=== PATIENT | female | born 1945 | race Caucasian/White ===

== ENCOUNTER 2017-09-11 17:40 | Emergency (ER) | payer MEDICARE ==
[~2017-09-11] VITALS: Ht 167.6 cm; Wt 47.6 kg
[2017-09-11 18:28] LABS: BASOPHILS % 0.2 % (0.0-1.0); EOSINOPHILS # (AUTO) 0.2 (0.0-0.4); EOSINOPHILS % 1.7 % (0.0-6.0); HEMATOCRIT 32.9 % (34.2-44.1); HEMOGLOBIN 11.3 g/dL (12.0-16.0); LYMPHOCYTES # (AUTO) 1.5 (1.0-3.2); LYMPHOCYTES % 16.3 % (18.0-39.1); MEAN CORPUSCULAR HEMOGLOBIN 28.3 pg (28-32); MEAN CORPUSCULAR HGB CONC 34.3 g/dL (31-35); MEAN CORPUSCULAR VOLUME 82.5 fL (81-99); MONOCYTES # (AUTO) 0.6 (0.2-0.8); MONOCYTES % 6.7 % (4.4-11.3); NEUTROPHILS # (AUTO) 6.9 (2.1-6.9); NEUTROPHILS % 74.9 % (38.7-80.0); PLATELET COUNT 322 x10e3/uL (140-360); RED BLOOD COUNT 3.99 x10e6/uL (3.6-5.1); RED CELL DISTRIBUTION WIDTH 12.8 % (11.7-14.4)
[2017-09-11 18:51] LABS: ALANINE AMINOTRANSFERASE 11 IU/L (0-55); ALBUMIN 2.8 g/dL (3.5-5.0); ALBUMIN/GLOBULIN RATIO 0.9 (0.8-2.0); ALKALINE PHOSPHATASE 70 IU/L (40-150); ANION GAP 11.1 mmol/L (8-16); BLOOD UREA NITROGEN 9 mg/dL (7-26); BUN/CREATININE RATIO 16 (6-25); CALCIUM 8.5 mg/dL (8.4-10.2); CARBON DIOXIDE 23 mmol/L (22-29); CHLORIDE 100 mmol/L (98-107); CREATININE, SERUM 0.58 mg/dL (0.57-1.11); EST GLOMERULAR FILTRATION RATE > 60 ML/MIN (60-); GLUCOSE 100 mg/dL (74-118); POTASSIUM 3.1 mmol/L (3.5-5.1); SODIUM 131 mmol/L (136-145)
[2017-09-11] MEDS ORDERED: POTASSIUM CHLORIDE 10 MEQ TABCR PO ONE (19:45)
[2017-09-11 21:43] VITALS: BP 157/73
== END 2017-09-11 21:50 | disposition home or self-care (01) ==
LOC: ER 17:40
DX: R10.9 Unspecified abdominal pain (principal); R11.0 Nausea; R19.7 Diarrhea, unspecified; I10 Essential (primary) hypertension; I51.9 Heart disease, unspecified; J98.4 Other disorders of lung; J44.9 Chronic obstructive pulmonary disease, unspecified; E03.9 Hypothyroidism, unspecified; Z85.3 Personal history of malignant neoplasm of breast
CPT/HCPCS: 36415; 80053; 83735; 85025; 99283

== ENCOUNTER 2018-01-10 16:12 | Emergency (ER) | payer MEDICARE ==
[~2018-01-10] VITALS: Ht 167.6 cm; Wt 47.6 kg
[2018-01-10 17:02] VITALS: BP 155/80
== END 2018-01-10 17:08 | disposition home or self-care (01) ==
LOC: FSED 16:12
DX: R30.0 Dysuria (principal); N30.91 Cystitis, unspecified with hematuria; I10 Essential (primary) hypertension; J44.9 Chronic obstructive pulmonary disease, unspecified; Z85.3 Personal history of malignant neoplasm of breast
CPT/HCPCS: 81003; 87086; 87186; 99283

== ENCOUNTER 2018-11-19 09:41 | Emergency (ER) | payer MEDICARE ==
[~2018-11-19] VITALS: Ht 167.6 cm; Wt 47.6 kg
[2018-11-19] MEDS ORDERED: astelin INH (09:54)
[2018-11-19] MEDS ORDERED: FLUTICASONE PRO15 GM INH (09:54)
[2018-11-19] MEDS ORDERED: LEVOTHYROXINE75 MCG PO (10:00)
[2018-11-19] MEDS ORDERED: SODIUM CHLORI1000 MG (10:00)
[2018-11-19] MEDS ORDERED: VENTOLIN HFA18 GM INH (10:00)
[2018-11-19] MEDS ORDERED: PROBIOTIC DIGE1 EACH (10:00)
[2018-11-19] MEDS ORDERED: ESTER-C 1,0001 EACH (10:00)
[2018-11-19] MEDS ORDERED: XOPENEX0.63 MG/3 INH (10:00)
[2018-11-19] MEDS ORDERED: OMEPRAZOLE20 MG PEG (10:00)
[2018-11-19] MEDS ORDERED: MULTI-VITAMIN1 EACH (10:00)
[2018-11-19] MEDS ORDERED: ZOFRAN4 MG PO (10:00)
[2018-11-19] MEDS ORDERED: POTASSIUM CHLO20 ME1 PO (10:00)
[2018-11-19] MEDS ORDERED: SPIRIVA18 MCG INH (10:00)
[2018-11-19] MEDS ORDERED: PROMETHAZINE HC25 M1 PO (10:00)
[2018-11-19] MEDS ORDERED: ZOCOR20 MG PO (10:00)
[2018-11-19] MEDS ORDERED: ADVAIR 500/501 EA INH (10:00)
[2018-11-19] MEDS ORDERED: TAMOXIFEN CITRA10 MG PO (10:01)
--- NOTE | 2018-11-19 10:06 | NUR ---
escorted md for visual of gu area.
--- NOTE | 2018-11-19 10:09 | NUR ---
CX COLLECTED AND LABELLED AND PLACED IN FRIDGE FOR COLLECTION FOR PMC
== END 2018-11-19 10:14 | disposition home or self-care (01) ==
LOC: FSED 09:41
DX: R30.0 Dysuria (principal); R10.2 Pelvic and perineal pain; I10 Essential (primary) hypertension; J44.9 Chronic obstructive pulmonary disease, unspecified; Z85.3 Personal history of malignant neoplasm of breast
CPT/HCPCS: 81003; 87086; 99283

== ENCOUNTER 2020-04-14 10:59 | Emergency (ER) | payer MEDICARE ==
[~2020-04-14] VITALS: Ht 167.6 cm; Wt 49.0 kg
[~2020-04-14 10:59] MED LIST: ADVAIR 500/501 EA INH; ESTER-C 1,0001 EACH; FLUTICASONE PRO15 GM INH; LEVOTHYROXINE75 MCG PO; MULTI-VITAMIN1 EACH; OMEPRAZOLE20 MG PEG; POTASSIUM CHLO20 ME1 PO; PROBIOTIC DIGE1 EACH; PROMETHAZINE HC25 M1 PO; SODIUM CHLORI1000 MG; SPIRIVA18 MCG INH; TAMOXIFEN CITRA10 MG PO; VENTOLIN HFA18 GM INH; XOPENEX0.63 MG/3 INH; ZOCOR20 MG PO; ZOFRAN4 MG PO; astelin INH
[2020-04-14] MEDS ORDERED: CEPHALEXIN500 MG PO (11:51)
--- NOTE | 2020-04-14 11:57 | Emergency Department Note ---
History of Present Illnes History of Present Illness Chief Complaint: Genitourinary History of Present Illness This is a 74 year old female that has had difficulty urinating for the past week. Patient states that she has a sense of urgency after she started urinating. Patient denies dysuria. Patient states that she has had prior bladder suspension surgeries and today she feels like prior to needing one of them. Denies any fever or chills, no flank pain. . Arrival Mode: Car Onset (how long ago): week(s) (1) Radiation: Reports non-radiation Severity: moderate Duration (how long): week(s) (1) Timing of current episode: constant Progression: worsening Chronicity: recurrent Relieving factors: none Exacerbating factors: none Associated symptoms: Denies denies other symptoms, Denies confusion, Denies chest pain, Denies cough, Denies fever/chills, Denies nausea/vomiting, Denies shortness of breath Treatments prior to arrival: none Past Medical/Family History Physician Review I have reviewed the patient's past medical and family history. Any updates have been documented here. Past Medical History Past Medical History: Hypertension, COPD, Asthma, Hypothyroidism, Cancer, UTI's, GERD, Hyperlipedemia Other Medical History: Breast cancer Hyponatremia Past Surgical History: Cholecysctectomy, Hysterectomy, Hernia Repair Other Surgery: Hernia Repair vein stripping Other Last Tetanus: UNK Review of Systems Review of Systems Constitutional: Reports no symptoms EENTM: Reports no symptoms Cardiovascular: Reports no symptoms Respiratory: Reports no symptoms Gastrointestinal: Reports no symptoms Genitourinary: Reports as per HPI Musculoskeletal: Reports no symptoms Integumentary: Reports no symptoms Neurological: Reports no symptoms Psychological: Reports no symptoms Endocrine: Reports no symptoms Hematological/Lymphatic: Reports no symptoms Physical Exam Related Data Allergies: Coded Allergies: No Known Allergies (Unverified , 09/11/17) Physical Exam CONSTITUTIONAL Constitutional: Present well-developed, Present well-nourished HENT HENT: Present normocephalic, Present atraumatic, Present oropharynx c lear/moist, Present nose normal HENT L/R: Present left ext ear normal, Present right ext ear normal EYES Eyes: Reports PERRL, Reports conjunctivae normal NECK Neck: Present ROM normal PULMONARY Pulmonary: Present effort normal, Present breath sounds normal CARDIOVASCULAR Cardiovascular: Present regular rhythm, Present heart sounds normal, Present capillary refill normal, Present normal rate GASTROINTESTINAL Abdominal: Present soft, Present nontender, Present bowel sounds normal GENITOURINARY Genitourinary: Present other (therapy RN present in the room, no bladder prolapse through the introitus) SKIN Skin: Present warm, Present dry MUSCULOSKELETAL Musculoskeletal: Present ROM normal NEUROLOGICAL Neurological: Present alert, Present oriented x 3, Present no gross motor or sensory deficits PSYCHOLOGICAL Psychological: Present mood/affect normal, Present judgement normal Assessment & Plan Medical Decision Making MDM 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 Patient feels that she is unable to empty her bladder. Lbrao-ld-mxxf ultrasound did not reveal a distended bladder, patient d id try to urinate prior to and felt that she could not void fully. We did place a Spencer catheter, minimal residual. Patient would like to leave the Spencer catheter in and have her surgeon evaluate her. We did send urine for culture, did have some leuk esterase on the dipstick. We will treat given that we cannot get a micro here. Assessment & Plan Final Impression: (1) UTI (urinary tract infection) (2) Urinary urgency Depart Disposition: HOME, SELF-FCI Meds Active Scripts Cephalexin (CEPHALEXIN) 500 Mg Capsule, 500 MG PO TID for 7 Days, CAP Prov:AGUILAR HINES MD 04/14/20 Reported Medications Tamoxifen Citrate (TAMOXIFEN CITRATE) 10 Mg Tablet, 20 MG PO DAILY, #30 TAB 11/19/18 Sodium Chloride (SODIUM CHLORIDE) 1,000 Mg Tablet.carolyn 11/19/18 Promethazine Hcl (PROMETHAZINE HCL) 25 Mg Tablet, 25 MG PO DAILY, TAB 11/19/18 Ondansetron Hcl* (ZOFRAN*) 4 Mg Tablet, 4 MG PO PRN 11/19/18 Potassium Chloride (POTASSIUM CHLORIDE) 20 Meq Tab.er.prt, 1 CAP PO DAILY 11/19/18 Ascorbate Calcium/Bioflav (JULIANE-C 1,000 MG TABLET) 1 Each Tablet 11/19/18 Omeprazole (OMEPRAZOLE) 20 Mg Capsule.dr, 1 CAP PEG DAILY 11/19/18 Multivitamin (MULTI-VITAMIN DAILY) 1 Each Tablet 11/19/18 Lactobacillus Rhamnosus R0011 (PROBIOTIC DIGESTIVE CARE) 1 Each Capsule 11/19/18 Tiotropium Moyers (SPIRIVA) 18 Mcg Cap.w.dev, 18 MCG INH DAILY, BOTTLE 11/19/18 Levothyroxine Sodium (LEVOTHYROXINE SODIUM) 75 Mcg Tablet, 75 MCG PO DAILY, #30 TAB 11/19/18 Simvastatin (ZOCOR) 20 Mg Tablet, 20 MG PO HS, #30 TAB 11/19/18 Salmeterol Xinaf/Fluticasone* (ADVAIR 500/50*) 1 Ea Aerp, 1 INH INH Q12H, #1 INH 11/19/18 Levalbuterol Hcl (XOPENEX) 0.63 Mg/3 Ml Vial.neb, 63 MCG INH PRN 11/19/18 Albuterol Sulfate (VENTOLIN HFA) 18 Gm Hfa.aer.ad, 90 MCG INH pr 11/19/18 [astelin] No Conflict Check, 137 MCG INH PRN 11/19/18 Fluticasone Propionate (FLUTICASONE PROPIONATE) 15 Gm Cr, 50 MCG INH PRN 11/19/18 AGUILAR HINES MD Apr 14, 2020 11:57
--- OUTSIDE RECORDS SUMMARY | 2020-04-14 11:57 | XMS REPORT | Summary of Care ---
Author Author [facility] Organization [facility] Address Unknown Phone Unavailable Encounter TOYIN Mcdowell(ANT) [id number] Date(s): 11/08/19 - 11/08/[address] [address]- Discharge Disposition: Home or Self Care Attending Physician: Juanjose Meyer MD Referring Physician: Juanjose Meyer MD Vital Signs No data available for this section Problem List Condition Effective Dates Status Health Status Informaria Lynn 12/22/14 Active baumannii(Confirmed) 1, 2 Arthritis of 01/01/11 Active acromioclavicular joint3, 4 Asthma5, 6 Active Breast Active ca(Confirmed)7 Chemotherapy(Confirm Resolved ed)8 Cholecystectomy(Conf Active irmed) Chronic obstructive Active pulmonary disease(Confirmed) Female stress Active incontinence(Confirm ed) 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) GERD Active (gastroesophageal reflux disease)(Confirmed) HTN - Active Hypertension(Confirm ed) Hyponatremia(Confirm Resolved ed) Hypothyroidism(Confi Active rmed) Hysterectomy(Confirm Active ed) Midline Active cystocele(Confirmed) Osteoporosis(Confirm Active ed) Rotator cuff 01/01/11 Active syndrome9, 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/01/11 Active [id number], 12 Sprain of foot13, 14 01/01/11 Active Uterine Active prolapse(Confirmed) Enterocele(Confirmed Active ) 1MDRO -- SPUTUM, 12/22/2014 2Problem added by Discern Expert. 3Data migrated from [employer] on 02/11/15. 4Data migrated from [employer] on 02/11/15. 5Data migrated from [employer] on 02/11/15. 6Data migrated from [employer] on 02/11/15. 7right breast 83 weeks ago got last chemo 9Data migrated from [employer] on 02/11/15. 10Data migrated from [employer] on 02/11/15. 11Data migrated from [employer] on 02/11/15. 12Data migrated from [employer] on 02/11/15. 13Data migrated from [employer] on 02/11/15. 14Data migrated from [employer] on 02/11/15. Allergies, Adverse Reactions, Alerts Substance Reaction Severity Status "RAW SHRIMP" Active NKDA Active Food Shrimp Active Medications No data available for this section Results No data available for this section Immunizations Given and Recorded Vaccine Date Status Refusal Reason Hx influenza vaccine-unspecified 05/14/17 Given influenza virus vaccine, inactivated 07/02/14 G iven Hx pneumococcal vaccine 11/12/11 Given Procedures Procedure Date Related Diagnosis Body Site Status Bladder operation Completed Cholecystectomy Completed Hernia repair Completed Hysterectomy Completed Insertion of [id number] Completed 1left side. oct 2014 placed Social History Social History Type Response Alcohol Past1 Employment/School Status: Employed. Highest education level: University degree(s). Exercise Exercise type: Walking, Yog a. Sexual Sexually active: No. Substance Abuse Use: None. Smoking Status Former smoker; Previous frankie atment: None; Ready to change: No; Concerns about tobacco use in household: No; Exp osure to Tobacco Smoke None; Cigarette Smoking Last 365 Days No; Reg Smoking Cessation Counseling No; Started at age: 1.0; Stopped at age: 1 ; 2 entered on: 07/31/19 1"when I was younger" stated by patient, does not consume alcohol anymore. 2smoked 25 years ago, stopped smoking Assessment and Plan No data available for this section
--- OUTSIDE RECORDS SUMMARY | 2020-04-14 11:57 | XMS REPORT ---
Author Author CECILY ALMAZAN [facility] eClinicalWorks Address Unknown Phone Unavailable Care Team Providers Care Iuss Acoustic Analyst Name Role Phone TALI ALMAZAN Unavailable Allergies, Adverse Reactions, Alerts Substance Reaction Event Type N.K.D.A. Info Not Available Non Drug Allergy Problems Problem Type Condition Code Onset Dates Condition Statu s Problem COPD 496 Active Problem Sinusitis, Chronic 473.9 Active Problem Asthmatic Bronchitis, Unspecified 493.90 Active Assessment ASTHMA NOS 493.90 Active Assessment Sinusitis, Chronic 473.9 Active Problem Asthma w/Acute Exacerbation 493.92 Active Medications Medication Code System Code Instructions Start Date End Date Status Dosage simvastatin [facility] 86072917860 20 mg orally once a day (at bedtim e) December 29, 2011 Active 1 tab(s) omega-3 polyunsaturated fatty acids [facility] 65100522042 ethyl esters 1000 mg orally 2 times a day Active 2 cap(s) Linda-C [facility] 59723072264 1000 mg orally once a day Ac tive 1 tab(s) Calcium 600+D [facility] 54342578561 600 mg-200 units orally 3 times a day Active 1 tab(s) Zocor ND 89348036750 20 mg orally once a day (at bedtime) Active 1 tab(s) Duexis [facility] 40030263453 26.6 mg-800 mg orally 3 times a day Active 1 tab(s) levothyroxine [facility] 12401762407 75 mcg (0.075 mg) orally once a day Active 1 tab(s) Spiriva NDC 0 18MCG inhaled QD Active inhale one via handihaler one time daily Saline Mist ND 06880249011 0.65% intranasally bid Jun 23, 2012 Active 2 spray(s) Advair Diskus ND 51289643843 500 mcg-50 mcg inhaled bid December 132012 Active use one inhalation twice daily Ventolin HFA NDC 0 CFC free 90 mcg/inh inhaled qid January 06 013 Active 2 puff(s) Xopenex NDC 76383210666 0.63 mg/3 mL by nebulizer bid Active 3 ml Boniva NDC 85328471135 150 mg orally once a month A ctive 1 tab(s) Diovan NDC 50230263149 80 mg orally once a day Acti ve 1 tab(s) Astelin NDC 0 137 mcg/inh intranasally QD January 06, 2013 Active 2 spray(s) fluticasone nasal NDC 28850376198 50 mcg/inh intranasally once a day Sep 26, 2012 Active 1 spray(s) Vital Signs Date/Time: February 28, 2013 Temperature 98.2 F Height N/A in Weight 125 lbs BMI 20.17 Index Cardiac Monitoring Heart Rate 84 /min Blood Pressure Diastolic 58 mm Hg Blood Pressure Systolic 126 mm Hg Results No Known Results Summary Purpose eClinicalWorks Submission
--- OUTSIDE RECORDS SUMMARY | 2020-04-14 11:57 | XMS REPORT ---
Author Author CECILY ALMAZAN [facility] eClinicalWorks Address Unknown Phone Unavailable Care Team Providers Care Sap Basis Administrator Name Role Phone TALI ALMAZAN Unavailable Allergies, Adverse Reactions, Alerts Substance Reaction Event Type N.K.D.A. Info Not Available Non Drug Allergy Problems Problem Type Condition Code Onset Dates Condition Statu s Assessment Sinusitis, Acute, Unspecified 461.9 Active Assessment Dyspnea 786.09 Active Problem COPD 496 Active Problem Sinusitis, Chronic 473.9 Active Problem Asthmatic Bronchitis, Unspecified 493.90 Active Assessment Asthmatic Bronchitis, Unspecified 493.90 Active Assessment Sinusitis, Chronic 473.9 Active Problem Asthma w/Acute Exacerbation 493.92 Active Medications Medication Code System Code Instructions Start Date End Date Status Dosage Calcium 600+D ND 75830500197 600 mg-200 units orally 3 times a day Active 1 tab(s) Spiriva NDC 0 18MCG inhaled QD Active inhale one via handihaler one time daily levothyroxine NDC 98651564681 75 mcg (0.075 mg) orally once a day Active 1 tab(s) Astelin NDC 0 137 mcg/inh intranasally QD January 06, 2013 Active 2 spray(s) Xopenex NDC 32313597007 0.63 mg/3 mL by nebulizer bid Active 3 ml Duexis ND 54215586020 26.6 mg-800 mg orally 3 times a day Active 1 tab(s) Advair Diskus NDC 96529052390 500 mcg-50 mcg inhaled bid December 132012 Active use one inhalation twice daily Boniva NDC 29202007231 150 mg orally once a month April 03, 2013 Active 1 tab(s) Zocor NDC 91429450391 20 mg orally once a day (at bedtime) Active 1 tab(s) Saline Mist NDC 77958713495 0.65% intranasally bid Jun 23, 2012 Active 2 spray(s) fluticasone nasal NDC 88536970530 50 mcg/inh intranasally once a day Sep 26, 2012 Active 1 spray(s) guaifenesin [facility] 08556619699 400 mg orally every 4 hours Apr 28, 2013 Active 1 tab(s) Avelox ND 34302906465 400 mg orally once a day Apr 28, 2013 Active 1 tab(s) Diovan ND 53279303276 80 mg orally once a day Acti ve 1 tab(s) omega-3 polyunsaturated fatty acids [facility] 16102291539 ethyl esters 1000 mg orally 2 times a day Active 2 cap(s) Linda-C [facility] 56531951202 1000 mg orally once a day Ac tive 1 tab(s) Ventolin HFA NDC 0 CFC free 90 mcg/inh inhaled qid January 06 013 Active 2 puff(s) simvastatin ND 20986792371 20 mg orally once a day (at bedtim e) April 03, 2013 Active 1 tab(s) Vital Signs Date/Time: Apr 28, 2013 Temperature 98.3 F Height N/A in Weight 126 lbs BMI 20.33 Index Cardiac Monitoring Heart Rate 76 /min Blood Pressure Diastolic 72 mm Hg Blood Pressure Systolic 128 mm Hg Results No Known Results Summary Purpose eClinicalWorks Submission
--- OUTSIDE RECORDS SUMMARY | 2020-04-14 11:57 | XMS REPORT ---
Author Author CECILY ALMAZANNHCRISSY [facility] eClinicalWorks Address Unknown Phone Unavailable Care Team Providers Care Senior Integration Architect Name Role Phone TALI ALMAZAN Unavailable Allergies, Adverse Reactions, Alerts Substance Reaction Event Type N.K.D.A. Info Not Available Non Drug Allergy Encounters Encounter Location Date Unknown [facility] April 12, 2014 lab results [facility] January 31, 2013 [facility] Aug 17, 2013 [facility] November 16, 2013 Problems Problem Type Condition ICD-9 Code Onset Dates Condition Statu s Problem COPD 496 Active Problem Sinusitis, Chronic 473.9 Active Problem Asthmatic Bronchitis, Unspecified 493.90 Active Assessment Sinusitis, Chronic 473.9 Active Assessment ASTHMA NOS 493.90 Active Problem Asthma w/Acute Exacerbation 493.92 Active Assessment COPD 496 Active Medications Medication Code System Code Instructions Start Date End Date Status Dosage Boniva MULTUM 27651 150 mg orally once a month April 03, 2013 Active 1 tab(s) Zocor [facility] 1546 20 mg orally once a day (at bedtime) Active 1 tab(s) Avelox MULTUM 39523 400 mg orally once a day Apr 28, 2013 Ac tive 1 tab(s) Diovan [facility] 8844 80 mg orally once a day Active 1 tab(s) Mucinex [facility] 56357 600 mg orally every 12 hours Aug 03, 2013 Active 1 tab(s) Xopenex [facility] 78701 0.63 mg/3 mL by nebulizer bid Ac tive 3 ml Astelin [facility] 6422 137 mcg/inh intranasally QD February 08, 2014 Active 2 spray(s) Linda-C [facility] 28978 1000 mg orally once a day Active 1 tab(s) Duexis [facility] 488856 26.6 mg-800 mg orally 3 times a day Active 1 tab(s) fluticasone nasal [facility] 52357 50 mcg/inh intranasally once a day Jul 18, 2013 Active 1 spray(s) simvastatin [facility] 39237 20 mg orally once a day (at bedtime) J imelda 2012 Active 1 tab(s) Ventolin HFA [facility] 96847 CFC free 90 mcg/inh inhaled qid prn J an 2013 Active 2 puff(s) Saline Mist [facility] 38433 0.65% intranasally bid Jun 23, 2012 Active 2 spray(s) Spiriva [facility] 12108 18MCG inhaled QD Active inhale one via handihaler one time daily Advair Diskus [facility] 94566 500 mcg-50 mcg inhaled bid January 06, 2013 Active use one inhalation twice daily guaifenesin [facility] 86893 400 mg orally every 4 hours Apr 28, 2013 Active 1 tab(s) omega-3 polyunsaturated fatty acids [facility] 71731 ethyl esters 1000 mg orally 2 times a day Active 2 cap(s) ibandronate [facility] 79625 150 mg orally once a month March 13, 2014 Active 1 tab(s) levothyroxine [facility] 98061 75 mcg (0.075 mg) orally once a day March 12, 2014 Active 1 tab(s) Calcium 600+D [facility] 089023 600 mg-200 units orally 3 times a day Active 1 tab(s) Social History Social History Element Qualifiers Date Reported Caffeine: yes. frequency:2 cups a day April 12 14 Tabacco Use no. Status Former Smoker April 12, 2014 Vital Signs Date/Time: April 12, 2014 Temperature 98.6 F Height 66 in Weight 117 lbs Cardiac Monitoring Heart Rate 67 /min Blood Pressure Diastolic 74 mm Hg Blood Pressure Systolic 136 mm Hg Summary Purpose eClinicalWorks Submission
--- OUTSIDE RECORDS SUMMARY | 2020-04-14 11:57 | XMS REPORT | Summary of Care ---
Author Author [facility] Organization [facility] Address Unknown Phone Unavailable Encounter TOYIN Mcdowell(FIN) [id number] Date(s): 07/14/19 - 07/15/19 [facility] [address] [place] [address]- [phone] Vital Signs No data available for this section Problem List Condition Effective Dates Status Health Status Informan t Acinetobacter 12/22/14 Active baumannii(Confirmed) 1, 2 Arthritis of [...] Active syndrome9, 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/01/11 Active [id number], 12 Sprain of foot13, 14 01/01/11 Active [...] Active NKDA Active Food Shrimp Active Medications amoxicillin 500 mg oral capsule 500 mg = 1 cap, PO, TID, X 7 day, # 21 cap, 0 Refill(s), Pharmacy: [id number] Start Date: 07/14/19 Stop Date: 07/21/19 Status: Ordered Results No data available for this section Immunizations Given and Recorded Vaccine Date Status Refusal Reason Hx influenza vaccine-unspecified 05/14/17 Given influenza virus vaccine, inactivated 07/02/14 G iven Hx pneumococcal vaccine 11/12/11 Given Procedures Procedure Date Related Diagnosis Body Site Status Bladder operation Completed Cholecystectomy Completed Hernia repair Completed Hysterectomy Completed Insertion of [id number] Completed 1left side. oct 2014 placed Social [...] at age: 1 ; 2 entered on: 07/11/19 1"when I was younger" stated by patient, does not consume alcohol anymore. 2smoked 25 years ago, stopped smoking Assessment and Plan No data available for this section
--- OUTSIDE RECORDS SUMMARY | 2020-04-14 11:57 | XMS REPORT ---
Author Author CECILY ALMAZAN Organization [employer]Clinical[employer] Address Unknown Phone Unavailable Care Team Providers Care Claims Account Specialist Name Role Phone TALI ALMAZAN Unavailable Encounters Encounter Location Date Unknown [facility] April 12, 2014 [facility] Jun 14, 2014 lab results [facility] January 31, 2013 [facility] Aug 17, 2013 [facility] November 16, 2013 Problems Problem Type Condition ICD-9 Code Onset Dates Condition Statu s Problem COPD 496 Active Problem Sinusitis, Chronic 473.9 Active Problem Asthmatic Bronchitis, Unspecified 493.90 Active Problem Asthma w/Acute Exacerbation 493.92 Active Medications Medication Code System Code Instructions Start Date End Date Status Dosage Levaquin MULT[facility] 6466 500 mg orally every 24 hours Jun 14, 2014 Active 1 tab(s) Social History Social History Element Qualifiers Date Reported Caffeine: yes. frequency:2 cups a day April 12 14 Tabacco Use no. Status Former Smoker April 12, 2014 Summary Purpose eClinicalWorks Submission
--- OUTSIDE RECORDS SUMMARY | 2020-04-14 11:57 | XMS REPORT ---
Author Author CECILY ALMAZAN [facility] eClinicalWorks Address Unknown Phone Unavailable Care Team Providers Care Living Advisor Name Role Phone TALI ALMAZAN Unavailable Allergies, Adverse Reactions, Alerts Substance Reaction Event Type N.K.D.A. Info Not Available Non Drug Allergy Problems Problem Type Condition Code Onset Dates Condition Statu s Problem COPD 496 Active Problem Sinusitis, Chronic 473.9 Active Problem Asthmatic Bronchitis, Unspecified 493.90 Active Assessment COPD 496 Active Assessment Sinusitis, Chronic 473.9 Active Problem Asthma w/Acute Exacerbation 493.92 Active Medications Medication Code System Code Instructions Start Date End Date Status Dosage Ventolin HFA NDC 0 CFC free 90 mcg/inh inhaled qid January 06 013 Active 2 puff(s) Linda-C NDC 34934863237 1000 mg orally once a day Ac tive 1 tab(s) Boniva ND 26635372512 150 mg orally once a month April 03, 2013 Active 1 tab(s) Saline Mist ND 67304776133 0.65% intranasally bid Jun 23, 2012 Active 2 spray(s) Advair Diskus ND 02207236582 500 mcg-50 mcg inhaled bid December 132012 Active use one inhalation twice daily Avelox ND 30819262951 400 mg orally once a day Apr 28, 2013 Active 1 tab(s) fluticasone nasal NDC 97302691661 50 mcg/inh intranasally once a day Sep 26, 2012 Active 1 spray(s) Duexis ND 48898261036 26.6 mg-800 mg orally 3 times a day Active 1 tab(s) Zocor ND 59690333713 20 mg orally once a day (at bedtime) Active 1 tab(s) Astelin NDC 0 137 mcg/inh intranasally QD January 06, 2013 Active 2 spray(s) guaifenesin ND 26045123207 400 mg orally every 4 hours Apr 28, 2013 Active 1 tab(s) omega-3 polyunsaturated fatty acids NDC 63857163995 ethyl esters 1000 mg orally 2 times a day Active 2 cap(s) simvastatin ND 21719929615 20 mg orally once a day (at bedtim e) April 03, 2013 Active 1 tab(s) Calcium 600+D ND 80276553729 600 mg-200 units orally 3 times a day Active 1 tab(s) Diovan ND 96045435977 80 mg orally once a day Acti ve 1 tab(s) Xopenex ND 19103804491 0.63 mg/3 mL by nebulizer bid Active 3 ml Spiriva NDC 0 18MCG inhaled QD Active inhale one via handihaler one time daily levothyroxine ND 92041836753 75 mcg (0.075 mg) orally once a day May 26, 2013 Active 1 tab(s) Vital Signs Date/Time: Jun 12, 2013 Temperature 98.5 F Height N/A in Weight 126 lbs BMI 20.33 Index Cardiac Monitoring Heart Rate 67 /min Blood Pressure Diastolic 70 mm Hg Blood Pressure Systolic 124 mm Hg Results No Known Results Summary Purpose eClinicalWorks Submission
--- OUTSIDE RECORDS SUMMARY | 2020-04-14 11:57 | XMS REPORT ---
Author Author CECILY ALMAZAN [facility] eClinicalWorks Address Unknown Phone Unavailable Care Team Providers Care Material Checker Name Role Phone TALI ALMAZAN Unavailable Encounters Encounter Location Date Unknown [facility] April 12, 2014 [facility] Jun 14, 2014 [facility] Jul 20, 2014 [facility] Aug 16, 2014 lab results [facility] January 31, 2013 [facility] Aug 17, 2013 [facility] November 16, 2013 Problems Problem Type Condition ICD-9 Code Onset Dates Condition Statu s Problem COPD 496 Active Problem Sinusitis, Chronic 473.9 Active Problem Asthmatic Bronchitis, Unspecified 493.90 Active Problem Asthma w/Acute Exacerbation 493.92 Active Social History Social History Element Qualifiers Date Reported Caffeine: yes. frequency:2 cups a day Aug 20 4 Tabacco Use no. Status Former Smoker Aug 20, 2014 Summary Purpose eClinicalWorks Submission
--- OUTSIDE RECORDS SUMMARY | 2020-04-14 11:57 | XMS REPORT | Summary of Care ---
Author Author [facility] Organization [facility] Address Unknown Phone Unavailable Encounter [facility] Jeremias(FIN) [id number] Date(s): 06/19/18 - 06/19/18 [facility] [address] [place] [address]- Encounter Diagnosis Unilateral primary osteoarthritis, left hip (Final) - 06/23/18 Trochanteric bursitis, left hip (Final) - Effusion, left hip (Final) - Spinal stenosis, lumbar region without neurogenic claudication (Final) - Radiculopathy, lumbar region (Final) - Other intervertebral disc degeneration, lumbar region (Final) - Spondylolisthesis, lumbosacral region (Final) - Spinal stenosis, lumbosacral region (Final) - Discharge Disposition: Home or Self Care Attending Physician: Damien Hermosillo MD Referring Physician: Damien Hermosillo MD Vital Signs No data available for this section Problem List Condition Effective Dates Status Health Status Informan t Acinetobacter 12/22/14 Active baumannii(Confirmed) 1, 2 Arthritis of 01/01/11 Active acromioclavicular joint3, 4 Asthma5, 6 Active Breast Active ca(Confirmed)7 Chemotherapy(Confirm Resolved ed)8 Cholecystectomy(Conf Active irmed) Chronic obstructive Active pulmonary disease(Confirmed) 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) GERD Active (gastroesophageal reflux disease)(Confirmed) HTN - Active Hypertension(Confirm ed) Hyponatremia(Confirm Resolved ed) Hypothyroidism(Confi Active rmed) Hysterectomy(Confirm Active ed) Osteoporosis(Confirm Active ed) Rotator cuff 01/01/11 Active syndrome9, 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/01/11 Active [id number], 12 Sprain of foot13, 14 01/01/11 Active Uterine Active prolapse(Confirmed) 1MDRO -- SPUTUM, 12/22/2014 2Problem added by [...] Hernia repair Completed Hysterectomy Completed Insertion of [id number] Completed 1left side. oct 2014 placed Social History Social History Type Response Substance Abuse Use: None. Sexual Sexually active: No. Exercise Exercise type: Walking, Yog a. Employment/School Status: Employed. Highest education level: University degree(s). Alcohol Past1 Smoking Status Former smoker; Previous frankie atment: None; Ready to change: No; Concerns about tobacco use in household: No; Exp osure to Tobacco Smoke None; Cigarette Smoking Last 365 Days No; Reg Smoking Cessation Counseling No; Started at age: 1.0; Stopped at age: 1 ; 2 entered on: 09/05/17 1"when I was younger" stated by patient, does not consume alcohol anymore. 2smoked 25 years ago, stopped smoking Assessment and Plan No data available for this section
--- OUTSIDE RECORDS SUMMARY | 2020-04-14 11:57 | XMS REPORT ---
Author Author CECILY HARGROVE Organization [employer]ClinicalWorks Address Unknown Phone Unavailable Care Team Providers Care Financial Internship Name Role Phone AGUILAR HARGROVE Unavailable Encounters Encounter Location Date Unknown [facility] [...] Instructions Start Date End Date Status Dosage Augmentin [facility] 589 875 mg-125 mg orally every 12 hours Jul 20 14 Active 1 tab(s) prednisone MULT[facility] 39806 20 mg orally once a day Jul 20, 2014 Active 2 tabs Social History Social History Element Qualifiers Date Reported Caffeine: yes. frequency:2 cups a day Aug 20 4 Tabacco Use no. Status Former Smoker Aug 20, 2014 Summary Purpose eClinicalWorks Submission
--- OUTSIDE RECORDS SUMMARY | 2020-04-14 11:57 | XMS REPORT ---
Author Author CECILY ALMAZAN [facility] eClinicalWorks Address Unknown Phone Unavailable Care Team Providers Care Instructor Robotics Name Role Phone TALI ALMAZAN Unavailable Allergies, Adverse Reactions, Alerts Substance Reaction Event Type N.K.D.A. Info Not Available Non Drug Allergy Problems Problem Type Condition Code Onset Dates Condition Statu s Assessment Dyspnea 786.09 Active Problem COPD 496 Active Problem Sinusitis, Chronic 473.9 Active Problem Asthmatic Bronchitis, Unspecified 493.90 Active Assessment Asthma w/Acute Exacerbation 493.92 Active Assessment Sinusitis, Chronic 473.9 Active Problem Asthma w/Acute Exacerbation 493.92 Active Medications Medication Code System Code Instructions Start Date End Date Status Dosage simvastatin ND 87950507199 20 mg orally once a day (at bedtim e) December 29, 2011 Active 1 tab(s) Zocor ND 49994916517 20 mg orally once a day (at bedtime) Active 1 tab(s) Calcium 600+D ND 58116655969 600 mg-200 units orally 3 times a day Active 1 tab(s) Duexis ND 76997184977 26.6 mg-800 mg orally 3 times a day Active 1 tab(s) Xopenex ND 41215300028 0.63 mg/3 mL by nebulizer bid Active 3 ml Advair Diskus ND 96912170749 500 mcg-50 mcg inhaled bid December 132012 Active use one inhalation twice daily omega-3 polyunsaturated fatty acids ND 63824710589 ethyl esters 1000 mg orally 2 times a day Active 2 cap(s) Astelin NDC 0 137 mcg/inh intranasally QD January 06, 2013 Active 2 spray(s) Saline Mist ND 11887157150 0.65% intranasally bid Jun 23, 2012 Active 2 spray(s) levothyroxine ND 97752115208 75 mcg (0.075 mg) orally once a day Active 1 tab(s) omeprazole ND 10799964841 20 mg orally once a day May 14, 2 013 Inactive 1 cap(s) Diovan NDC 02227871906 80 mg orally once a day Acti ve 1 tab(s) Linda-C NDC 99676578942 1000 mg orally once a day Ac tive 1 tab(s) Spiriva NDC 0 18MCG inhaled QD Active inhale one via handihaler one time daily Ventolin HFA NDC 0 CFC free 90 mcg/inh inhaled qid January 06 Active 2 puff(s) fluticasone nasal NDC 97892448142 50 mcg/inh intranasally once a day Sep 26, 2012 Active 1 spray(s) Boniva NDC 03072072141 150 mg orally once a month A ctive 1 tab(s) Vital Signs Date/Time: January 24, 2013 Temperature 98.1 F Height N/A in Weight 124 lbs BMI 20.01 Index Cardiac Monitoring Heart Rate 72 /min Blood Pressure Diastolic 84 mm Hg Blood Pressure Systolic 142 mm Hg Results No Known Results Summary Purpose eClinicalWorks Submission
--- OUTSIDE RECORDS SUMMARY | 2020-04-14 11:57 | XMS REPORT ---
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 January 31, 2013 RX [facility] Aug 17, 2013 Unknown [facility] November 16, 2013 Problems Problem Type Condition ICD-9 Code Onset Dates Condition Statu s Problem COPD 496 Active Problem Sinusitis, Chronic 473.9 Active Problem Asthmatic Bronchitis, Unspecified 493.90 Active Assessment COPD 496 Active Assessment Sinusitis, Chronic 473.9 Active Medications Medication Code System Code Instructions Start Date End Date Status Dosage Ventolin HFA MULTUM 03106 CFC free 90 mcg/inh inhaled qid prn J an 2013 Active 2 puff(s) Duexis MULTUM 925324 26.6 mg-800 mg orally 3 times a day Active 1 tab(s) Calcium 600+D MULTUM 643105 600 mg-200 units orally 3 times a day Active 1 tab(s) levothyroxine MULTUM 77885 75 mcg (0.075 mg) orally once a day Oct 02, 2013 Active 1 tab(s) fluticasone nasal MULTUM 14609 50 mcg/inh intranasally once a day Jul 18, 2013 Active 1 spray(s) guaifenesin MULTUM 17656 400 mg orally every 4 hours Apr 28, 2013 Active 1 tab(s) Avelox MULTUM 71663 400 mg orally once a day Apr 28, 2013 Ac tive 1 tab(s) ibandronate MULTUM 53687 150 mg orally once a month Oct 16, 2013 Active 1 tab(s) Xopenex MULTUM 65549 0.63 mg/3 mL by nebulizer bid Ac tive 3 ml Astelin MULTUM 6422 137 mcg/inh intranasally QD January 06, 2013 Active 2 spray(s) Mucinex MULTUM 52894 600 mg orally every 12 hours Aug 03, 2013 Active 1 tab(s) Boniva MULTUM 69092 150 mg orally once a month April 03, 2013 Active 1 tab(s) omega-3 polyunsaturated fatty acids MULTUM 62315 ethyl esters 1000 mg orally 2 times a day Active 2 cap(s) Spiriva MULTUM 47998 18MCG inhaled QD Active inhale one via handihaler one time daily Advair Diskus MULTUM 73129 500 mcg-50 mcg inhaled bid January 06, 2013 Active use one inhalation twice daily simvastatin MULTUM 48213 20 mg orally once a day (at bedtime) J [facility] 2012 Active 1 tab(s) Saline Mist MULTUM 50166 0.65% intranasally bid Jun 23, 2012 Active 2 spray(s) Diovan MULTUM 8844 80 mg orally once a day Active 1 tab(s) Zocor MULTUM 1546 20 mg orally once a day (at bedtime) Active 1 tab(s) Linda-C MULTUM 92649 1000 mg orally once a day Active 1 tab(s) Social History Social History Element Qualifiers Date Reported Caffeine: yes. frequency:2 cups a day November 16 014 Tabacco Use no. Status Former Smoker November 16, 2013 Vital Signs Date/Time: November 16, 2013 Temperature 98.4 F Height 66 inches Weight 122 lbs Cardiac Monitoring Heart Rate 59 Beats per Minute Blood Pressure Diastolic 70 mm Hg Blood Pressure Systolic 138 mm Hg Results Thyroid stimulating Hormone Summary Purpose eClinicalWorks Submission
--- OUTSIDE RECORDS SUMMARY | 2020-04-14 11:57 | XMS REPORT ---
Author Author CECILY ALMAZAN [facility] eClinicalWorks Address Unknown Phone Unavailable Care Team Providers Care Production Grader Name Role Phone TALI ALMAZAN CP Unavailable Encounters Encounter Location Date lab results [facility] January 31, 2013 Problems Problem Type Condition ICD-9 Code Onset Dates Condition Statu s Problem COPD 496 Active Problem Sinusitis, Chronic 473.9 Active Problem Asthmatic Bronchitis, Unspecified 493.90 Active Social History Social History Element Qualifiers Date Reported Caffeine: yes. frequency:2 cups a day January 24 3 Tabacco Use no. Status Former Smoker January 24, 2013 Vital Signs Date/Time: January 24, 2013 Temperature 98.1 F Height 66 inches Weight 124 lbs Cardiac Monitoring Heart Rate 72 Beats per Minute Blood Pressure Diastolic 84 mm Hg Blood Pressure Systolic 142 mm Hg Summary Purpose eClinicalWorks Submission
--- OUTSIDE RECORDS SUMMARY | 2020-04-14 11:57 | XMS REPORT | Continuity of Care Document ---
Author Author [facility] Address Unknown Phone Unavailable Care Team Providers Care Weed Science Research Technician Name Role Phone [employer] Information [employer] Unavailable Un available Problems Problem Status Onset Date Classification Date Reported Comments Source BREAST CANCER Active 10/26/2019 [facility] BREAST CA Active 08/07/2019 [facility] BLADDER SLING Active 05/25/2019 [facility] DX; M51.36=OTHER INTERVERTEBRAL DISC DEG Active 04/07/2019 [facility] Malignant neoplasm of unspecified site o f right female breast 10/21/2018 05/07/2019 [facility] [place] Age-related osteoporosis without current pathological fracture 08/08/2018 02/19/2019 [facility] C50.211//M81.0 Active 07/26/2018 [facility] C50.211 BREAST CANCER Active 06/29/2018 [facility] BREAST CANCER C50.919 Active 06/29/2018 [facility] Unilateral primary osteoarthritis, left hip 06/24/2018 01/06/2019 [facility] DX: M16.12/M70.62PORT Active 05/30/2018 [facility] Malignant neoplasm of unspecified site o f unspecified female breast 12/28/2017 04/28/2018 [facility] Displaced fracture of triquetrum [cuneif orm] bone, left wrist, initial encounter for closed fracture 7 09/08/2017 [facility] FALL/ARM PAIN Active 09/03/2017 [facility] SHORTNESS OF BREATH Active 07/20/2017 [facility] DYSPNEA, COPD EXACERBATION Act glynn 07/20/2017 [facility] PNEUMONIA J18.9 Active 07/19/2017 [facility] BACKACHE Active 03/24/2017 [facility] M54.5 BACKACHE, C50.919 Active 03/24/2017 [facility] BREAST CANCER, C50.911 Active 11/18/2016 [facility] HYPONATREMIA, CONSTIPATION Ac tive 10/14/2016 [facility] DIZZINESS, WEAKNESS, OTHER Act glynn 10/14/2016 [facility] M75.80 OTHER SHOULDER LESIONS, UNSPECIFI Active 08/03/2016 [facility] M75.80 OTHER SHOULDER LESIONS, RIGHT JOSIE Active 08/03/2016 [facility] CHEST PAIN/BREAST CA Active 02/17/2016 [facility] BACKACHE, CA BREAST Active 01/29/2016 [facility] CA OF RIGHT BREAST Active 01/22/2016 [facility] CA OF RIGHT BREAST C50.919 Ac tive 01/22/2016 [facility] Discharge Diagnosis: Back pain 01/11/2016 01/14/2016 [facility] BACK PAIN Active 01/11/2016 [facility] CHEST PAIN, C50.919 BREAST CA Active 01/07/2016 [facility] R07.9 CHEST PAIN, C50.919 BREAST CA Active 01/07/2016 [facility] M75.80 Active 12/09/2015 [facility] M75.80, OTHER SHOULDER LESIONS, UNSPEC S Active 12/09/2015 [facility] LEFT BREAST MASS N63, INFLAMMATORY CA BR Active 11/04/2015 [facility] BREAST C50.919 Active 09/26/2015 [facility] CHEST PAIN Active 08/13/2015 [facility] CA OF BREAST /// INFLAMATORY CA OF RIGHT Active 07/19/2015 [facility] BREAST CA 174.9 Active 04/04/2015 [facility] RESP DISTRESS Active 01/24/2015 [facility] SEVERE HYPONATREMIA, PNEUMONIA Active 01/24/2015 [facility] CONSTIPATION Active 01/15/2015 [facility] 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 [facility], [facility], [place], [facility] CHEMO PT.WEAKNESS, NAUSES Acti ve 12/07/2014 [facility] HYPONATREMIA; NAUSEA AND VOMITING; WEAKN Active 12/07/2014 [facility] WEAKNESS, DIARRHEA, NAUSEA,/ CEMO PT Active 11/25/2014 [facility] DEHYDRATION; HYPONATREMIA Acti ve 11/25/2014 [facility] UNKNOWN Active 10/25/2014 [facility] POOR PERIPHERAL VEINS FOR CHEMO/HYPERTEN Active 10/25/2014 [facility] INFLAMMATORY CA RIGHT BREAST 780.79 Active 10/19/2014 [facility] RIGHT BREAST MASS Active 10/04/2014 [facility] RIGHT BREAST PAIN AND SWELLING Active 10/01/2014 [facility] CONGESTION, DEHYTRATION, WEAKNESS Active 08/13/2014 [facility] SEVERE HYPONATREMIA Active 08/13/2014 [facility] DIVERTICULOSIS Active 01/12/2014 [facility] CAROTID STENOSIS Active 02/28/2013 [facility] HEADACHE, LIGHTHEADED Active 02/24/2013 [facility] PREVIOUS CYSTOTOMEY Active 04/20/2012 [facility] PREVIOUS CYTOMETY Active 04/20/2012 [facility] UTERINE PROLAPSE Active 04/11/2012 [facility] Arthritis of acromioclavicular joint (disorder) Active 01/01/2011 Problem 11/10/2019 Data migrated from [employer] on 02/11/15. Data migrated from [employer] on 02/11/15. [facility] Rotator cuff syndrome (disorder) Active 01/01/2011 Problem 11/10/2019 Data migrated from [employer] on . Data migrated from [employer] on 02/11/15. [facility] Shoulder joint inflamed (finding) Active 01/01/2011 Problem 11/10/2019 Data migrated from [employer] on . Data migrated from [employer] on 02/11/15. [facility] Sprain of foot (disorder) Acti ve 01/01/2011 Problem 11/10/2019 Data migrated from [employer] on . Data migrated from [employer] on 02/11/15. [facility] FEVER, NAUSEA Active 12/21/2009 [facility] FEVER, WEAKNESS,ON CHEMOTHERAPY Active 12/21/2009 [facility] COPD Active Problem 02/23/2020 [facility] Sinusitis, Chronic Active Problem 02/23/2020 [facility] Asthmatic Bronchitis, Unspecified Active Problem 08/2020 [facility] Asthma w/Acute Exacerbation Ac tive Diagnosis 0 02/23/2020 [facility] ASTHMA NOS Active Diagnosis 02/23/2020 [facility] Dyspnea Active Diagnosis 02/23/2020 [facility] Sinusitis, Acute, Unspecified Active Diagnosis 0 02/23/2020 [facility] Hyponatremia Active Diagnosis 02/23/2020 [facility] Asthma (disorder) Active Problem 11/10/2019 Data migrated from [employer] on . Data migrated from [employer] on 02/11/15. [facility], [facility] [place], [place], [facility] [place],[facility] Malignant tumor of breast (disorder) Active Problem right breast [facility], [facility] [place], [place],[facility] Antineoplastic chemotherapy regimen (procedure) Resolved Problem 11/10/2019 3 weeks ago got las t chemo [facility], [facility] [place], [place] [facility], [facility] Cholecystectomy (procedure) Ac tive Problem [facility], [facility] [place], [place],[facility] Chronic obstructive lung disease (disorder) Active Problem 11/10/2019 [facility], [facility] [place], [place], [facility] [place], [facility] Fixed suspension procedure of bladder neck (procedure) Active Problem 11/10/2019 [facility], [facility] [place], [place], [facility] Gastroesophageal reflux disease (disorder) Active Problem 11/10/2019 [facility], [facility] [place], [place], [facility] Hypertensive disorder, systemic arterial (disorder) Active Problem 11/10/2019 [facility], [facility] [place], [place], [facility] [place], [facility] Hyponatremia (disorder) Resolv ed Problem [facility], [facility] [place], [place], [facility] Hypothyroidism (disorder) Acti ve Problem [facility], [facility] [place], [place], [facility] Hysterectomy (procedure) Active Problem 11/10/2019 [facility], [facility] [place], [place], [facility] Osteoporosis (disorder) Active Problem 11/10/2019 [facility], [facility] [place], [place], [facility] Uterine prolapse (disorder) Ac tive Problem [facility], [facility] [place],[facility] Uterine prolapse Active Problem 03/03/2013 [facility] Malignant neoplasm of upper-inner quadra nt of right female breast 02/19/2019 [facility] Asthma Active Problem 03/03/2013 [facility] Chronic obstructive pulmonary disease Active Problem [facility] HTN - Hypertension Active Problem 03/03/2013 [facility] Appendectomy (procedure) Active Problem 12/27/2014 [facility] Final: Personal history of malignant neoplasm of breas t 01/10/2016 [facility] Final: Cardiomegaly 01/10/2016 [facility] Female urinary stress incontinence (finding) Active Problem 11/10/2019 [facility] Midline cystocele (disorder) A ctive Problem [facility] Vaginal enterocele (disorder) Active Problem [facility] Trochanteric bursitis, left hip 01/06/2019 [facility] Effusion, left hip 01/06/2019 [facility] Spinal stenosis, lumbar region without n eurogenic claudication 01/06/2019 [facility] Radiculopathy, lumbar region 01/06/2019 [facility] Other intervertebral disc degeneration, lumbar region 01/06/2019 [facility] Spondylolisthesis, lumbosacral region 01/06/2019 [facility] Spinal stenosis, lumbosacral region 01/06/2019 [facility] Other specified disorders of bone densit y and structure, left thigh 02/19/2019 [facility] Rotator Cuff Tendonitis Active 07/28/2013 [facility] ADMINISTRTVE ENCOUNT NOS Active [facility] OTHER Active [facility] OCL CRTD ART WO INFRCT Active [facility] HYPOSMOLALITY Active [facility] LUMP OR MASS IN BREAST Active [facility] NAUSEA WITH VOMITING Active [facility] MALAISE AND FATIGUE NEC Active [facility] FEVER NOS Active [facility] MALIGNANT NEOPLASM OF UNSP SITE OF UNSPE Active [facility] CHEST PAIN, UNSPECIFIED Active [facility] UNSPECIFIED LUMP IN BREAST Act [place] [facility] OTHER SHOULDER LESIONS, UNSPECIFIED SHOU Active [facility] OTHER DORSALGIA Active [facility] SECONDARY MALIGNANT NEOPLASM OF BREAST Active [facility] 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 [facility] HYPO-OSMOLALITY AND HYPONATREMIA Active [facility] CONSTIPATION, UNSPECIFIED Acti ve [facility] MALIGNANT NEOPLASM OF UNSP SITE OF RIGHT Active [facility] LOW BACK PAIN Active [facility] PNEUMONIA, UNSPECIFIED ORGANISM Active [facility] DYSPNEA, UNSPECIFIED Active [facility] CHRONIC OBSTRUCTIVE PULMONARY DISEASE W Active [facility] MALIG NEOPLM OF UPPER-INNER QUADRANT OF Active [facility] UNILATERAL PRIMARY OSTEOARTHRITIS, LEFT Active [facility] TROCHANTERIC BURSITIS, LEFT HIP Active [facility] AGE-RELATED OSTEOPOROSIS W/O CURRENT PAT Active [facility] MALIG NEOPLASM OF UPPER-OUTER QUADRANT O Active [facility] OTHER INTERVERTEBRAL DISC DEGENERATION, Active [facility] OTHER INTERVERTEBRAL DISC DEGENERATION, Active [facility] CYSTOCELE, MIDLINE Active [facility] STRESS INCONTINENCE (FEMALE) (MALE) Active [facility] MALIG NEOPLM OF UPPER-OUTER QUADRANT OF Active [facility] PERSONAL HISTORY OF MALIGNANT NEOPLASM O Active [facility] Medications Medication Details Route Status Patient Instructions Ordering Provider Order Date Source amoxicillin 500 mg oral capsule 500 mg = 1 cap, PO, TID, X 7 day, # 21 cap, 0 Refill(s), Pharmacy: [facility] #[id number] Active 07/14/2019 [facility] ciprofloxacin 500 mg oral tablet 500 mg = 1 tab, PO, Q12H, for UTI, X 5 day, # 10 tab, 0 Refill(s), Pharmacy: [facility] #[id number] Active 07/11/2019 [facility] 24 HR mirabegron 25 MG Extended Release Tablet [Myrbetriq] 25 mg = 1 tab, PO, Daily, # 30 tab, 11 R efill(s), Pharmacy: [facility] #[id number] Active 07/11/2019 [facility] Ondansetron 4 mg, Route: IVP, Drug form: INJ, ONCE, Dosing Weight 46.875, kg, Start date: 06/09/19 18:14:00 CDT, Stop date: 06/09/19 18:14:00 CDT Inactive 06/09/2019 [facility] Reglan 10 mg, Route: IVP, Drug form: INJ, ONCE, Dosing Weight 46.875, kg, PRN Nausea & Vomiting, Start date: 06/09/19 18:13:00 CDT Inactive 06/09/2019 [facility] 72 HR Scopolamine 0.0139 MG/HR Transdermal Patch Notes: Change patch every 72 hours (Same as: Transderm-Scop) Inactive 06/09/2019 [facility] Pepcid Notes: (Same as: Pepcid ) Can be dilute in 5-10cc NS IVP: Slow IV push over at least 2 minutes. Inactive 06/09/2019 [facility] Dexamethasone 8 mg, Route: IM, ONCE, Dosing Weight 46.875, kg, Start date: 06/09/19 16:40:00 CDT, Stop date: 06/09/19 16:40:00 CDT Inactive 06/09/2019 [facility] Cefuroxime 500 MG Oral Tablet [Ceftin] 500 mg = 1 tab, PO, BID, X 5 day, # 10 tab, 0 Refill(s), Pharmacy: [facility] #[id number] Active 06/09/2019 [facility] Calcium Chloride 0.0014 MEQ/ML / Potassi um Chloride 0.004 MEQ/ML / Sodium Chloride 0.103 MEQ/ML / Sodium Lactate 0.028 MEQ/ML Injectable Solution 1,000 mL, Rate: 125 ml/hr, Infuse over: 8 hr, Route: IV, Dosing Weight 46.875 kg, Total Volume: 1,000, Start date: 06/09/19 14:57:00 CDT, Duration: 30 day, Stop date: 07/09/19 14:56:00 CDT, 1.44, m2, 0 Inactive 06/09/2019 [facility] Labetalol 10 mg, 2 mL, Route: IVP, Drug form: INJ, Q5Min, Dosing Weight 46.875, kg, PRN Elevated BP, Start date: 06/09/19 14:57:00 CDT, Duration: 5 doses or times, Stop date: Limited # of times, 0 Inactive 06/09/2019 [facility] Acetaminophen Notes: Infuse ov er 15 minutes Do not exceed 4gm/day of acetaminophen MEDICATION WASTE Product Size: 1000 mg Product Wasted: ___ mg Inactive 06/09/2019 [facility] Fentanyl Notes: (Same as: Subl imaze) Preservative free. Inactive 06/09/2019 [facility] Hydromorphone Notes: Same as D ilaudid Inactive 06/09/2019 [facility] Flumazenil Notes: (Same as: Ro mazicon) Inactive 06/09/2019 [facility] Naloxone Notes: Same as Narcan Inactive 06/09/2019 [facility] Diphenhydramine Notes: (Same a s: Benadryl) Inactive 06/09/2019 [facility] Ondansetron Notes: (Same as: Susan roberts) MEDICATION WASTE Product Size: 4 mg Product Wasted: ___ mg Inactive 06/09/2019 [facility] acetaminophen (ANES) Route: IV , Drug form: INJ, ONCE, Stop date: 06/09/19 14:26:00 CDT Inactive 06/09/2019 [facility] glycopyrrolate (ANES) Route: I V, Drug form: INJ, ONCE, Stop date: 06/09/19 14:05:00 CDT Inactive 06/09/2019 [facility] fentaNYL (ANES) Route: IV, Horacio g form: INJ, ONCE, Stop date: 06/09/19 14:00:00 CDT Inactive 06/09/2019 [facility] lidocaine (ANES) Route: IV, Dr ug form: INJ, ONCE, Stop date: 06/09/19 13:45:00 CDT Inactive 06/09/2019 [facility] propofol (ANES) Route: IV, Horacio g form: INJ, ONCE, Stop date: 06/09/19 13:45:00 CDT Inactive 06/09/2019 [facility] ondansetron (ANES) Route: IV, Drug form: INJ, ONCE, Stop date: 06/09/19 13:45:00 CDT Inactive 06/09/2019 [facility] dexamethasone (ANES) Route: IV , Drug form: INJ, ONCE, Stop date: 06/09/19 13:45:00 CDT Inactive 06/09/2019 [facility] ePHEDrine (ANES) Route: IV, Dr ug form: INJ, ONCE, Stop date: 06/09/19 13:35:00 CDT Inactive 06/09/2019 [facility] ceFAZolin (ANES) Route: IV, Dr ug form: INJ, ONCE, Stop date: 06/09/19 13:30:00 CDT Inactive 06/09/2019 [facility] Lactated Ringers Injection IV (ANES) 1000 mL Route: IV, Total Volume: 1,000, Start date: 06/09/19 12:39:00 CDT, Stop date: 06/09/19 13:39:00 CDT Inactive 06/09/2019 [facility] taMOXifen 20 mg oral tablet 20 mg = 1 tab, PO, Daily, 0 Refill(s) Active 06/06/2019 [facility] Linda-C 1000 mg oral tablet 1, 000 mg = 1 tab, PO, Daily, 0 Refill(s) Active 06/06/2019 [facility] Probiotic Formula PO, Daily, 0 Refill(s) Inactive 06/06/2019 [facility] omeprazole 20 mg oral delayed release capsule 20 mg = 1 cap, PO, Daily, 0 Refill(s) Active 06/06/2019 [facility] Levalbuterol 0.21 MG/ML Inhalant Solution [Xopenex] 0.63 mg = 3 mL, NEB, TID, 0 Refill(s) Active 06/06/2019 [facility] Advair Diskus 500 mcg-50 mcg inhalation powder INHALATION, BID, 0 Refill(s) Active 06/06/2019 [facility] Ventolin HFA 90 mcg/inh inhalation aerosol with adapte r 2 puff, INHALER, Q4H, PRN wheezing, coughing, or shortness of breath, # 8 gm, 1 Refill(s) Active 06/06/2019 [facility] Ipratropium [place] 0.2 MG/ML Inhalant Solution 0.5 mg, NEB, Q6H, PRN wheezing, # 120 ea, 0 Refill(s) Active 07/23/2017 [facility] Ventolin HFA 90 mcg/inh inhalation aerosol with adapte r 180 microgram = 2 puff, INHALATION, QID, NEEDED, # 1 ea, 0 Refill(s) Active 07/23/2017 [facility] Ipratropium [place] 0.2 MG/ML Inhalant Solution 0.5 mg, NEB, Q6H, PRN wheezing, # 120 ea, 0 Refill(s), Pharmacy: [facility] [id number] Inactive 07/23/2017 [facility] multivitamin Notes: (Same as:O ne Tab Daily, Tab-A-Nadir + Beta Carotene) Give with food. Inactive 07/23/2017 [facility] valsartan Notes: Same as Emilie Inactive 07/23/2017 [facility] Lactobacillus acidophilus 1 ca p, Route: PO, Drug Form: CAP, Dosing Weight 49.545, kg, Daily, Start date: 07/23/17 9:00:00 [employer] OFFBEARER, Duration: 30 day, Stop date: 08/21/17 9:00:00 [employer] OFFBEARER No Longer Active 07/23/2017 [facility] methylPREDNISolone SODium SUCCinate Notes: (Same as:Solu-MEDROL, A-Methapred) Inactive 07/23/2017 [facility] lactobacillus rhamnosus GG Not es: Same as Culturelle Inactive 07/23/2017 [facility] Vitamin C Notes: (Same as: Vit elam C) Inactive 07/23/2017 [facility] Thyroxine Notes: Take 1 hour b efore or 2 hours after meal; Enteral feeds may interefere with the absorption of this medication. (Same as:Synthroid, Levothroid) Inactive 07/23/2017 [facility] gabapentin 300 MG Oral Capsule Notes: (Same as: Neurontin) No Longer Active 07/23/2017 [facility] valsartan Notes: Same as Misti n ----order reentered-- Inactive 07/23/2017 [facility] valsartan Notes: Same as Misti n ----MD asked us to DC VAlsartan 80mg BID order Inactive 07/22/2017 [facility] Docusate Sodium 100 MG Oral Capsule [Colace] Notes: (Same as: Colace) (Do Not Crush) No Longer Active 07/22/2017 [facility] Citracal + D 315 mg-250 intl units oral tablet Notes: Non-Formulary Medication (Same As: Citracal Caplets Plus D) No Longer Active 07/22/2017 [facility] anastrozole Notes: (Same as: A rimidex) Chemotherapy agent/Handle with caution WASTE: F/P - Black; E - Yellow No Longer Active 07/22/2017 [facility] Amlodipine Notes: (Same as: No rvasc) Inactive 07/22/2017 [facility] albuterol Notes: SEE RT DOCUME NTATION (Same as: Proventil) No Longer Active 07/22/2017 [facility] Sodium Chloride 0.111 MEQ/ML Nasal Solut ion [[place] Saline Nasal] Notes: (Same as: [place], Deep Sea Nasal [place]). No Longer Active 07/22/2017 [facility] Xopenex 0.63 mg, 3 mL, Route: NEB, Drug form: SOLN, Q8H, Dosing Weight 49.545, kg, PRN Wheezing, Start date: 07/22/17 10:22:00 PERFECT B[employer]ER FEEDER OFFBEARER, Duration: 30 day, Stop date: 08/21/17 10:21:00 [employer] OFFBEARER Inactive 07/22/2017 [facility] Lactulose 667 MG/ML Oral Solution Notes: (Same as:Chronulac) No Longer Active 07/22/2017 [facility] Fluticasone propionate 0.05 MG/ACTUAT Me tered Dose Nasal [place] Notes: (Same as: Flonase) No Longer Active 07/22/2017 [facility] Azelastine hydrochloride 0.137 MG/ACTUAT Metered Dose Nasal [place] [Astelin] Notes: (azelastine 137 microgram/inh 34 ml nasal SPR) Non- formulary drug. Same As: Astelin) No Longer Active 07/22/2017 [facility] tiotropium 0.018 MG/ACTUAT Inhalant Powder [Spiriva] Notes: (Same As: Spiriva) No Longer Active 07/22/2017 [facility] Advair Diskus 500 mcg-50 mcg inhalation powder Notes: Non-Formulary Drug (Same as: Advair) No Longer Active 07/22/2017 [facility] Simvastatin Notes: (Same as: Z ocor) No Longer Active 07/22/2017 [facility] Protonix Notes: Tablet should not be chewed or crushed. (Same as: Protonix) No Longer Active 07/22/2017 [facility] Azithromycin Notes: (Same As: Zithromax IV) No Longer Active 07/22/2017 [facility] cefTRIAXone + water for INJection, sterile 10 mL Notes: (Same As: Rocephin). Use with 100 mL NS and infuse over 30 min MEDICATION WASTE Product Size: 1000 mg Product Wasted: ___ mg No Longer Active 07/21/2017 [facility] sodium chloride 0.9% 1000 ml INJ 1,000 mL 1,000 mL, Rate: 50 ml/hr, Infuse over: 20 hr, Route: IV, Dosing Weight 49.545 kg, Total Volume: 1,000, Start date: 07/21/17 13:44:00 PERFECT B[employer] FE[employer]ER OFFBEARER, Duration: 30 day, Stop date: 08/20/17 13:43:00 [employer] OFFBEARER No Longe r Active 07/21/2017 [facility] levofloxacin 500 mg oral tablet 500 mg = 1 tab, PO, Daily, # 7 tab, 0 Refill(s) Active 07/21/2017 [facility] predniSONE 10 mg oral tablet 1 0 mg = 1 tab, PO, Daily, take 3 tab daily x3, 2 tab daily x2, 1 tab daily x2, then dc., 0 Refill(s) Active 07/21/2017 [facility] anastrozole 1 mg oral tablet 1 mg = 1 tab, PO, Daily, # 30 tab, 0 Refill(s) Active 07/21/2017 [facility] valsartan 320 mg oral tablet 3 20 mg = 1 tab, PO, Daily, # 30 tab, 0 Refill(s) Active 07/21/2017 [facility] omeprazole 20 mg oral delayed release capsule 20 mg = 1 cap, PO, Daily, # 30 cap, 0 Refill(s) Active 07/21/2017 [facility] Sodium Chloride 0.111 MEQ/ML Nasal Solut ion [[place] Saline Nasal] 2 drp, NASAL, PRN, 0 Refill(s) Active 07/21/2017 [facility] Promethazine Hydrochloride 25 MG Oral Tablet 25 mg = 1 tab, PO, Q4H, PRN Nausea/Vomiting, # 15 tab, 0 Refill(s) Active 07/21/2017 [facility] Azelastine hydrochloride 0.137 MG/ACTUAT Metered Dose Nasal [place] [Astelin] 2 spray, NASAL, PRN, 0 Refill(s) Active 07/21/2017 [facility] gabapentin 300 MG Oral Capsule 300 mg = 1 cap, PO, Bedtime, 0 Refill(s) Active 07/21/2017 [facility] valsartan Notes: Same as Diovan No Longer Active 07/21/2017 [facility] Enoxaparin Notes: (Same as: Lo venox) No Longer Active 07/21/2017 [facility] methylPREDNISolone SODium SUCCinate Notes: (Same as:Solu-MEDROL, A-Methapred) N o Longer Active 07/21/2017 [facility] Xopenex Notes: SEE RT DOCUMENT ATION (Same as:Xopenex) Non-Formulary No Longer Active 07/21/2017 [facility] albuterol Notes: SEE RT DOCUME NTATION (Same as: Proventil) Inactive 07/21/2017 [facility] Trazodone Notes: (Same As: Shree yrel) No Longer Active 07/21/2017 [facility] Codeine Phosphate 2 MG/ML / Guaifenesin 20 MG/ML Oral Solution Notes: (Same As: Robitussin AC) No Longer Active 07/21/2017 [facility] Diphenhydramine Notes: (Same a s: Benadryl) No Longer Active 07/21/2017 [facility] Acetaminophen Notes: Do not ex ceed 4 gm/day. (Same as: Tylenol) No Longer Active 07/21/2017 [facility] Milk of Magnesia Notes: (Same as: Milk of Magnesia, MOM) No Longer Active 07/21/2017 [facility] potassium phosphate Notes: ([facility] as: K Phosphate.) 1 mMol phoshate has 1.47 mEq potassium Infuse over 4 hours No Longer Active 07/21/2017 [facility] Magnesium Sulfate Notes: WASTE : F/P - Sink; E - Municipal Trash Bin No Longer Active 07/21/2017 [facility] sodium phosphate 30 mmol, 10 m L, Route: IVPB, PRN, Dosing Weight 49.545, kg, PRN Abnormal Lab Result, For NON-ICU Patients Only., Start date: 07/20/17 19:44:00 [employer]ARER, Duration: 30 day, Stop date: 08/19/17 19:43:00 [employer] OFFBEARER No Longer Active 07/21/2017 [facility] Magnesium Oxide Notes: (Same a s: Mag-Ox 400) Magnesium oxide [id number] elemental magnesium Dose=____mg magnesium oxide (___mg elemental magnesium) No Longer Active 07/21/2017 [facility] Calcium Gluconate Notes: WASTE : F/P - Sink; E - Municipal Trash Bin No Longer Active 07/21/2017 [facility] Potassium Chloride Notes: ([facility] e as: K-Dur 20) "Do Not Crush" With food and full glass of water No Longer Active 07/21/2017 [facility] potassium phosphate-sodium phosphate 250 mg-280 mg-160 mg oral powder for reconstitution Notes: (Same as: Phos-NaK) Each 1.5 gm pkt has 250mg phosphorous. Mix w/2.5oz water and stir. No Longer Active 07/21/2017 [facility] Hydralazine Notes: (Same as: A presoline) Push over 5 minutes No Longer Active 07/21/2017 [facility] Benadryl 25 mg, Route: IVP, ON CE, Dosing Weight 49.545, kg, PRN Itching, Start date: 07/20/17 19:24:00 [employer] OFFBEARER Inactive 07/21/2017 [facility] Enoxaparin 30 mg, Route: SUB-Q , Drug form: INJ, [id number], Dosing Weight 49.545, kg, Start date: 07/20/17 19:00:00 [employer] OFFBEARER, Duration: 30 day, Stop date: 08/19/17 7:00:00 [employer] OFFBEARER Inactive 07/21/2017 [facility] Xopenex 0.63 mg, Route: INHALA TION, [id number], Dosing Weight 49.545, kg, Start date: 07/20/17 19:00:00 [employer] OFFBEARER, Duration: 30 day, Stop date: 08/19/17 13:00:00 [employer] OFFBEARER Inactive 07/21/2017 [facility] Ceftriaxone 1 gm, Route: IVPB, [id number], Dosing Weight 49.545, kg, Start date: 07/20/17 19:00:00 [employer] OFFBEARER, Duration: 5 day, Stop date: 07/24/17 19:00:00 [employer] OFFBEARER, ABX Indication: Non-PNA Respiratory Tract Infection Inactive 07/21/2017 [facility] Morphine Notes: (Same as:MORPh ine Sulfate) No Longer Active 07/21/2017 [facility] Ondansetron Notes: (Same as: Susan roberts) MEDICATION WASTE Product Size: 4 mg Product Wasted: ___ mg No Longer Active 07/21/2017 [facility] Acetaminophen Notes: Do not ex ceed 4 gm/day. (Same as: Tylenol) No Longer Active 07/21/2017 [facility] Ipratropium [place] 0.2 MG/ML Inhalant Solution Notes: SEE RT DOCUMENTATION (Same as:Atrovent) No Longer Active 07/21/2017 [facility] Saline Flush 0.9% Notes: Same as: BD Posiflush Sterile No Longer Active 07/21/2017 [facility] Benadryl Notes: (Same as: Kamiah dryl) No Longer Active 07/21/2017 [facility] Symbicort 160/4.5 inhalation aerosol with adapter Notes: (Same as: Symbicort) WASTE: Aerosol - Return to Pharmacy No Longer Active 07/21/2017 [facility] sodium chloride 0.9% 1000 ml INJ 1,000 mL 1,000 mL, Rate: 100 ml/hr, Infuse over: 10 hr, Route: IV, Dosing Weight 49.545 kg, Total Volume: 1,000, Start date: 07/20/17 17:22:00 [employer]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 Use with 100 mL NS and infuse over 30 min MEDICATION WASTE Product Size: 1000 mg Product Wasted: ___ mg Inactive 07/20/2017 [facility] Azithromycin Notes: (Same As: Zithromax IV) Inactive 07/20/2017 [facility] Rocephin 1 gm, Route: IVPB, Dr garnica form: PDR/INJ, ONCE, Dosing Weight 49.545, kg, Priority: STAT, Start date: 07/20/17 14:32:00 [employer] OFFBEARER, Duration: 1 doses or times, Stop date: 07/20/17 14:32:00 [employer] OFFBEARER, ABX Indication: Pneumonia Inactive 07/20/2017 [facility] Albuterol 0.833 MG/ML / Ipratropium Brom enid 0.167 MG/ML Inhalant Solution Notes: (Same as: Duoneb) Inactive 07/20/2017 [facility] Saline Flush 0.9% Notes: Same as: BD Posiflush Sterile No Longer Active 07/20/2017 [facility] demeclocycline 150 mg oral tablet 300 mg = 2 tab, PO, BID, X 15 day, # 60 tab, 0 Refill(s) Active 10/16/2016 [facility] Miralax 17 gm, Route: PO, Carol y, Dosing Weight 46.364, kg, Start date: 10/16/16 9:00:00 [employer] OFFBEARER, Duration: 30 day, Stop date: 11/14/16 9:00:00 [employer] OFFBEARER No Longer Active 10/16/2016 [facility] Thyroxine Notes: Take 1 hour b efore or 2 hours after meal; Enteral feeds may interefere with the absorption of this medication. (Same as:Synthroid, Levothroid) Inactive 10/16/2016 [facility] Zocor Notes: (Same as: Zocor) No Longer Active 10/16/2016 [facility] pantoprazole Notes: Tablet josie uld not be chewed or crushed. (Same as: Protonix) N o Longer Active 10/15/2016 [facility] Demeclocycline Notes: (Same As : Declomycin) No Longer Active 10/15/2016 [facility] Lactulose 667 MG/ML Oral Solution Notes: (Same as:Chronulac) Inactive 10/15/2016 [facility] Lactulose 667 MG/ML Oral Solution Notes: (Same as:Chronulac) No Longer Active 10/15/2016 [facility] Acetaminophen 325 MG / Hydrocodone Chay trate 5 MG Oral Tablet [[place] 5/325] Notes: (Same as: [place] 325/5) Do not ex ceed 4gm/day of acetaminophen. No Longer Activ e 10/15/2016 [facility] tiotropium 0.018 MG/ACTUAT Inhalant Powder [Spiriva] Notes: (Same As: Spiriva) No Longer Active 10/15/2016 [facility] omega-3 polyunsaturated fatty acids Notes: (Same as: MaxEPA, [place] 3 fish oil ) Non-Formulary Drug No Longer Active 10/15/2016 [facility] Megestrol Acetate 40 MG/ML Oral Suspension Notes: WASTE: F/P - Black; E - Yellow No Longer Active 10/15/2016 [facility] Losartan Notes: (Same as: Rox wells) No Longer Active 10/15/2016 [facility] Docusate Sodium 100 MG Oral Capsule [Colace] Notes: (Same as: Colace) (Do Not Crush) No Longer Active 10/15/2016 [facility] Miralax Notes: Dissolve in 8 o z of water or juice. (Same as: Miralax) No Longer Active 10/15/2016 [facility] calcium-vitamin D 315 mg-200 intl units oral tablet Notes: (Same As: Citracal Caplets Plus D) No Longer Active 10/15/2016 [facility] Advair Diskus 500 mcg-50 mcg inhalation powder 1 puff, Route: INHALATION, Drug Form: AERO, Dosing Weight 46.364, kg, BID, Start date: 10/15/16 9:00:00 [employer] OFFBEARER, Duration: 30 day, Stop date: 11/13/16 17:00:00 [employer] OFFBEARER No Longer Active 10/15/2016 [facility] Osteo Bi-Flex 1 tab, Route: PO , Dosing Weight 46.364, kg, Daily, Start date: 10/15/16 9:00:00 [employer] OFFBEARER, Duration: 30 day, Stop date: 11/13/16 9:00:00 PERF[employer] OFFBEARER No Longer Active 10/15/2016 [facility] calcium-vitamin D 600 mg-200 units oral tablet 1 tab, Route: PO, Drug Form: TAB, Dosing Weight 46.364, kg, Daily, Start date: 10/15/16 9:00:00 PERFECT [employer]ER OFFBEARER, Duration: 30 day, Stop date: 11/13/16 9:00:00 PER[employer]ECT [employer]ER OFFBEARER Inactive 10/15/2016 [facility] Budesonide 0.25 MG/ML Inhalant Solution [Pulmicort] Notes: (Same As: Pulmicort) No Longer Active 10/15/2016 [facility] Vitamin C Notes: (Same as: Vit elam C) No Longer Active 10/15/2016 [facility] Amlodipine Notes: (Same as: No rvasc) No Longer Active 10/15/2016 [facility] anastrozole Notes: (Same as: A rimidex) Chemotherapy agent/Handle with caution WASTE: F/P - Black; E - Yellow No Longer Active 10/15/2016 [facility] albuterol Notes: SEE RT DOCUME NTATION (Same as: Proventil) No Longer Active 10/15/2016 [facility] Ventolin HFA 90 mcg/inh inhalation aerosol with adapte r Notes: Albuterol 90 microgram/inh 8gm HFA WASTE: Aerosol - Return to Pharmacy Same as: Ventjess, Proventil N o Longer Active 10/15/2016 [facility] Enoxaparin Notes: (Same as: Lo venox) No Longer Active 10/15/2016 [facility] Fleet Enema 133 mL, Route: CT, Drug Form: GAVIN, Dosing Weight 46.364, kg, ONCE, Start date: 10/15/16 7:15:00 PERFECT [employer] OFFBEARER, Stop date: 10/15/16 7:15:00 PERFECT [employer]ER OFFBEARER Inactive 10/15/2016 [facility] Zofran Notes: (Same as: Zofran) No Longer Active 10/15/2016 [facility] Xopenex 0.63 mg, 3 mL, Route: NEB, Drug form: SOLN, Q8H, Dosing Weight 46.364, kg, PRN Wheezing, Start date: 10/15/16 7:03:00 PERFECT [employer] OFFBEARER, Duration: 30 day, Stop date: 11/14/16 7:02:00 PERFECT B[employer] FE[employer]ER OFFBEARER Inactive 10/15/2016 [facility] Lactulose 667 MG/ML Oral Solution Notes: (Same as:Chronulac) Inactive 10/15/2016 [facility] Sodium Chloride 1,000 mg =, PO , BID, 0 Refill(s) Active 10/15/2016 [facility] anastrozole 2 mg, PO, Daily, 0 Refill(s) Active 10/15/2016 [facility] Amlodipine 10 mg, PO, Daily, 0 Refill(s) Active 10/15/2016 [facility] losartan 100 mg oral tablet 10 0 mg = 1 tab, PO, Daily, # 30 tab, 0 Refill(s) Active 10/15/2016 [facility] Furosemide 20 MG Oral Tablet 2 0 mg = 1 tab, PO, Daily, # 30 tab, 0 Refill(s) No Longer Active 10/15/2016 [facility] Sodium Chloride 0.154 MEQ/ML Injectable Solution 1,000 mL, Rate: 60 ml/hr, Infuse over: 16.7 hr, Route: IV, Dosing Weight 47.273 kg, Total Volume: 1,000, Start date: 10/14/16 22:05:00 PERFECT B[employer]ER OFFBEARER, Duration: 30 day, Stop date: 11/13/16 22:04:00 PERFECT B[employer] FE[employer]ER OFFBEARER No Longer Active 10/15/2016 [facility] Sodium Chloride 0.154 MEQ/ML Injectable Solution 1,000 mL, Rate: 125 ml/hr, Infuse over: 8 hr, Route: IV, Dosing Weight 47.273 kg, Total Volume: 1,000, Start date: 10/14/16 21:40:00 PERFECT B[employer] FEEDER OFFBEARER, Duration: 30 day, Stop date: 11/13/16 21:39:00 PERFECT B[employer] FE[employer]ER OFFBEARER Inactive 10/15/2016 [facility] Saline Flush 0.9% Notes: Same as: BD Posiflush Sterile No Longer Active 10/15/2016 [facility] Ondansetron Notes: (Same as: Susan roberts) MEDICATION WASTE Product Size: 4 mg Product Wasted: ___ mg No Longer Active 10/15/2016 [facility] Morphine Notes: (Same as:MORPh ine Sulfate) No Longer Active 10/15/2016 [facility] Omnipaque 300 Notes: (Same as: Omnipaque 300). WASTE: F/P - Black; E - Municipal Trash Bin No Longer Active 10/15/2016 [facility] sodium chloride 0.9% 1000 ml INJ 1,000 mL 1,000 mL, Rate: 1,000 ml/hr, Infuse over: 1 hr, Route: IV, Dosing Weight 47.273 kg, Total Volume: 1,000, Priority: STAT, Start date: 10/14/16 18:31:00 PERFECT [employer] OFFBEARER, Duration: 1 doses or times, Stop date: 10/14/16 19:30:00 PERFECT B[employer] FE[employer]ER OFFBEARER Inactive 10/15/2016 [facility] Zofran Notes: (Same as: Calixto ) MEDICATION WASTE Product Size: 4 mg Product Wasted: ___ mg Inactive 10/14/2016 [facility] Morphine Notes: (Same as:MORPh ine Sulfate) Inactive 10/14/2016 [facility] sodium chloride 0.9% 1000 ml INJ 1,000 mL 1,000 mL, Rate: 1,000 ml/hr, Infuse over: 1 hr, Route: IV, Dosing Weight 47.273 kg, Total Volume: 1,000, Priority: STAT, Start date: 10/14/16 15:55:00 PERFECT [employer]ER OFFBEARER, Duration: 1 doses or times, Stop date: 10/14/16 16:54:00 PERFECT B[employer]ER FE[employer]ER OFFBEARER Inactive 10/14/2016 [facility] Saline Flush 0.9% Notes: Same as: BD Posiflush Sterile No Longer Active 10/14/2016 [facility] Ondansetron Notes: (Same as: Susan roberts) MEDICATION WASTE Product Size: 4 mg Product Wasted: ___ mg Inactive 10/14/2016 [facility] 12 HR Orphenadrine Citrate 100 MG Extend ed Release Tablet 100 mg = 1 tab, PO, BID, X 10 day, # 20 tab, 0 Refill(s), Pharmacy: [facility] #[id number] Active 01/11/2016 [facility] Saline Flush 0.9% Notes: Same as: BD Posiflush Sterile Inactive 01/11/2016 [facility] Morphine Notes: (Same as:MORPh ine Sulfate) Inactive 01/11/2016 [facility] Orphenadrine 60 mg, 2 mL, Rout e: IVP, Drug form: INJ, ONCE, Dosing Weight 51.818, kg, Priority: STAT, Start date: 01/11/16 10:42:00 CDT, Stop date: 01/11/16 10:42:00 CDT Inactive 01/11/2016 [facility] Ketorolac 4 days MEDICA TION WASTE Product Size: 30 mg Product Wasted: ___ mg Inactive 01/11/2016 [facility] Omnipaque 300 Notes: (Same as: Omnipaque 300). WASTE: F/P - Black; E - Municipal Trash Bin Active 01/07/2016 [facility] Sodium Chloride 1000 MG Oral Tablet 2 gm, 2 tab, Route: PO, Drug form: TAB, TID, Dosing Weight 52.006, kg, Start date: 01/30/15 17:00:00, Duration: 30 day, Stop date: 03/01/15 13:00:00 Inactive 01/30/2015 [facility] Xopenex Notes: SEE RT DOCUMENT ATION (Same as:Xopenex) Non-Formulary Inactive 01/30/2015 [facility] colistimethate Special Instruc tions: 7 days Active 01/30/2015 [facility] Budesonide 0.25 MG/ML Inhalant Solution [Pulmicort] 0.5 mg = 2 mL, NEB, BID, 0 Refill(s) Active 01/30/2015 [facility] predniSONE 20 mg oral tablet S pecial Instructions: 16 day regimen: Days 1-4 - 40 mg (2 tabs) daily Days 5-8 - 30 mg (1 1/2 tabs) daily Days 9-12 - 20 mg (1 tab) daily Day 13-16 - 10 mg (1/2 tab) daily Active 01/30/2015 [facility] Sodium Chloride 1000 MG Oral Tablet 3 gm = 3 tab, PO, ABXQ8H, # 270 tab, 2 Refill(s) Inactive 01/30/2015 [facility] pantoprazole 40 mg oral enteric coated tablet 40 mg = 1 tab, PO, Before Breakfast, 0 Refill(s) Active 01/30/2015 [facility] Megestrol Acetate 40 MG/ML Oral Suspension 400 mg = 10 mL, PO, BID, 0 Refill(s) Activ e 01/30/2015 [facility] Docusate Sodium 100 MG Oral Capsule [Colace] 100 mg = 1 cap, PO, BID, 0 Refill(s) Active 01/30/2015 [facility] Lactulose 667 MG/ML Oral Solution 20 gm = 30 mL, PO, Q8H, PRN Constipation, 0 Refill(s) Active 01/30/2015 [facility] Enoxaparin 40 mg = 0.4 mL, SUB -Q, [id number], 0 Refill(s) Active 01/30/2015 [facility] Prednisone Notes: Take with fo od. Inactive 01/30/2015 [facility] Dulcolax Laxative Notes: (Same As: Dulcolax, Correctol) (Do Not Crush) "Do Not Crush" No Longer Active 01/30/2015 [facility] heparin flush Notes: (Same as: Heparin Lock Flush) Inactive 01/29/2015 [facility] Protonix Notes: Tablet should not be chewed or crushed. (Same as: Protonix) No Longer Active 01/29/2015 [facility] Sodium Chloride 1000 MG Oral Tablet 3 gm, 3 tab, Route: PO, Drug form: TAB, [id number], Dosing Weight 52.006, kg, Start date: 01/29/15 10:00:00, Duration: 30 day, Stop date: 02/28/15 2:00:00 No Longer Active 01/29/2015 [facility] methylPREDNISolone SODium SUCCinate Notes: (Same as:Solu-MEDROL, A-Methapred) Inactive 01/29/2015 [facility] Lactulose Notes: (Same as:[employer] nulac) No Longer Active 01/28/2015 [facility] D5W 1,000 mL 1,000 mL, Rate: 2 0 ml/hr, Infuse over: 50 hr, Route: IV, Dosing Weight 52.006 kg, Total Volume: 1,000, Start date: 01/27/15 8:12:00, Duration: 30 day, Stop date: 02/26/15 8:11:00 No Longer Active 01/27/2015 [facility] Dextrose 50% Syringe 12.5 gm, 25 mL, Route: IVP, Drug Form: INJ, Dosing Weight 52.006, kg, PRN, PRN Blood Glucose Results, Start date: 01/26/15 18:22:00, Duration: 30 day, Stop date: 02/25/15 18:21:00 No Longer Active 01/26/2015 [facility] Glucagon 1 mg, Route: IM, Drug form: PDR/INJ, PRN, Dosing Weight 52.006, kg, PRN Blood Glucose Results, Start date: 01/26/15 18:22:00, Duration: 30 day, Stop date: 02/25/15 18:21:00 No Longer Active 01/26/2015 [facility] Insulin, Aspart, Human Notes: Roll in palms of hands gently; Do not shake vigorously. (Same as: NovoLOG) "single patient use only" Stable for 28 days at room temperature. Expires in days from Date No Longer Active 01/26/2015 [facility] Docusate Sodium 100 MG Oral Capsule [Colace] Notes: (Same as: Colace) (Do Not Crush) No Longer Active 01/26/2015 [facility] Vancomycin 1 gm, 200 mL, Route : IVPB, Drug form: INJ, [id number], Dosing Weight 51.364, kg, Start date: 01/26/15 17:00:00, Duration: 30 day, Stop date: 02/24/15 17:00:00 No Longer Active 01/26/2015 [facility] Megace 400 mg, 10 mL, Route: P O, Drug form: SUSP, BID, Dosing Weight 52.006, kg, Start date: 01/26/15 11:00:00, Duration: 30 day, Stop date: 02/25/15 9:00:00 No Longer Active 01/26/2015 [facility] normal saline 0.9% IV 1,000 mL 1,000 mL, Rate: 50 ml/hr, Infuse over: 20 hr, Route: IV, Dosing Weight 52.006 kg, Total Volume: 1,000, Start date: 01/26/15 10:12:00, Duration: 30 day, Stop date: 02/25/15 10:11:00 No Longer Active 01/26/2015 [facility] potassium chloride Notes: (Rangel e as: K-Dur 20) "Do Not Crush" With food and full glass of water No Longer Active 01/26/2015 [facility] Magnesium Oxide Notes: (Same a s: Mag-Ox 400) Magnesium oxide [id number] elemental magnesium Dose=____mg magnesium oxide (___mg elemental magnesium) No Longer Active 01/26/2015 [facility] Calcium Gluconate Special Inst ructions: FOR ICU USE ONLY No Longer Active 01/26/2015 [facility] Magnesium Sulfate Special Inst ructions: FOR ICU USE ONLY No Longer Active 01/26/2015 [facility] potassium phosphate + Sodium Chloride 0.9% IV 250 mL Notes: (Same as: K Phosphate.) 1 mMol phoshate has 1.47 mEq potassium Infuse over 4 hours No Longer Active 01/26/2015 [facility] Neutra-Phos Notes: (Same as: N eutra-Phos) Each 1.25 gm pkt has 250mg phosphorous. Mix w/2.5oz water and stir. No Longer Active 01/26/2015 [facility] sodium phosphate + Sodium Chloride 0.9% IV 250 mL Special Instructions: FOR ICU USE ONLY No Longer Active 01/26/2015 [facility] Calcium Carbonate 500 MG Chewable Tablet Notes: (Same As: Tums) Calcium Carbonate 500 mg = 200 mg elemental calcium Dose = mg calcium carbonate ( mg elemental calcium) No Longer Active 01/26/2015 [facility] Albuterol 0.833 MG/ML / Ipratropium Brom enid 0.167 MG/ML Inhalant Solution [DuoNeb] Notes: (Same as: Duoneb) Inactive 01/26/2015 [facility] Demeclocycline Notes: (Same As : Declomycin) No Longer Active 01/26/2015 [facility] Albuterol 0.833 MG/ML / Ipratropium Brom enid 0.167 MG/ML Inhalant Solution [DuoNeb] Notes: (Same as: Duoneb) No Longer Active 01/25/2015 [facility] Sodium Chloride 3% IV 500 mL N otes: "Administer by central venous catheter or a peripherally inserted central catheter (PICC) line. 3% Sodium Chloride may be infused via peripheral administration into large vein (antecubital) only in the case of emergency for short term use until a central line can be inserted" (Same as: Hypertonic Saline 3%) No Longer Active 01/25/2015 [facility] methylPREDNISolone SODium SUCCinate Notes: (Same as:Solu-MEDROL, A-Methapred) N o Longer Active 01/25/2015 [facility] tolvaptan Notes: Same as: [place] ca No Longer Active 01/25/2015 [facility] Acetaminophen 325 MG / Hydrocodone Chay trate 5 MG Oral Tablet [[place] 5/325] Notes: (Same as: [place] 325/5) Do not ex ceed 4gm/day of acetaminophen. No Longer Activ e 01/25/2015 [facility] methylPREDNISolone SODium SUCCinate Notes: (Same as:Solu-MEDROL, A-Methapred) Inactive 01/25/2015 [facility] Diovan Notes: Same as Diovan No Longer Active 01/25/2015 [facility] tiotropium 0.018 MG/ACTUAT Inhalant Powder [Spiriva] Notes: (Same As: Spiriva) No Longer Active 01/25/2015 [facility] Budesonide 0.25 MG/ML Inhalant Solution [Pulmicort] Notes: (Same As: Pulmicort) No Longer Active 01/25/2015 [facility] Thyroxine Notes: Take 1 hour b efore or 2 hours after meal; Enteral feeds may interefere with the absorption of this medication. (Same as:Synthroid, Levothroid) No Longer Active 01/25/2015 [facility] Pulmicort Respules Notes: ([facility] e As: Pulmicort) Inactive 01/25/2015 [facility] DuoNeb inhalation solution Not es: (Same as: Duoneb) No Longer Active 01/25/2015 [facility] DuoNeb inhalation solution Not es: (Same as: Duoneb) Inactive 01/25/2015 [facility] Pulmicort Respules Notes: ([facility] e As: Pulmicort) Inactive 01/25/2015 [facility] Acetaminophen 325 MG / Hydrocodone Chay trate 5 MG Oral Tablet [[place] 5/325] Notes: (Same as: [place] 325/5) Do not ex ceed 4gm/day of acetaminophen. Inactive 01/25/2015 [facility] Omnipaque 350 Notes: (same as: Omnipaque 350). Inactive 01/25/2015 [facility] meropenem Notes: Same as Rahsaad ojeda MEDICATION WASTE Product Size: 500 mg Product Wasted: ___ mg No Longer Active 01/25/2015 [facility] cefepime Notes: (Same As: Mc centeno) MEDICATION WASTE Product Size: 1000 mg Product Wasted: ___ mg No Longer Active 01/25/2015 [facility] Levofloxacin 750 mg, Route: IV PB, Drug form: SOLN, [id number], Dosing Weight 51.364, kg, Start date: 01/24/15 22:00:00, Duration: 30 day, Stop date: 02/22/15 22:00:00 Inactive 01/25/2015 [facility] Vancomycin 1 gm, Route: IVPB, Drug form: INJ, [id number], Dosing Weight 51.364, kg, Start date: 01/24/15 22:00:00, Duration: 30 day, Stop date: 02/22/15 22:00:00 Inactive 01/25/2015 [facility] Ondansetron Notes: (Same as: Susan roberts) MEDICATION WASTE Product Size: 4 mg Product Wasted: ___ mg No Longer Active 01/25/2015 [facility] Acetaminophen Notes: Do not ex ceed 4 gm/day. (Same as: Tylenol) No Longer Active 01/25/2015 [facility] Morphine Notes: (Same as:MORPh ine Sulfate) No Longer Active 01/25/2015 [facility] colistimethate Notes: (Same As : Coly-Mycin) No Longer Active 01/25/2015 [facility] Enoxaparin Notes: (Same as: Lo venox) No Longer Active 01/25/2015 [facility] Pepcid Notes: (Same as: Pepcid ) Can be dilute in 5-10cc NS IVP: Slow IV push over at least 2 minutes. No Longer Active 01/25/2015 [facility] Zocor Notes: (Same as: Zocor) No Longer Active 01/25/2015 [facility] Levaquin Notes: (Same as:Levaq uin) No Longer Active 01/25/2015 [facility] Zofran Notes: (Same as: Zofran ) MEDICATION WASTE Product Size: 4 mg Product Wasted: ___ mg No Longer Active 01/25/2015 [facility] 200 ACTUAT Azelastine hydrochloride 0.13 7 MG/ACTUAT Nasal Inhaler [Astelin] Notes: (azelastine 137 microgram/inh 34 ml nasal SPR) Non- formulary drug. Same As: Astelin) No Longer Active 01/25/2015 [facility] NS 1,000 mL 1,000 mL, Rate: 75 ml/hr, Infuse over: 13.3 hr, Route: IV, Dosing Weight 51.364 kg, Total Volume: 1,000, Start date: 01/24/15 20:28:00, Duration: 30 day, Stop date: 02/23/15 20:27:00 No Longer Active 01/25/2015 [facility] Sodium Chloride 3% (Hypertonic) IV 180 mL Notes: "Administer by central venous catheter or a peripherally inserted central catheter (PICC) line. 3% Sodium Chloride may be infused via peripheral administration into large vein (antecubital) only in the case of emergency for short term use until a central line can be inserted" (Same as: Hypertonic Saline 3%) Inactive 01/25/2015 [facility] Saline Flush 0.9% Notes: Same as: BD Posiflush Sterile No Longer Active 01/24/2015 [facility] demeclocycline 300 mg oral tablet 300 mg = 1 tab, PO, BID, X 14 day, # 28 tab, 0 Refill(s) Active 01/19/2015 [facility] [facility] Demeclocycline Notes: (Same As : Declomycin) No Longer Active 01/17/2015 [facility] NS 1,000 mL 1,000 mL, Rate: 40 ml/hr, Infuse over: 25 hr, Route: IV, Dosing Weight 51.932 kg, Total Volume: 1,000, Start date: 01/17/15 10:16:00, Duration: 30 day, Stop date: 02/16/15 10:15:00 No Longer Active 01/17/2015 [facility] tiotropium 0.018 MG/ACTUAT Inhalant Powder [Spiriva] Notes: (Same As: Spiriva) No Longer Active 01/17/2015 [facility] multivitamin Notes: (Same as:O ne Tab Daily, Tab-A-Nadir + Beta Carotene) Give with food. No Longer Active 01/17/2015 [facility] 120 ACTUAT Fluticasone propionate 0.05 M G/ACTUAT Nasal Inhaler Notes: (Same as: Flonase) No Longer Active 01/17/2015 [facility] Advair Diskus 500 mcg-50 mcg inhalation powder 1 puff, Route: INHALATION, Drug Form: AERO, Dosing Weight 51.932, kg, BID, Start date: 01/17/15 9:00:00, Duration: 30 day, Stop date: 02/15/15 17:00:00 No Longer Active 01/17/2015 [facility] Citracal + D 315 mg-250 intl units oral tablet Notes: (Same As: Citracal Caplets Plus D) No Longer Active 01/17/2015 [facility] Vitamin C Notes: (Same as: Vit elam C) No Longer Active 01/17/2015 [facility] Thyroxine Notes: Take 1 hour b efore or 2 hours after meal; Enteral feeds may interefere with the absorption of this medication. (Same as:Synthroid, Levothroid) No Longer Active 01/17/2015 [facility] Xopenex 0.63 mg, 3 mL, Route: NEB, Drug form: SOLN, Q8H, Dosing Weight 51.932, kg, Start date: 01/17/15 0:00:00, Duration: 30 day, Stop date: 02/15/15 16:00:00 No Longer Active 01/17/2015 [facility] Zocor Notes: (Same as: Zocor) No Longer Active 01/17/2015 [facility] Acetaminophen 325 MG / Hydrocodone Chay trate 5 MG Oral Tablet [[place] 5/325] Notes: (Same as: [place] 325/5) Do not ex ceed 4gm/day of acetaminophen. No Longer Activ e 01/16/2015 [facility] albuterol Notes: SEE RT DOCUME NTATION (Same as: Proventil); pharmacy re entry of e order-- No Longer Active 01/16/2015 [facility] Protonix Notes: Tablet should not be chewed or crushed. (Same as: Protonix) No Longer Active 01/16/2015 [facility] Ventolin HFA 90 mcg/inh inhalation aerosol with adapte r Notes: Albuterol 90 microgram/inh 8gm HFA Same as: Ventolin, Proventil No Longer Active 01/16/2015 [facility] Prilosec 20 mg, Route: PO, Horacio g form: DRC, Daily, Dosing Weight 51.932, kg, PRN, Start date: 01/16/15 18:09:00, Duration: 30 day, Stop date: 02/15/15 18:08:00, none Inactive 01/16/2015 [facility] Miralax Notes: Dissolve in 8 o z of water or juice. (Same as: Miralax) No Longer Active 01/16/2015 [facility] Docusate Sodium 100 MG Oral Capsule [Colace] Notes: (Same as: Colace) (Do Not Crush) No Longer Active 01/16/2015 [facility] Diovan Notes: Same as Diovan No Longer Active 01/16/2015 [facility] Astelin Notes: (azelastine 137 microgram/inh 34 ml nasal SPR) Non-formulary drug. Same As: Astelin) No Longer Active 01/16/2015 [facility] Advair Diskus 500 mcg-50 mcg inhalation powder 1 puff, Route: INHALATION, Dosing Weight 51.364, kg, BID, Start date: 01/16/15 9:00:00, Duration: 30 day, Stop date: 02/14/15 17:00:00 No Longer Active 01/16/2015 [facility] budesonide-formoterol 160 mcg-4.5 mcg/in h inhalation aerosol with adapter Notes: (Same as: Symbicort) No Longer Active 01/15/2015 [facility] Acetaminophen Notes: Do not ex ceed 4 gm/day. (Same as: Tylenol) No Longer Active 01/15/2015 [facility] Ondansetron 4 mg, Route: IVP, Q8H, Dosing Weight 51.364, kg, PRN Nausea & Vomiting, Start date: 01/15/15 17:38:00, Duration: 30 day, Stop date: 02/14/15 17:37:00 Inactive 01/15/2015 [facility] Saline Flush 0.9% Notes: Same as: BD Posiflush Sterile No Longer Active 01/15/2015 [facility] NS 1,000 mL 1,000 mL, Rate: 75 ml/hr, Infuse over: 13.3 hr, Route: IV, Dosing Weight 51.364 kg, Total Volume: 1,000, Start date: 01/15/15 17:10:00, Duration: 30 day, Stop date: 02/14/15 17:09:00 No Longer Active 01/15/2015 [facility] Acetaminophen 325 MG / Hydrocodone Chay trate 10 MG Oral Tablet [Bristol 10/325] Notes: Do not exceed 4gm/day of acetamin ophen. (Same as: [place] 325/10) No Longer Active 01/15/2015 [facility] Lactulose Notes: (Same as:[employer] nulac) No Longer Active 01/15/2015 [facility] Dulcolax Laxative Notes: (Same As: Dulcolax, Correctol) (Do Not Crush) "Do Not Crush" No Longer Active 01/15/2015 [facility] Tylenol 100.4 F, Start date: 01/15/15 17:06:00, Duration: 30 day, Stop date: 02/14/15 17:05:00 Inactive 01/15/2015 [facility] Zofran Notes: (Same as: Zofran ) MEDICATION WASTE Product Size: 4 mg Product Wasted: ___ mg No Longer Active 01/15/2015 [facility] Hydralazine Notes: (Same as: A presoline) Push over 5 minutes No Longer Active 01/15/2015 [facility] Lovenox Notes: (Same as: Loven ox) No Longer Active 01/15/2015 [facility] Sodium Chloride 0.154 MEQ/ML Injectable Solution 500 mL, 500 ml/hr, Infuse Over: 1 hr, Route: IV, ONCE, Priority: STAT, Dosing Weight 51.364 kg, Start date: 01/15/15 16:23:00, Duration: 1 doses or times, Stop date: 01/15/15 16:23:00 Inactive 01/15/2015 [facility] Nasal Saline 0.65% solution No laura: (Same as: [place], Deep Sea Nasal [place]). No Longer Active 01/04/2015 [facility] Dayron Dominguez Notes: (Same A s: Dayron Dominguez) "Do Not Crush" No Longer Active 01/04/2015 [facility] Docusate Sodium 100 MG Oral Capsule [Colace] Notes: (Same as: Colace) (Do Not Crush) No Longer Active 01/03/2015 [facility] Lactulose Notes: (Same as:[employer] nulac) No Longer Active 01/03/2015 [facility] Calcium Gluconate 2 gm, 20 mL, Route: IVPB, Drug form: INJ, PRN, Dosing Weight 50.54, kg, PRN Abnormal Lab Result, For NON-ICU Patients Only., Start date: 01/02/15 11:11:00, Duration: 30 day, Stop date: 02/01/15 11:10:00 No Longer Active 01/02/2015 [facility] Magnesium Sulfate 2 gm, 50 mL, Route: IVPB, Drug form: INJ, PRN, Dosing Weight 50.54, kg, PRN Abnormal Lab Result, For NON-ICU Patients Only., Start date: 01/02/15 11:11:00, Duration: 30 day, Stop date: 02/01/15 11:10:00 No Longer Active 01/02/2015 [facility] Magnesium Oxide Notes: (Same a s: Mag-Ox 400) Magnesium oxide [id number] elemental magnesium Dose=____mg magnesium oxide (___mg elemental magnesium) No Longer Active 01/02/2015 [facility] potassium phosphate + Sodium Chloride 0.9% IV 250 mL Notes: (Same as: K Phosphate.) 1 mMol phoshate has 1.47 mEq potassium Infuse over 4 hours No Longer Active 01/02/2015 [facility] sodium phosphate + Sodium Chloride 0.9% IV 250 mL 15 mmol, 5 mL, Route: IVPB, Drug form: INJ, PRN, Dosing Weight 50.54, kg, PRN Abnormal Lab Result, For NON-ICU Patients Only., Start date: 01/02/15 11:11:00, Duration: 30 day, Stop date: 02/01/15 11:10:00 No Longer Active 01/02/2015 [facility] potassium chloride Notes: Infu se at a rate of 10 mEq/hr. (Same as: KCL) No Longer Active 01/02/2015 [facility] potassium phosphate-sodium phosphate 250 mg-278 mg-164 mg oral powder Notes: (Same as: Neutra-Phos) Each 1.25 gm pkt has 250mg phosphorous. Mix w/2.5oz water and stir. No Longer Active 01/02/2015 [facility] Saline Flush 0.9% Notes: Same as: BD Posiflush Sterile No Longer Active 01/02/2015 [facility] Guaifenesin Notes: (Same as: R obitussin) No Longer Active 01/01/2015 [facility] Saline Flush 0.9% Notes: Same as: BD Posiflush Sterile No Longer Active 01/01/2015 [facility] Sodium Chloride 0.9% IV 1,000 mL 1,000 mL, Rate: 125 ml/hr, Infuse over: 8 hr, Route: IV, Dosing Weight 50.54 kg, Total Volume: 1,000, Start date: 12/31/14 18:21:00, Duration: 30 day, Stop date: 01/30/15 18:20:00 No Longer Active 12/31/2014 [facility] Megace 400 mg, 10 mL, Route: P O, Drug form: SUSP, BID, Dosing Weight 50.54, kg, Start date: 12/31/14 17:00:00, Duration: 30 day, Stop date: 01/30/15 9:00:00 No Longer Active 12/31/2014 [facility] sodium chloride Notes: preserv ative free. No Longer Active 12/31/2014 [facility] Colistin Nebulization Colistin Nebulization, 100 mg, Route: NEB, RQ12H, 12/31/14 14:46:00, Stop date: 01/30/15 4:00:00 No Longer Active 12/31/2014 [facility] Protonix Notes: Tablet should not be chewed or crushed. (Same as: Protonix) No Longer Active 12/31/2014 [facility] Sodium Chloride 0.154 MEQ/ML Injectable Solution 1,000 mL, Rate: 60 ml/hr, Infuse over: 16.7 hr, Route: IV, Dosing Weight 50.54 kg, Total Volume: 1,000, Start date: 12/31/14 10:19:00, Duration: 30 day, Stop date: 01/30/15 10:18:00 Inactive 12/31/2014 [facility] tolvaptan Notes: Same as: [place] ca No Longer Active 12/31/2014 [facility] Diovan Notes: Same as Diovan No Longer Active 12/31/2014 [facility] tiotropium 0.018 MG/ACTUAT Inhalant Powder [Spiriva] Notes: (Same As: Spiriva) No Longer Active 12/31/2014 [facility] Sodium Chloride 1000 MG Oral Tablet 1 gm, 1 tab, Route: PO, Drug form: TAB, Daily, Dosing Weight 51.364, kg, Start date: 12/31/14 9:00:00, Duration: 30 day, Stop date: 01/29/15 9:00:00 No Longer Active 12/31/2014 [facility] Vitamin C Notes: (Same as: Vit elam C) No Longer Active 12/31/2014 [facility] Thyroxine Notes: Take 1 hour b efore or 2 hours after meal; Enteral feeds may interefere with the absorption of this medication. (Same as:Synthroid, Levothroid) No Longer Active 12/31/2014 [facility] Compazine Notes: (Same as: Com pazine) No Longer Active 12/31/2014 [facility] Advair Diskus 500 mcg-50 mcg inhalation powder 1 puff, Route: INHALATION, Drug Form: AERO, Dosing Weight 51.364, kg, BID, Start date: 12/30/14 17:00:00, Duration: 30 day, Stop date: 01/29/15 9:00:00 Inactive 12/30/2014 [facility] budesonide-formoterol 160 mcg-4.5 mcg/in h inhalation aerosol with adapter Notes: (Same as: Symbicort) Inactive 12/30/2014 [facility] Ventolin HFA 90 mcg/inh inhalation aerosol with adapte r Notes: Albuterol 90 microgram/inh 8gm HFA Same as: Ventolin, Proventil No Longer Active 12/30/2014 [facility] budesonide-formoterol 160 mcg-4.5 mcg/in h inhalation aerosol with adapter Notes: (Same as: Symbicort) No Longer Active 12/30/2014 [facility] 120 ACTUAT Fluticasone propionate 0.05 M G/ACTUAT Nasal Inhaler Notes: (Same as: Flonase) No Longer Active 12/30/2014 [facility] 200 ACTUAT Azelastine hydrochloride 0.13 7 MG/ACTUAT Nasal Inhaler [Astelin] Notes: (azelastine 137 microgram/inh 34 ml nasal SPR) Non- formulary drug. Same As: Astelin) No Longer Active 12/30/2014 [facility] Prochlorperazine Notes: (Same as: Compazine) Inactive 12/30/2014 [facility] Phenergan Notes: (Same as: Phe nergan) No Longer Active 12/30/2014 [facility] Reglan Notes: (Same as: Reglan) No Longer Active 12/30/2014 [facility] Sodium Chloride 0.154 MEQ/ML Injectable Solution 1,000 mL, Rate: 125 ml/hr, Infuse over: 8 hr, Route: IV, Dosing Weight 51.364 kg, Total Volume: 1,000, Start date: 12/30/14 10:46:00, Duration: 30 day, Stop date: 01/29/15 10:45:00 Inactive 12/30/2014 [facility] Saline Flush 0.9% Notes: Same as: BD Posiflush Sterile No Longer Active 12/30/2014 [facility] Enoxaparin Notes: (Same as: Lo venox) No Longer Active 12/30/2014 [facility] Advair Diskus 250 mcg-50 mcg inhalation powder 1 inhalation, Route: INHALER, Drug Form: AERO, Dosing Weight 51.364, kg, RBID, Start date: 12/30/14 9:51:00, Duration: 30 day, Stop date: 01/29/15 8:00:00 Inactive 12/30/2014 [facility] Hydralazine Notes: (Same as: A presoline) Push over 5 minutes No Longer Active 12/30/2014 [facility] Tylenol Notes: Do not exceed 4 gm/day. (Same as: Tylenol) No Longer Active 12/30/2014 [facility] Zofran Notes: (Same as: Zofran ) MEDICATION WASTE Product Size: 4 mg Product Wasted: ___ mg No Longer Active 12/30/2014 [facility] Sodium Chloride 0.154 MEQ/ML Injectable Solution 1,000 mL, Rate: 125 ml/hr, Infuse over: 8 hr, Route: IV, Dosing Weight 51.364 kg, Total Volume: 1,000, Start date: 12/30/14 8:39:00, Duration: 30 day, Stop date: 01/29/15 8:38:00 No Longer Active 12/30/2014 [facility] Sodium Chloride 0.154 MEQ/ML Injectable Solution 1,000 mL, 1000 ml/hr, Infuse Over: 1 hr, Route: IV, 1,000, Drug form: INJ, ONCE, Priority: STAT, Dosing Weight 51.364 kg, Start date: 12/30/14 7:06:00, Duration: 1 doses or times, Stop date: 12/30/14 7:06:00 Inactive 12/30/2014 [facility] Zofran Notes: (Same as: Zofran ) MEDICATION WASTE Product Size: 4 mg Product Wasted: 0___ mg Inactive 12/30/2014 [facility] Amoxicillin 875 MG / Clavulanate 125 MG Oral Tablet [Augmentin 875-mg] 875 mg = 1 tab, PO, Q12H, # 14 tab, 0 Re fill(s) Active 12/25/2014 [facility] Levofloxacin 750 MG Oral Tablet [Levaquin] 750 mg = 1 tab, PO, Q24H, # 7 tab, 0 Refill(s) Active 12/25/2014 [facility] Dulcolax Laxative Notes: (Same As: Dulcolax, Correctol) (Do Not Crush) "Do Not Crush" No Longer Active 12/24/2014 [facility] Miralax Notes: Dissolve in 8 o z of water or juice. (Same as: Miralax) Inactive 12/24/2014 [facility] Vancomycin 2001 mg: infuse ov er 2.5 hours MEDICATION WASTE Product Size: 1000 mg Product Wasted: ___ mg No Longer Active 12/24/2014 [facility] Levaquin Notes: (Same as:Levaq uin) No Longer Active 12/24/2014 [facility] Vancomycin 1 gm, 200 mL, Route : IVPB, Drug form: INJ, [id number], Dosing Weight 51.364, kg, Start date: 12/23/14 22:00:00, Duration: 1 doses or times, Stop date: 12/23/14 22:00:00 Inactive 12/24/2014 [facility] Hydralazine Notes: (Same as: A presoline) Push over 5 minutes No Longer Active 12/23/2014 [facility] Osteo Bi-Flex 1 tab, Route: PO , Dosing Weight 51.364, kg, Daily, Start date: 12/22/14 9:00:00, Duration: 30 day, Stop date: 01/20/15 9:00:00 No Longer Active 12/22/2014 [facility] lactobacillus rhamnosus GG Not es: Same as Culturelle No Longer Active 12/22/2014 [facility] Diovan Notes: Same as Diovan No Longer Active 12/22/2014 [facility] tiotropium 0.018 MG/ACTUAT Inhalant Powder [Spiriva] Notes: (Same As: Spiriva) No Longer Active 12/22/2014 [facility] lactobacillus acidophilus 1 ca p, Route: PO, Drug Form: CAP, Dosing Weight 51.364, kg, Daily, Start date: 12/22/14 9:00:00, Duration: 30 day, Stop date: 01/20/15 9:00:00 No Longer Active 12/22/2014 [facility] omega-3 polyunsaturated fatty acids Notes: (Same as: MaxEPA, [place] 3 fish oil ) Non-Formulary Drug No Longer Active 12/22/2014 [facility] multivitamin Notes: (Same as:O ne Tab Daily, Tab-A-Nadir + Beta Carotene) Give with food. No Longer Active 12/22/2014 [facility] Protonix Notes: Tablet should not be chewed or crushed. (Same as: Protonix) No Longer Active 12/22/2014 [facility] Thyroxine Notes: Take 1 hour b efore or 2 hours after meal; Enteral feeds may interefere with the absorption of this medication. (Same as:Synthroid, Levothroid) No Longer Active 12/22/2014 [facility] budesonide-formoterol 160 mcg-4.5 mcg/in h inhalation aerosol with adapter Notes: (Same as: Symbicort) No Longer Active 12/22/2014 [facility] Simvastatin Notes: (Same as: Z ocor) No Longer Active 12/22/2014 [facility] TamiFLU Notes: Take with food. Same as: Tamiflu) No Longer Active 12/22/2014 [facility] Advair Diskus 500 mcg-50 mcg inhalation powder 1 puff, Route: INHALATION, Drug Form: AERO, Dosing Weight 51.364, kg, BID, Start date: 12/21/14 17:00:00, Duration: 30 day, Stop date: 01/20/15 9:00:00 Inactive 12/21/2014 [facility] Enoxaparin Notes: (Same as: Lo venox) No Longer Active 12/21/2014 [facility] Vitamin C Notes: (Same as: Vit elam C) No Longer Active 12/21/2014 [facility] Citracal + D 315 mg-250 intl units oral tablet Notes: (Same As: Citracal Caplets Plus D) No Longer Active 12/21/2014 [facility] Ventolin HFA 90 mcg/inh inhalation aerosol with adapte r Notes: Albuterol 90 microgram/inh 8gm HFA Same as: Ventolin, Proventil No Longer Active 12/21/2014 [facility] Acetaminophen 325 MG / Hydrocodone Chay trate 5 MG Oral Tablet [[place] 5/325] Notes: (Same as: [place] 325/5) Do not ex ceed 4gm/day of acetaminophen. No Longer Activ e 12/21/2014 [facility] ibandronic acid 150 MG Oral Tablet [Boniva] 150 mg, 1 tab, Route: PO, Drug form: TAB, ONCE, Dosing Weight 51.364, kg, Start date: 12/21/14 15:07:00, Stop date: 12/21/14 15:07:00 Inactive 12/21/2014 [facility] Xopenex Notes: SEE RT DOCUMENT ATION (Same as:Xopenex) Non-Formulary No Longer Active 12/21/2014 [facility] 120 ACTUAT Fluticasone propionate 0.05 M G/ACTUAT Nasal Inhaler Notes: (Same as: Flonase) No Longer Active 12/21/2014 [facility] 200 ACTUAT Azelastine hydrochloride 0.13 7 MG/ACTUAT Nasal Inhaler [Astelin] Notes: (azelastine 137 microgram/inh 34 ml nasal SPR) Non- formulary drug. Same As: Astelin) No Longer Active 12/21/2014 [facility] Advair Diskus 500 mcg-50 mcg inhalation powder 1 puff, INHALATION, BID, # 28 ea, 0 Refill(s) Active 12/21/2014 [facility] Tamiflu 60 ml/hr, Start date: 12/21/14 8:00:00, Duration: 5 day, Stop date: 12/25/14 20:00:00 Inactive 12/21/2014 [facility] Saline Flush 0.9% Notes: Same as: BD Posiflush Sterile No Longer Active 12/21/2014 [facility] Tamiflu 60 ml/hr, Start date: 12/21/14 7:35:00, Stop date: 12/21/14 7:35:00 Inactiv e 12/21/2014 [facility] cefepime Notes: (Same As: Mc centeno) MEDICATION WASTE Product Size: 1000 mg Product Wasted: ___ mg No Longer Active 12/21/2014 [facility] Sodium Chloride 0.154 MEQ/ML Injectable Solution 1,000 mL, Rate: 125 ml/hr, Infuse over: 8 hr, Route: IV, Dosing Weight 51.364 kg, Total Volume: 1,000, Start date: 12/21/14 6:08:00, Duration: 30 day, Stop date: 01/20/15 6:07:00 No Longer Active 12/21/2014 [facility] Saline Flush 0.9% Notes: Same as: BD Posiflush Sterile No Longer Active 12/21/2014 [facility] Morphine Notes: (Same as:MORPh ine Sulfate) No Longer Active 12/21/2014 [facility] Ondansetron Notes: (Same as: Susan roberts) MEDICATION WASTE Product Size: 4 mg Product Wasted: ___ mg No Longer Active 12/21/2014 [facility] Acetaminophen Notes: Do not ex ceed 4 gm/day. (Same as: Tylenol) No Longer Active 12/21/2014 [facility] cefepime Notes: (Same as: Mc centeno) MEDICATION WASTE Product Size: 2000 mg Product Wasted: ___ mg Inactive 12/21/2014 [facility] Sodium Chloride 0.154 MEQ/ML Injectable Solution 1,000 mL, 1000 ml/hr, Infuse Over: 1 hr, Route: IV, 1,000, Drug form: INJ, ONCE, Priority: STAT, Dosing Weight 51.364 kg, Start date: 12/21/14 3:12:00, Duration: 1 doses or times, Stop date: 12/21/14 3:12:00 Inactive 12/21/2014 [facility] Tylenol Notes: Do not exceed 4 gm/day. (Same as: Tylenol) Inactive 12/21/2014 [facility] Morphine Notes: (Same as:MORPh ine Sulfate) Inactive 12/21/2014 [facility] Zofran Notes: (Same as: Zofran ) MEDICATION WASTE Product Size: 4 mg Product Wasted: ___ mg Inactive 12/21/2014 [facility] tiotropium 0.018 MG/ACTUAT Inhalant Powder [Spiriva] Notes: (Same As: Spiriva) Inactive 11/27/2014 [facility] Thyroxine Notes: Take 1 hour b efore or 2 hours after meal; Enteral feeds may interefere with the absorption of this medication. (Same as:Synthroid, Levothroid) Inactive 11/27/2014 [facility] Zocor Notes: (Same as: Zocor) No Longer Active 11/27/2014 [facility] Acetaminophen 325 MG / Hydrocodone Chay trate 5 MG Oral Tablet [B[place] 5/325] Notes: (Same as: [place] 325/5) Do not ex ceed 4gm/day of acetaminophen. No Longer Activ e 11/26/2014 [facility] Advair Diskus 500 mcg-50 mcg inhalation powder 1 puff, Route: INHALATION, Drug Form: AERO, Dosing Weight 47.727, kg, BID, Start date: 11/26/14 17:00:00, Duration: 30 day, Stop date: 12/26/14 9:00:00 Inactive 11/26/2014 [facility] budesonide-formoterol 160 mcg-4.5 mcg/in h inhalation aerosol with adapter Notes: (Same as: Symbicort) No Longer Active 11/26/2014 [facility] Clonidine Hydrochloride 0.1 MG Oral Tablet Notes: (Same As: Catapres) No Longer Active 11/26/2014 [facility] Albuterol 0.833 MG/ML / Ipratropium Brom enid 0.167 MG/ML Inhalant Solution [DuoNeb] Notes: (Same as: Duoneb) No Longer Active 11/26/2014 [facility] Ondansetron 4 MG Oral Tablet [Zofran] PO, PRN, 0 Refill(s) Active 11/26/2014 [facility] Calcium Gluconate 3 gm, 30 mL, Route: IVPB, PRN, Dosing Weight 47.727, kg, PRN Abnormal Lab Result, For NON-ICU Patients Only., Start date: 11/25/14 20:54:00, Duration: 30 day, Stop date: 12/25/14 20:53:00 No Longer Active 11/26/2014 [facility] Magnesium Oxide Notes: (Same a s: Mag-Ox 400) Magnesium oxide [id number] elemental magnesium Dose=____mg magnesium oxide (___mg elemental magnesium) No Longer Active 11/26/2014 [facility] Magnesium Sulfate 1 gm, 100 mL , Route: IVPB, Drug form: INJ, PRN, Dosing Weight 47.727, kg, PRN Abnormal Lab Result, For NON-ICU Patients Only., Start date: 11/25/14 20:54:00, Duration: 30 day, Stop date: 12/25/14 20:53:00 No Longer Active 11/26/2014 [facility] sodium phosphate + Sodium Chloride 0.9% IV 250 mL 30 mmol, 10 mL, Route: IVPB, PRN, Dosing Weight 47.727, kg, PRN Abnormal Lab Result, For NON-ICU Patients Only., Start date: 11/25/14 20:54:00, Duration: 30 day, Stop date: 12/25/14 20:53:00 No Longer Active 11/26/2014 [facility] potassium phosphate + Sodium Chloride 0.9% IV 250 mL Notes: (Same as: K Phosphate.) 1 mMol phoshate has 1.47 mEq potassium Infuse over 4 hours No Longer Active 11/26/2014 [facility] potassium chloride Notes: Infu se at a rate of 10 mEq/hr. (Same as: KCL) No Longer Active 11/26/2014 [facility] potassium phosphate-sodium phosphate 250 mg-278 mg-164 mg oral powder Notes: (Same as: Neutra-Phos) Each 1.25 gm pkt has 250mg phosphorous. Mix w/2.5oz water and stir. No Longer Active 11/26/2014 [facility] Protonix Notes: For IV push re constitute with 10 ml 0.9% sodium chloride and push over 2 minutes. (Same as: Protonix) No Longer Active 11/25/2014 [facility] Ondansetron Notes: (Same as: Susan roberts) No Longer Active 11/25/2014 [facility] Acetaminophen Notes: Do not ex ceed 4 gm/day. (Same as: Tylenol) No Longer Active 11/25/2014 [facility] Sodium Chloride 0.154 MEQ/ML Injectable Solution 1,000 mL, Rate: 125 ml/hr, Infuse over: 8 hr, Route: IV, Dosing Weight 47.727 kg, Total Volume: 1,000, Start date: 11/25/14 18:45:00, Duration: 30 day, Stop date: 12/25/14 18:44:00 No Longer Active 11/25/2014 [facility] Saline Flush 0.9% Notes: Same as: BD Posiflush Sterile No Longer Active 11/25/2014 [facility] NS 1000 mL 1,000 mL, Rate: 150 ml/hr, Infuse over: 6.7 hr, Route: IV, Dosing Weight 47.727 kg, Total Volume: 1,000, Start date: 11/25/14 18:44:00, Duration: 30 day, Stop date: 12/25/14 18:43:00 Inactive 11/25/2014 [facility] Saline Flush 0.9% Notes: Same as: BD Posiflush Sterile No Longer Active 11/25/2014 [facility] Sodium Chloride 0.154 MEQ/ML Injectable Solution 1,000 mL, Infuse Over: 1 hr, Route: IV, ONCE, Priority: STAT, Dosing Weight 47.727 kg, Start date: 11/25/14 15:34:00, Duration: 1 doses or times, Stop date: 11/25/14 15:34:00 Inactive 11/25/2014 [facility] Protonix Notes: Tablet should not be chewed or crushed. (Same as: Protonix) No Longer Active 08/14/2014 [facility] NS 1,000 mL 1,000 mL, Rate: 50 ml/hr, Infuse over: 20 hr, Route: IV, Dosing Weight 54.2 kg, Total Volume: 1,000, Start date: 08/14/14 16:02:00, Stop date: 09/12/14 18:12:00 No Longer Active 08/14/2014 [facility] lactobacillus rhamnosus GG Not es: Same as Culturelle No Longer Active 08/14/2014 [facility] Synthroid Notes: Take 1 hour b efore or 2 hours after meal; Enteral feeds may interefere with the absorption of this medication. (Same as:Synthroid, Levothroid) No Longer Active 08/14/2014 [facility] Lactobacillus Sporogenes 1 tab , Route: PO, Drug Form: CAP, Dosing Weight 49.716, kg, Daily, Start date: 08/14/14 9:00:00, Duration: 30 day, Stop date: 09/12/14 9:00:00 No Longer Active 08/14/2014 [facility] budesonide-formoterol 160 mcg-4.5 mcg/in h inhalation aerosol with adapter Notes: (Same as: Symbicort) No Longer Active 08/14/2014 [facility] Fluticasone propionate 0.5 MG/ACTUAT / s almeterol 0.05 MG/ACTUAT Dry Powder Inhaler [Advair 500/50] 1 puff, Route: INHALATION, Drug Form: AERO, Dosing Weight 49.716, kg, BID, Start date: 08/14/14 9:00:00, Duration: 30 day, Stop date: 09/12/14 17:00:00 No Longer Active 08/14/2014 [facility] tiotropium 0.018 MG/ACTUAT Inhalant Powder [Spiriva] Notes: (Same As: Spiriva) No Longer Active 08/14/2014 [facility] Zocor Notes: (Same as: Zocor) No Longer Active 08/14/2014 [facility] acetaminophen-hydrocodone 325 mg-5 mg oral tablet Notes: (Same as: [place] 325/5) Do not exceed 4gm/day of acetaminophen. No Longer Active 08/14/2014 [facility] valsartan 40 MG Oral Tablet [Diovan] 40 mg = 1 tab, PO, BID, # 180 tab, 0 Refill(s) Active 08/14/2014 [facility] ibandronic acid 150 MG Oral Tablet [Boniva] 150 mg = 1 tab, PO, qMonth, # 1 tab, 0 Refill(s) Active 08/14/2014 [facility] 120 ACTUAT Fluticasone propionate 0.11 M G/ACTUAT Metered Dose Inhaler [Flovent] 2 puff, INHALATION, BID, # 12 gm, 0 Refi ll(s) Active 08/14/2014 [facility] 120 ACTUAT Fluticasone propionate 0.05 M G/ACTUAT Nasal Inhaler [Flonase] 1 spray, NASAL, Daily, # 16 gm, 0 Refill (s) Active 08/14/2014 [facility] Enoxaparin Notes: (Same as: Lo venox) No Longer Active 08/14/2014 [facility] Mucinex Notes: (Same as: Guaif enesin LA, Humibid LA, Mucinex) "Do Not Crush" Take medication with plenty of water. No Longer Active 08/14/2014 [facility] Hydralazine Notes: (Same as: A presoline) Push over 5 minutes No Longer Active 08/14/2014 [facility] Xopenex Notes: SEE RT DOCUMENT ATION (Same as:Xopenex) Non-Formulary No Longer Active 08/14/2014 [facility] NS 1,000 mL 1,000 mL, Rate: 75 ml/hr, Infuse over: 13.3 hr, Route: IV, Dosing Weight 49.716 kg, Total Volume: 1,000, Start date: 08/13/14 18:14:00, Duration: 30 day, Stop date: 09/12/14 18:13:00 No Longer Active 08/14/2014 [facility] Sodium Chloride 3% (Hypertonic) IV 180 mL Notes: "Administer by central venous catheter or a peripherally inserted central catheter (PICC) line. 3% Sodium Chloride may be infused via peripheral administration into large vein (antecubital) only in the case of emergency for short term use until a central line can be inserted" (Same as: Hypertonic Saline 3%) Inactive 08/14/2014 [facility] Sodium Chloride 0.154 MEQ/ML Injectable Solution 1,000 mL, 1000 ml/hr, Infuse Over: 1 hr, Route: IV, 1,000, Drug form: INJ, ONCE, Priority: STAT, Dosing Weight 49.716 kg, Start date: 08/13/14 16:56:00, Duration: 1 doses or times, Stop date: 08/13/14 16:56:00 Inactive 08/13/2014 [facility] Saline Flush 0.9% Notes: Same as: BD Posiflush Sterile No Longer Active 08/13/2014 [facility] Augmentin 1 tab(s) orally Active 875 mg-125 mg orally ev jayshree 12 hours [facility] 07[facility] orally Active 20 mg orally once a day [facility] 07/20/2014 [facility] prednisone 2 tabs orally Active 20 mg orally once a day [facility] 07/20/2014 [facility] Aug[facility] 1 tab(s) orally Active 875 mg-125 mg orally ev jayshree 12 hours [facility] 07/20/2014 [facility] Levaquin 1 tab(s) orally Active 500 mg orally every 24 hours [facility] 06/14/2014 [facility] Levaquin 1 tab(s) orally Active 500 mg orally every 24 hours [facility] 06/14/2014 [facility] ibandronate 1 tab(s) orally Active [facility] ibandronate 1 tab(s) orally Active 150 mg orally once a mo [facility] 03/13/2014 [facility] levothyroxine 1 tab(s) orally Active 75 mcg (0.075 mg) orall y once a day [facility] 03/12/2014 [facility] Astelin 2 spray(s) intranasally Active 137 mcg/inh intranasall y QD [facility] 02/08/2014 [facility] Astelin 2 spray(s) intranasally Active 137 mcg/inh intranasall y QD [facility] 02/08/2014 [facility] ibandronate 1 tab(s) orally Active 150 mg orally once a mo [facility] 10/16/2013 [facility] Ventolin HFA 2 puff(s) inhaled Active CFC free 90 mcg/inh inhaled qid prn [facility] 10/12/2013 [facility] Ventolin HFA 2 puff(s) inhaled Active CFC free 90 mcg/inh inhaled qid prn [facility] 10/12/2013 [facility] levothyroxine 1 tab(s) orally Active 75 mcg (0.075 mg) orall y once a day [facility] 10/02/2013 [facility] Augmentin 1 tab(s) orally Active 875 mg-125 mg orally ev jayshree 12 hours [facility] 08/17/2013 [facility] Mucinex 1 tab(s) orally Active 600 mg orally every 12 hours [facility] 08/03/2013 [facility] Mucinex 1 tab(s) orally Active 600 mg orally every 12 hours [facility] 08/03/2013 [facility] Levaquin 1 tab(s) orally Active 500 mg orally every 24 hours [facility] 08/03/2013 [facility] ibandronate 1 tab(s) orally Active 150 mg orally once a mo [facility] 07/20/2013 [facility] fluticasone nasal 1 spray(s) intranasally Active 50 mcg/inh intranasally once a day [facility] 07/18/2013 [facility] fluticasone nasal 1 spray(s) intranasally Active 50 mcg/inh intranasally once a day [facility] 07/18/2013 [facility] levothyroxine 1 tab(s) orally Active 75 mcg (0.075 mg) orall y once a day [facility] 06/30/2013 [facility] levothyroxine 1 tab(s) orally Active 75 mcg (0.075 mg) orall y once a day [facility] 05/26/2013 [facility] guaifenesin 1 tab(s) orally Active 400 mg orally every 4 h ours [facility] 04/28/2013 [facility] Avelox 1 tab(s) orally Active 400 mg orally once a da y [facility] 04/28/2013 [facility] guaifenesin 1 tab(s) orally Active 400 mg orally every 4 h ours [facility] 04/28/2013 [facility] Avelox 1 tab(s) orally Active 400 mg orally once a da y [facility] 04/28/2013 [facility] Avelox 1 tab(s) orally Active 400 mg orally once a da y [facility] 04/28/2013 [facility] guaifenesin 1 tab(s) orally Active 400 mg orally every 4 h ours [facility] 04/28/2013 [facility] Boniva 1 tab(s) orally Active 150 mg orally once a mo [facility] 04/03/2013 [facility] simvastatin 1 tab(s) orally Active 20 mg orally once a day (at bedtime) [facility] 04/03/2013 [facility] simvastatin 1 tab(s) orally Active 20 mg orally once a day (at bedtime) [facility] 04/03/2013 [facility] Boniva 1 tab(s) orally Active 150 mg orally once a mo [facility] 04/03/2013 [facility] Boniva 1 tab(s) orally Active 150 mg orally once a mo [facility] 04/03/2013 [facility] simvastatin 1 tab(s) orally Active 20 mg orally once a day (at bedtime) [facility] 04/03/2013 [facility] Hydrocodone-Acetaminophen 5-325 MG Oral Tablet ; Start Date: 03/31/2013 (Active) Active 03/31/2013 [facility] meclizine 25 mg oral tablet 25 mg, PO, Q6H, PRN, 30 tab, Dizziness, Substitution Allowed PO Active [facility] 02/24/2013 [facility] Tylenol 650 mg, Route: PO, ONC E, Dosing Weight 57.273, kg, Priority: STAT, Start date: 02/24/13 15:07:00, Stop date: 02/24/13 15:07:00 PO No Longer Active Margaret [facility] Saline Flush 0.9% 5 ml, Route: IVP, Drug Form: INJ, Dosing Weight 57.273, kg, PRN, PRN Line Flush, Start date: 02/24/13 12:17:00, Duration: 30 day, Stop date: 03/26/13 12:16:00 IVP No Longer Active [place] 02/24/2013 [facility] omeprazole 1 cap(s) orally Active 20 mg orally once a day [facility] 01/24/2013 [facility] Astelin 2 spray(s) intranasally Active 137 mcg/inh intranasall y QD [facility] 01/06/2013 [facility] Advair Diskus use one inhalati on twice daily inhaled Active 500 mcg-50 mcg inhaled bid [facility] 01/06/2013 [facility] Advair Diskus use one inhalati on twice daily inhaled Active 500 mcg-50 mcg inhaled bid [facility] 01/06/2013 [facility] Ventolin HFA 2 puff(s) inhaled Active CFC free 90 mcg/inh inhaled qid [facility] 01/06/2013 [facility] Astelin 2 spray(s) intranasally Active 137 mcg/inh intranasall y QD [facility] 01/06/2013 [facility] Astelin 2 spray(s) intranasally Active 137 mcg/inh intranasall y QD [facility] 01/06/2013 [facility] Advair Diskus use one inhalati on twice daily inhaled Active 500 mcg-50 mcg inhaled bid [facility] 01/06/2013 [facility] fluticasone nasal 1 spray(s) intranasally Active 50 mcg/inh intranasally once a day [facility] 09/26/2012 [facility] Duexis 800-26.6 MG Oral Tablet ; Start Date: 2012 (Active) Active 2012 [facility] Saline Mist 2 spray(s) intranasally Active 0.65% intranasally bid [facility] 06/23/2012 [facility] Saline Mist 2 spray(s) intranasally Active 0.65% intranasally bid [facility] 06/23/2012 [facility] Saline Mist 2 spray(s) intranasally Active 0.65% intranasally bid [facility] 06/23/2012 [facility] Prilosec 20 mg, Route: PO, Horacio g form: DRC, Daily, Start date: 04/16/12 9:00:00, Duration: 30 day, Stop date: 05/15/12 9:00:00 PO No Longer Active Blair Jacobo 04/16/2012 [facility] Synthroid 75 microgram, 1 tab, Route: PO, Drug form: TAB, Before Breakfast, Start date: 04/16/12 7:30:00, Duration: 30 day, Stop date: 05/15/12 7:30:00 PO No Longer Active Blair hanna 04/16/2012 [facility] cefazolin (SCIP) + Sodium Chloride 0.9% IV 100 mL 1 gm, Route: IVPB, Q8H, Start date: 04/16/12 0:00:00, Duration: 2 doses or times, Stop date: 04/16/12 8:00:00 IVPB No Longer Active Blair hanna 04/16/2012 [facility] Detrol LA 4 mg, 1 cap, Route: PO, Drug form: CAP, Daily, Start date: 04/15/12 20:00:00, Duration: 30 day, Stop date: 05/14/12 20:00:00 PO No Longer Active Carline 012 [facility] belladonna-opium 16.2 mg-30 mg rectal suppository 1 supp, Route: CT, Drug Form: SUPP, Q12H, PRN Pain, Start date: 04/15/12 18:23:00, Duration: 30 day, Stop date: 05/15/12 18:22:00 CT No Longer Active Carline 04/15/2012 [facility] meperidine 50 mg, 1 mL, Route: IVP, Drug form: INJ, Q4H, PRN Breakthrough Pain, Start date: 04/15/12 18:00:00, Duration: 4 day, Stop date: 04/19/12 17:59:00 IVP No Longer Active Daphne Tello 04/15/2012 [facility] ketorolac 15 mg, 0.5 mL, Route : IM, Drug form: INJ, Q6H, Start date: 04/15/12 18:00:00, Duration: 4 day, Stop date: 04/19/12 12:00:00 IM No Longer Active Blair Jacobo 04/15/2012 [facility] meperidine 25 mg, 1 mL, Route: IVP, Drug form: INJ, Q4H, PRN Breakthrough Pain, Start date: 04/15/12 17:58:00, Duration: 4 day, Stop date: 04/19/12 17:57:00 IVP No Longer Active Daphne Tello 04/15/2012 [facility] Zofran 4 mg, 2 mL, Route: IVP, Drug form: INJ, Q4H, PRN Nausea, Start date: 04/15/12 17:56:00, Duration: 30 day, Stop date: 05/15/12 17:55:00 IVP No Longer Active Daphne Tello 04/15/2012 [facility] Advair Diskus 500 mcg-50 mcg inhalation powder 1 inhalation, Route: INHALATION, Drug Form: AERO, BID, Start date: 04/15/12 17:00:00, Duration: 30 day, Stop date: 05/15/12 9:00:00 INHALATION No Longer Active Blair Jacobo 04/15/2012 [facility] Protonix 40 mg, 1 tab, Route: PO, Drug form: ECTAB, Before Dinner, Start date: 04/15/12 16:30:00, Duration: 30 day, Stop date: 05/14/12 16:30:00 PO No Longer Active Jayme 04/15/2012 [facility] cefazolin + Sodium Chloride 0.9% IV 100 mL 1 gm, Route: IVPB, ONCE, Start date: 04/15/12 16:00:00, Stop date: 04/15/12 16:00:00 IVPB No Longer Active Blair Jacobo 04/15/2012 [facility] dexamethasone 4 mg, Route: IVP , Q6H, Start date: 04/15/12 12:00:00, Duration: 30 day, Stop date: 05/15/12 6:00:00 IVP No Longer Active Delacruz 04/15/2012 [facility] Restoril 15 mg, 1 cap, Route: PO, Drug form: CAP, Bedtime, PRN Sleep, Start date: 04/15/12 11:22:00, Duration: 30 day, Stop date: 05/15/12 11:21:00 PO No Longer Active Daphne Tello 04/15/2012 [facility] naloxone 0.04 mg, 0.1 mL, Rout e: IVP, Drug form: INJ, Q2MIN, PRN Narcotic Reversal, Start date: 04/15/12 11:12:00, Duration: 8 doses or times, Stop date: 04/15/12 19:00:00 IVP No Longer Active W[place]all 04/15/2012 [facility] ondansetron 4 mg, 2 mL, Route: IVP, Drug form: INJ, ONCE, PRN Nausea & Vomiting, Start date: 04/15/12 11:12:00 IVP No Longer Active Delacruz 04/15/2012 [facility] hydrALAZINE 5 mg, 0.25 mL, Rou te: IVP, Drug form: INJ, Q5Min, PRN Elevated BP, Start date: 04/15/12 11:12:00, Duration: 4 doses or times, Stop date: Limited # of times IVP No Longer Active [place] 04/15/2012 [facility] flumazenil 0.2 mg, 2 mL, Route : IVP, Drug form: INJ, PRN, PRN Benzodiazepine Reversal, Initial dose, Start date: 04/15/12 11:12:00, Stop date: 04/15/12 19:00:00 IVP No Longer Active [place] 04/15/2012 [facility] Benadryl 25 mg, 0.5 mL, Route: IVP, Drug form: INJ, ONCE, PRN Itching, Start date: 04/15/12 11:08:00 IVP No Longer Active Delacruz 04/15/2012 [facility] Phenergan 12.5 mg, 0.5 mL, Rou te: IM, Drug form: INJ, Q4H, PRN Nausea & Vomiting, Start date: 04/15/12 11:06:00, Duration: 30 day, Stop date: 05/15/12 11:05:00 IM No Longer Active Jayme 04/15/2012 [facility] azelastine nasal 0.1% (137 mcg/inh) spray 1 inhalation, Route: NASAL, Drug Form: SPRY, BID, PRN as needed for allergy symptoms, Start date: 04/15/12 11:02:00, Duration: 30 day, Stop date: 05/15/12 11:01:00 NASAL No Longer Active Blair Jacobo 04/15/2012 [facility] Ventolin HFA 90 mcg/inh inhalation aerosol with adapte r 2 inhalation, Route: INHALATION, Drug Form: AERO/A, QID, PRN as needed for wheezing, Start date: 04/15/12 11:02:00, Duration: 30 day, Stop date: 05/15/12 11:01:00 INHALATION No Longer Active Blair Jacobo 04/15/2012 [facility] promethazine 12.5 mg, 0.5 mL, Route: IM, Drug form: INJ, Q4H, PRN Nausea & Vomiting, Start date: 04/15/12 11:00:00, Duration: 30 day, Stop date: 05/15/12 10:59:00 IM No Longer Active Blair Jacobo 04/15/2012 [facility] docusate 100 mg, 1 cap, Route: PO, Drug form: CAP, BID, PRN Constipation, Start date: 04/15/12 11:00:00, Duration: 30 day, Stop date: 05/15/12 10:59:00 PO No Longer Active Blair Jacobo 04/15/2012 [facility] zolpidem 5 mg, Route: PO, Drug form: TAB, Bedtime, PRN Insomnia, Start date: 04/15/12 11:00:00, Duration: 30 day, Stop date: 05/15/12 10:59:00 PO No Longer Active Blair Jacobo 04/15/2012 [facility] Dextrose 5% in Lactated Ringers IV 1,000 mL 1,000 mL, Rate: 125 ml/hr, Infuse over: 8 hr, Route: IV, Dosing Weight 56.364 kg, Total Volume: 1,000, Start date: 04/15/12 11:00:00, Duration: 30 day, Stop date: 05/15/12 10:59:00 IV No Longer Active Blair Jacobo 04/15/2012 [facility] acetaminophen-codeine #3 1 tab , Route: PO, Drug Form: TAB, Q4H, PRN Pain Score 1-3, Start date: 04/15/12 11:00:00, Duration: 30 day, Stop date: 05/15/12 10:59:00 PO No Longer Active Blair Jacobo 04/15/2012 [facility] morphine Sulfate 4 mg, 1 mL, R oute: IVP, Drug form: INJ, Q3H, PRN Pain Score 4-6, Start date: 04/15/12 11:00:00, Duration: 30 day, Stop date: 05/15/12 10:59:00 IVP No Longer Active Blair hanna 04/15/2012 [facility] acetaminophen-hydrocodone 325 mg-5 mg oral tablet 2 tab, Route: PO, Drug Form: TAB, Q4H, PRN Pain Score 4-6, Start date: 04/15/12 11:00:00, Duration: 30 day, Stop date: 05/15/12 10:59:00 PO No Longer Active Blair Jacobo 04/15/2012 [facility] morphine Sulfate 2 mg, 1 mL, R oute: IVP, Drug form: INJ, Q5Min, PRN Pain Score 4-6, Start date: 04/15/12 10:58:00, Duration: 8 doses or times, Stop date: Limited # of times IVP No Longer Active Salvador 04/15/2012 [facility] meperidine 12.5 mg, 0.5 mL, [place]: IVP, Drug form: INJ, Q30Min, PRN Other -See Comment, For shivering, Start date: 04/15/12 10:58:00, Duration: 2 doses or times, Stop date: 04/15/12 18:00:00 IVP No Longer Active Salvador 04/15/2012 [facility] flumazenil 0.2 mg, 2 mL, Route : IVP, Drug form: INJ, PRN, PRN Benzodiazepine Reversal, Initial dose, Start date: 04/15/12 10:58:00, Stop date: 04/15/12 18:00:00 IVP No Longer Active Salvador 04/15/2012 [facility] naloxone 0.04 mg, 0.1 mL, Rout e: IVP, Drug form: INJ, Q2MIN, PRN Narcotic Reversal, Start date: 04/15/12 10:58:00, Duration: 8 doses or times, Stop date: 04/15/12 18:00:00 IVP No Longer Active Salvador 04/15/2012 [facility] ondansetron 4 mg, 2 mL, Route: IVP, Drug form: INJ, ONCE, PRN Nausea & Vomiting, Start date: 04/15/12 10:58:00 IVP No Longer Active Salvador 04/15/2012 [facility] Xopenex 1.25 mg, Route: NEB, O NCE, Start date: 04/15/12 7:17:00, Stop date: 04/15/12 7:17:00 NEB No Longer Active Lex 04/15/2012 [facility] Lactated Ringers Injection IV 1,000 mL 1,000 mL, Rate: 25 ml/hr, Infuse over: 40 hr, Route: IV, Dosing Weight 56.364 kg, Total Volume: 1,000, Start date: 04/15/12 6:58:00, Duration: 30 day, Stop date: 05/15/12 6:57:00 IV No Longer Active Salvador 04/15/2012 [facility] Acidophilus Probiotic Blend oral capsule 1 tab, PO, Daily, Substitution Allowed, Soft Stop PO Active 04/12/2012 [facility] Xopenex 0.63 mg/3 mL inhalation solution 0.63 mg, 3 ml, NEB, Q8H, PRN, 24 ea, as needed for wheezing, Substitution Allowed, SOLN NEB Active 04/12/2012 [facility] Osteo Bi-Flex 1 tab, PO, Daily , Substitution Allowed, Soft Stop PO Active 04/12/2012 [facility] Mobic 15 mg oral tablet 15 mg, 1 tab, PO, Daily, 30 tab, Substitution Allowed, TAB PO Active 04/12/2012 [facility] Centrum Silver Women's 1 tab, PO, Substitution Allowed, Soft Stop PO Active 04/12/2012 [facility] Vitamin D3 1000 intl units oral capsule 1,000 IntlUnit, 1 cap, PO, Daily, 75 cap, Substitution Allowed, CAP PO Active 04/12/2012 [facility] Mucinex 600 mg oral tablet, extended release 600 mg, 1 tab, PO, Q12H, PRN, congestion, Substitution Allowed PO Active 04/12/2012 [facility] azelastine nasal 137 mcg/inh spray 1 spray, NASAL, BID, PRN, as needed for allergy symptoms, Substitution Allowed, Soft Stop NASAL Active Pinto Donnell 04/12/2012 [facility] simvastatin 1 tab(s) orally Active 20 mg orally once a day (at bedtime) [facility] 12/29/2011 [facility] Duexis 1 tab(s) orally Active 26.6 mg-800 mg orally 3 times a day [facility] Calcium 600+D 1 tab(s) orally Active 600 mg-200 units orally 3 times a day [facility] Xopenex 3 ml by nebulizer Active 0.63 mg/3 mL by nebuliz er bid [facility] omega-3 polyunsaturated fatty acids 2 cap(s) orally Active ethyl esters 1000 mg orally 2 times a day [facility] Spiriva inhale one via handiha ler one time daily inhaled Active 18MCG inhaled QD [facility] Diovan 1 tab(s) orally Active 80 mg orally once a day [facility] Zocor 1 tab(s) orally Active 20 mg orally once a day (at bedtime) [facility] Linda-C 1 tab(s) orally Active 1000 mg orally once a d ay [facility] omega-3 polyunsaturated fatty acids 2 cap(s) orally Active ethyl esters 1000 mg orally 2 times a day [facility] Linda-C 1 tab(s) orally Active 1000 mg orally once a d ay [facility] Calcium 600+D 1 tab(s) orally Active 600 mg-200 units orally 3 times a day [facility] Zocor 1 tab(s) orally Active 20 mg orally once a day (at bedtime) [facility] Duexis 1 tab(s) orally Active 26.6 mg-800 mg orally 3 times a day [facility] levothyroxine 1 tab(s) orally Active 75 mcg (0.075 mg) orall y once a day [facility] Spiriva inhale one via handiha ler one time daily inhaled Active 18MCG inhaled QD [facility] Xopenex 3 ml by nebulizer Active 0.63 mg/3 mL by nebuliz er bid [facility] Boniva 1 tab(s) orally Active 150 mg orally once a mo nth [facility] Diovan 1 tab(s) orally Active 80 mg orally once a day [facility] Linda-C 1 tab(s) orally Active 1000 mg orally once a d ay [facility] Xopenex 3 ml by nebulizer Active 0.63 mg/3 mL by nebuliz er bid [facility] Zocor 1 tab(s) orally Active 20 mg orally once a day (at bedtime) [facility] Diovan 1 tab(s) orally Active 80 mg orally once a day [facility] Calcium 600+D 1 tab(s) orally Active 600 mg-200 units orally 3 times a day [facility] Mazar[facility]os omega-3 polyunsaturated fatty acids 2 cap(s) orally Active ethyl esters 1000 mg orally 2 times a day [facility] Xopenex 3 ml by nebulizer Active 0.63 mg/3 mL by nebuliz er bid [facility] Boniva TAKE 1 TAB(S) ONCE A MO NTH ORALLY NA Active 15 0MG DELILAH Mazariegos levothyroxine 1 tab(s) orally Active 0.075MG orally once a d ay [facility] Spiriva INHALE ONE VIA HANDIHA LER ONE TIME DAILY NA Active 18 MCG [facility] Mazariegos Advair Diskus 250-50 MCG/DOSE Inhalation Aerosol Powder Breath Activated (Active) Active [facility] Zocor 20 MG Oral Tablet (Acti ve) Active [facility] Boniva 150 MG Oral Tablet (Ac tive) Active [facility] Mobic 15 MG Oral Tablet (Acti ve) Active [facility] Allergies, Adverse Reactions, Alerts Substance Category Reaction Severity Reaction type Status Date Reported Comments Source N.K.D.A. Adverse Reaction Info Not Available Adverse Reaction 01/24/2013 [facility] "RAW SHRIMP" Assertion Propensity to adverse reacti ons to food Active [facility] Food Shrimp Assertion Drug allergy Active [facility] No Known Drug Allergies drug a llergy drug aller gy Active [facility] Immunizations Immunization Date Given Site Status Last Updated Comments Source Hx influenza vaccine-unspecified 05/14/2017 completed [facility], [facility] [place],[facility] influenza virus vaccine, inactivated 07/02/2014 completed [facility], OPI D [place],[facility] Hx pneumococcal vaccine 2011 completed [facility], [facility] [place],[facility] Results Order Name Results Value Reference Range Date Interpretation Comments Source CHEM PANEL Glucose Lvl 71 70 - 99 06/06/2019 [facility] CHEM PANEL BUN 14 7 - 22 06/06/2019 [facility] CHEM PANEL Creatinine Lvl 0.55 0.50 - 1.40 06/06/2019 [facility] CHEM PANEL Sodium Lvl 129 135 - 145 06/06/2019 [facility] CHEM PANEL Potassium Lvl 4.9 3.5 - 5.1 06/06/2019 [facility] CHEM PANEL Chloride Lvl 98 95 - 109 06/06/2019 [facility] CHEM PANEL CO2 23 24 - 32 06/06/2019 [facility] CHEM PANEL Calcium Lvl 8.8 8.5 - 10.5 06/06/2019 [facility] CHEM PANEL eGFR 93 06/06/2019 Result Comment: The eGFR is calculated using the CKD-EPI formula. In most young, healthy individuals the eGFR will be >90 mL/min/1.73m2. The eGFR declines with age. An eGFR of 60-89 may be normal in some populations, particularly the elderly, for whom the CKD-EPI formula has not been extensively validated. Use of the eGFR is not recommended in the following populations:

Individuals with unstable creatinine concentrations, including patients and those with serious co-morbid conditions.

Patients with extremes in muscle mass or diet.

The data above are obtained from the National Kidney Disease Education Program (NKDEP) which additionally recommends that when the eGFR is used in patients with extremes of body mass index for purposes of drug dosing, the eGFR should be multiplied by the estimated BMI. [facility] CHEM PANEL AGAP 12.9 10.0 - 20.0 06/06/2019 [facility] HEMATOLOGY Hgb 12.9 12.0 - 16.0 06/06/2019 [facility] HEMATOLOGY Hct 39.1 36.0 - 48.0 06/06/2019 [facility] MOLECULAR DIAGNOSTIC Influenza B PCR Negative (07/22/17 6:00 AM) Negative 07/22/2017 [facility] MOLECULAR DIAGNOSTIC Influenza A PCR Negative (07/22/17 6:00 AM) Negative 07/22/2017 [facility] MOLECULAR DIAGNOSTIC RSV PCR Negative (07/22/17 6:00 AM) Negative 07/22/2017 [facility] MOLECULAR DIAGNOSTIC Source Respirat ory Panel PCR [employer] Swab (07/22/17 6:00 AM) 07/22/2017 [facility] CHEM PANEL eGFR 105 07/22/2017 Result Comment: The eGFR is calculated using the CKD-EPI formula. In most young, healthy individuals the eGFR will be >90 mL/min/1.73m2. The eGFR declines with age. An eGFR of 60-89 may be normal in some populations, particularly the elderly, for whom the CKD-EPI formula has not been extensively validated. Use of the eGFR is not recommended in the following populations:

Individuals with unstable creatinine concentrations, including patients and those with serious co-morbid conditions.

Patients with extremes in muscle mass or diet.

The data above are obtained from the National Kidney Disease Education Program (NKDEP) which additionally recommends that when the eGFR is used in patients with extremes of body mass index for purposes of drug dosing, the eGFR should be multiplied by the estimated BMI. [facility] CHEM PANEL CO2 21 24 - 32 07/22/2017 [facility] CHEM PANEL Calcium Lvl 7.9 8.5 - 10.5 07/22/2017 [facility] CHEM PANEL Potassium Lvl 3.8 3.5 - 5.1 07/22/2017 [facility] CHEM PANEL Chloride Lvl 106 95 - 109 07/22/2017 [facility] CHEM PANEL Creatinine Lvl 0.40 0.50 - 1.40 07/22/2017 [facility] CHEM PANEL Sodium Lvl 136 135 - 145 07/22/2017 [facility] CHEM PANEL BUN 15 7 - 22 07/22/2017 [facility] CHEM PANEL Glucose Lvl 139 70 - 99 07/22/2017 [facility] CHEM PANEL AGAP 12.8 10.0 - 20.0 07/22/2017 [facility] HEMATOLOGY Lymphocytes 13.0 20.0 - 40.0 07/22/2017 [facility] HEMATOLOGY Segs 83.1 45.0 - 75.0 07/22/2017 [facility] HEMATOLOGY Monocytes # 0.2 0.0 - 0.8 07/22/2017 [facility] HEMATOLOGY Monocytes 3.9 2.0 - 12.0 07/22/2017 [facility] HEMATOLOGY Segs-Bands # 5.4 1.5 - 8.1 07/22/2017 [facility] HEMATOLOGY Lymphocytes # 0.8 1.0 - 5.5 07/22/2017 [facility] HEMATOLOGY RBC 3.83 4.20 - 5.40 07/22/2017 [facility] HEMATOLOGY Hgb 10.9 12.0 - 16.0 07/22/2017 [facility] HEMATOLOGY Platelet 244 133 - 450 07/22/2017 [facility] HEMATOLOGY RDW 13.4 11.5 - 14.5 07/22/2017 [facility] HEMATOLOGY Hct 32.0 36.0 - 48.0 07/22/2017 [facility] HEMATOLOGY MPV 8.1 7.4 - 10.4 07/22/2017 [facility] HEMATOLOGY MCHC 34.1 32.0 - 36.0 07/22/2017 [facility] HEMATOLOGY MCH 28.5 27.0 - 31.0 07/22/2017 [facility] HEMATOLOGY MCV 83.5 80.0 - 98.0 07/22/2017 [facility] HEMATOLOGY WBC 6.5 3.7 - 10.4 07/22/2017 [facility] HEMATOLOGY MPV 8.7 7.4 - 10.4 07/21/2017 [facility] HEMATOLOGY Platelet 259 133 - 450 07/21/2017 [facility] HEMATOLOGY MCH 28.7 27.0 - 31.0 07/21/2017 [facility] HEMATOLOGY MCV 83.4 80.0 - 98.0 07/21/2017 [facility] HEMATOLOGY Hct 33.3 36.0 - 48.0 07/21/2017 [facility] HEMATOLOGY Hgb 11.5 12.0 - 16.0 07/21/2017 [facility] HEMATOLOGY RDW 13.0 11.5 - 14.5 07/21/2017 [facility] HEMATOLOGY MCHC 34.4 32.0 - 36.0 07/21/2017 [facility] HEMATOLOGY RBC 3.99 4.20 - 5.40 07/21/2017 [facility] HEMATOLOGY WBC 4.1 3.7 - 10.4 07/21/2017 [facility] HEMATOLOGY Monocytes # 0.3 0.0 - 0.8 07/21/2017 [facility] HEMATOLOGY Segs 72.3 45.0 - 75.0 07/21/2017 [facility] HEMATOLOGY Lymphocytes 21.1 20.0 - 40.0 07/21/2017 [facility] HEMATOLOGY Monocytes 6.6 2.0 - 12.0 07/21/2017 [facility] HEMATOLOGY Segs-Bands # 3.0 1.5 - 8.1 07/21/2017 [facility] HEMATOLOGY Lymphocytes # 0.9 1.0 - 5.5 07/21/2017 [facility] CARDIAC ENZYMES BNP 118 <=100 pg/mL 07/21/2017 [facility] CHEM PANEL Magnesium Lvl 2.1 1.8 - 2.4 07/21/2017 [facility] ELECTROLYTES CO2 22 24 - 32 07/21/2017 [facility] ELECTROLYTES AGAP 14.1 10.0 - 20.0 07/21/2017 [facility] ELECTROLYTES Calcium Lvl 8.3 8.5 - 10.5 07/21/2017 [facility] ELECTROLYTES B/C Ratio 19 6 - 25 07/21/2017 [facility] ELECTROLYTES Total Protein 6.5 6.4 - 8.4 07/21/2017 [facility] ELECTROLYTES Creatinine Lvl 0.4 7 0.50 - 1.40 07/21/2017 [facility] ELECTROLYTES Sodium Lvl 134 135 - 145 07/21/2017 [facility] ELECTROLYTES Potassium Lvl 4.1 3.5 - 5.1 07/21/2017 [facility] ELECTROLYTES Chloride Lvl 102 95 - 109 07/21/2017 [facility] ELECTROLYTES Albumin Lvl 3.3 3.5 - 5.0 07/21/2017 [facility] ELECTROLYTES A/G Ratio 1.0 0.7 - 1.6 07/21/2017 [facility] ELECTROLYTES ALT 21 0 - 65 07/21/2017 [facility] ELECTROLYTES Alk Phos 62 39 - 136 07/21/2017 [facility] ELECTROLYTES AST 21 0 - 37 07/21/2017 [facility] ELECTROLYTES Globulin 3.2 2.7 - 4.2 07/21/2017 [facility] ELECTROLYTES BUN 9 7 - 22 07/21/2017 [facility] ELECTROLYTES Bili Total 0.5 0.2 - 1.3 07/21/2017 [facility] ELECTROLYTES eGFR 99 07/21/2017 Result Comment: The eGFR is calculated using the CKD-EPI formula. In most young, healthy individuals the eGFR will be >90 mL/min/1.73m2. The eGFR declines with age. An eGFR of 60-89 may be normal in some populations, particularly the elderly, for whom the CKD-EPI formula has not been extensively validated. Use of the eGFR is not recommended in the following populations:

Individuals with unstable creatinine concentrations, including patients and those with serious co-morbid conditions.

Patients with extremes in muscle mass or diet.

The data above are obtained from the National Kidney Disease Education Program (NKDEP) which additionally recommends that when the eGFR is used in patients with extremes of body mass index for purposes of drug dosing, the eGFR should be multiplied by the estimated BMI. [facility] ELECTROLYTES Glucose Lvl 159 70 - 99 07/21/2017 [facility] HEMATOLOGY Monocytes 3.4 2.0 - 12.0 07/21/2017 [facility] HEMATOLOGY Monocytes # 0.1 0.0 - 0.8 07/21/2017 [facility] HEMATOLOGY Lymphocytes # 0.4 1.0 - 5.5 07/21/2017 [facility] HEMATOLOGY Segs-Bands # 1.1 1.5 - 8.1 07/21/2017 [facility] HEMATOLOGY Basophils 0.2 0.0 - 1.0 07/21/2017 [facility] HEMATOLOGY Lymphocytes 25.0 20.0 - 40.0 07/21/2017 [facility] HEMATOLOGY Segs 71.4 45.0 - 75.0 07/21/2017 [facility] HEMATOLOGY MCHC 34.0 32.0 - 36.0 07/21/2017 [facility] HEMATOLOGY RDW 13.0 11.5 - 14.5 07/21/2017 [facility] HEMATOLOGY Platelet 235 133 - 450 07/21/2017 [facility] HEMATOLOGY MPV 8.4 7.4 - 10.4 07/21/2017 [facility] HEMATOLOGY RBC 4.18 4.20 - 5.40 07/21/2017 [facility] HEMATOLOGY Hgb 11.7 12.0 - 16.0 07/21/2017 [facility] HEMATOLOGY Hct 34.5 36.0 - 48.0 07/21/2017 [facility] HEMATOLOGY MCV 82.6 80.0 - 98.0 07/21/2017 [facility] HEMATOLOGY MCH 28.1 27.0 - 31.0 07/21/2017 [facility] HEMATOLOGY WBC 1.6 3.7 - 10.4 07/21/2017 [facility] URINE CHEM U Osmolality 438 300 - 800 07/21/2017 [facility] URINE CHEM U Sodium 16 07/21/2017 [facility] CARDIAC ENZYMES Total CK 136 12 - 191 07/21/2017 [facility] CARDIAC ENZYMES BNP 128 <=100 pg/mL 07/21/2017 [facility] CARDIAC ENZYMES Troponin-I <0.02 0.00 - 0.40 07/21/2017 [facility] CHEM PANEL Osmolality 274 280 - 300 07/21/2017 [facility] CARDIAC ENZYMES CK MB Index 0.9 0.0 - 2.5 07/20/2017 [facility] CARDIAC ENZYMES Troponin-I <0.02 0.00 - 0.40 07/20/2017 [facility] CARDIAC ENZYMES Total CK 141 12 - 191 07/20/2017 [facility] CARDIAC ENZYMES CK MB 1.2 0.5 - 3.6 07/20/2017 [facility] CHEM PANEL eGFR 91 07/20/2017 Result Comment: The eGFR is calculated using the CKD-EPI formula. In most young, healthy individuals the eGFR will be >90 mL/min/1.73m2. The eGFR declines with age. An eGFR of 60-89 may be normal in some populations, particularly the elderly, for whom the CKD-EPI formula has not been extensively validated. Use of the eGFR is not recommended in the following populations:

Individuals with unstable creatinine concentrations, including patients and those with serious co-morbid conditions.

Patients with extremes in muscle mass or diet.

The data above are obtained from the National Kidney Disease Education Program (NKDEP) which additionally recommends that when the eGFR is used in patients with extremes of body mass index for purposes of drug dosing, the eGFR should be multiplied by the estimated BMI. [facility] CHEM PANEL AGAP 15.0 10.0 - 20.0 07/20/2017 [facility] CHEM PANEL B/C Ratio 11 6 - 25 07/20/2017 [facility] CHEM PANEL Globulin 3.5 2.7 - 4.2 07/20/2017 [facility] CHEM PANEL A/G Ratio 1.0 0.7 - 1.6 07/20/2017 [facility] CHEM PANEL AST 35 0 - 37 07/20/2017 [facility] CHEM PANEL ALT 25 0 - 65 07/20/2017 [facility] CHEM PANEL Alk Phos 67 39 - 136 07/20/2017 [facility] CHEM PANEL Bili Total 0.3 0.2 - 1.3 07/20/2017 [facility] CHEM PANEL Total Protein 7.0 6.4 - 8.4 07/20/2017 [facility] CHEM PANEL Albumin Lvl 3.5 3.5 - 5.0 07/20/2017 [facility] CHEM PANEL CO2 22 24 - 32 07/20/2017 [facility] CHEM PANEL Calcium Lvl 8.9 8.5 - 10.5 07/20/2017 [facility] CHEM PANEL Chloride Lvl 96 95 - 109 07/20/2017 [facility] CHEM BANNER Creatinine Lvl 0.61 0.50 - 1.40 07/20/2017 [facility] CHEM PANEL Sodium Lvl 129 135 - 145 07/20/2017 [facility] CHEM PANEL Potassium Lvl 4.0 3.5 - 5.1 07/20/2017 [facility] CHEM PANEL Glucose Lvl 156 70 - 99 07/20/2017 [facility] CHEM PANEL BUN 7 7 - 22 07/20/2017 [facility] CHEM PANEL Lactic Acid Lvl 1.5 0.5 - 2.2 07/20/2017 [facility] HEMATOLOGY Eosinophils 0.0 0.0 - 4.0 07/20/2017 [facility] HEMATOLOGY Basophils 0.2 0.0 - 1.0 07/20/2017 [facility] HEMATOLOGY Eosinophils # 0.0 0.0 - 0.5 07/20/2017 [facility] HEMATOLOGY Basophils # 0.0 0.0 - 0.2 07/20/2017 [facility] CHEM PANEL eGFR 87 04/05/2017 Result Comment: The eGFR is calculated using the CKD-EPI formula. In most young, healthy individuals the eGFR will be >90 mL/min/1.73m2. The eGFR declines with age. An eGFR of 60-89 may be normal in some populations, particularly the elderly, for whom the CKD-EPI formula has not been extensively validated. Use of the eGFR is not recommended in the following populations:

Individuals with unstable creatinine concentrations, including patients and those with serious co-morbid conditions.

Patients with extremes in muscle mass or diet.

The data above are obtained from the National Kidney Disease Education Program (NKDEP) which additionally recommends that when the eGFR is used in patients with extremes of body mass index for purposes of drug dosing, the eGFR should be multiplied by the estimated BMI. [facility] POC Creatinine 0.7 0.5 - 1.4 04/05/2017 [facility] eGFR 97 10/16/2016 Result Comment: The eGFR is calculated using the CKD-EPI formula. In most young, healthy individuals the eGFR will be >90 mL/min/1.73m2. The eGFR declines with age. An eGFR of 60-89 may be normal in some populations, particularly the elderly, for whom the CKD-EPI formula has not been extensively validated. Use of the eGFR is not recommended in the following populations:

Individuals with unstable creatinine concentrations, including patients and those with serious co-morbid conditions.

Patients with extremes in muscle mass or diet.

The data above are obtained from the National Kidney Disease Education Program (NKDEP) which additionally recommends that when the eGFR is used in patients with extremes of body mass index for purposes of drug dosing, the eGFR should be multiplied by the estimated BMI. [facility] CHEM PANEL BUN 7 7 - 22 10/16/2016 [facility] CHEM PANEL Glucose Lvl 85 70 - 99 10/16/2016 [facility] CHEM PANEL Creatinine Lvl 0.50 0.50 - 1.40 10/16/2016 [facility] CHEM PANEL Sodium Lvl 129 135 - 145 10/16/2016 [facility] CHEM PANEL CO2 20 24 - 32 10/16/2016 [facility] CHEM PANEL Total Protein 6.4 6.4 - 8.4 10/16/2016 [facility] CHEM PANEL Calcium Lvl 8.5 8.5 - 10.5 10/16/2016 [facility] CHEM PANEL ALT 20 0 - 65 10/16/2016 [facility] CHEM PANEL Albumin Lvl 3.6 3.5 - 5.0 10/16/2016 [facility] CHEM PANEL Alk Phos 48 39 - 136 10/16/2016 [facility] CHEM PANEL AST 23 0 - 37 10/16/2016 [facility] CHEM PANEL Bili Total 0.8 0.2 - 1.3 10/16/2016 [facility] CHEM PANEL Potassium Lvl 4.2 3.5 - 5.1 10/16/2016 [facility] CHEM PANEL Chloride Lvl 98 95 - 109 10/16/2016 [facility] CHEM PANEL A/G Ratio 1.3 0.7 - 1.6 10/16/2016 [facility] CHEM PANEL Globulin 2.8 2.7 - 4.2 10/16/2016 [facility] CHEM PANEL B/C Ratio 14 6 - 25 10/16/2016 [facility] CHEM PANEL AGAP 15.2 10.0 - 20.0 10/16/2016 [facility] HEMATOLOGY Monocytes # 0.4 0.0 - 0.8 10/16/2016 [facility] HEMATOLOGY Basophils # 0.1 0.0 - 0.2 10/16/2016 [facility] HEMATOLOGY Segs 68.1 45.0 - 75.0 10/16/2016 [facility] HEMATOLOGY Lymphocytes # 1.4 1.0 - 5.5 10/16/2016 [facility] HEMATOLOGY Eosinophils 0.4 0.0 - 4.0 10/16/2016 [facility] HEMATOLOGY Monocytes 7.1 2.0 - 12.0 10/16/2016 [facility] HEMATOLOGY Lymphocytes 23.5 20.0 - 40.0 10/16/2016 [facility] HEMATOLOGY Segs-Bands # 4.0 1.5 - 8.1 10/16/2016 [facility] HEMATOLOGY Basophils 0.9 0.0 - 1.0 10/16/2016 [facility] HEMATOLOGY Hgb 13.3 12.0 - 16.0 10/16/2016 [facility] HEMATOLOGY Hct 38.1 36.0 - 48.0 10/16/2016 [facility] HEMATOLOGY WBC 5.9 3.7 - 10.4 10/16/2016 [facility] HEMATOLOGY RBC 4.67 4.20 - 5.40 10/16/2016 [facility] HEMATOLOGY MPV 8.0 7.4 - 10.4 10/16/2016 [facility] HEMATOLOGY RDW 13.5 11.5 - 14.5 10/16/2016 [facility] HEMATOLOGY Platelet 292 133 - 450 10/16/2016 [facility] HEMATOLOGY MCH 28.4 27.0 - 31.0 10/16/2016 [facility] HEMATOLOGY MCHC 34.9 32.0 - 36.0 10/16/2016 [facility] HEMATOLOGY MCV 81.5 80.0 - 98.0 10/16/2016 [facility] ELECTROLYTES Sodium Lvl 130 135 - 145 10/16/2016 [facility] URINE CHEM U Sodium 22 10/15/2016 [facility] URINE CHEM U Osmolality 109 300 - 800 10/15/2016 [facility] CHEM PANEL Osmolality 256 280 - 300 10/15/2016 [facility] ELECTROLYTES Sodium Lvl 124 135 - 145 10/15/2016 [facility] ELECTROLYTES AGAP 11.6 10.0 - 20.0 10/15/2016 [facility] ELECTROLYTES eGFR 104 10/15/2016 Result Comment: The eGFR is calculated using the CKD-EPI formula. In most young, healthy individuals the eGFR will be >90 mL/min/1.73m2. The eGFR declines with age. An eGFR of 60-89 may be normal in some populations, particularly the elderly, for whom the CKD-EPI formula has not been extensively validated. Use of the eGFR is not recommended in the following populations:

Individuals with unstable creatinine concentrations, including patients and those with serious co-morbid conditions.

Patients with extremes in muscle mass or diet.

The data above are obtained from the National Kidney Disease Education Program (NKDEP) which additionally recommends that when the eGFR is used in patients with extremes of body mass index for purposes of drug dosing, the eGFR should be multiplied by the estimated BMI. [facility] ELECTROLYTES Calcium Lvl 7.5 8.5 - 10.5 10/15/2016 [facility] ELECTROLYTES Chloride Lvl 94 95 - 109 10/15/2016 [facility] ELECTROLYTES Potassium Lvl 3.6 3.5 - 5.1 10/15/2016 [facility] ELECTROLYTES BUN 7 7 - 22 10/15/2016 [facility] ELECTROLYTES Creatinine Lvl 0.4 1 0.50 - 1.40 10/15/2016 [facility] ELECTROLYTES Glucose Lvl 101 70 - 99 10/15/2016 [facility] ELECTROLYTES CO2 21 24 - 32 10/15/2016 [facility] HEMATOLOGY Hct 35.4 36.0 - 48.0 10/15/2016 [facility] HEMATOLOGY Hgb 12.3 12.0 - 16.0 10/15/2016 [facility] HEMATOLOGY MCH 28.3 27.0 - 31.0 10/15/2016 [facility] HEMATOLOGY MCV 81.3 80.0 - 98.0 10/15/2016 [facility] HEMATOLOGY RBC 4.35 4.20 - 5.40 10/15/2016 [facility] HEMATOLOGY WBC 4.9 3.7 - 10.4 10/15/2016 [facility] HEMATOLOGY Platelet 280 133 - 450 10/15/2016 [facility] HEMATOLOGY RDW 13.1 11.5 - 14.5 10/15/2016 [facility] HEMATOLOGY MPV 8.3 7.4 - 10.4 10/15/2016 [facility] HEMATOLOGY MCHC 34.8 32.0 - 36.0 10/15/2016 [facility] HEMATOLOGY Eosinophils # 0.1 0.0 - 0.5 10/15/2016 [facility] HEMATOLOGY Segs-Bands # 2.6 1.5 - 8.1 10/15/2016 [facility] HEMATOLOGY Monocytes # 0.5 0.0 - 0.8 10/15/2016 [facility] HEMATOLOGY Lymphocytes # 1.6 1.0 - 5.5 10/15/2016 [facility] HEMATOLOGY Basophils 0.9 0.0 - 1.0 10/15/2016 [facility] HEMATOLOGY Eosinophils 1.6 0.0 - 4.0 10/15/2016 [facility] HEMATOLOGY Segs 54.2 45.0 - 75.0 10/15/2016 [facility] HEMATOLOGY Monocytes 9.7 2.0 - 12.0 10/15/2016 [facility] HEMATOLOGY Lymphocytes 33.6 20.0 - 40.0 10/15/2016 [facility] CHEM PANEL eGFR 107 10/15/2016 Result Comment: The eGFR is calculated using the CKD-EPI formula. In most young, healthy individuals the eGFR will be >90 mL/min/1.73m2. The eGFR declines with age. An eGFR of 60-89 may be normal in some populations, particularly the elderly, for whom the CKD-EPI formula has not been extensively validated. Use of the eGFR is not recommended in the following populations:

Individuals with unstable creatinine concentrations, including patients and those with serious co-morbid conditions.

Patients with extremes in muscle mass or diet.

The data above are obtained from the National Kidney Disease Education Program (NKDEP) which additionally recommends that when the eGFR is used in patients with extremes of body mass index for purposes of drug dosing, the eGFR should be multiplied by the estimated BMI. [facility] CHEM PANEL Potassium Lvl 3.8 3.5 - 5.1 10/15/2016 [facility] CHEM PANEL Glucose Lvl 78 70 - 99 10/15/2016 [facility] CHEM PANEL BUN 6 7 - 22 10/15/2016 [facility] CHEM PANEL Creatinine Lvl 0.37 0.50 - 1.40 10/15/2016 [facility] CHEM PANEL Chloride Lvl 91 95 - 109 10/15/2016 [facility] CHEM PANEL CO2 21 24 - 32 10/15/2016 [facility] CHEM PANEL AGAP 12.8 10.0 - 20.0 10/15/2016 [facility] CHEM PANEL Calcium Lvl 7.1 8.5 - 10.5 10/15/2016 [facility] CHEM PANEL Alk Phos 52 39 - 136 10/14/2016 [facility] CHEM PANEL AST 14 0 - 37 10/14/2016 [facility] CHEM PANEL Bili Total 0.6 0.2 - 1.3 10/14/2016 [facility] CHEM PANEL Globulin 2.6 2.7 - 4.2 10/14/2016 [facility] CHEM PANEL A/G Ratio 1.4 0.7 - 1.6 10/14/2016 [facility] CHEM PANEL ALT 17 0 - 65 10/14/2016 [facility] CHEM PANEL Total Protein 6.2 6.4 - 8.4 10/14/2016 [facility] CHEM PANEL Albumin Lvl 3.6 3.5 - 5.0 10/14/2016 [facility] CHEM PANEL B/C Ratio 20 6 - 25 10/14/2016 [facility] CHEM PANEL Lipase Lvl 111 73 - 393 10/14/2016 [facility] HEMATOLOGY Hgb 12.1 12.0 - 16.0 10/14/2016 [facility] HEMATOLOGY RDW 12.8 11.5 - 14.5 10/14/2016 [facility] HEMATOLOGY MPV 8.1 7.4 - 10.4 10/14/2016 [facility] HEMATOLOGY MCH 28.5 27.0 - 31.0 10/14/2016 [facility] HEMATOLOGY MCHC 35.8 32.0 - 36.0 10/14/2016 [facility] HEMATOLOGY Platelet 315 133 - 450 10/14/2016 [facility] HEMATOLOGY RBC 4.25 4.20 - 5.40 10/14/2016 [facility] HEMATOLOGY MCV 79.7 80.0 - 98.0 10/14/2016 [facility] HEMATOLOGY Hct 33.9 36.0 - 48.0 10/14/2016 [facility] HEMATOLOGY WBC 5.8 3.7 - 10.4 10/14/2016 [facility] HEMATOLOGY Lymphocytes # 2.2 1.0 - 5.5 10/14/2016 [facility] HEMATOLOGY Monocytes # 0.5 0.0 - 0.8 10/14/2016 [facility] HEMATOLOGY Basophils 0.9 0.0 - 1.0 10/14/2016 [facility] HEMATOLOGY Segs-Bands # 3.0 1.5 - 8.1 10/14/2016 [facility] HEMATOLOGY Eosinophils # 0.1 0.0 - 0.5 10/14/2016 [facility] [facility] HEMATOLOGY Basophils # 0.1 0.0 - 0.2 10/14/2016 [facility] HEMATOLOGY Eosinophils 2.4 0.0 - 4.0 10/14/2016 [facility] HEMATOLOGY Segs 50.9 45.0 - 75.0 10/14/2016 [facility] HEMATOLOGY Monocytes 8.7 2.0 - 12.0 10/14/2016 [facility] HEMATOLOGY Lymphocytes 37.1 20.0 - 40.0 10/14/2016 [facility] URINE AND STOOL UA Mucus Few /LPF None Seen /LPF 10/14/2016 [facility] URINE AND STOOL UA Bacteria None Seen (10/14/16 4:39 PM) None Seen 10/14/2016 [facility] URINE AND STOOL UA RBC 3-5 /HPF 0 - 2 10/14/2016 [facility] URINE AND STOOL UA WBC 6-10 /HPF None Seen /HPF 10/14/2016 [facility] URINE AND STOOL UA Sq Epi Rare /LPF Few /LPF 10/14/2016 [facility] URINE AND STOOL UA Spec Grav 1.015 <=1.030 10/14/2016 [facility] URINE AND STOOL UA Turbidity Clear (10/14/16 4:39 PM) Clear 10/14/2016 [facility] URINE AND STOOL UA Color Yellow *NA* (10/14/16 4:39 PM) Yellow 10/14/2016 [facility] URINE AND STOOL UA pH 6.5 5.0 - 8.0 10/14/2016 [facility] URINE AND STOOL UA Nitrite Negative (10/14/16 4:39 PM) Negative 10/14/2016 [facility] URINE AND STOOL UA Urobilinogen 0.2 0.1 - 1.0 10/14/2016 [facility] URINE AND STOOL UA Blood Negative (10/14/16 4:39 PM) Negative 10/14/2016 [facility] URINE AND STOOL UA Leuk Est Negative (10/14/16 4:39 PM) Negative 10/14/2016 [facility] URINE AND STOOL UA Ketones >=80 mg/dL Negative mg/dL 10/14/2016 [facility] URINE AND STOOL UA Glucose Negative mg/dL Negative mg/dL 10/14/2016 [facility] URINE AND STOOL UA Protein Negative mg/dL Negative mg/dL 10/14/2016 [facility] URINE AND STOOL UA Bili Negative *NA* (10/14/16 4:39 PM) Negative 10/14/2016 [facility] URINE CHEM U Sodium 115 10/14/2016 [facility] CHEM PANEL eGFR 98 02/03/2016 Result Comment: The eGFR is calculated using the CKD-EPI formula. In most young, healthy individuals the eGFR will be >90 mL/min/1.73m2. The eGFR declines with age. An eGFR of 60-89 may be normal in some populations, particularly the elderly, for whom the CKD-EPI formula has not been extensively validated. Use of the eGFR is not recommended in the following populations:

Individuals with unstable creatinine concentrations, including patients and those with serious co-morbid conditions.

Patients with extremes in muscle mass or diet.

The data above are obtained from the National Kidney Disease Education Program (NKDEP) which additionally recommends that when the eGFR is used in patients with extremes of body mass index for purposes of drug dosing, the eGFR should be multiplied by the estimated BMI. [facility] CHEM PANEL POC Creatinine 0.5 0.5 - 1.4 02/03/2016 [facility] CHEM PANEL Lipase Lvl 115 73 - 393 01/11/2016 [facility] CHEM PANEL eGFR 66 01/11/2016 Result Comment: The eGFR is calculated using the CKD-EPI formula. In most young, healthy individuals the eGFR will be >90 mL/min/1.73m2. The eGFR declines with age. An eGFR of 60-89 may be normal in some populations, particularly the elderly, for whom the CKD-EPI formula has not been extensively validated. Use of the eGFR is not recommended in the following populations:

Individuals with unstable creatinine concentrations, including patients and those with serious co-morbid conditions.

Patients with extremes in muscle mass or diet.

The data above are obtained from the National Kidney Disease Education Program (NKDEP) which additionally recommends that when the eGFR is used in patients with extremes of body mass index for purposes of drug dosing, the eGFR should be multiplied by the estimated BMI. [facility] CHEM PANEL AST 25 0 - 37 01/11/2016 [facility] CHEM PANEL Alk Phos 64 39 - 136 01/11/2016 [facility] CHEM PANEL Bili Total 0.5 0.2 - 1.3 01/11/2016 [facility] CHEM PANEL Albumin Lvl 3.6 3.5 - 5.0 01/11/2016 [facility] CHEM PANEL ALT 22 0 - 65 01/11/2016 [facility] CHEM PANEL Total Protein 7.0 6.4 - 8.4 01/11/2016 [facility] CHEM PANEL Sodium Lvl 132 135 - 145 01/11/2016 [facility] CHEM PANEL Potassium Lvl 4.6 3.5 - 5.1 01/11/2016 [facility] CHEM PANEL Chloride Lvl 102 95 - 109 01/11/2016 [facility] CHEM PANEL Creatinine Lvl 0.88 0.50 - 1.40 01/11/2016 [facility] CHEM PANEL BUN 13 7 - 22 01/11/2016 [facility] CHEM PANEL Glucose Lvl 75 70 - 99 01/11/2016 [facility] CHEM PANEL Calcium Lvl 8.9 8.5 - 10.5 01/11/2016 [facility] CHEM PANEL CO2 28 24 - 32 01/11/2016 [facility] CHEM PANEL A/G Ratio 1.1 0.7 - 1.6 01/11/2016 [facility] CHEM PANEL AGAP 6.6 10.0 - 20.0 01/11/2016 [facility] CHEM PANEL B/C Ratio 15 6 - 25 01/11/2016 [facility] CHEM PANEL Globulin 3.4 2.0 - 4.0 01/11/2016 [facility] HEMATOLOGY Monocytes # 0.6 0.0 - 0.8 01/11/2016 [facility] HEMATOLOGY Lymphocytes # 1.9 1.0 - 5.5 01/11/2016 [facility] HEMATOLOGY Eosinophils 4.0 0.0 - 4.0 01/11/2016 [facility] HEMATOLOGY Basophils 0.6 0.0 - 1.0 01/11/2016 [facility] HEMATOLOGY Segs-Bands # 2.7 1.5 - 8.1 01/11/2016 [facility] HEMATOLOGY Eosinophils # 0.2 0.0 - 0.5 01/11/2016 [facility] HEMATOLOGY Monocytes 11.1 2.0 - 12.0 01/11/2016 [facility] HEMATOLOGY Lymphocytes 35.4 20.0 - 40.0 01/11/2016 [facility] HEMATOLOGY Segs 48.9 45.0 - 75.0 01/11/2016 [facility] HEMATOLOGY MCH 28.1 27.0 - 31.0 01/11/2016 [facility] HEMATOLOGY MPV 8.0 7.4 - 10.4 01/11/2016 [facility] HEMATOLOGY RDW 13.0 11.5 - 14.5 01/11/2016 [facility] HEMATOLOGY MCV 85.0 80.0 - 98.0 01/11/2016 [facility] HEMATOLOGY MCHC 33.0 32.0 - 36.0 01/11/2016 [facility] HEMATOLOGY Platelet 332 133 - 450 01/11/2016 [facility] HEMATOLOGY WBC 5.4 3.7 - 10.4 01/11/2016 [facility] HEMATOLOGY Hgb 13.2 12.0 - 16.0 01/11/2016 [facility] HEMATOLOGY RBC 4.71 4.20 - 5.40 01/11/2016 [facility] HEMATOLOGY Hct 40.0 36.0 - 48.0 01/11/2016 [facility] CHEM PANEL POC Creatinine 0.8 0.5 - 1.4 01/07/2016 [facility] CHEM PANEL eGFR 74 01/07/2016 Result Comment: The eGFR is calculated using the CKD-EPI formula. In most young, healthy individuals the eGFR will be >90 mL/min/1.73m2. The eGFR declines with age. An eGFR of 60-89 may be normal in some populations, particularly the elderly, for whom the CKD-EPI formula has not been extensively validated. Use of the eGFR is not recommended in the following populations:

Individuals with unstable creatinine concentrations, including patients and those with serious co-morbid conditions.

Patients with extremes in muscle mass or diet.

The data above are obtained from the National Kidney Disease Education Program (NKDEP) which additionally recommends that when the eGFR is used in patients with extremes of body mass index for purposes of drug dosing, the eGFR should be multiplied by the estimated BMI. [facility] CHEM PANEL eGFR 93 01/30/2015 <sup>1</sup>Result Comment: The eGFR is calculated using the CKD-EPI formula. In most young, healthy individuals the eGFR will be >90 mL/min/1.73m2. The eGFR declines with age. An eGFR of 60-89 may be normal in some populations, particularly the elderly, for whom the CKD-EPI formula has not been extensively validated. Use of the eGFR is not recommended in the following populations:& lt;br/>
Individuals with unstable creatinine concentrations, including patients and those with serious co-morbid conditions.

Patients with extremes in muscle mass or diet.

The data above are obtained from the National Kidney Disease Education Program (NKDEP) which additionally recommends that when the eGFR is used in patients with extremes of body mass index for purposes of drug dosing, the eGFR should be multiplied by the estimated BMI. [facility] CHEM PANEL Glucose Lvl 84 70 - 99 01/30/2015 <sup>4</sup>Interpretive Data: Adult ref erence range values reflect the clinical guidelines
of the [place] [employer]. [facility] CHEM PANEL BUN 12 7 - 22 01/30/2015 [facility] CHEM PANEL Chloride Lvl 103 95 - 109 01/30/2015 [facility] CHEM PANEL CO2 26 24 - 32 01/30/2015 [facility] CHEM PANEL Sodium Lvl 139 135 - 145 01/30/2015 [facility] CHEM PANEL Potassium Lvl 3.4 3.5 - 5.1 01/30/2015 [facility] CHEM PANEL Creatinine Lvl 0.6 0.5 - 1.4 01/30/2015 [facility] CHEM PANEL Calcium Lvl 7.7 8.5 - 10.5 01/30/2015 [facility] CHEM PANEL AGAP 13.4 10.0 - 20.0 01/30/2015 [facility] ELECTROLYTES Sodium Lvl 135 135 - 145 01/29/2015 [facility] ELECTROLYTES eGFR 93 01/29/2015 <sup>2</sup>Result Comment: The eGFR is calculated using the CKD-EPI formula. In most young, healthy individuals the eGFR will be >90 mL/min/1.73m2. The eGFR declines with age. An eGFR of 60-89 may be normal in some populations, particularly the elderly, for whom the CKD-EPI formula has not been extensively validated. Use of the eGFR is not recommended in the following populations:& lt;br/>
Individuals with unstable creatinine concentrations, including patients and those with serious co-morbid conditions.

Patients with extremes in muscle mass or diet.

The data above are obtained from the National Kidney Disease Education Program (NKDEP) which additionally recommends that when the eGFR is used in patients with extremes of body mass index for purposes of drug dosing, the eGFR should be multiplied by the estimated BMI. [facility] ELECTROLYTES BUN 13 7 - 22 01/29/2015 [facility] ELECTROLYTES Creatinine Lvl 0.6 0.5 - 1.4 01/29/2015 [facility] ELECTROLYTES Glucose Lvl 122 70 - 99 01/29/2015 <sup>5</sup>Interpretive Data: Adult ref erence range values reflect the clinical guidelines
of the [place] [employer]. [facility] ELECTROLYTES AGAP 14.4 10.0 - 20.0 01/29/2015 [facility] ELECTROLYTES CO2 25 24 - 32 01/29/2015 [facility] ELECTROLYTES Calcium Lvl 8.0 8.5 - 10.5 01/29/2015 [facility] ELECTROLYTES Chloride Lvl 99 95 - 109 01/29/2015 [facility] ELECTROLYTES Potassium Lvl 3.4 3.5 - 5.1 01/29/2015 [facility] TOXICOLOGY Vanco Tr TND 1400 01/28/2015 [facility] TOXICOLOGY Vanco Tr 5.2 01/28/2015 <sup>7</sup>Interpretive Data: Therapeutic Range:
Trough: 10 - 20 ug/mL
Peak: 20 - 40 ug/mL
Potential Toxicity: >80 ug/mL [facility] URINE CHEM U Osmolality 516 300 - 800 01/28/2015 [facility] CHEM PANEL Osmolality 288 280 - 300 01/28/2015 [facility] ELECTROLYTES AGAP 12.7 10.0 - 20.0 01/28/2015 [facility] ELECTROLYTES Calcium Lvl 8.4 8.5 - 10.5 01/28/2015 [facility] ELECTROLYTES Glucose Lvl 126 70 - 99 01/28/2015 <sup>6</sup>Interpretive Data: Adult ref erence range values reflect the clinical guidelines
of the [place] [employer]. [facility] ELECTROLYTES BUN 11 7 - 22 01/28/2015 [facility] ELECTROLYTES CO2 24 24 - 32 01/28/2015 [facility] ELECTROLYTES Creatinine Lvl 0.7 0.5 - 1.4 01/28/2015 [facility] ELECTROLYTES Chloride Lvl 103 95 - 109 01/28/2015 [facility] ELECTROLYTES Sodium Lvl 136 135 - 145 01/28/2015 [facility] ELECTROLYTES Potassium Lvl 3.7 3.5 - 5.1 01/28/2015 [facility] ELECTROLYTES eGFR 88 01/28/2015 <sup>3</sup>Result Comment: The eGFR is calculated using the CKD-EPI formula. In most young, healthy individuals the eGFR will be >90 mL/min/1.73m2. The eGFR declines with age. An eGFR of 60-89 may be normal in some populations, particularly the elderly, for whom the CKD-EPI formula has not been extensively validated. Use of the eGFR is not recommended in the following populations:& lt;br/>
Individuals with unstable creatinine concentrations, including patients and those with serious co-morbid conditions.

Patients with extremes in muscle mass or diet.

The data above are obtained from the National Kidney Disease Education Program (NKDEP) which additionally recommends that when the eGFR is used in patients with extremes of body mass index for purposes of drug dosing, the eGFR should be multiplied by the estimated BMI. [facility] CHEM PANEL Phosphorus 2.6 2.5 - 4.5 01/27/2015 [facility] CHEM PANEL Phosphorus 2.2 2.5 - 4.5 01/27/2015 [facility] CHEM PANEL Magnesium Lvl 1.9 1.8 - 2.4 01/27/2015 [facility] CHEM PANEL Phosphorus 2.5 2.5 - 4.5 01/26/2015 [facility] URINE CHEM U Osmolality 302 300 - 800 01/26/2015 [facility] CHEM PANEL ALT 16 0 - 65 01/26/2015 [facility] CHEM PANEL A/G Ratio 1.0 0.7 - 1.6 01/26/2015 [facility] CHEM PANEL Alk Phos 66 39 - 136 01/26/2015 [facility] CHEM PANEL AST 12 0 - 37 01/26/2015 [facility] CHEM PANEL Bili Total 0.3 0.2 - 1.3 01/26/2015 [facility] CHEM PANEL Total Protein 6.5 6.4 - 8.4 01/26/2015 [facility] CHEM PANEL Albumin Lvl 3.3 3.5 - 5.0 01/26/2015 [facility] CHEM PANEL B/C Ratio 14 6 - 25 01/26/2015 [facility] CHEM PANEL Globulin 3.2 2.0 - 4.0 01/26/2015 [facility] CHEM PANEL Osmolality 278 280 - 300 01/26/2015 [facility] CHEM PANEL Magnesium Lvl 2.0 1.8 - 2.4 01/26/2015 [facility] THYROID PANEL TSH 0.824 0.360 - 3.740 01/26/2015 [facility] THYROID PANEL T3 Free 1.19 2.18 - 3.98 01/26/2015 [facility] THYROID PANEL T4 Free 1.25 0.76 - 1.46 01/26/2015 [facility] BACTERIAL - SEROLOGY MRSA by PCR Negative 10 (01/25/15 9:43 PM) 01/26/2015 <sup>10</sup>Interpretive Da ta: Interpretive Data: The Dilip LightCycler MRSA assay is a qualitative test for the direct detection of nasal colonization with methicillin-resistant Staphyloco ccus aureus (MRSA) to aid in the prevention and control of MRSA infections in healthcare settings. A positive result does not indicate an infection or require treatment. A negative result does not exclude colonization or infection.

The polymerase chain reaction (PCR) assay detects a proprietary sequence indicative of the integration of the SCCmec cassette into the Staphylococcus aureus chromosome, indicating the presence of MRSA DNA. The assay utilizes FDA cleared IVD reagents. Performance characteristics have been verified by the [facility] within the [facility]. The [facility] is authorized under the Clinical Laboratory Improvement Amendment of 1988 (CLIA-88) to perform high complexity testing. [facility] URINE CHEM U Osmolality 83 300 - 800 01/26/2015 [facility] CHEM PANEL Magnesium Lvl 1.6 1.8 - 2.4 01/25/2015 [facility] HEMATOLOGY MPV 7.2 7.4 - 10.4 01/25/2015 [facility] HEMATOLOGY Platelet 286 133 - 450 01/25/2015 [facility] HEMATOLOGY RDW 14.6 11.5 - 14.5 01/25/2015 [facility] HEMATOLOGY MCH 28.8 27.0 - 31.0 01/25/2015 [facility] HEMATOLOGY MCHC 33.6 32.0 - 36.0 01/25/2015 [facility] HEMATOLOGY WBC 5.6 3.7 - 10.4 01/25/2015 [facility] HEMATOLOGY Hgb 10.6 12.0 - 16.0 01/25/2015 [facility] HEMATOLOGY RBC 3.69 4.20 - 5.40 01/25/2015 [facility] HEMATOLOGY MCV 85.8 80.0 - 98.0 01/25/2015 [facility] HEMATOLOGY Hct 31.6 36.0 - 48.0 01/25/2015 [facility] HEMATOLOGY PTT 33.4 22.9 - 35.8 01/25/2015 <sup>9</sup>Interpretive Data: Heparin T herapeutic Range: 57 - 92 Seconds [facility] HEMATOLOGY PT 13.9 12.0 - 14.7 01/25/2015 [facility] HEMATOLOGY INR 1.07 0.85 - 1.17 01/25/2015 <sup>8</sup>Interpretive Data: RECOMMEND ED RANGES FOR PROTIME INR:
2.0-3.0 for most medical and surgical thromboembolic states.
2.5-3.5 for artificial heart valves and recurrent embolism.

INR SHOULD BE USED ONLY FOR PATIENTS ON STABLE ANTICOAGULANT THERAPY. [facility] HEMATOLOGY Basophils # 0.0 0.0 - 0.2 01/25/2015 [facility] HEMATOLOGY Eosinophils # 0.1 0.0 - 0.5 01/25/2015 [facility] HEMATOLOGY Monocytes # 0.5 0.0 - 0.8 01/25/2015 [facility] HEMATOLOGY Lymphocytes # 1.1 1.0 - 5.5 01/25/2015 [facility] HEMATOLOGY Segs 70.8 45.0 - 75.0 01/25/2015 [facility] HEMATOLOGY Segs-Bands # 4.0 1.5 - 8.1 01/25/2015 [facility] HEMATOLOGY Monocytes 8.9 2.0 - 12.0 01/25/2015 [facility] HEMATOLOGY Basophils 0.7 0.0 - 1.0 01/25/2015 [facility] HEMATOLOGY Lymphocytes 18.7 20.0 - 40.0 01/25/2015 [facility] HEMATOLOGY Eosinophils 0.9 0.0 - 4.0 01/25/2015 [facility] URINE AND STOOL UA pH 6.0 5.0 - 8.0 01/25/2015 [facility] URINE AND STOOL UA Protein Negative (01/24/15 8:22 PM) Negative 01/25/2015 [facility] URINE AND STOOL UA Spec Grav >=1.030 *ABN* (01/24/15 8:22 PM) <=1.030 01/25/2015 [facility] URINE AND STOOL UA Turbidity Clear (01/24/15 8:22 PM) Clear 01/25/2015 [facility] URINE AND STOOL UA Ketones 15 mg/dL Negative mg/dL 01/25/2015 [facility] URINE AND STOOL UA Glucose Negative (01/24/15 8:22 PM) Negative 01/25/2015 [facility] URINE AND STOOL UA WBC 0-2 /HPF None Seen /HPF 01/25/2015 [facility] URINE AND STOOL UA Blood Negative (01/24/15 8:22 PM) Negative 01/25/2015 [facility] URINE AND STOOL UA Color Yellow *NA* (01/24/15 8:22 PM) Yellow 01/25/2015 [facility] URINE AND STOOL UA Sq Epi Occasional /LPF Few /LPF 01/25/2015 [facility] URINE AND STOOL UA Urobilinogen 0.2 0.1 - 1.0 01/25/2015 [facility] URINE AND STOOL UA Nitrite Negative (01/24/15 8:22 PM) Negative 01/25/2015 [facility] URINE AND STOOL UA Leuk Est Negative (01/24/15 8:22 PM) Negative 01/25/2015 [facility] URINE AND STOOL UA Bili Negative *NA* (01/24/15 8:22 PM) Negative 01/25/2015 [facility] URINE AND STOOL UA Bacteria Occasional /HPF None Seen /HPF 01/25/2015 [facility] URINE AND STOOL UA Mucus Few /LPF None Seen /LPF 01/25/2015 [facility] URINE AND STOOL UA CaOx Opal Few /HPF None Seen /HPF 01/25/2015 [facility] URINE AND STOOL UA RBC 0-2 /HPF 0 - 2 01/25/2015 [facility] CARDIAC ENZYMES Troponin-I <0.02 0.00 - 0.40 01/24/2015 [facility] CHEM PANEL Lactic Acid Lvl 0.8 0.5 - 2.2 01/24/2015 [facility] CHEM PANEL Procalcitonin Lvl <0.05 ng/mL 0.00 - 0.10 01/24/2015 [facility] HEMATOLOGY MPV 7.7 7.4 - 10.4 01/24/2015 [facility] HEMATOLOGY MCHC 34.2 32.0 - 36.0 01/24/2015 [facility] HEMATOLOGY Platelet 312 133 - 450 01/24/2015 [facility] HEMATOLOGY RDW 14.6 11.5 - 14.5 01/24/2015 [facility] HEMATOLOGY MCH 29.3 27.0 - 31.0 01/24/2015 [facility] HEMATOLOGY Hct 31.1 36.0 - 48.0 01/24/2015 [facility] HEMATOLOGY Hgb 10.6 12.0 - 16.0 01/24/2015 [facility] HEMATOLOGY WBC 6.0 3.7 - 10.4 01/24/2015 [facility] HEMATOLOGY RBC 3.63 4.20 - 5.40 01/24/2015 [facility] HEMATOLOGY MCV 85.8 80.0 - 98.0 01/24/2015 [facility] HEMATOLOGY Basophils 0.6 0.0 - 1.0 01/24/2015 [facility] HEMATOLOGY Segs-Bands # 3.7 1.5 - 8.1 01/24/2015 [facility] HEMATOLOGY Segs 61.2 45.0 - 75.0 01/24/2015 [facility] HEMATOLOGY Lymphocytes 28.5 20.0 - 40.0 01/24/2015 [facility] HEMATOLOGY Lymphocytes # 1.7 1.0 - 5.5 01/24/2015 [facility] HEMATOLOGY Monocytes 8.2 2.0 - 12.0 01/24/2015 [facility] HEMATOLOGY Eosinophils 1.5 0.0 - 4.0 01/24/2015 [facility] HEMATOLOGY Monocytes # 0.5 0.0 - 0.8 01/24/2015 [facility] HEMATOLOGY Basophils # 0.0 0.0 - 0.2 01/24/2015 [facility] HEMATOLOGY Eosinophils # 0.1 0.0 - 0.5 01/24/2015 [facility] CHEM PANEL eGFR 88 01/19/2015 <sup>1</sup>Result Comment: The eGFR is calculated using the CKD-EPI formula. In most young, healthy individuals the eGFR will be >90 mL/min/1.73m2. The eGFR declines with age. An eGFR of 60-89 may be normal in some populations, particularly the elderly, for whom the CKD-EPI formula has not been extensively validated. Use of the eGFR is not recommended in the following populations:& lt;br/>
Individuals with unstable creatinine concentrations, including patients and those with serious co-morbid conditions.

Patients with extremes in muscle mass or diet.

The data above are obtained from the National Kidney Disease Education Program (NKDEP) which additionally recommends that when the eGFR is used in patients with extremes of body mass index for purposes of drug dosing, the eGFR should be multiplied by the estimated BMI. [facility] CHEM PANEL Sodium Lvl 130 135 - 145 01/19/2015 [facility] CHEM PANEL Glucose Lvl 89 70 - 99 01/19/2015 <sup>4</sup>Interpretive Data: Adult ref erence range values reflect the clinical guidelines
of the [place] [employer]. [facility] CHEM PANEL BUN 8 7 - 22 01/19/2015 [facility] CHEM PANEL Creatinine Lvl 0.7 0.5 - 1.4 01/19/2015 [facility] CHEM PANEL Potassium Lvl 4.4 3.5 - 5.1 01/19/2015 [facility] CHEM PANEL Chloride Lvl 98 95 - 109 01/19/2015 [facility] CHEM PANEL Calcium Lvl 8.6 8.5 - 10.5 01/19/2015 [facility] CHEM PANEL CO2 22 24 - 32 01/19/2015 [facility] CHEM PANEL AGAP 14.4 10.0 - 20.0 01/19/2015 [facility] ELECTROLYTES AGAP 12.6 10.0 - 20.0 01/18/2015 [facility] ELECTROLYTES B/C Ratio 13 6 - 25 01/18/2015 [facility] ELECTROLYTES Globulin 3.3 2.0 - 4.0 01/18/2015 [facility] ELECTROLYTES A/G Ratio 0.9 0.7 - 1.6 01/18/2015 [facility] ELECTROLYTES eGFR 88 01/18/2015 <sup>2</sup>Result Comment: The eGFR is calculated using the CKD-EPI formula. In most young, healthy individuals the eGFR will be >90 mL/min/1.73m2. The eGFR declines with age. An eGFR of 60-89 may be normal in some populations, particularly the elderly, for whom the CKD-EPI formula has not been extensively validated. Use of the eGFR is not recommended in the following populations:& lt;br/>
Individuals with unstable creatinine concentrations, including patients and those with serious co-morbid conditions.

Patients with extremes in muscle mass or diet.

The data above are obtained from the National Kidney Disease Education Program (NKDEP) which additionally recommends that when the eGFR is used in patients with extremes of body mass index for purposes of drug dosing, the eGFR should be multiplied by the estimated BMI. [facility] ELECTROLYTES Bili Total 0.5 0.2 - 1.3 01/18/2015 [facility] ELECTROLYTES Glucose Lvl 97 70 - 99 01/18/2015 <sup>5</sup>Interpretive Data: Adult ref erence range values reflect the clinical guidelines
of the [place] [employer]. [facility] ELECTROLYTES BUN 9 7 - 22 01/18/2015 [facility] ELECTROLYTES Creatinine Lvl 0.7 0.5 - 1.4 01/18/2015 [facility] ELECTROLYTES Potassium Lvl 3.6 3.5 - 5.1 01/18/2015 [facility] ELECTROLYTES Total Protein 6.4 6.4 - 8.4 01/18/2015 [facility] ELECTROLYTES Albumin Lvl 3.1 3.5 - 5.0 01/18/2015 [facility] ELECTROLYTES ALT 14 0 - 65 01/18/2015 [facility] ELECTROLYTES AST 8 0 - 37 01/18/2015 [facility] ELECTROLYTES Alk Phos 74 39 - 136 01/18/2015 [facility] ELECTROLYTES Calcium Lvl 8.3 8.5 - 10.5 01/18/2015 [facility] ELECTROLYTES Sodium Lvl 130 135 - 145 01/18/2015 [facility] ELECTROLYTES Chloride Lvl 98 95 - 109 01/18/2015 [facility] ELECTROLYTES CO2 23 24 - 32 01/18/2015 [facility] HEMATOLOGY RDW 15.6 11.5 - 14.5 01/18/2015 [facility] HEMATOLOGY MCHC 32.6 32.0 - 36.0 01/18/2015 [facility] HEMATOLOGY Platelet 314 133 - 450 01/18/2015 [facility] HEMATOLOGY MPV 7.9 7.4 - 10.4 01/18/2015 [facility] HEMATOLOGY Hct 31.8 36.0 - 48.0 01/18/2015 [facility] HEMATOLOGY MCV 87.6 80.0 - 98.0 01/18/2015 [facility] HEMATOLOGY MCH 28.6 27.0 - 31.0 01/18/2015 [facility] HEMATOLOGY RBC 3.64 4.20 - 5.40 01/18/2015 [facility] HEMATOLOGY WBC 6.4 3.7 - 10.4 01/18/2015 [facility] HEMATOLOGY Hgb 10.4 12.0 - 16.0 01/18/2015 [facility] HEMATOLOGY Eosinophils # 0.3 0.0 - 0.5 01/18/2015 [facility] HEMATOLOGY Lymphocytes # 1.1 1.0 - 5.5 01/18/2015 [facility] HEMATOLOGY Monocytes # 0.6 0.0 - 0.8 01/18/2015 [facility] HEMATOLOGY Basophils 0.8 0.0 - 1.0 01/18/2015 [facility] HEMATOLOGY Segs-Bands # 4.3 1.5 - 8.1 01/18/2015 [facility] HEMATOLOGY Monocytes 10.1 2.0 - 12.0 01/18/2015 [facility] HEMATOLOGY Eosinophils 4.9 0.0 - 4.0 01/18/2015 [facility] HEMATOLOGY Segs 66.9 45.0 - 75.0 01/18/2015 [facility] HEMATOLOGY Lymphocytes 17.3 20.0 - 40.0 01/18/2015 [facility] HEMATOLOGY Basophils # 0.1 0.0 - 0.2 01/18/2015 [facility] CHEM PANEL A/G Ratio 1.1 0.7 - 1.6 01/17/2015 [facility] CHEM PANEL B/C Ratio 13 6 - 25 01/17/2015 [facility] CHEM PANEL Globulin 2.7 2.0 - 4.0 01/17/2015 [facility] CHEM PANEL AGAP 14.9 10.0 - 20.0 01/17/2015 [facility] PANEL eGFR 93 01/17/2015 <sup>3</sup>Result Comment: The eGFR is calculated using the CKD-EPI formula. In most young, healthy individuals the eGFR will be >90 mL/min/1.73m2. The eGFR declines with age. An eGFR of 60-89 may be normal in some populations, particularly the elderly, for whom the CKD-EPI formula has not been extensively validated. Use of the eGFR is not recommended in the following populations:& lt;br/>
Individuals with unstable creatinine concentrations, including patients and those with serious co-morbid conditions.

Patients with extremes in muscle mass or diet.

The data above are obtained from the National Kidney Disease Education Program (NKDEP) which additionally recommends that when the eGFR is used in patients with extremes of body mass index for purposes of drug dosing, the eGFR should be multiplied by the estimated BMI. [facility] CHEM PANEL Creatinine Lvl 0.6 0.5 - 1.4 01/17/2015 [facility] CHEM PANEL Sodium Lvl 133 135 - 145 01/17/2015 [facility] CHEM PANEL Potassium Lvl 3.9 3.5 - 5.1 01/17/2015 [facility] CHEM PANEL Chloride Lvl 101 95 - 109 01/17/2015 [facility] CHEM PANEL ALT 13 0 - 65 01/17/2015 [facility] CHEM PANEL AST 14 0 - 37 01/17/2015 [facility] CHEM PANEL Total Protein 5.8 6.4 - 8.4 01/17/2015 [facility] CHEM PANEL Albumin Lvl 3.1 3.5 - 5.0 01/17/2015 [facility] CHEM PANEL Alk Phos 68 39 - 136 01/17/2015 [facility] CHEM PANEL Bili Total 0.4 0.2 - 1.3 01/17/2015 [facility] CHEM PANEL CO2 21 24 - 32 01/17/2015 [facility] CHEM PANEL Calcium Lvl 8.1 8.5 - 10.5 01/17/2015 [facility] CHEM PANEL BUN 8 7 - 22 01/17/2015 [facility] CHEM PANEL Glucose Lvl 88 70 - 99 01/17/2015 <sup>6</sup>Interpretive Data: Adult ref erence range values reflect the clinical guidelines
of the [place] [employer]. [facility] HEMATOLOGY MCHC 33.6 32.0 - 36.0 01/17/2015 [facility] HEMATOLOGY MCH 29.2 27.0 - 31.0 01/17/2015 [facility] HEMATOLOGY Platelet 360 133 - 450 01/17/2015 [facility] HEMATOLOGY RDW 15.6 11.5 - 14.5 01/17/2015 [facility] HEMATOLOGY MPV 7.6 7.4 - 10.4 01/17/2015 [facility] HEMATOLOGY MCV 86.9 80.0 - 98.0 01/17/2015 [facility] HEMATOLOGY Hct 30.9 36.0 - 48.0 01/17/2015 [facility] HEMATOLOGY WBC 5.6 3.7 - 10.4 01/17/2015 [facility] HEMATOLOGY Hgb 10.4 12.0 - 16.0 01/17/2015 [facility] HEMATOLOGY RBC 3.55 4.20 - 5.40 01/17/2015 [facility] HEMATOLOGY Eosinophils # 0.4 0.0 - 0.5 01/17/2015 [facility] HEMATOLOGY Basophils # 0.0 0.0 - 0.2 01/17/2015 [facility] HEMATOLOGY Segs-Bands # 3.2 1.5 - 8.1 01/17/2015 [facility] HEMATOLOGY Lymphocytes # 1.4 1.0 - 5.5 01/17/2015 [facility] HEMATOLOGY Monocytes # 0.6 0.0 - 0.8 01/17/2015 [facility] HEMATOLOGY Monocytes 10.1 2.0 - 12.0 01/17/2015 [facility] HEMATOLOGY Eosinophils 6.9 0.0 - 4.0 01/17/2015 [facility] HEMATOLOGY Basophils 0.5 0.0 - 1.0 01/17/2015 [facility] HEMATOLOGY Lymphocytes 25.1 20.0 - 40.0 01/17/2015 [facility] HEMATOLOGY Segs 57.4 45.0 - 75.0 01/17/2015 [facility] CHEM PANEL A/G Ratio 1.0 0.7 - 1.6 01/16/2015 [facility] CHEM PANEL B/C Ratio 14 6 - 25 01/16/2015 [facility] CHEM PANEL Globulin 3.2 2.0 - 4.0 01/16/2015 [facility] CHEM PANEL Bili Total 0.8 0.2 - 1.3 01/16/2015 [facility] CHEM PANEL AST 14 0 - 37 01/16/2015 [facility] CHEM PANEL Alk Phos 69 39 - 136 01/16/2015 [facility] CHEM PANEL ALT 15 0 - 65 01/16/2015 [facility] CHEM PANEL Total Protein 6.3 6.4 - 8.4 01/16/2015 [facility] CHEM PANEL Albumin Lvl 3.1 3.5 - 5.0 01/16/2015 [facility] HEMATOLOGY Eosinophils # 0.5 0.0 - 0.5 01/16/2015 [facility] HEMATOLOGY Monocytes # 0.4 0.0 - 0.8 01/16/2015 [facility] HEMATOLOGY Basophils # 0.0 0.0 - 0.2 01/16/2015 [facility] HEMATOLOGY Segs 49.7 45.0 - 75.0 01/16/2015 [facility] HEMATOLOGY Segs-Bands # 2.6 1.5 - 8.1 01/16/2015 [facility] HEMATOLOGY Lymphocytes # 1.7 1.0 - 5.5 01/16/2015 [facility] HEMATOLOGY Lymphocytes 32.3 20.0 - 40.0 01/16/2015 [facility] HEMATOLOGY Monocytes 8.4 2.0 - 12.0 01/16/2015 [facility] HEMATOLOGY Eosinophils 8.8 0.0 - 4.0 01/16/2015 [facility] HEMATOLOGY Basophils 0.8 0.0 - 1.0 01/16/2015 [facility] HEMATOLOGY MPV 7.9 7.4 - 10.4 01/16/2015 [facility] HEMATOLOGY WBC 5.3 3.7 - 10.4 01/16/2015 [facility] HEMATOLOGY Platelet 351 133 - 450 01/16/2015 [facility] HEMATOLOGY RDW 15.3 11.5 - 14.5 01/16/2015 [facility] HEMATOLOGY MCV 86.5 80.0 - 98.0 01/16/2015 [facility] HEMATOLOGY MCH 29.6 27.0 - 31.0 01/16/2015 [facility] HEMATOLOGY MCHC 34.2 32.0 - 36.0 01/16/2015 [facility] HEMATOLOGY Hgb 11.0 12.0 - 16.0 01/16/2015 [facility] HEMATOLOGY RBC 3.71 4.20 - 5.40 01/16/2015 [facility] HEMATOLOGY Hct 32.1 36.0 - 48.0 01/16/2015 [facility] URINE AND STOOL UA Mucus None Seen (01/15/15 11:35 PM) None Seen 01/16/2015 [facility] URINE AND STOOL UA Bacteria None Seen (01/15/15 11:35 PM) None Seen 01/16/2015 [facility] URINE AND STOOL UA RBC None Seen (01/15/15 11:35 PM) 0 - 2 01/16/2015 [facility] URINE AND STOOL UA WBC 0-2 /HPF None Seen /HPF 01/16/2015 [facility] URINE AND STOOL UA Leuk Est Trace *ABN* (01/15/15 11:35 PM) Negative 01/16/2015 [facility] URINE AND STOOL UA Nitrite Negative (01/15/15 11:35 PM) Negative 01/16/2015 [facility] URINE AND STOOL UA Sq Epi Rare /LPF Few /LPF 01/16/2015 [facility] URINE AND STOOL Micro? Performed (01/15/15 11:35 PM) 01/16/2015 [facility] URINE AND STOOL UA Ketones 15 mg/dL Negative mg/dL 01/16/2015 [facility] URINE AND STOOL UA Bili Negative *NA* (01/15/15 11:35 PM) Negative 01/16/2015 [facility] URINE AND STOOL UA Blood Negative (01/15/15 11:35 PM) Negative 01/16/2015 [facility] URINE AND STOOL UA Urobilinogen 0.2 0.1 - 1.0 01/16/2015 [facility] URINE AND STOOL UA Glucose Negative (01/15/15 11:35 PM) Negative 01/16/2015 [facility] URINE AND STOOL UA pH 6.0 5.0 - 8.0 01/16/2015 [facility] URINE AND STOOL UA Protein Negative (01/15/15 11:35 PM) Negative 01/16/2015 [facility] URINE AND STOOL UA Turbidity Clear (01/15/15 11:35 PM) Clear 01/16/2015 [facility] URINE AND STOOL UA Spec Grav <=1.005 *NA* (01/15/15 11:35 PM) <=1.030 01/16/2015 [facility] URINE AND STOOL UA Color STRAW 01/16/2015 [facility] CARDIAC ENZYMES Troponin-I <0.02 0.00 - 0.40 01/15/2015 [facility] CARDIAC ENZYMES CK MB Index <1.7 0.0 - 2.5 01/15/2015 [facility] CARDIAC ENZYMES CK MB <0.5 0.5 - 3.6 01/15/2015 [facility] CARDIAC ENZYMES Total CK 30 12 - 191 01/15/2015 [facility] ELECTROLYTES AGAP 8.4 10.0 - 20.0 01/03/2015 [facility] ELECTROLYTES eGFR 93 01/03/2015 <sup>1</sup>Result Comment: The eGFR is calculated using the CKD-EPI formula. In most young, healthy individuals the eGFR will be >90 mL/min/1.73m2. The eGFR declines with age. An eGFR of 60-89 may be normal in some populations, particularly the elderly, for whom the CKD-EPI formula has not been extensively validated. Use of the eGFR is not recommended in the following populations:& lt;br/>
Individuals with unstable creatinine concentrations, including patients and those with serious co-morbid conditions.

Patients with extremes in muscle mass or diet.

The data above are obtained from the National Kidney Disease Education Program (NKDEP) which additionally recommends that when the eGFR is used in patients with extremes of body mass index for purposes of drug dosing, the eGFR should be multiplied by the estimated BMI. [facility] ELECTROLYTES CO2 27 24 - 32 01/03/2015 [facility] ELECTROLYTES Chloride Lvl 104 95 - 109 01/03/2015 [facility] ELECTROLYTES Calcium Lvl 8.7 8.5 - 10.5 01/03/2015 [facility] ELECTROLYTES Potassium Lvl 3.4 3.5 - 5.1 01/03/2015 [facility] ELECTROLYTES Glucose Lvl 101 70 - 99 01/03/2015 <sup>4</sup>Interpretive Data: Adult ref erence range values reflect the clinical guidelines
of the [place] [employer]. [facility] ELECTROLYTES Sodium Lvl 136 135 - 145 01/03/2015 [facility] ELECTROLYTES Creatinine Lvl 0.6 0.5 - 1.4 01/03/2015 [facility] ELECTROLYTES BUN 5 7 - 22 01/03/2015 [facility] HEMATOLOGY Eosinophils # 0.0 0.0 - 0.5 01/03/2015 [facility] HEMATOLOGY Basophils # 0.1 0.0 - 0.2 01/03/2015 [facility] HEMATOLOGY Lymphocytes # 1.5 1.0 - 5.5 01/03/2015 [facility] HEMATOLOGY Monocytes # 0.5 0.0 - 0.8 01/03/2015 [facility] HEMATOLOGY Monocytes 9.7 2.0 - 12.0 01/03/2015 [facility] HEMATOLOGY Lymphocytes 28.6 20.0 - 40.0 01/03/2015 [facility] HEMATOLOGY Segs-Bands # 3.1 1.5 - 8.1 01/03/2015 [facility] HEMATOLOGY Segs 60.4 45.0 - 75.0 01/03/2015 [facility] HEMATOLOGY Basophils 1.1 0.0 - 1.0 01/03/2015 [facility] HEMATOLOGY Eosinophils 0.2 0.0 - 4.0 01/03/2015 [facility] HEMATOLOGY Hgb 9.6 12.0 - 16.0 01/03/2015 [facility] HEMATOLOGY RBC 3.36 4.20 - 5.40 01/03/2015 [facility] HEMATOLOGY Hct 28.5 36.0 - 48.0 01/03/2015 [facility] HEMATOLOGY WBC 5.1 3.7 - 10.4 01/03/2015 [facility] HEMATOLOGY Platelet 457 133 - 450 01/03/2015 [facility] HEMATOLOGY RDW 14.8 11.5 - 14.5 01/03/2015 [facility] HEMATOLOGY MPV 7.6 7.4 - 10.4 01/03/2015 [facility] HEMATOLOGY MCHC 33.6 32.0 - 36.0 01/03/2015 [facility] HEMATOLOGY MCH 28.5 27.0 - 31.0 01/03/2015 [facility] HEMATOLOGY MCV 84.9 80.0 - 98.0 01/03/2015 [facility] CHEM PANEL eGFR 98 01/02/2015 <sup>2</sup>Result Comment: The eGFR is calculated using the CKD-EPI formula. In most young, healthy individuals the eGFR will be >90 mL/min/1.73m2. The eGFR declines with age. An eGFR of 60-89 may be normal in some populations, particularly the elderly, for whom the CKD-EPI formula has not been extensively validated. Use of the eGFR is not recommended in the following populations:& lt;br/>
Individuals with unstable creatinine concentrations, including patients and those with serious co-morbid conditions.

Patients with extremes in muscle mass or diet.

The data above are obtained from the National Kidney Disease Education Program (NKDEP) which additionally recommends that when the eGFR is used in patients with extremes of body mass index for purposes of drug dosing, the eGFR should be multiplied by the estimated BMI. [facility] CHEM PANEL BUN 1 7 - 22 01/02/2015 [facility] CHEM PANEL Creatinine Lvl 0.5 0.5 - 1.4 01/02/2015 [facility] CHEM PANEL Glucose Lvl 92 70 - 99 01/02/2015 <sup>5</sup>Interpretive Data: Adult ref erence range values reflect the clinical guidelines
of the [place] [employer]. [facility] CHEM PANEL CO2 24 24 - 32 01/02/2015 [facility] CHEM PANEL AGAP 9.1 10.0 - 20.0 01/02/2015 [facility] CHEM PANEL Chloride Lvl 104 95 - 109 01/02/2015 [facility] CHEM PANEL Sodium Lvl 134 135 - 145 01/02/2015 [facility] CHEM PANEL Potassium Lvl 3.1 3.5 - 5.1 01/02/2015 [facility] CHEM PANEL Calcium Lvl 8.5 8.5 - 10.5 01/02/2015 [facility] HEMATOLOGY Platelet 503 133 - 450 01/02/2015 [facility] HEMATOLOGY RDW 14.9 11.5 - 14.5 01/02/2015 [facility] HEMATOLOGY MCHC 33.6 32.0 - 36.0 01/02/2015 [facility] HEMATOLOGY MPV 7.6 7.4 - 10.4 01/02/2015 [facility] HEMATOLOGY MCH 28.6 27.0 - 31.0 01/02/2015 [facility] HEMATOLOGY RBC 3.52 4.20 - 5.40 01/02/2015 [facility] HEMATOLOGY WBC 5.0 3.7 - 10.4 01/02/2015 [facility] HEMATOLOGY MCV 85.2 80.0 - 98.0 01/02/2015 [facility] HEMATOLOGY Hct 30.0 36.0 - 48.0 01/02/2015 [facility] HEMATOLOGY Hgb 10.1 12.0 - 16.0 01/02/2015 [facility] HEMATOLOGY Segs 52.1 45.0 - 75.0 01/02/2015 [facility] HEMATOLOGY Eosinophils # 0.0 0.0 - 0.5 01/02/2015 [facility] HEMATOLOGY Basophils # 0.1 0.0 - 0.2 01/02/2015 [facility] HEMATOLOGY Monocytes # 0.6 0.0 - 0.8 01/02/2015 [facility] HEMATOLOGY Monocytes 12.1 2.0 - 12.0 01/02/2015 [facility] HEMATOLOGY Lymphocytes 34.0 20.0 - 40.0 01/02/2015 [facility] HEMATOLOGY Eosinophils 0.7 0.0 - 4.0 01/02/2015 [facility] HEMATOLOGY Lymphocytes # 1.7 1.0 - 5.5 01/02/2015 [facility] HEMATOLOGY Basophils 1.1 0.0 - 1.0 01/02/2015 [facility] HEMATOLOGY Segs-Bands # 2.6 1.5 - 8.1 01/02/2015 [facility] ELECTROLYTES CO2 23 24 - 32 01/01/2015 [facility] ELECTROLYTES AGAP 12.1 10.0 - 20.0 01/01/2015 [facility] ELECTROLYTES Calcium Lvl 8.3 8.5 - 10.5 01/01/2015 [facility] ELECTROLYTES eGFR 88 01/01/2015 <sup>3</sup>Result Comment: The eGFR is calculated using the CKD-EPI formula. In most young, healthy individuals the eGFR will be >90 mL/min/1.73m2. The eGFR declines with age. An eGFR of 60-89 may be normal in some populations, particularly the elderly, for whom the CKD-EPI formula has not been extensively validated. Use of the eGFR is not recommended in the following populations:& lt;br/>
Individuals with unstable creatinine concentrations, including patients and those with serious co-morbid conditions.

Patients with extremes in muscle mass or diet.

The data above are obtained from the National Kidney Disease Education Program (NKDEP) which additionally recommends that when the eGFR is used in patients with extremes of body mass index for purposes of drug dosing, the eGFR should be multiplied by the estimated BMI. [facility] ELECTROLYTES Potassium Lvl 3.1 3.5 - 5.1 01/01/2015 [facility] ELECTROLYTES Chloride Lvl 105 95 - 109 01/01/2015 [facility] ELECTROLYTES Sodium Lvl 137 135 - 145 01/01/2015 [facility] ELECTROLYTES BUN 3 7 - 22 01/01/2015 [facility] ELECTROLYTES Creatinine Lvl 0.7 0.5 - 1.4 01/01/2015 [facility] ELECTROLYTES Glucose Lvl 126 70 - 99 01/01/2015 <sup>6</sup>Interpretive Data: Adult ref erence range values reflect the clinical guidelines
of the [place] [employer]. [facility] HEMATOLOGY Hgb 10.6 12.0 - 16.0 01/01/2015 [facility] HEMATOLOGY WBC 3.4 3.7 - 10.4 01/01/2015 [facility] HEMATOLOGY RBC 3.72 4.20 - 5.40 01/01/2015 [facility] HEMATOLOGY Platelet 565 133 - 450 01/01/2015 [facility] HEMATOLOGY MPV 7.4 7.4 - 10.4 01/01/2015 [facility] HEMATOLOGY MCHC 33.3 32.0 - 36.0 01/01/2015 [facility] HEMATOLOGY MCH 28.6 27.0 - 31.0 01/01/2015 [facility] HEMATOLOGY RDW 14.6 11.5 - 14.5 01/01/2015 [facility] HEMATOLOGY MCV 85.8 80.0 - 98.0 01/01/2015 [facility] HEMATOLOGY Hct 31.9 36.0 - 48.0 01/01/2015 [facility] HEMATOLOGY Lymphocytes 30.3 20.0 - 40.0 01/01/2015 [facility] HEMATOLOGY Segs 54.3 45.0 - 75.0 01/01/2015 [facility] HEMATOLOGY Monocytes 14.2 2.0 - 12.0 01/01/2015 [facility] HEMATOLOGY Eosinophils # 0.0 0.0 - 0.5 01/01/2015 [facility] HEMATOLOGY Monocytes # 0.5 0.0 - 0.8 01/01/2015 [facility] HEMATOLOGY Basophils # 0.0 0.0 - 0.2 01/01/2015 [facility] HEMATOLOGY Basophils 0.5 0.0 - 1.0 01/01/2015 [facility] HEMATOLOGY Eosinophils 0.7 0.0 - 4.0 01/01/2015 [facility] HEMATOLOGY Lymphocytes # 1.0 1.0 - 5.5 01/01/2015 [facility] HEMATOLOGY Segs-Bands # 1.8 1.5 - 8.1 01/01/2015 [facility] MOLECULAR DIAGNOSTIC C difficile DNA Negative 8 (12/31/14 1:07 PM) Negative 12/31/2014 <sup>8</sup>Interpretive Data: [facility] [employer] Clostridium difficile assay utilizes loop-mediated isothermal DNA amplification (LAMP) technology to detect a 204 bp region of the tcdA gene within the PaLoc gene segment present in all known toxigenic C. difficile strains.

The assay utilizes FDA cleared IVD reagents. Performance characteristics have been verified by the [facility] within the [facility]. The [facility] is authorized under the Clinical Laboratory Improvement Amendment of 1988 (CLIA-88) to perform high complexity testing. [facility] HEMATOLOGY Anisocyte 1+ *ABN* (12/31/14 8:56 AM) None Seen 12/31/2014 [facility] HEMATOLOGY Large Plt Moder ate *ABN* (12/31/14 8:56 AM) None Seen 12/31/2014 [facility] IMMUNOLOGY Prealbumin 13.1 18.0 - 45.0 12/31/2014 [facility] CHEM PANEL Globulin 3.0 2.0 - 4.0 12/30/2014 [facility] CHEM PANEL A/G Ratio 1.1 0.7 - 1.6 12/30/2014 [facility] CHEM PANEL AST 21 0 - 37 12/30/2014 [facility] CHEM PANEL ALT 21 0 - 65 12/30/2014 [facility] CHEM PANEL Bili Total 0.6 0.2 - 1.3 12/30/2014 [facility] CHEM PANEL Alk Phos 85 39 - 136 12/30/2014 [facility] CHEM PANEL Total Protein 6.2 6.4 - 8.4 12/30/2014 [facility] CHEM PANEL Albumin Lvl 3.2 3.5 - 5.0 12/30/2014 [facility] CHEM PANEL B/C Ratio 12 6 - 25 12/30/2014 [facility] HEMATOLOGY PTT 34.3 22.9 - 35.8 12/30/2014 <sup>7</sup>Interpretive Data: Heparin T herapeutic Range: 57 - 92 Seconds [facility] URINE AND STOOL UA RBC None Seen (12/30/14 9:41 AM) 0 - 2 12/30/2014 [facility] URINE AND STOOL UA WBC 0-2 /HPF None Seen /HPF 12/30/2014 [facility] URINE AND STOOL UA Amorph Opal Moderate /HPF None Seen /HPF 12/30/2014 [facility] URINE AND STOOL UA Bacteria Occasional /HPF None Seen /HPF 12/30/2014 [facility] URINE AND STOOL UA Sq Epi Occasional /LPF Few /LPF 12/30/2014 [facility] URINE AND STOOL Micro? Performed (12/30/14 9:41 AM) 12/30/2014 [facility] URINE AND STOOL UA Urobilinogen 1.0 0.1 - 1.0 12/30/2014 [facility] URINE AND STOOL UA Nitrite Negative (12/30/14 9:41 AM) Negative 12/30/2014 [facility] URINE AND STOOL UA Bili Negative *NA* (12/30/14 9:41 AM) Negative 12/30/2014 [facility] URINE AND STOOL UA Blood Negative (12/30/14 9:41 AM) Negative 12/30/2014 [facility] URINE AND STOOL UA Leuk Est Negative (12/30/14 9:41 AM) Negative 12/30/2014 [facility] URINE AND STOOL UA Protein Negative mg/dL Negative mg/dL 12/30/2014 [facility] URINE AND STOOL UA Glucose Negative mg/dL Negative mg/dL 12/30/2014 [facility] URINE AND STOOL UA pH 8.5 5.0 - 8.0 12/30/2014 [facility] URINE AND STOOL UA Ketones 40 mg/dL Negative mg/dL 12/30/2014 [facility] URINE AND STOOL UA Turbidity Slight Cloudy (12/30/14 9:41 AM) Clear 12/30/2014 [facility] URINE AND STOOL UA Spec Grav 1.015 <=1.030 12/30/2014 [facility] URINE AND STOOL UA Color Yellow *NA* (12/30/14 9:41 AM) Yellow 12/30/2014 [facility] CHEM PANEL Lactic Acid Lvl 0.5 0.5 - 2.2 12/30/2014 [facility] CHEM PANEL Lipase Lvl 120 73 - 393 12/30/2014 [facility] CHEM PANEL Amylase Lvl 44 25 - 115 12/30/2014 [facility] CHEM PANEL Alk Phos 102 39 - 136 12/30/2014 [facility] CHEM PANEL Bili Total 0.5 0.2 - 1.3 12/30/2014 [facility] CHEM PANEL AST 26 0 - 37 12/30/2014 [facility] CHEM PANEL ALT 23 0 - 65 12/30/2014 [facility] CHEM PANEL A/G Ratio 1.0 0.7 - 1.6 12/30/2014 [facility] CHEM PANEL Globulin 3.5 2.0 - 4.0 12/30/2014 [facility] CHEM PANEL Albumin Lvl 3.6 3.5 - 5.0 12/30/2014 [facility] CHEM PANEL Total Protein 7.1 6.4 - 8.4 12/30/2014 [facility] CHEM PANEL B/C Ratio 13 6 - 25 12/30/2014 [facility] CHEM PANEL eGFR 93 12/25/2014 <sup>1</sup>Result Comment: The eGFR is calculated using the CKD-EPI formula. In most young, healthy individuals the eGFR will be >90 mL/min/1.73m2. The eGFR declines with age. An eGFR of 60-89 may be normal in some populations, particularly the elderly, for whom the CKD-EPI formula has not been extensively validated. Use of the eGFR is not recommended in the following populations:& lt;br/>
Individuals with unstable creatinine concentrations, including patients and those with serious co-morbid conditions.

Patients with extremes in muscle mass or diet.

The data above are obtained from the National Kidney Disease Education Program (NKDEP) which additionally recommends that when the eGFR is used in patients with extremes of body mass index for purposes of drug dosing, the eGFR should be multiplied by the estimated BMI. [facility] CHEM PANEL Calcium Lvl 8.4 8.5 - 10.5 12/25/2014 [facility] CHEM PANEL CO2 25 24 - 32 12/25/2014 [facility] CHEM PANEL Chloride Lvl 102 95 - 109 12/25/2014 [facility] CHEM PANEL Potassium Lvl 3.8 3.5 - 5.1 12/25/2014 [facility] CHEM PANEL Creatinine Lvl 0.6 0.5 - 1.4 12/25/2014 [facility] CHEM PANEL Glucose Lvl 88 70 - 99 12/25/2014 <sup>4</sup>Interpretive Data: Adult ref erence range values reflect the clinical guidelines
of the [place] [employer]. [facility] CHEM PANEL Sodium Lvl 134 135 - 145 12/25/2014 [facility] CHEM PANEL BUN 5 7 - 22 12/25/2014 [facility] CHEM PANEL AGAP 10.8 10.0 - 20.0 12/25/2014 [facility] HEMATOLOGY Monocytes # 0.4 0.0 - 0.8 12/25/2014 [facility] HEMATOLOGY Basophils # 0.0 0.0 - 0.2 12/25/2014 [facility] HEMATOLOGY Eosinophils # 0.3 0.0 - 0.5 12/25/2014 [facility] HEMATOLOGY Lymphocytes # 1.5 1.0 - 5.5 12/25/2014 [facility] HEMATOLOGY Segs-Bands # 2.7 1.5 - 8.1 12/25/2014 [facility] HEMATOLOGY Monocytes 7.6 2.0 - 12.0 12/25/2014 [facility] HEMATOLOGY Lymphocytes 30.7 20.0 - 40.0 12/25/2014 [facility] HEMATOLOGY Eosinophils 5.2 0.0 - 4.0 12/25/2014 [facility] HEMATOLOGY Basophils 0.6 0.0 - 1.0 12/25/2014 [facility] HEMATOLOGY Segs 55.9 45.0 - 75.0 12/25/2014 [facility] HEMATOLOGY MPV 8.2 7.4 - 10.4 12/25/2014 [facility] HEMATOLOGY Platelet 362 133 - 450 12/25/2014 [facility] HEMATOLOGY Hgb 9.5 12.0 - 16.0 12/25/2014 [facility] HEMATOLOGY RDW 14.6 11.5 - 14.5 12/25/2014 [facility] HEMATOLOGY MCHC 33.6 32.0 - 36.0 12/25/2014 [facility] HEMATOLOGY Hct 28.2 36.0 - 48.0 12/25/2014 [facility] HEMATOLOGY MCH 29.1 27.0 - 31.0 12/25/2014 [facility] HEMATOLOGY MCV 86.6 80.0 - 98.0 12/25/2014 [facility] HEMATOLOGY RBC 3.26 4.20 - 5.40 12/25/2014 [facility] HEMATOLOGY WBC 4.9 3.7 - 10.4 12/25/2014 [facility] CHEM PANEL A/G Ratio 1.0 0.7 - 1.6 12/24/2014 [facility] CHEM PANEL Globulin 2.7 2.0 - 4.0 12/24/2014 [facility] CHEM PANEL AGAP 12.5 10.0 - 20.0 12/24/2014 [facility] CHEM PANEL B/C Ratio 8 6 - 25 12/24/2014 [facility] CHEM PANEL eGFR 93 12/24/2014 <sup>2</sup>Result Comment: The eGFR is calculated using the CKD-EPI formula. In most young, healthy individuals the eGFR will be >90 mL/min/1.73m2. The eGFR declines with age. An eGFR of 60-89 may be normal in some populations, particularly the elderly, for whom the CKD-EPI formula has not been extensively validated. Use of the eGFR is not recommended in the following populations:& lt;br/>
Individuals with unstable creatinine concentrations, including patients and those with serious co-morbid conditions.

Patients with extremes in muscle mass or diet.

The data above are obtained from the National Kidney Disease Education Program (NKDEP) which additionally recommends that when the eGFR is used in patients with extremes of body mass index for purposes of drug dosing, the eGFR should be multiplied by the estimated BMI. [facility] CHEM PANEL ALT 16 0 - 65 12/24/2014 [facility] CHEM PANEL Calcium Lvl 8.2 8.5 - 10.5 12/24/2014 [facility] CHEM PANEL Total Protein 5.4 6.4 - 8.4 12/24/2014 [facility] CHEM PANEL AST 15 0 - 37 12/24/2014 [facility] CHEM PANEL Albumin Lvl 2.7 3.5 - 5.0 12/24/2014 [facility] CHEM PANEL Bili Total 0.6 0.2 - 1.3 12/24/2014 [facility] CHEM PANEL Alk Phos 88 39 - 136 12/24/2014 [facility] CHEM PANEL Glucose Lvl 90 70 - 99 12/24/2014 <sup>5</sup>Interpretive Data: Adult ref erence range values reflect the clinical guidelines
of the [place] [employer]. [facility] CHEM PANEL BUN 5 7 - 22 12/24/2014 [facility] CHEM PANEL Creatinine Lvl 0.6 0.5 - 1.4 12/24/2014 [facility] CHEM PANEL Sodium Lvl 134 135 - 145 12/24/2014 [facility] CHEM PANEL Potassium Lvl 3.5 3.5 - 5.1 12/24/2014 [facility] CHEM PANEL Chloride Lvl 101 95 - 109 12/24/2014 [facility] CHEM PANEL CO2 24 24 - 32 12/24/2014 [facility] HEMATOLOGY WBC 5.0 3.7 - 10.4 12/24/2014 [facility] HEMATOLOGY Platelet 301 133 - 450 12/24/2014 [facility] HEMATOLOGY MCHC 33.8 32.0 - 36.0 12/24/2014 [facility] HEMATOLOGY RDW 14.4 11.5 - 14.5 12/24/2014 [facility] HEMATOLOGY MCV 85.7 80.0 - 98.0 12/24/2014 [facility] HEMATOLOGY MCH 29.0 27.0 - 31.0 12/24/2014 [facility] HEMATOLOGY Hct 27.3 36.0 - 48.0 12/24/2014 [facility] HEMATOLOGY RBC 3.19 4.20 - 5.40 12/24/2014 [facility] HEMATOLOGY Hgb 9.3 12.0 - 16.0 12/24/2014 [facility] HEMATOLOGY MPV 8.5 7.4 - 10.4 12/24/2014 [facility] HEMATOLOGY Lymphocytes # 1.1 1.0 - 5.5 12/24/2014 [facility] HEMATOLOGY Basophils 0.7 0.0 - 1.0 12/24/2014 [facility] HEMATOLOGY Monocytes # 0.4 0.0 - 0.8 12/24/2014 [facility] HEMATOLOGY Eosinophils # 0.1 0.0 - 0.5 12/24/2014 [facility] HEMATOLOGY Lymphocytes 22.4 20.0 - 40.0 12/24/2014 [facility] HEMATOLOGY Eosinophils 2.8 0.0 - 4.0 12/24/2014 [facility] HEMATOLOGY Segs-Bands # 3.3 1.5 - 8.1 12/24/2014 [facility] HEMATOLOGY Basophils # 0.0 0.0 - 0.2 12/24/2014 [facility] HEMATOLOGY Monocytes 7.7 2.0 - 12.0 12/24/2014 [facility] HEMATOLOGY Segs 66.4 45.0 - 75.0 12/24/2014 [facility] BACTERIAL - SEROLOGY U S pneumo Ag Negative (12/24/14 12:25 AM) Negative 12/24/2014 [facility] CHEM PANEL eGFR 93 12/23/2014 <sup>3</sup>Result Comment: The eGFR is calculated using the CKD-EPI formula. In most young, healthy individuals the eGFR will be >90 mL/min/1.73m2. The eGFR declines with age. An eGFR of 60-89 may be normal in some populations, particularly the elderly, for whom the CKD-EPI formula has not been extensively validated. Use of the eGFR is not recommended in the following populations:& lt;br/>
Individuals with unstable creatinine concentrations, including patients and those with serious co-morbid conditions.

Patients with extremes in muscle mass or diet.

The data above are obtained from the National Kidney Disease Education Program (NKDEP) which additionally recommends that when the eGFR is used in patients with extremes of body mass index for purposes of drug dosing, the eGFR should be multiplied by the estimated BMI. [facility] CHEM PANEL Bili Total 0.6 0.2 - 1.3 12/23/2014 [facility] CHEM PANEL Glucose Lvl 85 70 - 99 12/23/2014 <sup>6</sup>Interpretive Data: Adult ref erence range values reflect the clinical guidelines
of the [place] [employer]. [facility] CHEM PANEL Chloride Lvl 102 95 - 109 12/23/2014 [facility] CHEM PANEL Potassium Lvl 3.5 3.5 - 5.1 12/23/2014 [facility] CHEM PANEL Creatinine Lvl 0.6 0.5 - 1.4 12/23/2014 [facility] CHEM PANEL BUN 5 7 - 22 12/23/2014 [facility] CHEM PANEL AST 13 0 - 37 12/23/2014 [facility] CHEM PANEL Sodium Lvl 134 135 - 145 12/23/2014 [facility] CHEM PANEL Calcium Lvl 8.1 8.5 - 10.5 12/23/2014 [facility] CHEM PANEL CO2 22 24 - 32 12/23/2014 [facility] CHEM PANEL ALT 18 0 - 65 12/23/2014 [facility] CHEM PANEL Albumin Lvl 2.7 3.5 - 5.0 12/23/2014 [facility] CHEM PANEL Total Protein 5.2 6.4 - 8.4 12/23/2014 [facility] CHEM PANEL Alk Phos 86 39 - 136 12/23/2014 [facility] CHEM PANEL AGAP 13.5 10.0 - 20.0 12/23/2014 [facility] CHEM PANEL B/C Ratio 8 6 - 25 12/23/2014 [facility] CHEM PANEL Globulin 2.5 2.0 - 4.0 12/23/2014 [facility] CHEM PANEL A/G Ratio 1.1 0.7 - 1.6 12/23/2014 [facility] HEMATOLOGY MPV 8.6 7.4 - 10.4 12/23/2014 [facility] HEMATOLOGY MCHC 32.8 32.0 - 36.0 12/23/2014 [facility] HEMATOLOGY WBC 7.2 3.7 - 10.4 12/23/2014 [facility] HEMATOLOGY Hct 26.9 36.0 - 48.0 12/23/2014 [facility] HEMATOLOGY RBC 3.09 4.20 - 5.40 12/23/2014 [facility] HEMATOLOGY RDW 14.6 11.5 - 14.5 12/23/2014 [facility] HEMATOLOGY Platelet 248 133 - 450 12/23/2014 [facility] HEMATOLOGY MCH 28.6 27.0 - 31.0 12/23/2014 [facility] HEMATOLOGY MCV 87.1 80.0 - 98.0 12/23/2014 [facility] HEMATOLOGY Hgb 8.8 12.0 - 16.0 12/23/2014 [facility] HEMATOLOGY Basophils # 0.0 0.0 - 0.2 12/23/2014 [facility] HEMATOLOGY Monocytes # 0.3 0.0 - 0.8 12/23/2014 [facility] HEMATOLOGY Eosinophils # 0.2 0.0 - 0.5 12/23/2014 [facility] HEMATOLOGY Lymphocytes # 1.1 1.0 - 5.5 12/23/2014 [facility] HEMATOLOGY Monocytes 3.7 2.0 - 12.0 12/23/2014 [facility] HEMATOLOGY Eosinophils 2.4 0.0 - 4.0 12/23/2014 [facility] HEMATOLOGY Segs-Bands # 5.7 1.5 - 8.1 12/23/2014 [facility] HEMATOLOGY Basophils 0.5 0.0 - 1.0 12/23/2014 [facility] HEMATOLOGY Segs 78.4 45.0 - 75.0 12/23/2014 [facility] HEMATOLOGY Lymphocytes 15.0 20.0 - 40.0 12/23/2014 [facility] CHEM PANEL A/G Ratio 1.2 0.7 - 1.6 12/22/2014 [facility] CHEM PANEL Globulin 2.3 2.0 - 4.0 12/22/2014 [facility] CHEM PANEL B/C Ratio 20 6 - 25 12/22/2014 [facility] CHEM PANEL Albumin Lvl 2.7 3.5 - 5.0 12/22/2014 [facility] CHEM PANEL Total Protein 5.0 6.4 - 8.4 12/22/2014 [facility] CHEM PANEL Bili Total 0.7 0.2 - 1.3 12/22/2014 [facility] CHEM PANEL AST 14 0 - 37 12/22/2014 [facility] CHEM PANEL Alk Phos 73 39 - 136 12/22/2014 [facility] CHEM PANEL ALT 21 0 - 65 12/22/2014 [facility] MOLECULAR DIAGNOSTIC Influenza A PCR Negative (12/21/14 5:19 PM) Negative 12/21/2014 [facility] MOLECULAR DIAGNOSTIC RSV PCR Negative 8 (12/21/14 5:19 PM) Negative 12/21/2014 <sup>8</sup>Interpretive Data: [employer] ProFlu plus assay is a multiplex real-time PCR test
for the qualitative detection and discrimination of Influenza A Virus,
Influenza B Virus, and Respiratory Syncytial Virus. A negative result
does not rule out the presence of these viruses. The specimen may
contain polymerase chain reaction (PCR) inhibitors or virus below the
detectable limits of the assay. Results should not be used as the sole
basis for clinical diagnosis, treatment, or patient management.

This assay utilizes FDA cleared IVD reagents for Real- Time nucleic acid
amplification (PCR). Performance characteristics have been verified by
the [facility] within [facility]. The
Molecular Diagnostic Laboratory is authorized under the Clinical
Laboratory Improvement Amendments of 1988 (CLIA-88) to perform high
complexity testing. [facility] MOLECULAR DIAGNOSTIC Influenza B PCR Negative (12/21/14 5:19 PM) Negative 12/21/2014 [facility] MOLECULAR DIAGNOSTIC Source Respirat ory Panel PCR [employer] Swab (12/21/14 5:19 PM) 12/21/2014 [facility] CHEM PANEL Procalcitonin Lvl 0.14 0.00 - 0.10 12/21/2014 [facility] HEMATOLOGY PTT 33.3 22.9 - 35.8 12/21/2014 <sup>7</sup>Interpretive Data: Heparin T herapeutic Range: 57 - 92 Seconds [facility] URINE AND STOOL UA Ketones Negative mg/dL Negative mg/dL 12/21/2014 [facility] URINE AND STOOL UA Bili Negative *NA* (12/21/14 5:46 AM) Negative 12/21/2014 [facility] URINE AND STOOL UA Nitrite Negative (12/21/14 5:46 AM) Negative 12/21/2014 [facility] URINE AND STOOL UA Blood Negative (12/21/14 5:46 AM) Negative 12/21/2014 [facility] URINE AND STOOL UA Urobilinogen 1.0 0.1 - 1.0 12/21/2014 [facility] URINE AND STOOL UA Leuk Est Negative (12/21/14 5:46 AM) Negative 12/21/2014 [facility] URINE AND STOOL UA Protein Negative mg/dL Negative mg/dL 12/21/2014 [facility] URINE AND STOOL UA Glucose Negative mg/dL Negative mg/dL 12/21/2014 [facility] URINE AND STOOL UA Turbidity Clear (12/21/14 5:46 AM) Clear 12/21/2014 [facility] URINE AND STOOL UA pH 6.0 5.0 - 8.0 12/21/2014 [facility] URINE AND STOOL UA Spec Grav 1.015 <=1.030 12/21/2014 [facility] URINE AND STOOL UA Color Yellow *NA* (12/21/14 5:46 AM) Yellow 12/21/2014 [facility] URINE AND STOOL UA RBC 0-2 /HPF 0 - 2 12/21/2014 [facility] URINE AND STOOL UA Mucus None Seen (12/21/14 5:46 AM) None Seen 12/21/2014 [facility] URINE AND STOOL UA Bacteria Occasional /HPF None Seen /HPF 12/21/2014 [facility] URINE AND STOOL Micro? Performed (12/21/14 5:46 AM) 12/21/2014 [facility] URINE AND STOOL UA Sq Epi Rare /LPF Few /LPF 12/21/2014 [facility] URINE AND STOOL UA WBC 0-2 /HPF None Seen /HPF 12/21/2014 [facility] HEMATOLOGY RBC Morph Ofe l (12/21/14 4:08 AM) 12/21/2014 [facility] HEMATOLOGY Plt Morph Ofe l (12/21/14 4:08 AM) 12/21/2014 [facility] CHEM PANEL Lactic Acid Lvl 1.1 0.5 - 2.2 12/21/2014 [facility] CHEM PANEL Lipase Lvl 143 73 - 393 12/21/2014 [facility] VIRAL - SEROLOGY Influ A Negative (12/21/14 3:43 AM) Negative 12/21/2014 [facility] VIRAL - SEROLOGY Influ B Negative 9 (12/21/14 3:43 AM) Negative 12/21/2014 <sup>9</sup>Interpretive Data: Influenza A&B Antigen:
Due to the low sensitivity of this test a negative result does not exclude influenza virus infection. A diagnosis of influenza should be considered based on a patient's clinical presentation and empiric antiviral treatment should be considered, if indicated. If more conclusive testing is desired, follow-up confirmatory testing with either viral culture or PCR is warranted. [facility] ELECTROLYTES AGAP 10.2 10.0 - 20.0 11/27/2014 [facility] ELECTROLYTES Calcium Lvl 8.0 8.5 - 10.5 11/27/2014 [facility] ELECTROLYTES CO2 24 24 - 32 11/27/2014 [facility] ELECTROLYTES eGFR 106 11/27/2014 <sup>1</sup>Result Comment: The eGFR is calculated using the CKD-EPI formula. In most young, healthy individuals the eGFR will be >90 mL/min/1.73m2. The eGFR declines with age. An eGFR of 60-89 may be normal in some populations, particularly the elderly, for whom the CKD-EPI formula has not been extensively validated. Use of the eGFR is not recommended in the following populations:& lt;br/>
Individuals with unstable creatinine concentrations, including patients and those with serious co-morbid conditions.

Patients with extremes in muscle mass or diet.

The data above are obtained from the National Kidney Disease Education Program (NKDEP) which additionally recommends that when the eGFR is used in patients with extremes of body mass index for purposes of drug dosing, the eGFR should be multiplied by the estimated BMI. [facility] ELECTROLYTES Glucose Lvl 77 70 - 99 11/27/2014 <sup>4</sup>Interpretive Data: Adult ref erence range values reflect the clinical guidelines
of the [place] [employer]. [facility] ELECTROLYTES Sodium Lvl 133 135 - 145 11/27/2014 [facility] ELECTROLYTES Creatinine Lvl 0.4 0.5 - 1.4 11/27/2014 [facility] ELECTROLYTES Chloride Lvl 103 95 - 109 11/27/2014 [facility] ELECTROLYTES Potassium Lvl 4.2 3.5 - 5.1 11/27/2014 [facility] ELECTROLYTES BUN 6 7 - 22 11/27/2014 [facility] CHEM PANEL eGFR 98 11/26/2014 <sup>2</sup>Result Comment: The eGFR is calculated using the CKD-EPI formula. In most young, healthy individuals the eGFR will be >90 mL/min/1.73m2. The eGFR declines with age. An eGFR of 60-89 may be normal in some populations, particularly the elderly, for whom the CKD-EPI formula has not been extensively validated. Use of the eGFR is not recommended in the following populations:& lt;br/>
Individuals with unstable creatinine concentrations, including patients and those with serious co-morbid conditions.

Patients with extremes in muscle mass or diet.

The data above are obtained from the National Kidney Disease Education Program (NKDEP) which additionally recommends that when the eGFR is used in patients with extremes of body mass index for purposes of drug dosing, the eGFR should be multiplied by the estimated BMI. [facility] CHEM PANEL BUN 7 7 - 22 11/26/2014 [facility] CHEM PANEL Sodium Lvl 127 135 - 145 11/26/2014 [facility] CHEM PANEL Creatinine Lvl 0.5 0.5 - 1.4 11/26/2014 [facility] CHEM PANEL Chloride Lvl 101 95 - 109 11/26/2014 [facility] CHEM PANEL Potassium Lvl 3.9 3.5 - 5.1 11/26/2014 [facility] CHEM PANEL Calcium Lvl 7.9 8.5 - 10.5 11/26/2014 [facility] CHEM PANEL CO2 19 24 - 32 11/26/2014 [facility] CHEM PANEL Glucose Lvl 81 70 - 99 11/26/2014 <sup>5</sup>Interpretive Data: Adult ref erence range values reflect the clinical guidelines
of the [place] [employer]. [facility] CHEM PANEL AGAP 10.9 10.0 - 20.0 11/26/2014 [facility] HEMATOLOGY MPV 7.7 7.4 - 10.4 11/26/2014 [facility] HEMATOLOGY MCH 29.0 27.0 - 31.0 11/26/2014 [facility] HEMATOLOGY MCHC 33.8 32.0 - 36.0 11/26/2014 [facility] HEMATOLOGY RDW 13.1 11.5 - 14.5 11/26/2014 [facility] HEMATOLOGY Platelet 410 133 - 450 11/26/2014 [facility] HEMATOLOGY Hgb 10.3 12.0 - 16.0 11/26/2014 [facility] HEMATOLOGY Hct 30.4 36.0 - 48.0 11/26/2014 [facility] HEMATOLOGY MCV 85.9 80.0 - 98.0 11/26/2014 [facility] HEMATOLOGY WBC 4.2 3.7 - 10.4 11/26/2014 [facility] HEMATOLOGY RBC 3.54 4.20 - 5.40 11/26/2014 [facility] HEMATOLOGY Eosinophils 1.3 0.0 - 4.0 11/26/2014 [facility] HEMATOLOGY Segs-Bands # 2.0 1.5 - 8.1 11/26/2014 [facility] HEMATOLOGY Monocytes # 0.1 0.0 - 0.8 11/26/2014 [facility] [facility] HEMATOLOGY Basophils 0.7 0.0 - 1.0 11/26/2014 [facility] HEMATOLOGY Lymphocytes # 2.0 1.0 - 5.5 11/26/2014 [facility] HEMATOLOGY Eosinophils # 0.1 0.0 - 0.5 11/26/2014 [facility] HEMATOLOGY Basophils # 0.0 0.0 - 0.2 11/26/2014 [facility] HEMATOLOGY Segs 47.2 45.0 - 75.0 11/26/2014 [facility] HEMATOLOGY Lymphocytes 47.5 20.0 - 40.0 11/26/2014 [facility] HEMATOLOGY Monocytes 3.3 2.0 - 12.0 11/26/2014 [facility] CHEM PANEL Magnesium Lvl 1.7 1.8 - 2.4 11/25/2014 [facility] CHEM PANEL A/G Ratio 1.1 0.7 - 1.6 11/25/2014 [facility] CHEM PANEL Globulin 3.1 2.0 - 4.0 11/25/2014 [facility] CHEM PANEL B/C Ratio 20 6 - 25 11/25/2014 [facility] CHEM PANEL AGAP 6.5 10.0 - 20.0 11/25/2014 [facility] CHEM PANEL Chloride Lvl 93 95 - 109 11/25/2014 [facility] CHEM PANEL Potassium Lvl 3.5 3.5 - 5.1 11/25/2014 [facility] CHEM PANEL Glucose Lvl 105 70 - 99 11/25/2014 <sup>6</sup>Interpretive Data: Adult ref erence range values reflect the clinical guidelines
of the [place] [employer]. [facility] CHEM PANEL BUN 12 7 - 22 11/25/2014 [facility] Creatinine Lvl 0.6 0.5 - 1.4 11/25/2014 [facility] CHEM PANEL Sodium Lvl 126 135 - 145 11/25/2014 [facility] CHEM PANEL eGFR 93 11/25/2014 <sup>3</sup>Result Comment: The eGFR is calculated using the CKD-EPI formula. In most young, healthy individuals the eGFR will be >90 mL/min/1.73m2. The eGFR declines with age. An eGFR of 60-89 may be normal in some populations, particularly the elderly, for whom the CKD-EPI formula has not been extensively validated. Use of the eGFR is not recommended in the following populations:& lt;br/>
Individuals with unstable creatinine concentrations, including patients and those with serious co-morbid conditions.

Patients with extremes in muscle mass or diet.

The data above are obtained from the National Kidney Disease Education Program (NKDEP) which additionally recommends that when the eGFR is used in patients with extremes of body mass index for purposes of drug dosing, the eGFR should be multiplied by the estimated BMI. [facility] CHEM PANEL Alk Phos 86 39 - 136 11/25/2014 [facility] CHEM PANEL AST 23 0 - 37 11/25/2014 [facility] CHEM PANEL ALT 37 0 - 65 11/25/2014 [facility] CHEM PANEL Albumin Lvl 3.5 3.5 - 5.0 11/25/2014 [facility] CHEM PANEL Total Protein 6.6 6.4 - 8.4 11/25/2014 [facility] CHEM PANEL Bili Total 0.4 0.2 - 1.3 11/25/2014 [facility] CHEM PANEL CO2 30 24 - 32 11/25/2014 [facility] CHEM PANEL Calcium Lvl 8.9 8.5 - 10.5 11/25/2014 [facility] HEMATOLOGY RBC 4.00 4.20 - 5.40 11/25/2014 [facility] HEMATOLOGY Hct 34.4 36.0 - 48.0 11/25/2014 [facility] HEMATOLOGY Hgb 11.6 12.0 - 16.0 11/25/2014 [facility] HEMATOLOGY RDW 12.9 11.5 - 14.5 11/25/2014 [facility] HEMATOLOGY Platelet 506 133 - 450 11/25/2014 [facility] HEMATOLOGY MCV 86.1 80.0 - 98.0 11/25/2014 [facility] HEMATOLOGY MCHC 33.8 32.0 - 36.0 11/25/2014 [facility] HEMATOLOGY MCH 29.1 27.0 - 31.0 11/25/2014 [facility] HEMATOLOGY MPV 7.9 7.4 - 10.4 11/25/2014 [facility] HEMATOLOGY WBC 4.5 3.7 - 10.4 11/25/2014 [facility] HEMATOLOGY Basophils # 0.0 0.0 - 0.2 11/25/2014 [facility] HEMATOLOGY Eosinophils 1.0 0.0 - 4.0 11/25/2014 [facility] HEMATOLOGY Monocytes 3.0 2.0 - 12.0 11/25/2014 [facility] HEMATOLOGY Lymphocytes 40.9 20.0 - 40.0 11/25/2014 [facility] HEMATOLOGY Segs 54.5 45.0 - 75.0 11/25/2014 [facility] HEMATOLOGY Lymphocytes # 1.9 1.0 - 5.5 11/25/2014 [facility] HEMATOLOGY Segs-Bands # 2.5 1.5 - 8.1 11/25/2014 [facility] HEMATOLOGY Basophils 0.6 0.0 - 1.0 11/25/2014 [facility] HEMATOLOGY Monocytes # 0.1 0.0 - 0.8 11/25/2014 [facility] HEMATOLOGY Eosinophils # 0.0 0.0 - 0.5 11/25/2014 [facility] CHEM PANEL eGFR 93 08/15/2014 <sup>1</sup>Result Comment: The eGFR is calculated using the CKD-EPI formula. In most young, healthy individuals the eGFR will be >90 mL/min/1.73m2. The eGFR declines with age. An eGFR of 60-89 may be normal in some populations, particularly the elderly, for whom the CKD-EPI formula has not been extensively validated. Use of the eGFR is not recommended in the following populations:& lt;br/>
Individuals with unstable creatinine concentrations, including patients and those with serious co-morbid conditions.

Patients with extremes in muscle mass or diet.

The data above are obtained from the National Kidney Disease Education Program (NKDEP) which additionally recommends that when the eGFR is used in patients with extremes of body mass index for purposes of drug dosing, the eGFR should be multiplied by the estimated BMI. [facility] CHEM PANEL Creatinine Lvl 0.6 0.5 - 1.4 08/15/2014 [facility] CHEM PANEL BUN 6 7 - 22 08/15/2014 [facility] CHEM PANEL AGAP 10.7 10.0 - 20.0 08/15/2014 [facility] CHEM PANEL Chloride Lvl 100 95 - 109 08/15/2014 [facility] CHEM PANEL CO2 24 24 - 32 08/15/2014 [facility] CHEM PANEL Potassium Lvl 3.7 3.5 - 5.1 08/15/2014 [facility] CHEM PANEL Sodium Lvl 131 135 - 145 08/15/2014 [facility] CHEM PANEL Glucose Lvl 78 70 - 99 08/15/2014 <sup>4</sup>Interpretive Data: Adult ref erence range values reflect the clinical guidelines
of the [place] [employer]. [facility] CHEM PANEL Calcium Lvl 8.3 8.5 - 10.5 08/15/2014 [facility] CHEM PANEL eGFR 98 08/14/2014 <sup>2</sup>Result Comment: The eGFR is calculated using the CKD-EPI formula. In most young, healthy individuals the eGFR will be >90 mL/min/1.73m2. The eGFR declines with age. An eGFR of 60-89 may be normal in some populations, particularly the elderly, for whom the CKD-EPI formula has not been extensively validated. Use of the eGFR is not recommended in the following populations:& lt;br/>
Individuals with unstable creatinine concentrations, including patients and those with serious co-morbid conditions.

Patients with extremes in muscle mass or diet.

The data above are obtained from the National Kidney Disease Education Program (NKDEP) which additionally recommends that when the eGFR is used in patients with extremes of body mass index for purposes of drug dosing, the eGFR should be multiplied by the estimated BMI. [facility] CHEM PANEL Glucose Lvl 82 70 - 99 08/14/2014 <sup>5</sup>Interpretive Data: Adult ref erence range values reflect the clinical guidelines
of the [place] [employer]. [facility] CHEM PANEL Creatinine Lvl 0.5 0.5 - 1.4 08/14/2014 [facility] CHEM PANEL BUN 6 7 - 22 08/14/2014 [facility] CHEM PANEL Sodium Lvl 128 135 - 145 08/14/2014 [facility] CHEM PANEL Potassium Lvl 3.6 3.5 - 5.1 08/14/2014 [facility] CHEM PANEL Chloride Lvl 97 95 - 109 08/14/2014 [facility] CHEM PANEL CO2 22 24 - 32 08/14/2014 [facility] CHEM PANEL Calcium Lvl 8.0 8.5 - 10.5 08/14/2014 [facility] CHEM PANEL AGAP 12.6 10.0 - 20.0 08/14/2014 [facility] ELECTROLYTES Potassium Lvl 3.6 3.5 - 5.1 08/14/2014 [facility] ELECTROLYTES Chloride Lvl 98 95 - 109 08/14/2014 [facility] ELECTROLYTES CO2 23 24 - 32 08/14/2014 [facility] ELECTROLYTES BUN 6 7 - 22 08/14/2014 [facility] ELECTROLYTES Creatinine Lvl 0.6 0.5 - 1.4 08/14/2014 [facility] ELECTROLYTES Sodium Lvl 127 135 - 145 08/14/2014 [facility] ELECTROLYTES Glucose Lvl 80 70 - 99 08/14/2014 <sup>6</sup>Interpretive Data: Adult ref erence range values reflect the clinical guidelines
of the [place] [employer]. [facility] ELECTROLYTES eGFR 93 08/14/2014 <sup>3</sup>Result Comment: The eGFR is calculated using the CKD-EPI formula. In most young, healthy individuals the eGFR will be >90 mL/min/1.73m2. The eGFR declines with age. An eGFR of 60-89 may be normal in some populations, particularly the elderly, for whom the CKD-EPI formula has not been extensively validated. Use of the eGFR is not recommended in the following populations:& lt;br/>
Individuals with unstable creatinine concentrations, including patients and those with serious co-morbid conditions.

Patients with extremes in muscle mass or diet.

The data above are obtained from the National Kidney Disease Education Program (NKDEP) which additionally recommends that when the eGFR is used in patients with extremes of body mass index for purposes of drug dosing, the eGFR should be multiplied by the estimated BMI. [facility] ELECTROLYTES Calcium Lvl 8.1 8.5 - 10.5 08/14/2014 [facility] ELECTROLYTES AGAP 9.6 10.0 - 20.0 08/14/2014 [facility] BACTERIAL - SEROLOGY MRSA by PCR Negative 7 (08/13/14 7:30 PM) 08/14/2014 <sup>7</sup>Interpretive Fernandez a: Interpretive Data: The Dilip LightCycler MRSA assay is a qualitative test for the direct detection of nasal colonization with methicillin-resistant Staphylococcus aureus (MRSA) to aid in the prevention and control of MRSA infections in healthcare settings. A positive result does not indicate an infection or require treatment. A negative result does not exclude colonization or infection.

The polymerase chain reaction (PCR) assay detects a proprietary sequence indicative of the integration of the SCCmec cassette into the Staphylococcus aureus chromosome, indicating the presence of MRSA DNA. The assay utilizes FDA cleared IVD reagents. Performance characteristics have been verified by the [facility] within the [facility]. The [facility] is authorized under the Clinical Laboratory Improvement Amendment of 1988 (CLIA-88) to perform high complexity testing. [facility] CHEM PANEL Osmolality 249 280 - 300 08/14/2014 [facility] CHEM PANEL Procalcitonin Lvl <0.05 ng/mL 0.00 - 0.10 08/14/2014 [facility] THYROID PANEL TSH 2.530 0.360 - 3.740 08/14/2014 [facility] URINE AND STOOL UA Mucus Few /LPF None Seen /LPF 08/13/2014 [facility] URINE AND STOOL UA Bacteria Occasional /HPF None Seen /HPF 08/13/2014 [facility] URINE AND STOOL UA RBC 0-2 /HPF 0 - 2 08/13/2014 [facility] URINE AND STOOL UA WBC 3-5 /HPF None Seen /HPF 08/13/2014 [facility] URINE AND STOOL UA Sq Epi Few /LPF Few /LPF 08/13/2014 [facility] URINE AND STOOL UA Nitrite Negative (08/13/14 4:15 PM) Negative 08/13/2014 [facility] URINE AND STOOL UA Urobilinogen 0.2 0.1 - 1.0 08/13/2014 [facility] URINE AND STOOL UA Blood Negative (08/13/14 4:15 PM) Negative 08/13/2014 [facility] URINE AND STOOL UA Ketones >=80 mg/dL Negative mg/dL 08/13/2014 [facility] URINE AND STOOL UA Glucose Negative (08/13/14 4:15 PM) Negative 08/13/2014 [facility] URINE AND STOOL UA Leuk Est Trace *ABN* (08/13/14 4:15 PM) Negative 08/13/2014 [facility] URINE AND STOOL UA Protein Negative (08/13/14 4:15 PM) Negative 08/13/2014 [facility] URINE AND STOOL UA pH 6.5 5.0 - 8.0 08/13/2014 [facility] URINE AND STOOL UA Bili Negative *NA* (08/13/14 4:15 PM) Negative 08/13/2014 [facility] URINE AND STOOL UA Turbidity Clear (08/13/14 4:15 PM) Clear 08/13/2014 [facility] URINE AND STOOL UA Color Yellow *NA* (08/13/14 4:15 PM) Yellow 08/13/2014 [facility] URINE AND STOOL UA Spec Grav 1.020 <=1.030 08/13/2014 [facility] URINE CHEM U Osmolality 592 300 - 800 08/13/2014 [facility] CARDIAC ENZYMES Total CK 63 12 - 191 08/13/2014 [facility] CARDIAC ENZYMES Troponin-I <0.02 0.00 - 0.40 08/13/2014 [facility] CARDIAC ENZYMES CK MB 0.7 0.5 - 3.6 08/13/2014 [facility] CARDIAC ENZYMES CK MB Index 1.1 0.0 - 2.5 08/13/2014 [facility] CHEM PANEL Bili Total 0.7 0.2 - 1.3 08/13/2014 [facility] CHEM PANEL ALT 24 0 - 65 08/13/2014 [facility] CHEM PANEL AST 28 0 - 37 08/13/2014 [facility] CHEM PANEL Alk Phos 62 39 - 136 08/13/2014 [facility] CHEM PANEL A/G Ratio 1.2 0.7 - 1.6 08/13/2014 [facility] CHEM PANEL B/C Ratio 20 6 - 25 08/13/2014 [facility] CHEM PANEL Total Protein 7.1 6.4 - 8.4 08/13/2014 [facility] CHEM PANEL Globulin 3.3 2.0 - 4.0 08/13/2014 [facility] CHEM PANEL Albumin Lvl 3.8 3.5 - 5.0 08/13/2014 [facility] HEMATOLOGY MPV 7.8 7.4 - 10.4 08/13/2014 [facility] HEMATOLOGY WBC 7.3 3.7 - 10.4 08/13/2014 [facility] HEMATOLOGY RBC 4.61 4.20 - 5.40 08/13/2014 [facility] HEMATOLOGY Platelet 337 133 - 450 08/13/2014 [facility] HEMATOLOGY MCHC 33.0 32.0 - 36.0 08/13/2014 [facility] HEMATOLOGY RDW 13.0 11.5 - 14.5 08/13/2014 [facility] HEMATOLOGY MCH 29.0 27.0 - 31.0 08/13/2014 [facility] HEMATOLOGY MCV 87.8 80.0 - 98.0 08/13/2014 [facility] HEMATOLOGY Hct 40.5 36.0 - 48.0 08/13/2014 [facility] HEMATOLOGY Hgb 13.4 12.0 - 16.0 08/13/2014 [facility] HEMATOLOGY Segs-Bands # 4.5 1.5 - 8.1 08/13/2014 [facility] HEMATOLOGY Eosinophils 2.5 0.0 - 4.0 08/13/2014 [facility] HEMATOLOGY Basophils 0.4 0.0 - 1.0 08/13/2014 [facility] HEMATOLOGY Monocytes 7.4 2.0 - 12.0 08/13/2014 [facility] HEMATOLOGY Lymphocytes 28.1 20.0 - 40.0 08/13/2014 [facility] HEMATOLOGY Lymphocytes # 2.1 1.0 - 5.5 08/13/2014 [facility] HEMATOLOGY Monocytes # 0.5 0.0 - 0.8 08/13/2014 [facility] HEMATOLOGY Basophils # 0.0 0.0 - 0.2 08/13/2014 [facility] HEMATOLOGY Eosinophils # 0.2 0.0 - 0.5 08/13/2014 [facility] HEMATOLOGY Segs 61.6 45.0 - 75.0 08/13/2014 [facility] URINALYSIS UA Mucus Many /LPF *ABN* (02/24/2013 13:30:28) None S een 02/24/2013 ABN [facility] URINALYSIS UA Bacteria Occas ional /HPF (02/24/2013 13:30:28) None S een 02/24/2013 Normal [facility] URINALYSIS UA RBC 0-2 / HPF (02/24/2013 13:30:28) 0 - 2 02/24/2013 Normal [facility] URINALYSIS UA WBC 0-2 / HPF (02/24/2013 13:30:28) None S een 02/24/2013 Normal [facility] URINALYSIS UA Sq Epi Rare /LPF (02/24/2013 13:30:28) Few 02/24/2013 Normal [facility] URINALYSIS Micro? Perfo rmed (02/24/2013 13:30:28) 02/24/2013 Normal [facility] URINALYSIS UA Leuk Est Negat glynn (02/24/2013 13:30:28) Negati ve 02/24/2013 Normal [facility] URINALYSIS UA Nitrite Negat glynn (02/24/2013 13:30:28) Negati ve 02/24/2013 Normal [facility] URINALYSIS UA Urobilinogen 0.2 0.1 - 1.0 02/24/2013 Normal [facility] URINALYSIS UA Bili Negat glynn *NA* (02/24/2013 13:30:28) Negati ve 02/24/2013 NA [facility] URINALYSIS UA Blood Negat glynn (02/24/2013 13:30:28) Negati ve 02/24/2013 Normal [facility] URINALYSIS UA Ketones Negat glynn *NA* (02/24/2013 13:30:28) Negati ve 02/24/2013 NA [facility] URINALYSIS UA Glucose Negat glynn (02/24/2013 13:30:28) Negati ve 02/24/2013 Normal [facility] URINALYSIS UA pH 6.0 5.0 - 8.0 02/24/2013 Normal [facility] URINALYSIS UA Protein Negat glynn (02/24/2013 13:30:28) Negati ve 02/24/2013 Normal [facility] URINALYSIS UA Spec Grav >=1.0 30 *ABN* (02/24/2013 13:30:28) <=1.030 02/24/2013 ABN [facility] URINALYSIS UA Turbidity Clear (02/24/2013 13:30:28) Clear 02/24/2013 Normal [facility] URINALYSIS UA Color Yello w *NA* (02/24/2013 13:30:28) Yellow 02/24/2013 NA [facility] CHEMISTRY CK MB Index 1.5 0.0 - 2.5 02/24/2013 Normal [facility] CHEMISTRY A/G Ratio 1.2 0.7 - 1.6 02/24/2013 Normal [facility] CHEMISTRY Total Protein 7.2 6.4 - 8.4 02/24/2013 Normal [facility] CHEMISTRY ALT 31 0 - 65 02/24/2013 Normal [facility] CHEMISTRY Albumin Lvl 3.9 3.5 - 5.0 02/24/2013 Normal [facility] CHEMISTRY Alk Phos 67 39 - 136 02/24/2013 Normal [facility] CHEMISTRY Bili Total 0.5 0.2 - 1.3 02/24/2013 Normal [facility] CHEMISTRY Calcium Lvl 9.2 8.5 - 10.5 02/24/2013 Normal [facility] CHEMISTRY Chloride Lvl 98 95 - 109 02/24/2013 Normal [facility] CHEMISTRY CO2 27 24 - 32 02/24/2013 Normal [facility] CHEMISTRY Potassium Lvl 3.9 3.5 - 5.1 02/24/2013 Normal [facility] CHEMISTRY AGAP 12.9 10.0 - 20.0 02/24/2013 Normal [facility] CHEMISTRY AST 21 0 - 37 02/24/2013 Normal [facility] CHEMISTRY B/C Ratio 31 6 - 25 02/24/2013 HI [facility] CHEMISTRY Globulin 3.3 2.0 - 4.0 02/24/2013 Normal [facility] CHEMISTRY Sodium Lvl 134 135 - 145 02/24/2013 LOW [facility] CHEMISTRY BUN 22 7 - 22 02/24/2013 Normal [facility] CHEMISTRY Creatinine Lvl 0.7 0.5 - 1.4 02/24/2013 Normal [facility] CHEMISTRY Glucose Lvl 89 70 - 99 02/24/2013 Normal <sup>2</sup>Interpretive Data: Adult ref erence range values reflect the clinical guidelines
of the [place] [employer]. [facility] CHEMISTRY eGFR 89 02/24/2013 NA <sup>1</sup>Result Comment: The eGFR is calculated using the CKD-EPI formula. In most young, healthy individuals the eGFR will be >90 mL/min/1.73m2. The eGFR declines with age. An eGFR of 60-89 may be normal in some populations, particularly the elderly, for whom the CKD-EPI formula has not been extensively validated. Use of the eGFR is not recommended in the following populations:& lt;br/>
Individuals with unstable creatinine concentrations, including patients and those with serious co-morbid conditions.

Patients with extremes in muscle mass or diet.

The data above are obtained from the National Kidney Disease Education Program (NKDEP) which additionally recommends that when the eGFR is used in patients with extremes of body mass index for purposes of drug dosing, the eGFR should be multiplied by the estimated BMI. [facility] CHEMISTRY Total CK 54 12 - 191 02/24/2013 Normal [facility] CHEMISTRY CK MB 0.8 0.5 - 3.6 02/24/2013 Normal [facility] CHEMISTRY Troponin-I <0.02 0.00 - 0.40 02/24/2013 Normal [facility] HEMATOLOGY Monocytes # 0.5 0.0 - 0.8 02/24/2013 Normal [facility] HEMATOLOGY Eosinophils # 0.1 0.0 - 0.5 02/24/2013 Normal [facility] HEMATOLOGY Basophils 0.9 0.0 - 1.0 02/24/2013 Normal [facility] HEMATOLOGY Segs-Bands # 4.5 1.5 - 8.1 02/24/2013 Normal [facility] HEMATOLOGY Lymphocytes # 1.5 1.0 - 5.5 02/24/2013 Normal [facility] HEMATOLOGY Eosinophils 1.7 0.0 - 4.0 02/24/2013 Normal [facility] HEMATOLOGY Segs 67.0 45.0 - 75.0 02/24/2013 Normal [facility] HEMATOLOGY Lymphocytes 22.6 20.0 - 40.0 02/24/2013 Normal [facility] HEMATOLOGY Monocytes 7.8 2.0 - 12.0 02/24/2013 Normal [facility] HEMATOLOGY Basophils # 0.1 0.0 - 0.2 02/24/2013 Normal [facility] HEMATOLOGY PT 11.9 12.0 - 14.7 02/24/2013 LOW [facility] HEMATOLOGY INR 0.86 0.85 - 1.17 02/24/2013 Normal <sup>3</sup>Interpretive Data: RECOMMEND ED RANGES FOR PROTIME INR:
2.0-3.0 for most medical and surgical thromboembolic states.
2.5-3.5 for artificial heart valves and recurrent embolism.

INR SHOULD BE USED ONLY FOR PATIENTS ON STABLE ANTICOAGULANT THERAPY. [facility] HEMATOLOGY PTT 28.9 22.9 - 35.8 02/24/2013 Normal <sup>4</sup>Interpretive Data: Heparin T herapeutic Range: 57 - 92 Seconds [facility] HEMATOLOGY WBC 6.8 3.7 - 10.4 02/24/2013 Normal [facility] HEMATOLOGY RBC 4.35 4.20 - 5.40 02/24/2013 Normal [facility] HEMATOLOGY Hgb 12.7 12.0 - 16.0 02/24/2013 Normal [facility] HEMATOLOGY Hct 38.4 36.0 - 48.0 02/24/2013 Normal [facility] HEMATOLOGY MCV 88.3 81.0 - 99.0 02/24/2013 Normal [facility] HEMATOLOGY MCH 29.2 27.0 - 31.0 02/24/2013 Normal [facility] HEMATOLOGY MCHC 33.1 32.0 - 36.0 02/24/2013 Normal [facility] HEMATOLOGY RDW 14.3 11.5 - 14.5 02/24/2013 Normal [facility] HEMATOLOGY MPV 8.3 7.4 - 10.4 02/24/2013 Normal [facility] HEMATOLOGY Platelet 273 133 - 450 02/24/2013 Normal [facility] HEMATOLOGY Monocytes 11.0 2.0 - 12.0 04/16/2012 Normal [facility] HEMATOLOGY Lymphocytes 18.3 20.0 - 40.0 04/16/2012 LOW [facility] HEMATOLOGY Eosinophils 0.2 0.0 - 4.0 04/16/2012 Normal [facility] HEMATOLOGY Basophils 0.3 0.0 - 1.0 04/16/2012 Normal [facility] HEMATOLOGY Monocytes # 0.8 0.0 - 0.8 04/16/2012 Normal [facility] HEMATOLOGY Segs-Bands # 5.3 1.5 - 8.1 04/16/2012 Normal [facility] HEMATOLOGY Lymphocytes # 1.4 1.0 - 5.5 04/16/2012 Normal [facility] HEMATOLOGY Eosinophils # 0.0 0.0 - 0.5 04/16/2012 Normal [facility] HEMATOLOGY Basophils # 0.0 0.0 - 0.2 04/16/2012 Normal [facility] HEMATOLOGY Segs 70.2 45.0 - 75.0 04/16/2012 Normal [facility] HEMATOLOGY Platelet 260 133 - 450 04/16/2012 Normal [facility] HEMATOLOGY MPV 8.8 7.4 - 10.4 04/16/2012 Normal [facility] HEMATOLOGY MCH 29.8 27.0 - 31.0 04/16/2012 Normal [facility] HEMATOLOGY MCHC 34.6 32.0 - 36.0 04/16/2012 Normal [facility] HEMATOLOGY RDW 12.6 11.5 - 14.5 04/16/2012 Normal [facility] HEMATOLOGY Hct 30.6 36.0 - 48.0 04/16/2012 LOW [facility] HEMATOLOGY WBC 7.5 3.7 - 10.4 04/16/2012 Normal [facility] HEMATOLOGY Hgb 10.6 12.0 - 16.0 04/16/2012 LOW [facility] HEMATOLOGY MCV 86.2 81.0 - 99.0 04/16/2012 Normal [facility] HEMATOLOGY RBC 3.55 4.20 - 5.40 04/16/2012 LOW [facility] BEDSIDE GLUCOSE TESTING Gluc POC Lif scn 174 70 - 99 04/16/2012 HI <sup>1</sup>Interpretive Data: Upper Reportable Limit: 200 mg/dL. [facility] CHEMISTRY POC V pH 7.38 7.28 - 7.42 04/15/2012 Normal [facility] CHEMISTRY POC V K 4.1 3.5 - 5.1 04/15/2012 Normal [facility] CHEMISTRY POC V Ion Ca 1.15 1.16 - 1.30 04/15/2012 LOW [facility] CHEMISTRY POC V Na 129 135 - 145 04/15/2012 LOW [facility] CHEMISTRY POC V PCO2 43 38 - 52 04/15/2012 Normal [facility] CHEMISTRY POC V PO2 91 20 - 49 04/15/2012 HI [facility] CHEMISTRY POC V O2 Sat 97.0 40.0 - 70.0 04/15/2012 [facility] CHEMISTRY POC V BE 0 -2-2 - 2 04/15/2012 Normal [facility] CHEMISTRY POC V Glu 103 70 - 99 04/15/2012 [facility] CHEMISTRY POC V HCO3 25 22 - 26 04/15/2012 Normal [facility] CHEMISTRY POC V Hct 32.0 36.0 - 48.0 04/15/2012 LOW [facility] CHEMISTRY POC V Temp 37.0 04/15/2012 NA [facility] CHEMISTRY POC V Source MIKEY 04/15/2012 NA [facility] BLOOD BANK RESULTS Antibody Scrn Negative (04/12/2012 12:13:00) 04/12/2012 Normal [facility] BLOOD BANK RESULTS ABO/Rh A POS 04/12/2012 Unknown [facility] CHEMISTRY Glucose Lvl 88 70 - 99 04/12/2012 Normal <sup>2</sup>Interpretive Data: Adult ref erence range values reflect the clinical guidelines
of the [place] [employer]. [facility] CHEMISTRY Calcium Lvl 9.7 8.5 - 10.5 04/12/2012 Normal [facility] CHEMISTRY Creatinine Lvl 0.7 0.5 - 1.4 04/12/2012 Normal [facility] CHEMISTRY BUN 14 7 - 22 04/12/2012 Normal [facility] CHEMISTRY CO2 29 24 - 32 04/12/2012 Normal [facility] CHEMISTRY Chloride Lvl 95 95 - 109 04/12/2012 Normal [facility] CHEMISTRY AGAP 12.5 10.0 - 20.0 04/12/2012 Normal [facility] CHEMISTRY Potassium Lvl 4.5 3.5 - 5.1 04/12/2012 Normal [facility] CHEMISTRY Sodium Lvl 132 135 - 145 04/12/2012 LOW [facility] HEMATOLOGY MCH 29.8 27.0 - 31.0 04/12/2012 Normal [facility] HEMATOLOGY MCHC 34.2 32.0 - 36.0 04/12/2012 Normal [facility] HEMATOLOGY RDW 12.5 11.5 - 14.5 04/12/2012 Normal [facility] HEMATOLOGY Platelet 319 133 - 450 04/12/2012 Normal [facility] HEMATOLOGY MPV 8.9 7.4 - 10.4 04/12/2012 Normal [facility] HEMATOLOGY WBC 6.0 3.7 - 10.4 04/12/2012 Normal [facility] HEMATOLOGY RBC 4.66 4.20 - 5.40 04/12/2012 Normal [facility] HEMATOLOGY Hgb 13.9 12.0 - 16.0 04/12/2012 Normal [facility] HEMATOLOGY MCV 87.1 81.0 - 99.0 04/12/2012 Normal [facility] HEMATOLOGY Hct 40.6 36.0 - 48.0 04/12/2012 Normal [facility] HEMATOLOGY Eosinophils # 0.0 0.0 - 0.5 04/12/2012 Normal [facility] HEMATOLOGY Monocytes # 0.3 0.0 - 0.8 04/12/2012 Normal [facility] HEMATOLOGY Basophils # 0.0 0.0 - 0.2 04/12/2012 Normal [facility] HEMATOLOGY Monocytes 5.6 2.0 - 12.0 04/12/2012 Normal [facility] HEMATOLOGY Eosinophils 0.8 0.0 - 4.0 04/12/2012 Normal [facility] HEMATOLOGY Basophils 0.3 0.0 - 1.0 04/12/2012 Normal [facility] HEMATOLOGY Segs-Bands # 3.9 1.5 - 8.1 04/12/2012 Normal [facility] HEMATOLOGY Lymphocytes # 1.7 1.0 - 5.5 04/12/2012 Normal [facility] HEMATOLOGY Segs 64.6 45.0 - 75.0 04/12/2012 Normal [facility] HEMATOLOGY Lymphocytes 28.7 20.0 - 40.0 04/12/2012 Normal [facility] URINALYSIS UA Blood Negat glynn (04/12/2012 12:13:00) Negati ve 04/12/2012 Normal [facility] URINALYSIS UA Bili Negat glynn *NA* (04/12/2012 12:13:00) Negati ve 04/12/2012 NA [facility] URINALYSIS UA Urobilinogen 0.2 0.1 - 1.0 04/12/2012 Normal [facility] URINALYSIS Micro? Not I ndicated (04/12/2012 12:13:00) 04/12/2012 Normal [facility] URINALYSIS UA Leuk Est Negat glynn (04/12/2012 12:13:00) Negati ve 04/12/2012 Normal [facility] URINALYSIS UA Nitrite Negat glynn (04/12/2012 12:13:00) Negati ve 04/12/2012 Normal [facility] URINALYSIS UA pH 6.0 5.0 - 8.0 04/12/2012 Normal [facility] URINALYSIS UA Turbidity Clear (04/12/2012 12:13:00) Clear 04/12/2012 Normal [facility] URINALYSIS UA Spec Grav >=1.0 30 *ABN* (04/12/2012 12:13:00) <=1.030 04/12/2012 ABN [facility] URINALYSIS UA Color Yello w *NA* (04/12/2012 12:13:00) Yellow 04/12/2012 NA [facility] URINALYSIS UA Ketones Trace *ABN* (04/12/2012 12:13:00) Negati ve 04/12/2012 ABN [facility] URINALYSIS UA Protein Negat glynn (04/12/2012 12:13:00) Negati ve 04/12/2012 Normal [facility] URINALYSIS UA Glucose Negat glynn (04/12/2012 12:13:00) Negati ve 04/12/2012 Normal [facility] Pathology Reports No Data Provided for This Section Diagnostic Reports Report Value Date Source Breast Mammo Scrn ALEX w gretta incl CAD MA BILATERAL DIGITAL SCREENING MAMMOGRAM 3D/2D WITH CAD: 11/08/2019 CLINICAL: /Z12.31 Encounter For Screening Mammogram For Malignant Neoplasm Of Docmwj87.911 Malignant Neoplasm Of Unspecified Site Of Right Female Breastt. Current study was evaluated with a Computer Aided Detection (CAD) system. COMPARISON:Comparison is made to exams dated: 10/17/2018 mammogram, 10/06/2017 mammogram - [facility], 08/28/2016 mammogram, 08/05/2015 mammogram, and 10/03/2014 mammogram - [facility]. TECHNIQUE: Digital Breast Tomosynthesis was performed and utilized for Interpretation. GTRAN Version 1.1 was utilized for computer aided detection. FINDINGS: The tissue of both breasts is extremely dense. This may lower the sensitivity of mammography. There are benign appearing calcifications in the right breast. There also are benign appearing vascular calcifications and calcifications in the left breast. Additionally, there is a biopsy clip in the right breast. No significant masses, calcifications, or other findings are seen in either breast. There has been no significant interval change. IMPRESSION: BENIGN RECOMMENDATION:There is no mammographic evidence of malignancy. A 1 year screening mammogram is recommended.(11/08/2020) This exam was interpreted at [id number] for [facility], SL 12. Luke Albarran M.D. ap/penrad:11/10/2019 15:47:14 Risk Management Manager(s): Brian Cortes [facility] letter sent: BI-RADS 1/2 Dense Mammogram BI-RADS: 2 Benign 11/08/2019 [facility] PET CT Breast CA restaging PRO CEDURE INFORMATION: Exam: PET/CT Skull Base to Mid-thigh Exam date and time: 08/14/2019 11:47 AM Age: 74 years old Clinical history: Malignant neoplasm of upper-outer quadrant of right female breast; Additional info: C50.411 malignant neoplasm of upper-outer quadrant of right female breast/dlp = 227.05 mgy*cm; Ctdivol = 3.05 mgy TECHNIQUE MORE: CT imaging performed at this location utilizes radiation dose optimization techniques which include one or more of the following: Automated exposure control, adjustment of the mA and/or kV according to patient size, use of iterative reconstruction technique. LABS AND CLINICAL REPORTS: Glucose: 65 TECHNIQUE: Imaging protocol: Following at least four-hour fasting and approximately one hour following the injection of F-18-FDG, low dose CT images were obtained from the orbital meatal line through the pelvis. Then, PET images were obtained through the same region. Attenuation corrected images were constructed using the CT scan. Fused images of PET and CT were reviewed. The standardized uptake values (SUV) reported below are maximum values within a region of interest, expressed in gm/ml. Radiopharmaceutical: 13.32 mCi F18-FDG, IV Injection site: Left wrist IV COMPARISON: PT PET CT BREAST CA RESTAGING 01/23/2019 8:55 AM FINDINGS: Head: No abnormal areas of tracer activity in the visualized head. Neck: No abnormal areas of tracer activity about the neck. Bilateral carotid artery calcification. Chest: No abnormal areas of tracer activity in the chest. Calcification along the great vessels, thoracic aortic calcification and coronary artery calcification. Abdomen and Pelvis: No abnormal areas of tracer activity in the abdomen or pelvis. Patient is status post cholecystectomy. Low-density area in the inferior portion of the anterior segment of the right lobe of the liver similar to prior study may just represent a simple cyst. Abdominal aortic and bilateral iliac artery calcification. Bilateral femoral artery calcification. Bones/joints: No abnormal areas of tracer activity identified within the bones. Soft tissues: No abnormal areas of tracer activity identified within the soft tissues. IMPRESSION: Unremarkable PET/CT scan. Ovi Anguiano MD On 08/14/2019 14:25:47; [id number] 08/14/2019 [facility] Spine Thoracic wo contrast MRI Clinical Indication: - M51.34 Other intervertebral disc degeneration, thoracic region Comparison: Comparison is made to the 04/05/2017 exam. TECHNIQUE: Multiplanar T1, T2, STIR weighted noncontrast MRI of the thoracic spine is performed on the 1.5 Mandie magnet. FINDINGS: ALIGNMENT AND GENERAL SURVEY: Chronic compression fracture deformities are present in a patient status post a vertebroplasty at T6-T10. The configuration is stable. There is a 2 mm retropulsion of the superior endplate at T6-T7 and T7-T8 with minimal spinal stenosis and no compromise of the cord. There is no osseous metastatic disease. There is no acute compression fracture deformity. Scoliosis is present. There is no pleural effusion or paravertebral extraosseous soft tissue mass. SPINAL CORD: The thoracic spine spinal cord is normal in size and signal. The CSF space is unremarkable. The conus medullaris ends at the L1 level. DISK SPACES: There is no extruded thoracic disc herniation. IMPRESSION: Chronic compression fracture deformities are present in a patient status post a vertebroplasty at T6-T10. The configuration is stable. There is a 2 mm retropulsion of the superior endplate at T6-T7 and T7-T8 with minimal spinal stenosis and no compromise of the cord. SL: REYNA 04/25/2019 [facility] Spine lumbar wo contrast MRI C linical Indication: - M51.36 Other intervertebral disc degeneration, lumbar region Comparison: None TECHNIQUE: Multiplanar T1, T2, STIR weighted noncontrast MRI of the lumbar spine is performed on the 1.5 Mandie magnet. FINDINGS: ALIGNMENT AND GENERAL ASSESSMENT: The conus medullaris is normally positioned and there is no intrathecal mass. There is no acute compression fracture deformity or osseous metastatic disease. The psoas muscles are normal. There is atrophic changes to the lower spinae erecta muscles. The partially visualized sacroiliac joints are intact. There is a lobular suspected 2.7 cm hemangioma in the right lobe the liver. DISC SPACES: T12-L1: The disc space is desiccated. There is a chronic superior plate fracture deformity/Schmorl's node and compensatory widening of the disc. There is a 2 mm bulge eminence without central or foraminal stenosis. L1-L2: The disc space is desiccated and narrowed and there is a 3 mm lateral bulge in the annulus, 2 mm retrolisthesis with minimal bilateral subarticular proximal foraminal stenosis. L2-L3: There is a 2 mm bulge of the annulus without central or significant foraminal stenosis. L3-L4: There is a 2 mm bulge of the annulus with a central annular fissure. There are hypertrophic facets without central or foraminal stenosis. L4-L5: There is a 5 mm anterolisthesis and bulging of the annulus with a right spondylolysis, Modic 1 signal alteration of the pars and facets. There is hypertrophic degenerative change of facet joints and ligamentum flavum hypertrophy with severe lateral and central canal stenosis and minimal bilateral foraminal stenosis. L5-S1: The disc space is desiccated and narrowed. There is minimal right lateral spondylosis without central or foraminal stenosis. Numbering of lumbar segments assumes the lower disc space to be L5-S1 rather rudimentary S1-S2 disc space. IMPRESSION: Multilevel discogenic disease is present as described, most significantly at L4-L5. 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 PET images were reviewed in the axial, coronal and sagittal orthogonal projections. Non-contrast enhanced CT imaging was for performed for attenuation correction, localization and limited diagnostic purposes. Serum glucose: 74 mg/dL. Dose: DLP = 269.13 mGy*cm; CTDIvol = 3.03 mGy; FINDINGS: NECK: There are no foci of abnormal metabolic activity. CHEST: There are no foci of abnormal metabolic activity. Atherosclerotic vascular disease. Left subclavian venous access port extends to the upper SVC. ABDOMEN: There are no foci of abnormal metabolic activity. Atherosclerotic vascular disease. Previous cholecystectomy. Benign-appearing liver cyst. PELVIS: There are no foci of abnormal metabolic activity. BONES: There are no foci of abnormal metabolic activity. Physiologic F-18 labeled FDG distribution is noted in the brain, heart, liver, spleen, gastrointestinal and genitourinary tracts. IMPRESSION: No abnormal metabolic activity on F-18 labeled FDG-PET CT imaging examination to suggest malignancy. SL: [id number] 01/23/2019 [facility] Breast Mammo Diag ALEX incl CAD MA BILATERAL DIGITAL DIAGNOSTIC MAMMOGRAM WITH CAD: 10/17/2018 CLINICAL: C50.911 Malignant Neoplasm Of Unspecified Site Of Right Female Breast/C50.911 Malignant Neoplasm Of Unspecified Site Of Right Female Breast. Current study was evaluated with a Computer Aided Detection (CAD) system. COMPARISON:Comparison is made to exams dated: 10/06/2017 mammogram - [facility], 08/28/2016 mammogram, 08/05/2015 mammogram, 10/03/2014 mammogram - [facility], and 11/15/2013 mammogram - [facility]. TECHNIQUE: Mammographic views were obtained using digital acquisition. Current study was also evaluated with a Computer Aided Detection (CAD) system. FINDINGS: The tissue of both breasts is extremely dense. This may lower the sensitivity of mammography. Positioning was difficult due to patient factors. These are the best images possible. There are stable calcifications in both breasts. There also is a biopsy clip in the right breast which tucker the site of known ILC. A port is noted in the left upper outer breast. IMPRESSION: KNOWN BIOPSY PROVEN MALIGNANCY RECOMMENDATION:No interval changes or new findings. Stable apperance of the biopsy site which showed ILC. These findings were discussed with the patient who was instructed to monitor the area and return if there are any changes. A follow-up mammogram in 12 months is recommended.(10/17/2019) Professional services are provided by the [facility]. Alfonso Escalona M.D. cm/:10/17/2018 11:54:30 Risk Management Manager(s): Chante Trevino, RT(R)(M), Brian Todd letter sent: BI-RADS 6 Mammogram BI-RADS: 6 Known biopsy proven malignancy 10/17/2018 [facility] Bone Density [employer] [place] Patient Name: CECILY WALTER : 1945; Age: 72 years y/o Female MR: [id number] Study: Bone Density [employer] [place] 08/01/2018 11:12 AM [employer] Ordering Physician: Juanjose Meyer MD Clinical Indication: - M81.0 Age-related osteoporosis without current pathological fracture. Comparison: None FINDINGS: The axial lumbar bone mineral density is 95% of the expected age matched bone mass with a T-score -2.7. Axial lumbar average BMD is 0.754 g/cm2. The left femoral neck bone mineral density is 100% of the expected age matched bone mass with a T-score of -2. Left femoral neck BMD is 0.66 g/cm2. The total femoral BMD is 0.69 g/cm2. IMPRESSION: 1. Osteoporosis of the lumbar spine. 2. Osteopenia of the left femoral neck. The World Health Organization has established that OSTEOPOROSIS occurs at -2.5 or more standard deviations (SD) below peak bone mass. OSTEOPENIA (low bone mass) occurs at -1.0 standard deviations to -2.5 standard deviations below peak bone mass. SL: [id number] 08/01/2018 [facility] PET CT Breast CA restaging PET CT Breast CA restaging Age: 72 years /o Female Clinical Indication: C50.919 Malignant neoplasm of unspecified site of unspecified female breast -restaging. Right breast surgery 2015. Invasive pleomorphic lobular carcinoma. Comparison: 12/20/[address] TECHNIQUE: Positron emission tomography imaging is performed 48.8 minutes after left arm intravenous administration of 14.5 mCi of F-18 labeled FDG, from the skull base to the mid thigh region. PET images were reviewed in the axial, coronal and sagittal orthogonal projections. Non-contrast enhanced CT imaging was for performed for attenuation correction, localization and limited diagnostic purposes. Serum glucose: 68 mg/dL. Dose: DLP= 264.99 mGy*cm, CTDIvol= 2.98 mGy; FINDINGS: Left-sided venous access port with catheter tip in the upper SVC. NECK: There are no foci of abnormal metabolic activity. CHEST: There are no foci of abnormal metabolic activity. ABDOMEN: There are no foci of abnormal metabolic activity. Advanced atherosclerotic vascular disease of the aorta and iliac branches.Previous cholecystectomy. PELVIS: There are no foci of abnormal metabolic activity. Mild increased stool volume in the right colon. BONES: Multiple vertebroplasty procedures noted on the CT examination in the midthoracic spine on 5 consecutive levels. Physiologic F-18 labeled FDG distribution is noted in the brain, heart, liver, spleen, gastrointestinal and genitourinary tracts. IMPRESSION: No abnormal metabolic activity on F-18 labeled FDG-PET CT imaging examination to suggest malignancy. SL: [id number] 07/11/2018 [facility] Spine lumbar wo contrast MRI C linical Indication: M54.16 Radiculopathy, lumbar region - M48.061 Spinal stenosis, lumbar region without neurogenic claudication. M51.36 Other intervertebral disc degeneration, lumbar region Comparison: Comparison is made to the MR study of 04/05/2017 TECHNIQUE: Multiplanar T1, T2, STIR weighted noncontrast MRI of the lumbar spine is performed on the 1.5 Mandie magnet. FINDINGS: ALIGNMENT AND GENERAL ASSESSMENT: The conus medullaris is normally positioned and there is no intrathecal mass. There is no arachnoiditis, discitis or osteomyelitis or an there is atrophic changes to the spinae erecta muscles. The psoas muscles are normal. The partially visualized sacroiliac joints are intact. DISC SPACES: T12-L1: There is a chronic Schmorl's node, superior plate fracture deformity of L1. The configuration is stable. There is a 2 mm bulge of the annulus without central or foraminal stenosis. L1-L2: There is a 2 mm anterolisthesis and 3 mm right lateral bulge of the annulus with minimal foraminal stenosis and no central canal stenosis nor interval change. L2-L3: There is a 2 mm bulge of the annulus without central or foraminal stenosis. L3-L4: There is a 2 mm diffuse bulge in the annulus with a central annular fissure and no central or foraminal stenosis. L4-L5: There is no significant disc bulge, protrusion, or degenerative change and no spinal or foraminal stenosis. Numbering of the lumbar segments assumes the presence of a rudimentary S1-S2 disc space. At the rudimentary disc space, there is no central or foraminal stenosis. At the L5-S1 disc space there is a persistent 6 mm anterolisthesis and diffuse bulge of the annulus. There is minimal spondylosis. There is hypertrophic change ligamentum flavum with a depth of 6 mm, a 3 mm dorsal cyst, and degenerative change of facet joints with severe left lateral recess stenosis and progressive central canal stenosis. There is minimal bilateral foraminal stenosis. There is loss of height of the anterior superior plate of L5 with a suspected unfused apophysis, which is stable. IMPRESSION: Numbering of the lumbar segments assumes the presence of a rudimentary S1-S2 disc space. At the rudimentary disc space, there is no central or foraminal stenosis. At the L5-S1 disc space there is a persistent 6 mm anterolisthesis and diffuse bulge of the annulus. There is minimal spondylosis. There is hypertrophic change ligamentum flavum with a depth of 6 mm, a 3 mm dorsal cyst, and degenerative change of facet joints with severe left lateral recess stenosis and progressive central canal stenosis. There is minimal bilateral foraminal stenosis. There is loss of height of the anterior superior plate of L5 with a suspected unfused apophysis, which is stable. SL: REYNA 06/19/2018 [facility] wo contrast MRI EXAM: MR L EFT HIP WITHOUT CONTRAST DATE: 06/19/2018 7:16 AM CDT INDICATION: M54.16 Radiculopathy, lumbar region - M70.62 Trochanteric bursitis, left hip. M51.36 Other intervertebral disc degeneration, lumbar region. COMPARISON: None. TECHNIQUE: Multiplanar, multisequence MR noncontrast imaging of the left hip. FINDINGS: Labrum: No acetabular labral tear is seen. Ligaments: The visualized ligamentum teres and the capsular ligaments are intact. Muscles: No signal abnormality in the muscles. Mild hamstring tendinosis at the origin is seen. The gluteal tendons and iliopsoas tendon insertion are intact. Bone/cartilage: There is no evidence of osteonecrosis of the femoral head. Small left hip joint effusion is seen. Mild subchondral cystic changes along the anterosuperior acetabular rim are seen. Mild left hip osteoarthrosis is seen with mild superior joint space narrowing and marginal osseous spurring. Low- grade chondrosis along the superior acetabulum and superior femoral head is seen. Soft tissue: No extracapsular mass or cystic fluid collection is seen. Changes of prior hysterectomy are noted. No abnormality of the neurovascular structures. IMPRESSION: 1. Mild left hip osteoarthrosis with sma ll joint effusion. 2. Mild hamstring tendinosis. SL: [id number] 06/19/2018 [facility] PET CT Breast CA restaging Pat ient Name: CECILY WALTER : 1945; Age: 72 years y/o Female MR: [id number] Study: PET CT Breast CA restaging 12/20/2017 8:56 AM CDT Ordering Physician: Juanjose Meyer MD Clinical Indication: C50.919 Malignant neoplasm of unspecified site of unspecified female breast-- Restaging - DLP = 237.68 mGy-cm ; CTDIvol = 3.19 mGy; Comparison: 06/14/[address] TECHNIQUE: Positron emission tomography imaging is performed 49 minutes after administration of 15.42 mCi of F-18 labeled FDG IV at the left wrist, from the skull base to the mid thigh region. PET images were reviewed in the axial, coronal and sagittal orthogonal projections. Non-contrast enhanced CT imaging was for performed for attenuation correction, localization and limited diagnostic purposes. Serum glucose: 75 mg/dL. Dose: The total exam DLP is 237.68 mGy-cm. FINDINGS: NECK: There are no foci of abnormal metabolic activity. Cervical spondylosis. Atrophic thyroid gland. CHEST: There are no foci of abnormal metabolic activity. Left sided Port-A-Cath. Chronic volume loss at the dorsal basal lingula and the ventral basal left lower lobe. Coronary artery calcifications. ABDOMEN: There are no foci of abnormal metabolic activity. Small right hepatic lobe cyst. Status post cholecystectomy. PELVIS: There are no foci of abnormal metabolic activity. Status post hysterectomy. BONES: There are no foci of abnormal metabolic activity. Degenerative disc disease L5-S1. Chronic mild biconcave central endplate depression at L1. Vertebroplasty cement at multiple mid to lower thoracic vertebrae. Physiologic F-18 labeled FDG distribution is noted in the brain, heart, liver, spleen, gastrointestinal and genitourinary tracts. IMPRESSION: No abnormal metabolic activity on F-18 labeled FDG-PET CT imaging examination to suggest malignancy. SL: [id number] 12/20/2017 [facility] Breast Mammo Diag ALEX incl CAD MA BILATERAL DIGITAL DIAGNOSTIC MAMMOGRAM WITH CAD: 10/06/2017 CLINICAL: Malignant Neoplasm Of Unspecified Site Of Unspecified Female Breast/C50.919. Current study was evaluated with a Computer Aided Detection (CAD) system. COMPARISON:Comparison is made to exams dated: 08/28/2016 mammogram, 08/05/2015 mammogram, 10/03/2014 mammogram - [facility], 11/15/2013 mammogram, and 10/10/2012 mammogram - [facility]. TECHNIQUE: Mammographic views were obtained using digital acquisition. Current study was also evaluated with a Computer Aided Detection (CAD) system. FINDINGS: The tissue of both breasts is extremely dense. This may lower the sensitivity of mammography. There are benign appearing calcifications in both breasts. There also is a biopsy clip in the right breast. No significant masses, calcifications, or other findings are seen in either breast. There has been no significant interval change. IMPRESSION: BENIGN RECOMMENDATION:There is no mammographic evidence of malignancy. A 1 year screening mammogram is recommended.(10/07/2018) This exam was interpreted at [id number] for DERIK Todd. Professional services are provided by the [facility]. Alfonso Escalona M.D. cm/penrad:10/06/2017 11:21:39 Risk Management Manager(s): Chante Trevino, RT(R)(M), [facility] letter sent: BI-RADS 1/2 Dense Mammogram BI-RADS: 2 Benign 10/06/2017 DERIK Todd Wrist complete DX Study: Left wrist, 3 views Clinical Indication: Left wrist pain post fall Comparison: None FINDINGS: Multiple views of the left wrist show diffuse bony demineralization. There are multiple subcentimeter ossific bodies along the dorsum of the wrist, best seen on the lateral view. Overlying soft tissue swelling is seen. Chondrocalcinosis throughout the wrist is seen. Moderate triscaphe osteoarthrosis is noted. IMPRESSION: Subcentimeter ossific bodies along the dorsum of the wrist on the lateral view. Underlying triquetral bone fracture is suspected. SL: [id number] 09/05/2017 [facility] Chest 2 views DX Study: CHEST, PA AND LATERAL 07/22/2017 Clinical Indication: Dyspnea - R/O Pneumonia; Comparison: Chest 07/20/2017 FINDINGS: Left internal jugular Port-A-Cath terminates in the upper superior vena cava. Cardiac size is normal. There is minor aortic atherosclerosis. The lungs are emphysematous with interstitial scarring. There is more focal pleural and parenchymal scarring at the base of the left hemithorax. No pneumonia, vascular congestion or pleural effusion is seen. There is mild thoracic dextroscoliosis and generalized osteopenia. Multilevel vertebroplasty has been performed. Degenerative changes involve both shoulders. IMPRESSION: No acute abnormality or change. SL: [id number] 07/22/2017 [facility] Chest Pulmonary Embolism CTA Clinical Indication: sob, hx of cancer; TECHNIQUE: CTA of the pulmonary arteries was performed with 100 ml Omnipaque 350 intravenous contrast. Helical imaging performed apices to the lung bases. Multiplanar and 3-D MIP angiographic reconstructions are reviewed. CT Radiation Dose DLP: 510.37 mGy-cm COMPARISON: Chest x-ray from earlier the same day, PET/CT 06/14/2017, CT chest 01/07/2016. FINDINGS: LOWER NECK AND SOFT TISSUES: No enlarged lymph node is seen. MEDIASTINUM: No pulmonary embolus is visualized. Normal size of the heart is noted. No pericardial effusion is identified. The thoracic aorta is normal in caliber without intimal flap. No mediastinal, hilar, or axillary lymphadenopathy is seen. PULMONARY PARENCHYMA: No focal consolidation or pleural effusion is seen. No pulmonary nodule or mass is apparent. No pneumothorax is identified. UPPER ABDOMEN: Mild intrahepatic biliary ductal prominence is noted, status post cholecystectomy. 1.4 cm cyst of the right hepatic lobe is identified. Remaining visualized upper abdominal structures are unremarkable. MUSCULOSKELETAL: Vertebroplasty cement is seen from T6 through T10. Scattered sclerotic densities in the C7 and T1 vertebral bodies are unchanged. No destructive lytic or blastic osseous lesion is noted. IMPRESSION: No pulmonary embolism. No evidence for metastatic disease in chest. SL: [id number] 07/20/2017 [facility] Chest 1view DX Study: Chest 1v iew DX Clinical Indication: - SOB Comparison: Chest x-ray from 07/19/2017 FINDINGS: Left-sided Port-A-Cath is stable. Cardiac silhouette is normal in size. Small left pleural effusion is seen. No pneumothorax is noted. Osseous structures are stable. IMPRESSION: Small left pleural effusion. SL: [id number]-PC 07/20/2017 [facility] Chest 2 views DX Study: Two-vi ew chest History: Cough Comments: The trachea is midline. The cardiomediastinal silhouette is normal in size. No pneumonia. Left subclavian Port-A-Cath tip is in SVC. No pleural effusions or pneumothorax. Kyphoplasty changes in multiple thoracic vertebra Impression: No acute cardiopulmonary disease. 07/19/2017 [facility] PET CT Breast CA restaging PET /CT SCAN: HISTORY: - C50.911 Malignant neoplasm of unspecified site of right female breast 71-year-old female with right breast carcinoma, restaging. Last chemotherapy was 2015. Currently on cancer drug daily. No radiation therapy. 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 Comparison: PET/CT of 11/23/2016. TECHNIQUE: The patient was injected intravenously with 15.28 mCi of FDG for imaging in the left arm. The study was carried out from the skull base to the thighs. CT was utilized for attenuation correction and anatomic correlation. DLP: 249.13 mGy-cm. BLOOD GLUCOSE: 78 mg/dl FINDINGS: 1. Atrophic thyroid gland is present. No definite hypermetabolic lesion is present within the neck. 2. No definite hypermetabolic activity i s present within the breast tissue or axilla. No definite hypermetabolic lesion is present within the chest. 3. Postoperative cholecystectomy. Stable right hepatic cyst is present. Abundance of stool within the colon. 4. Postoperative multilevel thoracic yady tebroplasty changes are present. Mild grade 1 anterolisthesis of L4 on L5. Normal activity is present within the collecting system and bladder. IMPRESSION: 1. Stable PET/CT without convincing evid ence of residual/recurrent or distant metastatic disease detected. 2. Postoperative cholecystectomy. SL: [id number] 06/14/2017 [facility] Spine Thoracic w/wo contrast MRI Patient Name: CECILY WALTER : 1945; Age: 71 years y/o Female MR: [id number] Study: Spine Thoracic w/wo contrast MRI dated 04/05/2017. Clinical Indication: C50.919 Malignant neoplasm of unspecified site of unspecified female breast Comparison: PET/CT dated 11/23/2016. Sagittal T1, sagittal T1 fat-sat postcontrast, sagittal FSE, sagittal FSE fat- sat, axial FSE and axial T1 fat-sat postcontrast images performed of the thoracic spine. Methacrylate is noted within T6, T7, T8, T9 and T10 vertebral bodies. There is marked compression deformities of T8 and T9 with moderate compression deformities of T7 and T10. Slight anterolisthesis of T7 on T8 and T8 on T9. Slight retropulsion to the superior posterior aspect of T9. No abnormal signal identified within the thoracic spinal cord. Mild disc bulge at T2-T3. No focal herniated nucleus pulposus, neural foraminal narrowing or spinal canal stenosis throughout the thoracic spine. Mild disc bulge at T12-L1. No other bony marrow abnormality identified about the thoracic spine. No abnormal areas of enhancement identified in the thoracic vertebral bony marrow, thoracic spinal cord or thoracic spinal canal. There appears to be a small cyst to the right lobe of the liver not well evaluated by this study. CONCLUSIONS: 1. Compression deformities of the thorac ic vertebral bodies as above with methacrylate within T6, T7, T8, T9 and T10 vertebral bodies. 2. Mild disc bulge T2-T3 and T12-L1. 3. Slight anterolisthesis of T7 on T8 an d T8 on T9. 4. Slight retropulsion of the superior p osterior aspect of T9. SL: CSODERSTROM-RICCARDO 04/05/2017 [facility] Spine lumbar w/wo contrast MRI Patient Name: CECILY WALTER : 1945; Age: 71 years y/o Female MR: [id number] Study: Spine lumbar w/wo contrast MRI 04/05/2017 1:06 PM CDT Clinical Indication: M54.5 Low back pain Comparison: None TECHNIQUE: Multiplanar T1, FSE, FSE fat-sat and T1 fat-sat postcontrast MRI of the lumbar spine is performed on the 1.5 Mandie magnet. FINDINGS: ALIGNMENT AND GENERAL ASSESSMENT: There are 6 lumbar type vertebral bodies when compared to the thoracic spine MRI. The conus medullaris terminates in a normal location and no abnormal signal identified in the lower spinal cord. Mild to moderate old compression deformity is seen to L2. Mild old compression deformity is seen to L6. Diffuse disc desiccation is seen throughout the lumbar spine. There is slight posterolisthesis of L2 on L3 with 3 mm anterolisthesis of L5 on L6. There is dilatation of the common bile duct without obstructing lesion identified. This is not well evaluated by this study. DISC SPACES: T12-L1: Mild diffuse disc bulge. No focal herniated nucleus pulposus, neural foraminal narrowing or spinal canal stenosis. L1-L2: Mild bilateral facet hypertrophy. Mild diffuse disc bulge. No focal herniated nucleus pulposus, neural foraminal narrowing or spinal canal stenosis. L2-L3: Bilateral facet hypertrophy. Mild disc bulge. No focal herniated nucleus pulposus, neural foraminal narrowing or spinal canal stenosis. L3-L4: Bilateral facet hypertrophy. Mild disc bulge. No focal herniated nucleus pulposus, neural foraminal narrowing or spinal canal stenosis. L4-L5: Bilateral facet and ligamentum flavum hypertrophy. Mild disc bulge. No focal herniated nucleus pulposus, neural foraminal narrowing or spinal canal stenosis. L5-L6: Diffuse disc bulge. Bilateral facet and ligamentum flavum hypertrophy. Moderate left L5-L6 neural foraminal narrowing and mild to moderate right L5-L6 neural foraminal narrowing. Moderate to severe concentric spinal canal stenosis. L6-S1: No focal herniated nucleus pulposus, no neural foraminal narrowing and no spinal canal stenosis. IMPRESSION: 1. 6 lumbar type vertebral bodies. 2. Old compression deformities of L2 and L6. 3. Slight posterolisthesis of L2 on L3 a nd 3 mm anterolisthesis of L5 on L6. 4. Multilevel disc bulging and multileve l facet hypertrophy as above. 5. Bilateral L5-L6 neural foraminal narr owing as above. 6. Moderate to severe concentric spinal canal stenosis L5-L6 as above. SL: CSODERSTROM-RICCARDO 04/05/2017 [facility] PET CT Breast CA restaging Pat ient Name: CECILY WALTER : 1945; Age: 71 years y/o Female MR: [id number] Study: PET CT Breast CA restaging 11/23/2016 11:25 AM CDT Ordering Physician: Juanjose Meyer MD Clinical Indication: C50.911 Malignant neoplasm of unspecified site of right female breast; DLP = 232.86 mGy*cm , CTDIvol = 3.12 mGy Comparison: 08/17/2016 PET/CT PET CT TECHNIQUE: Positron emission tomography imaging is performed after administration of 13.25 mCi of F-18 labeled FDG, from the skull base to the mid thigh region. PET images were reviewed in the axial, coronal and sagittal orthogonal projections. Non- contrast enhanced CT imaging was for performed for attenuation correction, localization and limited diagnostic purposes. Serum glucose: 75 mg/dL. FINDINGS: HEAD/NECK: No abnormal areas of tracer activity identified about the visualized portions of the head or neck. CHEST: Small focal area of consolidation is seen in the anterolateral inferior left lower lobe not seen on prior study. This does not show abnormal increased uptake and likely represents area of atelectasis. No abnormal areas of tracer activity identified about the chest. Calcification along the great vessels, aortic calcification and coronary artery calcification identified. ABDOMEN AND PELVIS: No abnormal areas of tracer activity identified about the abdomen, pelvis or proximal thigh region bilaterally. Probable cyst in the inferior right lobe of the liver similar to prior study likely benign. Patient is status post cholecystectomy. Bilateral iliac and bilateral femoral artery calcification. Patient is status post hysterectomy. BONES: No abnormal areas of tracer activity identified about the bones. Again identified are multiple vertebroplasties in the thoracic region. Probable healed fracture of the posterior right rib similar to prior study. IMPRESSION: 1. Small area of focal consolidation in the anterolateral inferior left lower lobe not seen on prior study likely atelectasis. 2. Otherwise unremarkable PET/CT study. SL: [id number] 11/23/2016 [facility] Abdomen/Pelvis w IV contrast CT Study: Abdomen/Pelvis w IV contrast CT Clinical Indication: Abdominal pain, acute; CONSTIPATION X3 DAYS Comparison: None TECHNIQUE: Multiple axial CT images of the abdomen and pelvis were acquired following the administration of intravenous contrast. Sagittal and coronal reformatted images were performed. CT Radiation Dose DLP 692.74 mGy-cm FINDINGS: The visualized lung bases are clear bilaterally. Septated, hypodense 1.9 cm cyst in the right hepatic lobe is seen. Patient is status post cholecystectomy. There is diffuse intrahepatic and extra hepatic biliary duct dilatation. Pancreas, spleen, adrenal glands, and kidneys are unremarkable. Urinary bladder is well-distended. Patient is status post hysterectomy. The visualized hollow viscera and appendix are normal in appearance. No intraperitoneal free air, free fluid, or pathologic adenopathy is seen. Extensive arterial calcifications are seen. Bones are demineralized. Degenerative changes of the lower lumbar spine are seen. Chronic mild osteoporotic compression fractures of L1 and L5 are noted. IMPRESSION: 1. No acute intra-abdominal/pelvic abnor mality. SL: GARTH 10/14/2016 [facility] Abdomen 2 views DX Abdomen 2 v iews DX Female Age: 71 years Clinical Indication: Abdominal pain, acute; Comparison: 01/15/2015 FINDINGS: The supine and upright views of the abdomen shows a non-obstructive bowel gas pattern. There is no abnormal dilatation of bowel loops. No significant air fluid levels. There is no pneumoperitoneaum. Surgical clips in the right lower quadrant are evidence of previous cholecystectomy.. Since the previous examination of 01/15/2015 multiple midthoracic vertebral plasties have been performed. There is a generally decreased density and bone. The L1 vertebral body shows partial compression which is probably old and appears similar to prior study of 01/15/2015. IMPRESSION: 1. Vertebral compression deformities as noted. Intrathoracic lesions are new since previous exam and show evidence of therapeutic methacrylate injection. 2. Previous cholecystectomy. 3. No acute abdominal abnormality identi fied. SL: [id number] 10/14/2016 [facility] Digital Mammo DX Alex MA - DIGI ABEBE MAMMO DX ALEX MA BILATERAL DIGITAL DIAGNOSTIC MAMMOGRAM WITH CAD: 08/28/2016 CLINICAL: C50.919 Malignant Neoplasm Of Unspecified Site Of Unspecified Female Breast. Current study was evaluated with a Computer Aided Detection (CAD) system. Comparison is made to exams dated: 08/05/2015 mammogram, 10/03/2014 mammogram - [facility], 11/15/2013 mammogram, 10/10/2012 mammogram and 08/21/2010 mammogram - [facility]. The tissue of both breasts is extremely dense. This may lower the sensitivity of mammography. There are benign calcifications in both breasts. There also is a biopsy clip in the right breast. There are mole markers on the left breast. No significant masses, calcifications, or other findings are seen in either breast. There has been no significant interval change. IMPRESSION: BENIGN There is no mammographic evidence of malignancy. A 1 year screening mammogram is recommended. Horace Yang M.D. wp/:08/28/2016 14:22:06 Risk Management Manager: Sondra JIMENEZ(R)(M), [facility] This exam was dictated and interpreted by [id number] for [facility], 12. letter sent: Bilateral Benign Mammogram BI-RADS: 2 Benign 08/28/2016 [facility] Digital Mammo DX Alex MA AMENDM ENT: 10/17/2018 Alfonso Escalona M.D. Amendment to reflect birads 6. No suspicious imaging findings. Amended BI-RADS: 6 Known biopsy proven malignancy - DIGITAL MAMMO DX ALEX MA BILATERAL DIGITAL DIAGNOSTIC MAMMOGRAM WITH CAD: 08/28/2016 CLINICAL: C50.919 Malignant Neoplasm Of Unspecified Site Of Unspecified Female Breast. Current study was evaluated with a Computer Aided Detection (CAD) system. Comparison is made to exams dated: 08/05/2015 mammogram, 10/03/2014 mammogram - [facility], 11/15/2013 mammogram, 10/10/2012 mammogram and 08/21/2010 mammogram - [facility]. The tissue of both breasts is extremely dense. This may lower the sensitivity of mammography. There are benign calcifications in both breasts. There also is a biopsy clip in the right breast. There are mole markers on the left breast. No significant masses, calcifications, or other findings are seen in either breast. There has been no significant interval change. IMPRESSION: BENIGN There is no mammographic evidence of malignancy. A 1 year screening mammogram is recommended. Horace Yang M.D. wp/:08/28/2016 14:22:06 Risk Management Manager: Sondra DELGADILLO)(M), [facility] This exam was dictated and interpreted by [id number] for [facility], 12. letter sent: Bilateral Benign Mammogram BI-RADS: 2 Benign 08/28/2016 [facility] PET CT Breast CA restaging PET /CT SCAN: HISTORY: C50.919 Malignant neoplasm of unspecified site of unspecified female breast 71-year-old female with right breast carcinoma, restaging. Last chemotherapy was 08/10/2016. No radiation therapy. 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 Comparison: PET/CT of 01/27/2016. MRI thoracic spine of 02/03/2016. TECHNIQUE: The patient was injected intravenously with 13.2 mCi of FDG for imaging in the right antecubital fossa. The study was carried out from the skull base to the thighs. CT was utilized for attenuation correction and anatomic correlation. DLP: 244.86 mGy-cm. FINDINGS: 1. Left portacatheter is present. No def inite hypermetabolic right breast lesion or axillary adenopathy detected. No definite hypermetabolic lesion is present within the chest. Mild perihilar bronchiectasis is present. 2. No definite hypermetabolic lesion is present within the abdomen or pelvis. A 1.9 cm right hepatic cyst is present. Postoperative cholecystectomy. 3. Abundance of stool within the colon. 4. Interval multilevel thoracic vertebro plasty changes are present. 5. Severe degenerative arthropathy of th e right shoulder. Normal activity is present within the collecting system and bladder. IMPRESSION: 1. Overall, stable PET/CT without convin cing evidence of residual/recurrent disease. 2. Interval multilevel thoracic vertebro plasty changes are present. 3. Postoperative cholecystectomy. SL: [id number] 08/17/2016 [facility] Shoulder arthrogram DX Study: RIGHT SHOULDER ARTHROGRAM AND THERAPEUTIC INJECTION Clinical Indication: Right shoulder osteoarthritis, pain Informed consent was obtained. The right shoulder region was prepped and draped in sterile fashion. Utilizing fluoroscopic guidance and 1% lidocaine local anesthesia, a 20-gauge spinal needle was introduced into the joint space. Intra-articular position was confirmed with injection of 2 mL of Omnipaque, which flowed into the joint space. Digital image was obtained. 80 mg of methylprednisolone and 5 mL of 0.5% bupivacaine was injected into the joint, as requested. There were no complications. Fluoroscopy time: 0.8 minutes IMPRESSION: Successful right shoulder injection SL: [id number] 08/13/2016 [facility] Chest 2 views DX Study: Chest 2 views DX Clinical Indication: R07.9 Chest pain, unspecified Comparison: Chest x-ray from 01/24/2015. CT chest from 01/07/2016. MRI thoracic spine from 02/03/2016. FINDINGS: Left sided Port-A-Cath is stable. Cardiac silhouette is normal in size. Emphysematous changes of the lungs are again seen. No focal consolidation or congestion is noted. There is no pleural effusion or pneumothorax. There is a subacute-appearing moderate-severe osteoporotic compression fracture of the T8 vertebral body with 5 mm osseous retropulsion. This is stable since prior MRI of the thoracic spine from 02/03/2016. IMPRESSION: 1. No acute cardiopulmonary disease. 2. Moderate-severe osteoporotic compress ion fracture of the T8 vertebral body which is stable since prior MRI of the thoracic spine from 02/03/2016. SL: [id number] 02/17/2016 [facility] Spine Thoracic w/wo contrast MRI EXAM: MRI THORACIC SPINE WITHOUT AND WITH CONTRAST DATE: 02/03/2016 7:27 AM CDT INDICATION: M54.89 Other dorsalgia. Back pain. COMPARISON: PET/CT of 01/27/2016. CT chest of 01/07/2016 TECHNIQUE: Multiplanar, multisequence noncontrast and contrast enhanced MR imaging of the thoracic spine. IV contrast: 11.0 mL of Omniscan FINDINGS: Abnormal signal alteration and enhancement are present within the moderately compressed T8 vertebral body with extension into the pedicles and mild retropulsion of the predominant posterior superior cortex resulting in mild to moderate anterior cord flattening without cord edema. Only very little residual preservation of T1 marrow signal intensity is present. Mild abnormal signal alteration and enhancement with vertebral body height loss are present along the T7 endplate. No abnormal fluid signal intensity is present within the disc space. No significant paraspinous or epidural enhancing soft tissue mass or fluid detected. Mild chronic compression fracture of the L2 vertebral body. IMPRESSION: 1. Abnormal signal alteration and enhanc ement within the moderately compressed T8 vertebral body with mild retropulsion of the predominant posterior superior cortex resulting in mild to moderate anterior cord flattening without cord edema. Mild abnormal signal alteration and enhancement with vertebral body height loss are present along the T7 endplate. Differential includes recent acute to subacute posttraumatic or osteoporotic compression fracture. Please correlate for any recent history of trauma. Less likely is infection given the lack of disc involvement. This remains indeterminate for pathologic compression fracture given history of malignancy. Either biopsy and/or follow-up dedicated MRI thoracic spine in 6-8 weeks recommended to reevaluate. SL: [id number] 02/03/2016 [facility] PET CT Breast CA restaging PET /CT SCAN: HISTORY: C50.919 Malignant neoplasm of unspecified site of unspecified female breast 70-year-old female with right breast carcinoma, restaging. Last chemotherapy therapy was 01/21/2016. No radiation therapy. Postoperative hysterectomy of unknown date. Comparison: PET/CT of 08/05/2015. CT chest of 01/07/2016. TECHNIQUE: The patient was injected intravenously with 14.3 mCi of FDG for imaging in the left hand the study was carried out from the skull base to the thighs. CT was utilized for attenuation correction and anatomic correlation. DLP: 315.10 mGy-cm. FINDINGS: 1. Left portacatheter is unchanged. No d efinite hypermetabolic activity is present within the bilateral breast tissues, specifically, stable right breast and axilla without hypermetabolic activity. Mild bibasilar atelectasis. 2. Nonspecific background liver activity is present. Stable hepatic activity without definite hypermetabolic lesion detected. Stable small anterior right hepatic cyst is present. 3. Postoperative cholecystectomy. Postop erative hysterectomy. 4. Moderate T8 compression fracture is p resent with diffuse hypermetabolic activity with maximal SUV of 3.8 and associated mild anterior paraspinous fullness high suspicious for pathologic compression fracture. 5. Severe degenerative arthropathy of th e right shoulder. Normal activity is present within the collecting system and bladder. IMPRESSION: 1. Moderate T8 compression fracture is p resent with diffuse hypermetabolic activity with maximal SUV of 3.8 and associated mild anterior paraspinous fullness high suspicious for pathologic compression fracture. Please correlate for recent history of trauma. Dedicated MRI thoracic spine without and with contrast recommended for further evaluation. 2. Otherwise, stable PET CT as above. SL: [id number] 01/27/2016 [facility] Chest w contrast CT Study: [facility] w contrast CT Age: 70 years y/o Female Clinical Indication: C50.919 Malignant neoplasm of unspecified site of unspecified female breast; Comparison: 01/24/2015 TECHNIQUE: Sequential trans-axial images were obtained thru the chest and upper abdomen after administration of iodinated contrast. Coronal and sagittal reconstructions were obtained. 100 cc of nonionic contrast material was used for the exam. Dose: DLP = 279 mGy-cm FINDINGS: The patient has a left subclavian Port-A-Cath in position. LUNG PARENCHYMA AND PLEURA: There are no lung nodules. There is no significant interstitial lung disease. There are no pleural effusions. There is no pneumothorax. AIRWAY: The central airway is normal. . MEDIASTINUM: No significant mediastinal lymphadenopathy. HEART: There is cardiomegaly which is slightly increased when compared to previous exam. The cardiac chambers are otherwise unremarkable. There is no pericardial effusion. VASCULAR STRUCTURES: The pulmonary arteries and great vessels are unremarkable. The thoracic aorta is within normal limits.. The superior vena cava is unremarkable. OSSEOUS STRUCTURES: There are no significant osseous abnormalities seen. VISUALIZED UPPER ABDOMEN: The visualized upper abdomen is remarkable for a mildly heterogeneous appearance of the liver. Intrahepatic bile ducts appear distended. A surgical clip in the region of the gallbladder fossa suggest previous cholecystectomy. When compared to previous examination the bile duct enlargement appears slightly more prominent. The lower common duct region and pancreatic head region are not evaluated on this study. IMPRESSION: 1. No evidence of pulmonary embolic dise ase. 2. Cardiomegaly. 3. Mild central bile duct dilatation inc reased slightly from previous examination of 01/24/2015. Correlate with laboratory values. Possible stricture or other common duct obstruction not completely visualized on this exam. SL: [id number] 01/07/2016 [facility] Shoulder arthrogram DX Study: FLUOROSCOPIC-GUIDED RIGHT SHOULDER ARTHROGRAM AND THERAPEUTIC INJECTION Clinical Indication: Chronic right shoulder pain, chronic rotator cuff tear; SHOULDER STEROID INJECTION Comparison: None PROCEDURE: Informed consent was obtained. Digital right shoulder anterior image demonstrates superior displacement of the humeral head with respect to the glenoid. Extensive degenerative changes involve the glenohumeral articulation. Under sterile conditions, utilizing fluoroscopic guidance and 1% lidocaine local anesthesia, a 20-gauge spinal needle was introduced into the joint, confirmed with contrast injection. Depo-Medrol 40 mg and bupivacaine 0.5% 3 cc were injected into the joint as requested. There were no complications. 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 Extremely dense glandular breast tissue is noted. An oval circumscribed hypoechoic 0.6 x 0.3 x 0.5 cm nodule at 2:00 appears stable. This represents either a complicated cyst or fibroadenoma and is benign. No other breast lesion is evident. The axilla is not remarkable. IMPRESSION: Stable benign 6 mm nodule at 2:00. Dense glandular breast. Routine follow-up mammography is recommended. BI-RADS: 2, benign SL: [id number] 11/07/2015 [facility] PET CT Breast CA restaging PET /CT SCAN: HISTORY: 69-year-old female with right breast carcinoma, restaging. Last chemotherapy was 07/30/2015. No radiation therapy. COMPARISON: PET/CT of 04/15/2015 and 10/22/2014. TECHNIQUE: The patient was injected intravenously with 14.0 mCi of FDG for imaging in the left arm. The study was carried out from the skull base to the thighs. CT was utilized for attenuation correction and anatomic correlation. DLP: 299.81 mGy-cm. FINDINGS: 1. Left portacatheter is present. No def inite hypermetabolic activity is present within the bilateral breast tissues, specifically, stable right breast and axilla without hypermetabolic activity. 2. Nonspecific background liver activity is present. Stable hepatic activity without definite hypermetabolic lesion detected. Stable small anterior right hepatic cyst is present. 3. Postoperative cholecystectomy. Postop erative hysterectomy. 4. Scattered brown fat activity is noted . Normal activity is present within the collecting system and bladder. IMPRESSION: 1. Stable PET/CT without convincing evid ence of residual/recurrent disease. SL: 12 08/05/2015 [facility] Breast Complete Alex US - BREAS T COMPLETE ALEX US ULTRASOUND OF BOTH BREASTS AND BOTH AXILLA: 08/05/2015 CLINICAL: C50.919 Malignant Neoplasm Of Unspecified Site Of Unspecified Female Breast. Comparison is made to exams dated: 10/09/2014 ultrasound biopsy, 10/03/2014 ultrasound, 10/03/2014 ultrasound, 08/05/2015 mammogram and 10/03/2014 mammogram - [facility]. Color flow and real-time ultrasound of both breasts and both axilla were performed. Fox scale images of the real-time examination were reviewed. There is a new 0.5 cm x 0.3 cm x 0.6 cm wider than tall oval lesion with a smooth and circumscribed margin in the left breast at 2 o'clock middle depth 2 cm from the nipple and 1.2 cm from the skin with the long axis parallel to the skin. This oval lesion is hypoechoic with a well-defined boundary, internal echoes and posterior acoustic enhancement. This was not seen on the prior mammogram and ultrasound. A PET/CT exam performed this morning shows now activity in either breast of any significance. No abnormalities were seen sonographically in the right breast or either axilla. Extensive hypoechoic masses seen on the right previously have resolved. All four quadrants and retroareolar regions examined. IMPRESSION: PROBABLY BENIGN - FOLLOW-UP RECOMMENDED The new 0.5 cm x 0.3 cm x 0.6 cm wider than tall oval lesion in the left breast most likely is a complex cyst and is PET negative and therefore probably benign. A follow-up in 3 to 4 months is recommended. Juanjo Juárez sns/:08/05/2015 15:57:57 Risk Management Manager: Michael Contreras, [facility] This exam was dictated and interpreted by [id number] for [facility], 12. letter sent: Followup Ultrasound BI-RADS: 3 Probably benign 08/05/2015 [facility] Digital Mammo DX Alex MA - DIGI ABEBE MAMMO DX ALEX MA BILATERAL DIGITAL DIAGNOSTIC MAMMOGRAM WITH CAD: 08/05/2015 CLINICAL: C50.919 Malignant Neoplasm Of Unspecified Site Of Unspecified Female Breast, Monitor Response To Therapy. Current study was evaluated with a Computer Aided Detection (CAD) system. Comparison is made to exams dated: 10/03/2014 mammogram - [facility], 11/15/2013 mammogram, 10/10/2012 mammogram, 08/21/2010 mammogram, 07/05/2009 mammogram - [facility] and 08/05/2015 ultrasound - [facility]. Current study contains 6 films. The tissue of both breasts is extremely dense. This may lower the sensitivity of mammography. There are benign calcifications in both breasts. There also is a biopsy clip in the right breast. There are mole markers on the left breast. Since prior mammogram of 10/03/2014 the diffuse skin thickening/edema on the right has resolved almost entirely. Density in the medial aspect of the right breast is generally decreased, though the breasts are still very dense due to baseline fibroglandular tissue. Interestingly, a cluster of calcifications in the medial aspect of the right breast has decreased in number and is now surrounded by a lucent halo. No significant masses, calcifications, or other findings are seen in either breast. IMPRESSION: BENIGN There is no mammographic evidence of malignancy. A 1 year screening mammogram is recommended. Juanjo Juárez sns/:08/05/2015 15:50:28 Risk Management Manager: Renetta Lopez RT (Kartik)(Radha), [facility] This exam was dictated and interpreted by [id number] for [facility], SL 12. letter sent: Bilateral Benign Mammogram BI-RADS: 2 Benign 08/05/2015 [facility] PET CT Breast CA restaging PET /CT SCAN: HISTORY: 69-year-old female with right breast carcinoma, restaging. The patient is currently on chemotherapy. No radiation therapy. COMPARISON: PET/CT of 10/22/2014. TECHNIQUE: The patient was injected intravenously with 15.12 mCi of FDG for imaging in the left hand. The study was carried out from the skull base to the thighs. CT was utilized for attenuation correction and anatomic correlation. FINDINGS: 1. Left portacatheter is present. Previo us hypermetabolic lesions within the right breast are longer visualized. Previous hypermetabolic right axillary and subpectoral lesions are no longer visualized. Mild lingular and anterior left lower lobe atelectasis. Nonspecific calcifications are present within the right perihilar region. 2. Previous hypermetabolic left rib lesi on is no longer visualized with only residual sclerosis. Previous hypermetabolic left hepatic lesion is no longer visualized. Stable right hepatic cyst is present. Postoperative cholecystectomy. 3. Previous left L1 sclerotic lesion hyp ermetabolic activity has resolved. 4. Nonspecific diffuse activity is prese nt within the posterior right muscular compartment involving the hamstring without definite mass may represent muscular strain. 5. Postoperative hysterectomy. Normal activity is present within the collecting system and bladder. IMPRESSION: 1. Overall, significant response to brendan tment with resolution of the right breast, subpectoral and axillary lesions as well as metastatic hepatic and bony lesions as detailed above. No definite new lesion detected. 2. Nonspecific diffuse activity is prese nt within the posterior right muscular compartment involving the hamstring without definite mass may represent muscular strain. Please correlate clinically for recent injury/trauma. Dedicated MRI of the right femur can be perform for further evaluation if indicated. SL: 12 04/15/2015 [facility] Chest w contrast CT EXAM: CTA Pulmonary arteries and routine CT Chest. HISTORY: Chest pain/ See Clinic Indication. Evaluate for pulmonary embolism. TECHNIQUE: Thin collimation axial images of the pulmonary arteries and routine CT chest with IV contrast. Coronal and sagittal reformatted images were utilized. COMPARISON: Chest radiography dated 01/24/[address] thorax dated 12/31/2014 FINDINGS: No pulmonary embolism. Moderate aortic and coronary calcification. No aortic dissection. Heart size normal. No pericardial effusion. No mediastinal mass, adenopathy, or fluid collection. Mild scarring and bronchiectasis in the right middle lobe is again noted. Lungs are otherwise clear. No pleural effusion. No pneumothorax. The visualized portion of the upper abdominal contents reveals cholecystectomy and small liver cysts. No acute osseous abnormality. IMPRESSION: No pulmonary embolism. SL: 01/24/2015 [facility] Chest 1view DX NAME: CECILY WALTER : 1945 SEX: F Ordering Physician: Cheyanne Worthy Chest 1view : January 24, 2015 05:12:00 PM. CLINICAL INDICATION: Respiratory distress. Comparison Examination: 01/15/2015. FINDINGS: Degenerative changes seen about the right glenohumeral joint. Stable position of left Port-A-Cath. Cardiac and mediastinal structures are stable. Slight patchy consolidation lateral left lung base. No other focal infiltrate identified within the lungs. Prominence of interstitium about the lungs similar to prior study and may represent a mild nonspecific interstitial pneumonitis. No pneumothorax. SL: 01/24/2015 [facility] Abdomen acute series w chest 1 view DX ABDOMINAL SERIES (with frontal chest radiograph) HISTORY: abdominal pain, CT images through the chest, abdomen, and pelvis and a report from a PET CT of 10/22/2014 were reviewed. TECHNIQUE: The abdomen was evaluated in supine and upright projections. A frontal examination of the chest was also obtained. FINDINGS: The soft tissue outlines and bowel gas pattern are within normal limits. There is no evidence of obstruction, ileus, or free intraperitoneal gas. There are no unusual intra-abdominal calcifications. Vascular calcifications are noted throughout the aorta and iliac arteries. There are surgical clips in the right upper quadrant consistent with a prior cholecystectomy. There are severe degenerative changes involving the right shoulder and moderate degenerative change involving the left shoulder. The regional skeleton is otherwise unremarkable. It is noted the recent PET/CT scan of 10/22/2014 described an abnormality in the anterior aspect of the L1 vertebral body. Please refer to that report. A frontal examination of the chest was obtained. The lungs are clear. There are mild chronic nonspecific interstitial changes. The heart and pulmonary vasculature are within normal limits. There is a left subclavian single lumen Port-A-Cath which terminates in the upper superior vena cava. CONCLUSION: 1. Benign appearance of the abdomen. 2. No evidence of an active or acute pro cess within the chest. 3. Status post cholecystectomy. 4. Atherosclerosis. 5. Degenerative change involving the josie ulders, greater on the right. 6. Please refer to the recent PET-CT rep ort of 10/22/2014 regarding findings involving L1. 7. There is a left subclavian single lum en Port-A-Cath which terminates in the upper superior vena cava. Coding: Abdomen 3 views CPT code: 35803 SL: 12 Dale Turpin M.D. 01/15/2015 [facility] 2 views DX CHEST, PA AND LATERAL. INDICATION: Pneumonia. COMPARISON: Chest 12/30/2014. Cardiac size is normal. Left subclavian Port-A-Cath terminates within the upper superior vena cava. The lungs are emphysematous with mild interstitial scarring. No pneumonia, vascular congestion or pleural effusion is seen. Degenerative changes involve both shoulders and there is mild thoracic dextroscoliosis and spondylosis. IMPRESSION: No acute abnormality. Emphysema with interstitial scarring. SL: 12 01/04/2015 [facility] Chest wo contrast CT EXAM: CT chest without contrast. CLINICAL INFORMATION: Shortness of Breath/ ??pneumonia, recurrent COMPARISON: CT chest 10/09/2009. Chest radiograph of this date. TECHNIQUE: Axial images obtained of the thorax without IV contrast. The lack of IV contrast lowers the sensitivity for diagnostic evaluation. Breathing motion artifact degrades image quality. FINDINGS: Small nonspecific bilaterally nodes are present. Left portacatheter is present. Stable mild cardiomegaly. Extensive coronary atherosclerotic disease. Small nonspecific mediastinal nodes are present. Patchy bilateral lower lobe and lingular infiltrates are present. No significant pleural effusion or pneumothorax. Postoperative cholecystectomy. IMPRESSION: 1. Limited study as above. Patchy bilate ral lower lobe and lingular infiltrates. 2. Postoperative cholecystectomy. SL: 12 12/31/2014 [facility] Chest 1view DX PROCEDURE: Randi st 1view REASON FOR EXAM: See Clinic Indication CLINICAL INDICATION: Chest pain COMPARISON: 12/23/2014. FINDINGS: Stable mildly enlarged cardiac silhouette. Tortuous thoracic aorta. Left portacatheter is unchanged with its tip in the upper SVC. Mild left basilar atelectasis or infiltrate. The right lung is unchanged. The lungs are hyperexpanded and emphysematous. Severe DJD of the right shoulder. SL: 12 12/30/2014 [facility] Chest 2 views DX EXAMINATION: Chest 2 views CLINICAL HISTORY: Pneumonia The lungs remain hyperinflated with interval development of small bilateral pleural effusions with adjacent opacities representing atelectasis or pneumonia since 12/21/2014. No pneumothorax. The heart size remains mildly enlarged. The left subclavian central venous catheter overlies the proximal SVC. SL:17 12/23/2014 [facility] Chest 1view DX EXAM: Portable chest x-ray. HISTORY: Fever. COMPARISON: 11/25/2014 at 1643 hours. TECHNIQUE: Portable frontal view of the chest. FINDINGS: COPD. No appreciable pneumonia, edema or significant pleural effusion. Mild cardiomegaly. Stable left subclavian Port-A-Cath. SL: 14 12/21/2014 [facility] Chest 1view DX Examination: Ch est x-ray, single view History: Coughing Comparison: 10/29/2014 Findings: Left-sided Port-A-Cath is stable. Cardiac silhouette is normal in size. Emphysematous changes of the lungs are seen. There is no pleural effusion or pneumothorax. 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 IMPRESSION: No acute cardiopulmonary disease. SL: 16 11/25/2014 [facility] Chest 1view DX EXAM: Portable chest x-ray. HISTORY: Line placement. COMPARISON: Radiograph 08/13/2014 at 1524 hours. TECHNIQUE: Portable frontal view of the chest. FINDINGS: New left-sided Port-A-Cath tip projects in the SVC; no pneumothorax is seen. COPD. No appreciable pneumonia, edema or pleural effusion. Heart size upper normal. SL: 12 10/29/2014 [facility] Breast biopsy uni US Guided MA - BREAST BIOPSY UNI US GUIDED MA/R MULTIPLE ULTRASOUND GUIDED BIOPSIES RIGHT BREAST WITH MARKING DEVICE INSERTED AND POST DIGITAL MAMMOGRAPHIC IMAGIN10/09/2014 CLINICAL: Rt Breast/Axillary Mass. An ultrasound guided biopsy using real-time ultrasound was performed for the 6 cm x 4.9 cm irregular shaped mass located in the right breast at 12 o'clock middle depth. This was described on the previous mammography report. The skin was prepped in the usual manner. Local anesthetic was administered to the access site. A skin evan was made in the breast. The abnormality was approached from the lateral aspect. A 14 gauge biopsy needle was placed adjacent to the abnormality under ultrasound guidance. Once the needle was documented to be in the correct location, three specimens were obtained using a BARD biopsy device. A ribbon clip was inserted into the biopsy cavity. A sterile dressing was applied to the access site. Post procedure digital mammographic imaging demonstrates the clip at the targeted area. The specimens were sent to the laboratory for pathological analysis. A second ultrasound guided biopsy using real-time ultrasound was performed for the 1.3 cm lymph node located in the right axilla. This was described on the previous ultrasound report. The skin was prepped in the usual manner. Local anesthetic was administered to the access site. A skin evan was made in the breast. The abnormality was approached from the lateral aspect. A 14 gauge biopsy needle was placed adjacent to the abnormality under ultrasound guidance. Once the needle was documented to be in the correct location, a specimen was obtained using an Achieve automated firing device. A sterile dressing was applied to the access site. The specimen was sent to the laboratory for pathological analysis. IMPRESSION: ULTRASOUND GUIDED BIOPSY MALIGNANT Ultrasound guided biopsy of the 6 cm x 4.9 cm mass in the right breast at 12 o'clock middle depth was successful with no apparent post procedure complications. Ultrasound guided biopsy of the 1.3 cm lymph node in the right axilla was successful with no apparent post procedure complications. Pathology indicates: '1. Right breast, core needle biopsy from 12 o'clock area: - INVASIVE PLEOMORPHIC LOBULAR CARCINOMA, NUCLEAR GRADE 3. 2. Right axillary lymph node, core needl e biopsy: - METASTATIC CARCINOMA.' Pathology results are malignant and concordant with imaging findings. A surgical evaluation, a surgical excision and a chemo oncology consultation are recommended. A message was left for Dr. Daphne Tello's office on 10/15/14. Luke Albarran M.D. ap/:10/15/2014 10:15:38 Risk Management Manager: Michael Contreras, [facility] This exam was dictated and interpreted by [id number] for [facility], 12. letter sent: Surgical Consult post Biopsy 10/09/2014 [facility] Breast US - BREAST US/R ULTRASOUND OF RIGHT BREAST: 10/03/2014 CLINICAL: Abn Mammo. Comparison is made to exam dated: 10/03/2014 mammogram - [facility]. Color flow and real-time ultrasound of the right breast (all four quadrants, retroareolar region, and axilla) were performed. Fox scale images of the real- time examination were reviewed. On examination, there is diffuse erythema and hardening of the right breast. There is a 6 cm x 4.9 cm irregular, hypoechoic mass in the right breast at 12 o'clock, 10 cm from the nipple. This correlates as palpated. There is diffuse skin thickening and edema within the right breast. There also is a 1.3 cm lymph node in the right axilla which has an abnormal thickened cortex with loss of fatty abdon. IMPRESSION: HIGHLY SUGGESTIVE OF MALIGNANCY - FOLLOW-UP RECOMMENDED The 6 cm x 4.9 cm irregular mass in the right breast at 12 o'clock middle depth is highly suggestive of malignancy. An ultrasound guided biopsy is recommended. The 1.3 cm lymph node in the right axilla is at a moderate suspicion for malignancy. An ultrasound guided biopsy is recommended. A phone call was made to the Dr. Tello on 10/03/14. Luke Albarran M.D. ap/:10/03/2014 16:14:37 Risk Management Manager: Michael Contreras, [facility] This exam was dictated and interpreted by [id number] for [facility], [place] 12. letter sent: Biopsy Ultrasound BI-RADS: 5 Highly suggestive of malignancy 10/03/2014 [facility] Breast US - BREAST US/L ULTRASOUND OF LEFT BREAST AND LEFT AXILLA: 10/03/2014 CLINICAL: Abn Mammo. Comparison is made to exam dated: 10/03/2014 mammogram - [facility]. Color flow and real-time ultrasound of the left breast and axilla were performed. Fox scale images of the real-time examination were reviewed. No abnormalities were seen sonographically in the left breast or the left axilla. Ultrasound was performed over all four quadrants, retroareolar region, and axilla. IMPRESSION: BENIGN There is no suspicious finding on left breast ultrasound. Annual mammogram is recommended on the left. Please refer to separate report of the right breast ultrasound. Luke Albarran M.D. ap/:10/03/2014 16:08:04 Risk Management Manager: Michael Contreras, [facility] This exam was dictated and interpreted by [id number] for [facility], 12. Ultrasound BI-RADS: 2 Benign 10/03/2014 [facility] Digital Mammo DX Alex MA - DIGI ABEBE MAMMO DX ALEX MA BILATERAL DIGITAL DIAGNOSTIC MAMMOGRAM WITH CAD WITH SPOT COMPRESSION: 10/03/2014 CLINICAL: Rt Breast Pain. Current study was evaluated with a Computer Aided Detection (CAD) system. Comparison is made to exams dated: 11/15/2013 mammogram, 10/10/2012 mammogram and 08/21/2010 mammogram - [facility]. The patient reports diffuse right breast erythema and hardening with a palpable lump superiorly for several weeks. She has taken a course of antibiotics and states that symptoms have improved slightly. The tissue of both breasts is heterogeneously dense, which could obscure detection of small masses. There is new extensive, diffuse skin and trabecular thickening throughout the right breast. No discrete mass is visualized. Ultrasound is recommended for further assessment. There are stable calcifications in both breasts. Initial views on the left demonstrated density inferiorly which effaces with spot compression images and has the appearance of superimposed fibroglandular tissue. There are no suspicious findings on the left. IMPRESSION: INCOMPLETE: NEEDS ADDITIONAL IMAGING EVALUATION SUMMARY: Ultrasound will be performed at this time; please see dedicated separate report. Bilateral ultrasound will be performed due to breast density. Luke Albarran M.D. ap/:10/03/2014 16:06:23 Risk Management Manager: Evelyn Wang RT (R)(M), [facility] This exam was dictated and interpreted by [id number] for [facility], 12. Mammogram BI-RADS: 0 Indeterminate 10/03/2014 [facility] Chest 2 views Examination: Randi st x-ray, 2 views History: Chest pain Comparison: 11/17/2013 Findings: The lungs are clear and without focal consolidation. The cardiomediastinal silhouette is within normal limits. No pleural effusion or pneumothorax is seen. Osseous structures are stable. IMPRESSION: No acute cardiopulmonary disease. SL: 12 08/13/2014 [facility] Bowel colon Barium enema Colon barium enema study. CLINICAL INFORMATION: incomplete colonoscopy. COMPARISON: [None]. Single contrast barium enema study was performed. Order Administrator image was obtained. FINDINGS: Initial grade recorder image demonstrates nonspecific nonobstructive bowel gas pattern. Osseous structures are intact. Postoperative cholecystectomy. Double contrast evaluation of the colon demonstrates multiple sigmoid diverticula. No persistent stricture or colonic mass is present. There is mild residual stool within the colon. About 1.08 minutes of fluoro time was utilized. IMPRESSION: 1. No definite persistent stricture or c olonic mass. 2. Diverticulosis without evidence of ac [place] diverticulitis. SL: 12 01/12/2014 [facility] Chest 2 views Examination: [facility] x-ray, 2 views History: COPD 496 Comparison: 02/24/2013 Findings: The lungs are clear and without focal consolidation. The cardiomediastinal silhouette is within normal limits. No pleural effusion or pneumothorax is seen. The osseous structures are without focal abnormality. IMPRESSION: No acute cardiopulmonary disease. SL: 12 11/17/2013 [facility] Digital Mammo Screen Alex MA w gretta - DIGITAL MAMMO SCREEN ALEX MA W GRETTA BILATERAL DIGITAL SCREENING MAMMOGRAM 3D/2D WITH CAD: 11/15/2013 CLINICAL: Screening Mammogram. 2D digital mammographic images and 3D di gital tomosynthesis images were obtained in the CC and MLO projections. Current study was evaluated with a Computer Aided Detection (CAD) system. Comparison is made to exams dated: 10/10/2012 mammogram, 08/21/2010 mammogram, 07/05/2009 mammogram - [facility] and 07/04/2008 mammogram - [facility]. The tissue of both breasts is heterogeneously dense, which could obscure detection of small masses. Technologist indicates the exam is limited secondary to the patient's underlying prior shoulder injury/pain. Optimal positioning was not allowed. Best images obtained were submitted. There are benign vascular calcifications in both breasts. There also are benign scattered calcifications in both breasts. No significant masses, calcifications, or other findings are seen in either breast. There has been no significant interval change. IMPRESSION: BENIGN There is no mammographic evidence of malignancy. A screening mammogram in one year is recommended. Shila jasmine/eran:11/17/2013 13:15:16 Risk Management Manager: Pamela JIMENEZ(R)(M), [facility] This exam was dictated and interpreted by [id number] for [facility] 15. letter sent: Normal exam Mammogram BI-RADS: 2 Benign 11/15/2013 [facility] [place] Chest 1view PROCEDURE: Chest 1view REASON FOR EXAM: See Clinic Indication CLINICAL INDICATION: Syncope COMPARISON: 09/04/2012. FINDINGS: Stable mild cardiomegaly. No definite failure. Tortuous thoracic aorta. The lungs are mildly hyperexpanded and emphysematous. Severe DJD of the shoulders. SL: 12 02/24/2013 [facility] Brain wo contrast CT NAME: CECILY GONZALEZ : 1945 SEX: F Ordering Physician: Sanket Licea Brain wo contrast CT : Feb 24, 2013 12:49:00 PM. CLINICAL INDICATION: Syncope. Comparison Examination: 04/22/2010. FINDINGS: The ventricles and sulci are enlarged for the patient's age but not out of proportion to each other. Findings are consistent with changes of mild cerebral atrophy. Ventricular size is stable compared to prior study. Patchy low density in the posterior centrum semiovale bilaterally consistent with small vessel changes. No evidence for subarachnoid, intraparenchymal or intraventricular hemorrhage. No extra-axial fluid collection, mass-effect or shift. No evidence for an acute infarction. Bone windows were obtained and no bony fracture was identified. CONCLUSIONS: 1. Cerebral atrophy. 2. Small vessel changes. 3. Otherwise negative head CT without co ntrast. SL: 02/24/2013 [facility] Consultation Notes No Data Provided for This Section Discharge Summaries No Data Provided for This Section History and Physicals No Data Provided for This Section Vital Signs Vital Sign Value Date Comments Source Systolic (mm Hg) 192 07/31/[facility] Diastolic (mm Hg) 83 07/31/2019 [facility] Heart Rate 88 07/31/2019 [facility] Systolic (mm Hg) 177 07/11/2019 [facility] Diastolic (mm Hg) 74 07/11/2019 [facility] Heart Rate 73 07/11/2019 [facility] Systolic (mm Hg) 153 06/26/2019 [facility] Diastolic (mm Hg) 83 06/26/2019 [facility] Heart Rate 94 06/26/2019 [facility] Height 154.94 cm 06/26/2019 [facility] Weight 46.818 06/26/2019 [facility] BMI Calculated 19.5 06/26/2019 [facility] Respitory Rate 29 06/10/2019 [facility] Systolic (mm Hg) 151 06/10/2019 [facility] Diastolic (mm Hg) 73 06/10/2019 [facility] Respitory Rate 17 06/10/2019 [facility] Systolic (mm Hg) 168 06/10/2019 [facility] Diastolic (mm Hg) 82 06/10/2019 [facility] Respitory Rate 9 06/10/2019 [facility] Systolic (mm Hg) 115 06/10/2019 [facility] Diastolic (mm Hg) 58 06/10/2019 [facility] Height 157.48 cm 06/06/2019 [facility] Weight 46.875 06/06/2019 [facility] BMI Calculated 18.9 06/06/2019 [facility] Heart Rate 64 06/06/2019 [facility] Systolic (mm Hg) 161 05/17/2019 [facility] Diastolic (mm Hg) 88 05/17/2019 [facility] Heart Rate 78 05/17/2019 [facility] Height 167.64 cm 05/17/2019 [facility] Weight 48.182 05/17/2019 [facility] BMI Calculated 17.14 05/17/2019 [facility] Temperature Oral (F) 98.4 F 09/05/2017 [facility] Systolic (mm Hg) 163 09/05/2017 [facility] Diastolic (mm Hg) 76 09/05/2017 [facility] Heart Rate 83 09/05/2017 [facility] Respitory Rate 16 09/05/2017 [facility] Weight 50 1 11/06/2016 [facility] BMI Calculated 20.16 09/05/2017 [facility] Height 157.48 cm 09/05/2017 [facility] Heart Rate 109 09/05/2017 [facility] Respitory Rate 16 09/05/2017 [facility] Systolic (mm Hg) 159 09/05/2017 [facility] Diastolic (mm Hg) 80 09/05/2017 [facility] Temperature Oral (F) 98.1 F 09/05/2017 [facility] Systolic (mm Hg) 165 07/23/2017 [facility] Diastolic (mm Hg) 82 07/23/2017 [facility] Temperature Oral (F) 98.2 F 07/23/2017 [facility] Heart Rate 84 07/23/2017 [facility] Heart Rate 63 07/23/2017 [facility] Temperature Oral (F) 97.7 F 07/23/2017 [facility] Systolic (mm Hg) 111 07/23/2017 [facility] Diastolic (mm Hg) 71 07/23/2017 [facility] Heart Rate 75 07/23/2017 [facility] Temperature Oral (F) 98.3 F 07/23/2017 [facility] Respitory Rate 18 07/23/2017 [facility] Systolic (mm Hg) 160 07/23/2017 [facility] Diastolic (mm Hg) 88 07/23/2017 [facility] Respitory Rate 18 07/23/2017 [facility] Respitory Rate 18 07/23/2017 [facility] Height 160.02 cm 07/20/2017 [facility] BMI Calculated 19.35 07/20/2017 [facility] Weight 49.545 07/20/2017 [facility] Systolic (mm Hg) 112 10/16/2016 [facility] Diastolic (mm Hg) 64 10/16/2016 [facility] Respitory Rate 18 10/16/2016 [facility] Heart Rate 74 10/16/2016 [facility] Temperature Oral (F) 99.1 F 10/16/2016 [facility] Heart Rate 73 10/16/2016 [facility] Systolic (mm Hg) 103 10/16/2016 [facility] Diastolic (mm Hg) 62 10/16/2016 [facility] Temperature Oral (F) 98.6 F 10/16/2016 [facility] Respitory Rate 18 10/16/2016 [facility] Respitory Rate 20 10/16/2016 [facility] Temperature Oral (F) 98.3 F 10/16/2016 [facility] Systolic (mm Hg) 111 10/16/2016 [facility] Diastolic (mm Hg) 70 10/16/2016 [facility] Heart Rate 74 10/16/2016 [facility] BMI Calculated 16.5 10/15/2016 [facility] Height 167.64 cm 10/15/2016 [facility] Weight 46.364 10/15/2016 [facility] Weight 47.273 10/14/2016 [facility] BMI Calculated 16.82 10/14/2016 [facility] Height 167.64 cm 10/14/2016 [facility] Systolic (mm Hg) 135 01/11/2016 [facility] Diastolic (mm Hg) 68 01/11/2016 [facility] Temperature Oral (F) 98.2 F 01/11/2016 [facility] Systolic (mm Hg) 148 01/11/2016 [facility] Diastolic (mm Hg) 72 01/11/2016 [facility] Respitory Rate 18 01/11/2016 [facility] Weight 51.818 01/11/2016 [facility] Height 167.64 cm 01/11/2016 [facility] BMI Calculated 18.44 01/11/2016 [facility] Systolic (mm Hg) 166 01/11/2016 [facility] Diastolic (mm Hg) 77 01/11/2016 [facility] Heart Rate 79 01/11/2016 [facility] Respitory Rate 18 01/11/2016 [facility] Temperature Oral (F) 98.3 F 01/11/2016 [facility] Height 167.64 cm 01/07/2016 [facility] Weight 51.818 01/07/2016 [facility] BMI Calculated 18.44 01/07/2016 [facility] Systolic (mm Hg) 147 01/30/2015 [facility] Diastolic (mm Hg) 80 01/30/2015 [facility] Respitory Rate 16 01/30/2015 [facility] Heart Rate 91 01/30/2015 [facility] Temperature Oral (F) 98.6 F 01/30/2015 [facility] Temperature Oral (F) 98.4 F 01/30/2015 [facility] Respitory Rate 16 01/30/2015 [facility] Heart Rate 87 01/30/2015 [facility] Systolic (mm Hg) 154 01/30/2015 [facility] Diastolic (mm Hg) 79 01/30/2015 [facility] Systolic (mm Hg) 156 01/30/2015 [facility] Diastolic (mm Hg) 85 01/30/2015 [facility] Heart Rate 91 01/30/2015 [facility] Respitory Rate 18 01/30/2015 [facility] Temperature Oral (F) 98.9 F 01/30/2015 [facility] Weight 52.006 01/26/2015 [facility] BMI Calculated 18.28 01/24/2015 [facility] Weight 51.364 01/24/2015 [facility] Height 167.64 cm 01/24/2015 [facility] Respitory Rate 18 01/19/2015 [facility] Systolic (mm Hg) 118 01/19/2015 [facility] Diastolic (mm Hg) 74 01/19/2015 [facility] Temperature Oral (F) 99.8 F 01/19/2015 [facility] Heart Rate 70 01/19/2015 [facility] Temperature Oral (F) 98.5 F 01/19/2015 [facility] Heart Rate 84 01/19/2015 [facility] Respitory Rate 18 01/19/2015 [facility] Systolic (mm Hg) 150 01/19/2015 [facility] Diastolic (mm Hg) 81 01/19/2015 [facility] Respitory Rate 20 01/19/2015 [facility] Systolic (mm Hg) 139 01/19/2015 [facility] Diastolic (mm Hg) 71 01/19/2015 [facility] Heart Rate 73 01/19/2015 [facility] Temperature Oral (F) 98.3 F 01/19/2015 [facility] Weight 51.932 01/16/2015 [facility] BMI Calculated 18.48 01/16/2015 [facility] Height 167.64 cm 01/16/2015 [facility] BMI Calculated 18.28 01/15/2015 [facility] Weight 51.364 01/15/2015 [facility] Height 167.64 cm 01/15/2015 [facility] Respitory Rate 18 01/05/2015 [facility] Systolic (mm Hg) 156 01/05/2015 [facility] Diastolic (mm Hg) 88 01/05/2015 [facility] Respitory Rate 18 01/05/2015 [facility] Heart Rate 102 01/05/2015 [facility] Temperature Oral (F) 98.8 F 01/05/2015 [facility] Respitory Rate 20 01/05/2015 [facility] Systolic (mm Hg) 147 01/05/2015 [facility] Diastolic (mm Hg) 72 01/05/2015 [facility] Heart Rate 118 01/05/2015 [facility] Temperature Oral (F) 98.7 F 01/05/2015 [facility] Systolic (mm Hg) 145 01/05/2015 [facility] Diastolic (mm Hg) 83 01/05/2015 [facility] Heart Rate 98 01/05/2015 [facility] Temperature Oral (F) 98.4 F 01/05/2015 [facility] Weight 50.54 12/30/2014 [facility] BMI Calculated 17.98 12/30/2014 [facility] Height 167.64 cm 12/30/2014 [facility] Height 167.64 cm 12/30/2014 [facility] Weight 51.364 12/30/2014 [facility] BMI Calculated 18.28 12/30/2014 [facility] Heart Rate 80 12/25/2014 [facility] Temperature Oral (F) 97.8 F 12/25/2014 [facility] Systolic (mm Hg) 146 12/25/2014 [facility] Diastolic (mm Hg) 78 12/25/2014 [facility] Respitory Rate 18 12/25/2014 [facility] Temperature Oral (F) 98 F 12/25/2014 [facility] Respitory Rate 18 12/25/2014 [facility] Systolic (mm Hg) 148 12/25/2014 [facility] Diastolic (mm Hg) 74 12/25/2014 [facility] Heart Rate 82 12/25/2014 [facility] Respitory Rate 18 12/25/2014 [facility] Systolic (mm Hg) 148 12/25/2014 [facility] Diastolic (mm Hg) 73 12/25/2014 [facility] Temperature Oral (F) 97.6 F 12/25/2014 [facility] Heart Rate 76 12/25/2014 [facility] Weight 51.364 12/21/2014 [facility] Height 165.1 cm 12/21/2014 [facility] BMI Calculated 18.84 12/21/2014 [facility] Temperature Oral (F) 97.7 F 11/27/2014 [facility] Heart Rate 82 11/27/2014 [facility] Systolic (mm Hg) 127 11/27/2014 [facility] Diastolic (mm Hg) 74 11/27/2014 [facility] Respitory Rate 18 11/27/2014 [facility] Heart Rate 64 11/27/2014 [facility] Systolic (mm Hg) 166 11/27/2014 [facility] Diastolic (mm Hg) 75 11/27/2014 [facility] Respitory Rate 18 11/27/2014 [facility] Temperature Oral (F) 97.5 F 11/27/2014 [facility] Respitory Rate 17 11/27/2014 [facility] Systolic (mm Hg) 129 11/27/2014 [facility] Diastolic (mm Hg) 72 11/27/2014 [facility] Temperature Oral (F) 98.1 F 11/27/2014 [facility] Heart Rate 72 11/27/2014 [facility] Weight 47.727 11/25/2014 [facility] BMI Calculated 16.98 11/25/2014 [facility] Height 167.64 cm 11/25/2014 [facility] Temperature Oral (F) 98.3 F 08/20/2014 [facility] Height 66 1 10/21/2013 [facility] Weight 119 08/20/2014 [facility] Heart Rate 63 08/20/2014 [facility] Diastolic (mm Hg) 84 08/20/2014 [facility] Systolic (mm Hg) 144 08/20/2014 [facility] Respitory Rate 22 08/15/2014 [facility] Diastolic (mm Hg) 63 08/15/2014 [facility] Systolic (mm Hg) 130 08/15/2014 [facility] Respitory Rate 22 08/15/2014 [facility] Respitory Rate 19 08/15/2014 [facility] Systolic (mm Hg) 132 08/15/2014 [facility] Diastolic (mm Hg) 71 08/15/2014 [facility] Temperature Oral (F) 98.8 F 08/15/2014 [facility] Diastolic (mm Hg) 71 08/15/2014 [facility] Systolic (mm Hg) 157 08/15/2014 [facility] Temperature Oral (F) 98 F 08/15/2014 [facility] Temperature Oral (F) 97.6 F 08/15/2014 [facility] Weight 54.2 08/14/2014 [facility] Height 167.64 cm 08/14/2014 [facility] BMI Calculated 19.29 08/14/2014 [facility] Weight 49.716 08/13/2014 [facility] Height 167.64 cm 08/13/2014 [facility] BMI Calculated 17.69 08/13/2014 [facility] Heart Rate 79 08/13/2014 [facility] Temperature Oral (F) 98.6 F 04/12/2014 [facility] Height 66 0 04/12/2014 [facility] Weight 117 04/12/2014 [facility] Heart Rate 67 04/12/2014 [facility] Diastolic (mm Hg) 74 04/12/2014 [facility] Systolic (mm Hg) 136 04/12/2014 [facility] Temperature Oral (F) 98.4 F 11/16/2013 [facility] Height 66 0 11/16/2013 [facility] Weight 122 11/16/2013 [facility] Heart Rate 59 11/16/2013 [facility] Diastolic (mm Hg) 70 11/16/2013 [facility] Systolic (mm Hg) 138 11/16/2013 [facility] Temperature Oral (F) 98.0 F 08/03/2013 [facility] Height 66 1 10/03/2012 [facility] Weight 122 08/03/2013 [facility] Heart Rate 78 08/03/2013 [facility] Diastolic (mm Hg) 82 08/03/2013 [facility] Systolic (mm Hg) 130 08/03/2013 [facility] Temperature Oral (F) 98.0 F 08/03/2013 [facility] Weight 122 08/03/2013 [facility] Heart Rate 78 08/03/2013 [facility] Diastolic (mm Hg) 82 08/03/2013 [facility] Systolic (mm Hg) 130 08/03/2013 [facility] Temperature Oral (F) 98.5 F 06/12/2013 [facility] Weight 126 06/12/2013 [facility] Heart Rate 67 06/12/2013 [facility] Diastolic (mm Hg) 70 06/12/2013 [facility] Systolic (mm Hg) 124 06/12/2013 [facility] Temperature Oral (F) 98.3 F 04/28/2013 [facility] Weight 126 04/28/2013 [facility] Heart Rate 76 04/28/2013 [facility] Diastolic (mm Hg) 72 04/28/2013 [facility] Systolic (mm Hg) 128 04/28/2013 [facility] Weight 57.273 03/01/2013 [facility] Height 167.64 cm 03/01/2013 [facility] Temperature Oral (F) 98.2 F 02/28/2013 [facility] Weight 125 02/28/2013 [facility] Heart Rate 84 02/28/2013 [facility] Diastolic (mm Hg) 58 02/28/2013 [facility] Systolic (mm Hg) 126 02/28/2013 [facility] Height 167.64 cm 02/24/2013 [facility] Weight 57.273 02/24/2013 [facility] Temperature Oral (F) 98.1 F 01/24/2013 [facility] Height 66 0 01/24/2013 [facility] Weight 124 01/24/2013 [facility] Heart Rate 72 01/24/2013 [facility] Diastolic (mm Hg) 84 01/24/2013 [facility] Systolic (mm Hg) 142 01/24/2013 [facility] Systolic (mm Hg) 144 04/16/2012 [facility] Respitory Rate 20 04/16/2012 [facility] Diastolic (mm Hg) 86 04/16/2012 [facility] Temperature Oral (F) 97.5 F 04/16/2012 [facility] Heart Rate 84 04/16/2012 [facility] Systolic (mm Hg) 146 04/16/2012 [facility] Diastolic (mm Hg) 81 04/16/2012 [facility] Temperature Oral (F) 99.9 F 04/16/2012 [facility] Heart Rate 100 04/16/2012 [facility] Respitory Rate 20 04/16/2012 [facility] Heart Rate 90 04/16/2012 [facility] Temperature Oral (F) 98 F 04/16/2012 [facility] Diastolic (mm Hg) 73 04/16/2012 [facility] Systolic (mm Hg) 136 04/16/2012 [facility] Respitory Rate 18 04/16/2012 [facility] Height 166.37 cm 04/12/2012 [facility] Weight 56.364 04/12/2012 [facility] Encounters Location Location Details Encounter Type Encounter Number Reason For Visit Attending Provider ADM Date DC Date Status Source [facility] Inpatient [id number] UTERINE PROLAPSE EDHENRRY TELLO 2 04/16/2012 Active [facility] Outpatient [id number] PREVIOUS CYSTOTOM EY EDHENRRY TELLO 2 Active [facility] AUDIT [id number] 2012 08/12/2012 [facility] Emergency [id number] OTHER DANIELLE VILLARREAL 09/04/2012 Active [facility] results [id number] 01/31/2013 01/31/2013 [facility] results [id number] 01/31/2013 01/31/2013 [facility] results [id number] 01/31/2013 01/31/2013 [facility] results [id number] 01/31/2013 01/31/2013 [facility] results [id number] 01/31/2013 01/31/2013 [facility] results [id number] 01/31/2013 01/31/2013 [facility] results [id number] 01/31/2013 01/31/2013 [facility] Emergency [id number] BRENTON WINSTONLEIDYROXANNA 02/24/2013 02/24/2013 Discharged [facility] Outpatient [id number] CAROTID STENOSIS GEOFFREY VICKY 03/01/2013 Active [facility] AUDIT [id number] 04/01/2013 04/01/2013 [facility] AUDIT [id number] 07/28/2013 07/28/2013 [facility] RX [id number] 08/17/2013 08/17/2013 [facility] [id number] 08/17/2013 08/17/2013 [facility] [id number] 08/17/2013 08/17/2013 [facility] [id number] 08/17/2013 08/17/2013 [facility] [id number] 08/17/2013 08/17/2013 [facility] [id number] 08/17/2013 08/17/2013 [facility] Outpatient Imaging [facility] [id number] _MAPID:[id number] Non P hysician 11/15/2013 11/16/2013 [facility] Unknown [id number] 11/16/2013 11/16/2013 [facility] Unknown [id number] 11/16/2013 11/16/2013 [facility] Unknown [id number] 11/16/2013 11/16/2013 [facility] Unknown [id number] 11/16/2013 11/16/2013 [facility] Unknown [id number] 11/16/2013 11/16/2013 [facility] Outpatient Imaging [facility] [id number] _MAPID:[id number] Everardoo reno [facility] 11/17/2013 11/18/2013 [facility] Outpatient [id number] Wandy Tatianna 01/12/2014 01/13/2014 [facility] Unknown [id number] 04/12/2014 04/12/2014 [facility] Unknown [id number] 04/12/2014 04/12/2014 [facility] Unknown [id number] 04/12/2014 04/12/2014 [facility] Unknown [id number] 04/12/2014 04/12/2014 [facility] Unknown [id number] 06/14/2014 06/14/2014 [facility] Unknown [id number] 06/14/2014 06/14/2014 [facility] Unknown [id number] 06/14/2014 06/14/2014 [facility] Unknown [id number] 07/20/2014 07/20/2014 [facility] Unknown [id number] 07/20/2014 07/20/2014 [facility] Inpatient [id number] Carrington Hernández 08/13/2014 08/15/2014 [facility] Message [id number] 08/16/2014 08/16/2014 [facility] Message [id number] 08/16/2014 08/16/2014 [facility] Outpatient [id number] Edward Nuila Elisha 5 10/04/2014 [facility] [id number] Edward Nuila Elisha 5 10/10/2014 [facility] [id number] Evin Blanc 10/22/2014 10/23/2014 [facility] [id number] Everardotnsally Mazariegos 11/25/2014 11/27/2014 [facility] In[facility] [id number] Everardotnsally [facility] 12/21/2014 12/25/2014 [facility] [id number] Valdez Hargrove 12/30/2014 01/05/2015 [facility] [id number] Valdez Hargrove 01/15/2015 01/19/2015 [facility] [id number] Everardotnsally Delilah 01/24/2015 01/30/2015 [facility] [id number] Juanjose Meyer 04/15/2015 04/16/2015 [facility] [id number] Evin Bhuchar 08/05/2015 08/06/2015 [facility] [id number] Evin Bhuchar 08/15/2015 08/16/2015 [facility] Recurring [id number] Evin Bhuchar 09/26/2015 09/27/2015 [facility] [id number] Evin Bhuchar 11/07/2015 11/08/2015 [facility] [id number] Eduin Purdy II 12/13/2015 12/14/2015 [facility] [id number] Juanjose Meyer 01/07/2016 01/08/2016 [facility] [id number] Danielle Villarreal 01/11/2016 01/11/2016 [facility] [id number] Evin Bhuchar 01/27/2016 01/28/2016 [facility] [id number] Juanjose Meyer 02/03/2016 02/04/2016 [facility] [id number] Evin Bhuchar 02/17/2016 02/18/2016 [facility] [id number] Eduin Purdy II 08/13/2016 08/14/2016 [facility] [id number] Juanjose Meyer 08/17/2016 08/18/2016 [facility] [id number] Evin Bhuchar 08/28/2016 08/29/2016 [facility] [id number] Jostin Sánchez 10/14/2016 10/16/2016 [facility] [id number] Juanjose Meyer 11/23/2016 11/24/2016 [facility] [id number] Juanjose Meyer 04/05/2017 04/06/2017 [facility] [id number] Juanjose Mitch 06/14/2017 06/15/2017 [facility] Outpatient [id number] Sharla Mazariegos 07/19/2017 07/20/2017 [facility] Inpatient [id number] Melvin Bae 07/20/2017 07/23/2017 [facility] Emergency [id number] Graciela Mejia 09/05/2017 09/05/2017 [facility] Outpatient [id number] Juanjose Meyer 12/20/2017 12/21/2017 [facility] Outpatient [id number] Damien Hermosillo 06/19/2018 06/20/2018 [facility] Outpatient [id number] Juanjose Meyer 07/11/2018 07/12/2018 [facility] Outpatient [id number] Juanjose Meyer 08/01/2018 08/02/2018 [facility] [place] [facility] Di[facility] Services [id number] Juanjose Meyer 10/17/2018 10/18/2018 [facility] [place] [facility] Outpatient [id number] Juanjose Meyer 01/23/2019 01/24/2019 [facility] Outpatient [id number] Damien Hermosillo 04/25/2019 04/26/2019 [facility] Outpatient [id number] Vamsi Crowley 05/17/2019 Active [facility] Outpatient [id number] Vamsi Crowley 05/17/2019 05/18/2019 [facility] Out[facility] [id number] Vamsi Crowley 06/09/2019 Active [facility] Day Surgery [id number] Vamsi Crowley 06/09/2019 06/10/2019 [facility] Outpatient [id number] Vamsi Crowley 06/26/2019 Active [facility] Urology [facility] Outpatient [id number] Vamsi Crowley 06/26/2019 06/27/2019 [facility] Urology [facility] Phone Message [id number] 07/10/2019 07/12/2019 [facility] [id number] Vamsi Crowley 07/11/2019 Active [facility] Outpatient [id number] Vamsi Crowley 07/11/2019 07/12/2019 [facility] [id number] 07/14/2019 07/15/2019 [facility] Outpatient [id number] Vamsi Crowley 07/31/2019 Active [facility] Outpatient [id number] Vamsi Crowley 07/31/2019 08/01/2019 [facility] Outpatient [id number] [facility] 08/14/2019 08/15/2019 [facility] Outpatient [id number] [facility] 11/08/2019 11/09/2019 [facility] Procedures Procedure Code Date Perfomer Comments Source Insertion of non-indwelling bladder cath eter (eg, straight catheterization for residual urine) 11671 05/17/2019 [facility] Bladder operation [id number] [facility], [facility] [place],[facility] Cholecystectomy [id number] [facility], [facility] [place] Hernia repair [id number] [facility] [place] Hysterectomy [id number] [facility], [facility] [place],[facility] Insertion of Port-a-cath<sup>1</sup> [id number] left side. oct 2014 placed [facility], [facility] [place], [place],[facility] Hernia repair [id number] [facility] Insertion of Port-a-cath [id number] 6000 [facility] Assessment and Plan Assessment and Plan Date Source Extracted from:Title: Clinical Document Author: Vmasi Crowley MD Date: 06/09/19 PATIENT NAME:Cecily Walter DATE OF OPERATION/PROCEDURE:06/09/2019 *_*_* PREOPERATIVE DIAGNOSES: 1. Anterior vaginal prolapse 2.Stress urinary incontinence POSTOPERATIVE DIAGNOSES: 1. Same as above 2. Enterocele PROCEDURE PERFORMED: 1. Anterior repair with dermis 2. Altis urethral sling 3. Cystoscopy SURGEON: Vamsi Crowley M.D. PLATE GRAINER APPRENTICE: None ANESTHESIA: General. ESTIMATED BLOOD LOSS: 70mL. COMPLICATIONS: None. SPECIMEN: None DRAINS: 16 [place]i Spencer catheter INDICATIONS FOR PROCEDURE: This is a 73-year-old woman with a history of vaginal prolapse for the past several years. She has obstructive urinary symptoms as well as stress urinary incontinence. She is here for operative correction. PROCEDURE IN DETAIL: After the procedure and risks were explained to the patient and consent reviewed, she was brought back to the operative suite. The patient was placed in supine position and put under general anesthesia. Once adequate anesthesia was obtained the patient was placed in modified dorsal lithotomy position. The perineal, genital, and lower abdomen areas were prepped and draped in the usual sterile fashion and preoperative antibiotics were given. Spencer catheter was placed in the bladder. The patient had a grade 3 prolapse. Dilute Pitressin was injected submucosally in the anterior vaginal wall. Midline was incision was made and the mucosa was dissected off the underlying layer bilaterally. The patient was also noted to have an enterocele coming from the cervical defect from the hysterectomy. This was densely adherent to the vaginal mucosa extending to the posterior side down towards the rectum. This was sharply dissected away from the bladder but no attempts were made to repair this. The sacrospinous ligaments were identified bilaterally. Stat tack device was used to secure 2-0 Prolene sutures to the sacral spinous ligaments bilaterally. 2 additional stat tack sutures with 2-0 Prolene suturewere placed distally in the obturator internus fascia. The cadaveric dermis was trimmed to fit the anterior vaginal wall and secured in the midline at the apex and at the proximal portion of the bladder neck with 2-0 PDS suture. The dermis was then secured using the preplaced Prolene sutures as well as a midline PDS sutures. There was good reduction of the cystocele. Excess mucosa was excised and the incision was closed using 3-0 Vicryl in interrupted fashion.Cystoscopy showed no signs of any stones, foreign objects, tumor, or bladder injury. Attention was then turned to the urethral sling. Pitressin was injected into the anterior urethra and a midline incision was made. The mucosa was dissected off the underlying layer bilaterally. Altis urethral sling was then placed at the mid urethra. Cystoscopy was then performed again showing no signs of bladder injury and the bladder was left full. Tensioning suture was adjusted on the Altis sling until there was no incontinence with manual Valsalva. The incision was then closed with 3-0 Vicryl in interrupted fashion. Spencer catheter and vaginal pack were placed in the bladder and vagina respectively. The patient tolerated procedure well, was awakened fromgeneral anesthesia, and sent to the PACU in good condition 06/10/2019 [facility] Extracted from:Title: Progress Note * Author: Ross Sifuentes MD Date: 07/22/17 Impression and Plan 1: Acute COPD exacerbation:/Small left p leural effusion: Continue supplemental oxygen and nebs treatment and steroids as per pulmonology recommendations. Continue empiric antibiotics. 2: Hypertension: Blood pressure above goal at present. Agree with increasing valsartan at home dose of 320 mg p.o. daily. Continue to monitor blood pressure for any further adjustment. Patient mentioned that she has been intolerant to amlodipine and calcium channel blockers due to getting swelling in her legs in the past. So we will try to avoid calcium channel blockers at present. 3: History of breast cancer: Continue home dose and follow-up as outpatient with the primary oncologist. 4: Leukopenia: Probably infectious related. But will recheck WBC and CBC again today if persistently is still low would consider oncology input. 5: Hypothyroidism: Continue home dose Synthroid. 6: Dyslipidemia: Continue statins. Prophylaxis as per algorithm. 07/22/2017: Continue IV antibiotics and i npatient care. Patient still short of breath follow on pulmonology recommendation. Case discussed with Dr. Mazariegos 07/23/2017 [facility] Extracted from:Title: Progress Note - Tu ck In Author: Maria E Bonilla MD Date: 10/14/16 Patient admitted to the service of Dr Sánchez. Hospitalist group was asked to provide tuck-in service. Patient presented with generalized weakness, poor oral intake. She was found to have low sodium. She has a history of breast cancer and SIADH. She was given IV fluids and had some improvement in sodium level. Will add order for IV fluids at a low rate to avoid too rapid correction, and order for morning labs. Dr Sánchez to follow in the morning. 10/16/2016 [facility] Extracted from:Title: ID Author: May Sevilla MD Date: 01/30/15 INFECTIOUS DISEASE PROGRESS NOTE 01/30/15 SUBJECTIVE: Cough and SOB better. Non productive cough. Spencer removed. No N/V or diarrhea. Afebrile Tm 99.1. PHYSICAL EXAMINATION: VITAL SIGNS: Blood pressure 139/69, pulse 82, respiratory rate 18, temperature 97.9. GENERAL: The patient is in moderate respiratory distress. She is currently on BiPAP. HEENT: Atraumatic, normocephalic. NECK: Supple. LUNGS: Decreased breathing sounds bibasilar, prolonged expiration, probable bibasilar rales. HEART: Regular rate and rhythm. ABDOMEN: Bowel sounds are present, nontender, nondistended. EXTREMITIES: No edema. NEUROLOGIC: Alert, oriented x 3. LABORATORY DATA: Reviewed ANTIBIOTICS: Inhaled colistin. ASSESSMENT AND PLAN: This is a 69-year-old female with the following problems: 1. Respiratory distress requiring BiPAP support. The differential diagnosis is broad and includes infectious or noninfectious conditions. On admission the patient did not had many features of infection. Remains afebrile and no leukocytosis. Normal serum procalcitonin level. In addition, her CT scan of the chest did not report left lung infiltrates. Empiric IV antibiotics discontinued by the team. As she is immunocompromised, continue Colistin Nebulization for 4 more days. 2. Recurrent hyponatremia, probable ANA DH. The management is per primary team. 3. Chronic obstructive pulmonary diseas e exacerbation. Management per primary service. 4. Breast cancer with metastasis to mary er and bones. Management per primary team. 5. Other chronic medical conditions inc luding hypertension and hypothyroidism. Management per primary team. Awaiting placement. 01/30/2015 [facility] Extracted from:Title: ID Author: May Sevilla MD Date: 01/04/15 INFECTIOUS DISEASE PROGRESS NOTE 01/04/15 SUBJECTIVE: No new complaints. Minimal dry cough. No SOB, CP, N/V or diarrhea. Afebrile 99.1. PHYSICAL EXAMINATION: VITAL SIGNS: T-max 99, blood pressure is 154/84, pulse 102, respiratory rate 20, O2 sat 99% on room air. GENERAL: No apparent distress, sitting comfortably in bed. HEENT: Normocephalic, atraumatic. Hair loss secondary to chemotherapy. Pupils are round and equal, reactive to light. No conjunctival injection, anicteric. No sinus tenderness. Oropharynx clear, no evidence of thrush. NECK: Supple, no lymphadenopathy. LUNGS: Decreased breath sounds at bases. No wheezes, rales, rhonchi. CARDIOVASCULAR: Regular rate and rhythm. ABDOMEN: Soft, nontender. No masses. Bowel sounds present. EXTREMITIES: No edema. LINES: She has a left chest wall Port-A-Cath and peripheral IV line. NEUROLOGIC: Alert, awake, oriented. LABORATORY DATA: Reviewed ANTIMICROBIALS: Colistin Neb 100 mg b.i.d. ASSESSMENT AND PLAN: 1. A 69-year-old female with metastatic breast cancer, COPD, SIADH, admitted with hyponatremia and with multi-drug resistant Acinetobacter pneumonia. 2. CT chest findings still showed infil trates. Patient was recently treated for pneumonia a week ago. Sometimes radiological clearance may lag behind. The patient is symptomatically better with resolution of fever and minimal cough. Acinetobacter isolated may just be colonization in respiratory tract, but since patient is immunocompromised with metastatic breast cancer with recent chemotherapy 2 weeks ago and history of COPD, we are treating patient with colistin nebulization for 5 days. 3. Urinary retention: resolved 4. Hyponatremia and SIADH management pe r primary team. 5. Other chronic medical condition, hyp ertension, chronic obstructive pulmonary disease and metastatic breast cancer, management per primary team. Likely discharge tomorrow. 01/05/2015 [facility] Plan of Care No Data Provided for This Section Social History Social History Date Source Social History TypeResponse Alcohol Past1 Employment/School Status: Employed. Highest education level: University degree(s). Exercise Exercise type: Walking, Yoga. Sexual Sexually active: No. Substance Abuse Use: None. Smoking Status Former smoker; Previous treatment: None; Ready to change: No; Concerns about tobacco use in household: No; Exposure to Tobacco Smoke None; Cigarette Smoking Last 365 Days No; Reg Smoking Cessation Counseling No; Started at age: 1.0; Stopped at age: 1; 2 entered on: 07/31/19 1"when I was younger" stated by patient, does not consume alcohol anymore.2smoked 25 years ago, stopped smoking 01/25/2015 [facility] Social History TypeResponse Alcohol Past1 Employment/School Status: Employed. Highest education level: University degree(s). Exercise Exercise type: Walking, Yoga. Sexual Sexually active: No. Substance Abuse Use: None. Smoking Status Former smoker; Previous treatment: None; Ready to change: No; Concerns about tobacco use in household: No; Exposure to Tobacco Smoke None; Cigarette Smoking Last 365 Days No; Reg Smoking Cessation Counseling No; Started at age: 1.0; Stopped at age: 1; 2 entered on: 09/05/17 1"when I was younger" stated by patient, does not consume alcohol anymore.2smoked 25 years ago, stopped smoking 01/25/2015 [facility] Social History TypeResponse Alcohol Past1 Employment/School Status: Employed. Highest education level: University degree(s). Exercise Exercise type: Walking, Yoga. Sexual Sexually active: No. Substance Abuse Use: None. Smoking Status Former smoker; Previous treatment: None; Ready to change: No; Concerns about tobacco use in household: No; Exposure to Tobacco Smoke None; Cigarette Smoking Last 365 Days No; Reg Smoking Cessation Counseling No; Started at age: 1.0; Stopped at age: 1; 2 entered on: 07/31/19 1"when I was younger" stated by patient, does not consume alcohol anymore.2smoked 25 years ago, stopped smoking 01/25/2015 [facility] Social History TypeResponse Alcohol Past1 Employment/School Status: Employed. Highest education level: University degree(s). Exercise Exercise type: Walking, Yoga. Sexual Sexually active: No. Substance Abuse Use: None. Smoking Status Former smoker; Previous treatment: None; Ready to change: No; Concerns about tobacco use in household: No; Exposure to Tobacco Smoke None; Cigarette Smoking Last 365 Days No; Reg Smoking Cessation Counseling No; Started at age: 0.0; Stopped at age: 1; 2 entered on: 09/05/17 1"when I was younger" stated by patient, does not consume alcohol anymore.2smoked 25 years ago, stopped smoking 01/25/2015 [facility] Social History ElementQualifiersDate Rep orted Caffeine: yes. frequency:2 cups a day Aug 20, 2014 Tabacco Use no. Status Former Smoker Aug 20, 2014 08/20/2014 [facility] Social History TypeResponse 11/18/2013 [facility] Caffeine Use (Active) Exercis ing Regularly (Active) 07/28/2013 [facility] Family History No Data Provided for This Section Advance Directives Order Name Results Value Date Source Advance Directives Advance Dir ectives No Advance Directives available. 07/28/2013 [facility] Advance Directives Advance Dir ectives No Advance Directives available. 04/01/2013 [facility] Advance Directives Advance Dir ectives No Advance Directives available. 08/12/2012 [facility] Functional Status No Data Provided for This Section
--- OUTSIDE RECORDS SUMMARY | 2020-04-14 11:57 | XMS REPORT ---
Author Author CECILY ALMAZAN [facility] [employer] Address Unknown Phone Unavailable Care Team Providers Care Condominium Property Manager Name Role Phone TALI ALMAZAN Unavailable Encounters Encounter Location Date lab results [facility] January 31, 2013 [facility] Aug 17, 2013 Problems Problem Type Condition ICD-9 Code Onset Dates Condition Statu s Problem COPD 496 Active Problem Sinusitis, Chronic 473.9 Active Problem Asthmatic Bronchitis, Unspecified 493.90 Active Medications Medication Code System Code Instructions Start Date End Date Status Dosage Augmentin MULTUM 589 875 mg-125 mg orally every 12 hours Aug 17 13 Active 1 tab(s) Social History Social History Element Qualifiers Date Reported Caffeine: yes. frequency:2 cups a day Aug 03 3 Tabacco Use no. Status Former Smoker Aug 03, 2013 Vital Signs Date/Time: Aug 03, 2013 Temperature 98.0 F Height 66 inches Weight 122 lbs Cardiac Monitoring Heart Rate 78 Beats per Minute Blood Pressure Diastolic 82 mm Hg Blood Pressure Systolic 130 mm Hg Summary Purpose eClinicalWorks Submission
--- OUTSIDE RECORDS SUMMARY | 2020-04-14 11:57 | XMS REPORT ---
Author Author CECILY ALMAZAN Organization [employer] Address Unknown Phone Unavailable Care Team Providers Care Pouncer Name Role Phone TALI ALMAZAN CP Unavailable Allergies No Known Allergies Problems Problem Type Condition Code Onset Dates Condition Statu s Problem COPD 496 Active Problem Sinusitis, Chronic 473.9 Active Problem Asthmatic Bronchitis, Unspecified 493.90 Active Problem Asthma w/Acute Exacerbation 493.92 Active Medications No Known Medications Results No Known Results Summary Purpose eClinicalWorks Submission
--- OUTSIDE RECORDS SUMMARY | 2020-04-14 11:57 | XMS REPORT ---
Author Author CECILY ALMAZAN [facility] [employer] Address Unknown Phone Unavailable Care Team Providers Care Planning Feeder Name Role Phone TALI ALMAZAN Unavailable Allergies, Adverse Reactions, Alerts Substance Reaction Event Type N.K.D.A. Info Not Available Non Drug Allergy Problems Problem Type Condition Code Onset Dates Condition Statu s Assessment Sinusitis, Chronic 473.9 Active Problem COPD 496 Active Problem Sinusitis, Chronic 473.9 Active Problem Asthmatic Bronchitis, Unspecified 493.90 Active Assessment Hyponatremia 276.1 Active Assessment COPD 496 Active Problem Asthma w/Acute Exacerbation 493.92 Active Medications Medication Code System Code Instructions Start Date End Date Status Dosage Calcium 600+D ND 30623302255 600 mg-200 units orally 3 times a day Active 1 tab(s) Advair Diskus ND 86845083612 500 mcg-50 mcg inhaled bid December 132012 Active use one inhalation twice daily Xopenex ND 33279972024 0.63 mg/3 mL by nebulizer bid Active 3 ml fluticasone nasal ND 31992900089 50 mcg/inh intranasally once a day Jul 18, 2013 Active 1 spray(s) Boniva ND 72923149070 150MG Active TAKE 1 TAB(S ) ONCE A MONTH ORALLY Avelox ND 92885547202 400 mg orally once a day Apr 28, 2013 Active 1 tab(s) Levaquin ND 59689669547 500 mg orally every 24 hours Jun 14, 2014 Active 1 tab(s) Linda-C ND 88308610322 1000 mg orally once a day Ac tive 1 tab(s) Saline Mist ND 22578230862 0.65% intranasally bid Jun 23, 2012 Active 2 spray(s) ibandronate ND 22607446798 150 mg orally once a month March 13, 2014 Active 1 tab(s) levothyroxine ND 49680933018 0.075MG orally once a day Active 1 tab(s) prednisone ND 62475935783 20 mg orally once a day Jul 20, 2014 Active 2 tabs Augmentin [facility] 52915993762 875 mg-125 mg orally every 12 hours No v 2013 Active 1 tab(s) simvastatin ND 35138738794 20 mg orally once a day (at bedtim e) April 03, 2013 Active 1 tab(s) Duexis ND 69013222293 26.6 mg-800 mg orally 3 times a day Active 1 tab(s) Mucinex ND 49551353015 600 mg orally every 12 hours Aug 03, 2013 Active 1 tab(s) Ventolin HFA NDC 0 CFC free 90 mcg/inh inhaled qid prn Oct 12, 2013 Active 2 puff(s) Zocor ND 41267830940 20 mg orally once a day (at bedtime) Active 1 tab(s) Spiriva ND 09822924230 18MCG Active INHALE ONE V IA HANDIHALER ONE TIME DAILY Astelin ND 03241085951 137 mcg/inh intranasally QD February 08, 2014 Active 2 spray(s) omega-3 polyunsaturated fatty acids [facility] 33337789745 ethyl esters 1000 mg orally 2 times a day Active 2 cap(s) guaifenesin ND 88506679836 400 mg orally every 4 hours Apr 28, 2013 Active 1 tab(s) Diovan ND 51486634929 80 mg orally once a day Acti ve 1 tab(s) Vital Signs Date/Time: Aug 20, 2014 Temperature 98.3 F Height 66 in Weight 119 lbs BMI 19.21 Index Cardiac Monitoring Heart Rate 63 /min Blood Pressure Diastolic 84 mm Hg Blood Pressure Systolic 144 mm Hg Results No Known Results Summary Purpose eClinicalWorks Submission
--- OUTSIDE RECORDS SUMMARY | 2020-04-14 11:57 | XMS REPORT | Summary of Care ---
Author Author [facility] Organization [facility] Address Unknown Phone Unavailable Encounter TOYIN Mcdowell(ANT) [id number] Date(s): 07/19/17 - 07/19/17 [facility] [address] [place] [address]- Discharge Disposition: Home or Self Care Attending Physician: Sharla Mazariegos MD Admitting Physician: Sharla Mazariegos MD Vital Signs No data available for [...] Active syndrome9, 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/01/11 Active [id number], 12 Sprain of foot13, 14 01/01/11 Active [...] Substance Reaction Severity Status "RAW SHRIMP" Active Food Shrimp Active NKDA Active Medications No data available for this section Results No data available for this section Immunizations Given and Recorded Vaccine Date Status Refusal Reason Hx influenza vaccine-unspecified 05/14/17 Given Hx pneumococcal vaccine 11/12/11 Given influenza virus vaccine, inactivated 07/02/14 G iven Procedures Procedure Date Related Diagnosis Body Site Bladder operation Cholecystectomy Hernia repair Hysterectomy Insertion of [id number]-b-[id number] 1left side. oct 2014 placed Social History Social History Type Response Substance Abuse Use: None. Sexual Sexually active: No. Exercise Exercise type: Walking, Yog a. Employment/School Status: Employed. Highest education level: University degree(s). Alcohol Past1 Smoking Status Former smoker; Started at a ge: 0.0; Stopped at age: 1; Previous treatment: None; Ready to change: No; Concerns abo ut tobacco use in household: No; Exposure to Tobacco Smoke None; Cigaret te Smoking Last 365 Days No; Reg Smoking Cessation Counseling No2 1"when I was younger" stated by patient, does not consume alcohol anymore. 2smoked 25 years ago, stopped smoking Assessment and Plan No data available for this section
--- OUTSIDE RECORDS SUMMARY | 2020-04-14 11:57 | XMS REPORT ---
Author Author CECILY ALMAZAN [facility] eClinical[employer] Address Unknown Phone Unavailable Care Team Providers Care Fleet Service Manager Name Role Phone TALI ALMAZAN Unavailable Allergies, Adverse Reactions, Alerts Substance Reaction Event Type N.K.D.A. Info Not Available Non Drug Allergy Problems Problem Type Condition Code Onset Dates Condition Statu s Assessment COPD 496 Active Assessment Dyspnea 786.09 Active Problem COPD 496 Active Problem Sinusitis, Chronic 473.9 Active Problem Asthmatic Bronchitis, Unspecified 493.90 Active Assessment Sinusitis, Acute, Unspecified 461.9 Active Assessment Sinusitis, Chronic 473.9 Active Problem Asthma w/Acute Exacerbation 493.92 Active Medications Medication Code System Code Instructions Start Date End Date Status Dosage guaifenesin ND 68560256474 400 mg orally every 4 hours Apr 28, 2013 Active 1 tab(s) Linda-C NDC 32375606125 1000 mg orally once a day Ac tive 1 tab(s) Ventolin HFA NDC 0 CFC free 90 mcg/inh inhaled qid January 06, 013 Active 2 puff(s) Spiriva NDC 0 18MCG inhaled QD Active inhale one via handihaler one time daily Mucinex ND 55652462153 600 mg orally every 12 hours Aug 03, 2013 Active 1 tab(s) Avelox ND 96856236249 400 mg orally once a day Apr 28, 2013 Active 1 tab(s) levothyroxine ND 53264354253 75 mcg (0.075 mg) orally once a day Jun 30, 2013 Active 1 tab(s) Xopenex NDC 82352836397 0.63 mg/3 mL by nebulizer bid Active 3 ml Zocor ND 64445125445 20 mg orally once a day (at bedtime) Active 1 tab(s) fluticasone nasal NDC 22025619816 50 mcg/inh intranasally once a day Jul 18, 2013 Active 1 spray(s) Diovan ND 35011956746 80 mg orally once a day Acti ve 1 tab(s) Duexis [facility] 00018377956 26.6 mg-800 mg orally 3 times a day Active 1 tab(s) Levaquin ND 55312504716 500 mg orally every 24 hours Aug 03, 2013 Active 1 tab(s) Astelin ND 63789045590 137 mcg/inh intranasally QD January 06, 2013 Active 2 spray(s) simvastatin ND 39740377859 20 mg orally once a day (at bedtim e) April 03, 2013 Active 1 tab(s) ibandronate ND 09845571668 150 mg orally once a month Jul 20, 2013 Active 1 tab(s) Boniva ND 73616970385 150 mg orally once a month April 03, 2013 Active 1 tab(s) Calcium 600+D [facility] 25113902143 600 mg-200 units orally 3 times a day Active 1 tab(s) omega-3 polyunsaturated fatty acids [facility] 74336082155 ethyl esters 1000 mg orally 2 times a day Active 2 cap(s) Advair Diskus [facility] 91410070394 500 mcg-50 mcg inhaled bid December 132012 Active use one inhalation twice daily Saline Mist ND 69003558945 0.65% intranasally bid Jun 23, 2012 Active 2 spray(s) Vital Signs Date/Time: Aug 03, 2013 Temperature 98.0 F Height N/A in Weight 122 lbs BMI 19.69 Index Cardiac Monitoring Heart Rate 78 /min Blood Pressure Diastolic 82 mm Hg Blood Pressure Systolic 130 mm Hg Results No Known Results Summary Purpose eClinicalWorks Submission
--- OUTSIDE RECORDS SUMMARY | 2020-04-14 11:58 | XMS REPORT | Summary of Care ---
Author Author [facility] Organization [facility] Address Unknown Phone Unavailable Encounter TOYIN Mcdowell(ANT) [id number] Date(s): 06/26/19 - 06/26/19 [facility] [address] [place] [address]- [phone] Discharge Disposition: Home or Self Care Attending Physician: Vamsi Crowley MD Vital Signs Most recent to 1 oldest [Reference Range]: Height 154.94 cm (06/26/19 10:09 AM) Blood Pressure 153/83 mmHg [90-140/60-90 mmHg] *HI* (06/26/19 10:09 AM) Peripheral Pulse 94 bpm Rate [60-100 bpm] (06/26/19 10:09 AM) Weight 46.818 kg (06/26/19 10:09 AM) Body Mass Index 19.5 m2 (06/26/19 10:09 AM) Problem List Condition Effective Dates Status Health [...] Active syndrome9, 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/01/11 Active [id number], 12 Sprain of foot13, 14 01/01/11 Active [...] NKDA Active Food Shrimp Active Medications No Known Medications Results No data available for this section Immunizations Given and Recorded Vaccine Date Status Refusal Reason Hx influenza vaccine-unspecified 05/14/17 Given influenza virus vaccine, inactivated 07/02/14 G iven Hx pneumococcal vaccine 11/12/11 Given Procedures Procedure Date Related Diagnosis Body Site Status Bladder operation Completed Cholecystectomy Completed Hernia repair Completed Hysterectomy Completed Insertion of [id number]-n-[id number] Completed 1left side. oct 2014 placed Social [...] at age: 1 ; 2 entered on: 06/26/19 1"when I was younger" stated by patient, does not consume alcohol anymore. 2smoked 25 years ago, stopped smoking Assessment and Plan No data available for this section
--- OUTSIDE RECORDS SUMMARY | 2020-04-14 11:58 | XMS REPORT | Summary of Care ---
Author Author [facility] Organization [facility] Address Unknown Phone Unavailable Encounter TOYIN Mcdowell(ANT) [id number] Date(s): 09/05/17 - 09/05/17 [facility] [address] [place] [address]- Discharge Diagnosis: Closed fracture of triquetral bone of left wrist Discharge Disposition: Home or Self Care Attending Physician: Graciela Mejia MD Vital Signs Most recent to 1 2 oldest [Reference Range]: Height 157.48 cm (09/05/17 10:04 AM) Temperature Oral 98.4 DegF 98.1 DegF [96.4-99.1 DegF] (09/05/17 12:34 PM) (09/05/17 10:04 AM ) Blood Pressure 163/76 mmHg 159/80 mmHg [90-140/60-90 mmHg] *HI* *HI* (09/05/17 12:34 PM) (09/05/17 10:04 AM) Respiratory Rate 16 BRMIN 16 BRMIN [14-20 BRMIN] (09/05/17 12:34 PM) (09/05/17 10:04 AM ) Peripheral Pulse 83 bpm 109 bpm Rate [60-100 bpm] (09/05/17 12:34 PM) *HI* (09/05/17 10:04 AM) Weight 50 kg (09/05/17 10:04 AM) Body Mass Index 20.16 m2 (09/05/17 10:04 AM) Problem List Condition Effective Dates Status [...] Active syndrome9, 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/01/11 Active [id number], 12 Sprain of foot13, 14 01/01/11 Active [...] operation Cholecystectomy Hernia repair Hysterectomy Insertion of [id number] 1left side. oct 2014 placed Social History [...] 0.0; Stopped at age: 1 ; 2 1"when I was younger" stated by patient, does not consume alcohol anymore. 2smoked 25 years ago, stopped smoking Assessment and Plan No data available for this section
--- OUTSIDE RECORDS SUMMARY | 2020-04-14 11:58 | XMS REPORT | Summary of Care ---
Author Author [facility] Organization [facility] Address Unknown Phone Unavailable Encounter TOYIN Mcdowell(ANT) [id number] Date(s): 07/20/17 - 07/23/17 [facility] [address] [place] [address]- [phone] Discharge Disposition: Home or Self Care Attending Physician: Melvin Bae DO Admitting Physician: Melvin Bae DO Vital Signs 1 2 3 Most recent to oldest [Reference Range]: 160.02 cm (07/20/17 12:49 PM) Height 98.2 DegF (07/23/17 11:57 AM) 97.7 DegF (07/23/17 7:44 AM) 98.3 DegF (07/23/17 4:00 AM) Temperature Oral [96.4-99.1 DegF] 165/82 mmHg *HI* (07/23/17 11:57 AM) 111/71 mmHg (07/23/17 7:44 AM) 160/88 mmHg *HI* (07/23/17 4:00 AM) Blood Pressure [90-140/60-90 mmHg] 18 BRMIN (07/23/17 4:00 AM) 18 BRMIN (07/22/17 11:54 PM) 18 BRMIN (07/22/17 8:07 PM) Respiratory Rate [14-20 BRMIN] 84 bpm (07/23/17 11:57 AM) 63 bpm (07/23/17 7:44 AM) 75 bpm (07/23/17 4:00 AM) Peripheral Pulse Rate [60-100 bpm] 49.545 kg (07/20/17 12:49 PM) Weight 19.35 m2 (07/20/17 12:49 PM) Body Mass Index Problem List Condition Effective Dates Status Health [...] Active syndrome9, 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/01/11 Active tctteuff51, 12 Sprain of foot13, 14 01/01/11 Active [...] Active NKDA Active Food Shrimp Active Medications acetaminophen 650 mg, 2 tab, Route: PO, Drug form: TAB, Q4H, Dosing Weight 49.545, kg, PRN For Temp > 100.4 F, Start date: 07/20/17 19:44:00 [employer], Duration: 30 day, Stop date: 08/19/17 19:43:00 [employer] Notes: Do not exceed 4 gm/day. (Same as: Tylenol) Start Date: 07/20/17 Stop Date: 07/23/17 Status: Discontinued acetaminophen 650 mg, 2 tab, Route: PO, Drug form: TAB, Q4H, Dosing Weight 49.545, kg, PRN Juaquin n 1-3/Temp > 100.4 F, Start date: 07/20/17 18:52:00 [employer], Duration: 30 day, Stop date: 08/19/17 18:51:00 [employer] Notes: Do not exceed 4 gm/day. (Same as: Tylenol) Start Date: 07/20/17 Stop Date: 07/23/17 Status: Discontinued Advair Diskus 500 mcg-50 mcg inhalation powder 1 inhalation, Route: INHALER, Drug Form: AERO, Dosing Weight 49.545, kg, Daily, Start date: 07/22/17 9:00:00 [employer], Duration: 30 day, Stop date: 08/20/17 9:00:00 [employer] Notes: Non-Formulary Drug(Same as: Advair) Start Date: 07/22/17 Stop Date: 07/23/17 Status: Discontinued albuterol 1.25 mg, 3 mL, Route: NEB, Drug form: SOLN, Q8H, PRN Wheezing, Start date: 07/22 11:20:00 [employer], Duration: 30 day, Stop date: 08/21/17 11:19:00 [employer] Notes: SEE RT DOCUMENTATION (Same as: Proventil) Start Date: 07/22/17 Stop Date: 07/23/17 Status: Discontinued albuterol 1.25 mg, 3 mL, Route: NEB, Drug form: SOLN, RQ6H, Start date: 07/20/17 20:00:00 [employer], Duration: 30 day, Stop date: 08/19/17 14:00:00 [employer] Notes: SEE RT DOCUMENTATION (Same as: Proventil) Start Date: 07/20/17 Stop Date: 07/20/17 Status: Deleted albuterol-ipratropium 2.5-0.5 mg inhalation solution 9 mL, Route: NEB, Drug Form: SOLN, Dosing Weight 49.545, kg, ONCE, STAT, Start d ate: 07/20/17 13:47:00 [employer], Stop date: 07/20/17 13:47:00 [employer] Notes: (Same as: Duoneb) Start Date: 07/20/17 Stop Date: 07/20/17 Status: Completed amLODIPine 10 mg, 1 tab, Route: PO, Drug form: TAB, Daily, Dosing Weight 49.545, kg, Start date: 07/22/17 11:30:00 [employer], Duration: 30 day, Stop date: 08/21/17 9:00:00 [employer] Notes: (Same as: Norvasc) Start Date: 07/22/17 Stop Date: 07/22/17 Status: Discontinued anastrozole 1 mg, 1 tab, Route: PO, Drug form: TAB, Daily, Dosing Weight 49.545, kg, Start d ate: 07/22/17 12:00:00 [employer], Duration: 30 day, Stop date: 08/21/17 9:00:00 [employer] Notes: (Same as: Arimidex)Chemotherapy agent/Handle with cautionWASTE: F/P - Blair ck; E - Yellow Start Date: 07/22/17 Stop Date: 07/23/17 Status: Discontinued anastrozole 1 mg oral tablet 1 mg = 1 tab, PO, Daily, # 30 tab, 0 Refill(s) Start Date: 07/21/17 Status: Ordered Astelin 137 mcg/inh nasal spray 2 inhalation, Route: NASAL, Drug Form: SPRY, Dosing Weight 49.545, kg, PRN, PRN as needed for allergy symptoms, Start date: 07/22/17 10:20:00 [employer], Duration: 30 day, Stop date: 08/21/17 10:19:00 [employer] Notes: (azelastine 137 microgram/inh 34 ml nasal SPR) Non-formulary drug. Same As: Astelin) Start Date: 07/22/17 Stop Date: 07/23/17 Status: Discontinued Astelin 137 mcg/inh nasal spray 2 spray, NASAL, PRN, 0 Refill(s) Start Date: 07/21/17 Status: Ordered Seneca Saline Nasal 0.65% solution 2 spray, Route: NASAL, PRN, Drug form: SOLN, PRN Other -See Comment, Start date: 07/22/17 10:23:00 [employer], Duration: 30 day, Stop date: 08/21/17 10:22:00 [employer] Notes: (Same as: [place], Deep Sea Nasal Dennis). Start Date: 07/22/17 Stop Date: 07/23/17 Status: Discontinued Seneca Saline Nasal 0.65% solution 2 drp, NASAL, PRN, 0 Refill(s) Start Date: 07/21/17 Status: Ordered azithromycin + sodium chloride 0.9% INJ 250 mL 500 mg, Route: IVPB, ONCE, Dosing Weight 49.545, kg, Priority: STAT, Start date: 07/20/17 14:32:00 [employer], Duration: 1 doses or times, Stop date: 07/20/17 14:32:00 [employer], ABX Indication: Pneumonia Notes: (Same As: Zithromax IV) Start Date: 07/20/17 Stop Date: 07/20/17 Status: Discontinued azithromycin + sodium chloride 0.9% INJ 250 mL 500 mg, Route: IVPB, [id number], Dosing Weight 49.545, kg, Start date: 07/21/17 19: 00:00 [employer], Duration: 3 day, Stop date: 07/23/17 19:00:00 [employer], ABX Indication: No n-PNA Respiratory Tract Infection Notes: (Same As: Zithromax IV) Start Date: 07/21/17 Stop Date: 07/23/17 Status: Discontinued Benadryl 25 mg, Route: IVP, ONCE, Dosing Weight 49.545, kg, PRN Itching, Start date: 03/29 19:24:00 [employer] Start Date: 07/20/17 Stop Date: 07/20/17 Status: Completed Benadryl 25 mg, 1 cap, Route: PO, Drug form: CAP, Q6H, Dosing Weight 49.545, kg, PRN as n eeded for allergy symptoms, Start date: 07/20/17 18:03:00 [employer], Duration: 30 day, Stop date: 08/19/17 18:02:00 [employer] Notes: (Same as: Benadryl) Start Date: 07/20/17 Stop Date: 07/23/17 Status: Discontinued calcium gluconate + sodium chloride 0.9% INJ 100 mL 2 gm, 20 mL, Route: IVPB, PRN, Dosing Weight 49.545, kg, PRN Abnormal Lab Result , For NON-ICU Patients Only., Start date: 07/20/17 19:44:00 [employer], Duration: 30 da y, Stop date: 08/19/17 19:43:00 [employer] Notes: WASTE: F/P - Sink; E - Municipal Trash Bin Start Date: 07/20/17 Stop Date: 07/23/17 Status: Discontinued calcium gluconate + sodium chloride 0.9% INJ 100 mL 3 gm, 30 mL, Route: IVPB, PRN, Dosing Weight 49.545, kg, PRN Abnormal Lab Result , For NON-ICU Patients Only., Start date: 07/20/17 19:44:00 [employer], Duration: 30 da y, Stop date: 08/19/17 19:43:00 [employer] Notes: WASTE: F/P - Sink; E - Municipal Trash Bin Start Date: 07/20/17 Stop Date: 07/23/17 Status: Discontinued cefTRIAXone 1 gm, Route: IVPB, [id number], Dosing Weight 49.545, kg, Start date: 07/20/17 19:00 :00 [employer], Duration: 5 day, Stop date: 07/24/17 19:00:00 [employer], ABX Indication: Non- PNA Respiratory Tract Infection Start Date: 07/20/17 Stop Date: 07/20/17 Status: Deleted cefTRIAXone + water for INJection, sterile 10 mL 1 gm, Route: IV, ONCE, Start date: 07/20/17 15:41:00 [employer], Stop date: 07/20/17 15 :41:00 [employer], ABX Indication: Pneumonia Notes: (Same As: Rocephin).Use with 100 mL NS and infuse over 30 min MEDICA TION WASTE Product Size: 1000 mgProduct Wasted: ___ mg Start Date: 07/20/17 Stop Date: 07/20/17 Status: Discontinued cefTRIAXone + water for INJection, sterile 10 mL 1 gm, Route: IVP, Q24H, Start date: 07/21/17 16:00:00 [employer], Duration: 30 doses or times, Stop date: 08/19/17 16:00:00 [employer], ABX Indication: Non-PNA Respiratory Tr act Infection Notes: (Same As: Rocephin).Use with 100 mL NS and infuse over 30 min MEDICA TION WASTE Product Size: 1000 mgProduct Wasted: ___ mg Start Date: 07/21/17 Stop Date: 07/23/17 Status: Discontinued Citracal + D 315 mg-250 intl units oral tablet 2 tab, Route: PO, Drug Form: TAB, Dosing Weight 49.545, kg, BID, Start date: 05/30 17:00:00 [employer], Duration: 30 day, Stop date: 08/21/17 9:00:00 [employer] Notes: Non-Formulary Medication(Same As: Citracal Caplets Plus D) Start Date: 07/22/17 Stop Date: 07/23/17 Status: Discontinued codeine-guaiFENesin 10 mg-100 mg/5 mL oral syrup 10 mL, Route: PO, Drug Form: SYRP, Dosing Weight 49.545, kg, Q4H, PRN Cough, Sta rt date: 07/20/17 19:44:00 [employer], Duration: 30 day, Stop date: 08/19/17 19:43:[address] Notes: (Same As: Precious AC) Start Date: 07/20/17 Stop Date: 07/23/17 Status: Discontinued Colace 100 mg oral capsule 100 mg, 1 cap, Route: PO, Drug form: CAP, BID, Dosing Weight 49.545, kg, Start d ate: 07/22/17 17:00:00 [employer], Duration: 30 day, Stop date: 08/21/17 9:00:00 [employer] Notes: (Same as: Colace) (Do Not Crush) Start Date: 07/22/17 Stop Date: 07/23/17 Status: Discontinued diphenhydrAMINE 25 mg, 1 cap, Route: PO, Drug form: CAP, Q6H, Dosing Weight 49.545, kg, PRN Itch ing, Start date: 07/20/17 19:44:00 [employer], Duration: 30 day, Stop date: 08/19/17 19 :43:00 [employer] Notes: (Same as: Benadryl) Start Date: 07/20/17 Stop Date: 07/23/17 Status: Discontinued enoxaparin 30 mg, Route: SUB-Q, Drug form: INJ, [id number], Dosing Weight 49.545, kg, Start d ate: 07/20/17 19:00:00 [employer], Duration: 30 day, Stop date: 08/19/17 7:00:00 [employer] Start Date: 07/20/17 Stop Date: 07/20/17 Status: Canceled enoxaparin 30 mg, 0.3 mL, Route: SUB-Q, Drug form: INJ, Daily, Dosing Weight 49.545, kg, St art date: 07/21/17 9:00:00 [employer], Duration: 30 day, Stop date: 08/19/17 9:00:00 CS T Notes: (Same as: Lovenox) Start Date: 07/21/17 Stop Date: 07/23/17 Status: Discontinued fluticasone nasal 0.05 mg/inh spray 1 spray, Route: NASAL, Drug Form: SPRY, Dosing Weight 49.545, kg, PRN, PRN Aller gies, Start date: 07/22/17 10:21:00 [employer], Duration: 30 day, Stop date: 08/21/17 1 0:20:00 [employer] Notes: (Same as: Flonase) Start Date: 07/22/17 Stop Date: 07/23/17 Status: Discontinued gabapentin 300 mg oral capsule 300 mg = 1 cap, PO, Bedtime, 0 Refill(s) Start Date: 07/21/17 Status: Ordered gabapentin 300 mg oral capsule 300 mg, 1 cap, Route: PO, Drug form: CAP, Bedtime, Dosing Weight 49.545, kg, Sta rt date: 07/22/17 21:00:00 [employer], Duration: 30 day, Stop date: 08/20/17 21:00:[address] Notes: (Same as: Neurontin) Start Date: 07/22/17 Stop Date: 07/23/17 Status: Discontinued hydrALAZINE 10 mg, 0.5 mL, Route: IVP, Drug form: INJ, Q6H, Dosing Weight 49.545, kg, PRN Hy pertension, Start date: 07/20/17 19:33:00 [employer], Duration: 30 day, Stop date: 03/29 19:32:00 [employer] Notes: (Same as: Apresoline)Push over 5 minutes Start Date: 07/20/17 Stop Date: 07/23/17 Status: Discontinued ipratropium 0.02% inhalation solution 0.5 mg, NEB, Q6H, PRN wheezing, # 120 ea, 0 Refill(s) Start Date: 07/23/17 Stop Date: 08/22/17 Status: Ordered ipratropium 0.02% inhalation solution 0.5 mg, 2.5 mL, Route: INHALATION, Drug form: SOLN, [id number], Dosing Weight 49.545 , kg, Priority: NOW, Start date: 07/20/17 18:15:00 [employer], Duration: 30 day, Stop d ate: 08/19/17 12:15:00 [employer] Notes: SEE RT DOCUMENTATION(Same as:Atrovent) Start Date: 07/20/17 Stop Date: 07/23/17 Status: Discontinued ipratropium 0.02% inhalation solution 0.5 mg, NEB, Q6H, PRN wheezing, # 120 ea, 0 Refill(s), Pharmacy: [facility] [id number] Start Date: 07/23/17 Stop Date: 07/23/17 Status: Discontinued lactobacillus acidophilus 1 cap, Route: PO, Drug Form: CAP, Dosing Weight 49.545, kg, Daily, Start date: 09/22/16 9:00:00 [employer], Duration: 30 day, Stop date: 08/21/17 9:00:00 [employer] Start Date: 07/23/17 Stop Date: 07/22/17 Status: Deleted lactobacillus rhamnosus GG 1 cap, Route: PO, Drug Form: CAP, Daily, Start date: 07/23/17 9:00:00 [employer], Durat ion: 30 day, Stop date: 08/21/17 9:00:00 [employer] Notes: Same as Culturelle Start Date: 07/23/17 Stop Date: 07/23/17 Status: Discontinued lactulose 10 g/15 mL oral syrup 20 gm, 30 mL, Route: PO, Drug form: SYRP, Q8H, Dosing Weight 49.545, kg, PRN Con stipation, Start date: 07/22/17 10:21:00 [employer], Duration: 30 day, Stop date: 08/21 10:20:00 [employer] Notes: (Same as:Chronulac) Start Date: 07/22/17 Stop Date: 07/23/17 Status: Discontinued Levaquin 750 mg, 150 mL, Route: IVPB, Drug form: SOLN, ONCE, Dosing Weight 49.545, kg, St art date: 07/20/17 16:37:00 [employer], Duration: 1 doses or times, Stop date: 07/20/17 16:37:00 [employer], ABX Indication: Pneumonia Notes: (Same as:Levaquin) Start Date: 07/20/17 Stop Date: 07/20/17 Status: Completed levofloxacin 500 mg oral tablet 500 mg = 1 tab, PO, Daily, # 7 tab, 0 Refill(s) Start Date: 07/21/17 Stop Date: 07/28/17 Status: Ordered levothyroxine 75 microgram, 1 tab, Route: PO, Drug form: TAB, Before Breakfast, Dosing Weight 49.545, kg, Start date: 07/23/17 7:30:00 [employer], Duration: 30 day, Stop date: 08/21 7:30:00 [employer] Notes: Take 1 hour before or 2 hours after meal; Enteral feeds may interefere wi th the absorption of this medication. (Same as:Synthroid, Levothroid) Start Date: 07/23/17 Stop Date: 07/23/17 Status: Discontinued magnesium oxide 800 mg, 2 tab, Route: PO, Drug form: TAB, PRN, Dosing Weight 49.545, kg, PRN Abn ormal Lab Result, For NON-ICU Patients Only., Start date: 07/20/17 19:44:00 [employer], Duration: 30 day, Stop date: 08/19/17 19:43:00 [employer] Notes: (Same as: Mag-Ox 400)Magnesium oxide [id number] elemental magnesiumDose= ____mg magnesium oxide (___mg elemental magnesium) Start Date: 07/20/17 Stop Date: 07/23/17 Status: Discontinued magnesium sulfate 1 gm, 100 mL, Route: IVPB, Drug form: INJ, PRN, Dosing Weight 49.545, kg, PRN Ab normal Lab Result, For NON-ICU Patients Only., Start date: 07/20/17 19:44:00 [employer] , Duration: 30 day, Stop date: 08/19/17 19:43:00 [employer] Notes: WASTE: F/P - Sink; E - Municipal Trash Bin Start Date: 07/20/17 Stop Date: 07/23/17 Status: Discontinued magnesium sulfate 2 gm, 50 mL, Route: IVPB, Drug form: INJ, PRN, Dosing Weight 49.545, kg, PRN Abn ormal Lab Result, For NON-ICU Patients Only., Start date: 07/20/17 19:44:00 [employer], Duration: 30 day, Stop date: 08/19/17 19:43:00 [employer] Notes: WASTE: F/P - Sink; E - Municipal Trash Bin Start Date: 07/20/17 Stop Date: 07/23/17 Status: Discontinued methylPREDNISolone SODium SUCCinate 40 mg, 1 mL, Route: IVP, Drug form: INJ, Daily, Dosing Weight 49.545, kg, Start date: 07/23/17 9:00:00 [employer], Duration: 30 day, Stop date: 08/21/17 9:00:00 [employer] Notes: (Same as:Solu-MEDROL, A-Methapred) Start Date: 07/23/17 Stop Date: 07/23/17 Status: Discontinued methylPREDNISolone SODium SUCCinate 40 mg, 1 mL, Route: IVP, Drug form: INJ, Q8H, Dosing Weight 49.545, kg, Start da te: 07/21/17 0:00:00 [employer], Duration: 30 day, Stop date: 08/19/17 16:00:00 [employer] Notes: (Same as:Solu-MEDROL, A-Methapred) Start Date: 07/21/17 Stop Date: 07/22/17 Status: Discontinued Milk of Magnesia 30 mL, Route: PO, Drug Form: SUSP, Dosing Weight 49.545, kg, Q3H, PRN Constipati on, Start date: 07/20/17 19:44:00 [employer], Duration: 2 doses or times, Stop date: Tiffany conner # of times Notes: (Same as: Milk of Magnesia, MOM) Start Date: 07/20/17 Stop Date: 07/23/17 Status: Discontinued morphine Sulfate 2 mg, 0.5 mL, Route: IVP, Drug form: INJ, Q4H, Dosing Weight 49.545, kg, PRN Juaquin n Score 7-10, Start date: 07/20/17 18:52:00 [employer], Duration: 30 day, Stop date: 18:51:00 [employer] Notes: (Same as:MORPhine Sulfate) Start Date: 07/20/17 Stop Date: 07/23/17 Status: Discontinued multivitamin 1 tab, Route: PO, Drug Form: TAB, Dosing Weight 49.545, kg, Daily, Start date: 09/22/16 9:00:00 [employer], Duration: 30 day, Stop date: 08/21/17 9:00:00 [employer] Notes: (Same as:One Tab Daily, Tab-A-Nadir + Beta Carotene) Give with food. Start Date: 07/23/17 Stop Date: 07/23/17 Status: Discontinued omeprazole 20 mg oral delayed release capsule 20 mg = 1 cap, PO, Daily, # 30 cap, 0 Refill(s) Start Date: 07/21/17 Stop Date: 08/20/17 Status: Ordered ondansetron 4 mg, 2 mL, Route: IVP, Drug form: INJ, Q6H, Dosing Weight 49.545, kg, PRN Nause a & Vomiting, Start date: 07/20/17 18:52:00 [employer], Duration: 30 day, Stop date: 08/19/17 18:51:00 [employer] Notes: (Same as: Calixto) MEDICATION WASTE Product Size: 4 mgProduct Was bradly: ___ mg Start Date: 07/20/17 Stop Date: 07/23/17 Status: Discontinued potassium chloride 20 mEq, 1 tab, Route: PO, Drug form: ERTAB, PRN, Dosing Weight 49.545, kg, PRN A bnormal Lab Result, For NON-ICU Patients Only, Start date: 07/20/17 19:44:00 [employer] , Duration: 30 day, Stop date: 08/19/17 19:43:00 [employer] Notes: (Same as: K-Dur 20)"Do Not Crush" With food and full glass of water Start Date: 07/20/17 Stop Date: 07/23/17 Status: Discontinued potassium chloride 10 mEq, 100 mL, Route: IVPB, Drug form: INJ, PRN, Dosing Weight 49.545, kg, PRN Abnormal Lab Result, For NON-ICU Patients Only, Start date: 07/20/17 19:44:00 CS T, Duration: 30 day, Stop date: 08/19/17 19:43:00 [employer] Notes: Infuse at a rate of 10 mEq/hr.(Same as: KCL) Start Date: 07/20/17 Stop Date: 07/23/17 Status: Discontinued potassium chloride 20 mEq, 15 mL, Route: NJ, Drug form: LIQ, PRN, Dosing Weight 49.545, kg, PRN Abn ormal Lab Result, For NON-ICU Patients Only, Start date: 07/20/17 19:44:00 [employer], Duration: 30 day, Stop date: 08/19/17 19:43:00 [employer] Notes: (Same as: Potassium Chloride) Start Date: 07/20/17 Stop Date: 07/23/17 Status: Discontinued potassium phosphate + sodium chloride 0.9% INJ 250 mL 30 mmol, 10 mL, Route: IVPB, PRN, Dosing Weight 49.545, kg, PRN Abnormal Lab Res ult, For NON-ICU Patients Only., Start date: 07/20/17 19:44:00 [employer], Duration: 30 day, Stop date: 08/19/17 19:43:00 [employer] Notes: (Same as: K Phosphate.) 1 mMol phoshate has 1.47 mEq potassium Infuse o yady 4 hours Start Date: 07/20/17 Stop Date: 07/23/17 Status: Discontinued potassium phosphate + sodium chloride 0.9% INJ 250 mL 15 mmol, 5 mL, Route: IVPB, PRN, Dosing Weight 49.545, kg, PRN Abnormal Lab Resu lt, For NON-ICU Patients Only., Start date: 07/20/17 19:44:00 [employer], Duration: 30 day, Stop date: 08/19/17 19:43:00 [employer] Notes: (Same as: K Phosphate.) 1 mMol phoshate has 1.47 mEq potassium Infuse o yady 4 hours Start Date: 07/20/17 Stop Date: 07/23/17 Status: Discontinued potassium phosphate-sodium phosphate 250 mg-280 mg-160 mg oral powder for recons titution 2 pkt, Route: PO, Drug Form: PDR/REC, Dosing Weight 49.545, kg, PRN, PRN Abnorma l Lab Result, For NON-ICU Patients Only, Start date: 07/20/17 19:44:00 [employer], Dura tion: 30 day, Stop date: 08/19/17 19:43:00 [employer] Notes: (Same as: Phos-NaK) Each 1.5 gm pkt has 250mg phosphorous. Mix w/2.5oz w ater and stir. Start Date: 07/20/17 Stop Date: 07/23/17 Status: Discontinued predniSONE 10 mg oral tablet 10 mg = 1 tab, PO, Daily, take 3 tab daily x3, 2 tab daily x2, 1 tab daily x2, t hen dc., 0 Refill(s) Start Date: 07/21/17 Status: Ordered promethazine 25 mg oral tablet 25 mg = 1 tab, PO, Q4H, PRN Nausea/Vomiting, # 15 tab, 0 Refill(s) Start Date: 07/21/17 Stop Date: 07/24/17 Status: Ordered Protonix 40 mg, 1 tab, Route: PO, Drug form: ECTAB, Before Dinner, Dosing Weight 49.545, kg, Start date: 07/21/17 20:30:00 [employer], Duration: 30 day, Stop date: 08/20/17 16: 30:00 [employer] Notes: Tablet should not be chewed or crushed.(Same as: Protonix) Start Date: 07/21/17 Stop Date: 07/23/17 Status: Discontinued Rocephin 1 gm, Route: IVPB, Drug form: PDR/INJ, ONCE, Dosing Weight 49.545, kg, Priority: STAT, Start date: 07/20/17 14:32:00 [employer], Duration: 1 doses or times, Stop date: 07/20/17 14:32:00 [employer], ABX Indication: Pneumonia Start Date: 07/20/17 Stop Date: 07/20/17 Status: Voided With Results Saline Flush 0.9% 10 mL, Route: IVP, Drug Form: INJ, Dosing Weight 49.545, kg, PRN, PRN Line Flush , Start date: 07/20/17 12:58:00 [employer], Duration: 30 day, Stop date: 08/19/17 12:57 :00 [employer] Notes: Same as: BD Posiflush Sterile Start Date: 07/20/17 Stop Date: 07/23/17 Status: Discontinued Saline Flush 0.9% 10 ml, Route: IVP, Drug Form: INJ, Dosing Weight 49.545, kg, PRN, PRN Line Flush , Start date: 07/20/17 18:05:00 [employer], Duration: 30 day, Stop date: 08/19/17 18:04 :00 [employer] Notes: Same as: BD Posiflush Sterile Start Date: 07/20/17 Stop Date: 07/21/17 Status: Deleted simvastatin 20 mg, 1 tab, Route: PO, Drug form: TAB, Bedtime, Dosing Weight 49.545, kg, Star t date: 07/21/17 21:00:00 [employer], Duration: 30 day, Stop date: 08/19/17 21:00:00 CS T Notes: (Same as: Zocor) Start Date: 07/21/17 Stop Date: 07/23/17 Status: Discontinued sodium chloride 0.9% 1000 ml INJ 1,000 mL 1,000 mL, Rate: 50 ml/hr, Infuse over: 20 hr, Route: IV, Dosing Weight 49.545 kg , Total Volume: 1,000, Start date: 07/21/17 13:44:00 [employer], Duration: 30 day, Stop date: 08/20/17 13:43:00 [employer] Start Date: 07/21/17 Stop Date: 07/22/17 Status: Discontinued sodium chloride 0.9% 1000 ml INJ 1,000 mL 1,000 mL, Rate: 100 ml/hr, Infuse over: 10 hr, Route: IV, Dosing Weight 49.545 k g, Total Volume: 1,000, Start date: 07/20/17 17:22:00 [employer], Duration: 30 day, Sto p date: 08/19/17 17:21:00 [employer] Start Date: 07/20/17 Stop Date: 07/21/17 Status: Discontinued sodium phosphate + sodium chloride 0.9% INJ 250 mL 30 mmol, 10 mL, Route: IVPB, PRN, Dosing Weight 49.545, kg, PRN Abnormal Lab Res ult, For NON-ICU Patients Only., Start date: 07/20/17 19:44:00 [employer], Duration: 30 day, Stop date: 08/19/17 19:43:00 [employer] Start Date: 07/20/17 Stop Date: 07/23/17 Status: Discontinued sodium phosphate + sodium chloride 0.9% INJ 250 mL 15 mmol, 5 mL, Route: IVPB, PRN, Dosing Weight 49.545, kg, PRN Abnormal Lab Resu lt, For NON-ICU Patients Only., Start date: 07/20/17 19:44:00 [employer], Duration: 30 day, Stop date: 08/19/17 19:43:00 [employer] Start Date: 07/20/17 Stop Date: 07/23/17 Status: Discontinued Solu-MEDROL 125 mg, 2 mL, Route: IVP, Drug form: INJ, ONCE, Dosing Weight 49.545, kg, Priori ty: STAT, Start date: 07/20/17 16:38:00 [employer], Stop date: 07/20/17 16:38:00 [employer] Notes: (Same as:Solu-MEDROL, A-Methapred) Start Date: 07/20/17 Stop Date: 07/20/17 Status: Completed Spiriva 18 mcg inhalation capsule 18 microgram, 1 inhalation, Route: INHALER, Drug form: CAP, Daily, Dosing Weight 49.545, kg, Start date: 07/22/17 9:00:00 [employer], Duration: 30 day, Stop date: 04/29 9:00:00 [employer] Notes: (Same As: Spiriva) Start Date: 07/22/17 Stop Date: 07/23/17 Status: Discontinued Symbicort 160/4.5 inhalation aerosol with adapter 2 puff, Route: INHALATION, Drug Form: AERO/A, Dosing Weight 49.545, kg, BID, NOW , Start date: 07/20/17 18:02:00 [employer], Duration: 30 day, Stop date: 08/19/17 17:00 :00 [employer] Notes: (Same as: Symbicort)WASTE: Aerosol - Return to Pharmacy Start Date: 07/20/17 Stop Date: 07/21/17 Status: Discontinued trazodone 50 mg, 1 tab, Route: PO, Drug form: TAB, Bedtime, Dosing Weight 49.545, kg, PRN Sleep, Start date: 07/20/17 19:44:00 [employer], Duration: 30 day, Stop date: 08/19/17 19:43:00 [employer], .. Notes: (Same As: Desyrel) Start Date: 07/20/17 Stop Date: 07/23/17 Status: Discontinued valsartan 320 mg, 2 tab, Route: PO, Drug form: TAB, Daily, Dosing Weight 49.545, kg, Start date: 07/23/17 9:00:00 [employer], Duration: 30 day, Stop date: 08/21/17 9:00:00 [employer] Notes: Same as Emilie Start Date: 07/23/17 Stop Date: 07/23/17 Status: Discontinued valsartan 240 mg, 3 tab, Route: PO, Drug form: TAB, ONCE, Start date: 07/22/17 18:15:00 CS T, Stop date: 07/22/17 18:15:00 [employer] Notes: Same as Emilie ----order reentered-- Start Date: 07/22/17 Stop Date: 07/22/17 Status: Completed valsartan 240 mg, 3 tab, Route: PO, Drug form: TAB, ONCE, Start date: 07/22/17 17:00:00 CS T, Stop date: 07/22/17 17:00:00 [employer] Notes: Same as Emilie ----MD asked us to DC VAlsartan 80mg BID order Start Date: 07/22/17 Stop Date: 07/22/17 Status: Voided With Results valsartan 80 mg, 1 tab, Route: PO, Drug form: TAB, BID, Dosing Weight 49.545, kg, Start da te: 07/21/17 10:10:00 [employer], Duration: 30 day, Stop date: 08/20/17 9:00:00 [employer] Notes: Same as Emilie Start Date: 07/21/17 Stop Date: 07/22/17 Status: Voided With Results valsartan 320 mg oral tablet 320 mg = 1 tab, PO, Daily, # 30 tab, 0 Refill(s) Start Date: 07/21/17 Status: Ordered Ventolin HFA 90 mcg/inh inhalation aerosol with adapter 180 microgram = 2 puff, INHALATION, QID, NEEDED, # 1 ea, 0 Refill(s) Start Date: 07/23/17 Stop Date: 08/22/17 Status: Ordered Vitamin C 1,000 mg, 2 tab, Route: PO, Drug form: TAB, Daily, Dosing Weight 49.545, kg, Sta rt date: 07/23/17 9:00:00 [employer], Duration: 30 day, Stop date: 08/21/17 9:00:00 [employer] Notes: (Same as: Vitamin C) Start Date: 07/23/17 Stop Date: 07/23/17 Status: Discontinued Xopenex 0.63 mg, 3 mL, Route: NEB, Drug form: SOLN, Q8H, Dosing Weight 49.545, kg, PRN W mariangel, Start date: 07/22/17 10:22:00 [employer], Duration: 30 day, Stop date: 7 10:21:00 [employer] Start Date: 07/22/17 Stop Date: 07/22/17 Status: Deleted Xopenex 0.63 mg, 3 mL, Route: NEB, Drug form: SOLN, RQ6H, Start date: 07/20/17 20:00:00 [employer], Duration: 30 day, Stop date: 08/19/17 14:00:00 [employer] Notes: SEE RT DOCUMENTATION (Same as:Xopenex)Non-Formulary Start Date: 07/20/17 Stop Date: 07/23/17 Status: Discontinued Xopenex 0.63 mg, Route: INHALATION, ABXQ6H, Dosing Weight 49.545, kg, Start date: 19:00:00 [employer], Duration: 30 day, Stop date: 08/19/17 13:00:00 [employer] Start Date: 07/20/17 Stop Date: 07/20/17 Status: Deleted Results ELECTROLYTES 1 2 3 Most recent to oldest [Reference Range]: 136 mEq/L (07/22/17 4:25 AM) 134 mEq/L *LOW* (07/21/17 4:32 AM) 129 mEq/L *LOW* (07/20/17 4:46 PM) Sodium Lvl [135-145 mEq/L] 3.8 mEq/L (07/22/17 4:25 AM) 4.1 mEq/L (07/21/17 4:32 AM) 4.0 mEq/L (07/20/17 4:46 PM) Potassium Lvl [3.5-5.1 mEq/L] 106 mEq/L (07/22/17 4:25 AM) 102 mEq/L (07/21/17 4:32 AM) 96 mEq/L (07/20/17 4:46 PM) Chloride Lvl [95-109 mEq/L] 21 mEq/L *LOW* (07/22/17 4:25 AM) 22 mEq/L *LOW* (07/21/17 4:32 AM) 22 mEq/L *LOW* (07/20/17 4:46 PM) CO2 [24-32 mEq/L] 12.8 mEq/L (07/22/17 4:25 AM) 14.1 mEq/L (07/21/17 4:32 AM) 15.0 mEq/L (07/20/17 4:46 PM) AGAP [10.0-20.0 mEq/L] CHEM PANEL 1 2 3 Most recent to oldest [Reference Range]: 0.40 mg/dL *LOW* (07/22/17 4:25 AM) 0.47 mg/dL *LOW* (07/21/17 4:32 AM) 0.61 mg/dL (07/20/17 4:46 PM) Creatinine Lvl [0.50-1.40 mg/dL] 105 mL/min/1.73m2 1 *NA* (07/22/17 4:25 AM) 99 mL/min/1.73m2 2 *NA* (07/21/17 4:32 AM) 91 mL/min/1.73m2 3 *NA* (07/20/17 4:46 PM) eGFR 15 mg/dL (07/22/17 4:25 AM) 9 mg/dL (07/21/17 4:32 AM) 7 mg/dL (07/20/17 4:46 PM) BUN [7-22 mg/dL] 19 (07/21/17 4:32 AM) 11 (07/20/17 4:46 PM) B/C Ratio [6-25] 139 mg/dL *HI* (07/22/17 4:25 AM) 159 mg/dL *HI* (07/21/17 4:32 AM) 156 mg/dL *HI* (07/20/17 4:46 PM) Glucose Lvl [70-99 mg/dL] 6.5 g/dL (07/21/17 4:32 AM) 7.0 g/dL (07/20/17 4:46 PM) Total Protein [6.4-8.4 g/dL] 3.3 g/dL *LOW* (07/21/17 4:32 AM) 3.5 g/dL (07/20/17 4:46 PM) Albumin Lvl [3.5-5.0 g/dL] 3.2 g/dL (07/21/17 4:32 AM) 3.5 g/dL (07/20/17 4:46 PM) Globulin [2.7-4.2 g/dL] 1.0 (07/21/17 4:32 AM) 1.0 (07/20/17 4:46 PM) A/G Ratio [0.7-1.6] 7.9 mg/dL *LOW* (07/22/17 4:25 AM) 8.3 mg/dL *LOW* (07/21/17 4:32 AM) 8.9 mg/dL (07/20/17 4:46 PM) Calcium Lvl [8.5-10.5 mg/dL] 2.1 mg/dL (07/21/17 4:32 AM) Magnesium Lvl [1.8-2.4 mg/dL] 21 unit/L (07/21/17 4:32 AM) 25 unit/L (07/20/17 4:46 PM) ALT [0-65 unit/L] 21 unit/L (07/21/17 4:32 AM) 35 unit/L (07/20/17 4:46 PM) AST [0-37 unit/L] 62 unit/L (07/21/17 4:32 AM) 67 unit/L (07/20/17 4:46 PM) Alk Phos [39-136 unit/L] 0.5 mg/dL (07/21/17 4:32 AM) 0.3 mg/dL (07/20/17 4:46 PM) Bili Total [0.2-1.3 mg/dL] 1.5 mMol/L (07/20/17 2:31 PM) Lactic Acid Lvl [0.5-2.2 mMol/L] 274 mOsm/kg *LOW* (07/20/17 8: PM) Osmolality [280-300 mOsm/kg] 1Result Comment: The eGFR is calculated using the [...] from the National Kidney Disease Education Program ( NKDEP) which additionally recommends that when the eGFR is used in patients with extremes of body mass index for purposes of drug dosing, the eGFR should be mul tiplied by the estimated BMI. 2Result Comment: The eGFR is calculated using the [...] from the National Kidney Disease Education Program ( NKDEP) which additionally recommends that when the eGFR is used in patients with extremes of body mass index for purposes of drug dosing, the eGFR should be mul tiplied by the estimated BMI. 3Result Comment: The eGFR is calculated using the [...] from the National Kidney Disease Education Program ( NKDEP) which additionally recommends that when the eGFR is used in patients with extremes of body mass index for purposes of drug dosing, the eGFR should be mul tiplied by the estimated BMI. CARDIAC ENZYMES 1 2 3 Most recent to oldest [Reference Range]: 136 unit/L (07/20/17 8:17 PM) 141 unit/L (07/20/17 4:46 PM) Total CK [12-191 unit/L] 1.2 ng/mL (07/20/17 4:46 PM) CK MB [0.5-3.6 ng/mL] 0.9 (07/20/17 4:46 PM) CK MB Index [0.0-2.5] <0.02 ng/mL (07/20/17 8:17 PM) <0.02 ng/mL (07/20/17 4:46 PM) Troponin-I [0.00-0.40 ng/mL] 118 pg/mL *HI* (07/21/17 4:32 AM) 128 pg/mL *HI* (07/20/17 8:17 PM) BNP [<=100 pg/mL] URINE CHEM 1 2 3 Most recent to oldest [Reference Range]: 16 mEq/L *NA* (07/20/17 9:45 PM) U Sodium 438 mOsm/kg (07/20/17 9:45 PM) U Osmolality [300-800 mOsm/kg] HEMATOLOGY 1 2 3 Most recent to oldest [Reference Range]: 6.5 K/CMM (07/22/17 4:25 AM) 4.1 K/CMM (07/21/17 5:12 PM) 1.6 K/CMM *LOW* (07/21/17 4:32 AM) WBC [3.7-10.4 K/CMM] 3.83 M/CMM *LOW* (07/22/17 4:25 AM) 3.99 M/CMM *LOW* (07/21/17 5:12 PM) 4.18 M/CMM *LOW* (07/21/17 4:32 AM) RBC [4.20-5.40 M/CMM] 10.9 g/dL *LOW* (07/22/17 4:25 AM) 11.5 g/dL *LOW* (07/21/17 5:12 PM) 11.7 g/dL *LOW* (07/21/17 4:32 AM) Hgb [12.0-16.0 g/dL] 32.0 % *LOW* (07/22/17 4:25 AM) 33.3 % *LOW* (07/21/17 5:12 PM) 34.5 % *LOW* (07/21/17 4:32 AM) Hct [36.0-48.0 %] 83.5 fL (07/22/17 4:25 AM) 83.4 fL (07/21/17 5:12 PM) 82.6 fL (07/21/17 4:32 AM) MCV [80.0-98.0 fL] 28.5 pg (07/22/17 4:25 AM) 28.7 pg (07/21/17 5:12 PM) 28.1 pg (07/21/17:32 AM) MCH [27.0-31.0 pg] 34.1 g/dL (07/22/17 4:25 AM) 34.4 g/dL (07/21/17 5:12 PM) 34.0 g/dL (07/21/17 4:32 AM) MCHC [32.0-36.0 g/dL] 13.4 % (07/22/17 4:25 AM) 13.0 % (07/21/17 5:12 PM) 13.0 % (07/21/17 4:32 AM) RDW [11.5-14.5 %] 244 K/CMM (07/22/17 4:25 AM) 259 K/CMM (07/21/17 5:12 PM) 235 K/CMM (07/21/17 4:32 AM) Platelet [133-450 K/CMM] 8.1 fL (07/22/17 4:25 AM) 8.7 fL (07/21/17 5:12 PM) 8.4 fL (07/21/17 4:32 AM) MPV [7.4-10.4 fL] 83.1 % *HI* (07/22/17 4:25 AM) 72.3 % (07/21/17 5:12 PM) 71.4 % (07/21/17 4:32 AM) Segs [45.0-75.0 %] 13.0 % *LOW* (07/22/17 4:25 AM) 21.1 % (07/21/17 5:12 PM) 25.0 % (07/21/17 4:32 AM) Lymphocytes [20.0-40.0 %] 3.9 % (07/22/17 4:25 AM) 6.6 % (07/21/17 5:12 PM) 3.4 % (07/21/17 4:32 AM) Monocytes [2.0-12.0 %] 0.0 % (07/20/17 2:31 PM) Eosinophils [0.0-4.0 %] 0.2 % (07/21/17 4:32 AM) 0.2 % (07/20/17 2:31 PM) Basophils [0.0-1.0 %] 5.4 K/CMM (07/22/17 4:25 AM) 3.0 K/CMM (07/21/17 5:12 PM) 1.1 K/CMM *LOW* (07/21/17 4:32 AM) Segs-Bands # [1.5-8.1 K/CMM] 0.8 K/CMM *LOW* (07/22/17 4:25 AM) 0.9 K/CMM *LOW* (07/21/17 5:12 PM) 0.4 K/CMM *LOW* (07/21/17 4:32 AM) Lymphocytes # [1.0-5.5 K/CMM] 0.2 K/CMM (07/22/17 4:25 AM) 0.3 K/CMM (07/21/17 5:12 PM) 0.1 K/CMM (07/21/17 4:32 AM) Monocytes # [0.0-0.8 K/CMM] 0.0 K/CMM (07/20/17 2:31 PM) Eosinophils # [0.0-0.5 K/CMM] 0.0 K/CMM (07/20/17 2:31 PM) Basophils # [0.0-0.2 K/CMM] MOLECULAR DIAGNOSTIC 1 2 3 Most recent to oldest [Reference Range]: [employer] Swab (07/22/17 6:00 AM) Source Respiratory Panel PCR Negative (07/22/17 6:00 AM) Influenza A PCR [Negative] Negative (07/22/17 6:00 AM) Influenza B PCR [Negative] Negative (07/22/17 6:00 AM) RSV PCR [Negative] Immunizations Given and Recorded Vaccine Date Status Refusal Reason Hx influenza vaccine-unspecified 05/14/17 Given influenza virus vaccine, inactivated 07/02/14 G iven Hx pneumococcal vaccine 11/12/11 Given Procedures Procedure Date Related Diagnosis Body Site Bladder operation Cholecystectomy Hernia repair Hysterectomy Insertion of [id number]-d-ewyn2 1left side. oct 2014 placed Social History [...] years ago, stopped smoking Assessment and Plan Extracted from: Title: Progress Note * Author: Ross Sifuentes MD [...]
--- OUTSIDE RECORDS SUMMARY | 2020-04-14 11:58 | XMS REPORT | Summary of Care ---
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 Immunizations Given and Recorded Vaccine Date Status Refusal Reason Hx pneumococcal vaccine 11/12/11 Given influenza virus vaccine, inactivated 07/02/14 G iven Procedures Procedure Date Related Diagnosis Body Site Bladder operation Cholecystectomy Hernia repair Hysterectomy Insertion of [id number]-x-hfet1 1left side. oct 2014 placed Social History [...]
--- OUTSIDE RECORDS SUMMARY | 2020-04-14 11:58 | XMS REPORT | Summary of Care ---
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 oct 2014 placed Social [...]
--- OUTSIDE RECORDS SUMMARY | 2020-04-14 11:58 | XMS REPORT | Summary of Care ---
Author Author [facility] Organization [facility] Address Unknown Phone Unavailable Encounter TOYIN Mcdowell(ANT) [id number] Date(s): 07/11/19 - 07/11/19 [facility] [address] [place] [address]- [phone] Discharge Disposition: Home or Self Care Attending Physician: Vamsi Crowley MD Vital Signs Most recent to 1 oldest [Reference Range]: Blood Pressure 177/74 mmHg [90-140/60-90 mmHg] *HI* (07/11/19 3:42 PM) Peripheral Pulse 73 bpm Rate [60-100 bpm] (07/11/19 3:42 PM) Problem List Condition Effective Dates Status Health [...] Active syndrome9, 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 3Data migrated from [employer] on 02/11/15. 4Data migrated from [employer] on 02/11/15. 5Data migrated from [employer] [...] Active NKDA Active Food Shrimp Active Medications ciprofloxacin 500 mg oral tablet 500 mg = 1 tab, PO, Q12H, for UTI, X 5 day, # 10 tab, 0 Refill(s), Pharmacy: [id number] Start Date: 07/11/19 Stop Date: 07/16/19 Status: Ordered Results No data available for this section Immunizations Given and Recorded Vaccine Date Status Refusal Reason Hx influenza vaccine-unspecified 05/14/17 Given influenza virus vaccine, inactivated 07/02/14 G iven Hx pneumococcal vaccine 11/12/11 Given Procedures Procedure Date Related Diagnosis Body Site Status Bladder operation Completed Cholecystectomy Completed Hernia repair Completed Hysterectomy Completed Insertion of [id number]-w-[id number] Completed 1left side. oct 2014 placed Social [...]
--- OUTSIDE RECORDS SUMMARY | 2020-04-14 11:58 | XMS REPORT | Summary of Care ---
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 oct 2014 placed Social [...]
--- OUTSIDE RECORDS SUMMARY | 2020-04-14 11:58 | XMS REPORT | CCD ---
Author Author Auto Generated, CECILY SARMIENTO Organization [facility] land Address Unknown Phone Unavailable Care Team Providers Care Algorithm Developer Name Role Phone Rob Winslow CP Allergies, Adverse Reactions, Alerts Substance Reaction Status "RAW SHRIMP" Active NKDA Active Problem List Condition Effective Dates Status Asthma Active Chronic obstructive pulmonary disease Active HTN - Hypertension Active Uterine prolapse Active
--- OUTSIDE RECORDS SUMMARY | 2020-04-14 11:58 | XMS REPORT | CCD ---
Author Author Auto Generated, CECILY SARMIENTO [facility] Address Unknown Phone Unavailable Care Team Providers Care Sugar Reprocess Operator Head Name Role Phone MitzyLefty hannaon RP Allergies, Adverse Reactions, Alerts Substance Reaction Status "RAW SHRIMP" Active NKDA Active Problem List Condition Effective Dates Status Asthma Active Chronic obstructive pulmonary disease Active HTN - Hypertension Active Uterine prolapse Active Vital Signs Most recent to oldest [Reference Range]: 1 Height 167.64 cm (03/01/2013 15:57:00) Weight 57.273 kg (03/01/2013 15:57:00)
--- OUTSIDE RECORDS SUMMARY | 2020-04-14 11:58 | XMS REPORT | CCD ---
Author Author Auto CECILY Mercado 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 Active Problem List Condition Effective Dates Status Uterine prolapse Active Medications Medication Instructions Start Date End Date Status Osteo Bi-Flex 1 tab, PO, Daily, Substitution 04/12/2012 Ordered Allowed, Soft Stop Centrum Silver 1 tab, PO, Substitution Allowed, 04/12/2012 Ordered Women's Soft Stop meperidine 50 mg, 1 mL, Route: IVP, Drug form: 04/15/201212/2011 Discontinued INJ, Q4H, PRN Breakthrough Pain, Start date: 04/15/12 18:00:00, Duration: 4 day, Stop date: 04/19/12 17:59:00 Xopenex 1.25 mg, Route: NEB, ONCE, Start 04/15/20122011 Completed date: 04/15/12 7:17:00, Stop date: 04/15/12 7:17:00 Benadryl 25 mg, 0.5 mL, Route: IVP, Drug 04/15/2012 012 Discontinued form: INJ, ONCE, PRN Itching, Start date: 04/15/12 11:08:00 Protonix 40 mg, 1 tab, Route: PO, Drug form: 04/15/201212/2011 Discontinued ECTAB, Before Dinner, Start date: 04/15/12 16:30:00, Duration: 30 day, Stop date: 05/14/12 16:30:00 Vitamin D3 1000 intl 1,000 IntlUnit, 1 cap, PO, Daily, 2011 Ordered units oral capsule 75 cap, Substitution Allowe d, CAP dexamethasone 4 mg, Route: IVP, Q6H, Start date: 04/15/2012 Discontinued 04/15/12 12:00:00, Duration: 30 day, Stop date: 05/15/12 6:00:00 meperidine 25 mg, 1 mL, Route: IVP, Drug form: 04/15/201212/2011 Discontinued INJ, Q4H, PRN Breakthrough Pain, Start date: 04/15/12 17:58:00, Duration: 4 day, Stop date: 04/19/12 17:57:00 Mucinex 600 mg oral 600 mg, 1 tab, PO, Q12H, PRN, 04/12/2012 Ordered tablet, extended congestion, Substitution Al lowed release azelastine nasal 137 1 spray, NASAL, BID, PRN, as needed 03/15 Ordered mcg/inh spray for allergy symptoms, Subst itution Allowed, Soft Stop Phenergan 12.5 mg, 0.5 mL, Route: IM, Drug 04/15/20122011 Discontinued form: INJ, Q4H, PRN Nausea & Vomiting, Start date: 04/15/12 11:06:00, Duration: 30 day, Stop date: 05/15/12 11:05:00 Mobic 15 mg oral 15 mg, 1 tab, PO, Daily, 30 tab, 04/12/2012 Ordered tablet Substitution Allowed, TAB Zofran 4 mg, 2 mL, Route: IVP, Drug form: 04/15/201212/2011 Discontinued INJ, Q4H, PRN Nausea, Start date: 04/15/12 17:56:00, Duration: 30 day, Stop date: 05/15/12 17:55:00 Restoril 15 mg, 1 cap, Route: PO, Drug form: 04/15/201212/2011 Discontinued CAP, Bedtime, PRN Sleep, Start date: 04/15/12 11:22:00, Duration: 30 day, Stop date: 05/15/12 11:21:00 Detrol LA 4 mg, 1 cap, Route: PO, Drug form: 04/15/201212/2011 Discontinued CAP, Daily, Start date: 04/15/12 20:00:00, Duration: 30 day, Stop date: 05/14/12 20:00:00 belladonna-opium 1 supp, Route: UT, Drug Form: SUPP, 04/15/2012 04/16/2012 Discontinued 16.2 mg-30 mg rectal Q12H, PRN Pain, Start date: suppository 04/15/12 18:23:00, Duration : 30 day, Stop date: 05/15/12 18:22:00 promethazine 12.5 mg, 0.5 mL, Route: IM, Drug 04/15/201204/16 Discontinued form: INJ, Q4H, PRN Nausea & Vomiting, Start date: 04/15/12 11:00:00, Duration: 30 day, Stop date: 05/15/12 10:59:00 docusate 100 mg, 1 cap, Route: PO, Drug 04/15/2012 04/16/20 Discontinued form: CAP, BID, PRN Constipation, Start date: 04/15/12 11:00:00, Duration: 30 day, Stop date: 05/15/12 10:59:00 zolpidem 5 mg, Route: PO, Drug form: TAB, 04/15/20122011 Deleted Bedtime, PRN Insomnia, Start date: 04/15/12 11:00:00, Duration: 30 day, Stop date: 05/15/12 10:59:00 Dextrose 5% in 1,000 mL, Rate: 125 ml/hr, Infuse 04/15/2012 Discontinued Lactated Ringers IV over: 8 hr, Route: IV, Dosi ng 1,000 mL Weight 56.364 kg, Total Vol ume: 1,000, Start date: 04/15/12 11:00:00, Duration: 30 day, Stop date: 05/15/12 10:59:00 acetaminophen-codein 1 tab, Route: PO, Drug Form: TAB, 201104/16/2012 Discontinued e #3 Q4H, PRN Pain Score 1-3, St art date: 04/15/12 11:00:00, Duration: 30 day, Stop date: 05/15/12 10:59:00 cefazolin (SCIP) + 1 gm, Route: IVPB, Q8H, Start date: 201104/16/2012 Completed Sodium Chloride 0.9% 04/16/12 0:00:00, Duration: 2 doses IV 100 mL or times, Stop date: 8:00:00 morphine Sulfate 4 mg, 1 mL, Route: IVP, Drug form: 04/15/2012 04/16/2012 Discontinued INJ, Q3H, PRN Pain Score 4-6, Start date: 04/15/12 11:00:00, Duration: 30 day, Stop date: 05/15/12 10:59:00 ketorolac 15 mg, 0.5 mL, Route: IM, Drug 04/15/2012 04/16/20 Discontinued form: INJ, Q6H, Start date: 04/15/12 18:00:00, Duration: 4 day, Stop date: 04/19/12 12:00:00 morphine Sulfate 6 mg, 1.5 mL, Route: IVP, Drug 04/15/201212/2011 Discontinued form: INJ, Q3H, PRN Pain Score 7-10, Start date: 04/15/12 11:00:00, Duration: 30 day, Stop date: 05/15/12 10:59:00 morphine Sulfate 2 mg, 1 mL, Route: IVP, Drug form: 04/15/2012 04/16/2012 Discontinued INJ, Q3H, PRN Pain Score 1-3, Start date: 04/15/12 11:00:00, Duration: 30 day, Stop date: 05/15/12 10:59:00 acetaminophen-hydroc 2 tab, Route: PO, Drug Form: TAB, 201104/16/2012 Discontinued odone 325 mg-5 mg Q4H, PRN Pain Score 4-6, St art oral tablet date: 04/15/12 11:00:00, Du ration: 30 day, Stop date: 05/15/12 10:59:00 morphine Sulfate 2 mg, 1 mL, Route: IVP, Drug form: 04/15/2012 04/15/2012 Discontinued INJ, Q5Min, PRN Pain Score 4-6, Start date: 04/15/12 10:58:00, Duration: 8 doses or times, Stop date: Limited # of times meperidine 12.5 mg, 0.5 mL, Route: IVP, Drug 04/15/201204/15 Completed form: INJ, Q30Min, PRN Other -See Comment, For shivering, Start date: 04/15/12 10:58:00, Duration: 2 doses or times, Stop date: 04/15/12 18:00:00 flumazenil 0.2 mg, 2 mL, Route: IVP, Drug 04/15/2012 04/15/20 Discontinued form: INJ, PRN, PRN Benzodiazepine Reversal, Initial dose, Start date: 04/15/12 10:58:00, Stop date: 04/15/12 18:00:00 naloxone 0.04 mg, 0.1 mL, Route: IVP, Drug 04/15/201204/15 Discontinued form: INJ, Q2MIN, PRN Narcotic Reversal, Start date: 04/15/12 10:58:00, Duration: 8 doses or times, Stop date: 04/15/12 18:00:00 ondansetron 4 mg, 2 mL, Route: IVP, Drug form: 04/15/2012 0811/2011 Discontinued INJ, ONCE, PRN Nausea & Vomiting, Start date: 04/15/12 10:58:00 Prilosec 20 mg, Route: PO, Drug form: DRC, 04/16/201204/15 Deleted Daily, Start date: 04/16/12 9:00:00, Duration: 30 day, Stop date: 05/15/12 9:00:00 Lactated Ringers 1,000 mL, Rate: 25 ml/hr, Infuse 04/15/2012 0 04/15/2012 Discontinued Injection IV 1,000 over: 40 hr, Route: IV, Dos ing mL Weight 56.364 kg, Total Vol ume: 1,000, Start date: 04/15/12 6:58:00, Duration: 30 day, Stop date: 05/15/12 6:57:00 Synthroid 75 microgram, 1 tab, Route: PO, 04/16/2012 012 Discontinued Drug form: TAB, Before Breakfast, Start date: 04/16/12 7:30:00, Duration: 30 day, Stop date: 05/15/12 7:30:00 naloxone 0.04 mg, 0.1 mL, Route: IVP, Drug 04/15/201204/15 Discontinued form: INJ, Q2MIN, PRN Narcotic Reversal, Start date: 04/15/12 11:12:00, Duration: 8 doses or times, Stop date: 04/15/12 19:00:00 ondansetron 4 mg, 2 mL, Route: IVP, Drug form: 04/15/2012 0811/2011 Discontinued INJ, ONCE, PRN Nausea & Vomiting, Start date: 04/15/12 11:12:00 hydrALAZINE 5 mg, 0.25 mL, Route: IVP, Drug 04/15/2012 012 Discontinued form: INJ, Q5Min, PRN Elevated BP, Start date: 04/15/12 11:12:00, Duration: 4 doses or times, Stop date: Limited # of times flumazenil 0.2 mg, 2 mL, Route: IVP, Drug 04/15/2012 04/15/20 12 Discontinued form: INJ, PRN, PRN Benzodiazepine Reversal, Initial dose, Start date: 04/15/12 11:12:00, Stop date: 04/15/12 19:00:00 Advair Diskus 500 1 inhalation, Route: INHALATION, 04/15/2012 04/16/2012 Discontinued mcg-50 mcg Drug Form: AERO, BID, Start date: inhalation powder 04/15/12 17:00:00, Duration : 30 day, Stop date: 05/15/12 9:00:00 azelastine nasal 1 inhalation, Route: NASAL, Drug 04/15/2012 0 04/16/2012 Discontinued 0.1% (137 mcg/inh) Form: SPRY, BID, PRN as nee ded for spray allergy symptoms, Start june e: 04/15/12 11:02:00, Duration: 30 day, Stop date: 05/15/12 11:01:00 Ventolin HFA 90 2 inhalation, Route: INHALATION, 04/15/2012 Discontinued mcg/inh inhalation Drug Form: AERO/A, QID, PRN as aerosol with adapter needed for wheezing, Start date: 04/15/12 11:02:00, Duration: 30 day, Stop date: 05/15/12 11:01:00 cefazolin + Sodium 1 gm, Route: IVPB, ONCE, Start 04/15/2012 0 04/15/2012 Completed Chloride 0.9% IV 100 date: 04/15/12 16:00:00, St op date: mL 04/15/12 16:00:00 Acidophilus 1 tab, PO, Daily, Substitution 04/12/2012 Ordered Probiotic Blend oral Allowed, Soft Stop capsule Xopenex 0.63 mg/3 mL 0.63 mg, 3 ml, NEB, Q8H, PRN, 24 012 Ordered inhalation solution ea, as needed for wheezing, Substitution Allowed, SOLN Vital Signs Most recent to oldest [Reference Range]: 1 2 3 Height 166.37 cm (04/12/2012 12:42:00) Temperature Oral [96.4-99.1 DegF] 97.5 DegF (04/16/2012 11:00:00) 99.9 DegF *HI* (04/16/2012 06:45:00) 98 DegF (04/16/2012 04:37:00) Systolic Blood Pressure [90-140 mmHg] 144 mmHg *HI* (04/16/2012 11:00:00) 146 mmHg *HI* (04/16/2012 06:45:00) 136 mmHg (04/16/2012 04:37:00) Diastolic Blood Pressure [60-90 mmHg] 86 mmHg (04/16/2012 11:00:00) 81 mmHg (04/16/2012 06:45:00) 73 mmHg (04/16/2012 04:37:00) Respiratory Rate [14-20 BRMIN] 20 BRMIN (04/16/2012 11:00:00) 20 BRMIN (04/16/2012 06:45:00) 18 BRMIN (04/16/2012 04:37:00) Peripheral Pulse Rate [60-100 bpm] 84 bpm (04/16/2012 11:00:00) 100 bpm (04/16/2012 06:45:00) 90 bpm (04/16/2012 04:37:00) Weight 56.364 kg (04/12/2012 12:42:00) Results BEDSIDE GLUCOSE TESTING Most recent to oldest [Reference Range]: 1 2 Gluc POC Lifscn [70-99 mg/dL] 174 mg/dL 1 *HI* (04/15/2012 21:16:00) 1Interpretive Data: Upper Reportable Limit: 200 mg/dL. URINALYSIS Most recent to oldest [Reference Range]: 1 2 UA Turbidity [Clear] Clear (04/12/2012 12:13:00) UA Color [Yellow] Yellow *NA* (04/12/2012 12:13:00) UA pH [5.0-8.0] 6.0 (04/12/2012 12:13:00) UA Spec Grav [<=1.030] >=1.030 *ABN* (04/12/2012 12:13:00) UA Glucose [Negative] Negative (04/12/2012 12:13:00) UA Blood [Negative] Negative (04/12/2012 12:13:00) UA Ketones [Negative] Trace *ABN* (04/12/2012 12:13:00) UA Protein [Negative] Negative (04/12/2012 12:13:00) UA Urobilinogen [0.1-1.0 EU/dL] 0.2 EU/dL (04/12/2012 12:13:00) UA Bili [Negative] Negative *NA* (04/12/2012 12:13:00) UA Leuk Est [Negative] Negative (04/12/2012 12:13:00) UA Nitrite [Negative] Negative (04/12/2012 12:13:00) Micro? Not Indicated (04/12/2012 12:13:00) BLOOD BANK RESULTS Most recent to oldest [Reference Range]: 1 2 ABO/Rh A POS *Unknown* (04/12/2012 12:13:00) Antibody Scrn Negative (04/12/2012 12:13:00) CHEMISTRY Most recent to oldest [Reference Range]: 1 2 Sodium Lvl [135-145 mEq/L] 132 mEq/L *LOW* (04/12/2012 12:13:00) Potassium Lvl [3.5-5.1 mEq/L] 4.5 mEq/L (04/12/2012 12:13:00) Chloride Lvl [95-109 mEq/L] 95 mEq/L (04/12/2012 12:13:00) CO2 [24-32 mEq/L] 29 mEq/L (04/12/2012 12:13:00) AGAP [10.0-20.0 mEq/L] 12.5 mEq/L (04/12/2012 12:13:00) Creatinine Lvl [0.5-1.4 mg/dL] 0.7 mg/dL (04/12/2012 12:13:00) BUN [7-22 mg/dL] 14 mg/dL (04/12/2012 12:13:00) Glucose Lvl [70-99 mg/dL] 88 mg/dL 2 (04/12/2012 12:13:00) Calcium Lvl [8.5-10.5 mg/dL] 9.7 mg/dL (04/12/2012 12:13:00) POC V Source MIKEY *NA* (04/15/2012 10:14:00) POC V Temp 37.0 DegC *NA* (04/15/2012 10:14:00) POC V pH [7.28-7.42] 7.38 (04/15/2012 10:14:00) POC V PCO2 [38-52 mmHg] 43 mmHg (04/15/2012 10:14:00) POC V PO2 [20-49 mmHg] 91 mmHg *HI* (04/15/2012 10:14:00) POC V HCO3 [22-26 mmol/L] 25 mmol/L (04/15/2012 10:14:00) POC V BE [-2-2 mmol/L] 0 mmol/L (04/15/2012 10:14:00) POC V O2 Sat [40.0-70.0 %] 97.0 % *HI* (04/15/2012 10:14:00) POC V Glu [70-99 mg/dL] 103 mg/dL *HI* (04/15/2012 10:14:00) POC V Hct [36.0-48.0 %] 32.0 % *LOW* (04/15/2012 10:14:00) POC V Ion Ca [1.16-1.30 mMol/L] 1.15 mMol/L *LOW* (04/15/2012 10:14:00) POC V K [3.5-5.1 mEq/L] 4.1 mEq/L (04/15/2012 10:14:00) POC V Na [135-145 mEq/L] 129 mEq/L *LOW* (04/15/2012 10:14:00) 2Interpretive Data: Adult reference range values reflect the clinical guidelines of the [employer]. HEMATOLOGY Most recent to oldest [Reference Range]: 1 2 WBC [3.7-10.4 K/CMM] 7.5 K/CMM (04/16/2012 05:30:00) 6.0 K/CMM (04/12/2012 12:13:00) RBC [4.20-5.40 M/CMM] 3.55 M/CMM *LOW* (04/16/2012 05:30:00) 4.66 M/CMM (04/12/2012 12:13:00) Hgb [12.0-16.0 g/dL] 10.6 g/dL *LOW* (04/16/2012 05:30:00) 13.9 g/dL (04/12/2012 12:13:00) Hct [36.0-48.0 %] 30.6 % *LOW* (04/16/2012 05:30:00) 40.6 % (04/12/2012 12:13:00) MCV [81.0-99.0 fL] 86.2 fL (04/16/2012 05:30:00) 87.1 fL (04/12/2012 12:13:00) MCH [27.0-31.0 pg] 29.8 pg (04/16/2012 05:30:00) 29.8 pg (04/12/2012 12:13:00) MCHC [32.0-36.0 g/dL] 34.6 g/dL (04/16/2012 05:30:00) 34.2 g/dL (04/12/2012 12:13:00) RDW [11.5-14.5 %] 12.6 % (04/16/2012 05:30:00) 12.5 % (04/12/2012 12:13:00) Platelet [133-450 K/CMM] 260 K/CMM (04/16/2012 05:30:00) 319 K/CMM (04/12/2012 12:13:00) MPV [7.4-10.4 fL] 8.8 fL (04/16/2012 05:30:00) 8.9 fL (04/12/2012 12:13:00) Segs [45.0-75.0 %] 70.2 % (04/16/2012 05:30:00) 64.6 % (04/12/2012 12:13:00) Lymphocytes [20.0-40.0 %] 18.3 % *LOW* (04/16/2012 05:30:00) 28.7 % (04/12/2012 12:13:00) Monocytes [2.0-12.0 %] 11.0 % (04/16/2012 05:30:00) 5.6 % (04/12/2012 12:13:00) Eosinophils [0.0-4.0 %] 0.2 % (04/16/2012 05:30:00) 0.8 % (04/12/2012 12:13:00) Basophils [0.0-1.0 %] 0.3 % (04/16/2012 05:30:00) 0.3 % (04/12/2012 12:13:00) Segs-Bands # [1.5-8.1 K/CMM] 5.3 K/CMM (04/16/2012 05:30:00) 3.9 K/CMM (04/12/2012 12:13:00) Lymphocytes # [1.0-5.5 K/CMM] 1.4 K/CMM (04/16/2012 05:30:00) 1.7 K/CMM (04/12/2012 12:13:00) Monocytes # [0.0-0.8 K/CMM] 0.8 K/CMM (04/16/2012 05:30:00) 0.3 K/CMM (04/12/2012 12:13:00) Eosinophils # [0.0-0.5 K/CMM] 0.0 K/CMM (04/16/2012 05:30:00) 0.0 K/CMM (04/12/2012 12:13:00) Basophils # [0.0-0.2 K/CMM] 0.0 K/CMM (04/16/2012 05:30:00) 0.0 K/CMM (04/12/2012 12:13:00)
--- OUTSIDE RECORDS SUMMARY | 2020-04-14 11:58 | XMS REPORT | Summary of Care ---
Author Author [facility] Organization [facility] Address Unknown Phone Unavailable Encounter TOYIN Mcdowell(ANT) [id number] Date(s): 05/17/19 - 05/17/19 [facility] [address] [place] [address]- [phone] Discharge Disposition: Home or Self Care Attending Physician: Vamsi Crowley MD Vital Signs Most recent to 1 oldest [Reference Range]: Height 167.64 cm (05/17/19 10:34 AM) Blood Pressure 161/88 mmHg [90-140/60-90 mmHg] *HI* (05/17/19 10:34 AM) Peripheral Pulse 78 bpm Rate [60-100 bpm] (05/17/19 10:34 AM) Weight 48.182 kg (05/17/19 10:34 AM) Body Mass Index 17.14 m2 (05/17/19 10:34 AM) Problem List Condition Effective Dates Status [...] Active syndrome9, 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 oct 2014 placed Social [...] at age: 1 ; 2 entered on: 05/17/19 1"when I was younger" stated by patient, does not consume alcohol anymore. 2smoked 25 years ago, stopped smoking Assessment and Plan No data available for this section
--- OUTSIDE RECORDS SUMMARY | 2020-04-14 11:58 | XMS REPORT | Summary of Care ---
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 oct 2014 placed Social [...]
--- OUTSIDE RECORDS SUMMARY | 2020-04-14 11:58 | XMS REPORT | CCD ---
Author Author Auto Generated, CECILY SARMIENTO [facility] Address Unknown Phone Unavailable Care Team Providers Care Program Director/Morning Show Host Name Role Phone Rob Winslow RP Allergies, Adverse Reactions, Alerts Substance Reaction Status "RAW SHRIMP" Active NKDA Active Problem List Condition Effective Dates Status Uterine prolapse Active
--- OUTSIDE RECORDS SUMMARY | 2020-04-14 11:58 | XMS REPORT | Summary of Care ---
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 oct 2014 placed Social History [...]
--- OUTSIDE RECORDS SUMMARY | 2020-04-14 11:58 | XMS REPORT | Summary of Care ---
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 oct 2014 placed Social [...]
--- OUTSIDE RECORDS SUMMARY | 2020-04-14 11:58 | XMS REPORT | Summary of Care ---
Author Author [facility] Organization [facility] Address Unknown Phone Unavailable Encounter HQ Jeremias(FIN) [id number] Date(s): 12/20/17 - 12/20/17 [facility] [address] [place] [address]- Encounter Diagnosis Malignant neoplasm of unspecified site [...] Active syndrome9, 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/01/11 Active [id number], 12 Sprain of foot13, 14 01/01/11 Active [...] Hernia repair Completed Hysterectomy Completed Insertion of Pzrh-f-biqk1 Completed 1left side. oct 2014 placed Social [...]
--- OUTSIDE RECORDS SUMMARY | 2020-04-14 11:58 | XMS REPORT | Summary of Care ---
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 oct 2014 placed Social [...]
--- OUTSIDE RECORDS SUMMARY | 2020-04-14 11:58 | XMS REPORT | Summary of Care ---
Author Author [facility] Organization [facility] Address Unknown Phone Unavailable Encounter HQ Jeremias(FIN) [id number] Date(s): 08/01/18 - 08/01/18 [facility] [address] [place] [address]- Encounter Diagnosis Age-related osteoporosis without current pathological fracture (Final) - 08/07/18 Malignant neoplasm of upper-inner quadrant of right female breast (Final) - Other specified disorders of bone density and structure, left thigh (Final) - Discharge Disposition: Home or Self [...] Active syndrome9, 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 oct 2014 placed Social [...]
--- OUTSIDE RECORDS SUMMARY | 2020-04-14 11:58 | XMS REPORT | Summary of Care ---
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 oct 2014 placed Social [...]
--- OUTSIDE RECORDS SUMMARY | 2020-04-14 11:58 | XMS REPORT | CCD ---
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 Name Role Phone Felice Robles CP Allergies, Adverse Reactions, Alerts Substance Reaction Status "RAW SHRIMP" Active NKDA Active Problem List Condition Effective Dates Status Asthma Active Chronic obstructive pulmonary disease Active HTN - Hypertension Active Uterine prolapse Active Medications Medication Instructions Start Date End Date Status Tylenol 650 mg, Route: PO, ONCE, Dosing 02/24/2013 013 Completed Weight 57.273, kg, Priority: STAT, Start date: 02/24/13 15:07:00, Stop date: 02/24/13 15:07:00 meclizine 25 mg oral 25 mg, PO, Q6H, PRN, 30 tab, 02/24/2013 0 03/04/2013 Ordered tablet Dizziness, Substitution All owed Saline Flush 0.9% 5 ml, Route: IVP, Drug Form: INJ, 02/24/2013 02/24/2013 Discontinued Dosing Weight 57.273, kg, PRN, PRN Line Flush, Start date: 02/24/13 12:17:00, Duration: 30 day, Stop date: 03/26/13 12:16:00 Vital Signs Most recent to oldest [Reference Range]: 1 Height 167.64 cm (02/24/2013 11:41:00) Weight 57.273 kg (02/24/2013 11:41:00) Results URINALYSIS Most recent to oldest [Reference Range]: 1 UA Turbidity [Clear] Clear (02/24/2013 13:30:28) UA Color [Yellow] Yellow *NA* (02/24/2013 13:30:28) UA pH [5.0-8.0] 6.0 (02/24/2013 13:30:28) UA Spec Grav [<=1.030] >=1.030 *ABN* (02/24/2013 13:30:28) UA Glucose [Negative] Negative (02/24/2013:30:28) UA Blood [Negative] Negative (02/24/2013:30:28) UA Ketones [Negative] Negative *NA* (02/24/2013 13:30:28) UA Protein [Negative] Negative (02/24/2013 13:30:28) UA Urobilinogen [0.1-1.0 EU/dL] 0.2 EU/dL (02/24/2013 13:30:28) UA Bili [Negative] Negative *NA* (02/24/2013 13:30:28) UA Leuk Est [Negative] Negative (02/24/2013:30:28) UA Nitrite [Negative] Negative (02/24/2013:30:28) UA WBC [None Seen /HPF] 0-2 /HPF (02/24/2013 13:30:28) UA RBC [0-2 /HPF] 0-2 /HPF (02/24/2013 13:30:28) UA Bacteria [None Seen /HPF] Occasional /HPF (02/24/2013 13:30:28) UA Sq Epi [Few /LPF] Rare /LPF (02/24/2013 13:30:28) UA Mucus [None Seen /LPF] Many /LPF *ABN* (02/24/2013 13:30:28) Micro? Performed (02/24/2013 13:30:28) CHEMISTRY Most recent to oldest [Reference Range]: 1 Sodium Lvl [135-145 mEq/L] 134 mEq/L *LOW* (02/24/2013 13:30:00) Potassium Lvl [3.5-5.1 mEq/L] 3.9 mEq/L (02/24/2013 13:30:00) Chloride Lvl [95-109 mEq/L] 98 mEq/L (02/24/2013 13:30:00) CO2 [24-32 mEq/L] 27 mEq/L (02/24/2013 13:30:00) AGAP [10.0-20.0 mEq/L] 12.9 mEq/L (02/24/2013 13:30:00) Creatinine Lvl [0.5-1.4 mg/dL] 0.7 mg/dL (02/24/201330:00) eGFR 89 mL/min/1.73m2 1 *NA* (02/24/201330:00) BUN [7-22 mg/dL] 22 mg/dL (02/24/201330:00) B/C Ratio [6-25] 31 *HI* (02/24/20133000) Glucose Lvl [70-99 mg/dL] 89 mg/dL 2 (02/24/201300) Total Protein [6.4-8.4 g/dL] 7.2 g/dL (02/24/2013:00) Albumin Lvl [3.5-5.0 g/dL] 3.9 g/dL (02/24/201300) Globulin [2.0-4.0 g/dL] 3.3 g/dL (02/24/2013) A/G Ratio [0.7-1.6] 1.2 (02/24/2013) Calcium Lvl [8.5-10.5 mg/dL] 9.2 mg/dL (02/24/201330:00) ALT [0-65 unit/L] 31 unit/L (02/24/2013) AST [0-37 unit/L] 21 unit/L (02/24/2013:00) Alk Phos [39-136 unit/L] 67 unit/L (02/24/201300) Bili Total [0.2-1.3 mg/dL] 0.5 mg/dL (02/24/2013:00) Total CK [12-191 unit/L] 54 unit/L (02/24/2013:00) CK MB [0.5-3.6 ng/mL] 0.8 ng/mL (02/24/201300) CK MB Index [0.0-2.5] 1.5 (02/24/201300) Troponin-I [0.00-0.40 ng/mL] <0.02 ng/mL (02/24/2013:30:00) 1Result Comment: The eGFR is calculated using [...] be mul tiplied by the estimated BMI. 2Interpretive Data: Adult reference range values reflect the clinical guidelines of the [place] [employer]. HEMATOLOGY Most recent to oldest [Reference Range]: 1 WBC [3.7-10.4 K/CMM] 6.8 K/CMM (02/24/201330:) RBC [4.20-5.40 M/CMM] 4.35 M/CMM (02/24/2013:30:00) Hgb [12.0-16.0 g/dL] 12.7 g/dL (02/24/2013:00) Hct [36.0-48.0 %] 38.4 % (02/24/2013:30:) MCV [81.0-99.0 fL] 88.3 fL (02/24/201330:00) MCH [27.0-31.0 pg] 29.2 pg (02/24/2013:30:00) MCHC [32.0-36.0 g/dL] 33.1 g/dL (02/24/2013::00) RDW [11.5-14.5 %] 14.3 % (02/24/2013:00) Platelet [133-450 K/CMM] 273 K/CMM (02/24/2013:30:00) MPV [7.4-10.4 fL] 8.3 fL (02/24/2013 13:30:00) Segs [45.0-75.0 %] 67.0 % (02/24/2013 13:30:00) Lymphocytes [20.0-40.0 %] 22.6 % (02/24/2013 13:30:00) Monocytes [2.0-12.0 %] 7.8 % (02/24/2013 13:30:00) Eosinophils [0.0-4.0 %] 1.7 % (02/24/2013:30:00) Basophils [0.0-1.0 %] 0.9 % (02/24/2013 13:30:00) Segs-Bands # [1.5-8.1 K/CMM] 4.5 K/CMM (02/24/2013:30:00) Lymphocytes # [1.0-5.5 K/CMM] 1.5 K/CMM (02/24/2013 13:30:00) Monocytes # [0.0-0.8 K/CMM] 0.5 K/CMM (02/24/2013 13:30:00) Eosinophils # [0.0-0.5 K/CMM] 0.1 K/CMM (02/24/2013 13:30:00) Basophils # [0.0-0.2 K/CMM] 0.1 K/CMM (02/24/2013 13:30:00) PT [12.0-14.7 seconds] 11.9 seconds *LOW* (02/24/2013 13:30:00) INR [0.85-1.17] 0.86 3 (02/24/2013 13:30:00) PTT [22.9-35.8 seconds] 28.9 seconds 4 (02/24/2013 13:30:00) 3Interpretive Data: RECOMMENDED RANGES FOR PROTIME INR: 2.0-3.0 for most medical and surgical thromboembolic states. 2.5-3.5 for artificial heart valves and recurrent embolism. INR SHOULD BE USED ONLY FOR PATIENTS ON STABLE ANTICOAGULANT THERAPY. 4Interpretive Data: Heparin Therapeutic Range: 57 - 92 Seconds Procedures Procedures Date Related Diagnosis Hernia repair
--- OUTSIDE RECORDS SUMMARY | 2020-04-14 11:58 | XMS REPORT | Summary of Care ---
Author Author [facility] Organization [facility] Address Unknown Phone Unavailable Encounter HQ Nella_kenna(FIN) [id number] Date(s): 01/23/19 - 01/23/19 [facility] [address] [place] [address]- [phone] Discharge Disposition: Home or Self Care Attending Physician: Juanjose Meyer MD Referring Physician: Juanjose Meyer MD Vital Signs No data available for this section Problem List Condition Effective Dates Status Health Status Informan conor Lynn 12/22/14 Active baumannii(Confirmed) 1, 2 Arthritis [...] Active syndrome9, 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/01/11 Active [id number], 12 Sprain of foot13, 14 01/01/11 Active [...] Hernia repair Completed Hysterectomy Completed Insertion of [id number]-e-cmzb1 Completed 1left side. oct 2014 placed Social [...]
--- OUTSIDE RECORDS SUMMARY | 2020-04-14 11:58 | XMS REPORT | Summary of Care ---
Author Author [facility] Organization [facility] Address Unknown Phone Unavailable Encounter TOYIN Mcdowell(FIN) [id number] Date(s): 07/10/19 - 07/11/19 [facility] [address] [place] [address]- [phone] Vital Signs No data available for this [...] Active syndrome9, 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/01/11 Active [id number], 12 Sprain of foot13, 14 01/01/11 Active [...] [employer] on 02/11/15. 11Data migrated from [employer] on 02/11/15. 12Data migrated from [employer] on 02/11/15. 13Data migrated from [employer] on 02/11/15. 14Data migrated from [employer] on 02/11/15. Allergies, Adverse Reactions, Alerts Substance Reaction Severity Status "RAW SHRIMP" Active NKDA Active Food Shrimp Active Medications Myrbetriq 25 mg oral tablet, extended release 25 mg = 1 tab, PO, Daily, # 30 tab, 11 Refill(s), Pharmacy: [id number] Start Date: 07/11/19 Status: Ordered Results No data available for this section Immunizations Given and Recorded Vaccine Date Status Refusal Reason Hx influenza vaccine-unspecified 05/14/17 Given influenza virus vaccine, inactivated 07/02/14 G iven Hx pneumococcal vaccine 11/12/11 Given Procedures Procedure Date Related Diagnosis Body Site Status Bladder operation Completed Cholecystectomy Completed Hernia repair Completed Hysterectomy Completed Insertion of Ekjt-p-skoz1 Completed 1left side. oct 2014 placed Social [...]
--- OUTSIDE RECORDS SUMMARY | 2020-04-14 11:58 | XMS REPORT | Summary of Care ---
Author Author [facility] Organization [facility] Address Unknown Phone Unavailable Encounter TOYIN Mcdowell(ANT) [id number] Date(s): 07/31/19 - 07/31/19 [facility] [address] [place] [address]- [phone] Discharge Disposition: Home or Self Care Attending Physician: Vamsi Crowley MD Vital Signs Most recent to 1 oldest [Reference Range]: Blood Pressure 192/83 mmHg [90-140/60-90 mmHg] *HI* (07/31/19 11:04 AM) Peripheral Pulse 88 bpm Rate [60-100 bpm] (07/31/19 11:04 AM) Problem List Condition Effective Dates Status [...] Active syndrome9, 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/01/11 Active [id number], 12 Sprain of foot13, 14 01/01/11 Active Uterine Active prolapse(Confirmed) Enterocele(Confirmed Active ) 1MDRO -- SPUTUM, 12/22/2014 2Problem added by Discern Expert. 3Data migrated from [employer] on 02/11/15. 4Data migrated from [employer] [...] Hernia repair Completed Hysterectomy Completed Insertion of Yhlk-z-qmit3 Completed 1left side. oct 2014 placed Social [...]
--- OUTSIDE RECORDS SUMMARY | 2020-04-14 11:58 | XMS REPORT | Summary of Care ---
Author Author [facility] Organization [facility] Address Unknown Phone Unavailable Encounter TOYIN Mcdowell(ANT) [id number] Date(s): 06/09/19 - 06/09/19 [facility] [address] [place] [address]- Discharge Disposition: Home or Self Care Attending Physician: Vamsi Crowley MD Admitting Physician: Vamsi Crowley MD Referring Physician: Vamsi Crowley MD Vital Signs 1 2 3 Most recent to oldest [Reference Range]: 157.48 cm (06/06/19 12:47 PM) Height 151/73 mmHg *HI* (06/09/19 8:00 PM) 168/82 mmHg *HI* (06/09/19 7:45 PM) 115/58 mmHg (06/09/19 7:30 PM) Blood Pressure [90-140/60-90 mmHg] 29 BRMIN *HI* (06/09/19 8:00 PM) 17 BRMIN (06/09/19 7:45 PM) 9 BRMIN *LOW* (06/09/19 7:30 PM) Respiratory Rate [14-20 BRMIN] 64 bpm (06/06/19 12:00 PM) Peripheral Pulse Rate [60-100 bpm] 46.875 kg (06/06/19 12:47 PM) Weight 18.9 m2 (06/06/19 12:47 PM) Body Mass Index Problem List Condition [...] Active syndrome9, 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/01/11 Active [id number], 12 Sprain of foot13, 14 01/01/11 Active [...] NKDA Active Food Shrimp Active Medications acetaminophen (ANES) Route: IV, Drug form: INJ, ONCE, Stop date: 06/09/19 14:26:00 CDT Start Date: 06/09/19 Stop Date: 06/09/19 Status: Completed Advair Diskus 500 mcg-50 mcg inhalation powder INHALATION, BID, 0 Refill(s) Start Date: 06/06/19 Status: Ordered ANES acetaminophen 1,000 mg, 100 mL, Route: IVPB, Drug form: INJ, ONCE, Dosing Weight 46.875, kg, P RN Pain Score 1-3, Start date: 06/09/19 14:57:00 CDT, 0 Notes: Infuse over 15 minutesDo not exceed 4gm/day of acetaminophen MEDICAT ION WASTE Product Size: 1000 mgProduct Wasted: ___ mg Start Date: 06/09/19 Stop Date: 06/09/19 Status: Discontinued ANES diphenhydrAMINE 12.5 mg, 0.25 mL, Route: IVP, Drug form: INJ, Q6H, Dosing Weight 46.875, kg, PRN Itching, Start date: 06/09/19 14:57:00 CDT, Duration: 30 day, Stop date: 14:56:00 CDT, 0 Notes: (Same as: Benadryl) Start Date: 06/09/19 Stop Date: 06/09/19 Status: Discontinued ANES fentaNYL 25 microgram, 0.5 mL, Route: IVP, Drug form: INJ, Q5Min, Dosing Weight 46.875, k g, PRN Pain Score 4-6, Priority: Routine, Start date: 06/09/19 14:57:00 CDT, Dur ation: 4 doses or times, Stop date: Limited # of times, 0 Notes: (Same as: Sublimaze) Preservative free. Start Date: 06/09/19 Stop Date: 06/09/19 Status: Discontinued ANES flumazenil 0.2 mg, 2 mL, Route: IVP, Drug form: INJ, PRN, Dosing Weight 46.875, kg, PRN Migue zodiazepine Reversal, Initial dose, Start date: 06/09/19 14:57:00 CDT, Duration: 30 day, Stop date: 07/09/19 14:56:00 CDT, 0 Notes: (Same as: Romazicon) Start Date: 06/09/19 Stop Date: 06/09/19 Status: Discontinued ANES HYDROmorphone 0.5 mg, 0.25 mL, Route: IVP, Drug form: INJ, Q5Min, Dosing Weight 46.875, kg, MD N Pain Score 7-10, Start date: 06/09/19 14:57:00 CDT, Duration: 4 doses or times , Stop date: Limited # of times, 0 Notes: Same as Dilaudid Start Date: 06/09/19 Stop Date: 06/09/19 Status: Discontinued ANES labetalol 10 mg, 2 mL, Route: IVP, Drug form: INJ, Q5Min, Dosing Weight 46.875, kg, PRN El evated BP, Start date: 06/09/19 14:57:00 CDT, Duration: 5 doses or times, Stop d ate: Limited # of times, 0 Start Date: 06/09/19 Stop Date: 06/09/19 Status: Discontinued ANES naloxone 0.4 mg, 1 mL, Route: IVP, Drug form: INJ, Q2MIN, Dosing Weight 46.875, kg, PRN N arcotic Reversal, Start date: 06/09/19 14:57:00 CDT, Duration: 8 doses or times, Stop date: Limited # of times, 0 Notes: Same as Narcan Start Date: 06/09/19 Stop Date: 06/09/19 Status: Discontinued ANES ondansetron 4 mg, 2 mL, Route: IVP, Drug form: INJ, ONCE, Dosing Weight 46.875, kg, PRN Naus ea & Vomiting, Start date: 06/09/19 14:57:00 CDT, 0 Notes: (Same as: Calixto) MEDICATION WASTE Product Size: 4 mgProduct Was bradly: ___ mg Start Date: 06/09/19 Stop Date: 06/09/19 Status: Completed ceFAZolin (ANES) Route: IV, Drug form: INJ, ONCE, Stop date: 06/09/19 13:30:00 CDT Start Date: 06/09/19 Stop Date: 06/09/19 Status: Completed Ceftin 500 mg oral tablet 500 mg = 1 tab, PO, BID, X 5 day, # 10 tab, 0 Refill(s), Pharmacy: [id number] Start Date: 06/09/19 Stop Date: 06/14/19 Status: Ordered dexamethasone 8 mg, Route: IM, ONCE, Dosing Weight 46.875, kg, Start date: 06/09/19 16:40:00 C DT, Stop date: 06/09/19 16:40:00 CDT Start Date: 06/09/19 Stop Date: 06/09/19 Status: Completed dexamethasone (ANES) Route: IV, Drug form: INJ, ONCE, Stop date: 06/09/19 13:45:00 CDT Start Date: 06/09/19 Stop Date: 06/09/19 Status: Completed ePHEDrine (ANES) Route: IV, Drug form: INJ, ONCE, Stop date: 06/09/19 13:35:00 CDT Start Date: 06/09/19 Stop Date: 06/09/19 Status: Completed Linda-C 1000 mg oral tablet 1,000 mg = 1 tab, PO, Daily, 0 Refill(s) Start Date: 06/06/19 Status: Ordered fentaNYL (ANES) Route: IV, Drug form: INJ, ONCE, Stop date: 06/09/19 14:00:00 CDT Start Date: 06/09/19 Stop Date: 06/09/19 Status: Completed glycopyrrolate (ANES) Route: IV, Drug form: INJ, ONCE, Stop date: 06/09/19 14:05:00 CDT Start Date: 06/09/19 Stop Date: 06/09/19 Status: Completed Lactated Ringers Injection IV (ANES) 1000 mL Route: IV, Total Volume: 1,000, Start date: 06/09/19 12:39:00 CDT, Stop date: 13:39:00 CDT Start Date: 06/09/19 Stop Date: 06/09/19 Status: Completed Lactated Ringers Injection IV 1,000 mL 1,000 mL, Rate: 125 ml/hr, Infuse over: 8 hr, Route: IV, Dosing Weight 46.875 kg , Total Volume: 1,000, Start date: 06/09/19 14:57:00 CDT, Duration: 30 day, Stop date: 07/09/19 14:56:00 CDT, 1.44, m2, 0 Start Date: 06/09/19 Stop Date: 06/09/19 Status: Discontinued lidocaine (ANES) Route: IV, Drug form: INJ, ONCE, Stop date: 06/09/19 13:45:00 CDT Start Date: 06/09/19 Stop Date: 06/09/19 Status: Completed omeprazole 20 mg oral delayed release capsule 20 mg = 1 cap, PO, Daily, 0 Refill(s) Start Date: 06/06/19 Status: Ordered ondansetron 4 mg, Route: IVP, Drug form: INJ, ONCE, Dosing Weight 46.875, kg, Start date: 18:14:00 CDT, Stop date: 06/09/19 18:14:00 CDT Start Date: 06/09/19 Stop Date: 06/09/19 Status: Completed ondansetron (ANES) Route: IV, Drug form: INJ, ONCE, Stop date: 06/09/19 13:45:00 CDT Start Date: 06/09/19 Stop Date: 06/09/19 Status: Completed Pepcid 10 mg, 1 mL, Route: IVP, Drug form: INJ, ONCE, Dosing Weight 46.875, kg, Start d ate: 06/09/19 16:40:00 CDT, Stop date: 06/09/19 16:40:00 CDT, 0 Notes: (Same as: Pepcid)Can be dilute in 5-10cc NS IVP: Slow IV push over at le ast 2 minutes. Start Date: 06/09/19 Stop Date: 06/09/19 Status: Completed Probiotic Formula PO, Daily, 0 Refill(s) Start Date: 06/06/19 Stop Date: 06/06/19 Status: Completed propofol (ANES) Route: IV, Drug form: INJ, ONCE, Stop date: 06/09/19 13:45:00 CDT Start Date: 06/09/19 Stop Date: 06/09/19 Status: Completed Reglan 10 mg, Route: IVP, Drug form: INJ, ONCE, Dosing Weight 46.875, kg, PRN Nausea & Vomiting, Start date: 06/09/19 18:13:00 CDT Start Date: 06/09/19 Stop Date: 06/09/19 Status: Completed scopolamine 1.5 mg transdermal film 1 patch, Route: TOP, Drug Form: ERFILM, Dosing Weight 46.875, kg, Q72H, PRN Naus ea & Vomiting, Start date: 06/09/19 18:12:00 CDT, Duration: 30 day, Stop date: 07/09/19 18:11:00 CDT, 0 Notes: Change patch every 72 hours (Same as: Transderm-Scop) Start Date: 06/09/19 Stop Date: 06/09/19 Status: Discontinued taMOXifen 20 mg oral tablet 20 mg = 1 tab, PO, Daily, 0 Refill(s) Start Date: 06/06/19 Status: Ordered Ventolin HFA 90 mcg/inh inhalation aerosol with adapter 2 puff, INHALER, Q4H, PRN wheezing, coughing, or shortness of breath, # 8 gm, 1 Refill(s) Start Date: 06/06/19 Status: Ordered Xopenex 0.63 mg/3 mL inhalation solution 0.63 mg = 3 mL, NEB, TID, 0 Refill(s) Start Date: 06/06/19 Status: Ordered Results Most recent to 1 oldest [Reference Range]: eGFR 93 mL/min/1.73m2 1 *NA* (06/06/19 1:01 PM) AGAP [10.0-20.0 12.9 mEq/L mEq/L] (06/06/19 1:01 PM) BUN [7-22 mg/dL] 14 mg/dL (06/06/19 1:01 PM) Calcium Lvl 8.8 mg/dL [8.5-10.5 mg/dL] (06/06/19 1:01 PM) Chloride Lvl [95-109 98 mEq/L mEq/L] (06/06/19 1:01 PM) CO2 [24-32 mEq/L] 23 mEq/L *LOW* (06/06/19 1:01 PM) Creatinine Lvl 0.55 mg/dL [0.50-1.40 mg/dL] (06/06/19 1:01 PM) Glucose Lvl [70-99 71 mg/dL mg/dL] (06/06/19 1:01 PM) Hct [36.0-48.0 %] 39.1 % (06/06/19 1:01 PM) Hgb [12.0-16.0 g/dL] 12.9 g/dL (06/06/19 1:01 PM) Potassium Lvl 4.9 mEq/L [3.5-5.1 mEq/L] (06/06/19 1:01 PM) Sodium Lvl [135-145 129 mEq/L mEq/L] *LOW* (06/06/19 1:01 PM) 1Result Comment: The eGFR is calculated [...] Hernia repair Completed Hysterectomy Completed Insertion of Wjmp-v-[id number] Completed 1left side. oct 2014 placed Social History Social History Type Response Alcohol Past1 Employment/School Status: Employed. Highest education level: University degree(s). Exercise Exercise type: Walking, Yog a. Sexual Sexually active: No. Substance Abuse Use: None. Smoking Status Former smoker; Type: Cigare ttes; Ready to change: No; Exposure to Tobacco Smoke None; Cigarette Smoking Last 365 Days No; Reg Smoking Cessation Counseling Yes; Started at age: 17.0; entered on: 06/06/19 1"when I was younger" stated by patient, does not consume alcohol anymore. Assessment and Plan Extracted from: Title: Clinical Document Author: Vamsi Crowley MD Date: PATIENT NAME:Cecily Apple DATE OF OPERATION/PROCEDURE:06/09/2019 *_*_* PREOPERATIVE DIAGNOSES: 1. Anterior vaginal prolapse 2.Stress urinary incontinence POSTOPERATIVE DIAGNOSES: 1. Same as above 2. Enterocele PROCEDURE PERFORMED: 1. Anterior repair with dermis 2. Altis urethral sling 3. Cystoscopy SURGEON: Vamsi Crowley M.D. STOPPER MAKER HELPER: None ANESTHESIA: General. ESTIMATED BLOOD LOSS: 70mL. COMPLICATIONS: None. SPECIMEN: None DRAINS: 16 Burkinan Spencer catheter INDICATIONS FOR PROCEDURE: This is [...]
--- OUTSIDE RECORDS SUMMARY | 2020-04-14 11:59 | XMS REPORT | Summary of Care ---
Author Author [facility] Organization [facility] Address Unknown Phone Unavailable Encounter HQ Jeremias(ANT) [id number] Date(s): 09/26/15 - 09/26/15 [facility] [address] [place] [address]- Discharge Disposition: Home Attending Physician: Sahra Sousa MD Referring Physician: Evin Blanc MD Vital Signs No data available for [...] Active syndrome9, 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/01/11 Active owjscyrj35, 12 Sprain of foot13, 14 01/01/11 Active [...] No data available for this section Immunizations Vaccine Date Refusal Reason Hx pneumococcal vaccine 11/12/11 influenza virus vaccine, inactivated 07/02/14 Procedures Procedure Date Related Diagnosis Body Site Bladder operation Cholecystectomy Hernia repair Hysterectomy Insertion of Yrhf-[id number] 1left side. oct 2014 placed Social History [...]
--- OUTSIDE RECORDS SUMMARY | 2020-04-14 11:59 | XMS REPORT | Summary of Care ---
Author Organization Unknown Address Unknown Phone Unavailable Encounter TOYIN Mcdowell(ANT) [id number] Date(s): 11/25/14 - 11/27/14 [facility] [address] [place] [address]- Discharge Disposition: Home Physician Attending: Sharla Mazariegos MD Physician Admitting: Sharla Mazariegos MD Vital Signs 1 2 3 Most recent to oldest [Reference Range]: 167.64 cm (11/25/14 2:59 PM) Height 97.7 DegF (11/27/14 11:30 AM) 97.5 DegF (11/27/14 11:27 AM) 98.1 DegF (11/27/14 7:59 AM) Temperature Oral [96.4-99.1 DegF] 127/74 mmHg (11/27/14 11:30 AM) 166/75 mmHg *HI* (11/27/14 11:27 AM) 129/72 mmHg (11/27/14 7:59 AM) Blood Pressure [90-140/60-90 mmHg] 18 BRMIN (11/27/14 11:30 AM) 18 BRMIN (11/27/14 11:27 AM) 17 BRMIN (11/27/14 7:59 AM) Respiratory Rate [14-20 BRMIN] 82 bpm (11/27/14 11:30 AM) 64 bpm (11/27/14 11:27 AM) 72 bpm (11/27/14 7:59 AM) Peripheral Pulse Rate [60-100 bpm] 47.727 kg (11/25/14 2:59 PM) Weight 16.98 m2 (11/25/14 2:59 PM) Body Mass Index Problem List Condition Effective Dates Status Health Status Informan t Appendectomy(Confirm Active ed) Asthma(Confirmed) Active Breast ca(Confirmed) Active Cholecystectomy(Conf Active irmed) Chronic obstructive Active pulmonary disease(Confirmed) 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) GERD Active (gastroesophageal reflux disease)(Confirmed) HTN - Active Hypertension(Confirm ed) Hyponatremia(Confirm Resolved ed) Hypothyroidism(Confi Active rmed) Hysterectomy(Confirm Active ed) Osteoporosis(Confirm Active ed) Uterine Active prolapse(Confirmed) Allergies, Adverse Reactions, Alerts Substance Reaction Severity Status "RAW SHRIMP" Active NKDA Active Medications acetaminophen 650 mg, 2 tab, Route: PO, Drug form: TAB, Q4H, Dosing Weight 47.727, kg, PRN Juaquin n 1-3/Temp > 100.4 F, Start date: 11/25/14 18:45:00, Duration: 30 day, Stop date: 12/25/14 18:44:00 Notes: Do not exceed 4 gm/day. (Same as: Tylenol) Start Date: 11/25/14 Stop Date: 11/27/14 Status: Discontinued Advair Diskus 500 mcg-50 mcg inhalation powder 1 puff, Route: INHALATION, Drug Form: AERO, Dosing Weight 47.727, kg, BID, Start date: 11/26/14 17:00:00, Duration: 30 day, Stop date: 12/26/14 9:00:00 Start Date: 11/26/14 Stop Date: 11/26/14 Status: Deleted budesonide-formoterol 160 mcg-4.5 mcg/inh inhalation aerosol with adapter 2 inhalation, Route: INHALATION, Drug Form: AERO/A, RBID, Start date: 11/26/14 1 5:51:00, Duration: 30 day, Stop date: 12/26/14 8:00:00 Notes: (Same as: Symbicort) Start Date: 11/26/14 Stop Date: 11/27/14 Status: Discontinued calcium gluconate + Sodium Chloride 0.9% IV 100 mL 3 gm, 30 mL, Route: IVPB, PRN, Dosing Weight 47.727, kg, PRN Abnormal Lab Result , For NON-ICU Patients Only., Start date: 11/25/14 20:54:00, Duration: 30 day, S top date: 12/25/14 20:53:00 Start Date: 11/25/14 Stop Date: 11/27/14 Status: Discontinued calcium gluconate + Sodium Chloride 0.9% IV 100 mL 2 gm, 20 mL, Route: IVPB, PRN, Dosing Weight 47.727, kg, PRN Abnormal Lab Result , For NON-ICU Patients Only., Start date: 11/25/14 20:54:00, Duration: 30 day, S top date: 12/25/14 20:53:00 Start Date: 11/25/14 Stop Date: 11/27/14 Status: Discontinued cloNIDine 0.1 mg oral tablet 0.1 mg, 1 tab, Route: PO, Drug form: TAB, Q8H, Dosing Weight 47.727, kg, PRN See Nurse's Notes, Start date: 11/26/14 15:48:00, Duration: 30 day, Stop date: 12/12 01/25 15:47:00, SBP >190 or DBP > 100 Notes: (Same As: Catapres) Start Date: 11/26/14 Stop Date: 11/27/14 Status: Discontinued DuoNeb inhalation solution 3 ml, Route: INHALATION, Drug Form: SOLN, Dosing Weight 47.727, kg, PRN, PRN Res piratory Protocol, Start date: 11/26/14 15:46:00, Duration: 30 day, Stop date: 0 12/26/14 15:45:00 Notes: (Same as: Duoneb) Start Date: 11/26/14 Stop Date: 11/27/14 Status: Discontinued levothyroxine 75 microgram, 1 tab, Route: PO, Drug form: TAB, Daily, Dosing Weight 47.727, kg, Start date: 11/27/14 9:00:00, Duration: 30 day, Stop date: 12/26/14 9:00:00 Notes: Take 1 hour before or 2 hours after meal; Enteral feeds may interefere wi th the absorption of this medication. (Same as:Synthroid, Levothroid) Start Date: 11/27/14 Stop Date: 11/27/14 Status: Discontinued magnesium oxide 800 mg, 2 tab, Route: PO, Drug form: TAB, PRN, Dosing Weight 47.727, kg, PRN Abn ormal Lab Result, For NON-ICU Patients Only., Start date: 11/25/14 20:54:00, Dur ation: 30 day, Stop date: 12/25/14 20:53:00 Notes: (Same as: Mag-Ox 400)Magnesium oxide [id number] elemental magnesiumDose= ____mg magnesium oxide (___mg elemental magnesium) Start Date: 11/25/14 Stop Date: 11/27/14 Status: Discontinued magnesium sulfate 1 gm, 100 mL, Route: IVPB, Drug form: INJ, PRN, Dosing Weight 47.727, kg, PRN Ab normal Lab Result, For NON-ICU Patients Only., Start date: 11/25/14 20:54:00, Du ration: 30 day, Stop date: 12/25/14 20:53:00 Start Date: 11/25/14 Stop Date: 11/27/14 Status: Discontinued magnesium sulfate 2 gm, 50 mL, Route: IVPB, Drug form: INJ, PRN, Dosing Weight 47.727, kg, PRN Abn ormal Lab Result, For NON-ICU Patients Only., Start date: 11/25/14 20:54:00, Dur ation: 30 day, Stop date: 12/25/14 20:53:00 Start Date: 11/25/14 Stop Date: 11/27/14 Status: Discontinued Lucernemines 5/325 oral tablet 1 tab, Route: PO, Drug Form: TAB, Dosing Weight 47.727, kg, Q6H, Start date: 18:00:00, Duration: 30 day, Stop date: 12/26/14 12:00:00 Notes: (Same as: Lucernemines 325/5) Do not exceed 4gm/day of acetaminophen. Start Date: 11/26/14 Stop Date: 11/27/14 Status: Discontinued NS 1000 mL 1,000 mL, Rate: 150 ml/hr, Infuse over: 6.7 hr, Route: IV, Dosing Weight 47.727 kg, Total Volume: 1,000, Start date: 11/25/14 18:44:00, Duration: 30 day, Stop d ate: 12/25/14 18:43:00 Start Date: 11/25/14 Stop Date: 11/25/14 Status: Discontinued ondansetron 4 mg, 2 mL, Route: IVP, Drug form: INJ, Q8H, Dosing Weight 47.727, kg, PRN Nause a & Vomiting, Start date: 11/25/14 18:45:00, Duration: 30 day, Stop date: 12/25/14 18:44:00 Notes: (Same as: Zofran) Start Date: 11/25/14 Stop Date: 11/27/14 Status: Discontinued potassium chloride 10 mEq, 100 mL, Route: IVPB, Drug form: INJ, PRN, Dosing Weight 47.727, kg, PRN Abnormal Lab Result, For NON-ICU Patients Only, Start date: 11/25/14 20:54:00, D uration: 30 day, Stop date: 12/25/14 20:53:00 Notes: Infuse at a rate of 10 mEq/hr.(Same as: KCL) Start Date: 11/25/14 Stop Date: 11/27/14 Status: Discontinued potassium chloride 20 mEq, 15 mL, Route: NJ, Drug form: LIQ, PRN, Dosing Weight 47.727, kg, PRN Abn ormal Lab Result, For NON-ICU Patients Only, Start date: 11/25/14 20:54:00, Dura tion: 30 day, Stop date: 12/25/14 20:53:00 Notes: (Same as: Potassium Chloride) Start Date: 11/25/14 Stop Date: 11/27/14 Status: Discontinued potassium chloride 20 mEq, 1 tab, Route: PO, Drug form: ERTAB, PRN, Dosing Weight 47.727, kg, PRN A bnormal Lab Result, For NON-ICU Patients Only, Start date: 11/25/14 20:54:00, Du ration: 30 day, Stop date: 12/25/14 20:53:00 Notes: (Same as: K-Dur 20)"Do Not Crush" With food and full glass of water Start Date: 11/25/14 Stop Date: 11/27/14 Status: Discontinued potassium phosphate + Sodium Chloride 0.9% IV 250 mL 15 mmol, 5 mL, Route: IVPB, PRN, Dosing Weight 47.727, kg, PRN Abnormal Lab Resu lt, For NON-ICU Patients Only., Start date: 11/25/14 20:54:00, Duration: 30 day, Stop date: 12/25/14 20:53:00 Notes: (Same as: K Phosphate.) 1 mMol phoshate has 1.47 mEq potassium Infuse o yady 4 hours Start Date: 11/25/14 Stop Date: 11/27/14 Status: Discontinued potassium phosphate + Sodium Chloride 0.9% IV 250 mL 30 mmol, 10 mL, Route: IVPB, PRN, Dosing Weight 47.727, kg, PRN Abnormal Lab Res ult, For NON-ICU Patients Only., Start date: 11/25/14 20:54:00, Duration: 30 day , Stop date: 12/25/14 20:53:00 Notes: (Same as: K Phosphate.) 1 mMol phoshate has 1.47 mEq potassium Infuse o yady 4 hours Start Date: 11/25/14 Stop Date: 11/27/14 Status: Discontinued potassium phosphate-sodium phosphate 250 mg-278 mg-164 mg oral powder 2 pkt, Route: PO, Drug Form: PDR/REC, Dosing Weight 47.727, kg, PRN, PRN Abnorma l Lab Result, For NON-ICU Patients Only, Start date: 11/25/14 20:54:00, Duration : 30 day, Stop date: 12/25/14 20:53:00 Notes: (Same as: Neutra-Phos) Each 1.25 gm pkt has 250mg phosphorous. Mix w/2.5 oz water and stir. Start Date: 11/25/14 Stop Date: 11/27/14 Status: Discontinued Protonix 40 mg, Route: IVP, Drug form: INJ, Daily, Dosing Weight 47.727, kg, Priority: NO W, Start date: 11/25/14 18:57:00, Duration: 30 day, Stop date: 12/25/14 9:00:00 Notes: For IV push reconstitute with 10 ml 0.9% sodium chloride and push over 2 minutes. (Same as: Protonix) Start Date: 11/25/14 Stop Date: 11/27/14 Status: Discontinued Saline Flush 0.9% 10 mL, Route: IVP, Drug Form: INJ, Dosing Weight 47.727, kg, PRN, PRN Line Flush , Start date: 11/25/14 15:34:00, Duration: 30 day, Stop date: 12/25/14 15:33:00 Notes: Same as: BD Posiflush Sterile Start Date: 11/25/14 Stop Date: 11/27/14 Status: Discontinued Saline Flush 0.9% 10 ml, Route: IVP, Drug Form: INJ, Dosing Weight 47.727, kg, PRN, PRN Line Flush , Start date: 11/25/14 18:45:00, Duration: 30 day, Stop date: 12/25/14 18:44:00 Notes: Same as: BD Posiflush Sterile Start Date: 11/25/14 Stop Date: 11/27/14 Status: Discontinued Sodium Chloride 0.9% (Bolus) IV 1,000 mL, Infuse Over: 1 hr, Route: IV, ONCE, Priority: STAT, Dosing Weight 47.7 27 kg, Start date: 11/25/14 15:34:00, Duration: 1 doses or times, Stop date: 15:34:00 Start Date: 11/25/14 Stop Date: 11/25/14 Status: Completed Sodium Chloride 0.9% IV 1,000 mL 1,000 mL, Rate: 125 ml/hr, Infuse over: 8 hr, Route: IV, Dosing Weight 47.727 kg , Total Volume: 1,000, Start date: 11/25/14 18:45:00, Duration: 30 day, Stop june e: 12/25/14 18:44:00 Start Date: 11/25/14 Stop Date: 11/27/14 Status: Discontinued sodium phosphate + Sodium Chloride 0.9% IV 250 mL 30 mmol, 10 mL, Route: IVPB, PRN, Dosing Weight 47.727, kg, PRN Abnormal Lab Res ult, For NON-ICU Patients Only., Start date: 11/25/14 20:54:00, Duration: 30 day , Stop date: 12/25/14 20:53:00 Start Date: 11/25/14 Stop Date: 11/27/14 Status: Discontinued sodium phosphate + Sodium Chloride 0.9% IV 250 mL 15 mmol, 5 mL, Route: IVPB, PRN, Dosing Weight 47.727, kg, PRN Abnormal Lab Resu lt, For NON-ICU Patients Only., Start date: 11/25/14 20:54:00, Duration: 30 day, Stop date: 12/25/14 20:53:00 Start Date: 11/25/14 Stop Date: 11/27/14 Status: Discontinued Spiriva 18 mcg inhalation capsule 18 microgram, 1 inhalation, Route: INHALATION, Drug form: CAP, Daily, Dosing Dejuan ght 47.727, kg, Start date: 11/27/14 9:00:00, Duration: 30 day, Stop date: 12/26 9:00:00 Notes: (Same As: Spiriva) Start Date: 11/27/14 Stop Date: 11/27/14 Status: Discontinued Zocor 20 mg, 1 tab, Route: PO, Drug form: TAB, Bedtime, Dosing Weight 47.727, kg, Star t date: 11/26/14 21:00:00, Duration: 30 day, Stop date: 12/25/14 21:00:00 Notes: (Same as: Zocor) Start Date: 11/26/14 Stop Date: 11/27/14 Status: Discontinued Zofran 4 mg oral tablet PO, PRN, 0 Refill(s) Start Date: 11/25/14 Status: Ordered Results ELECTROLYTES 1 2 3 Most recent to oldest [Reference Range]: 133 mEq/L *LOW* (11/27/14 3:15 AM) 127 mEq/L *LOW* (11/26/14 4:12 AM) 126 mEq/L *LOW* (11/25/14 3:48 PM) Sodium Lvl [135-145 mEq/L] 4.2 mEq/L (11/27/14 3:15 AM) 3.9 mEq/L (11/26/14 4:12 AM) 3.5 mEq/L (11/25/14 3:48 PM) Potassium Lvl [3.5-5.1 mEq/L] 103 mEq/L (11/27/14 3:15 AM) 101 mEq/L (11/26/14 4:12 AM) 93 mEq/L *LOW* (11/25/14 3:48 PM) Chloride Lvl [95-109 mEq/L] 24 mEq/L (11/27/14 3:15 AM) 19 mEq/L *LOW* (11/26/14 4:12 AM) 30 mEq/L (11/25/14 3:48 PM) CO2 [24-32 mEq/L] 10.2 mEq/L (11/27/14 3:15 AM) 10.9 mEq/L (11/26/14 4:12 AM) 6.5 mEq/L *LOW* (11/25/14 3:48 PM) AGAP [10.0-20.0 mEq/L] CHEM PANEL 1 2 3 Most recent to oldest [Reference Range]: 0.4 mg/dL *LOW* (11/27/14 3:15 AM) 0.5 mg/dL (11/26/14 4:12 AM) 0.6 mg/dL (11/25/14 3:48 PM) Creatinine Lvl [0.5-1.4 mg/dL] 106 mL/min/1.73m2 1 *NA* (11/27/14 3:15 AM) 98 mL/min/1.73m2 2 *NA* (11/26/14 4:12 AM) 93 mL/min/1.73m2 3 *NA* (11/25/14 3:48 PM) eGFR 6 mg/dL *LOW* (11/27/14 3:15 AM) 7 mg/dL (11/26/14 4:12 AM) 12 mg/dL (11/25/14 3:48 PM) BUN [7-22 mg/dL] 20 (11/25/14 3:48 PM) B/C Ratio [6-25] 77 mg/dL 4 (11/27/14 3:15 AM) 81 mg/dL 5 (11/26/14 4:12 AM) 105 mg/dL 6 *HI* (11/25/14 3:48 PM) Glucose Lvl [70-99 mg/dL] 6.6 g/dL (11/25/14 3:48 PM) Total Protein [6.4-8.4 g/dL] 3.5 g/dL (11/25/14 3:48 PM) Albumin Lvl [3.5-5.0 g/dL] 3.1 g/dL (11/25/14 3:48 PM) Globulin [2.0-4.0 g/dL] 1.1 (11/25/14 3:48 PM) A/G Ratio [0.7-1.6] 8.0 mg/dL *LOW* (11/27/14 3:15 AM) 7.9 mg/dL *LOW* (11/26/14 4:12 AM) 8.9 mg/dL (11/25/14 3:48 PM) Calcium Lvl [8.5-10.5 mg/dL] 1.7 mg/dL *LOW* (11/25/14 3:48 PM) Magnesium Lvl [1.8-2.4 mg/dL] 37 unit/L (11/25/14 3:48 PM) ALT [0-65 unit/L] 23 unit/L (11/25/14 3:48 PM) AST [0-37 unit/L] 86 unit/L (11/25/14 3:48 PM) Alk Phos [39-136 unit/L] 0.4 mg/dL (11/25/14 3:48 PM) Bili Total [0.2-1.3 mg/dL] 1Result Comment: The eGFR is calculated using [...] be mul tiplied by the estimated BMI. 4Interpretive Data: Adult reference range values reflect the clinical guidelines of the [place] [employer]. 5Interpretive Data: Adult reference range values reflect the clinical guidelines of the [place] [employer]. 6Interpretive Data: Adult reference range values reflect the clinical guidelines of the [place]. HEMATOLOGY 1 2 3 Most recent to oldest [Reference Range]: 4.2 K/CMM (11/26/14 4:12 AM) 4.5 K/CMM (11/25/14 3:48 PM) WBC [3.7-10.4 K/CMM] 3.54 M/CMM *LOW* (11/26/14 4:12 AM) 4.00 M/CMM *LOW* (11/25/14 3:48 PM) RBC [4.20-5.40 M/CMM] 10.3 g/dL *LOW* (11/26/14 4:12 AM) 11.6 g/dL *LOW* (11/25/14 3:48 PM) Hgb [12.0-16.0 g/dL] 30.4 % *LOW* (11/26/14 4:12 AM) 34.4 % *LOW* (11/25/14 3:48 PM) Hct [36.0-48.0 %] 85.9 fL (11/26/14 4:12 AM) 86.1 fL (11/25/14 3:48 PM) MCV [80.0-98.0 fL] 29.0 pg (11/26/14 4:12 AM) 29.1 pg (11/25/14 3:48 PM) MCH [27.0-31.0 pg] 33.8 g/dL (11/26/14 4:12 AM) 33.8 g/dL (11/25/14 3:48 PM) MCHC [32.0-36.0 g/dL] 13.1 % (11/26/14 4:12 AM) 12.9 % (11/25/14 3:48 PM) RDW [11.5-14.5 %] 410 K/CMM (11/26/14 4:12 AM) 506 K/CMM *HI* (11/25/14 3:48 PM) Platelet [133-450 K/CMM] 7.7 fL (11/26/14 4:12 AM) 7.9 fL (11/25/14 3:48 PM) MPV [7.4-10.4 fL] 47.2 % (11/26/14 4:12 AM) 54.5 % (11/25/14 3:48 PM) Segs [45.0-75.0 %] 47.5 % *HI* (11/26/14 4:12 AM) 40.9 % *HI* (11/25/14 3:48 PM) Lymphocytes [20.0-40.0 %] 3.3 % (11/26/14 4:12 AM) 3.0 % (11/25/14 3:48 PM) Monocytes [2.0-12.0 %] 1.3 % (11/26/14 4:12 AM) 1.0 % (11/25/14 3:48 PM) Eosinophils [0.0-4.0 %] 0.7 % (11/26/14 4:12 AM) 0.6 % (11/25/14 3:48 PM) Basophils [0.0-1.0 %] 2.0 K/CMM (11/26/14 4:12 AM) 2.5 K/CMM (11/25/14 3:48 PM) Segs-Bands # [1.5-8.1 K/CMM] 2.0 K/CMM (11/26/14 4:12 AM) 1.9 K/CMM (11/25/14 3:48 PM) Lymphocytes # [1.0-5.5 K/CMM] 0.1 K/CMM (11/26/14 4:12 AM) 0.1 K/CMM (11/25/14 3:48 PM) Monocytes # [0.0-0.8 K/CMM] 0.1 K/CMM (11/26/14 4:12 AM) 0.0 K/CMM (11/25/14 3:48 PM) Eosinophils # [0.0-0.5 K/CMM] 0.0 K/CMM (11/26/14 4:12 AM) 0.0 K/CMM (11/25/14 3:48 PM) Basophils # [0.0-0.2 K/CMM] Immunizations Vaccine Date Refusal Reason Hx pneumococcal vaccine 11/12/11 influenza virus vaccine, inactivated 07/02/14 Procedures Procedure Date Related Diagnosis Body Site Insertion of Port-a-cath Social History Social History Type Response Substance Abuse Use: None. Sexual Sexually active: No. Exercise Exercise type: Walking, Yog a. Employment/School Status: Employed. Highest education level: University degree(s). Alcohol Past Smoking Status Former smoker; Started at a ge: 0.0; Stopped at age: 1; Previous treatment: None; Ready to change: No; Concerns abo ut tobacco use in household: No; Exposure to Tobacco Smoke None; Cigaret te Smoking Last 365 Days No; Reg Smoking Cessation Counseling No Assessment and Plan No data available for this section
--- OUTSIDE RECORDS SUMMARY | 2020-04-14 11:59 | XMS REPORT | Summary of Care ---
Author Organization Unknown Address Unknown Phone Unavailable Encounter TOYIN Mcdowell(FIN) [id number] Date(s): 12/21/14 - 12/25/[address] [address]- Discharge Disposition: Home Physician Attending: Sharla Mazariegos MD Physician Admitting: Sharla Mazariegos MD Vital Signs 1 2 3 Most recent to oldest [Reference Range]: 165.1 cm (12/21/14 2:31 AM) Height 97.8 DegF (12/25/14 4:00 PM) 98 DegF (12/25/14 11:00 AM) 97.6 DegF (12/25/14 6:30 AM) Temperature Oral [96.4-99.1 DegF] 146/78 mmHg *HI* (12/25/14 4:00 PM) 148/74 mmHg *HI* (12/25/14 11:00 AM) 148/73 mmHg *HI* (12/25/14 6:30 AM) Blood Pressure [90-140/60-90 mmHg] 18 BRMIN (12/25/14 4:00 PM) 18 BRMIN (12/25/14 11:00 AM) 18 BRMIN (12/25/14 6:30 AM) Respiratory Rate [14-20 BRMIN] 80 bpm (12/25/14 4:00 PM) 82 bpm (12/25/14 11:00 AM) 76 bpm (12/25/14 6:30 AM) Peripheral Pulse Rate [60-100 bpm] 51.364 kg (12/21/14 2:31 AM) Weight 18.84 m2 (12/21/14 2:31 AM) Body Mass Index Problem List Condition Effective Dates Status Health Status Informan t Acinetobacter 12/22/14 Active baumannii(Confirmed) 1, 2 Appendectomy(Confirm Active ed) Asthma(Confirmed) Active Breast ca(Confirmed) Active Cholecystectomy(Conf Active irmed) Chronic obstructive Active pulmonary disease(Confirmed) 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) GERD Active (gastroesophageal reflux disease)(Confirmed) HTN - Active Hypertension(Confirm ed) Hyponatremia(Confirm Resolved ed) Hypothyroidism(Confi Active rmed) Hysterectomy(Confirm Active ed) Osteoporosis(Confirm Active ed) Uterine Active prolapse(Confirmed) 1MDRO -- SPUTUM, 12/22/2014 2Problem added by Discern Expert. Allergies, Adverse Reactions, Alerts Substance Reaction Severity Status "RAW SHRIMP" Active Food Shrimp Active NKDA Active Medications acetaminophen 650 mg, 2 tab, Route: PO, Drug form: TAB, Q4H, Dosing Weight 51.364, kg, PRN Juaquin n 1-3/Temp > 100.4 F, Start date: 12/21/14 6:08:00, Duration: 30 day, Stop date: 01/20/15 6:07:00 Notes: Do not exceed 4 gm/day. (Same as: Tylenol) Start Date: 12/21/14 Stop Date: 12/25/14 Status: Discontinued Advair Diskus 500 mcg-50 mcg inhalation powder 1 puff, Route: INHALATION, Drug Form: AERO, Dosing Weight 51.364, kg, BID, Start date: 12/21/14 17:00:00, Duration: 30 day, Stop date: 01/20/15 9:00:00 Start Date: 12/21/14 Stop Date: 12/21/14 Status: Deleted Advair Diskus 500 mcg-50 mcg inhalation powder 1 puff, INHALATION, BID, # 28 ea, 0 Refill(s) Start Date: 12/21/14 Status: Ordered Astelin 137 mcg/inh nasal spray 2 inhalation, Route: NASAL, Drug Form: SPRY, Dosing Weight 51.364, kg, PRN, PRN as needed for allergy symptoms, Start date: 12/21/14 14:57:00, Duration: 30 day, Stop date: 01/20/15 14:56:00 Notes: (azelastine 137 microgram/inh 34 ml nasal SPR) Non-formulary drug. Same As: Astelin) Start Date: 12/21/14 Stop Date: 12/25/14 Status: Discontinued Augmentin 875 mg oral tablet 875 mg = 1 tab, PO, Q12H, # 14 tab, 0 Refill(s) Start Date: 12/25/14 Stop Date: 01/01/15 Status: Ordered Boniva 150 mg oral tablet 150 mg, 1 tab, Route: PO, Drug form: TAB, ONCE, Dosing Weight 51.364, kg, Start date: 12/21/14 15:07:00, Stop date: 12/21/14 15:07:00 Start Date: 12/21/14 Stop Date: 12/21/14 Status: Completed budesonide-formoterol 160 mcg-4.5 mcg/inh inhalation aerosol with adapter 2 inhalation, Route: INHALATION, Drug Form: AERO/A, Q12H, Start date: 12/21/14 2 1:00:00, Duration: 30 day, Stop date: 01/20/15 9:00:00 Notes: (Same as: Symbicort) Start Date: 12/21/14 Stop Date: 12/25/14 Status: Discontinued cefepime + Sodium Chloride 0.9% IV 100 mL 2 gm, Route: IVPB, Drug form: INJ, ONCE, Dosing Weight 51.364, kg, Priority: STA T, Start date: 12/21/14 3:14:00, Stop date: 12/21/14 3:14:00 Notes: (Same as: Maxipime) MEDICATION WASTE Product Size: 2000 mgProduc t Wasted: ___ mg Start Date: 12/21/14 Stop Date: 12/21/14 Status: Completed cefepime + Sodium Chloride 0.9% IV 100 mL 1 gm, Route: IVPB, Drug form: INJ, [id number], Dosing Weight 51.364, kg, Priority: S TAT, Start date: 12/21/14 6:08:00, Duration: 30 day, Stop date: 01/19/15 20:00:0 0 Notes: (Same As: Maxipime) MEDICATION WASTE Product Size: 1000 mgProduc t Wasted: ___ mg Start Date: 12/21/14 Stop Date: 12/25/14 Status: Discontinued Citracal + D 315 mg-250 intl units oral tablet 2 tab, Route: PO, Drug Form: TAB, Dosing Weight 51.364, kg, Daily, Start date: 0 12/21/14 16:00:00, Duration: 30 day, Stop date: 01/20/15 9:00:00 Notes: (Same As: Citracal Caplets Plus D) Start Date: 12/21/14 Stop Date: 12/25/14 Status: Discontinued Diovan 40 mg, 1 tab, Route: PO, Drug form: TAB, Daily, Dosing Weight 51.364, kg, Start date: 12/22/14 9:00:00, Duration: 30 day, Stop date: 01/20/15 9:00:00 Notes: Same as Diovan Start Date: 12/22/14 Stop Date: 12/25/14 Status: Discontinued Dulcolax Laxative 5 mg, 1 tab, Route: PO, Drug form: ECTAB, Q6H, Dosing Weight 51.364, kg, PRN Con stipation, Start date: 12/24/14 10:55:00, Duration: 30 day, Stop date: 01/23/15 10:54:00 Notes: (Same As: Dulcolax, Correctol) (Do Not Crush) "Do Not Crush" Start Date: 12/24/14 Stop Date: 12/25/14 Status: Discontinued enoxaparin 40 mg, 0.4 mL, Route: SUB-Q, Drug form: INJ, [id number], Dosing Weight 51.364, kg, Start date: 12/21/14 17:00:00, Duration: 30 day, Stop date: 01/19/15 17:00:00 Notes: (Same as: Lovenox) Start Date: 12/21/14 Stop Date: 12/25/14 Status: Discontinued fluticasone nasal 0.05 mg/inh spray 1 spray, Route: NASAL, Drug Form: SPRY, Dosing Weight 51.364, kg, PRN, PRN Conge stion, Start date: 12/21/14 15:00:00, Duration: 30 day, Stop date: 01/20/15 14:5 9:00 Notes: (Same as: Flonase) Start Date: 12/21/14 Stop Date: 12/25/14 Status: Discontinued hydrALAZINE 10 mg, 0.5 mL, Route: IV, Drug form: INJ, Q6H, Dosing Weight 51.364, kg, PRN Yasmine vated BP, Priority: Routine, Start date: 12/23/14 15:00:00, Duration: 30 day, St op date: 01/22/15 14:59:00 Notes: (Same as: Apresoline)Push over 5 minutes Start Date: 12/23/14 Stop Date: 12/25/14 Status: Discontinued lactobacillus acidophilus 1 cap, Route: PO, Drug Form: CAP, Dosing Weight 51.364, kg, Daily, Start date: 0 12/22/14 9:00:00, Duration: 30 day, Stop date: 01/20/15 9:00:00 Start Date: 12/22/14 Stop Date: 12/21/14 Status: Deleted lactobacillus rhamnosus GG 1 cap, Route: PO, Drug Form: CAP, Daily, Start date: 12/22/14 9:00:00, Duration: 30 day, Stop date: 01/20/15 9:00:00 Notes: Same as Culturelle Start Date: 12/22/14 Stop Date: 12/25/14 Status: Discontinued Levaquin 500 mg, 100 mL, Route: IVPB, Drug form: INJ, [id number], Dosing Weight 51.364, kg, Start date: 12/23/14 22:00:00, Duration: 30 day, Stop date: 01/21/15 22:00:00 Notes: (Same as:Levaquin) Start Date: 12/23/14 Stop Date: 12/25/14 Status: Discontinued Levaquin 750 mg oral tablet 750 mg = 1 tab, PO, Q24H, # 7 tab, 0 Refill(s) Start Date: 12/25/14 Stop Date: 01/01/15 Status: Ordered levothyroxine 75 microgram, 1 tab, Route: PO, Drug form: TAB, [id number], Dosing Weight 51.364, kg , Start date: 12/22/14 6:30:00, Duration: 30 day, Stop date: 01/20/15 6:30:00 Notes: Take 1 hour before or 2 hours after meal; Enteral feeds may interefere wi th the absorption of this medication. (Same as:Synthroid, Levothroid) Start Date: 12/22/14 Stop Date: 12/25/14 Status: Discontinued MiraLax 17 gm, 1 pkt, Route: PO, Drug form: PWDR, ONCE, Dosing Weight 51.364, kg, Start date: 12/24/14 10:55:00, Duration: 1 doses or times, Stop date: 12/24/14 10:55:0 0 Notes: Dissolve in 8 oz of water or juice.(Same as: Miralax) Start Date: 12/24/14 Stop Date: 12/24/14 Status: Completed morphine Sulfate 2 mg, 1 mL, Route: IVP, Drug form: INJ, Q3H, Dosing Weight 51.364, kg, PRN Pain Score 4-6, Start date: 12/21/14 6:08:00, Duration: 30 day, Stop date: 01/20/15 6 :07:00 Notes: (Same as:MORPhine Sulfate) Start Date: 12/21/14 Stop Date: 12/25/14 Status: Discontinued morphine Sulfate 4 mg, 1 mL, Route: IVP, Drug form: INJ, ONCE, Dosing Weight 51.364, kg, Priority : STAT, Start date: 12/21/14 2:53:00, Stop date: 12/21/14 2:53:00 Notes: (Same as:MORPhine Sulfate) Start Date: 12/21/14 Stop Date: 12/21/14 Status: Completed multivitamin 1 tab, Route: PO, Drug Form: TAB, Dosing Weight 51.364, kg, Daily, Start date: 0 12/22/14 9:00:00, Duration: 30 day, Stop date: 01/20/15 9:00:00 Notes: (Same as:One Tab Daily, Tab-A-Nadir + Beta Carotene) Give with food. Start Date: 12/22/14 Stop Date: 12/25/14 Status: Discontinued Speedwell 5/325 oral tablet 1 tab, Route: PO, Drug Form: TAB, Dosing Weight 51.364, kg, Q6H, PRN See Nurse's Notes, Start date: 12/21/14 15:31:00, Duration: 30 day, Stop date: 01/20/15 15: 30:00 Notes: (Same as: Speedwell 325/5) Do not exceed 4gm/day of acetaminophen. Start Date: 12/21/14 Stop Date: 12/25/14 Status: Discontinued omega-3 polyunsaturated fatty acids 1,000 mg, 1 cap, Route: PO, Drug form: CAP, Daily, Dosing Weight 51.364, kg, Sta rt date: 12/22/14 9:00:00, Duration: 30 day, Stop date: 01/20/15 9:00:00 Notes: (Same as: MaxEPA, [place] 3 fish oil )Non-Formulary Drug Start Date: 12/22/14 Stop Date: 12/25/14 Status: Discontinued ondansetron 4 mg, 2 mL, Route: IVP, Drug form: INJ, Q8H, Dosing Weight 51.364, kg, PRN Nause a & Vomiting, Start date: 12/21/14 6:08:00, Duration: 30 day, Stop date: 01/20/15 6:07:00 Notes: (Same as: Zofran) MEDICATION WASTE Product Size: 4 mgProduct Was bradly: ___ mg Start Date: 12/21/14 Stop Date: 12/25/14 Status: Discontinued Osteo Bi-Flex 1 tab, Route: PO, Dosing Weight 51.364, kg, Daily, Start date: 12/22/14 9:00:00, Duration: 30 day, Stop date: 01/20/15 9:00:00 Start Date: 12/22/14 Stop Date: 12/21/14 Status: Deleted Protonix 40 mg, 1 tab, Route: PO, Drug form: ECTAB, Before Breakfast, Dosing Weight 51.36 4, kg, Start date: 12/22/14 7:30:00, Duration: 30 day, Stop date: 01/20/15 7:30: 00 Notes: Tablet should not be chewed or crushed.(Same as: Protonix) Start Date: 12/22/14 Stop Date: 12/25/14 Status: Discontinued Saline Flush 0.9% 10 ml, Route: IVP, Drug Form: INJ, Dosing Weight 51.364, kg, PRN, PRN Line Flush , Start date: 12/21/14 6:08:00, Duration: 30 day, Stop date: 01/20/15 6:07:00 Notes: Same as: BD Posiflush Sterile Start Date: 12/21/14 Stop Date: 12/25/14 Status: Discontinued Saline Flush 0.9% 5 mL, Route: IV, Drug Form: INJ, Dosing Weight 51.364, kg, QSHIFT, Start date: 0 12/21/14 8:00:00, Duration: 30 day, Stop date: 01/20/15 0:00:00 Notes: Same as: BD Posiflush Sterile Start Date: 12/21/14 Stop Date: 12/25/14 Status: Discontinued simvastatin 20 mg, 1 tab, Route: PO, Drug form: TAB, Bedtime, Dosing Weight 51.364, kg, Star t date: 12/21/14 21:00:00, Duration: 30 day, Stop date: 01/19/15 21:00:00 Notes: (Same as: Zocor) Start Date: 12/21/14 Stop Date: 12/25/14 Status: Discontinued Sodium Chloride 0.9% (Bolus) IV 1,000 mL, 1000 ml/hr, Infuse Over: 1 hr, Route: IV, 1,000, Drug form: INJ, ONCE, Priority: STAT, Dosing Weight 51.364 kg, Start date: 12/21/14 3:12:00, Duration: 1 doses or times, Stop date: 12/21/14 3:12:00 Start Date: 12/21/14 Stop Date: 12/21/14 Status: Completed Sodium Chloride 0.9% IV 1,000 mL 1,000 mL, Rate: 125 ml/hr, Infuse over: 8 hr, Route: IV, Dosing Weight 51.364 kg , Total Volume: 1,000, Start date: 12/21/14 6:08:00, Duration: 30 day, Stop date : 01/20/15 6:07:00 Start Date: 12/21/14 Stop Date: 12/23/14 Status: Discontinued Spiriva 18 mcg inhalation capsule 18 microgram, 1 inhalation, Route: INHALATION, Drug form: CAP, Daily, Dosing Dejuan ght 51.364, kg, Start date: 12/22/14 9:00:00, Duration: 30 day, Stop date: 01/20 9:00:00 Notes: (Same As: Spiriva) Start Date: 12/22/14 Stop Date: 12/25/14 Status: Discontinued TamiFLU 75 mg, 1 cap, Route: PO, Drug form: CAP, [id number], Dosing Weight 51.364, kg, CrCl > 60 ml/hr, Start date: 12/21/14 20:00:00, Duration: 5 day, Stop date: 12/26/14 8:00:00 Notes: Take with food.Same as: Tamiflu) Start Date: 12/21/14 Stop Date: 12/22/14 Status: Discontinued TamiFLU 75 mg, Route: PO, Drug form: CAP, [id number], Dosing Weight 51.364, kg, CrCl > 60 ml/hr, Start date: 12/21/14 8:00:00, Duration: 5 day, Stop date: 12/25/14 20 :00:00 Start Date: 12/21/14 Stop Date: 12/21/14 Status: Deleted TamiFLU 75 mg, Route: PO, Drug form: CAP, ONCE, Dosing Weight 51.364, kg, CrCl > 60 ml/hr, Start date: 12/21/14 7:35:00, Stop date: 12/21/14 7:35:00 Start Date: 12/21/14 Stop Date: 12/21/14 Status: Completed Tylenol 650 mg, 2 tab, Route: PO, Drug form: TAB, ONCE, Dosing Weight 51.364, kg, Priori ty: STAT, Start date: 12/21/14 2:53:00, Stop date: 12/21/14 2:53:00 Notes: Do not exceed 4 gm/day. (Same as: Tylenol) Start Date: 12/21/14 Stop Date: 12/21/14 Status: Completed vancomycin 1 gm, 200 mL, Route: IVPB, Drug form: INJ, [id number], Dosing Weight 51.364, kg, St art date: 12/23/14 22:00:00, Duration: 1 doses or times, Stop date: 12/23/14 22: 00:00 Start Date: 12/23/14 Stop Date: 12/23/14 Status: Completed vancomycin + Sodium Chloride 0.9% IV 250 mL 750 mg, Route: IVPB, Q24H, Dosing Weight 51.364, kg, Start date: 12/24/14 10:00: 00, Duration: 30 day, Stop date: 01/22/15 10:00:00 Notes: (Same As: Vancocin)Infusion rate< 1000 mg: infuse over 1 [id number] - 1500 mg: infuse over 1.5 [id number] - 2000 mg: infuse over 2 hours> 2001 mg: infuse over 2.5 hours MEDICATION WASTE Product Size: 1000 mgProduct Wasted: ___ mg Start Date: 12/24/14 Stop Date: 12/25/14 Status: Discontinued Ventolin HFA 90 mcg/inh inhalation aerosol with adapter 2 puff, Route: INHALATION, Drug Form: AERO/A, Dosing Weight 51.364, kg, QID, PRN Wheezing, Start date: 12/21/14 15:34:00, Duration: 30 day, Stop date: 01/20/15 15:33:00 Notes: Albuterol 90 microgram/inh 8gm HFA Same as: Ventolin, Proventil Start Date: 12/21/14 Stop Date: 12/25/14 Status: Discontinued Vitamin C 1,000 mg, 2 tab, Route: PO, Drug form: TAB, Daily, Dosing Weight 51.364, kg, Sta rt date: 12/21/14 16:00:00, Duration: 30 day, Stop date: 01/20/15 9:00:00 Notes: (Same as: Vitamin C) Start Date: 12/21/14 Stop Date: 12/25/14 Status: Discontinued Xopenex 0.63 mg, 3 mL, Route: NEB, Drug form: SOLN, Q8H, Dosing Weight 51.364, kg, PRN S ee Respiratory Notes, Start date: 12/21/14 15:00:00, Duration: 30 day, Stop date : 01/20/15 14:59:00 Notes: SEE RT DOCUMENTATION (Same as:Xopenex)Non-Formulary Start Date: 12/21/14 Stop Date: 12/25/14 Status: Discontinued Zofran 4 mg, 2 mL, Route: IVP, Drug form: INJ, ONCE, Dosing Weight 51.364, kg, Priority : STAT, Start date: 12/21/14 2:52:00, Stop date: 12/21/14 2:52:00 Notes: (Same as: Zofran) MEDICATION WASTE Product Size: 4 mgProduct Was bradly: ___ mg Start Date: 12/21/14 Stop Date: 12/21/14 Status: Completed Results ELECTROLYTES 1 2 3 Most recent to oldest [Reference Range]: 134 mEq/L *LOW* (12/25/14 6:47 AM) 134 mEq/L *LOW* (12/24/14 5:50 AM) 134 mEq/L *LOW* (12/23/14 4:28 AM) Sodium Lvl [135-145 mEq/L] 3.8 mEq/L (12/25/14 6:47 AM) 3.5 mEq/L (12/24/14 5:50 AM) 3.5 mEq/L (12/23/14 4:28 AM) Potassium Lvl [3.5-5.1 mEq/L] 102 mEq/L (12/25/14 6:47 AM) 101 mEq/L (12/24/14 5:50 AM) 102 mEq/L (12/23/14 4:28 AM) Chloride Lvl [95-109 mEq/L] 25 mEq/L (12/25/14 6:47 AM) 24 mEq/L (12/24/14 5:50 AM) 22 mEq/L *LOW* (12/23/14 4:28 AM) CO2 [24-32 mEq/L] 10.8 mEq/L (12/25/14 6:47 AM) 12.5 mEq/L (12/24/14 5:50 AM) 13.5 mEq/L (12/23/14 4:28 AM) AGAP [10.0-20.0 mEq/L] CHEM PANEL 1 2 3 Most recent to oldest [Reference Range]: 0.6 mg/dL (12/25/14 6:47 AM) 0.6 mg/dL (12/24/14 5:50 AM) 0.6 mg/dL (12/23/14 4:28 AM) Creatinine Lvl [0.5-1.4 mg/dL] 93 mL/min/1.73m2 1 *NA* (12/25/14 6:47 AM) 93 mL/min/1.73m2 2 *NA* (12/24/14 5:50 AM) 93 mL/min/1.73m2 3 *NA* (12/23/14 4:28 AM) eGFR 5 mg/dL *LOW* (12/25/14 6:47 AM) 5 mg/dL *LOW* (12/24/14 5:50 AM) 5 mg/dL *LOW* (12/23/14 4:28 AM) BUN [7-22 mg/dL] 8 (12/24/14 5:50 AM) 8 (12/23/14 4:28 AM) 20 (12/22/14 6:06 AM) B/C Ratio [6-25] 88 mg/dL 4 (12/25/14 6:47 AM) 90 mg/dL 5 (12/24/14 5:50 AM) 85 mg/dL 6 (12/23/14 4:28 AM) Glucose Lvl [70-99 mg/dL] 5.4 g/dL *LOW* (12/24/14 5:50 AM) 5.2 g/dL *LOW* (12/23/14 4:28 AM) 5.0 g/dL *LOW* (12/22/14 6:06 AM) Total Protein [6.4-8.4 g/dL] 2.7 g/dL *LOW* (12/24/14 5:50 AM) 2.7 g/dL *LOW* (12/23/14 4:28 AM) 2.7 g/dL *LOW* (12/22/14 6:06 AM) Albumin Lvl [3.5-5.0 g/dL] 2.7 g/dL (12/24/14 5:50 AM) 2.5 g/dL (12/23/14 4:28 AM) 2.3 g/dL (12/22/14 6:06 AM) Globulin [2.0-4.0 g/dL] 1.0 (12/24/14 5:50 AM) 1.1 (12/23/14 4:28 AM) 1.2 (12/22/14 6:06 AM) A/G Ratio [0.7-1.6] 8.4 mg/dL *LOW* (12/25/14 6:47 AM) 8.2 mg/dL *LOW* (12/24/14 5:50 AM) 8.1 mg/dL *LOW* (12/23/14 4:28 AM) Calcium Lvl [8.5-10.5 mg/dL] 16 unit/L (12/24/14 5:50 AM) 18 unit/L (12/23/14 4:28 AM) 21 unit/L (12/22/14 6:06 AM) ALT [0-65 unit/L] 15 unit/L (12/24/14 5:50 AM) 13 unit/L (12/23/14 4:28 AM) 14 unit/L (12/22/14 6:06 AM) AST [0-37 unit/L] 88 unit/L (12/24/14 5:50 AM) 86 unit/L (12/23/14 4:28 AM) 73 unit/L (12/22/14 6:06 AM) Alk Phos [39-136 unit/L] 0.6 mg/dL (12/24/14 5:50 AM) 0.6 mg/dL (12/23/14 4:28 AM) 0.7 mg/dL (12/22/14 6:06 AM) Bili Total [0.2-1.3 mg/dL] 143 unit/L (12/21/14 3:43 AM) Lipase Lvl [73-393 unit/L] 1.1 mMol/L (12/21/14 3:43 AM) Lactic Acid Lvl [0.5-2.2 mMol/L] 0.14 ng/mL *HI* (12/21/14 4:58 PM) Procalcitonin Lvl [0.00-0.10 ng/mL] 1Result Comment: The eGFR is calculated using [...] values reflect the clinical guidelines of the [place] [employer]. 5Interpretive Data: Adult reference range values reflect the clinical guidelines of the [place] [employer]. 6Interpretive Data: Adult reference range values reflect the clinical guidelines of the [place] [employer]. URINE AND STOOL 1 2 3 Most recent to oldest [Reference Range]: Clear (12/21/14 5:46 AM) UA Turbidity [Clear] Yellow *NA* (12/21/14 5:46 AM) UA Color [Yellow] 6.0 (12/21/14 5:46 AM) UA pH [5.0-8.0] 1.015 (12/21/14 5:46 AM) UA Spec Grav [<=1.030] Negative mg/dL (12/21/14 5:46 AM) UA Glucose [Negative mg/dL] Negative (12/21/14 5:46 AM) UA Blood [Negative] Negative mg/dL *NA* (12/21/14 5:46 AM) UA Ketones [Negative mg/dL] Negative mg/dL (12/21/14 5:46 AM) UA Protein [Negative mg/dL] 1.0 EU/dL (12/21/14 5:46 AM) UA Urobilinogen [0.1-1.0 EU/dL] Negative *NA* (12/21/14 5:46 AM) UA Bili [Negative] Negative (12/21/14 5:46 AM) UA Leuk Est [Negative] Negative (12/21/14 5:46 AM) UA Nitrite [Negative] 0-2 /HPF (12/21/14 5:46 AM) UA WBC [None Seen /HPF] 0-2 /HPF (12/21/14 5:46 AM) UA RBC [0-2 /HPF] Occasional /HPF (12/21/14 5:46 AM) UA Bacteria [None Seen /HPF] Rare /LPF (12/21/14 5:46 AM) UA Sq Epi [Few /LPF] None Seen (12/21/14 5:46 AM) UA Mucus [None Seen] Performed (12/21/14 5:46 AM) Micro? HEMATOLOGY 1 2 3 Most recent to oldest [Reference Range]: 4.9 K/CMM (12/25/14 6:47 AM) 5.0 K/CMM (12/24/14 5:50 AM) 7.2 K/CMM (12/23/14 4:28 AM) WBC [3.7-10.4 K/CMM] 3.26 M/CMM *LOW* (12/25/14 6:47 AM) 3.19 M/CMM *LOW* (12/24/14 5:50 AM) 3.09 M/CMM *LOW* (12/23/14 4:28 AM) RBC [4.20-5.40 M/CMM] 9.5 g/dL *LOW* (12/25/14 6:47 AM) 9.3 g/dL *LOW* (12/24/14 5:50 AM) 8.8 g/dL *LOW* (12/23/14 4:28 AM) Hgb [12.0-16.0 g/dL] 28.2 % *LOW* (12/25/14 6:47 AM) 27.3 % *LOW* (12/24/14 5:50 AM) 26.9 % *LOW* (12/23/14 4:28 AM) Hct [36.0-48.0 %] 86.6 fL (12/25/14 6:47 AM) 85.7 fL (12/24/14 5:50 AM) 87.1 fL (12/23/14 4:28 AM) MCV [80.0-98.0 fL] 29.1 pg (12/25/14 6:47 AM) 29.0 pg (12/24/14 5:50 AM) 28.6 pg (12/23/14 4:28 AM) MCH [27.0-31.0 pg] 33.6 g/dL (12/25/14 6:47 AM) 33.8 g/dL (12/24/14 5:50 AM) 32.8 g/dL (12/23/14 4:28 AM) MCHC [32.0-36.0 g/dL] 14.6 % *HI* (12/25/14 6:47 AM) 14.4 % (12/24/14 5:50 AM) 14.6 % *HI* (12/23/14 4:28 AM) RDW [11.5-14.5 %] 362 K/CMM (12/25/14 6:47 AM) 301 K/CMM (12/24/14 5:50 AM) 248 K/CMM (12/23/14 4:28 AM) Platelet [133-450 K/CMM] 8.2 fL (12/25/14 6:47 AM) 8.5 fL (12/24/14 5:50 AM) 8.6 fL (12/23/14 4:28 AM) MPV [7.4-10.4 fL] 55.9 % (12/25/14 6:47 AM) 66.4 % (12/24/14 5:50 AM) 78.4 % *HI* (12/23/14 4:28 AM) Segs [45.0-75.0 %] 30.7 % (12/25/14 6:47 AM) 22.4 % (12/24/14 5:50 AM) 15.0 % *LOW* (12/23/14 4:28 AM) Lymphocytes [20.0-40.0 %] 7.6 % (12/25/14 6:47 AM) 7.7 % (12/24/14 5:50 AM) 3.7 % (12/23/14 4:28 AM) Monocytes [2.0-12.0 %] 5.2 % *HI* (12/25/14 6:47 AM) 2.8 % (12/24/14 5:50 AM) 2.4 % (12/23/14 4:28 AM) Eosinophils [0.0-4.0 %] 0.6 % (12/25/14 6:47 AM) 0.7 % (12/24/14 5:50 AM) 0.5 % (12/23/14 4:28 AM) Basophils [0.0-1.0 %] 2.7 K/CMM (12/25/14 6:47 AM) 3.3 K/CMM (12/24/14 5:50 AM) 5.7 K/CMM (12/23/14 4:28 AM) Segs-Bands # [1.5-8.1 K/CMM] 1.5 K/CMM (12/25/14 6:47 AM) 1.1 K/CMM (12/24/14 5:50 AM) 1.1 K/CMM (12/23/14 4:28 AM) Lymphocytes # [1.0-5.5 K/CMM] 0.4 K/CMM (12/25/14 6:47 AM) 0.4 K/CMM (12/24/14 5:50 AM) 0.3 K/CMM (12/23/14 4:28 AM) Monocytes # [0.0-0.8 K/CMM] 0.3 K/CMM (12/25/14 6:47 AM) 0.1 K/CMM (12/24/14 5:50 AM) 0.2 K/CMM (12/23/14 4:28 AM) Eosinophils # [0.0-0.5 K/CMM] 0.0 K/CMM (12/25/14 6:47 AM) 0.0 K/CMM (12/24/14 5:50 AM) 0.0 K/CMM (12/23/14 4:28 AM) Basophils # [0.0-0.2 K/CMM] Normal (12/21/14 4:08 AM) RBC Morph Normal (12/21/14 4:08 AM) Plt Morph 33.3 seconds 7 (12/21/14 4:58 PM) PTT [22.9-35.8 seconds] 7Interpretive Data: Heparin Therapeutic Range: 57 - 92 Seconds MOLECULAR DIAGNOSTIC 1 2 3 Most recent to oldest [Reference Range]: Flocked LUMBER MARKER Swab (12/21/14 5:19 PM) Source Respiratory Panel PCR Negative (12/21/14 5:19 PM) Influenza A PCR [Negative] Negative (12/21/14 5:19 PM) Influenza B PCR [Negative] Negative 8 (12/21/14 5:19 PM) RSV PCR [Negative] 8Interpretive Data: GenZenDocesse ProFlu plus assay is a multiplex real-time [...] assay utilizes FDA cleared IVD reagents for Real-Time nucleic acid amplification (PCR). Performance characteristics have been verified by the [facility] within [facility]. The [facility] is authorized under the Clinical Laboratory Improvement Amendments of 1988 (CLIA-88) to perform high complexity testing. BACTERIAL - SEROLOGY 1 2 3 Most recent to oldest [Reference Range]: Negative (12/24/14 12:25 AM) U S pneumo Ag [Negative] VIRAL - SEROLOGY 1 2 3 Most recent to oldest [Reference Range]: Negative (12/21/14 3:43 AM) Influ A [Negative] Negative 9 (12/21/14 3:43 AM) Influ B [Negative] 9Interpretive Data: Influenza A&B Antigen: Due to the low sensitivity of this test a negative result does not exclude influ hayley virus infection. A diagnosis of influenza should be considered based on a p atient's clinical presentation and empiric antiviral treatment should be conside red, if indicated. If more conclusive testing is desired, follow-up confirmatory testing with either viral culture or PCR is warranted. Immunizations Vaccine Date Refusal Reason Hx pneumococcal vaccine 11/12/11 influenza virus vaccine, inactivated 07/02/14 Procedures Procedure Date Related Diagnosis Body Site Bladder operation Cholecystectomy Hernia repair Hysterectomy Insertion of Port-a-cath Social History Social History [...]
--- OUTSIDE RECORDS SUMMARY | 2020-04-14 11:59 | XMS REPORT | Summary of Care ---
Author Author [facility] Organization [facility] Address Unknown Phone Unavailable Encounter TOYIN Mcdowell(ANT) [id number] Date(s): 11/07/15 - 11/07/15 [facility] [address] [place] [address]- Discharge Disposition: Home Attending Physician: Evin Blanc MD Referring Physician: Evin Blanc MD Vital [...] Active syndrome9, 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/01/11 Active [id number], 12 Sprain of foot13, 14 01/01/11 Active [...] operation Cholecystectomy Hernia repair Hysterectomy Insertion of [id number] 1left side. oct 2014 placed Social History [...]
--- OUTSIDE RECORDS SUMMARY | 2020-04-14 11:59 | XMS REPORT | Summary of Care ---
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) HTN - Active Hypertension(Confirm ed) Hyponatremia(Confirm Active ed) Hypothyroidism(Confi Active rmed) Hysterectomy(Confirm Active ed) Uterine Active prolapse(Confirmed) Allergies, Adverse Reactions, Alerts Substance Reaction Severity Status "RAW SHRIMP" Active NKDA Active Medications No data available for this section Medications Administered During Your Visit No data available for this section Immunizations No data available for this section Social History Social History Type Response Substance Abuse Use: None Employment/School Status: Employed Alcohol Use: Past Smoking Status Never smoker, Exposure to T obacco Smoke None, Cigarette Smoking Last 365 Days No, Reg Smoking Cessation Counseli ng No
--- OUTSIDE RECORDS SUMMARY | 2020-04-14 11:59 | XMS REPORT | Summary of Care ---
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 oct 2014 placed Social History [...]
--- OUTSIDE RECORDS SUMMARY | 2020-04-14 11:59 | XMS REPORT | Summary of Care ---
Author Author [facility] Organization [facility] Address Unknown Phone Unavailable Encounter HQ Jeremias(FIN) [id number] Date(s): 08/15/15 - 08/15/15 [facility] [address] [place] [address]- Discharge Disposition: Home Attending Physician: Evin Blanc MD Admitting Physician: Evin Blanc MD Referring Physician: Evin [...] Active syndrome9, 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/01/11 Active [id number], 12 Sprain of foot13, 14 01/01/11 Active [...] operation Cholecystectomy Hernia repair Hysterectomy Insertion of [id number] 1left side. oct 2014 placed Social History [...]
--- OUTSIDE RECORDS SUMMARY | 2020-04-14 11:59 | XMS REPORT | Summary of Care ---
Author Organization Unknown Address Unknown Phone Unavailable Encounter Dates Location Diagnoses Discharge Providers Disposition 11/15/2013 [facility] Outpatient Imaging Home Rob Winslow - [place] Physician, Non Asso ciated 11/15/2013 [address], [place] [address]- , [facility] Reason for Visit V76.12 - SCREEN MAMMOGRA Problem List Condition Effective Dates Status Health Status Informan t Asthma(Confirmed) Active Chronic obstructive Active pulmonary disease(Confirmed) HTN - Active Hypertension(Confirm ed) Uterine Active prolapse(Confirmed) Allergies, Adverse Reactions, Alerts Status Substance Reaction Severity Active "RAW SHRIMP" Active NKDA Medications No data available for this section Medications Administered During Your Visit No data available for this section Immunizations No data available for this section Social History Social History Type Response
--- OUTSIDE RECORDS SUMMARY | 2020-04-14 11:59 | XMS REPORT | Summary of Care ---
Author Organization Unknown Address Unknown Phone Unavailable Encounter HQ Nella_kenna(ANT) [id number] Date(s): 10/09/14 - 10/09/[address] Discharge Disposition: Home Physician Attending: Rob Winslow MD Physician_Referring: Rob Winslow MD Reason for Visit RIGHT BREAST MASS Problem List Condition Effective Dates Status Health [...]
--- OUTSIDE RECORDS SUMMARY | 2020-04-14 11:59 | XMS REPORT | Summary of Care ---
Author Organization Unknown Address Unknown Phone Unavailable Encounter HQ Encntr_kenna(ANT) [id number] Date(s): 01/12/14 - 01/12/[address] Discharge Disposition: Home Physician Attending: Wandy Campuzano MD Physician_Referring: Wandy Campuzano MD Reason for Visit DIVERTICULOSIS Problem List Condition Effective Dates Status Health [...]
--- OUTSIDE RECORDS SUMMARY | 2020-04-14 11:59 | XMS REPORT | Summary of Care ---
Author Author [facility] Organization [facility] Address Unknown Phone Unavailable Encounter TOYIN Mcdowell(ANT) [id number] Date(s): 12/13/15 - 12/13/15 [facility] [address] [place] [address]- [phone] Discharge Disposition: Home Attending Physician: Eduin Schreiber MD Admitting Physician: Eduin Schreiber MD Referring Physician: Eduin Schreiber MD Vital Signs No data available for [...] Active syndrome9, 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/01/11 Active [id number], 12 Sprain of foot13, 14 01/01/11 Active [...] Food Shrimp Active NKDA Active Medications No Known Medications Results No data available for this section Immunizations Vaccine Date Refusal Reason Hx pneumococcal vaccine 11/12/11 influenza virus vaccine, inactivated 07/02/14 Procedures Procedure Date Related Diagnosis Body Site Bladder operation Cholecystectomy Hernia repair Hysterectomy Insertion of [id number]-b-[id number] 1left side. oct 2014 placed Social History [...]
--- OUTSIDE RECORDS SUMMARY | 2020-04-14 11:59 | XMS REPORT | Summary of Care ---
Author Author [facility] Organization [facility] Address Unknown Phone Unavailable Encounter HQ Jeremias(FIN) [id number] Date(s): 08/05/15 - 08/05/15 [facility] [address] [place] [address]- Discharge Disposition: Home Attending Physician: Evin Blanc [...] Active syndrome9, 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/01/11 Active [id number], 12 Sprain of foot13, 14 01/01/11 Active [...] operation Cholecystectomy Hernia repair Hysterectomy Insertion of [id number] 1left side. oct 2014 placed Social History [...]
--- OUTSIDE RECORDS SUMMARY | 2020-04-14 11:59 | XMS REPORT | Summary of Care ---
Author Organization Unknown Address Unknown Phone Unavailable Encounter HQ Jeremias(ANT) [id number] Date(s): 08/13/14 - 08/15/[address] Discharge Disposition: Home Physician Attending: Carrington Hernández MD Physician Admitting: Carrignton Hernández MD Reason for Visit SEVERE HYPONATREMIA Vital Signs 1 2 3 Most recent to oldest [Reference Range]: 167.64 cm (08/13/14 7:32 PM) 167.64 cm (08/13/14 2:36 PM) Height 98.8 DegF (08/15/14 7:42 AM) 98 DegF (08/15/14 4:00 AM) 97.6 DegF (08/14/14 7:44 PM) Temperature Oral [96.4-99.1 DegF] 130 mmHg (08/15/14 11:00 AM) 132 mmHg (08/15/14 9:00 AM) 157 mmHg *HI* (08/15/14 7:09 AM) Systolic Blood Pressure [90-140 mmHg] 63 mmHg (08/15/14 11:00 AM) 71 mmHg (08/15/14 9:00 AM) 71 mmHg (08/15/14 7:09 AM) Diastolic Blood Pressure [60-90 mmHg] 22 BRMIN *HI* (08/15/14 12:00 PM) 22 BRMIN *HI* (08/15/14 11:00 AM) 19 BRMIN (08/15/14 10:00 AM) Respiratory Rate [14-20 BRMIN] 79 bpm (08/13/14 2:36 PM) Peripheral Pulse Rate [60-100 bpm] 54.2 kg (08/13/14 7:32 PM) 49.716 kg (08/13/14 2:36 PM) Weight 19.29 m2 (08/13/14 7:32 PM) 17.69 m2 (08/13/14 2:36 PM) Body Mass Index Problem List Condition [...] Status "RAW SHRIMP" Active NKDA Active Medications acetaminophen-hydrocodone 325 mg-5 mg oral tablet 1 tab, Route: PO, Drug Form: TAB, Q8H, PRN Pain Score 4-6, Start date: 08/13/14 20:52:00, Duration: 30 day, Stop date: 09/12/14 20:51:00 Notes: (Same as: [place] 325/5) Do not exceed 4gm/day of acetaminophen. Start Date: 08/13/14 Stop Date: 08/15/14 Status: Discontinued acetaminophen-hydrocodone 325 mg-5 mg oral tablet 0.5 tab, Route: PO, Drug Form: TAB, Q8H, PRN Pain Score 1-3, Start date: 4 20:52:00, Duration: 30 day, Stop date: 09/12/14 20:51:00 Notes: (Same as: [place] 325/5) Do not exceed 4gm/day of acetaminophen. Start Date: 08/13/14 Stop Date: 08/15/14 Status: Discontinued Advair Diskus 500 mcg-50 mcg inhalation powder 1 puff, Route: INHALATION, Drug Form: AERO, Dosing Weight 49.716, kg, BID, Start date: 08/14/14 9:00:00, Duration: 30 day, Stop date: 09/12/14 17:00:00 Start Date: 08/14/14 Stop Date: 08/13/14 Status: Deleted Boniva 150 mg oral tablet 150 mg = 1 tab, PO, qMonth, # 1 tab, 0 Refill(s) Start Date: 08/13/14 Status: Ordered budesonide-formoterol 160 mcg-4.5 mcg/inh inhalation aerosol with adapter 2 inhalation, Route: INHALATION, Drug Form: AERO/A, BID, Start date: 08/14/14 9: 00:00, Duration: 30 day, Stop date: 09/12/14 17:00:00 Notes: (Same as: Symbicort) Start Date: 08/14/14 Stop Date: 08/15/14 Status: Discontinued Diovan 40 mg oral tablet 40 mg = 1 tab, PO, BID, # 180 tab, 0 Refill(s) Start Date: 08/13/14 Status: Ordered enoxaparin 40 mg, 0.4 mL, Route: SUB-Q, Drug form: INJ, [id number], Dosing Weight 49.716, kg, Start date: 08/13/14 19:00:00, Duration: 30 day, Stop date: 09/11/14 19:00:00 Notes: (Same as: Lovenox) Start Date: 08/13/14 Stop Date: 08/15/14 Status: Discontinued Flonase 0.05 mg/inh nasal spray 1 spray, NASAL, Daily, # 16 gm, 0 Refill(s) Start Date: 08/13/14 Status: Ordered Flovent HFA 110 mcg/inh inhalation aerosol with adapter 2 puff, INHALATION, BID, # 12 gm, 0 Refill(s) Start Date: 08/13/14 Status: Ordered hydrALAZINE 20 mg, 1 mL, Route: IVP, Drug form: INJ, Q4H, Dosing Weight 49.716, kg, PRN Elev ated BP, Start date: 08/13/14 18:28:00, Duration: 30 day, Stop date: 09/12/14 18 :27:00, SBP > 180 or DBP > 100 Notes: (Same as: Apresoline)Push over 5 minutes Start Date: 08/13/14 Stop Date: 08/15/14 Status: Discontinued lactobacillus acidophilus 1 tab, Route: PO, Drug Form: CAP, Dosing Weight 49.716, kg, Daily, Start date: 10/15/13 9:00:00, Duration: 30 day, Stop date: 09/12/14 9:00:00 Start Date: 08/14/14 Stop Date: 08/13/14 Status: Deleted lactobacillus rhamnosus GG 80 mg, 1 cap, Route: PO, Drug Form: CAP, Daily, Start date: 08/14/14 9:00:00, Du ration: 30 day, Stop date: 09/12/14 9:00:00 Notes: Same as Culturelle Start Date: 08/14/14 Stop Date: 08/15/14 Status: Discontinued Mucinex 600 mg, 1 tab, Route: PO, Drug form: ERTAB, Q12H, Dosing Weight 49.716, kg, PRN Congestion, Start date: 08/13/14 18:34:00, Stop date: 09/12/14 9:00:00 Notes: (Same as: Guaifenesin LA, Humibid LA, Mucinex)"Do Not Crush" Take medica tion with plenty of water. Start Date: 08/13/14 Stop Date: 08/15/14 Status: Discontinued NS 1,000 mL 1,000 mL, Rate: 50 ml/hr, Infuse over: 20 hr, Route: IV, Dosing Weight 54.2 kg, Total Volume: 1,000, Start date: 08/14/14 16:02:00, Stop date: 09/12/14 18:12:00 Start Date: 08/14/14 Stop Date: 08/15/14 Status: Discontinued NS 1,000 mL 1,000 mL, Rate: 75 ml/hr, Infuse over: 13.3 hr, Route: IV, Dosing Weight 49.716 kg, Total Volume: 1,000, Start date: 08/13/14 18:14:00, Duration: 30 day, Stop d ate: 09/12/14 18:13:00 Start Date: 08/13/14 Stop Date: 08/14/14 Status: Discontinued Protonix 40 mg, 1 tab, Route: PO, Drug form: ECTAB, Before Dinner, Dosing Weight 49.716, kg, Start date: 08/14/14 16:30:00, Duration: 30 day, Stop date: 09/12/14 16:30:0 0 Notes: Tablet should not be chewed or crushed.(Same as: Protonix) Start Date: 08/14/14 Stop Date: 08/15/14 Status: Discontinued Saline Flush 0.9% 10 mL, Route: IVP, Drug Form: INJ, Dosing Weight 49.716, kg, PRN, PRN Line Flush , Start date: 08/13/14 14:55:00, Duration: 30 day, Stop date: 09/12/14 14:54:00 Notes: Same as: BD Posiflush Sterile Start Date: 08/13/14 Stop Date: 08/15/14 Status: Discontinued Sodium Chloride 0.9% (Bolus) IV 1,000 mL, 1000 ml/hr, Infuse Over: 1 hr, Route: IV, 1,000, Drug form: INJ, ONCE, Priority: STAT, Dosing Weight 49.716 kg, Start date: 08/13/14 16:56:00, Duratio n: 1 doses or times, Stop date: 08/13/14 16:56:00 Start Date: 08/13/14 Stop Date: 08/13/14 Status: Completed Sodium Chloride 3% (Hypertonic) IV 180 mL 180 mL, Rate: 30 ml/hr, Infuse over: 6 hr, Route: IV, Dosing Weight 49.716 kg, T otal Volume: 180 mL, Start date: 08/13/14 18:13:00, Duration: 1 doses or times, Stop date: 08/14/14 0:12:00 Notes: "Administer by central venous catheter or a peripherally inserted central catheter (PICC) line.3% Sodium Chloride may be infused via peripheral administr ation into large vein (antecubital) only in the case of emergency for short term use until a central line can be inserted" (Same as: Hypertonic Saline 3%) Start Date: 08/13/14 Stop Date: 08/13/14 Status: Completed Spiriva 18 mcg inhalation capsule 18 microgram, 1 inhalation, Route: INHALATION, Drug form: CAP, Daily, Dosing Dejuan ght 49.716, kg, Start date: 08/14/14 9:00:00, Duration: 30 day, Stop date: 09/12 9:00:00 Notes: (Same As: Spiriva) Start Date: 08/14/14 Stop Date: 08/15/14 Status: Discontinued Synthroid 75 microgram, 1 tab, Route: PO, Drug form: TAB, Daily, Dosing Weight 49.716, kg, Start date: 08/14/14 9:00:00, Duration: 30 day, Stop date: 09/12/14 9:00:00 Notes: Take 1 hour before or 2 hours after meal; Enteral feeds may interefere wi th the absorption of this medication. (Same as:Synthroid, Levothroid) Start Date: 08/14/14 Stop Date: 08/15/14 Status: Discontinued Xopenex 0.63 mg, 3 mL, Route: NEB, Drug form: SOLN, Q8H, Dosing Weight 49.716, kg, PRN a s needed for wheezing, Start date: 08/13/14 18:22:00, Stop date: 09/12/14 18:21: 00 Notes: SEE RT DOCUMENTATION (Same as:Xopenex)Non-Formulary Start Date: 08/13/14 Stop Date: 08/15/14 Status: Discontinued Zocor 20 mg, 1 tab, Route: PO, Drug form: TAB, Bedtime, Dosing Weight 49.716, kg, Star t date: 08/13/14 21:00:00, Duration: 30 day, Stop date: 09/11/14 21:00:00 Notes: (Same as: Zocor) Start Date: 08/13/14 Stop Date: 08/15/14 Status: Discontinued Results ELECTROLYTES 1 2 3 Most recent to oldest [Reference Range]: 131 mEq/L *LOW* (08/15/14 7:46 AM) 128 mEq/L *LOW* (08/14/14 8:52 AM) 127 mEq/L *LOW* (08/14/14 12:15 AM) Sodium Lvl [135-145 mEq/L] 3.7 mEq/L (08/15/14 7:46 AM) 3.6 mEq/L (08/14/14 8:52 AM) 3.6 mEq/L (08/14/14 12:15 AM) Potassium Lvl [3.5-5.1 mEq/L] 100 mEq/L (08/15/14 7:46 AM) 97 mEq/L (08/14/14 8:52 AM) 98 mEq/L (08/14/14 12:15 AM) Chloride Lvl [95-109 mEq/L] 24 mEq/L (08/15/14 7:46 AM) 22 mEq/L *LOW* (08/14/14 8:52 AM) 23 mEq/L *LOW* (08/14/14 12:15 AM) CO2 [24-32 mEq/L] 10.7 mEq/L (08/15/14 7:46 AM) 12.6 mEq/L (08/14/14 8:52 AM) 9.6 mEq/L *LOW* (08/14/14 12:15 AM) AGAP [10.0-20.0 mEq/L] CHEM PANEL 1 2 3 Most recent to oldest [Reference Range]: 0.6 mg/dL (08/15/14 7:46 AM) 0.5 mg/dL (08/14/14 8:52 AM) 0.6 mg/dL (08/14/14 12:15 AM) Creatinine Lvl [0.5-1.4 mg/dL] 93 mL/min/1.73m2 1 *NA* (08/15/14 7:46 AM) 98 mL/min/1.73m2 2 *NA* (08/14/14 8:52 AM) 93 mL/min/1.73m2 3 *NA* (08/14/14 12:15 AM) eGFR 6 mg/dL *LOW* (08/15/14 7:46 AM) 6 mg/dL *LOW* (08/14/14 8:52 AM) 6 mg/dL *LOW* (08/14/14 12:15 AM) BUN [7-22 mg/dL] 20 (08/13/14 4:14 PM) B/C Ratio [6-25] 78 mg/dL 4 (08/15/14 7:46 AM) 82 mg/dL 5 (08/14/14 8:52 AM) 80 mg/dL 6 (08/14/14 12:15 AM) Glucose Lvl [70-99 mg/dL] 7.1 g/dL (08/13/14 4:14 PM) Total Protein [6.4-8.4 g/dL] 3.8 g/dL (08/13/14 4:14 PM) Albumin Lvl [3.5-5.0 g/dL] 3.3 g/dL (08/13/14 4:14 PM) Globulin [2.0-4.0 g/dL] 1.2 (08/13/14 4:14 PM) A/G Ratio [0.7-1.6] 8.3 mg/dL *LOW* (08/15/14 7:46 AM) 8.0 mg/dL *LOW* (08/14/14 8:52 AM) 8.1 mg/dL *LOW* (08/14/14 12:15 AM) Calcium Lvl [8.5-10.5 mg/dL] 24 unit/L (08/13/14 4:14 PM) ALT [0-65 unit/L] 28 unit/L (08/13/14 4:14 PM) AST [0-37 unit/L] 62 unit/L (08/13/14 4:14 PM) Alk Phos [39-136 unit/L] 0.7 mg/dL (08/13/14 4:14 PM) Bili Total [0.2-1.3 mg/dL] 249 mOsm/kg *LOW* (08/13/14 6:54 PM) Osmolality [280-300 mOsm/kg] <0.05 ng/mL (08/13/14 6:54 PM) Procalcitonin Lvl [0.00-0.10 ng/mL] 1Result Comment: [...] values reflect the clinical guidelines of the [place] [employer]. 5Interpretive Data: Adult reference range values reflect the clinical guidelines of the [place] [employer]. 6Interpretive Data: Adult reference range values reflect the clinical guidelines of the [place] [employer]. CARDIAC ENZYMES 1 2 3 Most recent to oldest [Reference Range]: 63 unit/L (08/13/14 4:14 PM) Total CK [12-191 unit/L] 0.7 ng/mL (08/13/14 4:14 PM) CK MB [0.5-3.6 ng/mL] 1.1 (08/13/14 4:14 PM) CK MB Index [0.0-2.5] <0.02 ng/mL (08/13/14 4:14 PM) Troponin-I [0.00-0.40 ng/mL] THYROID PANEL 1 2 3 Most recent to oldest [Reference Range]: 2.530 uIU/mL (08/13/14 6:54 PM) TSH [0.360-3.740 uIU/mL] URINE CHEM 1 2 3 Most recent to oldest [Reference Range]: 592 mOsm/kg (08/13/14 4:15 PM) U Osmolality [300-800 mOsm/kg] URINE AND STOOL 1 2 3 Most recent to oldest [Reference Range]: Clear (08/13/14 4:15 PM) UA Turbidity [Clear] Yellow *NA* (08/13/14 4:15 PM) UA Color [Yellow] 6.5 (08/13/14 4:15 PM) UA pH [5.0-8.0] 1.020 (08/13/14 4:15 PM) UA Spec Grav [<=1.030] Negative (08/13/14 4:15 PM) UA Glucose [Negative] Negative (08/13/14 4:15 PM) UA Blood [Negative] >=80 mg/dL *ABN* (08/13/14 4:15 PM) UA Ketones [Negative mg/dL] Negative (08/13/14 4:15 PM) UA Protein [Negative] 0.2 EU/dL (08/13/14 4:15 PM) UA Urobilinogen [0.1-1.0 EU/dL] Negative *NA* (08/13/14 4:15 PM) UA Bili [Negative] Trace *ABN* (08/13/14 4:15 PM) UA Leuk Est [Negative] Negative (08/13/14 4:15 PM) UA Nitrite [Negative] 3-5 /HPF (08/13/14 4:15 PM) UA WBC [None Seen /HPF] 0-2 /HPF (08/13/14 4:15 PM) UA RBC [0-2 /HPF] Occasional /HPF (08/13/14 4:15 PM) UA Bacteria [None Seen /HPF] Few /LPF (08/13/14 4:15 PM) UA Sq Epi [Few /LPF] Few /LPF (08/13/14 4:15 PM) UA Mucus [None Seen /LPF] HEMATOLOGY 1 2 3 Most recent to oldest [Reference Range]: 7.3 K/CMM (08/13/14 4:14 PM) WBC [3.7-10.4 K/CMM] 4.61 M/CMM (08/13/14 4:14 PM) RBC [4.20-5.40 M/CMM] 13.4 g/dL (08/13/14 4:14 PM) Hgb [12.0-16.0 g/dL] 40.5 % (08/13/14 4:14 PM) Hct [36.0-48.0 %] 87.8 fL (08/13/14 4:14 PM) MCV [80.0-98.0 fL] 29.0 pg (08/13/14 4:14 PM) MCH [27.0-31.0 pg] 33.0 g/dL (08/13/14 4:14 PM) MCHC [32.0-36.0 g/dL] 13.0 % (08/13/14 4:14 PM) RDW [11.5-14.5 %] 337 K/CMM (08/13/14 4:14 PM) Platelet [133-450 K/CMM] 7.8 fL (08/13/14 4:14 PM) MPV [7.4-10.4 fL] 61.6 % (08/13/14 4:14 PM) Segs [45.0-75.0 %] 28.1 % (08/13/14 4:14 PM) Lymphocytes [20.0-40.0 %] 7.4 % (08/13/14 4:14 PM) Monocytes [2.0-12.0 %] 2.5 % (08/13/14 4:14 PM) Eosinophils [0.0-4.0 %] 0.4 % (08/13/14 4:14 PM) Basophils [0.0-1.0 %] 4.5 K/CMM (08/13/14 4:14 PM) Segs-Bands # [1.5-8.1 K/CMM] 2.1 K/CMM (08/13/14 4:14 PM) Lymphocytes # [1.0-5.5 K/CMM] 0.5 K/CMM (08/13/14 4:14 PM) Monocytes # [0.0-0.8 K/CMM] 0.2 K/CMM (08/13/14 4:14 PM) Eosinophils # [0.0-0.5 K/CMM] 0.0 K/CMM (08/13/14 4:14 PM) Basophils # [0.0-0.2 K/CMM] BACTERIAL - SEROLOGY 1 2 3 Most recent to oldest [Reference Range]: Negative 7 (08/13/14 7:30 PM) MRSA by PCR 7Interpretive Data: Interpretive Data: The Dilip LightCycler MRSA assay [...] reaction (PCR) assay detects a proprietary sequence indicat glynn of the integration of the SCCmec cassette into the Staphylococcus aureus chr omosome, indicating the presence of MRSA DNA. The assay utilizes FDA cleared IV D reagents. Performance characteristics have been verified by the [facility] within the [facility]. The [facility] is authorized under the Clinical Laboratory Improvement Amendment of 1 988 (CLIA-88) to perform high complexity testing. Medications Administered During Your Visit No data available for this section Immunizations No data available for this section Social History Social History Type Response Substance Abuse Use: None Employment/School Status: Employed Alcohol Use: Past Smoking Status Never smoker, Exposure to T obacco Smoke None, Cigarette Smoking Last 365 Days No, Reg Smoking Cessation Counseli ng No
--- OUTSIDE RECORDS SUMMARY | 2020-04-14 11:59 | XMS REPORT | Summary of Care ---
Author Organization Unknown Address Unknown Phone Unavailable Encounter Dates Location Diagnoses Discharge Providers Disposition 11/17/2013 [facility] Outpatient Imaging Home Sharla Nicole - [place] 11/17/2013 [address] [place] [address]- , [facility] Reason for Visit 496 - [facility] Problem List Condition Effective Dates Status Health [...]
--- OUTSIDE RECORDS SUMMARY | 2020-04-14 11:59 | XMS REPORT | Summary of Care ---
Author Organization Unknown Address Unknown Phone Unavailable Encounter TOYIN Mcdowell(ANT) [id number] Date(s): 01/24/15 - 01/30/15 [facility] [address] [place] [address]- Discharge Disposition: Home Physician Attending: Sharla Mazariegos MD Physician Admitting: Sharla Mazariegos MD Vital Signs 1 2 3 Most recent to oldest [Reference Range]: 167.64 cm (01/24/15 5:08 PM) Height 52.2 kg (01/27/15 4:42 AM) 53.008 kg (01/26/15 4:52 AM) Current Weight 98.6 DegF (01/30/15 11:40 AM) 98.4 DegF (01/30/15 7:00 AM) 98.9 DegF (01/30/15 3:42 AM) Temperature Oral [96.4-99.1 DegF] 147/80 mmHg *HI* (01/30/15 11:40 AM) 154/79 mmHg *HI* (01/30/15 7:00 AM) 156/85 mmHg *HI* (01/30/15 3:42 AM) Blood Pressure [90-140/60-90 mmHg] 16 BRMIN (01/30/15 11:40 AM) 16 BRMIN (01/30/15 7:00 AM) 18 BRMIN (01/30/15 3:42 AM) Respiratory Rate [14-20 BRMIN] 91 bpm (01/30/15 11:40 AM) 87 bpm (01/30/15 7:00 AM) 91 bpm (01/30/15 3:42 AM) Peripheral Pulse Rate [60-100 bpm] 52.006 kg (01/25/15 7:34 PM) 51.364 kg (01/24/15 5:08 PM) Weight 18.28 m2 (01/24/15 5:08 PM) Body Mass Index Problem List Condition Effective Dates Status Health Status Yamilet Lynn 12/22/14 Active baumannii(Confirmed) 1, 2 Asthma(Confirmed) Active Breast Active ca(Confirmed)3 Chemotherapy(Confirm Resolved ed)4 Cholecystectomy(Conf Active irmed) Chronic obstructive Active pulmonary disease(Confirmed) 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) GERD Active (gastroesophageal reflux disease)(Confirmed) HTN - Active Hypertension(Confirm ed) Hyponatremia(Confirm Resolved ed) Hypothyroidism(Confi Active rmed) Hysterectomy(Confirm Active ed) Osteoporosis(Confirm Active ed) Uterine Active prolapse(Confirmed) 1MDRO -- SPUTUM, 12/22/2014 2Problem added by Discern Expert. 3right breast 43 weeks ago got last chemo Allergies, Adverse Reactions, Alerts Substance Reaction Severity Status "RAW SHRIMP" Active Food Shrimp Active NKDA Active Medications acetaminophen 650 mg, 2 tab, Route: PO, Drug form: TAB, Q4H, Dosing Weight 51.364, kg, PRN Juaquin n 1-3/Temp > 100.4 F, Start date: 01/24/15 21:48:00, Duration: 30 day, Stop date: 02/23/15 21:47:00 Notes: Do not exceed 4 gm/day. (Same as: Tylenol) Start Date: 01/24/15 Stop Date: 01/30/15 Status: Discontinued Astelin 137 mcg/inh nasal spray 274 microgram, 2 inhalation, Route: NASAL, Drug Form: SPRY, Dosing Weight 51.364 , kg, PRN, PRN as needed for allergy symptoms, Start date: 01/24/15 20:30:00, Du ration: 30 day, Stop date: 02/23/15 20:29:00 Notes: (azelastine 137 microgram/inh 34 ml nasal SPR) Non-formulary drug. Same As: Astelin) Start Date: 01/24/15 Stop Date: 01/30/15 Status: Discontinued calcium carbonate 500 mg (200 mg elemental calcium) oral tablet 500 mg, 1 tab, Route: PO, Drug form: CHEWTAB, PRN, Dosing Weight 52.006, kg, PRN Abnormal Lab Result, FOR ICU USE ONLY, Start date: 01/26/15 10:00:00, Duration: 30 day, Stop date: 02/25/15 9:59:00 Notes: (Same As: Augustines)Calcium Carbonate 500 mg = 200 mg elemental calcium Dose = mg calcium carbonate ( mg elemental calcium) Start Date: 01/26/15 Stop Date: 01/30/15 Status: Discontinued calcium carbonate 500 mg (200 mg elemental calcium) oral tablet 1,000 mg, 2 tab, Route: PO, Drug form: CHEWTAB, PRN, Dosing Weight 52.006, kg, P RN Abnormal Lab Result, FOR ICU USE ONLY, Start date: 01/26/15 10:00:00, Duratio n: 30 day, Stop date: 02/25/15 9:59:00 Notes: (Same As: Augustines)Calcium Carbonate 500 mg = 200 mg elemental calcium Dose = mg calcium carbonate ( mg elemental calcium) Start Date: 01/26/15 Stop Date: 01/30/15 Status: Discontinued calcium gluconate + Sodium Chloride 0.9% IV 100 mL 1 gm, 10 mL, Route: IVPB, PRN, Dosing Weight 52.006, kg, PRN Abnormal Lab Result , Start date: 01/26/15 10:00:00, Duration: 30 day, Stop date: 02/25/15 9:59:00, FOR ICU USE ONLY Special Instructions: FOR ICU USE ONLY Start Date: 01/26/15 Stop Date: 01/30/15 Status: Discontinued cefepime + Sodium Chloride 0.9% IV 100 mL 1 gm, Route: IVPB, Drug form: INJ, [id number], Dosing Weight 51.364, kg, (CrCl 30 - 49 ml/min), Start date: 01/24/15 22:00:00, Duration: 30 day, Stop date: 02/23/15 10:00:00 Notes: (Same As: Maxipime) MEDICATION WASTE Product Size: 1000 mgProduc t Wasted: ___ mg Start Date: 01/24/15 Stop Date: 01/25/15 Status: Discontinued Colace 100 mg oral capsule 100 mg, 1 cap, Route: PO, Drug form: CAP, BID, Dosing Weight 52.006, kg, Start d ate: 01/26/15 17:00:00, Duration: 30 day, Stop date: 02/25/15 9:00:00 Notes: (Same as: Colace) (Do Not Crush) Start Date: 01/26/15 Stop Date: 01/30/15 Status: Discontinued Colace 100 mg oral capsule 100 mg = 1 cap, PO, BID, 0 Refill(s) Start Date: 01/30/15 Status: Ordered colistimethate 75 mg, NEB, RQ12H, 7 days, 0 Refill(s) Special Instructions: 7 days Start Date: 01/30/15 Status: Ordered colistimethate 75 mg, Route: NEB, Drug form: PDR/INJ, RQ12H, Dosing Weight 51.364, kg, Start da te: 01/24/15 21:30:00, Duration: 30 day, Stop date: 02/23/15 19:00:00 Notes: (Same As: Coly-Mycin) Start Date: 01/24/15 Stop Date: 01/30/15 Status: Discontinued D5W 1,000 mL 1,000 mL, Rate: 20 ml/hr, Infuse over: 50 hr, Route: IV, Dosing Weight 52.006 kg , Total Volume: 1,000, Start date: 01/27/15 8:12:00, Duration: 30 day, Stop date : 02/26/15 8:11:00 Start Date: 01/27/15 Stop Date: 01/30/15 Status: Discontinued demeclocycline 300 mg, 2 tab, Route: PO, Drug form: TAB, Q12H, Dosing Weight 51.364, kg, Start date: 01/25/15 21:00:00, Duration: 30 day, Stop date: 02/24/15 9:00:00 Notes: (Same As: Declomycin) Start Date: 01/25/15 Stop Date: 01/30/15 Status: Discontinued Dextrose 50% Syringe 12.5 gm, 25 mL, Route: IVP, Drug Form: INJ, Dosing Weight 52.006, kg, PRN, PRN B lood Glucose Results, Start date: 01/26/15 18:22:00, Duration: 30 day, Stop date : 02/25/15 18:21:00 Start Date: 01/26/15 Stop Date: 01/30/15 Status: Discontinued Dextrose 50% Syringe 25 gm, 50 mL, Route: IVP, Drug Form: INJ, Dosing Weight 52.006, kg, PRN, PRN Blo od Glucose Results, Start date: 01/26/15 18:22:00, Duration: 30 day, Stop date: 02/25/15 18:21:00 Start Date: 01/26/15 Stop Date: 01/30/15 Status: Discontinued Diovan 40 mg, 1 tab, Route: PO, Drug form: TAB, BID, Dosing Weight 51.364, kg, Start da te: 01/25/15 9:00:00, Duration: 30 day, Stop date: 02/23/15 17:00:00 Notes: Same as Diovan Start Date: 01/25/15 Stop Date: 01/30/15 Status: Discontinued Dulcolax Laxative 10 mg, 2 tab, Route: PO, Drug form: ECTAB, Daily, PRN Constipation, Start date: 01/29/15 20:55:00, Duration: 30 day, Stop date: 02/28/15 20:54:00 Notes: (Same As: Dulcolax, Correctol) (Do Not Crush) "Do Not Crush" Start Date: 01/29/15 Stop Date: 01/30/15 Status: Discontinued DuoNeb inhalation solution 3 mL, Route: NEB, Drug Form: SOLN, Dosing Weight 51.364, kg, Q4H, Start date: 16:00:00, Duration: 30 day, Stop date: 02/24/15 12:00:00 Notes: (Same as: Duoneb) Start Date: 01/25/15 Stop Date: 01/30/15 Status: Discontinued DuoNeb inhalation solution 3 mL, Route: NEB, Drug Form: SOLN, ONCE, Start date: 01/25/15 1:30:00, Stop date : 01/25/15 1:30:00 Notes: (Same as: Duoneb) Start Date: 01/25/15 Stop Date: 01/25/15 Status: Completed DuoNeb inhalation solution 3 mL, Route: NEB, Drug Form: SOLN, PRN, PRN Respiratory Protocol, Start date: 4:24:00, Duration: 30 day, Stop date: 02/24/15 4:23:00 Notes: (Same as: Duoneb) Start Date: 01/25/15 Stop Date: 01/30/15 Status: Discontinued DuoNeb inhalation solution 3 mL, Route: NEB, Drug Form: SOLN, Dosing Weight 51.364, kg, RQID, Start date: 0 01/25/15 22:00:00, Duration: 30 day, Stop date: 02/24/15 19:00:00 Notes: (Same as: Duoneb) Start Date: 01/25/15 Stop Date: 01/25/15 Status: Canceled enoxaparin 40 mg, 0.4 mL, Route: SUB-Q, Drug form: INJ, [id number], Dosing Weight 51.364, kg, Start date: 01/24/15 21:00:00, Duration: 30 day, Stop date: 02/22/15 21:00:00 Notes: (Same as: Lovenox) Start Date: 01/24/15 Stop Date: 01/30/15 Status: Discontinued enoxaparin 40 mg = 0.4 mL, SUB-Q, [id number], 0 Refill(s) Start Date: 01/30/15 Status: Ordered glucagon 1 mg, Route: IM, Drug form: PDR/INJ, PRN, Dosing Weight 52.006, kg, PRN Blood Gl ucose Results, Start date: 01/26/15 18:22:00, Duration: 30 day, Stop date: 02/25 18:21:00 Start Date: 01/26/15 Stop Date: 01/30/15 Status: Discontinued heparin flush 500 unit, 5 mL, Route: IV, Drug form: SOLN, ONCE, Start date: 01/29/15 17:22:00, Stop date: 01/29/15 17:22:00 Notes: (Same as: Heparin Lock Flush) Start Date: 01/29/15 Stop Date: 01/29/15 Status: Completed insulin aspart 6 unit, 0.06 mL, Route: SUB-Q, Drug form: SOLN, TID-Before Meals, Dosing Weight 52.006, kg, PRN Blood Glucose Results, Start date: 01/26/15 18:22:00, Duration: 30 day, Stop date: 02/25/15 18:21:00 Notes: Roll in palms of hands gently; Do not shake vigorously. (Same as: NovoLO G)"single patient use only" Stable for 28 days at room temperature.Expires in _ ____ days from Date Start Date: 01/26/15 Stop Date: 01/30/15 Status: Discontinued insulin aspart 4 unit, 0.04 mL, Route: SUB-Q, Drug form: SOLN, TID-Before Meals, Dosing Weight 52.006, kg, PRN Blood Glucose Results, Start date: 01/26/15 18:22:00, Duration: 30 day, Stop date: 02/25/15 18:21:00 Notes: Roll in palms of hands gently; Do not shake vigorously. (Same as: NovoLO G)"single patient use only" Stable for 28 days at room temperature.Expires in _ ____ days from Date Start Date: 01/26/15 Stop Date: 01/30/15 Status: Discontinued insulin aspart 2 unit, 0.02 mL, Route: SUB-Q, Drug form: SOLN, TID-Before Meals, Dosing Weight 52.006, kg, PRN Blood Glucose Results, Start date: 01/26/15 18:22:00, Duration: 30 day, Stop date: 02/25/15 18:21:00 Notes: Roll in palms of hands gently; Do not shake vigorously. (Same as: NovoLO G)"single patient use only" Stable for 28 days at room temperature.Expires in _ ____ days from Date Start Date: 01/26/15 Stop Date: 01/30/15 Status: Discontinued insulin aspart 10 unit, 0.1 mL, Route: SUB-Q, Drug form: SOLN, TID-Before Meals, Dosing Weight 52.006, kg, PRN Blood Glucose Results, Start date: 01/26/15 18:22:00, Duration: 30 day, Stop date: 02/25/15 18:21:00 Notes: Roll in palms of hands gently; Do not shake vigorously. (Same as: NovoLO G)"single patient use only" Stable for 28 days at room temperature.Expires in _ ____ days from Date Start Date: 01/26/15 Stop Date: 01/30/15 Status: Discontinued insulin aspart 8 unit, 0.08 mL, Route: SUB-Q, Drug form: SOLN, TID-Before Meals, Dosing Weight 52.006, kg, PRN Blood Glucose Results, Start date: 01/26/15 18:22:00, Duration: 30 day, Stop date: 02/25/15 18:21:00 Notes: Roll in palms of hands gently; Do not shake vigorously. (Same as: NovoLO G)"single patient use only" Stable for 28 days at room temperature.Expires in _ ____ days from Date Start Date: 01/26/15 Stop Date: 01/30/15 Status: Discontinued lactulose 20 gm, 30 ml, Route: PO, Drug Form: SYRP, Dosing Weight 52.006, kg, Q8H, PRN Con stipation, Start date: 01/28/15 16:25:00, Duration: 30 day, Stop date: 02/27/15 16:24:00 Notes: (Same as:Chronulac) Start Date: 01/28/15 Stop Date: 01/30/15 Status: Discontinued lactulose 10 g/15 mL oral syrup 20 gm = 30 mL, PO, Q8H, PRN Constipation, 0 Refill(s) Start Date: 01/30/15 Status: Ordered Levaquin 750 mg, 150 mL, Route: IVPB, Drug form: SOLN, [id number], Dosing Weight 51.364, kg, Start date: 01/24/15 21:00:00, Duration: 30 day, Stop date: 02/22/15 21:00:00 Notes: (Same as:Levaquin) Start Date: 01/24/15 Stop Date: 01/25/15 Status: Discontinued levofloxacin 750 mg, Route: IVPB, Drug form: SOLN, [id number], Dosing Weight 51.364, kg, Start d ate: 01/24/15 22:00:00, Duration: 30 day, Stop date: 02/22/15 22:00:00 Start Date: 01/24/15 Stop Date: 01/24/15 Status: Deleted levothyroxine 75 microgram, 1 tab, Route: PO, Drug form: TAB, Daily, Dosing Weight 51.364, kg, Start date: 01/25/15 9:00:00, Duration: 30 day, Stop date: 02/23/15 9:00:00 Notes: Take 1 hour before or 2 hours after meal; Enteral feeds may interefere wi th the absorption of this medication. (Same as:Synthroid, Levothroid) Start Date: 01/25/15 Stop Date: 01/30/15 Status: Discontinued magnesium oxide 800 mg, 2 tab, Route: PO, Drug form: TAB, PRN, Dosing Weight 52.006, kg, PRN Abn ormal Lab Result, FOR ICU USE ONLY, Start date: 01/26/15 10:00:00, Duration: 30 day, Stop date: 02/25/15 9:59:00 Notes: (Same as: Mag-Ox 400)Magnesium oxide [id number] elemental magnesiumDose= ____mg magnesium oxide (___mg elemental magnesium) Start Date: 01/26/15 Stop Date: 01/30/15 Status: Discontinued magnesium sulfate 2 gm, 50 mL, Route: IVPB, Drug form: INJ, PRN, Dosing Weight 52.006, kg, PRN Abn ormal Lab Result, Start date: 01/26/15 10:00:00, Duration: 30 day, Stop date: 9:59:00, FOR ICU USE ONLY Special Instructions: FOR ICU USE ONLY Start Date: 01/26/15 Stop Date: 01/30/15 Status: Discontinued Megace 400 mg, 10 mL, Route: PO, Drug form: SUSP, BID, Dosing Weight 52.006, kg, Start date: 01/26/15 11:00:00, Duration: 30 day, Stop date: 02/25/15 9:00:00 Start Date: 01/26/15 Stop Date: 01/30/15 Status: Discontinued megestrol 40 mg/mL oral suspension 400 mg = 10 mL, PO, BID, 0 Refill(s) Start Date: 01/30/15 Status: Ordered meropenem + Sodium Chloride 0.9% IV 100 mL 500 mg, Route: IVPB, Drug form: PDR/INJ, [id number], Dosing Weight 51.364, kg, CrCL= 26 -49 ml/min, Extended infusion, infuse over 3 hours, Start date: 01/24/15 23 :00:00, Duration: 30 day, Stop date: 02/23/15 15:00:00 Notes: Same as Merrem MEDICATION WASTE Product Size: 500 mgProduct Wast ed: ___ mg Start Date: 01/24/15 Stop Date: 01/28/15 Status: Discontinued methylPREDNISolone SODium SUCCinate 80 mg, 2 mL, Route: IVP, Drug form: INJ, Q6H, Dosing Weight 51.364, kg, Start da te: 01/25/15 12:00:00, Duration: 30 day, Stop date: 02/24/15 6:00:00 Notes: (Same as:Solu-MEDROL, A-Methapred) Start Date: 01/25/15 Stop Date: 01/28/15 Status: Discontinued methylPREDNISolone SODium SUCCinate 40 mg, 1 mL, Route: IVP, Drug form: INJ, Q8H, Dosing Weight 51.364, kg, Start da te: 01/29/15 0:00:00, Duration: 30 day, Stop date: 02/27/15 16:00:00 Notes: (Same as:Solu-MEDROL, A-Methapred) Start Date: 01/29/15 Stop Date: 01/29/15 Status: Discontinued methylPREDNISolone SODium SUCCinate 80 mg, 2 mL, Route: IVP, Drug form: INJ, Q8H, Dosing Weight 51.364, kg, Priority : NOW, Start date: 01/25/15 11:54:00, Duration: 30 day, Stop date: 02/24/15 5:00 :00 Notes: (Same as:Solu-MEDROL, A-Methapred) Start Date: 01/25/15 Stop Date: 01/25/15 Status: Discontinued morphine Sulfate 2 mg, 1 mL, Route: IVP, Drug form: INJ, Q3H, Dosing Weight 51.364, kg, PRN Pain Score 4-6, Start date: 01/24/15 21:48:00, Duration: 30 day, Stop date: 02/23/15 21:47:00 Notes: (Same as:MORPhine Sulfate) Start Date: 01/24/15 Stop Date: 01/30/15 Status: Discontinued Neutra-Phos 2 pkt, Route: PO, Drug Form: PDR/REC, Dosing Weight 52.006, kg, PRN, PRN Abnorma l Lab Result, FOR ICU USE ONLY, Start date: 01/26/15 10:00:00, Duration: 30 day, Stop date: 02/25/15 9:59:00 Notes: (Same as: Neutra-Phos) Each 1.25 gm pkt has 250mg phosphorous. Mix w/2.5 oz water and stir. Start Date: 01/26/15 Stop Date: 01/30/15 Status: Discontinued Eldridge 5/325 oral tablet 1 tab, Route: PO, Drug Form: TAB, Dosing Weight 51.364, kg, Q6H, PRN Pain 1-3/Te mp > 100.4 F, Start date: 01/25/15 11:55:00, Duration: 30 day, Stop date: 02/24/15 11:54:00 Notes: (Same as: Eldridge 325/5) Do not exceed 4gm/day of acetaminophen. Start Date: 01/25/15 Stop Date: 01/30/15 Status: Discontinued Eldridge 5/325 oral tablet 1 tab, Route: PO, Drug Form: TAB, Dosing Weight 51.364, kg, Q6H, Start date: 0:00:00, Duration: 30 day, Stop date: 02/23/15 18:00:00 Notes: (Same as: Eldridge 325/5) Do not exceed 4gm/day of acetaminophen. Start Date: 01/25/15 Stop Date: 01/25/15 Status: Discontinued normal saline 0.9% IV 1,000 mL 1,000 mL, Rate: 50 ml/hr, Infuse over: 20 hr, Route: IV, Dosing Weight 52.006 kg , Total Volume: 1,000, Start date: 01/26/15 10:12:00, Duration: 30 day, Stop june e: 02/25/15 10:11:00 Start Date: 01/26/15 Stop Date: 01/27/15 Status: Discontinued NS 1,000 mL 1,000 mL, Rate: 75 ml/hr, Infuse over: 13.3 hr, Route: IV, Dosing Weight 51.364 kg, Total Volume: 1,000, Start date: 01/24/15 20:28:00, Duration: 30 day, Stop d ate: 02/23/15 20:27:00 Start Date: 01/24/15 Stop Date: 01/25/15 Status: Discontinued Omnipaque 350 100 mL, 200 ml/hr, Route: IV, Drug Form: SOLN ONCALL, Start date: 01/24/15 23:0 0:00, Duration: 30 day, Stop date: 02/23/15 22:59:00 Notes: (same as:Omnipaque 350). Start Date: 01/24/15 Stop Date: 01/24/15 Status: Completed ondansetron 4 mg, 2 mL, Route: IVP, Drug form: INJ, Q8H, Dosing Weight 51.364, kg, PRN Nause a & Vomiting, Start date: 01/24/15 21:48:00, Duration: 30 day, Stop date: 02/23/15 21:47:00 Notes: (Same as: Calixto) MEDICATION WASTE Product Size: 4 mgProduct Was bradly: ___ mg Start Date: 01/24/15 Stop Date: 01/30/15 Status: Discontinued pantoprazole 40 mg oral enteric coated tablet 40 mg = 1 tab, PO, Before Breakfast, 0 Refill(s) Start Date: 01/30/15 Status: Ordered Pepcid 20 mg, 2 mL, Route: IVP, Drug form: INJ, Q12H, Dosing Weight 51.364, kg, Start d ate: 01/24/15 21:00:00, Duration: 30 day, Stop date: 02/23/15 9:00:00 Notes: (Same as: Pepcid)Can be dilute in 5-10cc NS IVP: Slow IV push over at le ast 2 minutes. Start Date: 01/24/15 Stop Date: 01/29/15 Status: Discontinued potassium chloride 20 mEq, 1 tab, Route: PO, Drug form: ERTAB, PRN, Dosing Weight 52.006, kg, PRN A bnormal Lab Result, Start date: 01/26/15 10:00:00, Duration: 30 day, Stop date: 02/25/15 9:59:00, FOR ICU USE ONLY Special Instructions: FOR ICU USE ONLY Notes: (Same as: K-Dur 20)"Do Not Crush" With food and full glass of water Start Date: 01/26/15 Stop Date: 01/30/15 Status: Discontinued potassium chloride 20 mEq, 100 mL, Route: IVPB, Drug form: INJ, PRN, Dosing Weight 52.006, kg, PRN Abnormal Lab Result, Via central line, Start date: 01/26/15 10:00:00, Duration: 30 day, Stop date: 02/25/15 9:59:00, FOR ICU USE ONLY Special Instructions: FOR ICU USE ONLY Notes: (Same as: KCL) Infuse no faster than 10 mEq/hr if given peripherally. Start Date: 01/26/15 Stop Date: 01/30/15 Status: Discontinued potassium chloride 10 mEq, 100 mL, Route: IVPB, Drug form: INJ, PRN, Dosing Weight 52.006, kg, PRN Abnormal Lab Result, Via peripheral line, Start date: 01/26/15 10:00:00, Duratio n: 30 day, Stop date: 02/25/15 9:59:00, FOR ICU USE ONLY Special Instructions: FOR ICU USE ONLY Notes: Infuse at a rate of 10 mEq/hr.(Same as: KCL) Start Date: 01/26/15 Stop Date: 01/30/15 Status: Discontinued potassium chloride 20 mEq, 15 mL, Route: NJ, Drug form: LIQ, PRN, Dosing Weight 52.006, kg, PRN Abn ormal Lab Result, Start date: 01/26/15 10:00:00, Duration: 30 day, Stop date: 9:59:00, FOR ICU USE ONLY Special Instructions: FOR ICU USE ONLY Notes: (Same as: Potassium Chloride) Start Date: 01/26/15 Stop Date: 01/30/15 Status: Discontinued potassium phosphate + Sodium Chloride 0.9% IV 250 mL 45 mmol, 15 mL, Route: IVPB, PRN, Dosing Weight 52.006, kg, PRN Abnormal Lab Res ult, Start date: 01/26/15 10:00:00, Duration: 30 day, Stop date: 02/25/15 9:59:0 0, FOR ICU USE ONLY Special Instructions: FOR ICU USE ONLY Notes: (Same as: K Phosphate.) 1 mMol phoshate has 1.47 mEq potassium Infuse o yady 4 hours Start Date: 01/26/15 Stop Date: 01/30/15 Status: Discontinued potassium phosphate + Sodium Chloride 0.9% IV 250 mL 15 mmol, 5 mL, Route: IVPB, PRN, Dosing Weight 52.006, kg, PRN Abnormal Lab Resu lt, Start date: 01/26/15 10:00:00, Duration: 30 day, Stop date: 02/25/15 9:59:00 , FOR ICU USE ONLY Special Instructions: FOR ICU USE ONLY Notes: (Same as: K Phosphate.) 1 mMol phoshate has 1.47 mEq potassium Infuse o yady 4 hours Start Date: 01/26/15 Stop Date: 01/30/15 Status: Discontinued potassium phosphate + Sodium Chloride 0.9% IV 250 mL 30 mmol, 10 mL, Route: IVPB, PRN, Dosing Weight 52.006, kg, PRN Abnormal Lab Res ult, Start date: 01/26/15 10:00:00, Duration: 30 day, Stop date: 02/25/15 9:59:0 0, FOR ICU USE ONLY Special Instructions: FOR ICU USE ONLY Notes: (Same as: K Phosphate.) 1 mMol phoshate has 1.47 mEq potassium Infuse o yady 4 hours Start Date: 01/26/15 Stop Date: 01/30/15 Status: Discontinued predniSONE 60 mg, 3 tab, Route: PO, Drug form: TAB, Daily, Dosing Weight 52.006, kg, Start date: 01/30/15 9:00:00, Duration: 30 day, Stop date: 02/28/15 9:00:00 Notes: Take with food. Start Date: 01/30/15 Stop Date: 01/30/15 Status: Discontinued predniSONE 20 mg oral tablet See Special Instructions, PO, Daily, 16 day regimen: Days 1-4 - 40 mg (2 tabs) daily Days 5-8 - 30 mg (1 1/2 tabs) daily Days 9-12 - 20 mg (1 tab) daily Da y 13-16 - 10 mg (1/2 tab) daily, X 16 day, # 24 tab, 0 Refill(s) Special Instructions: 16 day regimen:Days 1-4 - 40 mg (2 tabs) dailyDays 5-8 - 3 0 mg (1 1/2 tabs) daily Days 9-12 - 20 mg (1 tab) dailyDay -16 - 10 mg (1/2 ta b) daily Start Date: 01/30/15 Stop Date: 02/15/15 Status: Ordered Protonix 40 mg, 1 tab, Route: PO, Drug form: ECTAB, Before Breakfast, Dosing Weight 52.00 6, kg, Start date: 01/29/15 10:00:00, Duration: 30 day, Stop date: 02/28/15 7:30 :00 Notes: Tablet should not be chewed or crushed.(Same as: Protonix) Start Date: 01/29/15 Stop Date: 01/30/15 Status: Discontinued Pulmicort Respules 0.5 mg, 2 mL, Route: NEB, Drug form: SUSP, PRN, PRN Respiratory Protocol, Start date: 01/25/15 4:26:00, Duration: 30 day, Stop date: 02/24/15 4:25:00 Notes: (Same As: Pulmicort) Start Date: 01/25/15 Stop Date: 01/25/15 Status: Discontinued Pulmicort Respules 0.5 mg, 2 mL, Route: NEB, Drug form: SUSP, ONCE, Start date: 01/25/15 1:30:00, S top date: 01/25/15 1:30:00 Notes: (Same As: Pulmicort) Start Date: 01/25/15 Stop Date: 01/25/15 Status: Completed Pulmicort Respules 0.5 mg/2 mL inhalation suspension 0.5 mg = 2 mL, NEB, BID, 0 Refill(s) Start Date: 01/30/15 Status: Ordered Pulmicort Respules 0.5 mg/2 mL inhalation suspension 0.5 mg, 2 mL, Route: NEB, Drug form: SUSP, BID, Dosing Weight 51.364, kg, Start date: 01/25/15 9:00:00, Duration: 30 day, Stop date: 02/23/15 17:00:00 Notes: (Same As: Pulmicort) Start Date: 01/25/15 Stop Date: 01/30/15 Status: Discontinued Saline Flush 0.9% 10 mL, Route: IVP, Drug Form: INJ, Dosing Weight 51.364, kg, PRN, PRN Line Flush , Start date: 01/24/15 17:12:00, Duration: 30 day, Stop date: 02/23/15 17:11:00 Notes: Same as: BD Posiflush Sterile Start Date: 01/24/15 Stop Date: 01/30/15 Status: Discontinued sodium chloride 1 gm oral tablet 2 gm, 2 tab, Route: PO, Drug form: TAB, TID, Dosing Weight 52.006, kg, Start june e: 01/30/15 17:00:00, Duration: 30 day, Stop date: 03/01/15 13:00:00 Start Date: 01/30/15 Stop Date: 01/30/15 Status: Canceled sodium chloride 1 gm oral tablet 3 gm, 3 tab, Route: PO, Drug form: TAB, [id number], Dosing Weight 52.006, kg, Start date: 01/29/15 10:00:00, Duration: 30 day, Stop date: 02/28/15 2:00:00 Start Date: 01/29/15 Stop Date: 01/30/15 Status: Discontinued sodium chloride 1 gm oral tablet 3 gm = 3 tab, PO, [id number], # 270 tab, 2 Refill(s) Start Date: 01/30/15 Stop Date: 01/30/15 Status: Discontinued Sodium Chloride 3% (Hypertonic) IV 180 mL 180 mL, Rate: 30 ml/hr, Infuse over: 6 hr, Route: IV, Dosing Weight 51.364 kg, T otal Volume: 180 mL, Start date: 01/24/15 20:21:00, Duration: 1 doses or times, Stop date: 01/25/15 2:20:00 Notes: "Administer by central venous catheter or a peripherally inserted central catheter (PICC) line.3% Sodium Chloride may be infused via peripheral administr ation into large vein (antecubital) only in the case of emergency for short term use until a central line can be inserted" (Same as: Hypertonic Saline 3%) Start Date: 01/24/15 Stop Date: 01/24/15 Status: Completed Sodium Chloride 3% IV 500 mL 500 mL, Rate: 30 ml/hr, Infuse over: 16.7 hr, Route: IV, Dosing Weight 51.364 kg , Total Volume: 500, Start date: 01/25/15 15:32:00, Duration: 30 day, Stop date: 02/24/15 15:31:00 Notes: "Administer by central venous catheter or a peripherally inserted central catheter (PICC) line.3% Sodium Chloride may be infused via peripheral administr ation into large vein (antecubital) only in the case of emergency for short term use until a central line can be inserted" (Same as: Hypertonic Saline 3%) Start Date: 01/25/15 Stop Date: 01/26/15 Status: Discontinued sodium phosphate + Sodium Chloride 0.9% IV 250 mL 30 mmol, 10 mL, Route: IVPB, PRN, Dosing Weight 52.006, kg, PRN Abnormal Lab Res ult, Start date: 01/26/15 10:00:00, Duration: 30 day, Stop date: 02/25/15 9:59:0 0, FOR ICU USE ONLY Special Instructions: FOR ICU USE ONLY Start Date: 01/26/15 Stop Date: 01/30/15 Status: Discontinued sodium phosphate + Sodium Chloride 0.9% IV 250 mL 45 mmol, 15 mL, Route: IVPB, PRN, Dosing Weight 52.006, kg, PRN Abnormal Lab Res ult, Start date: 01/26/15 10:00:00, Duration: 30 day, Stop date: 02/25/15 9:59:0 0, FOR ICU USE ONLY Special Instructions: FOR ICU USE ONLY Start Date: 01/26/15 Stop Date: 01/30/15 Status: Discontinued sodium phosphate + Sodium Chloride 0.9% IV 250 mL 15 mmol, 5 mL, Route: IVPB, PRN, Dosing Weight 52.006, kg, PRN Abnormal Lab Resu lt, Start date: 01/26/15 10:00:00, Duration: 30 day, Stop date: 02/25/15 9:59:00 , FOR ICU USE ONLY Special Instructions: FOR ICU USE ONLY Start Date: 01/26/15 Stop Date: 01/30/15 Status: Discontinued Spiriva 18 mcg inhalation capsule 18 microgram, 1 inhalation, Route: INHALATION, Drug form: CAP, Daily, Dosing Dejuan ght 51.364, kg, Start date: 01/25/15 9:00:00, Duration: 30 day, Stop date: 02/23 9:00:00 Notes: (Same As: Spiriva) Start Date: 01/25/15 Stop Date: 01/30/15 Status: Discontinued tolvaptan 15 mg, 1 tab, Route: PO, Drug form: TAB, Daily, Dosing Weight 51.364, kg, Priori ty: NOW, Start date: 01/25/15 11:56:00, Duration: 30 day, Stop date: 02/24/15 9: 00:00 Notes: Same as: Samsca Start Date: 01/25/15 Stop Date: 01/27/15 Status: Discontinued vancomycin 1 gm, Route: IVPB, Drug form: INJ, [id number], Dosing Weight 51.364, kg, Start date : 01/24/15 22:00:00, Duration: 30 day, Stop date: 02/22/15 22:00:00 Start Date: 01/24/15 Stop Date: 01/24/15 Status: Deleted vancomycin 1 gm, 200 mL, Route: IVPB, Drug form: INJ, [id number], Dosing Weight 51.364, kg, St art date: 01/26/15 17:00:00, Duration: 30 day, Stop date: 02/24/15 17:00:00 Start Date: 01/26/15 Stop Date: 01/28/15 Status: Discontinued vancomycin 1 gm, 200 mL, Route: IVPB, Drug form: INJ, [id number], Dosing Weight 51.364, kg, St art date: 01/24/15 22:00:00, Duration: 30 day, Stop date: 02/23/15 10:00:00 Start Date: 01/24/15 Stop Date: 01/25/15 Status: Discontinued Xopenex 0.63 mg, 3 mL, Route: NEB, Drug form: SOLN, RQID, Dosing Weight 52.006, kg, Star t date: 01/30/15 15:00:00, Duration: 30 day, Stop date: 03/01/15 11:00:00, Subst itute Allowed No Notes: SEE RT DOCUMENTATION (Same as:Xopenex)Non-Formulary Start Date: 01/30/15 Stop Date: 01/30/15 Status: Discontinued Zocor 20 mg, 1 tab, Route: PO, Drug form: TAB, Bedtime, Dosing Weight 51.364, kg, Star t date: 01/24/15 21:00:00, Duration: 30 day, Stop date: 02/22/15 21:00:00 Notes: (Same as: Zocor) Start Date: 01/24/15 Stop Date: 01/30/15 Status: Discontinued Zofran 4 mg, 2 mL, Route: IV, Drug form: INJ, Q8H, Dosing Weight 51.364, kg, PRN Nausea , Start date: 01/24/15 20:31:00, Duration: 30 day, Stop date: 02/23/15 20:30:00 Notes: (Same as: Zofran) MEDICATION WASTE Product Size: 4 mgProduct Was bradly: ___ mg Start Date: 01/24/15 Stop Date: 01/25/15 Status: Discontinued Results ELECTROLYTES 1 2 3 Most recent to oldest [Reference Range]: 139 mEq/L (01/30/15 5:46 AM) 135 mEq/L (01/29/15 4:56 AM) 136 mEq/L (01/28/15 5:01 AM) Sodium Lvl [135-145 mEq/L] 3.4 mEq/L *LOW* (01/30/15 5:46 AM) 3.4 mEq/L *LOW* (01/29/15 4:56 AM) 3.7 mEq/L (01/28/15 5:01 AM) Potassium Lvl [3.5-5.1 mEq/L] 103 mEq/L (01/30/15 5:46 AM) 99 mEq/L (01/29/15 4:56 AM) 103 mEq/L (01/28/15 5:01 AM) Chloride Lvl [95-109 mEq/L] 26 mEq/L (01/30/15 5:46 AM) 25 mEq/L (01/29/15 4:56 AM) 24 mEq/L (01/28/15 5:01 AM) CO2 [24-32 mEq/L] 13.4 mEq/L (01/30/15 5:46 AM) 14.4 mEq/L (01/29/15 4:56 AM) 12.7 mEq/L (01/28/15 5:01 AM) AGAP [10.0-20.0 mEq/L] CHEM PANEL 1 2 3 Most recent to oldest [Reference Range]: 0.6 mg/dL (01/30/15 5:46 AM) 0.6 mg/dL (01/29/15 4:56 AM) 0.7 mg/dL (01/28/15 5:01 AM) Creatinine Lvl [0.5-1.4 mg/dL] 93 mL/min/1.73m2 1 *NA* (01/30/15 5:46 AM) 93 mL/min/1.73m2 2 *NA* (01/29/15 4:56 AM) 88 mL/min/1.73m2 3 *NA* (01/28/15 5:01 AM) eGFR 12 mg/dL (01/30/15 5:46 AM) 13 mg/dL (01/29/15 4:56 AM) 11 mg/dL (01/28/15 5:01 AM) BUN [7-22 mg/dL] 14 (01/26/15 6:16 AM) B/C Ratio [6-25] 84 mg/dL 4 (01/30/15 5:46 AM) 122 mg/dL 5 *HI* (01/29/15 4:56 AM) 126 mg/dL 6 *HI* (01/28/15 5:01 AM) Glucose Lvl [70-99 mg/dL] 6.5 g/dL (01/26/15 6:16 AM) Total Protein [6.4-8.4 g/dL] 3.3 g/dL *LOW* (01/26/15 6:16 AM) Albumin Lvl [3.5-5.0 g/dL] 3.2 g/dL (01/26/15 6:16 AM) Globulin [2.0-4.0 g/dL] 1.0 (01/26/15 6:16 AM) A/G Ratio [0.7-1.6] 7.7 mg/dL *LOW* (01/30/15 5:46 AM) 8.0 mg/dL *LOW* (01/29/15 4:56 AM) 8.4 mg/dL *LOW* (01/28/15 5:01 AM) Calcium Lvl [8.5-10.5 mg/dL] 2.6 mg/dL (01/27/15 5:09 PM) 2.2 mg/dL *LOW* (01/27/15 6:36 AM) 2.5 mg/dL (01/26/15 5:09 PM) Phosphorus [2.5-4.5 mg/dL] 1.9 mg/dL (01/27/15 6:36 AM) 2.0 mg/dL (01/26/15 6:16 AM) 1.6 mg/dL *LOW* (01/25/15 6:57 AM) Magnesium Lvl [1.8-2.4 mg/dL] 16 unit/L (01/26/15 6:16 AM) ALT [0-65 unit/L] 12 unit/L (01/26/15 6:16 AM) AST [0-37 unit/L] 66 unit/L (01/26/15 6:16 AM) Alk Phos [39-136 unit/L] 0.3 mg/dL (01/26/15 6:16 AM) Bili Total [0.2-1.3 mg/dL] 0.8 mMol/L (01/24/15 6:38 PM) Lactic Acid Lvl [0.5-2.2 mMol/L] 288 mOsm/kg (01/28/15 5:01 AM) 278 mOsm/kg *LOW* (01/26/15 6:16 AM) Osmolality [280-300 mOsm/kg] <0.05 ng/mL (01/24/15 6:38 PM) Procalcitonin Lvl [0.00-0.10 ng/mL] 1Result Comment: [...] values reflect the clinical guidelines of the [place] [employer]. 5Interpretive Data: Adult reference range values reflect the clinical guidelines of the [place] [employer]. 6Interpretive Data: Adult reference range values reflect the clinical guidelines of the [place] [employer]. CARDIAC ENZYMES 1 2 3 Most recent to oldest [Reference Range]: <0.02 ng/mL (01/24/15 6:38 PM) Troponin-I [0.00-0.40 ng/mL] THYROID PANEL 1 2 3 Most recent to oldest [Reference Range]: 1.25 ng/dL (01/26/15 6:16 AM) T4 Free [0.76-1.46 ng/dL] 0.824 uIU/mL (01/26/15 6:16 AM) TSH [0.360-3.740 uIU/mL] 1.19 pg/mL *LOW* (01/26/15 6:16 AM) T3 Free [2.18-3.98 pg/mL] TOXICOLOGY 1 2 3 Most recent to oldest [Reference Range]: 1400 *NA* (01/28/15 2:46 PM) Vanco Tr TND 5.2 ug/ml 7 *NA* (01/28/15 2:46 PM) Vanco Tr 7Interpretive Data: Therapeutic Range: Trough: 10 - 20 ug/mL Peak: 20 - 40 ug/mL Potential Toxicity: >80 ug/mL URINE CHEM 1 2 3 Most recent to oldest [Reference Range]: 516 mOsm/kg (01/28/15 5:46 AM) 302 mOsm/kg (01/26/15 6:23 AM) 83 mOsm/kg *LOW* (01/25/15 9:43 PM) U Osmolality [300-800 mOsm/kg] URINE AND STOOL 1 2 3 Most recent to oldest [Reference Range]: Clear (01/24/15 8:22 PM) UA Turbidity [Clear] Yellow *NA* (01/24/15 8:22 PM) UA Color [Yellow] 6.0 (01/24/15 8:22 PM) UA pH [5.0-8.0] >=1.030 *ABN* (01/24/15 8:22 PM) UA Spec Grav [<=1.030] Negative (01/24/15 8:22 PM) UA Glucose [Negative] Negative (01/24/15 8:22 PM) UA Blood [Negative] 15 mg/dL *ABN* (01/24/15 8:22 PM) UA Ketones [Negative mg/dL] Negative (01/24/15 8:22 PM) UA Protein [Negative] 0.2 EU/dL (01/24/15 8:22 PM) UA Urobilinogen [0.1-1.0 EU/dL] Negative *NA* (01/24/15 8:22 PM) UA Bili [Negative] Negative (01/24/15 8:22 PM) UA Leuk Est [Negative] Negative (01/24/15 8:22 PM) UA Nitrite [Negative] 0-2 /HPF (01/24/15 8:22 PM) UA WBC [None Seen /HPF] 0-2 /HPF (01/24/15 8:22 PM) UA RBC [0-2 /HPF] Occasional /HPF (01/24/15 8:22 PM) UA Bacteria [None Seen /HPF] Occasional /LPF (01/24/15 8:22 PM) UA Sq Epi [Few /LPF] Few /HPF (01/24/15 8:22 PM) UA CaOx Opal [None Seen /HPF] Few /LPF (01/24/15 8:22 PM) UA Mucus [None Seen /LPF] HEMATOLOGY 1 2 3 Most recent to oldest [Reference Range]: 5.6 K/CMM (01/25/15 6:57 AM) 6.0 K/CMM (01/24/15 6:38 PM) WBC [3.7-10.4 K/CMM] 3.69 M/CMM *LOW* (01/25/15 6:57 AM) 3.63 M/CMM *LOW* (01/24/15 6:38 PM) RBC [4.20-5.40 M/CMM] 10.6 g/dL *LOW* (01/25/15 6:57 AM) 10.6 g/dL *LOW* (01/24/15 6:38 PM) Hgb [12.0-16.0 g/dL] 31.6 % *LOW* (01/25/15 6:57 AM) 31.1 % *LOW* (01/24/15 6:38 PM) Hct [36.0-48.0 %] 85.8 fL (01/25/15 6:57 AM) 85.8 fL (01/24/15 6:38 PM) MCV [80.0-98.0 fL] 28.8 pg (01/25/15 6:57 AM) 29.3 pg (01/24/15 6:38 PM) MCH [27.0-31.0 pg] 33.6 g/dL (01/25/15 6:57 AM) 34.2 g/dL (01/24/15 6:38 PM) MCHC [32.0-36.0 g/dL] 14.6 % *HI* (01/25/15 6:57 AM) 14.6 % *HI* (01/24/15 6:38 PM) RDW [11.5-14.5 %] 286 K/CMM (01/25/15 6:57 AM) 312 K/CMM (01/24/15 6:38 PM) Platelet [133-450 K/CMM] 7.2 fL *LOW* (01/25/15 6:57 AM) 7.7 fL (01/24/15 6:38 PM) MPV [7.4-10.4 fL] 70.8 % (01/25/15 6:57 AM) 61.2 % (01/24/15 6:38 PM) Segs [45.0-75.0 %] 18.7 % *LOW* (01/25/15 6:57 AM) 28.5 % (01/24/15 6:38 PM) Lymphocytes [20.0-40.0 %] 8.9 % (01/25/15 6:57 AM) 8.2 % (01/24/15 6:38 PM) Monocytes [2.0-12.0 %] 0.9 % (01/25/15 6:57 AM) 1.5 % (01/24/15 6:38 PM) Eosinophils [0.0-4.0 %] 0.7 % (01/25/15 6:57 AM) 0.6 % (01/24/15 6:38 PM) Basophils [0.0-1.0 %] 4.0 K/CMM (01/25/15 6:57 AM) 3.7 K/CMM (01/24/15 6:38 PM) Segs-Bands # [1.5-8.1 K/CMM] 1.1 K/CMM (01/25/15 6:57 AM) 1.7 K/CMM (01/24/15 6:38 PM) Lymphocytes # [1.0-5.5 K/CMM] 0.5 K/CMM (01/25/15 6:57 AM) 0.5 K/CMM (01/24/15 6:38 PM) Monocytes # [0.0-0.8 K/CMM] 0.1 K/CMM (01/25/15 6:57 AM) 0.1 K/CMM (01/24/15 6:38 PM) Eosinophils # [0.0-0.5 K/CMM] 0.0 K/CMM (01/25/15 6:57 AM) 0.0 K/CMM (01/24/15 6:38 PM) Basophils # [0.0-0.2 K/CMM] 13.9 seconds (01/25/15 6:57 AM) PT [12.0-14.7 seconds] 1.07 8 (01/25/15 6:57 AM) INR [0.85-1.17] 33.4 seconds 9 (01/25/15 6:57 AM) PTT [22.9-35.8 seconds] 8Interpretive Data: RECOMMENDED RANGES FOR PROTIME INR: 2.0-3.0 for most medical and surgical thromboembolic states. 2.5-3.5 for artificial heart valves and recurrent embolism. INR SHOULD BE USED ONLY FOR PATIENTS ON STABLE ANTICOAGULANT THERAPY. 9Interpretive Data: Heparin Therapeutic Range: 57 - 92 Seconds BACTERIAL - SEROLOGY 1 2 3 Most recent to oldest [Reference Range]: Negative 10 (01/25/15 9:43 PM) MRSA by PCR 10Interpretive Data: Interpretive Data: The [employer] MRSA [...] Performance characteristics have been verified by the [facility] within the [facility]. The [facility] is authorized under the Clinical Laboratory Improvement Amendment of 1 988 (CLIA-88) to perform high complexity testing. Immunizations Vaccine Date Refusal Reason Hx pneumococcal vaccine 11/12/11 influenza virus vaccine, inactivated 07/02/14 Procedures Procedure Date Related Diagnosis Body Site Bladder operation Cholecystectomy Hernia repair Hysterectomy Insertion of [id number] 1left side. oct 2014 placed Social History [...] smoking Assessment and Plan Extracted from: Title: ID Author: May Sevilla MD Date : 01/30/15 INFECTIOUS DISEASE PROGRESS NOTE 01/30/15 SUBJECTIVE: [...]
--- OUTSIDE RECORDS SUMMARY | 2020-04-14 11:59 | XMS REPORT | Summary of Care ---
Author Author [facility] Organization [facility] Address Unknown Phone Unavailable Encounter TOYIN Mcdowell(ANT) [id number] Date(s): 01/07/16 - 01/07/16 [facility] [address] [place] [address]- Final: Personal history of malignant neoplasm of breast Final: Cardiomegaly Discharge Disposition: Home Attending Physician: Juanjose Meyer MD Admitting Physician: Juanjose Meyer MD Referring Physician: Juanjose Meyer MD Vital Signs Most recent to 1 oldest [Reference Range]: Height 167.64 cm (01/07/16 10:55 AM) Weight 51.818 kg (01/07/16 10:55 AM) Body Mass Index 18.44 m2 (01/07/16 10:55 AM) Problem List Condition Effective Dates Status Health Status Yamilet Lynn 12/22/14 Active baumannii(Confirmed) 1, 2 Arthritis [...] Active syndrome9, 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/01/11 Active [id number], 12 Sprain of foot13, 14 01/01/11 Active Uterine Active prolapse(Confirmed) 1MDRO -- SPUTUM, 12/22/2014 2Problem added by Discern Expert. 3Data migrated from [employer] on 02/11/15. 4Data migrated from [employer] [...] Active Food Shrimp Active NKDA Active Medications Omnipaque 300 100 mL, 200 ml/hr, Route: IV, Drug Form: SOLN, ONCALL, Start date: 01/07/16 11:0 0:00 CDT, Duration: 30 day, Stop date: 02/06/16 10:59:00 CDT Notes: (Same as:Omnipaque 300).WASTE: F/P - Black; E - Municipal Trash Bin Start Date: 01/07/16 Stop Date: 02/06/16 Status: Ordered Results CHEM PANEL Most recent to 1 oldest [Reference Range]: eGFR 74 mL/min/1.73m2 1 *NA* (01/07/16 10:22 AM) POC Creatinine 0.8 mg/dL [0.5-1.4 mg/dL] (01/07/16 10:22 AM) 1Result Comment: The eGFR is calculated using [...] mul tiplied by the estimated BMI. Immunizations Vaccine Date Refusal Reason Hx pneumococcal vaccine 11/12/11 influenza virus vaccine, inactivated 07/02/14 Procedures Procedure Date Related Diagnosis Body Site Bladder operation Cholecystectomy Hernia repair Hysterectomy Insertion of [id number] 1left side. oct 2014 placed Social History [...]
--- OUTSIDE RECORDS SUMMARY | 2020-04-14 11:59 | XMS REPORT | Summary of Care ---
Author Organization Unknown Address Unknown Phone Unavailable Encounter TOYIN Mcdowell(ANT) [id number] Date(s): 12/30/14 - 01/05/15 [facility] [address] [place] [address]- Discharge Disposition: Home Physician Attending: Valdez Holman MD Physician Admitting: Valdez Holman MD Vital Signs 1 2 3 Most recent to oldest [Reference Range]: 167.64 cm (12/30/14 12:53 PM) 167.64 cm (12/30/14 5:55 AM) Height 98.8 DegF (01/05/15 7:29 AM) 98.7 DegF (01/05/15 5:55 AM) 98.4 DegF (01/04/15 7:46 PM) Temperature Oral [96.4-99.1 DegF] 156/88 mmHg *HI* (01/05/15 7:29 AM) 147/72 mmHg *HI* (01/05/15 5:55 AM) 145/83 mmHg *HI* (01/04/15 7:46 PM) Blood Pressure [90-140/60-90 mmHg] 18 BRMIN (01/05/15 9:10 AM) 18 BRMIN (01/05/15 7:29 AM) 20 BRMIN (01/05/15 5:55 AM) Respiratory Rate [14-20 BRMIN] 102 bpm *HI* (01/05/15 7:29 AM) 118 bpm *HI* (01/05/15 5:55 AM) 98 bpm (01/04/15 7:46 PM) Peripheral Pulse Rate [60-100 bpm] 50.54 kg (12/30/14 12:53 PM) 51.364 kg (12/30/14 5:55 AM) Weight 17.98 m2 (12/30/14 12:53 PM) 18.28 m2 (12/30/14 5:55 AM) Body Mass Index Problem List Condition Effective Dates Status Health Status Yamilet Lynn 12/22/14 Active baumannii(Confirmed) 1, 2 Asthma(Confirmed) Active Breast ca(Confirmed) Active Cholecystectomy(Conf Active [...] Active Food Shrimp Active NKDA Active Medications Advair Diskus 250 mcg-50 mcg inhalation powder 1 inhalation, Route: INHALER, Drug Form: AERO, Dosing Weight 51.364, kg, RBID, S tart date: 12/30/14 9:51:00, Duration: 30 day, Stop date: 01/29/15 8:00:00 Start Date: 12/30/14 Stop Date: 12/30/14 Status: Deleted Advair Diskus 500 mcg-50 mcg inhalation powder 1 puff, Route: INHALATION, Drug Form: AERO, Dosing Weight 51.364, kg, BID, Start date: 12/30/14 17:00:00, Duration: 30 day, Stop date: 01/29/15 9:00:00 Start Date: 12/30/14 Stop Date: 12/30/14 Status: Deleted Astelin 137 mcg/inh nasal spray 274 microgram, Route: NASAL, Drug Form: SPRY, Dosing Weight 51.364, kg, PRN, PRN as needed for allergy symptoms, Start date: 12/30/14 11:56:00, Duration: 30 day, Stop date: 01/29/15 11:55:00 Notes: (azelastine 137 microgram/inh 34 ml nasal SPR) Non-formulary drug. Same As: Astelin) Start Date: 12/30/14 Stop Date: 01/05/15 Status: Discontinued budesonide-formoterol 160 mcg-4.5 mcg/inh inhalation aerosol with adapter 2 inhalation, Route: INHALATION, Drug Form: AERO/A, RBID, Start date: 12/30/14 1 2:00:00, Duration: 30 day, Stop date: 01/29/15 8:00:00 Notes: (Same as: Symbicort) Start Date: 12/30/14 Stop Date: 01/05/15 Status: Discontinued budesonide-formoterol 160 mcg-4.5 mcg/inh inhalation aerosol with adapter 2 inhalation, Route: INHALATION, Drug Form: AERO/A, RBID, Start date: 12/30/14 1 2:05:00, Duration: 30 day, Stop date: 01/29/15 8:00:00 Notes: (Same as: Symbicort) Start Date: 12/30/14 Stop Date: 12/30/14 Status: Deleted calcium gluconate + Sodium Chloride 0.9% IV 100 mL 2 gm, 20 mL, Route: IVPB, Drug form: INJ, PRN, Dosing Weight 50.54, kg, PRN Abno rmal Lab Result, For NON-ICU Patients Only., Start date: 01/02/15 11:11:00, Dura tion: 30 day, Stop date: 02/01/15 11:10:00 Start Date: 01/02/15 Stop Date: 01/05/15 Status: Discontinued calcium gluconate + Sodium Chloride 0.9% IV 100 mL 3 gm, 30 mL, Route: IVPB, Drug form: INJ, PRN, Dosing Weight 50.54, kg, PRN Abno rmal Lab Result, For NON-ICU Patients Only., Start date: 01/02/15 11:11:00, Dura tion: 30 day, Stop date: 02/01/15 11:10:00 Start Date: 01/02/15 Stop Date: 01/05/15 Status: Discontinued Colace 100 mg oral capsule 100 mg, 1 cap, Route: PO, Drug form: CAP, BID, Dosing Weight 50.54, kg, Start da te: 01/03/15 12:00:00, Duration: 30 day, Stop date: 02/02/15 9:00:00 Notes: (Same as: Colace) (Do Not Crush) Start Date: 01/03/15 Stop Date: 01/05/15 Status: Discontinued Colistin Nebulization Colistin Nebulization, 100 mg, Route: NEB, RQ12H, 12/31/14 14:46:00, Stop date: 01/30/15 4:00:00 Start Date: 12/31/14 Stop Date: 01/05/15 Status: Discontinued Compazine 5 mg, 0.5 tab, Route: PO, Drug form: TAB, Q6H, PRN Nausea & Vomiting, Start date: 12/30/14 20:06:00, Duration: 30 day, Stop date: 01/29/15 20:05:00 Notes: (Same as: Compazine) Start Date: 12/30/14 Stop Date: 01/05/15 Status: Discontinued Diovan 80 mg, 1 tab, Route: PO, Drug form: TAB, Daily, Dosing Weight 51.364, kg, Start date: 12/31/14 9:00:00, Duration: 30 day, Stop date: 01/29/15 9:00:00 Notes: Same as Diovan Start Date: 12/31/14 Stop Date: 01/05/15 Status: Discontinued enoxaparin 40 mg, 0.4 mL, Route: SUB-Q, Drug form: INJ, [id number], Dosing Weight 51.364, kg, Start date: 12/30/14 10:00:00, Duration: 30 day, Stop date: 01/28/15 10:00:00 Notes: (Same as: Lovenox) Start Date: 12/30/14 Stop Date: 01/05/15 Status: Discontinued fluticasone nasal 0.05 mg/inh spray 50 microgram, Route: NASAL, Drug Form: SPRY, Dosing Weight 51.364, kg, PRN, PRN Allergic reaction, Start date: 12/30/14 11:57:00, Duration: 30 day, Stop date: 0 01/29/15 11:56:00 Notes: (Same as: Flonase) Start Date: 12/30/14 Stop Date: 01/05/15 Status: Discontinued guaiFENesin 200 mg, 10 mL, Route: PO, Drug form: LIQ, QID, Dosing Weight 50.54, kg, Priority : NOW, Start date: 01/01/15 10:21:00, Duration: 30 day, Stop date: 01/31/15 9:00 :00 Notes: (Same as: Robitussin) Start Date: 01/01/15 Stop Date: 01/05/15 Status: Discontinued hydrALAZINE 20 mg, 1 mL, Route: IVP, Drug form: INJ, Q4H, Dosing Weight 51.364, kg, PRN Hype rtension, Start date: 12/30/14 9:47:00, Duration: 30 day, Stop date: 01/29/15 9: 46:00 Notes: (Same as: Apresoline)Push over 5 minutes Start Date: 12/30/14 Stop Date: 01/05/15 Status: Discontinued lactulose 20 gm, 30 ml, Route: PO, Drug Form: SYRP, Dosing Weight 50.54, kg, ABXQ6H, PRN a s needed for constipation, Start date: 01/03/15 10:16:00, Duration: 30 day, Stop date: 02/02/15 10:15:00 Notes: (Same as:Chronulac) Start Date: 01/03/15 Stop Date: 01/05/15 Status: Discontinued levothyroxine 75 microgram, 1 tab, Route: PO, Drug form: TAB, [id number], Dosing Weight 51.364, kg , Start date: 12/31/14 6:30:00, Duration: 30 day, Stop date: 01/29/15 6:30:00 Notes: Take 1 hour before or 2 hours after meal; Enteral feeds may interefere wi th the absorption of this medication. (Same as:Synthroid, Levothroid) Start Date: 12/31/14 Stop Date: 01/05/15 Status: Discontinued magnesium oxide 800 mg, 2 tab, Route: PO, Drug form: TAB, PRN, Dosing Weight 50.54, kg, PRN Abno rmal Lab Result, For NON-ICU Patients Only., Start date: 01/02/15 11:11:00, Dura tion: 30 day, Stop date: 02/01/15 11:10:00 Notes: (Same as: Mag-Ox 400)Magnesium oxide [id number] elemental magnesiumDose= ____mg magnesium oxide (___mg elemental magnesium) Start Date: 01/02/15 Stop Date: 01/05/15 Status: Discontinued magnesium sulfate 2 gm, 50 mL, Route: IVPB, Drug form: INJ, PRN, Dosing Weight 50.54, kg, PRN Abno rmal Lab Result, For NON-ICU Patients Only., Start date: 01/02/15 11:11:00, Dura tion: 30 day, Stop date: 02/01/15 11:10:00 Start Date: 01/02/15 Stop Date: 01/05/15 Status: Discontinued magnesium sulfate 1 gm, 100 mL, Route: IVPB, Drug form: INJ, PRN, Dosing Weight 50.54, kg, PRN Abn ormal Lab Result, For NON-ICU Patients Only., Start date: 01/02/15 11:11:00, Dur ation: 30 day, Stop date: 02/01/15 11:10:00 Start Date: 01/02/15 Stop Date: 01/05/15 Status: Discontinued Megace 400 mg, 10 mL, Route: PO, Drug form: SUSP, BID, Dosing Weight 50.54, kg, Start d ate: 12/31/14 17:00:00, Duration: 30 day, Stop date: 01/30/15 9:00:00 Start Date: 12/31/14 Stop Date: 01/04/15 Status: Discontinued Nasal Saline 0.65% solution 2 drp, Route: NASAL, Q2H, Drug form: SOLN, Start date: 01/04/15 12:00:00, Durati on: 30 day, Stop date: 02/03/15 10:00:00 Notes: (Same as: [place], [place] Nasal [place]). Start Date: 01/04/15 Stop Date: 01/05/15 Status: Discontinued Phenergan 25 mg, 1 supp, Route: AK, Drug form: SUPP, Q4H, Dosing Weight 51.364, kg, PRN Na usea & Vomiting, Start date: 12/30/14 11:54:00, Duration: 30 day, Stop date: 01/29/15 11:53:00 Notes: (Same as: Phenergan) Start Date: 12/30/14 Stop Date: 01/05/15 Status: Discontinued potassium chloride 10 mEq, 100 mL, Route: IVPB, Drug form: INJ, PRN, Dosing Weight 50.54, kg, PRN A bnormal Lab Result, For NON-ICU Patients Only, Start date: 01/02/15 11:11:00, Du ration: 30 day, Stop date: 02/01/15 11:10:00 Notes: Infuse at a rate of 10 mEq/hr.(Same as: KCL) Start Date: 01/02/15 Stop Date: 01/05/15 Status: Discontinued potassium chloride 20 mEq, 1 tab, Route: PO, Drug form: ERTAB, PRN, Dosing Weight 50.54, kg, PRN Ab normal Lab Result, For NON-ICU Patients Only, Start date: 01/02/15 11:11:00, Dur ation: 30 day, Stop date: 02/01/15 11:10:00 Notes: (Same as: K-Dur 20)"Do Not Crush" With food and full glass of water Start Date: 01/02/15 Stop Date: 01/05/15 Status: Discontinued potassium chloride 20 mEq, 15 mL, Route: NJ, Drug form: LIQ, PRN, Dosing Weight 50.54, kg, PRN Abno rmal Lab Result, For NON-ICU Patients Only, Start date: 01/02/15 11:11:00, Durat ion: 30 day, Stop date: 02/01/15 11:10:00 Notes: (Same as: Potassium Chloride) Start Date: 01/02/15 Stop Date: 01/05/15 Status: Discontinued potassium phosphate + Sodium Chloride 0.9% IV 250 mL 30 mmol, 10 mL, Route: IVPB, Drug form: INJ, PRN, Dosing Weight 50.54, kg, PRN A bnormal Lab Result, For NON-ICU Patients Only., Start date: 01/02/15 11:11:00, D uration: 30 day, Stop date: 02/01/15 11:10:00 Notes: (Same as: K Phosphate.) 1 mMol phoshate has 1.47 mEq potassium Infuse o yady 4 hours Start Date: 01/02/15 Stop Date: 01/05/15 Status: Discontinued potassium phosphate + Sodium Chloride 0.9% IV 250 mL 15 mmol, 5 mL, Route: IVPB, Drug form: INJ, PRN, Dosing Weight 50.54, kg, PRN Ab normal Lab Result, For NON-ICU Patients Only., Start date: 01/02/15 11:11:00, Du ration: 30 day, Stop date: 02/01/15 11:10:00 Notes: (Same as: K Phosphate.) 1 mMol phoshate has 1.47 mEq potassium Infuse o yady 4 hours Start Date: 01/02/15 Stop Date: 01/05/15 Status: Discontinued potassium phosphate-sodium phosphate 250 mg-278 mg-164 mg oral powder 2 pkt, Route: PO, Drug Form: PDR/REC, Dosing Weight 50.54, kg, PRN, PRN Abnormal Lab Result, For NON-ICU Patients Only, Start date: 01/02/15 11:11:00, Duration: 30 day, Stop date: 02/01/15 11:10:00 Notes: (Same as: Neutra-Phos) Each 1.25 gm pkt has 250mg phosphorous. Mix w/2.5 oz water and stir. Start Date: 01/02/15 Stop Date: 01/05/15 Status: Discontinued prochlorperazine 5 mg, 1 tab, Route: PO, Drug form: TAB, Q6H, Dosing Weight 51.364, kg, PRN Nause a & Vomiting, Start date: 12/30/14 11:54:00, Duration: 30 day, Stop date: 01/29/15 11:53:00, .. Special Instructions: .. Notes: (Same as: Compazine) Start Date: 12/30/14 Stop Date: 12/30/14 Status: Deleted Protonix 40 mg, 1 tab, Route: PO, Drug form: ECTAB, Before Dinner, Dosing Weight 50.54, k g, Priority: NOW, Start date: 12/31/14 12:45:00, Duration: 30 day, Stop date: 16:30:00 Notes: Tablet should not be chewed or crushed.(Same as: Protonix) Start Date: 12/31/14 Stop Date: 01/05/15 Status: Discontinued Reglan 10 mg, 2 mL, Route: IV, Drug form: INJ, Q6H, Dosing Weight 51.364, kg, PRN as ne eded for nausea/vomiting, Start date: 12/30/14 10:46:00, Duration: 30 day, Stop date: 01/29/15 10:45:00 Notes: (Same as: Reglan) Start Date: 12/30/14 Stop Date: 01/05/15 Status: Discontinued Saline Flush 0.9% 5 ml, Route: IVP, Drug Form: INJ, Dosing Weight 50.54, kg, Q12H, Start date: 21:00:00, Stop date: 01/31/15 9:00:00 Notes: Same as: BD Posiflush Sterile Start Date: 01/01/15 Stop Date: 01/05/15 Status: Discontinued Saline Flush 0.9% 5 ml, Route: IVP, Drug Form: INJ, Dosing Weight 50.54, kg, PRN, PRN Line Flush, Start date: 01/01/15 10:18:00, Stop date: 01/31/15 10:17:00 Notes: Same as: BD Posiflush Sterile Start Date: 01/01/15 Stop Date: 01/02/15 Status: Discontinued Saline Flush 0.9% 10 ml, Route: IVP, Drug Form: INJ, Dosing Weight 51.364, kg, PRN, PRN Line Flush , Start date: 12/30/14 10:46:00, Duration: 30 day, Stop date: 01/29/15 10:45:00 Notes: Same as: BD Posiflush Sterile Start Date: 12/30/14 Stop Date: 01/05/15 Status: Discontinued sodium chloride 10 mL, Route: NEB, Start date: 12/31/14 14:55:00, Duration: 30 day, Stop date: 0 01/30/15 14:54:00, PRN Other -See Comment Notes: preservative free. Start Date: 12/31/14 Stop Date: 01/05/15 Status: Discontinued Sodium Chloride 0.9% (Bolus) IV 1,000 mL, 1000 ml/hr, Infuse Over: 1 hr, Route: IV, 1,000, Drug form: INJ, ONCE, Priority: STAT, Dosing Weight 51.364 kg, Start date: 12/30/14 7:06:00, Duration: 1 doses or times, Stop date: 12/30/14 7:06:00 Start Date: 12/30/14 Stop Date: 12/30/14 Status: Completed Sodium Chloride 0.9% IV 1,000 mL 1,000 mL, Rate: 60 ml/hr, Infuse over: 16.7 hr, Route: IV, Dosing Weight 50.54 k g, Total Volume: 1,000, Start date: 12/31/14 10:19:00, Duration: 30 day, Stop da te: 01/30/15 10:18:00 Start Date: 12/31/14 Stop Date: 12/31/14 Status: Discontinued Sodium Chloride 0.9% IV 1,000 mL 1,000 mL, Rate: 125 ml/hr, Infuse over: 8 hr, Route: IV, Dosing Weight 50.54 kg, Total Volume: 1,000, Start date: 12/31/14 18:21:00, Duration: 30 day, Stop date: 01/30/15 18:20:00 Start Date: 12/31/14 Stop Date: 01/01/15 Status: Discontinued Sodium Chloride 0.9% IV 1,000 mL 1,000 mL, Rate: 125 ml/hr, Infuse over: 8 hr, Route: IV, Dosing Weight 51.364 kg , Total Volume: 1,000, Start date: 12/30/14 10:46:00, Duration: 30 day, Stop june e: 01/29/15 10:45:00 Start Date: 12/30/14 Stop Date: 12/30/14 Status: Deleted Sodium Chloride 0.9% IV 1,000 mL 1,000 mL, Rate: 125 ml/hr, Infuse over: 8 hr, Route: IV, Dosing Weight 51.364 kg , Total Volume: 1,000, Start date: 12/30/14 8:39:00, Duration: 30 day, Stop date : 01/29/15 8:38:00 Start Date: 12/30/14 Stop Date: 12/31/14 Status: Discontinued sodium chloride 1 gm oral tablet 1 gm, 1 tab, Route: PO, Drug form: TAB, Daily, Dosing Weight 51.364, kg, Start d ate: 12/31/14 9:00:00, Duration: 30 day, Stop date: 01/29/15 9:00:00 Start Date: 12/31/14 Stop Date: 01/05/15 Status: Discontinued sodium phosphate + Sodium Chloride 0.9% IV 250 mL 15 mmol, 5 mL, Route: IVPB, Drug form: INJ, PRN, Dosing Weight 50.54, kg, PRN Ab normal Lab Result, For NON-ICU Patients Only., Start date: 01/02/15 11:11:00, Du ration: 30 day, Stop date: 02/01/15 11:10:00 Start Date: 01/02/15 Stop Date: 01/05/15 Status: Discontinued sodium phosphate + Sodium Chloride 0.9% IV 250 mL 30 mmol, 10 mL, Route: IVPB, Drug form: INJ, PRN, Dosing Weight 50.54, kg, PRN A bnormal Lab Result, For NON-ICU Patients Only., Start date: 01/02/15 11:11:00, D uration: 30 day, Stop date: 02/01/15 11:10:00 Start Date: 01/02/15 Stop Date: 01/05/15 Status: Discontinued Spiriva 18 mcg inhalation capsule 18 microgram, 1 inhalation, Route: INHALATION, Drug form: CAP, Daily, Dosing Dejuan ght 51.364, kg, Start date: 12/31/14 9:00:00, Duration: 30 day, Stop date: 01/29 9:00:00 Notes: (Same As: Spiriva) Start Date: 12/31/14 Stop Date: 12/30/14 Status: Deleted Spiriva 18 mcg inhalation capsule 18 microgram, 1 inhalation, Route: INHALATION, Drug form: CAP, Daily, Dosing Dejuan ght 51.364, kg, Start date: 12/31/14 9:00:00, Duration: 30 day, Stop date: 01/29 9:00:00 Notes: (Same As: Spiriva) Start Date: 12/31/14 Stop Date: 01/05/15 Status: Discontinued Tessalon Perles 100 mg, 1 cap, Route: PO, Drug form: CAP, TID, Dosing Weight 50.54, kg, PRN Coug h, Start date: 01/04/15 10:49:00, Duration: 30 day, Stop date: 02/03/15 10:48:00 Notes: (Same As: Tessalon Perles)"Do Not Crush" Start Date: 01/04/15 Stop Date: 01/05/15 Status: Discontinued tolvaptan 15 mg, 1 tab, Route: PO, Drug form: TAB, Daily, Dosing Weight 51.364, kg, Start date: 12/31/14 9:00:00, Duration: 30 day, Stop date: 01/29/15 9:00:00 Notes: Same as: [place] Start Date: 12/31/14 Stop Date: 01/05/15 Status: Discontinued Tylenol 650 mg, 2 tab, Route: PO, Drug form: TAB, Q6H, Dosing Weight 51.364, kg, PRN For Temp > 100.4 F, Start date: 12/30/14 9:47:00, Duration: 30 day, Stop date: 01/29/15 9:46:00 Notes: Do not exceed 4 gm/day. (Same as: Tylenol) Start Date: 12/30/14 Stop Date: 01/05/15 Status: Discontinued Tylenol 650 mg, 2 tab, Route: PO, Drug form: TAB, Q6H, Dosing Weight 51.364, kg, PRN Juaquin n Score 1-3, Start date: 12/30/14 9:47:00, Duration: 30 day, Stop date: 01/29/15 9:46:00 Notes: Do not exceed 4 gm/day. (Same as: Tylenol) Start Date: 12/30/14 Stop Date: 01/05/15 Status: Discontinued Ventolin HFA 90 mcg/inh inhalation aerosol with adapter 180 microgram, Route: INHALATION, Drug Form: AERO/A, Dosing Weight 51.364, kg, Q ID, PRN Shortness of breath, Start date: 12/30/14 12:03:00, Duration: 30 day, St op date: 01/29/15 12:02:00 Notes: Albuterol 90 microgram/inh 8gm HFA Same as: Carito Proventil Start Date: 12/30/14 Stop Date: 01/05/15 Status: Discontinued Vitamin C 1,000 mg, 2 tab, Route: PO, Drug form: TAB, Daily, Dosing Weight 51.364, kg, Sta rt date: 12/31/14 9:00:00, Duration: 30 day, Stop date: 01/29/15 9:00:00 Notes: (Same as: Vitamin C) Start Date: 12/31/14 Stop Date: 01/05/15 Status: Discontinued Zofran 4 mg, 2 mL, Route: IV, Drug form: INJ, Q8H, Dosing Weight 51.364, kg, PRN Nausea , Start date: 12/30/14 9:47:00, Duration: 30 day, Stop date: 01/29/15 9:46:00 Notes: (Same as: Zofran) MEDICATION WASTE Product Size: 4 mgProduct Was bradly: ___ mg Start Date: 12/30/14 Stop Date: 01/05/15 Status: Discontinued Zofran 4 mg, 2 mL, Route: IVP, Drug form: INJ, ONCE, Dosing Weight 51.364, kg, Priority : STAT, Start date: 12/30/14 7:06:00, Stop date: 12/30/14 7:06:00 Notes: (Same as: Zofran) MEDICATION WASTE Product Size: 4 mgProduct Was bradly: 0___ mg Start Date: 12/30/14 Stop Date: 12/30/14 Status: Completed Results ELECTROLYTES 1 2 3 Most recent to oldest [Reference Range]: 136 mEq/L (01/03/15 3:19 AM) 134 mEq/L *LOW* (01/02/15 6:05 AM) 137 mEq/L (01/01/15 6:18 AM) Sodium Lvl [135-145 mEq/L] 3.4 mEq/L *LOW* (01/03/15 3:19 AM) 3.1 mEq/L *LOW* (01/02/15 6:05 AM) 3.1 mEq/L *LOW* (01/01/15 6:18 AM) Potassium Lvl [3.5-5.1 mEq/L] 104 mEq/L (01/03/15 3:19 AM) 104 mEq/L (01/02/15 6:05 AM) 105 mEq/L (01/01/15 6:18 AM) Chloride Lvl [95-109 mEq/L] 27 mEq/L (01/03/15 3:19 AM) 24 mEq/L (01/02/15 6:05 AM) 23 mEq/L *LOW* (01/01/15 6:18 AM) CO2 [24-32 mEq/L] 8.4 mEq/L *LOW* (01/03/15 3:19 AM) 9.1 mEq/L *LOW* (01/02/15 6:05 AM) 12.1 mEq/L (01/01/15 6:18 AM) AGAP [10.0-20.0 mEq/L] CHEM PANEL 1 2 3 Most recent to oldest [Reference Range]: 0.6 mg/dL (01/03/15 3:19 AM) 0.5 mg/dL (01/02/15 6:05 AM) 0.7 mg/dL (01/01/15 6:18 AM) Creatinine Lvl [0.5-1.4 mg/dL] 93 mL/min/1.73m2 1 *NA* (01/03/15 3:19 AM) 98 mL/min/1.73m2 2 *NA* (01/02/15 6:05 AM) 88 mL/min/1.73m2 3 *NA* (01/01/15 6:18 AM) eGFR 5 mg/dL *LOW* (01/03/15 3:19 AM) 1 mg/dL *LOW* (01/02/15 6:05 AM) 3 mg/dL *LOW* (01/01/15 6:18 AM) BUN [7-22 mg/dL] 12 (12/30/14 3:29 PM) 13 (12/30/14 6:55 AM) B/C Ratio [6-25] 101 mg/dL 4 *HI* (01/03/15 3:19 AM) 92 mg/dL 5 (01/02/15 6:05 AM) 126 mg/dL 6 *HI* (01/01/15 6:18 AM) Glucose Lvl [70-99 mg/dL] 6.2 g/dL *LOW* (12/30/14 3:29 PM) 7.1 g/dL (12/30/14 6:55 AM) Total Protein [6.4-8.4 g/dL] 3.2 g/dL *LOW* (12/30/14 3:29 PM) 3.6 g/dL (12/30/14 6:55 AM) Albumin Lvl [3.5-5.0 g/dL] 3.0 g/dL (12/30/14 3:29 PM) 3.5 g/dL (12/30/14 6:55 AM) Globulin [2.0-4.0 g/dL] 1.1 (12/30/14 3:29 PM) 1.0 (12/30/14 6:55 AM) A/G Ratio [0.7-1.6] 8.7 mg/dL (01/03/15 3:19 AM) 8.5 mg/dL (01/02/15 6:05 AM) 8.3 mg/dL *LOW* (01/01/15 6:18 AM) Calcium Lvl [8.5-10.5 mg/dL] 21 unit/L (12/30/14 3:29 PM) 23 unit/L (12/30/14 6:55 AM) ALT [0-65 unit/L] 21 unit/L (12/30/14 3:29 PM) 26 unit/L (12/30/14 6:55 AM) AST [0-37 unit/L] 85 unit/L (12/30/14 3:29 PM) 102 unit/L (12/30/14 6:55 AM) Alk Phos [39-136 unit/L] 0.6 mg/dL (12/30/14 3:29 PM) 0.5 mg/dL (12/30/14 6:55 AM) Bili Total [0.2-1.3 mg/dL] 44 unit/L (12/30/14 6:55 AM) Amylase Lvl [25-115 unit/L] 120 unit/L (12/30/14 6:55 AM) Lipase Lvl [73-393 unit/L] 0.5 mMol/L (12/30/14 8:18 AM) Lactic Acid Lvl [0.5-2.2 mMol/L] 1Result Comment: The eGFR is calculated using [...] values reflect the clinical guidelines of the [place] [employer]. 5Interpretive Data: Adult reference range values reflect the clinical guidelines of the [place] [employer]. 6Interpretive Data: Adult reference range values reflect the clinical guidelines of the [place] [employer]. URINE AND STOOL 1 2 3 Most recent to oldest [Reference Range]: Slight Cloudy (12/30/14 9:41 AM) UA Turbidity [Clear] Yellow *NA* (12/30/14 9:41 AM) UA Color [Yellow] 8.5 *HI* (12/30/14 9:41 AM) UA pH [5.0-8.0] 1.015 (12/30/14 9:41 AM) UA Spec Grav [<=1.030] Negative mg/dL (12/30/14 9:41 AM) UA Glucose [Negative mg/dL] Negative (12/30/14 9:41 AM) UA Blood [Negative] 40 mg/dL *ABN* (12/30/14 9:41 AM) UA Ketones [Negative mg/dL] Negative mg/dL (12/30/14 9:41 AM) UA Protein [Negative mg/dL] 1.0 EU/dL (12/30/14 9:41 AM) UA Urobilinogen [0.1-1.0 EU/dL] Negative *NA* (12/30/14 9:41 AM) UA Bili [Negative] Negative (12/30/14 9:41 AM) UA Leuk Est [Negative] Negative (12/30/14 9:41 AM) UA Nitrite [Negative] 0-2 /HPF (12/30/14 9:41 AM) UA WBC [None Seen /HPF] None Seen (12/30/14 9:41 AM) UA RBC [0-2] Occasional /HPF (12/30/14 9:41 AM) UA Bacteria [None Seen /HPF] Occasional /LPF (12/30/14 9:41 AM) UA Sq Epi [Few /LPF] Moderate /HPF *ABN* (12/30/14 9:41 AM) UA Amorph Opal [None Seen /HPF] Performed (12/30/14 9:41 AM) Micro? IMMUNOLOGY 1 2 3 Most recent to oldest [Reference Range]: 13.1 mg/dL *LOW* (12/31/14 8:55 AM) Prealbumin [18.0-45.0 mg/dL] HEMATOLOGY 1 2 3 Most recent to oldest [Reference Range]: 5.1 K/CMM (01/03/15 3:19 AM) 5.0 K/CMM (01/02/15 6:05 AM) 3.4 K/CMM *LOW* (01/01/15 6:18 AM) WBC [3.7-10.4 K/CMM] 3.36 M/CMM *LOW* (01/03/15 3:19 AM) 3.52 M/CMM *LOW* (01/02/15 6:05 AM) 3.72 M/CMM *LOW* (01/01/15 6:18 AM) RBC [4.20-5.40 M/CMM] 9.6 g/dL *LOW* (01/03/15 3:19 AM) 10.1 g/dL *LOW* (01/02/15 6:05 AM) 10.6 g/dL *LOW* (01/01/15 6:18 AM) Hgb [12.0-16.0 g/dL] 28.5 % *LOW* (01/03/15 3:19 AM) 30.0 % *LOW* (01/02/15 6:05 AM) 31.9 % *LOW* (01/01/15 6:18 AM) Hct [36.0-48.0 %] 84.9 fL (01/03/15 3:19 AM) 85.2 fL (01/02/15 6:05 AM) 85.8 fL (01/01/15 6:18 AM) MCV [80.0-98.0 fL] 28.5 pg (01/03/15 3:19 AM) 28.6 pg (01/02/15 6:05 AM) 28.6 pg (01/01/15 6:18 AM) MCH [27.0-31.0 pg] 33.6 g/dL (01/03/15 3:19 AM) 33.6 g/dL (01/02/15 6:05 AM) 33.3 g/dL (01/01/15 6:18 AM) MCHC [32.0-36.0 g/dL] 14.8 % *HI* (01/03/15 3:19 AM) 14.9 % *HI* (01/02/15 6:05 AM) 14.6 % *HI* (01/01/15 6:18 AM) RDW [11.5-14.5 %] 457 K/CMM *HI* (01/03/15 3:19 AM) 503 K/CMM *HI* (01/02/15 6:05 AM) 565 K/CMM *HI* (01/01/15 6:18 AM) Platelet [133-450 K/CMM] 7.6 fL (01/03/15 3:19 AM) 7.6 fL (01/02/15 6:05 AM) 7.4 fL (01/01/15 6:18 AM) MPV [7.4-10.4 fL] 60.4 % (01/03/15 3:19 AM) 52.1 % (01/02/15 6:05 AM) 54.3 % (01/01/15 6:18 AM) Segs [45.0-75.0 %] 28.6 % (01/03/15 3:19 AM) 34.0 % (01/02/15 6:05 AM) 30.3 % (01/01/15 6:18 AM) Lymphocytes [20.0-40.0 %] 9.7 % (01/03/15 3:19 AM) 12.1 % *HI* (01/02/15 6:05 AM) 14.2 % *HI* (01/01/15 6:18 AM) Monocytes [2.0-12.0 %] 0.2 % (01/03/15 3:19 AM) 0.7 % (01/02/15 6:05 AM) 0.7 % (01/01/15 6:18 AM) Eosinophils [0.0-4.0 %] 1.1 % *HI* (01/03/15 3:19 AM) 1.1 % *HI* (01/02/15 6:05 AM) 0.5 % (01/01/15 6:18 AM) Basophils [0.0-1.0 %] 3.1 K/CMM (01/03/15 3:19 AM) 2.6 K/CMM (01/02/15 6:05 AM) 1.8 K/CMM (01/01/15 6:18 AM) Segs-Bands # [1.5-8.1 K/CMM] 1.5 K/CMM (01/03/15 3:19 AM) 1.7 K/CMM (01/02/15 6:05 AM) 1.0 K/CMM (01/01/15 6:18 AM) Lymphocytes # [1.0-5.5 K/CMM] 0.5 K/CMM (01/03/15 3:19 AM) 0.6 K/CMM (01/02/15 6:05 AM) 0.5 K/CMM (01/01/15 6:18 AM) Monocytes # [0.0-0.8 K/CMM] 0.0 K/CMM (01/03/15 3:19 AM) 0.0 K/CMM (01/02/15 6:05 AM) 0.0 K/CMM (01/01/15 6:18 AM) Eosinophils # [0.0-0.5 K/CMM] 0.1 K/CMM (01/03/15 3:19 AM) 0.1 K/CMM (01/02/15 6:05 AM) 0.0 K/CMM (01/01/15 6:18 AM) Basophils # [0.0-0.2 K/CMM] 1+ *ABN* (12/31/14 8:56 AM) Anisocyte [None Seen] Moderate *ABN* (12/31/14 8:56 AM) Large Plt [None Seen] 34.3 seconds 7 (12/30/14 3:29 PM) PTT [22.9-35.8 seconds] 7Interpretive Data: Heparin Therapeutic Range: 57 - 92 Seconds MOLECULAR DIAGNOSTIC 1 2 3 Most recent to oldest [Reference Range]: Negative 8 (12/31/14 1:07 PM) C difficile DNA [Negative] 8Interpretive Data: Flipboard [employer] Clostridium difficile assay utilizes loop-mediated isothermal DNA amplification (LAMP) technology to detect a 204 bp region of the tcdA gene within the PaLoc gene segment present in all known toxigenic C. difficile strains. The assay utilizes FDA cleared IVD reagents. Performance characteristics have be en verified by the [facility] within the [facility]. The [facility] is authorized under the Clinical Labo ratory Improvement Amendment of 1988 (CLIA-88) to perform high complexity testin g. Immunizations Vaccine Date Refusal Reason Hx pneumococcal [...] Smoking Cessation Counseling No Assessment and Plan Extracted from: Title: ID Author: May Sevilla MD Date : 01/04/15 INFECTIOUS DISEASE PROGRESS NOTE 01/04/15 SUBJECTIVE: [...]
--- OUTSIDE RECORDS SUMMARY | 2020-04-14 11:59 | XMS REPORT | Summary of Care ---
Author Organization Unknown Address Unknown Phone Unavailable Encounter TOYIN Mcdowell(ANT) [id number] Date(s): 01/15/15 - 01/19/[address] [facility] [address] [place] [address]- Discharge Disposition: Home Physician Attending: Valdez Holman MD Physician Admitting: Valdez Holman MD Vital Signs 1 2 3 Most recent to oldest [Reference Range]: 167.64 cm (01/15/15 10:45 PM) 167.64 cm (01/15/15 2:54 PM) Height 99.8 DegF *HI* (01/19/15 11:50 AM) 98.5 DegF (01/19/15 6:33 AM) 98.3 DegF (01/18/15 11:54 PM) Temperature Oral [96.4-99.1 DegF] 118/74 mmHg (01/19/15 11:50 AM) 150/81 mmHg *HI* (01/19/15 6:33 AM) 139/71 mmHg (01/18/15 11:54 PM) Blood Pressure [90-140/60-90 mmHg] 18 BRMIN (01/19/15 11:50 AM) 18 BRMIN (01/19/15 6:33 AM) 20 BRMIN (01/18/15 11:54 PM) Respiratory Rate [14-20 BRMIN] 70 bpm (01/19/15 11:50 AM) 84 bpm (01/19/15 6:33 AM) 73 bpm (01/18/15 11:54 PM) Peripheral Pulse Rate [60-100 bpm] 51.932 kg (01/15/15 10:45 PM) 51.364 kg (01/15/15 2:54 PM) Weight 18.48 m2 (01/15/15 10:45 PM) 18.28 m2 (01/15/15 2:54 PM) Body Mass Index Problem List Condition [...] n 1-3/Temp > 100.4 F, Start date: 01/15/15 17:38:00, Duration: 30 day, Stop date: 02/14/15 17:37:00 Notes: Do not exceed 4 gm/day. (Same as: Tylenol) Start Date: 01/15/15 Stop Date: 01/19/15 Status: Discontinued Advair Diskus 500 mcg-50 mcg inhalation powder 1 puff, Route: INHALATION, Drug Form: AERO, Dosing Weight 51.932, kg, BID, Start date: 01/17/15 9:00:00, Duration: 30 day, Stop date: 02/15/15 17:00:00 Start Date: 01/17/15 Stop Date: 01/16/15 Status: Deleted Advair Diskus 500 mcg-50 mcg inhalation powder 1 puff, Route: INHALATION, Dosing Weight 51.364, kg, BID, Start date: 01/16/15 9 :00:00, Duration: 30 day, Stop date: 02/14/15 17:00:00 Start Date: 01/16/15 Stop Date: 01/15/15 Status: Deleted albuterol 1.25 mg, 3 mL, Route: NEB, Drug form: SOLN, RQ8H, PRN Wheezing, Start date: 02/25 18:25:00, Duration: 30 day, Stop date: 02/15/15 18:24:00 Notes: SEE RT DOCUMENTATION (Same as: Jason); pharmacy re entry of e order- - Start Date: 01/16/15 Stop Date: 01/19/15 Status: Discontinued Astelin 2 spray, Route: NASAL, Drug Form: SPRY, Dosing Weight 51.364, kg, BID, Start june e: 01/16/15 9:00:00, Duration: 30 day, Stop date: 02/14/15 17:00:00 Notes: (azelastine 137 microgram/inh 34 ml nasal SPR) Non-formulary drug. Same As: Astelin) Start Date: 01/16/15 Stop Date: 01/19/15 Status: Discontinued budesonide-formoterol 160 mcg-4.5 mcg/inh inhalation aerosol with adapter 2 inhalation, Route: INHALATION, Drug Form: AERO/A, RBID, Start date: 01/15/15 1 7:42:00, Duration: 30 day, Stop date: 02/14/15 8:00:00 Notes: (Same as: Symbicort) Start Date: 01/15/15 Stop Date: 01/19/15 Status: Discontinued Citracal + D 315 mg-250 intl units oral tablet 1 tab, Route: PO, Drug Form: TAB, Dosing Weight 51.932, kg, BID, Start date: 03/27 9:00:00, Duration: 30 day, Stop date: 02/15/15 17:00:00 Notes: (Same As: Citracal Caplets Plus D) Start Date: 01/17/15 Stop Date: 01/19/15 Status: Discontinued Colace 100 mg oral capsule 100 mg, 1 cap, Route: PO, Drug form: CAP, BID, Dosing Weight 51.364, kg, Start d ate: 01/16/15 9:00:00, Duration: 30 day, Stop date: 02/14/15 17:00:00 Notes: (Same as: Colace) (Do Not Crush) Start Date: 01/16/15 Stop Date: 01/19/15 Status: Discontinued demeclocycline 300 mg, 2 tab, Route: PO, Drug form: TAB, BID, Dosing Weight 51.932, kg, Start d ate: 01/17/15 17:00:00, Duration: 30 day, Stop date: 02/16/15 9:00:00 Notes: (Same As: Declomycin) Start Date: 01/17/15 Stop Date: 01/19/15 Status: Discontinued demeclocycline 300 mg oral tablet 300 mg = 1 tab, PO, BID, X 14 day, # 28 tab, 0 Refill(s) Start Date: 01/19/15 Stop Date: 02/02/15 Status: Ordered Diovan 80 mg, 1 tab, Route: PO, Drug form: TAB, BID, Dosing Weight 51.364, kg, Start da te: 01/16/15 9:00:00, Duration: 30 day, Stop date: 02/14/15 17:00:00 Notes: Same as Diovan Start Date: 01/16/15 Stop Date: 01/19/15 Status: Discontinued Dulcolax Laxative 5 mg, 1 tab, Route: PO, Drug form: ECTAB, ONCE, Dosing Weight 51.364, kg, PRN Co nstipation, Start date: 01/15/15 17:06:00 Notes: (Same As: Dulcolax, Correctol) (Do Not Crush) "Do Not Crush" Start Date: 01/15/15 Stop Date: 01/18/15 Status: Completed fluticasone nasal 0.05 mg/inh spray 1 spray, Route: NASAL, Drug Form: SPRY, Dosing Weight 51.932, kg, Daily, Start d ate: 01/17/15 9:00:00, Duration: 30 day, Stop date: 02/15/15 9:00:00 Notes: (Same as: Flonase) Start Date: 01/17/15 Stop Date: 01/19/15 Status: Discontinued hydrALAZINE 20 mg, 1 mL, Route: IVP, Drug form: INJ, Q4H, Dosing Weight 51.364, kg, PRN Hype rtension, Start date: 01/15/15 17:06:00, Duration: 30 day, Stop date: 02/14/15 1 7:05:00 Notes: (Same as: Apresoline)Push over 5 minutes Start Date: 01/15/15 Stop Date: 01/19/15 Status: Discontinued lactulose 20 gm, 30 ml, Route: PO, Drug Form: SYRP, Dosing Weight 51.364, kg, BID, PRN as needed for constipation, STAT, Start date: 01/15/15 17:07:00, Duration: 30 day, Stop date: 02/14/15 17:06:00 Notes: (Same as:Chronulac) Start Date: 01/15/15 Stop Date: 01/19/15 Status: Discontinued levothyroxine 75 microgram, 1 tab, Route: PO, Drug form: TAB, Q630AM, Dosing Weight 51.932, kg , Start date: 01/17/15 6:30:00, Duration: 30 day, Stop date: 02/15/15 6:30:00 Notes: Take 1 hour before or 2 hours after meal; Enteral feeds may interefere wi th the absorption of this medication. (Same as:Synthroid, Levothroid) Start Date: 01/17/15 Stop Date: 01/19/15 Status: Discontinued Lovenox 40 mg, 0.4 mL, Route: SUB-Q, Drug form: INJ, Daily, Dosing Weight 51.364, kg, Pr iority: STAT, Start date: 01/15/15 17:05:00, Duration: 30 day, Stop date: 9:00:00 Notes: (Same as: Lovenox) Start Date: 01/15/15 Stop Date: 01/19/15 Status: Discontinued MiraLax 17 gm, 1 pkt, Route: PO, Drug form: PWDR, Daily, Dosing Weight 51.364, kg, Start date: 01/16/15 9:00:00, Duration: 30 day, Stop date: 02/14/15 9:00:00 Notes: Dissolve in 8 oz of water or juice.(Same as: Miralax) Start Date: 01/16/15 Stop Date: 01/19/15 Status: Discontinued multivitamin 1 tab, Route: PO, Drug Form: TAB, Dosing Weight 51.932, kg, Daily, Start date: 0 01/17/15 9:00:00, Duration: 30 day, Stop date: 02/15/15 9:00:00 Notes: (Same as:One Tab Daily, Tab-A-Nadir + Beta Carotene) Give with food. Start Date: 01/17/15 Stop Date: 01/19/15 Status: Discontinued Okay 10/325 oral tablet 1 tab, Route: PO, Drug Form: TAB, Dosing Weight 51.364, kg, Q6H, PRN Pain Score 1-5, STAT, Start date: 01/15/15 17:08:00, Duration: 30 day, Stop date: 02/14/15 17:07:00 Notes: Do not exceed 4gm/day of acetaminophen. (Same as: Okay 325/10) Start Date: 01/15/15 Stop Date: 01/19/15 Status: Discontinued Okay 5/325 oral tablet 1 tab, Route: PO, Drug Form: TAB, Dosing Weight 51.932, kg, Q6H, Start date: 02/25 18:30:00, Duration: 30 day, Stop date: 02/15/15 18:00:00 Notes: (Same as: Okay 325/5) Do not exceed 4gm/day of acetaminophen. Start Date: 01/16/15 Stop Date: 01/19/15 Status: Discontinued NS 1,000 mL 1,000 mL, Rate: 40 ml/hr, Infuse over: 25 hr, Route: IV, Dosing Weight 51.932 kg , Total Volume: 1,000, Start date: 01/17/15 10:16:00, Duration: 30 day, Stop june e: 02/16/15 10:15:00 Start Date: 01/17/15 Stop Date: 01/18/15 Status: Discontinued NS 1,000 mL 1,000 mL, Rate: 75 ml/hr, Infuse over: 13.3 hr, Route: IV, Dosing Weight 51.364 kg, Total Volume: 1,000, Start date: 01/15/15 17:10:00, Duration: 30 day, Stop d ate: 02/14/15 17:09:00 Start Date: 01/15/15 Stop Date: 01/17/15 Status: Discontinued ondansetron 4 mg, Route: IVP, Q8H, Dosing Weight 51.364, kg, PRN Nausea & Vomiting, Start date: 01/15/15 17:38:00, Duration: 30 day, Stop date: 02/14/15 17:37:00 Start Date: 01/15/15 Stop Date: 01/15/15 Status: Deleted Prilosec 20 mg, Route: PO, Drug form: DRC, Daily, Dosing Weight 51.932, kg, PRN, Start da te: 01/16/15 18:09:00, Duration: 30 day, Stop date: 02/15/15 18:08:00, none Start Date: 01/16/15 Stop Date: 01/16/15 Status: Deleted Protonix 40 mg, 1 tab, Route: PO, Drug form: ECTAB, Daily, PRN See Nurse's Notes, Start d ate: 01/16/15 18:19:00, Duration: 30 day, Stop date: 02/15/15 18:18:00 Notes: Tablet should not be chewed or crushed.(Same as: Protonix) Start Date: 01/16/15 Stop Date: 01/19/15 Status: Discontinued Saline Flush 0.9% 10 ml, Route: IVP, Drug Form: INJ, Dosing Weight 51.364, kg, PRN, PRN Line Flush , Start date: 01/15/15 17:38:00, Duration: 30 day, Stop date: 02/14/15 17:37:00 Notes: Same as: BD Posiflush Sterile Start Date: 01/15/15 Stop Date: 01/19/15 Status: Discontinued Sodium Chloride 0.9% (Bolus) IV 500 mL, 500 ml/hr, Infuse Over: 1 hr, Route: IV, ONCE, Priority: STAT, Dosing We ight 51.364 kg, Start date: 01/15/15 16:23:00, Duration: 1 doses or times, Stop date: 01/15/15 16:23:00 Start Date: 01/15/15 Stop Date: 01/15/15 Status: Completed Spiriva 18 mcg inhalation capsule 18 microgram, 1 inhalation, Route: INHALER, Drug form: CAP, Daily, Dosing Weight 51.932, kg, Start date: 01/17/15 9:00:00, Duration: 30 day, Stop date: 02/15/15 9:00:00 Notes: (Same As: Spiriva) Start Date: 01/17/15 Stop Date: 01/19/15 Status: Discontinued Tylenol 650 mg, Route: PO, Drug form: TAB, Q6H, Dosing Weight 51.364, kg, PRN For Temp > 100.4 F, Start date: 01/15/15 17:06:00, Duration: 30 day, Stop date: 02/14/15 1 7:05:00 Start Date: 01/15/15 Stop Date: 01/15/15 Status: Deleted Tylenol 650 mg, 2 tab, Route: PO, Drug form: TAB, Q6H, Dosing Weight 51.364, kg, PRN Juaquin n Score 1-3, Start date: 01/15/15 17:06:00, Duration: 30 day, Stop date: 5 17:05:00 Notes: Do not exceed 4 gm/day. (Same as: Tylenol) Start Date: 01/15/15 Stop Date: 01/15/15 Status: Deleted Ventolin HFA 90 mcg/inh inhalation aerosol with adapter 2 puff, Route: INHALER, Drug Form: AERO/A, Dosing Weight 51.932, kg, QID, PRN Sh ortness of breath, Start date: 01/16/15 18:14:00, Duration: 30 day, Stop date: 0 02/15/15 18:13:00 Notes: Albuterol 90 microgram/inh 8gm HFA Same as: Brennen Arzatetil Start Date: 01/16/15 Stop Date: 01/19/15 Status: Discontinued Vitamin C 1,000 mg, 2 tab, Route: PO, Drug form: TAB, Daily, Dosing Weight 51.932, kg, Sta rt date: 01/17/15 9:00:00, Duration: 30 day, Stop date: 02/15/15 9:00:00 Notes: (Same as: Vitamin C) Start Date: 01/17/15 Stop Date: 01/19/15 Status: Discontinued Xopenex 0.63 mg, 3 mL, Route: NEB, Drug form: SOLN, Q8H, Dosing Weight 51.932, kg, Start date: 01/17/15 0:00:00, Duration: 30 day, Stop date: 02/15/15 16:00:00 Start Date: 01/17/15 Stop Date: 01/16/15 Status: Deleted Zocor 20 mg, 1 tab, Route: PO, Drug form: TAB, Bedtime, Dosing Weight 51.932, kg, Star t date: 01/16/15 21:00:00, Duration: 30 day, Stop date: 02/14/15 21:00:00 Notes: (Same as: Zocor) Start Date: 01/16/15 Stop Date: 01/19/15 Status: Discontinued Zofran 4 mg, 2 mL, Route: IV, Drug form: INJ, Q8H, Dosing Weight 51.364, kg, PRN Nausea , Start date: 01/15/15 17:06:00, Duration: 30 day, Stop date: 02/14/15 17:05:00 Notes: (Same as: Zofran) MEDICATION WASTE Product Size: 4 mgProduct Was bradly: ___ mg Start Date: 01/15/15 Stop Date: 01/19/15 Status: Discontinued Results ELECTROLYTES 1 2 3 Most recent to oldest [Reference Range]: 130 mEq/L *LOW* (01/19/15 4:09 AM) 130 mEq/L *LOW* (01/18/15 12:59 PM) 133 mEq/L *LOW* (01/17/15 4:34 AM) Sodium Lvl [135-145 mEq/L] 4.4 mEq/L (01/19/15 4:09 AM) 3.6 mEq/L (01/18/15 12:59 PM) 3.9 mEq/L (01/17/15 4:34 AM) Potassium Lvl [3.5-5.1 mEq/L] 98 mEq/L (01/19/15 4:09 AM) 98 mEq/L (01/18/15 12:59 PM) 101 mEq/L (01/17/15 4:34 AM) Chloride Lvl [95-109 mEq/L] 22 mEq/L *LOW* (01/19/15 4:09 AM) 23 mEq/L *LOW* (01/18/15 12:59 PM) 21 mEq/L *LOW* (01/17/15 4:34 AM) CO2 [24-32 mEq/L] 14.4 mEq/L (01/19/15 4:09 AM) 12.6 mEq/L (01/18/15 12:59 PM) 14.9 mEq/L (01/17/15 4:34 AM) AGAP [10.0-20.0 mEq/L] CHEM PANEL 1 2 3 Most recent to oldest [Reference Range]: 0.7 mg/dL (01/19/15 4:09 AM) 0.7 mg/dL (01/18/15 12:59 PM) 0.6 mg/dL (01/17/15 4:34 AM) Creatinine Lvl [0.5-1.4 mg/dL] 88 mL/min/1.73m2 1 *NA* (01/19/15 4:09 AM) 88 mL/min/1.73m2 2 *NA* (01/18/15 12:59 PM) 93 mL/min/1.73m2 3 *NA* (01/17/15:34 AM) eGFR 8 mg/dL (01/19/15 4:09 AM) 9 mg/dL (01/18/15 12:59 PM) 8 mg/dL (01/17/15 4:34 AM) BUN [7-22 mg/dL] 13 (01/18/15 12:59 PM) 13 (01/17/15 4:34 AM) 14 (01/16/15 5:00 AM) B/C Ratio [6-25] 89 mg/dL 4 (01/19/15 4:09 AM) 97 mg/dL 5 (01/18/15 12:59 PM) 88 mg/dL 6 (01/17/15 4:34 AM) Glucose Lvl [70-99 mg/dL] 6.4 g/dL (01/18/15 12:59 PM) 5.8 g/dL *LOW* (01/17/15 4:34 AM) 6.3 g/dL *LOW* (01/16/15 5:00 AM) Total Protein [6.4-8.4 g/dL] 3.1 g/dL *LOW* (01/18/15 12:59 PM) 3.1 g/dL *LOW* (01/17/15 4:34 AM) 3.1 g/dL *LOW* (01/16/15 5:00 AM) Albumin Lvl [3.5-5.0 g/dL] 3.3 g/dL (01/18/15 12:59 PM) 2.7 g/dL (01/17/15 4:34 AM) 3.2 g/dL (01/16/15 5:00 AM) Globulin [2.0-4.0 g/dL] 0.9 (01/18/15 12:59 PM) 1.1 (01/17/15 4:34 AM) 1.0 (01/16/15 5:00 AM) A/G Ratio [0.7-1.6] 8.6 mg/dL (01/19/15 4:09 AM) 8.3 mg/dL *LOW* (01/18/15 12:59 PM) 8.1 mg/dL *LOW* (01/17/15 4:34 AM) Calcium Lvl [8.5-10.5 mg/dL] 14 unit/L (01/18/15 12:59 PM) 13 unit/L (01/17/15 4:34 AM) 15 unit/L (01/16/15 5:00 AM) ALT [0-65 unit/L] 8 unit/L (01/18/15 12:59 PM) 14 unit/L (01/17/15 4:34 AM) 14 unit/L (01/16/15 5:00 AM) AST [0-37 unit/L] 74 unit/L (01/18/15 12:59 PM) 68 unit/L (01/17/15 4:34 AM) 69 unit/L (01/16/15 5:00 AM) Alk Phos [39-136 unit/L] 0.5 mg/dL (01/18/15 12:59 PM) 0.4 mg/dL (01/17/15 4:34 AM) 0.8 mg/dL (01/16/15 5:00 AM) Bili Total [0.2-1.3 mg/dL] 1Result Comment: The [...] values reflect the clinical guidelines of the [place] [employer]. 5Interpretive Data: Adult reference range values reflect the clinical guidelines of the [place] [employer]. 6Interpretive Data: Adult reference range values reflect the clinical guidelines of the [place] [employer]. CARDIAC ENZYMES 1 2 3 Most recent to oldest [Reference Range]: 30 unit/L (01/15/15 4:45 PM) Total CK [12-191 unit/L] <0.5 ng/mL (01/15/15 4:45 PM) CK MB [0.5-3.6 ng/mL] <1.7 (01/15/15 4:45 PM) CK MB Index [0.0-2.5] <0.02 ng/mL (01/15/15 4:45 PM) Troponin-I [0.00-0.40 ng/mL] URINE AND STOOL 1 2 3 Most recent to oldest [Reference Range]: Clear (01/15/15 11:35 PM) UA Turbidity [Clear] STRAW *NA* (01/15/15 11:35 PM) UA Color 6.0 (01/15/15 11:35 PM) UA pH [5.0-8.0] <=1.005 *NA* (01/15/15 11:35 PM) UA Spec Grav [<=1.030] Negative (01/15/15 11:35 PM) UA Glucose [Negative] Negative (01/15/15 11:35 PM) UA Blood [Negative] 15 mg/dL *ABN* (01/15/15 11:35 PM) UA Ketones [Negative mg/dL] Negative (01/15/15 11:35 PM) UA Protein [Negative] 0.2 EU/dL (01/15/15 11:35 PM) UA Urobilinogen [0.1-1.0 EU/dL] Negative *NA* (01/15/15 11:35 PM) UA Bili [Negative] Trace *ABN* (01/15/15 11:35 PM) UA Leuk Est [Negative] Negative (01/15/15 11:35 PM) UA Nitrite [Negative] 0-2 /HPF (01/15/15 11:35 PM) UA WBC [None Seen /HPF] None Seen (01/15/15 11:35 PM) UA RBC [0-2] None Seen (01/15/15 11:35 PM) UA Bacteria [None Seen] Rare /LPF (01/15/15 11:35 PM) UA Sq Epi [Few /LPF] None Seen (01/15/15 11:35 PM) UA Mucus [None Seen] Performed (01/15/15 11:35 PM) Micro? HEMATOLOGY 1 2 3 Most recent to oldest [Reference Range]: 6.4 K/CMM (01/18/15 12:59 PM) 5.6 K/CMM (01/17/15 4:34 AM) 5.3 K/CMM (01/16/15 5:00 AM) WBC [3.7-10.4 K/CMM] 3.64 M/CMM *LOW* (01/18/15 12:59 PM) 3.55 M/CMM *LOW* (01/17/15 4:34 AM) 3.71 M/CMM *LOW* (01/16/15 5:00 AM) RBC [4.20-5.40 M/CMM] 10.4 g/dL *LOW* (01/18/15 12:59 PM) 10.4 g/dL *LOW* (01/17/15 4:34 AM) 11.0 g/dL *LOW* (01/16/15 5:00 AM) Hgb [12.0-16.0 g/dL] 31.8 % *LOW* (01/18/15 12:59 PM) 30.9 % *LOW* (01/17/15 4:34 AM) 32.1 % *LOW* (01/16/15 5:00 AM) Hct [36.0-48.0 %] 87.6 fL (01/18/15 12:59 PM) 86.9 fL (01/17/15 4:34 AM) 86.5 fL (01/16/15 5:00 AM) MCV [80.0-98.0 fL] 28.6 pg (01/18/15 12:59 PM) 29.2 pg (01/17/15 4:34 AM) 29.6 pg (01/16/15 5:00 AM) MCH [27.0-31.0 pg] 32.6 g/dL (01/18/15 12:59 PM) 33.6 g/dL (01/17/15 4:34 AM) 34.2 g/dL (01/16/15 5:00 AM) MCHC [32.0-36.0 g/dL] 15.6 % *HI* (01/18/15 12:59 PM) 15.6 % *HI* (01/17/15 4:34 AM) 15.3 % *HI* (01/16/15 5:00 AM) RDW [11.5-14.5 %] 314 K/CMM (01/18/15 12:59 PM) 360 K/CMM (01/17/15 4:34 AM) 351 K/CMM (01/16/15 5:00 AM) Platelet [133-450 K/CMM] 7.9 fL (01/18/15 12:59 PM) 7.6 fL (01/17/15 4:34 AM) 7.9 fL (01/16/15 5:00 AM) MPV [7.4-10.4 fL] 66.9 % (01/18/15 12:59 PM) 57.4 % (01/17/15 4:34 AM) 49.7 % (01/16/15 5:00 AM) Segs [45.0-75.0 %] 17.3 % *LOW* (01/18/15 12:59 PM) 25.1 % (01/17/15 4:34 AM) 32.3 % (01/16/15 5:00 AM) Lymphocytes [20.0-40.0 %] 10.1 % (01/18/15 12:59 PM) 10.1 % (01/17/15 4:34 AM) 8.4 % (01/16/15 5:00 AM) Monocytes [2.0-12.0 %] 4.9 % *HI* (01/18/15 12:59 PM) 6.9 % *HI* (01/17/15 4:34 AM) 8.8 % *HI* (01/16/15 5:00 AM) Eosinophils [0.0-4.0 %] 0.8 % (01/18/15 12:59 PM) 0.5 % (01/17/15 4:34 AM) 0.8 % (01/16/15 5:00 AM) Basophils [0.0-1.0 %] 4.3 K/CMM (01/18/15 12:59 PM) 3.2 K/CMM (01/17/15 4:34 AM) 2.6 K/CMM (01/16/15 5:00 AM) Segs-Bands # [1.5-8.1 K/CMM] 1.1 K/CMM (01/18/15 12:59 PM) 1.4 K/CMM (01/17/15 4:34 AM) 1.7 K/CMM (01/16/15 5:00 AM) Lymphocytes # [1.0-5.5 K/CMM] 0.6 K/CMM (01/18/15 12:59 PM) 0.6 K/CMM (01/17/15 4:34 AM) 0.4 K/CMM (01/16/15 5:00 AM) Monocytes # [0.0-0.8 K/CMM] 0.3 K/CMM (01/18/15 12:59 PM) 0.4 K/CMM (01/17/15 4:34 AM) 0.5 K/CMM (01/16/15 5:00 AM) Eosinophils # [0.0-0.5 K/CMM] 0.1 K/CMM (01/18/15 12:59 PM) 0.0 K/CMM (01/17/15 4:34 AM) 0.0 K/CMM (01/16/15 5:00 AM) Basophils # [0.0-0.2 K/CMM] Immunizations Vaccine Date Refusal Reason Hx pneumococcal vaccine 11/12/11 influenza virus vaccine, inactivated 07/02/14 Procedures Procedure Date Related Diagnosis Body Site Bladder operation Cholecystectomy Hernia repair Hysterectomy Insertion of [id number] 1left side. oct 2014 placed Social History [...]
--- OUTSIDE RECORDS SUMMARY | 2020-04-14 11:59 | XMS REPORT | Summary of Care ---
Author Organization Unknown Address Unknown Phone Unavailable Encounter [facility]ella_[facility]na(ANT) [id number] Date(s): 10/03/14 - 10/03/[address] Discharge Disposition: Home Physician Attending: Rob Winslow MD Physician_Referring: Rob Winslow MD Reason for Visit RIGHT BREAST PAIN AND SWELLING Problem List Condition Effective Dates Status Health [...]
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
--- OUTSIDE RECORDS SUMMARY | 2020-04-14 12:00 | XMS REPORT ---
Author Author CECILY WERNRE SHANAE Organization Unknown Address Unknown Phone Care Team Providers Care Rehabilitation Services Director Name Role Phone GLENROY WERNERBERLY PP Reason for Referral No Reason for Referral was given. History of Present Illness No HPI available. 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); (Active) Medication * Hydrocodone-Acetaminophen 5-325 MG Oral Tablet; TAKE 1 TABLET EVERY 6 HOURS NEEDED.; Start Date: 03/31/2013 (Active) * Advair Diskus 250-50 MCG/DOSE Inhalation Aerosol Powder Breath Activated (Active) * Zocor 20 MG Oral Tablet (Active) * Boniva 150 MG Oral Tablet (Active) * Mobic 15 MG Oral Tablet (Active) * Duexis 800-26.6 MG Oral Tablet; TAKE 1 TABLET 3 TIMES DAILY; Start Date: 2012 (Active) Allergies and Adverse Reactions * No Known Drug Allergies (Active) Past Medical History * History of Asthma (493.90); (Resolved) * History of Back Pain (Resolved) * History of Hemorrhoids (455.6); (Resolved) * History of Hernia (553.9); (Resolved) * History of Osteoporosis (733.00); (Resolved) * History of Pneumonia (V12.61); (Resolved) * History of Thyroid Disorder (246.9); (Resolved) Procedures Procedure Procedure Date Date Completed Status Hysterectomy - - Resolved Bladder Surgery - - Resolved Social History * Caffeine Use (Active) * Exercising Regularly (Active) Advance Directives * No Advance Directives available. Encounters * AUDIT 04/01/2013
--- OUTSIDE RECORDS SUMMARY | 2020-04-14 12:00 | XMS REPORT | Summary of Care ---
Author Author [facility] Organization [facility] Address Unknown Phone Unavailable Encounter HQ Jeremias(ANT) [id number] Date(s): 10/14/16 - 10/16/16 [facility] [address] [place] [address]- Discharge Disposition: Home or Self Care Attending Physician: Sharla Mazariegos MD Admitting Physician: Jostin Sánchez Vital Signs 1 2 3 Most recent to oldest [Reference Range]: 167.64 cm (10/15/16 12:10 AM) 167.64 cm (10/14/16 3:11 PM) Height 99.1 DegF (10/16/16 1:00 PM) 98.6 DegF (10/16/16 7:00 AM) 98.3 DegF (10/16/16 4:10 AM) Temperature Oral [96.4-99.1 DegF] 112/64 mmHg (10/16/16 1:00 PM) 103/62 mmHg (10/16/16 7:00 AM) 111/70 mmHg (10/16/16 4:10 AM) Blood Pressure [90-140/60-90 mmHg] 18 BRMIN (10/16/16 1:00 PM) 18 BRMIN (10/16/16 7:00 AM) 20 BRMIN (10/16/16 4:10 AM) Respiratory Rate [14-20 BRMIN] 74 bpm (10/16/16 1:00 PM) 73 bpm (10/16/16 7:00 AM) 74 bpm (10/16/16 4:10 AM) Peripheral Pulse Rate [60-100 bpm] 46.364 kg (10/15/16 12:10 AM) 47.273 kg (10/14/16 3:11 PM) Weight 16.5 m2 (10/15/16 12:10 AM) 16.82 m2 (10/14/16 3:11 PM) Body Mass Index Problem List Condition [...] Active syndrome9, 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/01/11 Active , 12 Sprain of foot13, 14 01/01/11 Active [...] Shrimp Active NKDA Active Medications Advair Diskus 500 mcg-50 mcg inhalation powder 1 puff, Route: INHALATION, Drug Form: AERO, Dosing Weight 46.364, kg, BID, Start date: 10/15/16 9:00:00 HEAD SAMPLER, Duration: 30 day, Stop date: 11/13/16 17:00:00 HEAD SAMPLER Start Date: 10/15/16 Stop Date: 10/16/16 Status: Deleted albuterol 1.25 mg, 3 mL, Route: NEB, Drug form: SOLN, Q8H, PRN Wheezing, Start date: 10/15 8:58:00 HEAD SAMPLER, Duration: 30 day, Stop date: 11/14/16 8:57:00 HEAD SAMPLER Notes: SEE RT DOCUMENTATION (Same as: Proventil) Start Date: 10/15/16 Stop Date: 10/16/16 Status: Discontinued amLODIPine 10 mg, PO, Daily, 0 Refill(s) Start Date: 10/15/16 Status: Ordered amLODIPine 10 mg, 1 tab, Route: PO, Drug form: TAB, Daily, Dosing Weight 46.364, kg, Start date: 10/15/16 9:00:00 HEAD SAMPLER, Duration: 30 day, Stop date: 11/13/16 9:00:00 HEAD SAMPLER Notes: (Same as: Norvasc) Start Date: 10/15/16 Stop Date: 10/16/16 Status: Discontinued anastrozole 2 mg, PO, Daily, 0 Refill(s) Start Date: 10/15/16 Status: Ordered anastrozole 2 mg, 2 tab, Route: PO, Drug form: TAB, Daily, Dosing Weight 46.364, kg, Start d ate: 10/15/16 9:00:00 HEAD SAMPLER, Duration: 30 day, Stop date: 11/13/16 9:00:00 HEAD SAMPLER Notes: (Same as: Arimidex)Chemotherapy agent/Handle with cautionWASTE: F/P - Blari ck; E - Yellow Start Date: 10/15/16 Stop Date: 10/16/16 Status: Discontinued calcium-vitamin D 315 mg-200 intl units oral tablet 2 tab, Route: PO, Drug Form: TAB, Daily, Start date: 10/15/16 9:00:00 HEAD SAMPLER, Durat ion: 30 day, Stop date: 11/13/16 9:00:00 HEAD SAMPLER Notes: (Same As: Citracal Caplets Plus D) Start Date: 10/15/16 Stop Date: 10/16/16 Status: Discontinued calcium-vitamin D 600 mg-200 units oral tablet 1 tab, Route: PO, Drug Form: TAB, Dosing Weight 46.364, kg, Daily, Start date: 0 10/15/16 9:00:00 HEAD SAMPLER, Duration: 30 day, Stop date: 11/13/16 9:00:00 HEAD SAMPLER Start Date: 10/15/16 Stop Date: 10/15/16 Status: Deleted Colace 100 mg oral capsule 100 mg, 1 cap, Route: PO, Drug form: CAP, BID, Dosing Weight 47.273, kg, Start d ate: 10/15/16 9:00:00 HEAD SAMPLER, Duration: 30 day, Stop date: 11/13/16 17:00:00 HEAD SAMPLER Notes: (Same as: Colace) (Do Not Crush) Start Date: 10/15/16 Stop Date: 10/16/16 Status: Discontinued Colace 100 mg oral capsule 100 mg, 1 cap, Route: PO, Drug form: CAP, BID, Dosing Weight 46.364, kg, Start d ate: 10/15/16 9:00:00 HEAD SAMPLER, Duration: 30 day, Stop date: 11/13/16 17:00:00 HEAD SAMPLER Start Date: 10/15/16 Stop Date: 10/15/16 Status: Deleted demeclocycline 300 mg, 2 tab, Route: PO, Drug form: TAB, BID, Dosing Weight 46.364, kg, Priorit y: NOW, Start date: 10/15/16 13:20:00 HEAD SAMPLER, Duration: 30 day, Stop date: 11/14/16 9:00:00 HEAD SAMPLER Notes: (Same As: Declomycin) Start Date: 10/15/16 Stop Date: 10/16/16 Status: Discontinued demeclocycline 150 mg oral tablet 300 mg = 2 tab, PO, BID, X 15 day, # 60 tab, 0 Refill(s) Start Date: 10/16/16 Stop Date: 10/31/16 Status: Ordered enoxaparin 40 mg, 0.4 mL, Route: SUB-Q, Drug form: INJ, [id number], Dosing Weight 46.364, kg, Start date: 10/15/16 8:00:00 HEAD SAMPLER, Duration: 30 day, Stop date: 11/13/16 8:00:00 HEAD SAMPLER Notes: (Same as: Lovenox) Start Date: 10/15/16 Stop Date: 10/16/16 Status: Discontinued enoxaparin 30 mg, Route: SUB-Q, Drug form: INJ, [id number], Dosing Weight 46.364, kg, Start d ate: 10/15/16 8:00:00 HEAD SAMPLER, Duration: 30 day, Stop date: 11/13/16 20:00:00 HEAD SAMPLER Start Date: 10/15/16 Stop Date: 10/15/16 Status: Discontinued Fleet Enema 133 mL, Route: IA, Drug Form: GAVIN, Dosing Weight 46.364, kg, ONCE, Start date: 10/15/16 7:15:00 HEAD SAMPLER, Stop date: 10/15/16 7:15:00 HEAD SAMPLER Start Date: 10/15/16 Stop Date: 10/15/16 Status: Completed furosemide 20 mg oral tablet 20 mg = 1 tab, PO, Daily, # 30 tab, 0 Refill(s) Start Date: 10/15/16 Stop Date: 10/16/16 Status: Discontinued lactulose 10 g/15 mL oral syrup 20 gm, 30 ml, Route: PO, Drug form: SYRP, Q6H, Dosing Weight 46.364, kg, PRN Con stipation, Start date: 10/15/16 13:02:00 HEAD SAMPLER, Duration: 30 day, Stop date: 11/14 13:01:00 HEAD SAMPLER Notes: (Same as:Chronulac) Start Date: 10/15/16 Stop Date: 10/16/16 Status: Discontinued lactulose 10 g/15 mL oral syrup 20 gm, 30 mL, Route: PO, Drug form: SYRP, Q8H, Dosing Weight 46.364, kg, PRN Con stipation, Start date: 10/15/16 7:03:00 HEAD SAMPLER, Duration: 30 day, Stop date: 7:02:00 HEAD SAMPLER Notes: (Same as:Chronulac) Start Date: 10/15/16 Stop Date: 10/15/16 Status: Discontinued lactulose 10 g/15 mL oral syrup 20 gm, 30 mL, Route: PO, Drug form: SYRP, ONCE, Dosing Weight 46.364, kg, Start date: 10/15/16 13:03:00 HEAD SAMPLER, Stop date: 10/15/16 13:03:00 HEAD SAMPLER Notes: (Same as:Chronulac) Start Date: 10/15/16 Stop Date: 10/15/16 Status: Completed levothyroxine 75 microgram, 1 tab, Route: PO, Drug form: TAB, Before Breakfast, Dosing Weight 46.364, kg, Start date: 10/16/16 7:30:00 HEAD SAMPLER, Duration: 30 day, Stop date: 11/14 7:30:00 HEAD SAMPLER Notes: Take 1 hour before or 2 hours after meal; Enteral feeds may interefere wi th the absorption of this medication. (Same as:Synthroid, Levothroid) Start Date: 10/16/16 Stop Date: 10/16/16 Status: Discontinued losartan 100 mg, 1 tab, Route: PO, Drug form: TAB, Daily, Dosing Weight 46.364, kg, Start date: 10/15/16 9:00:00 HEAD SAMPLER, Duration: 30 day, Stop date: 11/13/16 9:00:00 HEAD SAMPLER Notes: (Same as: Coveronica) Start Date: 10/15/16 Stop Date: 10/16/16 Status: Discontinued losartan 100 mg oral tablet 100 mg = 1 tab, PO, Daily, # 30 tab, 0 Refill(s) Start Date: 10/15/16 Status: Ordered megestrol 40 mg/mL oral suspension 400 mg, 10 mL, Route: PO, Drug form: SUSP, BID, Dosing Weight 46.364, kg, Start date: 10/15/16 9:00:00 HEAD SAMPLER, Duration: 30 day, Stop date: 11/13/16 17:00:00 HEAD SAMPLER Notes: WASTE: F/P - Black; E - Yellow Start Date: 10/15/16 Stop Date: 10/16/16 Status: Discontinued MiraLax 17 gm, 1 pkt, Route: PO, Drug form: PWDR, Daily, Dosing Weight 47.273, kg, Start date: 10/15/16 9:00:00 HEAD SAMPLER, Duration: 30 day, Stop date: 11/13/16 9:00:00 HEAD SAMPLER Notes: Dissolve in 8 oz of water or juice.(Same as: Miralax) Start Date: 10/15/16 Stop Date: 10/16/16 Status: Discontinued MiraLax 17 gm, Route: PO, Daily, Dosing Weight 46.364, kg, Start date: 10/16/16 9:00:00 HEAD SAMPLER, Duration: 30 day, Stop date: 11/14/16 9:00:00 HEAD SAMPLER Start Date: 10/16/16 Stop Date: 10/15/16 Status: Deleted morphine Sulfate 2 mg, 1 mL, Route: IVP, Drug form: INJ, Q4H, Dosing Weight 47.273, kg, PRN Pain Score 7-10, Start date: 10/14/16 21:40:00 HEAD SAMPLER, Duration: 30 day, Stop date: 11/27 21:39:00 HEAD SAMPLER Notes: (Same as:MORPhine Sulfate) Start Date: 10/14/16 Stop Date: 10/16/16 Status: Discontinued morphine Sulfate 4 mg, 1 mL, Route: IVP, Drug form: INJ, ONCE, Dosing Weight 47.273, kg, Priority : STAT, Start date: 10/14/16 15:56:00 HEAD SAMPLER, Stop date: 10/14/16 15:56:00 HEAD SAMPLER Notes: (Same as:MORPhine Sulfate) Start Date: 10/14/16 Stop Date: 10/14/16 Status: Completed [place] 5/325 oral tablet 1 tab, Route: PO, Drug Form: TAB, Dosing Weight 46.364, kg, Q6H, PRN Other -See Comment, Start date: 10/15/16 11:09:00 HEAD SAMPLER, Duration: 30 day, Stop date: 7 11:08:00 HEAD SAMPLER Notes: (Same as: [place] 325/5) Do not exceed 4gm/day of acetaminophen. Start Date: 10/15/16 Stop Date: 10/16/16 Status: Discontinued omega-3 polyunsaturated fatty acids 1,000 mg, 1 cap, Route: PO, Drug form: CAP, Daily, Dosing Weight 46.364, kg, Sta rt date: 10/15/16 9:00:00 HEAD SAMPLER, Duration: 30 day, Stop date: 11/13/16 9:00:00 HEAD SAMPLER Notes: (Same as: MaxEPA, [place] 3 fish oil )Non-Formulary Drug Start Date: 10/15/16 Stop Date: 10/16/16 Status: Discontinued Omnipaque 300 100 mL, 200 ml/hr, Route: IV, Drug Form: SOLN, ONCALL, Start date: 10/14/16 20:0 0:00 HEAD SAMPLER, Duration: 30 day, Stop date: 11/13/16 19:59:00 HEAD SAMPLER Notes: (Same as:Omnipaque 300).WASTE: F/P - Black; E - Municipal Trash Bin Start Date: 10/14/16 Stop Date: 10/16/16 Status: Discontinued ondansetron 4 mg, 2 mL, Route: IVP, Drug form: INJ, Q6H, Dosing Weight 47.273, kg, PRN Nause a & Vomiting, Start date: 10/14/16 21:40:00 HEAD SAMPLER, Duration: 30 day, Stop date: 11/13/16 21:39:00 HEAD SAMPLER Notes: (Same as: Calixto) MEDICATION WASTE Product Size: 4 mgProduct Was bradly: ___ mg Start Date: 10/14/16 Stop Date: 10/16/16 Status: Discontinued ondansetron 4 mg, 2 mL, Route: IVP, Drug form: INJ, ONCE, Dosing Weight 51.818, kg, Priority : STAT, Start date: 10/14/16 15:15:00 HEAD SAMPLER, Stop date: 10/14/16 15:15:00 HEAD SAMPLER Notes: (Same as: Calixto) MEDICATION WASTE Product Size: 4 mgProduct Was bradly: ___ mg Start Date: 10/14/16 Stop Date: 10/14/16 Status: Completed Osteo Bi-Flex 1 tab, Route: PO, Dosing Weight 46.364, kg, Daily, Start date: 10/15/16 9:00:00 HEAD SAMPLER, Duration: 30 day, Stop date: 11/13/16 9:00:00 HEAD SAMPLER Start Date: 10/15/16 Stop Date: 10/16/16 Status: Deleted pantoprazole 40 mg, 1 tab, Route: PO, Drug form: ECTAB, Before Dinner, Dosing Weight 46.364, kg, Start date: 10/15/16 16:30:00 HEAD SAMPLER, Duration: 30 day, Stop date: 11/13/16 16: 30:00 HEAD SAMPLER Notes: Tablet should not be chewed or crushed.(Same as: Protonix) Start Date: 10/15/16 Stop Date: 10/16/16 Status: Discontinued Pulmicort Respules 0.5 mg/2 mL inhalation suspension 0.5 mg, 2 mL, Route: NEB, Drug form: SUSP, BID, Dosing Weight 46.364, kg, Start date: 10/15/16 9:00:00 HEAD SAMPLER, Duration: 30 day, Stop date: 11/13/16 21:00:00 HEAD SAMPLER Notes: (Same As: Pulmicort) Start Date: 10/15/16 Stop Date: 10/16/16 Status: Discontinued Saline Flush 0.9% 10 ml, Route: IVP, Drug Form: INJ, Dosing Weight 47.273, kg, PRN, PRN Line Flush , Start date: 10/14/16 21:40:00 HEAD SAMPLER, Duration: 30 day, Stop date: 11/13/16 21:39 :00 HEAD SAMPLER Notes: Same as: BD Posiflush Sterile Start Date: 10/14/16 Stop Date: 10/15/16 Status: Deleted Saline Flush 0.9% 10 mL, Route: IVP, Drug Form: INJ, Dosing Weight 51.818, kg, PRN, PRN Line Flush , Start date: 10/14/16 15:15:00 HEAD SAMPLER, Duration: 30 day, Stop date: 11/13/16 15:14 :00 HEAD SAMPLER Notes: Same as: BD Posiflush Sterile Start Date: 10/14/16 Stop Date: 10/16/16 Status: Discontinued sodium chloride 1,000 mg =, PO, BID, 0 Refill(s) Start Date: 10/15/16 Status: Ordered sodium chloride 0.9% 1000 ml INJ 1,000 mL 1,000 mL, Rate: 125 ml/hr, Infuse over: 8 hr, Route: IV, Dosing Weight 47.273 kg , Total Volume: 1,000, Start date: 10/14/16 21:40:00 HEAD SAMPLER, Duration: 30 day, Stop date: 11/13/16 21:39:00 HEAD SAMPLER Start Date: 10/14/16 Stop Date: 10/14/16 Status: Discontinued sodium chloride 0.9% 1000 ml INJ 1,000 mL 1,000 mL, Rate: 1,000 ml/hr, Infuse over: 1 hr, Route: IV, Dosing Weight 47.273 kg, Total Volume: 1,000, Priority: STAT, Start date: 10/14/16 18:31:00 HEAD SAMPLER, Dura tion: 1 doses or times, Stop date: 10/14/16 19:30:00 HEAD SAMPLER Start Date: 10/14/16 Stop Date: 10/14/16 Status: Completed sodium chloride 0.9% 1000 ml INJ 1,000 mL 1,000 mL, Rate: 1,000 ml/hr, Infuse over: 1 hr, Route: IV, Dosing Weight 47.273 kg, Total Volume: 1,000, Priority: STAT, Start date: 10/14/16 15:55:00 HEAD SAMPLER, Dura tion: 1 doses or times, Stop date: 10/14/16 16:54:00 HEAD SAMPLER Start Date: 10/14/16 Stop Date: 10/14/16 Status: Completed sodium chloride 0.9% 1000 ml INJ 1,000 mL 1,000 mL, Rate: 60 ml/hr, Infuse over: 16.7 hr, Route: IV, Dosing Weight 47.273 kg, Total Volume: 1,000, Start date: 10/14/16 22:05:00 HEAD SAMPLER, Duration: 30 day, St op date: 11/13/16 22:04:00 HEAD SAMPLER Start Date: 10/14/16 Stop Date: 10/15/16 Status: Discontinued Spiriva 18 mcg inhalation capsule 18 microgram, 1 inhalation, Route: INHALATION, Drug form: CAP, Daily, Dosing Dejuan ght 46.364, kg, Start date: 10/15/16 9:00:00 HEAD SAMPLER, Duration: 30 day, Stop date: 0 11/13/16 9:00:00 HEAD SAMPLER Notes: (Same As: Spiriva) Start Date: 10/15/16 Stop Date: 10/16/16 Status: Discontinued Ventolin HFA 90 mcg/inh inhalation aerosol with adapter 2 puff, Route: INHALATION, Drug Form: AERO/A, Dosing Weight 46.364, kg, QID, PRN Shortness of breath, Start date: 10/15/16 8:44:00 HEAD SAMPLER, Duration: 30 day, Stop d ate: 11/14/16 8:43:00 HEAD SAMPLER Notes: Albuterol 90 microgram/inh 8gm HFAWASTE: Aerosol - Return to [facility] as: Ventolin, Proventil Start Date: 10/15/16 Stop Date: 10/16/16 Status: Discontinued Vitamin C 1,000 mg, 2 tab, Route: PO, Drug form: TAB, Daily, Dosing Weight 46.364, kg, Sta rt date: 10/15/16 9:00:00 HEAD SAMPLER, Duration: 30 day, Stop date: 11/13/16 9:00:00 HEAD SAMPLER Notes: (Same as: Vitamin C) Start Date: 10/15/16 Stop Date: 10/16/16 Status: Discontinued Xopenex 0.63 mg, 3 mL, Route: NEB, Drug form: SOLN, Q8H, Dosing Weight 46.364, kg, PRN W heezing, Start date: 10/15/16 7:03:00 HEAD SAMPLER, Duration: 30 day, Stop date: 11/14/16 7:02:00 HEAD SAMPLER Start Date: 10/15/16 Stop Date: 10/15/16 Status: Deleted Zocor 20 mg, 1 tab, Route: PO, Drug form: TAB, Bedtime, Dosing Weight 46.364, kg, Star t date: 10/15/16 21:00:00 HEAD SAMPLER, Duration: 30 day, Stop date: 11/13/16 21:00:00 CS T Notes: (Same as: Zocor) Start Date: 10/15/16 Stop Date: 10/16/16 Status: Discontinued Zofran 4 mg, 1 tab, Route: PO, Drug form: TAB, PRN, Dosing Weight 46.364, kg, PRN as ne eded for nausea/vomiting, Start date: 10/15/16 7:03:00 HEAD SAMPLER, Duration: 30 day, St op date: 11/14/16 7:02:00 HEAD SAMPLER Notes: (Same as: Zofran) Start Date: 10/15/16 Stop Date: 10/16/16 Status: Discontinued Zofran 4 mg, 2 mL, Route: IVP, Drug form: INJ, ONCE, Dosing Weight 47.273, kg, Priority : STAT, Start date: 10/14/16 15:56:00 HEAD SAMPLER, Stop date: 10/14/16 15:56:00 HEAD SAMPLER Notes: (Same as: Zofran) MEDICATION WASTE Product Size: 4 mgProduct Was bradly: ___ mg Start Date: 10/14/16 Stop Date: 10/14/16 Status: Completed Results ELECTROLYTES 1 2 3 Most recent to oldest [Reference Range]: 129 mEq/L *LOW* (10/16/16 4:01 AM) 130 mEq/L *LOW* (10/15/16 6:31 PM) 124 mEq/L *LOW* (10/15/16 12:35 PM) Sodium Lvl [135-145 mEq/L] 4.2 mEq/L (10/16/16 4:01 AM) 3.6 mEq/L (10/15/16 4:06 AM) 3.8 mEq/L (10/14/16 8:35 PM) Potassium Lvl [3.5-5.1 mEq/L] 98 mEq/L (10/16/16 4:01 AM) 94 mEq/L *LOW* (10/15/16 4:06 AM) 91 mEq/L *LOW* (10/14/16 8:35 PM) Chloride Lvl [95-109 mEq/L] 20 mEq/L *LOW* (10/16/16 4:01 AM) 21 mEq/L *LOW* (10/15/16 4:06 AM) 21 mEq/L *LOW* (10/14/16 8:35 PM) CO2 [24-32 mEq/L] 15.2 mEq/L (10/16/16 4:01 AM) 11.6 mEq/L (10/15/16 4:06 AM) 12.8 mEq/L (10/14/16 8:35 PM) AGAP [10.0-20.0 mEq/L] CHEM PANEL 1 2 3 Most recent to oldest [Reference Range]: 0.50 mg/dL (10/16/16 4:01 AM) 0.41 mg/dL *LOW* (10/15/16 4:06 AM) 0.37 mg/dL *LOW* (10/14/16 8:35 PM) Creatinine Lvl [0.50-1.40 mg/dL] 97 mL/min/1.73m2 1 *NA* (10/16/16 4:01 AM) 104 mL/min/1.73m2 2 *NA* (10/15/16 4:06 AM) 107 mL/min/1.73m2 3 *NA* (10/14/16 8:35 PM) eGFR 7 mg/dL (10/16/16 4:01 AM) 7 mg/dL (10/15/16 4:06 AM) 6 mg/dL *LOW* (10/14/16 8:35 PM) BUN [7-22 mg/dL] 14 (10/16/16 4:01 AM) 20 (10/14/16 4:39 PM) B/C Ratio [6-25] 85 mg/dL (10/16/16 4:01 AM) 101 mg/dL *HI* (10/15/16 4:06 AM) 78 mg/dL (10/14/16 8:35 PM) Glucose Lvl [70-99 mg/dL] 6.4 g/dL (10/16/16 4:01 AM) 6.2 g/dL *LOW* (10/14/16 4:39 PM) Total Protein [6.4-8.4 g/dL] 3.6 g/dL (10/16/16 4:01 AM) 3.6 g/dL (10/14/16 4:39 PM) Albumin Lvl [3.5-5.0 g/dL] 2.8 g/dL (10/16/16 4:01 AM) 2.6 g/dL *LOW* (10/14/16 4:39 PM) Globulin [2.7-4.2 g/dL] 1.3 (10/16/16 4:01 AM) 1.4 (10/14/16 4:39 PM) A/G Ratio [0.7-1.6] 8.5 mg/dL (10/16/16 4:01 AM) 7.5 mg/dL *LOW* (10/15/16 4:06 AM) 7.1 mg/dL *LOW* (10/14/16 8:35 PM) Calcium Lvl [8.5-10.5 mg/dL] 20 unit/L (10/16/16 4:01 AM) 17 unit/L (10/14/16 4:39 PM) ALT [0-65 unit/L] 23 unit/L (10/16/16 4:01 AM) 14 unit/L (10/14/16 4:39 PM) AST [0-37 unit/L] 48 unit/L (10/16/16 4:01 AM) 52 unit/L (10/14/16 4:39 PM) Alk Phos [39-136 unit/L] 0.8 mg/dL (10/16/16 4:01 AM) 0.6 mg/dL (10/14/16 4:39 PM) Bili Total [0.2-1.3 mg/dL] 111 unit/L (10/14/16 4:39 PM) Lipase Lvl [73-393 unit/L] 256 mOsm/kg *LOW* (10/15/16 12:35 PM) Osmolality [280-300 mOsm/kg] 1Result Comment: The [...] be mul tiplied by the estimated BMI. URINE CHEM 1 2 3 Most recent to oldest [Reference Range]: 22 mEq/L *NA* (10/15/16 5:29 PM) 115 mEq/L *NA* (10/14/16 4:39 PM) U Sodium 109 mOsm/kg *LOW* (10/15/16 5:29 PM) U Osmolality [300-800 mOsm/kg] URINE AND STOOL 1 2 3 Most recent to oldest [Reference Range]: Clear (10/14/16 4:39 PM) UA Turbidity [Clear] Yellow *NA* (10/14/16 4:39 PM) UA Color [Yellow] 6.5 (10/14/16 4:39 PM) UA pH [5.0-8.0] 1.015 (10/14/16 4:39 PM) UA Spec Grav [<=1.030] Negative mg/dL (10/14/16 4:39 PM) UA Glucose [Negative mg/dL] Negative (10/14/16 4:39 PM) UA Blood [Negative] >=80 mg/dL *ABN* (10/14/16 4:39 PM) UA Ketones [Negative mg/dL] Negative mg/dL (10/14/16 4:39 PM) UA Protein [Negative mg/dL] 0.2 EU/dL (10/14/16 4:39 PM) UA Urobilinogen [0.1-1.0 EU/dL] Negative *NA* (10/14/16 4:39 PM) UA Bili [Negative] Negative (10/14/16 4:39 PM) UA Leuk Est [Negative] Negative (10/14/16 4:39 PM) UA Nitrite [Negative] 6-10 /HPF *ABN* (10/14/16 4:39 PM) UA WBC [None Seen /HPF] 3-5 /HPF *ABN* (10/14/16 4:39 PM) UA RBC [0-2 /HPF] None Seen (10/14/16 4:39 PM) UA Bacteria [None Seen] Rare /LPF (10/14/16 4:39 PM) UA Sq Epi [Few /LPF] Few /LPF (10/14/16 4:39 PM) UA Mucus [None Seen /LPF] HEMATOLOGY 1 2 3 Most recent to oldest [Reference Range]: 5.9 K/CMM (10/16/16 4:01 AM) 4.9 K/CMM (10/15/16 4:06 AM) 5.8 K/CMM (10/14/16 4:39 PM) WBC [3.7-10.4 K/CMM] 4.67 M/CMM (10/16/16 4:01 AM) 4.35 M/CMM (10/15/16 4:06 AM) 4.25 M/CMM (10/14/16 4:39 PM) RBC [4.20-5.40 M/CMM] 13.3 g/dL (10/16/16 4:01 AM) 12.3 g/dL (10/15/16 4:06 AM) 12.1 g/dL (10/14/16 4:39 PM) Hgb [12.0-16.0 g/dL] 38.1 % (10/16/16 4:01 AM) 35.4 % *LOW* (10/15/16 4:06 AM) 33.9 % *LOW* (10/14/16 4:39 PM) Hct [36.0-48.0 %] 81.5 fL (10/16/16 4:01 AM) 81.3 fL (10/15/16 4:06 AM) 79.7 fL *LOW* (10/14/16 4:39 PM) MCV [80.0-98.0 fL] 28.4 pg (10/16/16 4:01 AM) 28.3 pg (10/15/16 4:06 AM) 28.5 pg (10/14/16 4:39 PM) MCH [27.0-31.0 pg] 34.9 g/dL (10/16/16 4:01 AM) 34.8 g/dL (10/15/16 4:06 AM) 35.8 g/dL (10/14/16 4:39 PM) MCHC [32.0-36.0 g/dL] 13.5 % (10/16/16 4:01 AM) 13.1 % (10/15/16 4:06 AM) 12.8 % (10/14/16 4:39 PM) RDW [11.5-14.5 %] 292 K/CMM (10/16/16 4:01 AM) 280 K/CMM (10/15/16 4:06 AM) 315 K/CMM (10/14/16 4:39 PM) Platelet [133-450 K/CMM] 8.0 fL (10/16/16 4:01 AM) 8.3 fL (10/15/16 4:06 AM) 8.1 fL (10/14/16 4:39 PM) MPV [7.4-10.4 fL] 68.1 % (10/16/16 4:01 AM) 54.2 % (10/15/16 4:06 AM) 50.9 % (10/14/16 4:39 PM) Segs [45.0-75.0 %] 23.5 % (10/16/16 4:01 AM) 33.6 % (10/15/16 4:06 AM) 37.1 % (10/14/16 4:39 PM) Lymphocytes [20.0-40.0 %] 7.1 % (10/16/16 4:01 AM) 9.7 % (10/15/16 4:06 AM) 8.7 % (10/14/16 4:39 PM) Monocytes [2.0-12.0 %] 0.4 % (10/16/16 4:01 AM) 1.6 % (10/15/16 4:06 AM) 2.4 % (10/14/16 4:39 PM) Eosinophils [0.0-4.0 %] 0.9 % (10/16/16 4:01 AM) 0.9 % (10/15/16 4:06 AM) 0.9 % (10/14/16 4:39 PM) Basophils [0.0-1.0 %] 4.0 K/CMM (10/16/16 4:01 AM) 2.6 K/CMM (10/15/16 4:06 AM) 3.0 K/CMM (10/14/16 4:39 PM) Segs-Bands # [1.5-8.1 K/CMM] 1.4 K/CMM (10/16/16 4:01 AM) 1.6 K/CMM (10/15/16 4:06 AM) 2.2 K/CMM (10/14/16 4:39 PM) Lymphocytes # [1.0-5.5 K/CMM] 0.4 K/CMM (10/16/16 4:01 AM) 0.5 K/CMM (10/15/16 4:06 AM) 0.5 K/CMM (10/14/16 4:39 PM) Monocytes # [0.0-0.8 K/CMM] 0.1 K/CMM (10/15/16 4:06 AM) 0.1 K/CMM (10/14/16 4:39 PM) Eosinophils # [0.0-0.5 K/CMM] 0.1 K/CMM (10/16/16 4:01 AM) 0.1 K/CMM (10/14/16 4:39 PM) Basophils # [0.0-0.2 K/CMM] Immunizations Given and Recorded Vaccine Date Status Refusal Reason Hx pneumococcal vaccine 11/12/11 Given influenza virus vaccine, inactivated 07/02/14 G iven Procedures Procedure Date Related Diagnosis Body Site Bladder operation Cholecystectomy Hernia repair Hysterectomy Insertion of [id number] 1left side. oct 2014 placed Social History [...] and Plan Extracted from: Title: Progress Note - Tuck In Author: Maria E Bonilla Date: 10/14/16 MD Patient admitted to the service of Dr Carmen courtney. Hospitalist group was asked to provide tuck-in [...]
--- OUTSIDE RECORDS SUMMARY | 2020-04-14 12:00 | XMS REPORT | Summary of Care ---
Author CECILY Wilson M.D. Organization Unknown Address [facility] Phone Unavailable Care Team Providers Care Leasing Machine Tender Name Role Phone LOKI BLANCA M.D. 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, M19.011) Status: Active Chronic bilateral low back pain without sciatica (724.2, M54.5) Status: Active Chronic bilateral thoracic back pain (72 4.1, M54.6) Status: Active Arthralgia of elbow (719.42, M25.529) Status: Active Effusion of right olecranon bursa (719.0 2, M25.421) Status: Active Back pain (724.5, M54.9) Status: Active Right wrist fracture (814.00, S62.101A) Status: Active Greater trochanteric bursitis of left hi p (726.5, M70.62) Status: Active Medications Name Dates Details Advair Diskus 250-50 MCG/DOSE Inhalation Aerosol Powder Breath Activated Active Zocor 20 MG Oral Tablet * Refills: 0 Active Boniva 150 MG Oral Tablet * Refills: 0 Active Mobic 15 MG Oral Tablet * Refills: 0 Active Duexis 800-26.6 MG Oral Tablet TAKE 1 TABLET 3 TIMES DAILY * Quantity: 90 Refills: 6 SHANAE RODRIGUEZ * Start : 11-Aug-2012 Active Hydrocodone-Acetaminophen 5-325 MG Oral Tablet TAKE 1 TABLET EVERY 6 HOURS NEEDED. * Quantity: 100 Refills: 0 SHANAE RODRIGUEZ * Start : 31-Mar-2013 Active Hydrocodone-Acetaminophen 5-325 MG Oral Tablet TAKE 1 TABLET EVERY 6 HOURS NEEDED FOR PAIN. * Quantity: 100 Refills: 0 SHANAE RODRIGUEZ * Start : 17-May-2014 Active Duexis 800-26.6 MG Oral Tablet TAKE 1 TABLET 3 TIMES DAILY * Quantity: 90 Refills: 0 SHANAE RODRIGUEZ * Start : 17-May-2014 Active Gabapentin 300 MG Oral Capsule TAKE ONE CAPSULE BY MOUTH THREE TIMES DAILY * Quantity: 90 Refills: 2 LOKI BLANCA M.D. * Start : 01-Jan-2017 Active Venlafaxine HCl ER 37.5 MG Oral Capsule Extended Release 24 Hour TAKE 1 CAPSULE AT BEDTIME FOR 2 WEEKS ; 2 CAPSULES AT BEDTIME 2 WEEKS * Quantity: 42 Refills: 0 LOKI BLANCA M.D. * Start : 29-Jan-2017 Active Allergies and Adverse Reactions Name Dates Details No Known Drug Allergies (Allergy) Status : Active Past Medical History Name Dates Details History of Back Pain Status: Resolved History of hemorrhoids (V13.89, Z87.19) Status: Resolved History of Hernia (553.9, K46.9) Status: Resolved History of Osteoporosis (733.00, M81.0) Status: Resolved History of Pneumonia (V12.61) Status: Resolved History of thyroid disease (V12.29, Z86. 39) Status: Resolved Personal history of asthma (V12.69, Z87. 09) Status: Resolved Procedures Procedure Dates Details History of Hysterectomy Completed History of Bladder Surgery Completed Immunization Name Dates Details Immunizations not documented Social History Name Dates Details Unknown if ever smoked Vital Signs Date Test Result Details No Known Vitals to report Results Date Description Value Details Results not documented Plan of Care Name Dates Details Planned Observations Planned Goals not documented Interventions Provided Medication Changes* Gabapentin 300 MG Oral Capsule - Renew Labs/Procedures/Imaging* [U] XRAY HIP UNILATERAL MIN 2 VWS LEFT [id number]; Done: 21 Mar 2018 Plan* Completed at Today's Appointment: * Injection * Patient Education/Instructions: * Reassurance * Patient/Parent to call or return with any abnormal changes * Apply Ice as Instructed * Follow Up: * Please schedule an appointment as needed for any future problems or concerns. Instructions Name Dates Details Instructions not documented Encounters Appointment; LOKI BLANCA M.D. Encounter Diagnosis: Problem not documented On: 30-Jul-2016 8:45 Appointment; LOKI BLANCA M.D. Encounter Diagnosis: Problem not documented On: 31-Dec-2016 15:45 Appointment; LOKI BLANCA M.D. Encounter Diagnosis: Problem not documented On: 01-Jan-2017 15:15 Appointment; LOKI BLANCA M.D. Encounter Diagnosis: Problem not documented On: 29-Jan-2017 9:15 Appointment; LOKI BLANCA M.D. Encounter Diagnosis: Problem not documented On: 26-Feb-2017 10:45 Appointment; CAMILO BROWN M.D. Encounter Diagnosis: Problem not documented On: 08-Sep-2017 11:15 Appointment; LOKI BLANCA M.D. Encounter Diagnosis: Problem not documented On: 16-Sep-2017 8:45 Appointment; CAMILO BROWN M.D. Encounter Diagnosis: Problem not documented On: 04-Oct-2017 9:45 Appointment; LOKI BLANCA M.D. Encounter Diagnosis: Problem not documented On: 04-Oct-2017 14:15 Appointment; LOKI BLANCA M.D. Encounter Diagnosis: Problem not documented On: 21-Mar-2018 15:45
--- OUTSIDE RECORDS SUMMARY | 2020-04-14 12:00 | XMS REPORT | Summary of Care ---
Author Author [facility] Organization [facility] Address Unknown Phone Unavailable Encounter HQ Jeremias(ANT) [id number] Date(s): 08/28/16 - 08/28/16 [facility] [address] [place] [address]- [phone] Discharge Disposition: Home or Self Care Attending Physician: Evin Blanc MD Referring Physician: [...] Active syndrome9, 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/01/11 Active [id number], 12 Sprain of foot13, 14 01/01/11 Active [...] Status "RAW SHRIMP" Active Food Shrimp Active Medications No data available for this section Results No data available for this section Immunizations Given and Recorded Vaccine Date Status Refusal Reason Hx pneumococcal vaccine 11/12/11 Given influenza virus vaccine, inactivated 07/02/14 G iven Procedures Procedure Date Related Diagnosis Body Site Bladder operation Cholecystectomy Hernia repair Hysterectomy Insertion of [id number]-b-[id number] 1left side. oct 2014 placed Social History [...]
--- OUTSIDE RECORDS SUMMARY | 2020-04-14 12:00 | XMS REPORT | Summary of Care ---
Author Author [facility] Organization [facility] Address Unknown Phone Unavailable Encounter HQ Jeremias(FIN) [id number] Date(s): 02/03/16 - 02/03/16 [facility] [address] [place] [address]- [phone] Discharge Disposition: Home Attending Physician: Juanjose Meyer [...] Active syndrome9, 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/01/11 Active [id number], 12 Sprain of foot13, 14 01/01/11 Active [...] recent to 1 oldest [Reference Range]: eGFR 98 mL/min/1.73m2 1 *NA* (02/03/16 8:12 AM) POC Creatinine 0.5 mg/dL [0.5-1.4 mg/dL] (02/03/16 8:12 AM) 1Result Comment: The eGFR is calculated [...] operation Cholecystectomy Hernia repair Hysterectomy Insertion of [id number]-w-[id number] 1left side. oct 2014 placed Social History [...]
--- OUTSIDE RECORDS SUMMARY | 2020-04-14 12:00 | XMS REPORT ---
Author Author CECILY WERNER SHANAE Organization Unknown Address Unknown Phone Care Team Providers Care Warp Clamper Name Role Phone GLENROY WERNERBERLY PP Reason for Referral No Reason for Referral was given. History of Present Illness No HPI available. 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); (Active) Medication * Advair Diskus 250-50 MCG/DOSE Inhalation Aerosol Powder Breath Activated (Active) * Zocor 20 MG Oral Tablet (Active) * Boniva 150 MG Oral Tablet (Active) * Mobic 15 MG Oral Tablet (Active) * Duexis 800-26.6 MG Oral Tablet; TAKE 1 TABLET 3 TIMES DAILY; Start Date: 2012 (Active) * Hydrocodone-Acetaminophen 5-325 MG Oral Tablet; TAKE 1 TABLET EVERY 6 HOURS NEEDED.; Start Date: 03/31/2013 (Active) Allergies and Adverse Reactions * No [...] No Advance Directives available. Encounters * AUDIT 07/28/2013
--- OUTSIDE RECORDS SUMMARY | 2020-04-14 12:00 | XMS REPORT | Summary of Care ---
Author Author [facility] Organization [facility] Address Unknown Phone Unavailable Encounter TOYIN Mcdowell(ANT) [id number] Date(s): 01/27/16 - 01/27/16 [facility] [address] [place] [address]- Discharge Disposition: Home Attending Physician: Evin Blanc [...] Active syndrome9, 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/01/11 Active [id number], 12 Sprain of foot13, 14 01/01/11 Active [...] operation Cholecystectomy Hernia repair Hysterectomy Insertion of Hslw-n-rwtn1 1left side. oct 2014 placed Social History [...]
--- OUTSIDE RECORDS SUMMARY | 2020-04-14 12:00 | XMS REPORT | Summary of Care ---
Author Author [facility] Organization [facility] Address Unknown Phone Unavailable Encounter TOYIN Mcdowell(ANT) [id number] Date(s): 11/23/16 - 11/23/16 [facility] [address] [place] [address]- Discharge Disposition: Home or Self Care Attending [...] Active syndrome9, 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/01/11 Active [id number], 12 Sprain of foot13, 14 01/01/11 Active [...] operation Cholecystectomy Hernia repair Hysterectomy Insertion of Nntp-c-ecrf6 1left side. oct 2014 placed Social History [...]
--- OUTSIDE RECORDS SUMMARY | 2020-04-14 12:00 | XMS REPORT | Summary of Care ---
Author Author [facility] Organization [facility] Address Unknown Phone Unavailable Encounter HQ Jeremias(FIN) [id number] Date(s): 01/11/16 - 01/11/16 [facility] [address] [place] [address]- Discharge Diagnosis: Back pain Discharge Disposition: Home Attending Physician: Luis Villarreal MD Vital Signs 1 2 3 Most recent to oldest [Reference Range]: 167.64 cm (01/11/16 10:16 AM) Height 98.2 DegF (01/11/16 1:57 PM) 98.3 DegF (01/11/16 10:16 AM) Temperature Oral [96.4-99.1 DegF] 135/68 mmHg (01/11/16 1:57 PM) 148/72 mmHg *HI* (01/11/16 11:00 AM) 166/77 mmHg *HI* (01/11/16 10:16 AM) Blood Pressure [90-140/60-90 mmHg] 18 BRMIN (01/11/16 11:00 AM) 18 BRMIN (01/11/16 10:16 AM) Respiratory Rate [14-20 BRMIN] 79 bpm (01/11/16 10:16 AM) Peripheral Pulse Rate [60-100 bpm] 51.818 kg (01/11/16 10:16 AM) Weight 18.44 m2 (01/11/16 10:16 AM) Body Mass Index Problem List Condition [...] Active syndrome9, 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/01/11 Active mqzcqlaq54, 12 Sprain of foot13, 14 01/01/11 Active [...] "RAW SHRIMP" Active Food Shrimp Active Medications ketOROLAC 15 mg, 0.5 mL, Route: IVP, Drug form: INJ, ONCE, Dosing Weight 51.818, kg, Prior ity: STAT, Start date: 01/11/16 10:42:00 CDT, Stop date: 01/11/16 10:42:00 CDT Notes: (Same as:Toradol) IV bolus must be given >15 seconds. Give IM administration slowly and deeply into the muscle.Not for use > 4 days MEDICATION WASTE Product Size: 30 mgProduct Wasted: ___ mg Start Date: 01/11/16 Stop Date: 01/11/16 Status: Completed morphine Sulfate 4 mg, 1 mL, Route: IVP, Drug form: INJ, ONCE, Dosing Weight 51.818, kg, Priority : STAT, Start date: 01/11/16 10:42:00 CDT, Stop date: 01/11/16 10:42:00 CDT Notes: (Same as:MORPhine Sulfate) Start Date: 01/11/16 Stop Date: 01/11/16 Status: Completed orphenadrine 60 mg, 2 mL, Route: IVP, Drug form: INJ, ONCE, Dosing Weight 51.818, kg, Priorit y: STAT, Start date: 01/11/16 10:42:00 CDT, Stop date: 01/11/16 10:42:00 CDT Start Date: 01/11/16 Stop Date: 01/11/16 Status: Completed orphenadrine 100 mg oral tablet, extended release 100 mg = 1 tab, PO, BID, X 10 day, # 20 tab, 0 Refill(s), Pharmacy: [phone] Start Date: 01/11/16 Stop Date: 01/21/16 Status: Ordered Saline Flush 0.9% 10 mL, Route: IVP, Drug Form: INJ, Dosing Weight 51.818, kg, PRN, PRN Line Flush , Start date: 01/11/16 10:44:00 CDT, Duration: 30 day, Stop date: 02/10/16 10:43 :00 CDT Notes: Same as: BD Posiflush Sterile Start Date: 01/11/16 Stop Date: 01/11/16 Status: Discontinued Results ELECTROLYTES Most recent to 1 oldest [Reference Range]: Sodium Lvl [135-145 132 mEq/L mEq/L] *LOW* (01/11/16 11:37 AM) Potassium Lvl 4.6 mEq/L [3.5-5.1 mEq/L] (01/11/16 11:37 AM) Chloride Lvl [95-109 102 mEq/L mEq/L] (01/11/16 11:37 AM) CO2 [24-32 mEq/L] 28 mEq/L (01/11/16 11:37 AM) AGAP [10.0-20.0 6.6 mEq/L mEq/L] *LOW* (01/11/16 11:37 AM) CHEM PANEL Most recent to 1 oldest [Reference Range]: Creatinine Lvl 0.88 mg/dL [0.50-1.40 mg/dL] (01/11/16 11:37 AM) eGFR 66 mL/min/1.73m2 1 *NA* (01/11/16 11:37 AM) BUN [7-22 mg/dL] 13 mg/dL (01/11/16 11:37 AM) B/C Ratio [6-25] 15 (01/11/16 11:37 AM) Glucose Lvl [70-99 75 mg/dL mg/dL] (01/11/16 11:37 AM) Total Protein 7.0 g/dL [6.4-8.4 g/dL] (01/11/16:37 AM) Albumin Lvl [3.5-5.0 3.6 g/dL g/dL] (01/11/16:37 AM) Globulin [2.0-4.0 3.4 g/dL g/dL] (01/11/16:37 AM) A/G Ratio [0.7-1.6] 1.1 (01/11/16 11:37 AM) Calcium Lvl 8.9 mg/dL [8.5-10.5 mg/dL] (01/11/16 11:37 AM) ALT [0-65 unit/L] 22 unit/L (01/11/16 11:37 AM) AST [0-37 unit/L] 25 unit/L (01/11/16 11:37 AM) Alk Phos [39-136 64 unit/L unit/L] (01/11/16 11:37 AM) Bili Total [0.2-1.3 0.5 mg/dL mg/dL] (01/11/16 11:37 AM) Lipase Lvl [73-393 115 unit/L unit/L] (01/11/16 11:37 AM) 1Result Comment: The eGFR is calculated [...] be mul tiplied by the estimated BMI. HEMATOLOGY Most recent to 1 oldest [Reference Range]: WBC [3.7-10.4 K/CMM] 5.4 K/CMM (01/11/16 11:37 AM) RBC [4.20-5.40 4.71 M/CMM M/CMM] (01/11/16:37 AM) Hgb [12.0-16.0 g/dL] 13.2 g/dL (01/11/16:37 AM) Hct [36.0-48.0 %] 40.0 % (01/11/1637 AM) MCV [80.0-98.0 fL] 85.0 fL (01/11/1637 AM) MCH [27.0-31.0 pg] 28.1 pg (01/11/16:37 AM) MCHC [32.0-36.0 33.0 g/dL g/dL] (01/11/16 11:37 AM) RDW [11.5-14.5 %] 13.0 % (01/11/16 11:37 AM) Platelet [133-450 332 K/CMM K/CMM] (01/11/16 11:37 AM) MPV [7.4-10.4 fL] 8.0 fL (01/11/16 11:37 AM) Segs [45.0-75.0 %] 48.9 % (01/11/16:37 AM) Lymphocytes 35.4 % [20.0-40.0 %] (01/11/16 11:37 AM) Monocytes [2.0-12.0 11.1 % %] (01/11/16 11:37 AM) Eosinophils [0.0-4.0 4.0 % %] (01/11/16 11:37 AM) Basophils [0.0-1.0 0.6 % %] (01/11/16 11:37 AM) Segs-Bands # 2.7 K/CMM [1.5-8.1 K/CMM] (01/11/16 11:37 AM) Lymphocytes # 1.9 K/CMM [1.0-5.5 K/CMM] (01/11/16 11:37 AM) Monocytes # [0.0-0.8 0.6 K/CMM K/CMM] (01/11/16 11:37 AM) Eosinophils # 0.2 K/CMM [0.0-0.5 K/CMM] (01/11/16 11:37 AM) Immunizations Vaccine Date Refusal Reason Hx pneumococcal vaccine 11/12/11 influenza virus vaccine, inactivated 07/02/14 Procedures Procedure Date Related Diagnosis Body Site Bladder operation Cholecystectomy Hernia repair Hysterectomy Insertion of [id number]-[id number] 1left side. oct 2014 placed Social History [...]
--- OUTSIDE RECORDS SUMMARY | 2020-04-14 12:00 | XMS REPORT ---
Author Author Anne CECILY Fitzpatrick Organization Unknown Address Unknown Phone Care Team Providers Care Grating Machine Operator Name Role Phone Nanette Rodríguez PP Reason for Referral No Reason for [...] No Advance Directives available. Encounters * AUDIT 2012
--- OUTSIDE RECORDS SUMMARY | 2020-04-14 12:00 | XMS REPORT | Summary of Care ---
Author Author [facility] Organization [facility] Address Unknown Phone Unavailable Encounter TOYIN Mcdowell(ANT) [id number] Date(s): 02/17/16 - 02/17/16 [facility] [address] [place] [address]- Discharge Disposition: Home Attending Physician: Evin Blanc MD Vital Signs No [...] [employer] on 02/11/15. 12Data migrated from [employer] on 02/11/15. 13Data migrated from [employer] on 02/11/15. 14Data migrated from [employer] [...] operation Cholecystectomy Hernia repair Hysterectomy Insertion of [id number]-y-mjxp4 1left side. oct 2014 placed Social History [...]
--- OUTSIDE RECORDS SUMMARY | 2020-04-14 12:00 | XMS REPORT | Summary of Care ---
Author Author [facility] Organization [facility] Address Unknown Phone Unavailable Encounter HQ Jeremias(FIN) [id number] Date(s): 08/17/16 - 08/17/16 [facility] [address] [place] [address]- Discharge Disposition: Home or Self Care Attending Physician: Juanjose Meyer MD Admitting Physician: [...] Active syndrome9, 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/01/11 Active [id number], 12 Sprain of foot13, 14 01/01/11 Active [...] operation Cholecystectomy Hernia repair Hysterectomy Insertion of Uwux-l-zcjp9 1left side. oct 2014 placed Social History [...]
--- OUTSIDE RECORDS SUMMARY | 2020-04-14 12:00 | XMS REPORT | Summary of Care ---
Author Author [facility] Organization [facility] Address Unknown Phone Unavailable Encounter TOYIN Mcdowell(ANT) [id number] Date(s): 08/13/16 - 08/13/[address] [address]- Discharge Disposition: Home or Self Care Attending Physician: Eduin Schreiber MD Referring Physician: Eduin [...] Active syndrome9, 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/01/11 Active [id number], 12 Sprain of foot13, 14 01/01/11 Active [...] SHRIMP" Active Food Shrimp Active Medications No Known Medications Results No data available for this section Immunizations Given and Recorded Vaccine Date Status Refusal Reason Hx pneumococcal vaccine 11/12/11 Given influenza virus vaccine, inactivated 07/02/14 G iven Procedures Procedure Date Related Diagnosis Body Site Bladder operation Cholecystectomy Hernia repair Hysterectomy Insertion of [id number]-i-kbyd1 1left side. oct 2014 placed Social History [...]
--- OUTSIDE RECORDS SUMMARY | 2020-04-14 12:02 | XMS REPORT | Continuity of Care Document ---
Author Author [facility] t Organization [facility] Address [address] [place] [address] Phone Unavailable Care Team Providers Care Tailoring Teacher Name Role Phone NONSTAFF PCP Unavailable Kajal Meyer Attphys Vamsi Crowley Attphys Regis Swain Attphys LOKI PURDY M.D. Attphys Unavailable CAMILO BROWN M.D. Attphys Unavailable Suma Mejia Attphys Rodrigo Bae Attphys Zina Mazariegos Attphys Matteo Blanc Attphys Ezekiel Purdy II Attphys VESNA SWAIN Attphys Unavailable Matteo Villarreal Attphys Aminata Sousa Attphys Rachana Hargrove Attphys Loki Winslow Attphys Carrington Hernández Attphys Mandie Campuzano Attphys Vamsi Crowley Admphys Rodrigo Bae Admphys Zina Mazariegos Admphys Jono Sánchez Admphys Kajal Meyer Admphys Matteo Blanc Admphys Gurwinder TORRESEzekiel Admphys Rachana Hargrove Admphys Carrington Hernández Admphys Payers Payer Name Policy Type Policy Number Effective Date Expiration Date S raquel Medicare A & B [id number] 2009 00:00:00 C [facility] AARP [id number] [facility] [place] [place] Problems Condition Name Condition Details Condition Category Status Onset Date Resolution Date Last Treatment Date Treating Clinician Comments Source BREAST CANCER [facility] CANCER Active 10/26/2019 [facility] Diagnosis Active 2019-10-26 00:00:00 2019-11-08 11:15:00 [facility] [place] BREAST CA [facility] [facility] CA Active 08/07/2019 [facility] Diagnosis Active 2019-08-07 00:00:00 2019-08-15 12:46:00 [facility] BLADDER SLING BLAD RACHEL SLING Active 05/25/2019 [facility] Diagnosis Active 2019-05-25 00:00:00 2019-06-09 11:34:00 [facility] DX; M51.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 211//M81.0 Active 07/26/2018 [facility] Diagnosis Active 2018-07-26 00:00:00 2018-08-01 11:02:00 [facility] C50.211 BREAST CANCER C50. 211 BREAST CANCER Active 06/29/2018 [facility] Diagnosis Active 2018-06-29 00:00:00 2018-07-11 08:11:00 [facility] [place] BREAST CANCER C50.[address] CANCER C50.919 Active 06/29/2018 [facility] Diagnosis Active 2018-06-29 00:00:00 2018-07-11 07:44:00 [facility] DX: M16.12/M70.62PORT DX: M16.12/M70.62PORT Active 05/30/2018 [facility] Diagnosis Active 2018-05-30 00:00:00 2018-06-19 06:19:00 [facility] FALL/ARM PAIN FALL /ARM PAIN Active 09/03/2017 [facility] Diagnosis Active 2017-09-03 19:00:00 2017-12-20 08:16:00 [facility] SHORTNESS OF BREATH SHOR TNESS OF BREATH Active 07/20/2017 [facility] Diagnosis Active 2017-07-20 00:00:00 2017-07-20 14:56:00 [facility] DYSPNEA, COPD EXACERBATION DYS PNEA, COPD EXACERBATION Active 07/20/2017 [facility] Diagnosis Active 2017-07-20 00:00:0 0 2017-07-21 09:02:00 [facility] PNEUMONIA J18.9 PNEU MONIA J18.9 Active 07/19/2017 [facility] Diagnosis Active 2017-07-19 00:00:00 2017-07-19 15:49:00 [facility] BACKACHE BACK ACHE Active 03/24/2017 [facility] Diagnosis Active 2017-03-24 00:00:00 2017-04-05 12:56:00 [facility] M54.5 BACKACHE, C50.919 M54. 5 BACKACHE, C50.919 Active 03/24/2017 [facility] Diagnosis Active 2017-03-24 00:00:00 2017-04-05 13:01:00 [facility] BREAST CANCER, C50.[address] CANCER, C50.911 Active 11/18/2016 [facility] Diagnosis Active 2016-11-18 00:00:00 2016-11-23 11:20:00 [facility] HYPONATREMIA, CONSTIPATION HYP ONATREMIA, CONSTIPATION Active 10/14/2016 [facility] Diagnosis Active 2016-10-14 00:00:0 0 2016-10-16 10:44:00 [facility] DIZZINESS, WEAKNESS, OTHER DIZ ZINESS, WEAKNESS, OTHER Active 10/14/2016 [facility] Diagnosis Active 2016-10-14 00:00:0 0 2016-10-14 19:51:00 [facility] M75.80 OTHER SHOULDER LESIONS, UNSPECIFI M75.80 OTHER SHOULDER LESIONS, UNSPECIFI Active 08/03/2016 [facility] Diagnosis Active 2016-08-03 00:00:00 2016-08-13 10:36:00 [facility] M75.80 OTHER SHOULDER LESIONS, RIGHT JONG M75.80 OTHER SHOULDER LESIONS, RIGHT JONG Active 08/03/2016 [facility] Diagnosis Active 2016-08-03 00:00:00 2016-08-13 17:25:00 [facility]/BREAST CA CHES T PAIN/BREAST CA Active 02/17/2016 [facility] Diagnosis Active 2016-02-17 00:00:00 2016-02-17 16:02:00 [facility] BACKACHE, CA BREAST BACK ACHE, CA BREAST Active 01/29/2016 [facility] Diagnosis Active 2016-01-29 00:00:00 2016-02-03 07:58:00 [facility] [place] CA OF RIGHT BREAST CA O F RIGHT BREAST Active 01/22/2016 [facility] Diagnosis Active 2016-01-22 00:00:00 2016-01-27 12:12: 00 [facility] CA OF RIGHT BREAST C50.919 CA OF RIGHT BREAST C50.919 Active 01/22/2016 [facility] Diagnosis Active 2016-01-22 00:00:0 0 2016-01-27 12:19:00 [facility] BACK PAIN BACK PAIN Active 01/11/2016 [facility] Diagnosis Active 2016-01-11 00:00:00 2016-01-11 11:31:00 [facility] CHEST PAIN, C50.919 BREAST CA CHEST PAIN, C50.919 BREAST CA Active 01/07/2016 [facility] Diagnosis Active 2016-01-07 00:0 0:00 2016-01-07 09:34:00 [facility] R07.9 CHEST PAIN, C50.919 BREAST CA R07.9 CHEST PAIN, C50.919 BREAST CA Active 01/07/2016 [facility] Diagnosis Active 2016-01-07 00:00:00 2016-01-07 11:06:00 [facility] [place] M75.80 M75. 80 Active 12/09/2015 [facility] Diagnosis Active 2015-12-09 00:00:00 2015-12-13 09:51:00 [facility] M75.80, OTHER SHOULDER LESIONS, UNSPEC S M75.80, OTHER SHOULDER LESIONS, UNSPEC S Active 12/09/2015 [facility] Diagnosis Active 2015-12-09 00:00:00 2015-12-13 18:27:00 [facility] LEFT BREAST MASS N63, INFLAMMATORY CA BR LEFT BREAST MASS N63, INFLAMMATORY CA BR Active 11/04/2015 [facility] Diagnosis Active 2015-11-04 00:00:00 2015-11-07 08:49:00 [facility] BREAST C50.[address] C50.919 Active 09/26/2015 [facility] Diagnosis Active 2015-09-26 00:00:00 2015-09-26 10:39:00 [facility] CHEST PAIN CHES T PAIN Active 08/13/2015 [facility] Diagnosis Active 2015-08-13 00:00:00 2015-08-15 16:05:00 [facility] CA OF BREAST /// INFLAMATORY CA OF RIGHT CA OF BREAST /// INFLAMATORY CA OF RIGHT Active 07/19/2015 [facility] Diagnosis Active 2015-07-19 00:00:00 2015-08-05 07:57:00 [facility] BREAST CA 174.[address] CA 174.9 Active 04/04/2015 [facility] Diagnosis Active 2015-04-04 00:00:00 2015-04-15 07:36:00 [facility] RESP DISTRESS RESP DISTRESS Active 01/24/2015 [facility] Diagnosis Active 2015-01-24 00:00:00 2015-01-24 18:24:00 [facility] SEVERE HYPONATREMIA, PNEUMONIA SEVERE HYPONATREMIA, PNEUMONIA Active 01/24/2015 [facility] Diagnosis Active 2015-01-24 00:00:00 2015-02-03 21:47:00 [facility] CONSTIPATION CONS TIPATION Active 01/15/2015 [facility] Diagnosis Active 2015-01-15 00:00:00 2015-01-15 16:45:00 [facility] 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 Active 01/15/2015 [facility] Diagnosis Active 2015-01-15 00:00:00 2015-01-22 08:48:00 [facility] CHEMOTHERAPY NAUSEA, VOMITING CHEMOTHERAPY NAUSEA, VOMITING Active 12/30/2014 [facility] Diagnosis Active 2014-12-30 00:00:00 2014-12-30 08:38:00 [facility] HYPONATREMIA; SIADH DUE TO STG 4 BREAST HYPONATREMIA; SIADH DUE TO STG 4 BREAST Active 12/30/2014 [facility] Diagnosis Active 2014-12-30 00:00:00 2014-12-31 15:05:00 [facility] 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 [facility], [facility]I [facility] Problem Active 2014-12-22 00:00:00 2019-11-10 23:51:58 [facility] CHE[facility] PT.WEAKNESS, NAUSES CHEM O PT.WEAKNESS, NAUSES Active 12/07/2014 [facility] Diagnosis Active 2014-12-07 00:00:0 0 2014-12-08 01:37:00 [facility] HYPONATREMIA; NAUSEA AND VOMITING; WEAKN HYPONATREMIA; NAUSEA AND VOMITING; WEAKN Active 12/07/2014 [facility] Diagnosis Active 2014-12-07 00:00:00 2014-12-10 14:06:00 [facility] WEAKNESS, DIARRHEA, NAUSEA,/ CEMO PT WEAKNESS, DIARRHEA, NAUSEA,/ CEMO PT Active 11/25/2014 [facility] Diagnosis Active 2014-11-25 00:00:00 2014-11-25 18:30:00 [facility] DEHYDRATION; HYPONATREMIA DEHY DRATION; HYPONATREMIA Active 11/25/2014 [facility] Diagnosis Active 2014-11-25 00:00:0 0 2014-12-08 01:34:00 [facility] UNKNOWN UNKN OWN Active 10/25/2014 [facility] Diagnosis Active 2014-10-25 00:00:00 2014-10-29 07:31:00 [facility] POOR PERIPHERAL VEINS FOR CHEMO/HYPERTEN POOR PERIPHERAL VEINS FOR CHEMO/HYPERTEN Active 10/25/2014 [facility] Diagnosis Active 2014-10-25 00:00:00 2014-10-29 07:41:00 [facility] INFLAMMATORY CA RIGHT BREAST 780.79 INFLAMMATORY CA RIGHT BREAST 780.79 Active 10/19/2014 [facility] Diagnosis Active 2014-10-19 00:00:00 2014-10-22 10:55:00 [facility] RIGHT BREAST MASS RIGH T BREAST MASS Active 10/04/2014 [facility] Diagnosis Active 2014-10-04 00:00:00 2014-10-10 06:06:00 [facility] RIGHT BREAST PAIN AND SWELLING RIGHT BREAST PAIN AND SWELLING Active 10/01/2014 [facility] Diagnosis Active 2014-10-01 00:00:00 2014-10-03 16:48:00 [facility] CONGESTION, DEHYTRATION, WEAKNESS CONGESTION, DEHYTRATION, WEAKNESS Active 08/13/2014 [facility] Diagnosis Active 2014-08-13 00:00:00 2014-08-13 17:53:00 [facility] SEVERE HYPONATREMIA KEO RE HYPONATREMIA Active 08/13/2014 [facility] Diagnosis Active 2014-08-13 00:00:00 2014-08-14 10:18:00 [facility] DIVERTICULOSIS DIVE RTICULOSIS Active 01/12/2014 [facility] Diagnosis Active 2014-01-12 00:00:00 2014-01-12 11:13:00 [facility] CAROTID STENOSIS COFFEY TID STENOSIS Active 02/28/2013 [facility] Diagnosis Active 2013-02-28 00:00:00 2013-03-01 16:06:00 [facility] HEADACHE, LIGHTHEADED HEAD ACHE, LIGHTHEADED Active 02/24/2013 [facility] Diagnosis Active 2013-02-24 00:00:00 2013-02-24 12:41:00 [facility] PREVIOUS CYSTOTOMEY PREV IOUS CYSTOTOMEY Active 04/20/2012 [facility] Diagnosis Active 2012-04-20 00:00:00 2012-04-22 08:37:00 [facility] PREVIOUS CYTOMETY PREV IOUS CYTOMETY Active 04/20/2012 [facility] Diagnosis Active 2012-04-20 00:00:00 2012-04-21 15:40:00 [facility] UTERINE PROLAPSE UTER INE PROLAPSE Active 04/11/2012 [facility] Diagnosis Active 2012-04-11 00:00:00 2012-04-20 10:08:00 [facility] Arthritis of acromioclavicular joint (disorder) Arthritis of acromioclavicular joint (disorder) Active 01/01/2011 Problem 11/10/2019 Data migrated from [employer] on 02/11/15.Data migrated from [employer] on 02/11/15. [facility], [facility] Problem Active 2011-01-01 00:00:00 2019-11-10 23:51:58 [facility] Rotator cuff syndrome (disorder) Rotator cuff syndrome (disorder) Active 01/01/2011 Problem 11/10/2019 Data migrated from [employer] on 02/11/15.Data migrated from [employer] on 02/11/15. [facility] Problem Active 2011-01-01 00:00:0 0 2019-11-10 23:51:58 [facility] Shoulder joint inflamed (finding) Shoulder joint inflamed (finding) Active 01/01/2011 Problem 11/10/2019 Data migrated from [employer] on 02/11/15.Data migrated from [employer] on 02/11/15. [facility], [facility]I [facility] Problem Active 2011-01-01 00:00:00 2019-11-10 23:51:58 [facility] Sprain of foot (disorder) Spra in of foot (disorder) Active 01/01/2011 Problem 11/10/2019 Data migrated from [employer] on 02/11/15.Data migrated from [employer] on 02/11/15. [facility], [facility] Problem Active 2011-01-01 00:00:00 2019-11-10 23:51:58 [facility] FEVER, NAUSEA FEVE R, NAUSEA Active 12/21/2009 [facility] Diagnosis Active 2009-12-21 00:00:00 2014-12-21 05:05:00 [facility] [place] FEVER, WEAKNESS,ON CHEMOTHERAPY FEVER, WEAKNESS,ON CHEMOTHERAPY Active 12/21/2009 [facility] Diagnosis Active 2009-12-21 00:00:00 2014-12-24 08:39:00 [facility] History of Back Pain History of Back Pain Problem HL7.CCDAR2 Resolved [facility] History of hemorrhoids History of hemorrhoids Problem HL7.CCDAR2 Resolve d [facility] History of Hernia History of Hernia Problem HL7.CCDAR2 Resolved [facility] History of Osteoporosis History of Osteoporosis Problem HL7.CCDAR2 Res olved [facility] History of Pneumonia History of Pneumonia Problem HL7.CCDAR2 Resolved [facility] History of thyroid disease History of thyroid disease Problem HL 7.CCDAR2 Resolved [facility] Personal history of asthma Personal history of asthma Problem HL 7.CCDAR2 Resolved [facility] Rotator cuff tendonitis Rotator cuff tendonitis Problem HL7.CCDAR2 Activ e [facility] Right shoulder pain Right shoulder pain Problem HL7.CCDAR2 Active [facility] Osteoarthritis, localized, shoulder, right Osteoarthri tis, localized, shoulder, right Problem HL7.CCDAR2 Active [facility] Chronic bilateral low back pain without sciatica Chron ic bilateral low back pain without sciatica Problem HL7.CCDAR2 Active [facility] Chronic bilateral thoracic back pain Chronic bilateral thora cic back pain Problem HL7.CCDAR2 [facility] Arthralgia of elbow Arthralgia of elbow Problem HL7.CCDAR2 Active [facility] Back pain Back pain Problem HL7.CCDAR2 Active [facility] Right wrist fracture Right wrist fracture Problem HL7.CCDAR2 Active [facility] Effusion of right olecranon bursa Effusion of right olecrano n bursa Problem HL7.CCDAR2 Active [facility] Greater trochanteric bursitis of left hip Greater troc hanteric bursitis of left hip Problem HL7.CCDAR2 Active [facility] Malignant neoplasm of upper-inner quadrant of right fe male breast Malignant neoplasm of upper-inner quadrant of right female breast 02/19/2019 [facility] Problem 2019-02-19 11:09:58 Brian Bonds Final: Cardiomegaly Delmy l: Cardiomegaly 01/10/2016 [facility] Problem 2016-01-10 04:50:59 [facility] Trochanteric bursitis, left hip Trochanteric bursitis, left hip 01/06/2019 [facility] Problem 2019-01-06 11:0 7:03 Brian Bonds Effusion, left hip Effu gracie, left hip 01/06/2019 [facility] Problem 2019-01-06 11:07:03 Mo irene Bonds Spinal stenosis, lumbar region without neurogenic mika dication Spinal stenosis, lumbar region without neurogenic claudication 01/06/2019 [facility] Problem 2019-01-06 11:07:03 Brian Bonds Radiculopathy, lumbar region R adiculopathy, lumbar region 01/06/2019 [facility] Problem 2019-01-06 11:0 7:03 [facility] Other intervertebral disc degeneration, lumbar region Other intervertebral disc degeneration, lumbar region 01/06/2019 [facility] Problem 2019-01-06 11:07:03 [facility] Spondylolisthesis, lumbosacral region Spondylolisthesis, lumbosacral region 01/06/2019 [facility] Problem 2019-01-06 11:07:03 [facility] Spinal stenosis, lumbosacral region Spinal stenosis, lumbosacral region 01/06/2019 [facility] Problem 2019-01-06 11:07:03 [facility] Other specified disorders of bone density and structur e, left thigh Other specified disorders of bone density and structure, left thigh 02/19/2019 [facility] Problem 2019-02-19 11:09:58 [facility] Antineoplastic chemotherapy regimen (procedure) Antineoplastic chemotherapy regimen (procedure) Resolved Problem 11/10/2019 3 weeks ago got last chemo [facility], [facility] Problem Resolved 2019-11-10 23:51:58 [facility] ryan Bonds Hyponatremia (disorder) Hypo natremia (disorder) Resolved Problem 11/10/2019 [facility], ORI Todd,[facility] Problem Resolved 2019-11-10 23:51:58 [facility] ryan Bonds COPD COPD Active Problem 02/23/2020 [facility] Problem Active 2020-02-23 02:03:17 [facility] Sinusitis, Chronic Sinu sitis, Chronic Active Problem 02/23/2020 [facility] Problem Active 2020-02-23 02:03:17 [facility] Asthmatic Bronchitis, Unspecified Asthmatic Bronchitis, Unspecified Active Problem 02/23/2020 [facility] Problem Active 2020-02-23 02:03:17 [facility] Asthma w/Acute Exacerbation As thma w/Acute Exacerbation Active Diagnosis 02/23/2020 [facility] Diagnosis Active 2020-02-23 02:03:17 [facility] Dyspnea Dysp anson Active Diagnosis [facility]2020 [facility] 2020-02-23 02:03:17 [facility] Sinusitis, Acute, Unspecified Sinusitis, Acute, Unspecified Active Diagnosis 02/23/2020 [facility] Diagnosis Active 2020-02-23 02:03:12 [facility] Hyponatremia Hypo natremia Active Diagnosis 02/23/2020 [facility] Diagnosis Active 2020-02-23 02:03:09 [facility] Asthma (disorder) Asth ma (disorder) Active Problem 11/10/2019 Data migrated from [facility] on 02/11/15.Data migrated from [facility] on 02/11/15. [facility], [facility] [place], [facility] [place], [facility] Problem Active 2019-11-10 23:51:58 [facility] Malignant tumor of breast (disorder) Malignant tumor of breast (disorder) Active Problem 11/10/2019 right breast [facility] [place] [place], [facility] Problem Active 2019-11-10 23:51:58 [facility] Cholecystectomy (procedure) Ch olecystectomy (procedure) Active Problem 11/10/2019 [facility] [place] [place], [facility] Problem Active 2019-11-10 23:51:58 [facility] Chronic obstructive lung disease (disorder) Chronic obstructive lung disease (disorder) Active Problem 11/10/2019 [facility] [place] [place], [facility] [place], [facility] Problem Active 2019-11-10 23:51:58 [facility] [place] Fixed suspension procedure of bladder neck (procedure) Fixed suspension procedure of bladder neck (procedure) Active Problem 11/10/2019 [facility] [place] [place], [facility] Problem Active 2019-11-10 23:51:58 [facility] Gastroesophageal reflux disease (disorder) Gastroesophageal reflux disease (disorder) Active Problem 11/10/2019 [facility] [place] [place] Problem Active 2019-11-10 23:51:58 [facility] Hypertensive disorder, systemic arterial (disorder) Hypertensive disorder, systemic arterial (disorder) Active Problem 11/10/2019 [facility] [place] [place], [facility] [place], [facility] Problem Active 2019-11-10 23:51:58 [facility] Hypothyroidism (disorder) Hypo thyroidism (disorder) Active Problem 11/10/2019 [facility] [place] [place] Problem Active 2019-11-10 23:51:58 Marcobenji Bonds Hysterectomy (procedure) Hyst erectomy (procedure) Active Problem 11/10/2019 [facility] Active 2019-11-10 23:51:58 Marco na Bonds Uterine prolapse (disorder) Ut erine prolapse (disorder) Active Problem 11/10/2019 [facility] Active 2019-11-10 2 3:51:58 [facility] Uterine prolapse Uter ine prolapse Active Problem 03/03/2013 [facility] Active 2013-03-03 21:34:08 [facility] Asthma Asth ma Active Problem 03/03/2013 [facility] Active 2013-03-03 21:34:08 [facility] Chronic obstructive pulmonary disease Chronic obstructive pulmonary disease Active Problem 03/03/2013 [facility] Active 2013-03-03 [facility]:34[facility] [place]N - Hypertension HTN - Hypertension Active Problem 03/03/2013 [facility] Active 2013-03-03 21:34:08 [facility] Appendectomy (procedure) Appe ndectomy (procedure) Active Problem 12/27/2014 [facility] Problem Active 2014-12-27 2 2:45:03 [facility] Female urinary stress incontinence (finding) Female urinary stress incontinence (finding) Active Problem 11/10/2019 [facility] Problem Active 2019-11-10 23:51:58 [facility] Midline cystocele (disorder) M idline cystocele (disorder) Active Problem 11/10/2019 [facility] Problem Active 2019-11-10 23:51:58 [facility] Vaginal enterocele (disorder) Vaginal enterocele (disorder) Active Problem 11/10/2019 [facility] Problem Active 2019-11-10 23:51:58 [facility] Rotator Cuff Tendonitis Rota tor Cuff Tendonitis Active 07/28/2013 [facility] Problem Active 2013-07-28 17:48: 18 [facility] ADMINISTRTVE ENCOUNT NOS ADMI NISTRTVE ENCOUNT NOS Active [facility] Diagnosis Active 2015-02-03 21:47:00 [facility] [facility] V[facility]shi OTHER OTHE R Active [facility] Diagnosis Active 2012-09-04 16:51:00 [facility] Vamshi OCL CRTD ART WO INFRCT OCL CRTD ART WO INFRCT Active [facility] Diagnosis Active 2013-03-01 16:06:00 [facility] V[facility]shi LUMP OR MASS IN BREAST LUMP OR MASS IN BREAST Active [facility] Diagnosis Active 2014-10-10 06:06:00 [facility] NAUSEA WITH VOMITING NAUS EA WITH VOMITING Active [facility] Diagnosis Active 2014-12-10 14:06:00 [facility] MALAISE AND FATIGUE NEC ROBEL ISE AND FATIGUE NEC Active [facility] Diagnosis Active 2014-12-10 14:06:00 [facility] FEVER NOS FEVE R NOS Active [facility] Diagnosis Active 2014-12-24 08:39:00 Eliasor ial V[facility] MALIGNANT NEOPLASM OF UNSP SITE OF UNSPE MALIGNANT NEOPLASM OF UNSP SITE OF UNSPE Active [facility] Diagnosis Active 2018-07-11 08:11:00 Brian Bonds CHEST PAIN, UNSPECIFIED CHES T PAIN, UNSPECIFIED Active [facility] Diagnosis Active 2016-02-17 16:02:00 [facility] UNSPECIFIED LUMP IN BREAST UNS PECIFIED LUMP IN BREAST Active [facility] Diagnosis Active 2015-11-07 08:49:0 0 [facility] OTHER SHOULDER LESIONS, UNSPECIFIED SHOU OTHER SHOULDER LESIONS, UNSPECIFIED SHOU Active [facility] Diagnosis Active 2016-08-13 17:25:00 [facility] OTHER DORSALGIA OTHE R DORSALGIA Active [facility] Diagnosis Active 2016-02-03 07:58:00 Mo morial [facility] SECONDARY MALIGNANT NEOPLASM OF BREAST SECONDARY MALIGNANT NEOPLASM OF BREAST Active [facility] Diagnosis Active 2016-02-03 07:58:00 [facility] 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 [facility] Diagnosis Active 2016-08-29 14:23:00 [facility] HYPO-OSMOLALITY AND HYPONATREMIA HYPO-OSMOLALITY AND HYPONATREMIA Active [facility] Diagnosis Active 2016-10-16 10:44:00 [facility] CONSTIPATION, UNSPECIFIED CONS TIPATION, UNSPECIFIED Active [facility] Diagnosis Active 2016-10-16 10:44:0 0 [facility] MALIGNANT NEOPLASM OF UNSP SITE OF RIGHT MALIGNANT NEOPLASM OF UNSP SITE OF RIGHT Active [facility] Diagnosis Active 2019-11-08 11:15:00 Brian Bonds LOW BACK PAIN LOW BACK PAIN Active [facility] Diagnosis Active 2017-04-05 13:01:00 Me irene Bonds PNEUMONIA, UNSPECIFIED ORGANISM PNEUMONIA, UNSPECIFIED ORGANISM Active [facility] Diagnosis Active 2016 15:49:00 Brian Bonds DYSPNEA, UNSPECIFIED DYSP ANSON, UNSPECIFIED Active [facility] Diagnosis Active 2017-07-21 09:02:00 Brian Bonds CHRONIC OBSTRUCTIVE PULMONARY DISEASE W CHRONIC OBSTRUCTIVE PULMONARY DISEASE W Active [facility] Diagnosis Active 2017-07-21 09:02:00 Brian Bonds MALIG NEOPLM OF UPPER-INNER QUADRANT OF MALIG NEOPLM OF UPPER-INNER QUADRANT OF Active [facility] Diagnosis Active 2018-08-01 11:02:00 Brian Bonds UNILATERAL PRIMARY OSTEOARTHRITIS, LEFT UNILATERAL PRIMARY OSTEOARTHRITIS, LEFT Active [facility] Diagnosis Active 2018-06-19 06:19:00 Brian Bonds TROCHANTERIC BURSITIS, LEFT HIP TROCHANTERIC BURSITIS, LEFT HIP Active [facility] Active 2018-06-19 06:19 :00 Brian Bonds AGE-RELATED OSTEOPOROSIS W/O CURRENT PAT AGE-RELATED OSTEOPOROSIS W/O CURRENT PAT Active [facility] Diagnosis Active 2018-08-01 11:02:00 Brian Bonds MALIG NEOPLASM OF UPPER-OUTER QUADRANT O MALIG NEOPLASM OF UPPER-OUTER QUADRANT O Active [facility] Diagnosis Active 2019-01-23 15:37:00 Brian Bonds OTHER INTERVERTEBRAL DISC DEGENERATION, OTHER INTERVERTEBRAL DISC DEGENERATION, Active [facility] Diagnosis Active 2019-04-25 08:53:00 Brian Bonds CYSTOCELE, MIDLINE CYST OCELE, MIDLINE Active [facility] Diagnosis Active 2019-06-09 11:34:00 Mo irene Bonds STRESS INCONTINENCE (FEMALE) (MALE) STRESS INCONTINENCE (FEMALE) (MALE) Active [facility] Diagnosis Active 2019-06-09 11:34:00 Brian Bonds MALIG NEOPLM OF UPPER-OUTER QUADRANT OF MALIG NEOPLM OF UPPER-OUTER QUADRANT OF Active [facility] Diagnosis Active 2019-08-15 12:46:00 Brian Bonds PERSONAL HISTORY OF MALIGNANT NEOPLASM O PERSONAL HISTORY OF MALIGNANT NEOPLASM O Active [facility] Diagnosis Active 2019-11-08 11:15:00 Brian Bonds Malignant neoplasm of unspecified site of right female breast Malignant neoplasm of unspecified site of right female breast 10/21/2018 05/07/2019 [facility] [place] Problem 2018-10-21 05:42:47 05-07 11:39:17 2019-05-07 11:39:17 [facility] Age-related osteoporosis without current pathological fracture Age-related osteoporosis without current pathological fracture 08/08/2018 02/19/2019 [facility] Problem 2018-08-08 03:45:12 2019-0 6-09 11:09:58 2019-02-19 11:09:58 [facility] Unilateral primary osteoarthritis, left hip Unilateral primary osteoarthritis, left hip 06/24/2018 01/06/2019 [facility] Problem 2018-06-24 03:27:08 2019-01-06 11:07:03 2019-01-06 11:07:03 [facility] Malignant neoplasm of unspecified site of unspecified female breast Malignant neoplasm of unspecified site of unspecified female breast 12/28/2017 04/28/2018 [facility] Problem 2017-12-12 7 03:20:36 2018-04-28 05:26:53 2018-04-28 05:26:53 [facility] Her schulte Displaced fracture of triquetrum [cuneif orm] bone, left wrist, initial encounter for closed fracture Displaced fractu re of triquetrum [cuneiform] bone, left wrist, initial encounter for closed fracture 09/05/2017 09/08/2017 [facility] Problem 2017-09-05 0 6:00:00 2017-09-08 02:02:08 2017-09-08 02:02:08 Brian schulte Discharge Diagnosis: Back pain Discharge Diagnosis: Back pain 01/11/2016 01/14/2016 [facility] Problem 2016-01-11 05:00:00 2016-01-14 01:18:23 2016-01-14 01:18:23 [facility] Allergies, Adverse Reactions, Alerts Allergy Name Allergy Type Status Severity Reaction(s) Onset Date Inacti ve Date Treating Clinician Comments Source Le ReyesA. Active Info Not Available 2013-01-24 00:00:00 Brian Bonds "RAW SHRIMP" "RAW SHRIMP" Active [facility] Food Shrimp Food Shrimp Active [facility] No Known Drug Allergies No Known Drug Allergies Active [facility] Social History Social Habit Start Date Stop Date Quantity Comments Source Caffeine: 2014-08-20 00:00:00 2014-08-20 00:00:00 [facility] [place] Social History 2013-07-28 17:48:18 2013-07-28 17:48:18 [facility] Medications Ordered Medication Name Filled Medication Name Start Date Stop Da te Current Medication? Ordering Clinician Indication Dosage Frequency Signature (SIG) Comments Components Source omega-3 polyunsaturated fatty acids 2020-02-23 02:03:17 Yes HARMOHCRISSY MORFINAR 2 cap[facility]) [facility] Linda-C 2020-02-23 02:03:17 Yes HARMOHINDER SHELBIEAR 1 tab(s) [facility] [place] Calcium 600+D 2020-02-23 02:03:17 Yes HARMOHINDER SHELBIEAR 1 tab(s) [facility] Zocor 2020-02-23 02:03:17 Yes HARMOHINDER SHELBIEAR 1 tab(s) [facility] [place] Duexis 2020-02-23 02:03:17 Yes HARMOHCRISSY MORFINAR 1 tab(s) [facility] [place] levothyroxine 2020-02-23 02:03:17 Yes HARMOHCRISSY MORFINAR 1 tab(s) [facility] Spiriva 2020-02-23 02:03:17 Yes TALI MAZARIEGOS inhale one via handihaler one time daily [facility] nn Xopenex 2020-02-23 02:03:17 Yes HARMOHCRISSY MORFINAR 3 ml [facility] Boniva 2020-02-23 02:03:17 Yes HARMOHCRISSY MORFINAR 1 tab(s) [facility] Diovan 2020-02-23 02:03:17 Yes HARMOHCRISSY MORFINAR 1 tab(s) [facility] Linda-C 2020-02-23 02:03:10 Yes HARMOHINDER SHELBIEAR 1 tab(s) [facility] Xopenex 2020-02-23 02:03:10 Yes HARMOHINDER SHELBIEAR 3 ml [facility] [place] Zocor 2020-02-23 02:03:10 Yes HARMOHINDER SHELBIEAR 1 tab(s) [facility] Diovan 2020-02-23 02:03:10 Yes HARMOHINDER SHELBIEAR 1 tab(s) [facility] [place] Calcium 600+D 2020-02-23 02:03:10 Yes HARMOHINDER SHELBIEAR 1 tab(s) [facility] [place] omega-3 polyunsaturated fatty acids 2020-02-23 02:03:10 Yes HARMOHINDER SHELBIEAR 2 cap(s) [facility] Xopenex 2020-02-23 02:03:09 Yes TALI MAZARIEGOS 3 ml Brian Bonds Boniva 2020-02-23 02:03:09 Yes TALI MAZARIEGOS TAKE 1 TAB(S) ONCE A MONTH ORALLY Brian Bonds levothyroxine 2020-02-23 02:03:09 Yes TALI MAZARIEGOS 1 tab(s) Brian Bonds Spiriva 2020-02-23 02:03:09 Yes TALI MAZARIEGOS INHALE ONE VIA HANDIHALER ONE TIME DAILY Brian koch amoxicillin 500 mg oral capsule 2019-07-14 19:43:00 Yes 500 mg = 1 cap, PO, TID, X 7 day, # 21 cap, 0 Refill(s), Pharmacy: [facility][id number] [facility] ciprofloxacin 500 mg oral tablet 2019-07-11 21:10:00 Yes 500 mg = 1 tab, PO, Q12H, for UTI, X 5 day, # 10 tab, 0 Refill(s), Pharmacy: [facility] #[id number] [facility] 24 HR mirabegron 25 MG Extended Release Tablet [Myrbetriq] 2019-07-11 19:23:00 Yes 25 mg = 1 tab, PO, Daily, # 30 tab, 11 Refill(s), Pharmacy: [facility] #[id number] [facility] schulte Ondansetron 2019-06-09 23:14:00 No 4 mg, Route: IVP, Drug form: INJ, ONCE, Dosing Weight 46.875, kg, Start date: 06/09/19 18:14:00 CDT, Stop date: 06/09/19 18:14:00 CDT [facility] Reglan 2019-06-09 23:13:00 No 10 mg, Route: IVP, Drug form: INJ, ONCE, Dosing Weight 46.875, kg, PRN Nausea & Vomiting, Start date: 06/09/19 18:13:00 CDT [facility] 72 HR Scopolamine 0.0139 MG/HR Transdermal Patch 2019-06-09 23:1 2:00 No Notes: Change patch every 72 hours (Same as: Transde rm-Scop) [facility] Pepcid 2019-06-09 21:40:00 No Notes: (Same as: Pepcid) Can be dilute in 5-10cc NS IVP: Slow IV push over at least 2 minutes. [facility] Dexamethasone 2019-06-09 21:40:00 No 8 mg, Route: IM, ONCE, Dosing Weight 46.875, kg, Start date: 06/09/19 16:40:00 CDT, Stop date: 06/09/19 16:40:00 CDT [facility] Cefuroxime 500 MG Oral Tablet [Ceftin] 2019-06-09 20:24:00 Yes 500 mg = 1 tab, PO, BID, X 5 day, # 10 tab, 0 Refill(s), Pharmacy: [facility] #[id number] [facility] Calcium Chloride 0.0014 MEQ/ML / Potassi um Chloride 0.004 MEQ/ML / Sodium Chloride 0.103 MEQ/ML / Sodium Lactate 0.028 MEQ/ML Injectable Solution 2019-06-09 19:57:00 No 1,000 mL, Rate: 125 ml/hr, Infuse over: 8 hr, Route: IV, Dosing Weight 46.875 kg, Total Volume: 1,000, Start date: 06/09/19 14:57:00 CDT, Duration: 30 day, Stop date: 07/09/19 14:56:00 CDT, 1.44, m2, 0 [facility] Labetalol 2019-06-09 19:57:00 No 10 mg, 2 mL, Route: IVP, Drug form: INJ, Q5Min, Dosing Weight 46.875, kg, PRN Elevated BP, Start date: 06/09/19 14:57:00 CDT, Duration: 5 doses or times, Stop date: Limited # of times, 0 [facility] Acetaminophen 2019-06-09 19:57:00 No Notes: Infuse over 15 minutes Do not exceed 4gm/day of acetaminophen MEDICATION WASTE Product Size: 1000 mg Product Wasted: ___ mg [facility] Fent[facility] 2019-06-09 19:57:00 No Notes: (Same as: Sublimaze) Preservative free. [facility] Hydromorphone 2019-06-09 19:57:00 No Notes: Same as Dilaudid [facility] Flumazenil 2019-06-09 19:57:00 No Notes: (S karyn as: Romazicon) [facility] Naloxone 2019-06-09 19:57:00 No Notes: Same as Narcan [facility] Diphenhydramine 2019-06-09 19:57:00 No Notes: (Same as: Benadryl) [facility] Ondansetron 2019-06-09 19:57:00 No Notes: (Same as: Zofran) MEDICATION WASTE Product Size: 4 mg Product Wasted: ___ mg [facility] acetaminophen ([facility] 2019-06-09 19:26:00 No Route: IV, Drug form: INJ, ONCE, Stop date: 06/09/19 14:26:00 CDT [facility] glycopyrrolate ([facility] 2019-06-09 19:05:00 No Route: IV, Drug form: INJ, ONCE, Stop date: 06/09/19 14:05:00 CDT [facility] fentaNYL ([facility] 2019-06-09 19:00:00 No Route: IV, Drug form: INJ, ONCE, Stop date: 06/09/19 14:00:00 [facility] 2019-06-09 18:45:00 No Route: IV, Drug form: INJ, ONCE, Stop date: 06/09/19 13:45:00 [facility] propof[facility] ([facility] 2019-06-09 18:45:00 No Route: IV, Drug form: INJ, ONCE, Stop date: 06/09/19 13:45:00 [facility]T [facility]ans[facility] ([facility] 2019-06-09 18:45:00 No Route: IV, Drug form: INJ, ONCE, Stop date: 06/09/19 13:45:00 CDT [facility] dexamethasone ([facility]) 2019-06-09 18:45:00 No Route: IV, Drug form: INJ, ONCE, Stop date: 06/09/19 13:45:00 CDT [facility] ePHEDrine ([facility]) 2019-06-09 18:35:00 No Route: IV, Drug form: INJ, ONCE, Stop date: 06/09/19 13:35:00 CDT [facility] ceFAZolin ([facility]) 2019-06-09 18:30:00 No Route: IV, Drug form: INJ, ONCE, Stop date: 06/09/19 13:30:00 CDT Radha Bonds Lactated Ringers Injection IV (ANES) 1000 mL 2019-06-09 17:39:00 No Route: IV, Total Volume: 1,000, Start date: 06/09/19 12:39:00 CDT, Stop date: 06/09/19 13:39:00 CDT Brian Bonds taMOXifen 20 mg oral tablet 2019-06-06 19:36:00 Yes 20 mg = 1 tab, PO, Daily, 0 Refill(s) Brian Bonds Linda-C 1000 mg oral tablet 2019-06-06 18:03:00 Yes 1,000 mg = 1 tab, PO, Daily, 0 Refill(s) Brian schulte Probiotic Formula 2019-06-06 18:01:00 No PO , Daily, 0 Refill(s) Brian Bonds omeprazole 20 mg oral delayed release capsule 2019-06-06 18:01:0 0 Yes 20 mg = 1 cap, PO, Daily, 0 Refill(s) Brian Bonds Levalbuterol 0.21 MG/ML Inhalant Solution [Xopenex] 06-06 17:58:00 Yes 0.63 mg = 3 mL, NEB, TID, 0 Refill(s) Brian Bonds Advair Diskus 500 mcg-50 mcg inhalation powder 2019-06-06 17:58: 00 Yes INHALATION, BID, 0 Refill(s) Brian Bonds Ventolin HFA 90 mcg/inh inhalation aerosol with adapter 2019-06-06 17:57:00 Yes 2 puff, INHALER , Q4H, PRN wheezing, coughing, or shortness of breath, # 8 gm, 1 Refill(s) Brian schulte Ipratropium [place] 0.2 MG/ML Inhalant Solution 2017-07-23 16:34 :59 Yes 0.5 mg, NEB, Q6H, PRN wheezing, # 120 ea, 0 Refill(s) Brian Bonds Ventolin HFA 90 mcg/inh inhalation aerosol with adapter 2017-07-23 16:26:00 Yes 180 microgram = 2 puff, INHALATION, QID, NEEDED, # 1 ea, 0 Refill(s) Brian Bonds Ipratropium [place] 0.2 MG/ML Inhalant Solution 2017-07-23 16:26 :00 No 0.5 mg, NEB, Q6H, PRN wheezi ng, # 120 ea, 0 Refill(s), Pharmacy: [facility] [id number] [facility] multivitamin 2017-07-23 15:00:00 No Notes: (Same as:One Tab Daily, Tab-A-Nadir + Beta Carotene) Give with food. [facility] valsartan 2017-07-23 15:00:00 No Notes: Pam Phan [facility] Lactobacillus acidophilus 2017-07-23 15:00:00 No 1 cap, Route: PO, Drug Form: CAP, Dosing Weight 49.545, kg, Daily, Start date: 07/23/17 9:00:00 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, Duration: 30 day, Stop date: 08/21/17 9:00:00 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 [facility] methylPREDNISolone SODium SUCCinate 2017-07-23 15:00:00 No Notes: (Same as:Solu-MEDROL, A-Methapred) Jojo abbott [place] lactobacillus rhamnosus GG 2017-07-23 15:00:00 No Notes: Same as Culturelle [facility] Vitamin C 2017-07-23 15:00:00 No Notes: (Sa as: Vitamin C) [facility] Thyroxine 2017-07-23 13:30:00 No Notes: Take 1 hour before or 2 hours after meal; Enteral feeds may interefere with the absorption of this medication. (Same as:Synthroid, Levothroid) [facility] gabapentin 300 MG Oral Capsule 2017-07-23 03:00:00 No Notes: (Same as: Neurontin) [facility] valsartan 2017-07-23 00:15:00 No Notes: Same as Emilie ----order reentered-- [facility] valsartan 2017-07-22 23:00:00 No Notes: Same as Emilie ----MD asked us to DC VAlsartan 80mg BID order [facility] Docusate Sodium 100 MG Oral Capsule [Colace] 2017-07-22 23:00:00 No Notes: (Same as: Colace) (Do Not Crush) [facility] Citracal + D 315 mg-250 intl units oral tablet 2017-07-22 23:00: 00 No Notes: Non-Formulary Medication (Same As: Citracal Caplets Plus D) Brian Bonds anastrozole 2017-07-22 18:00:00 No Notes: (Same as: Arimidex) Chemotherapy agent/Handle with caution WASTE: F/P - Black; E - Yellow Brian Bonds Amlodipine 2017-07-22 17:30:00 No Notes: (S karyn as: Norvasc) Brian Bonds albuterol 2017-07-22 17:20:00 No Notes: SEE RT DOCUMENTATION (Same as: Proventil) Brian Bonds Sodium Chloride 0.111 MEQ/ML Nasal Solution [[place] Saline Nasa l] 2017-07-22 16:23:00 No Notes: (Same as: [place], [place] Nasal [place]). Brian Bonds Xopenex 2017-07-22 16:22:00 No 0.63 mg, 3 mL, Route: NEB, Drug form: SOLN, Q8H, Dosing Weight 49.545, kg, PRN Wheezing, Start date: 07/22/17 10:22:00 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, Duration: 30 day, Stop date: 08/21/17 10:21:00 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 Brian Bonds Lactulose 667 MG/ML Oral Solution 2017-07-22 16:21:00 No Notes: (Same as:Chronulac) Brian Fryeann Fluticasone propionate 0.05 MG/ACTUAT Metered Dose Nasal Spr ay 2017-07-22 16:21:00 No Notes: (Same as: Flonase) Brian Fryeann Azelastine hydrochloride 0.137 MG/ACTUAT Metered Dose Nasal [place] [Astelin] 2017-07-22 16:20:00 No Notes: (azelastine 137 microgram/inh 34 ml nasal SPR) Non-formulary drug. Same As: Astelin) Brian [place] tiotropium 0.018 MG/ACTUAT Inhalant Powder [Spiriva] 07-22 15:00:00 No Notes: (Same As: Spiriva) Brian Fryeann Advair Diskus 500 mcg-50 mcg inhalation powder 2017-07-22 15:00: 00 No Notes: Non-Formulary Drug (Same as: Advair) Brian [place]eland Simvastatin 2017-07-22 03:00:00 No Notes: ( Same as: Zocor) Brian Bonds Protonix 2017-07-22 02:30:00 No Notes: Tablet should not be chewed or crushed. (Same as: Protonix) Brian Bonds Azithromycin 2017-07-22 01:00:00 No Notes: (Same As: Zithromax IV) Brian Bonds cefTRIAXone + water for INJection, sterile 10 mL 2017-07-21 22:0 0:00 No Notes: (Same As: Rocephin). Use with 100 mL NS and infuse over 30 min MEDICATION WASTE Product Size: 1000 mg Product Wasted: ___ mg Brian Vamshi sodium chloride 0.9% 1000 ml INJ 1,000 mL 2017-07-21 19:44:00 No 1,000 mL, Rate: 50 ml/hr, Infuse over: 20 hr, Route: IV, Dosing Weight 49.545 kg, Total Volume: 1,000, Start date: 07/21/17 13:44:00 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, Duration: 30 day, Stop date: 08/20/17 13:43:00 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 Felix Bonds levofloxacin 500 mg oral tablet 2017-07-21 17:54:00 Yes 500 mg = 1 tab, PO, Daily, # 7 tab, 0 Refill(s) Elias Bonds predniSONE 10 mg oral tablet 2017-07-21 17:51:00 Yes 10 mg = 1 tab, PO, Daily, take 3 tab daily x3, 2 tab daily x2, 1 tab daily x2, then dc., 0 Refill(s) Brian Bonds anastrozole 1 mg oral tablet 2017-07-21 17:35:00 Yes 1 mg = 1 tab, PO, Daily, # 30 tab, 0 Refill(s) Felix Bonds valsartan 320 mg oral tablet 2017-07-21 17:35:00 Yes 320 mg = 1 tab, PO, Daily, # 30 tab, 0 Refill(s) [facility] omeprazole 20 mg oral delayed release capsule 2017-07-21 17:35:0 0 Yes 20 mg = 1 cap, PO, Daily, # 30 cap, 0 Refill(s) Brian Bonds Sodium Chloride 0.111 MEQ/ML Nasal Solution [[place] Saline Nasa l] 2017-07-21 17:35:00 Yes 2 drp, NASAL, PRN, 0 Refill(s ) [facility] V[facility] Promethazine Hydrochloride 25 MG Oral Tablet 2017-07-21 17:35:00 Yes 25 mg = 1 tab, PO, Q4H, PRN Nausea/Vomiting, # 15 tab, 0 Refill( s) [facility] Azelastine hydrochloride 0.137 MG/ACTUAT Metered Dose Nasal [place] [Astelin] 2017-07-21 17:35:00 Yes 2 spray, NASAL, AR N, 0 Refill(s) [facility] gabapentin 300 MG Oral Capsule 2017-07-21 17:35:00 Yes 300 mg = 1 cap, PO, Bedtime, 0 Refill(s) [facility] graciela valsartan 2017-07-21 16:10:00 No Notes: Pam Phan [facility] Enoxaparin 2017-07-21 15:00:00 No Notes: (S karyn as: Lovenox) [facility] methylPREDNISolone SODium SUCCinate 2017-07-21 06:00:00 No Notes: (Same as:Solu-MEDROL, A-Methapred) Memor ial Vam[facility] Xopenex 2017-07-21 02:00:00 No Notes: SEE RT DOCUMENTATION (Same as:Xopenex) Non-Formulary [facility] Leatha nn albuterol 2017-07-21 02:00:00 No Notes: SEE RT DOCUMENTATION (Same as: Proventil) [facility] Trazodone 2017-07-21 01:44:00 No Notes: (Sa me As: Desyrel) [facility] Codeine Phosphate 2 MG/ML / Guaifenesin 20 MG/ML Oral Soluti on 2017-07-21 01:44:00 No Notes: (Same As: Robitussin A C) [facility] Diphenhydramine 2017-07-21 01:44:00 No Notes: (Same as: Benadryl) [facility] Acetaminophen 2017-07-21 01:44:00 No Notes: Do not exceed 4 gm/day. (Same as: Tylenol) [facility] Milk of Magnesia 2017-07-21 01:44:00 No Notes: (Same as: Milk of Magnesia, MOM) [facility] potassium phosphate 2017-07-21 01:44:00 No Notes: (Same as: K Phosphate.) 1 mMol phoshate has 1.47 mEq potassium Infuse over 4 hours [facility] Magnesium Sulfate 2017-07-21 01:44:00 No Notes: WASTE: F/P - Sink; E - [employer] [facility] sodium phosphate 2017-07-21 01:44:00 No 30 mmol, 10 mL, Route: IVPB, PRN, Dosing Weight 49.545, kg, PRN Abnormal Lab Result, For NON-ICU Patients Only., Start date: 07/20/17 19:44:00 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, Duration: 30 day, Stop date: 08/19/17 19:43:00 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 [facility] Magnesium Oxide 2017-07-21 01:44:00 No Notes: (Same as: Mag-Ox 400) Magnesium oxide [id number] elemental magnesium Dose=____mg magnesium oxide (___mg elemental magnesium) [facility] Calcium Gluconate 2017-07-21 01:44:00 No Notes: WASTE: F/P - Sink; E - [facility] Potassium Chloride 2017-07-21 01:44:00 No Notes: (Same as: K-Dur 20) "Do Not Crush" With food and full glass of water [facility] potassium phosphate-sodium phosphate 250 mg-280 mg-160 mg oral powder for reconstitution 2017-07-21 01:44:00 No Notes: (Same as: Phos-NaK) Each 1.5 gm pkt has 250mg phosphorous. Mix w/2.5oz water and stir. [facility] Hydralazine 2017-07-21 01:33:00 No Notes: (Same as: Apresoline) Push over 5 minutes [facility] Benadryl 2017-07-21 01:24:00 No 25 mg, Route: IVP, ONCE, Dosing Weight 49.545, kg, PRN Itching, Start date: 07/20/17 19:24:00 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 [facility] Enoxaparin 2017-07-21 01:00:00 No 30 mg, Route: SUB-Q, Drug form: INJ, [id number], Dosing Weight 49.545, kg, Start date: 07/20/17 19:00:00 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, Duration: 30 day, Stop date: 08/19/17 7:00:00 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 [facility] Xopenex 2017-07-21 01:00:00 No 0.63 mg, Route: INHALATION, [id number], Dosing Weight 49.545, kg, Start date: 07/20/17 19:00:00 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, Duration: 30 day, Stop date: 08/19/17 13:00:00 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 Felix Bonds Ceftriaxone 2017-07-21 01:00:00 No 1 gm, Route: IVPB, [id number], Dosing Weight 49.545, kg, Start date: 07/20/17 19:00:00 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, Duration: 5 day, Stop date: 07/24/17 19:00:00 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, ABX Indication: Non-PNA Respiratory Tract Infection [facility] Morphine 2017-07-21 00:52:00 No Not es: (Same as:MORPhine Sulfate) [facility] Ondansetron 2017-07-21 00:52:00 No Notes: (Same as: Calixto) MEDICATION WASTE Product Size: 4 mg Product Wasted: ___ mg [facility] Acetaminophen 2017-07-21 00:52:00 No Notes: Do not exceed 4 gm/day. (Same as: Tylenol) [facility] Ipratropium [place] 0.2 MG/ML Inhalant Solution 2017-07-21 00:15 :00 No Notes: SEE RT DOCUMENTATION (Same as:Atrovenconor) [facility] Saline Flush 0.9% 2017-07-21 00:05:00 No Notes: Same as: BD Posiflush Sterile [facility] Benadryl 2017-07-21 00:03:00 No Notes: (Rangel e as: Bendomenicaryl) [facility] Symbicort 160/4.5 inhalation aerosol with adapter 2017-07-21 00:02:00 No Notes: (Same as: Symbicort) WASTE: Aerosol - R eturn to Pharmacy [facility] sodium chloride 0.9% 1000 ml INJ 1,000 mL 2017-07-20 23:22:00 No 1,000 mL, Rate: 100 ml/hr, Infuse over: 10 hr, Route: IV, Dosing Weight 49.545 kg, Total Volume: 1,000, Start date: 07/20/17 17:22:00 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, Duration: 30 day, Stop date: 08/19/17 17:21:00 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 Felix yury Bonds Solu-Medrol 2017-07-20 22:38:00 No Notes: (Same as:Solu-MEDROL, A-Methapred) Brian Bonds Levaquin 2017-07-20 22:37:00 No Notes: (Rangel e as:Levaquin) Brian Bonds cefTRIAXone + water for INJection, sterile 10 mL 2017-07-20 21:4 1:00 No Notes: (Same As: Rocephin). Use with 100 mL NS and infuse over 30 min MEDICATION WASTE Product Size: 1000 mg Product Wasted: ___ mg [facility] Azith[facility] 2017-07-20 20:32:00 No Notes: (Same As: Zithromax IV) [facility] Rocephin 2017-07-20 20:32:00 No 1 gm, Route: IVPB, Drug form: PDR/INJ, ONCE, Dosing Weight 49.545, kg, Priority: STAT, Start date: 07/20/17 14:32:00 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, Duration: 1 doses or times, Stop date: 07/20/17 14:32:00 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, ABX Indication: Pneumonia [facility] Albuterol 0.833 MG/ML / Ipratropium [place] 0.167 MG/ML Inha lant Solution 2017-07-20 19:47:00 No Notes: (Same as: Lisa garcia) [facility] Saline Flush 0.9% 2017-07-20 18:58:00 No Notes: Same as: BD Posiflush Sterile [facility] Venlafaxine HCl ER 37.5 MG Oral Capsule Extended Relea se 24 Hour Venlafaxine HCl ER 37.5 MG Oral Capsule Extended Release 24 Hour 2017-01-29 00:00:00 Yes LOKI PURDY M.D. TAKE 1 CAPSU LE AT BEDTIME FOR 2 WEEKS ; 2 CAPSULES AT BEDTIME 2 WEEKS [facility] Gabapentin 300 MG Oral Capsule Gabapentin 300 MG Oral Capsul e 2017-01-01 00:00:00 Yes LOKI PURDY M.D. Q0.3333D TAKE ONE CAPSULE BY MOUTH THREE TIMES DAILY [facility] demeclocycline 150 mg oral tablet 2016-10-16 18:03:00 Yes 300 mg = 2 tab, PO, BID, X 15 day, # 60 tab, 0 Refill(s) Brian Bonds Miralax 2016-10-16 15:00:00 No 17 gm, Route: PO, Daily, Dosing Weight 46.364, kg, Start date: 10/16/16 9:00:00 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, Duration: 30 day, Stop date: 11/14/16 9:00:00 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 [facility] Melva ojrje Thyroxine 2016-10-16 13:30:00 No Notes: Take 1 hour before or 2 hours after meal; Enteral feeds may interefere with the absorption of this medication. (Same as:Synthroid, Levothroid) [facility] Zocor 2016-10-16 03:00:00 No Notes: (Same a s: Zocor) [facility] pantoprazole 2016-10-15 22:30:00 No Notes: Tablet should not be chewed or crushed. (Same as: Protonix) emoantoinekeaton Bonds Demeclocycline 2016-10-15 19:20:00 No Notes: (Same As: Declomycin) [facility] Lactulose 667 MG/ML Oral Solution 2016-10-15 19:03:00 No Notes: (Same as:Chronulac) [facility] Lactulose 667 MG/ML Oral Solution 2016-10-15 19:02:00 No Notes: (Same as:Chronulac) [facility] Vamshi Acetaminophen 325 MG / Hydrocodone Bitartrate 5 MG Oral Tabl et [[place] 5/325] 2016-10-15 17:09:00 No Notes: (Same as: [place] 325/5) Do not exceed 4gm/day of acetaminophen. [facility] nn tiotropium 0.018 MG/ACTUAT Inhalant Powder [Spiriva] 10-15 15:00:00 No Notes: (Same As: Spiriva) [facility] omega-3 polyunsaturated fatty acids 2016-10-15 15:00:00 No Notes: (Same as: MaxEPA, [place] 3 fish oil ) Non-Formulary Drug [facility] [place] Megestrol Acetate 40 MG/ML Oral Suspension 2016-10-15 15:00:00 No Notes: WASTE: F/P - Black; E - Yellow Mo morial Vamshi Losartan 2016-10-15 15:00:00 No Notes: (Rangel e as: Cozaar) Brian Bonds Docusate Sodium 100 MG Oral Capsule [Colace] 2016-10-15 15:00:00 No Notes: (Same as: Colace) (Do Not Crush) Brian Bonds Miralax 2016-10-15 15:00:00 No Notes: Dissolve in 8 oz of water or juice. (Same as: Miralax) Brian Zhang nn calcium-vitamin D 315 mg-200 intl units oral tablet 10-15 15:00:00 No Notes: (Same As: Citracal Caplets Plus D ) [facility] Vamshi Advair Diskus 500 mcg-50 mcg inhalation powder 2016-10-15 15:00: 00 No 1 puff, Route: INHALATION, Drug Form: AE RO, Dosing Weight 46.364, kg, BID, Start date: 10/15/16 9:00:00 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, Duration: 30 day, Stop date: 11/13/16 17:00:00 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 [facility] Vamshi Osteo Bi-Flex 2016-10-15 15:00:00 No 1 tab, Route: PO, Dosing Weight 46.364, kg, Daily, Start date: 10/15/16 9:00:00 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, Duration: 30 day, Stop date: 11/13/16 9:00:00 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 [facility] Melva recinos calcium-vitamin D 600 mg-200 units oral tablet 2016-10-15 15:00: 00 No 1 tab, Route: PO, Drug Form: TAB, Dosing Weight 46.364, kg, Daily, Start date: 10/15/16 9:00:00 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, Duration: 30 day, Stop date: 11/13/16 9:00:00 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 [facility] Vamshi Budesonide 0.25 MG/ML Inhalant Solution [Pulmicort] 10-15 15:00:00 No Notes: (Same As: Pulmicort) [facility] Vitamin C 2016-10-15 15:00:00 No Notes: (Sa me as: Vitamin C) [facility] Vamshi Amlodipine 2016-10-15 15:00:00 No Notes: (S karyn as: Norvasc) [facility] anastrozole 2016-10-15 15:00:00 No Notes: (Same as: Arimidex) Chemotherapy agent/Handle with caution WASTE: F/P - Black; E - Yellow [facility] albuterol 2016-10-15 14:58:00 No Notes: SEE RT DOCUMENTATION (Same as: Provenkatelin) Brian Bonds Ventolin HFA 90 mcg/inh inhalation aerosol with adapter 2016-10-15 14:44:00 No Notes: Albutero l 90 microgram/inh 8gm HFA WASTE: Aerosol - Return to Pharmacy Same as: Brennen Arzatetil Brian Bonds Enoxaparin 2016-10-15 14:00:00 No Notes: (S karyn as: Lovenox) Brian Bonds Fleet Enema 2016-10-15 13:15:00 No 133 mL, Route: AR, Drug Form: GAVIN, Dosing Weight 46.364, kg, ONCE, Start date: 10/15/16 7:15:00 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, Stop date: 10/15/16 7:15:00 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 Brian recinos Zofran 2016-10-15 13:03:00 No Notes: (Same as: Zofran) Brian Bonds Xopenex 2016-10-15 13:03:00 No 0.63 mg, 3 mL, Route: NEB, Drug form: SOLN, Q8H, Dosing Weight 46.364, kg, PRN Wheezing, Start date: 10/15/16 7:03:00 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, Duration: 30 day, Stop date: 11/14/16 7:02:00 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 Brian Bonds Lactulose 667 MG/ML Oral Solution 2016-10-15 13:03:00 No Notes: (Same as:Chronulac) Brian Bonds Sodium Chloride 2016-10-15 07:26:00 Yes 1,000 mg =, PO, BID, 0 Refill(s) Brian Bonds anastrozole 2016-10-15 07:26:00 Yes 2 mg, PO, Daily, 0 Refill(s) Brian Bonds Amlodipine 2016-10-15 07:26:00 Yes 1 0 mg, PO, Daily, 0 Refill(s) Brian Bonds losartan 100 mg oral tablet 2016-10-15 07:26:00 Yes 100 mg = 1 tab, PO, Daily, # 30 tab, 0 Refill(s) Memoria l Vamshi Furosemide 20 MG Oral Tablet 2016-10-15 07:26:00 No 20 mg = 1 tab, PO, Daily, # 30 tab, 0 Refill(s) Memoria yury Bonds Sodium Chloride 0.154 MEQ/ML Injectable Solution 2016-10-15 04:0 5:00 No 1,000 mL, Rate: 60 ml/hr, In fuse over: 16.7 hr, Route: IV, Dosing Weight 47.273 kg, Total Volume: 1,000, Start date: 10/14/16 22:05:00 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, Duration: 30 day, Stop date: 11/13/16 22:04:00 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 Mo morikeaton Bonds Sodium Chloride 0.154 MEQ/ML Injectable Solution 2016-10-15 03:4 0:00 No 1,000 mL, Rate: 125 ml/hr, I nfuse over: 8 hr, Route: IV, Dosing Weight 47.273 kg, Total Volume: 1,000, Start date: 10/14/16 21:40:00 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, Duration: 30 day, Stop date: 11/13/16 21:39:00 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 Mo irene Bonds Saline Flush 0.9% 2016-10-15 03:40:00 No Notes: Same as: BD Posiflush Sterile [facility] Ondansetron 2016-10-15 03:40:00 No Notes: (Same as: Zofran) MEDICATION WASTE Product Size: 4 mg Product Wasted: ___ mg [facility] Morphine 2016-10-15 03:40:00 No Not es: (Same as:MORPhine Sulfate) [facility] Omnipaque 300 2016-10-15 02:00:00 No Notes: (Same as:Omnipaque 300). 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 [facility] Zofran 2016-10-14 21:56:00 No Notes: (Same as: Zofran) MEDICATION WASTE Product Size: 4 mg Product Wasted: ___ mg [facility] Morphine 2016-10-14 21:56:00 No Not es: (Same as:MORPhine Sulfate) [facility] sodium chloride 0.9% 1000 ml INJ 1,000 mL 2016-10-14 21:55:00 No 1,000 mL, Rate: 1,000 ml/hr, Infuse over: 1 hr, Route: IV, Dosing Weight 47.273 kg, Total Volume: 1,000, Priority: STAT, Start date: 10/14/16 15:55:00 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, Duration: 1 doses or times, Stop date: 10/14/16 16:54:00 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 [facility] Saline Flush 0.9% 2016-10-14 21:15:00 No Notes: Same as: BD Posiflush Sterile [facility] Ondansetron 2016-10-14 21:15:00 No Notes: (Same as: Zofraria) MEDICATION WASTE Product Size: 4 mg Product Wasted: ___ mg [facility] 12 HR Orphenadrine Citrate 100 MG Extended Release Tablet 2016-01-11 18:22:00 Yes 100 mg = 1 tab , PO, BID, X 10 day, # 20 tab, 0 Refill(s), Pharmacy: [facility][id number] Saline Flush 0.9% 2016-01-11 15:44:00 No Notes: Same as: BD Posiflush Sterile [facility] Morphine 2016-01-11 15:42:00 No Not es: (Same as:MORPhine Sulfate) [facility] Orphenadrine 2016-01-11 15:42:00 No 60 mg, 2 mL, Route: IVP, Drug form: INJ, ONCE, Dosing Weight 51.818, kg, Priority: STAT, Start date: 01/11/16 10:42:00 CDT, Stop date: 01/11/16 10:42:00 CDT [facility] Ketorolac 2016-01-11 15:42:00 No 4 days MEDICATION WASTE Product Size: 30 mg Product Wasted: ___ mg [facility] Omnipaque 300 2016-01-07 16:00:00 Yes Notes: (Same as:Omnipaque 300). WASTE: F/P - Black; E - Municipal Trash Bin [facility] Sodium Chloride 1000 MG Oral Tablet 2015-01-30 22:00:00 No 2 gm, 2 tab, Route: PO, Drug form: TAB, TID, Dosing Weight 52.006, kg, Start date: 01/30/15 17:00:00, Duration: 30 day, Stop date: 03/01/15 13:00:00 Brian Bonds Xopenex 2015-01-30 20:00:00 No Notes: SEE RT DOCUMENTATION (Same as:Xopenex) Non-Formulary Brian Zhang nn colistimethate 2015-01-30 16:56:00 Yes Special Instructions: 7 days Brian Bonds Budesonide 0.25 MG/ML Inhalant Solution [Pulmicort] 01-30 16:56:00 Yes 0.5 mg = 2 mL, NEB, BID, 0 Refill(s) Brian Bonds predniSONE 20 mg oral tablet 2015-01-30 16:56:00 Yes Special Instructions: 16 day regimen: Days 1-4 - 40 mg (2 tabs) daily Days 5-8 - 30 mg (1 1/2 tabs) daily Days 9-12 - 20 mg (1 tab) daily Day 13-16 - 10 mg (1/2 tab) daily Brian Bonds Sodium Chloride 1000 MG Oral Tablet 2015-01-30 16:56:00 No 3 gm = 3 tab, PO, ABXQ8H, # 270 tab, 2 Refill(s) Brian Bonds pantoprazole 40 mg oral enteric coated tablet 2015-01-30 16:56:0 0 Yes 40 mg = 1 tab, PO, Before Breakfast, 0 Refill(s) Brian Bonds Megestrol Acetate 40 MG/ML Oral Suspension 2015-01-30 16:56:00 Yes 400 mg = 10 mL, PO, BID, 0 Refill(s) [facility] orial [place] Docusate Sodium 100 MG Oral Capsule [Colace] 2015-01-30 16:56:00 Yes 100 mg = 1 cap, PO, BID, 0 Refill(s) Brian Bonds Lactulose 667 MG/ML Oral Solution 2015-01-30 16:56:00 Yes 20 gm = 30 mL, PO, Q8H, PRN Constipation, 0 Refill(s) Brian Fryeann Enoxaparin 2015-01-30 16:56:00 Yes 40 mg = 0.4 mL, SUB-Q, [id number], 0 Refill(s) [facility] Vamshi Prednisone 2015-01-30 14:00:00 No Notes: Ta ke with food. [facility] Dulcolax Laxative 2015-01-30 01:55:00 No Notes: (Same As: Dulcolax, Correctol) (Do Not Crush) "Do Not Crush" [facility] heparin flush 2015-01-29 22:22:00 No Notes: (Same as: Heparin Lock Flush) [facility] Protonix 2015-01-29 15:00:00 No Notes: Tablet should not be chewed or crushed. (Same as: Protonix) [facility] Vamshi Sodium Chloride 1000 MG Oral Tablet 2015-01-29 15:00:00 No 3 gm, 3 tab, Route: PO, Drug form: TAB, [id number], Dosing Weight 52.006, kg, Start date: 01/29/15 10:00:00, Duration: 30 day, Stop date: 02/28/15 2:00:00 [facility] methylPREDNISolone SODium SUCCinate 2015-01-29 05:00:00 No Notes: (Same as:Solu-MEDROL, A-Methapred) Memor ial [place] Lactulose 2015-01-28 21:25:00 No Notes: (Sa ok as:Chronulac) [facility] Vamshi D5W 1,000 mL 2015-01-27 13:12:00 No 1,000 mL, Rate: 20 ml/hr, Infuse over: 50 hr, Route: IV, Dosing Weight 52.006 kg, Total Volume: 1,000, Start date: 01/27/15 8:12:00, Duration: 30 day, Stop date: 02/26/15 8:11:00 [facility] Vamshi Dextrose 50% Syringe 2015-01-26 23:22:00 No 12.5 gm, 25 mL, Route: IVP, Drug Form: INJ, Dosing Weight 52.006, kg, PRN, PRN Blood Glucose Results, Start date: 01/26/15 18:22:00, Duration: 30 day, Stop date: 02/25/15 18:21:00 [facility] Vamshi Glucagon 2015-01-26 23:22:00 No 1 mg, Route: IM, Drug form: PDR/INJ, PRN, Dosing Weight 52.006, kg, PRN Blood Glucose Results, Start date: 01/26/15 18:22:00, Duration: 30 day, Stop date: 02/25/15 18:21:00 [facility] Insulin, Aspart, Human 2015-01-26 23:22:00 No Notes: Roll in palms of hands gently; Do not shake vigorously. (Same as: NovoLOG) "single patient use only" Stable for 28 days at room temperature. Expires in days from Date [facility] Docusate Sodium 100 MG Oral Capsule [Colace] 2015-01-26 22:00:00 No Notes: (Same as: Colace) (Do Not Crush) [facility] Vamshi Vancomycin 2015-01-26 22:00:00 No 1 gm, 200 mL, Route: IVPB, Drug form: INJ, [id number], Dosing Weight 51.364, kg, Start date: 01/26/15 17:00:00, Duration: 30 day, Stop date: 02/24/15 17:00:00 [facility] Megace 2015-01-26 16:00:00 No 400 mg, 10 mL, Route: PO, Drug form: SUSP, BID, Dosing Weight 52.006, kg, Start date: 01/26/15 11:00:00, Duration: 30 day, Stop date: 02/25/15 9:00:00 Carol Ann Hutchinson normal saline 0.9% IV 1,000 mL 2015-01-26 15:12:00 No 1,000 mL, Rate: 50 ml/hr, Infuse over: 20 hr, Route: IV, Dosing Weight 52.006 kg, Total Volume: 1,000, Start date: 01/26/15 10:12:00, Duration: 30 day, Stop date: 02/25/15 10:11:00 [facility] potassium chloride 2015-01-26 15:00:00 No Notes: (Same as: K-Dur 20) "Do Not Crush" With food and full glass of water [facility] Magnesium Oxide 2015-01-26 15:00:00 No Notes: (Same as: Mag-Ox 400) Magnesium oxide [id number] elemental magnesium Dose=____mg magnesium oxide (___mg elemental magnesium) Brian schulte Calcium Gluconate 2015-01-26 15:00:00 No Special Instructions: FOR ICU USE ONLY Brian Bonds Magnesium Sulfate 2015-01-26 15:00:00 No Special Instructions: FOR ICU USE ONLY Brian Bonds potassium phosphate + Sodium Chloride 0.9% IV 250 mL 01-26 15:00:00 No Notes: (Same as: K Phosphate.) 1 mMol phoshate has 1.47 mEq potassium Infuse over 4 hours Brian Bonds Neutra-Phos 2015-01-26 15:00:00 No Notes: (Same as: Neutra-Phos) Each 1.25 gm pkt has 250mg phosphorous. Mix w/2.5oz water and stir. Brian Bonds sodium phosphate + Sodium Chloride 0.9% IV 250 mL 2015-01-26 15:00:00 No Special Instructions: FOR ICU USE ONLY Brian Bonds Calcium Carbonate 500 MG Chewable Tablet 2015-01-26 15:00:00 No Notes: (Same As: Tums) Calcium Carbonate 500 mg = 200 mg elemental calcium Dose = mg calcium carbonate ( mg elemental calcium) Brian Bonds Albuterol 0.833 MG/ML / Ipratropium Brom enid 0.167 MG/ML Inhalant Solution [DuoNeb] 2015-01-26 03:00:00 No Notes: (S karyn as: Duoneb) Brian Bonds Demeclocycline 2015-01-26 02:00:00 No Notes: (Same As: Declomycin) Brian Bonds Albuterol 0.833 MG/ML / Ipratropium Brom enid 0.167 MG/ML Inhalant Solution [DuoNeb] 2015-01-25 21:00:00 No Notes: (S karyn as: Duoneb) Brian Bonds Sodium Chloride 3% IV 500 mL 2015-01-25 20:32:00 No Notes: "Administer by central venous catheter or a peripherally inserted central catheter (PICC) line. 3% Sodium Chloride may be infused via peripheral administration into large vein (antecubital) only in the case of emergency for short term use until a central line can be inserted" (Same as: Hypertonic Saline 3%) Brian Bonds methylPREDNISolone SODium SUCCinate 2015-01-25 17:00:00 No Notes: (Same as:Solu-MEDROL, A-Methapred) Jojo Bonds tolvaptan 2015-01-25 16:56:00 No Notes: Rangel apurva as: Rangelkurtrachana Bonds Acetaminophen 325 MG / Hydrocodone Bitartrate 5 MG Oral Tabl et [[place] 5/325] 2015-01-25 16:55:00 No Notes: (Same as: [place] 325/5) Do not exceed 4gm/day of acetaminophen. Brian hZang zee methylPREDNISolone SODium SUCCinate 2015-01-25 16:54:00 No Notes: (Same as:Solu-MEDROL, A-Methapred) Jojo Bonds Diovan 2015-01-25 14:00:00 No Notes: Same a zina Phan Brian Bonds tiotropium 0.018 MG/ACTUAT Inhalant Powder [Spiriva] 01-25 14:00:00 No Notes: (Same As: Spiriva) Brian Fryeann Budesonide 0.25 MG/ML Inhalant Solution [Pulmicort] 01-25 14:00:00 No Notes: (Same As: Pulmicort) Brian Fryeann Thyroxine 2015-01-25 14:00:00 No Notes: Take 1 hour before or 2 hours after meal; Enteral feeds may interefere with the absorption of this medication. (Same as:Synthroid, Levothroid) Brian Fryeann Pulmicort Respules 2015-01-25 09:26:00 No Notes: (Same As: Pulmicort) Brian Bonds DuoNeb inhalation solution 2015-01-25 09:24:00 No Notes: (Same as: Duoneb) [facility] Vamshi DuoNeb inhalation solution 2015-01-25 06:30:00 No Notes: (Same as: Duoneb) [facility] Vamshi Pulmicort Respules 2015-01-25 06:30:00 No Notes: (Same As: Pulmicort) Brian Fryeann Acetaminophen 325 MG / Hydrocodone Bitartrate 5 MG Oral Tabl et [[place] 5/325] 2015-01-25 05:00:00 No Notes: (Same as: [place] 325/5) Do not exceed 4gm/day of acetaminophen. [facility] Leatha nn Omnipaque 350 2015-01-25 04:00:00 No Notes: (same as:Omnipaque 350). [facility] meropenem 2015-01-25 04:00:00 No Notes: Same as Merrem MEDICATION WASTE Product Size: 500 mg Product Wasted: ___ mg [facility] cefepime 2015-01-25 03:00:00 No Notes: (Same As: Maxipime) MEDICATION WASTE Product Size: 1000 mg Product Wasted: ___ mg [facility] Levofloxacin 2015-01-25 03:00:00 No 750 mg, Route: IVPB, Drug form: SOLN, [id number], Dosing Weight 51.364, kg, Start date: 01/24/15 22:00:00, Duration: 30 day, Stop date: 02/22/15 22:00:00 [facility] Vancomycin 2015-01-25 03:00:00 No 1 gm, Route: IVPB, Drug form: INJ, [id number], Dosing Weight 51.364, kg, Start date: 01/24/15 22:00:00, Duration: 30 day, Stop date: 02/22/15 22:00:00 [facility] Ondansetron 2015-01-25 02:48:00 No Notes: (Same as: Zofran) MEDICATION WASTE Product Size: 4 mg Product Wasted: ___ mg [facility] Acetaminophen 2015-01-25 02:48:00 No Notes: Do not exceed 4 gm/day. (Same as: Tylenol) [facility] Morphine 2015-01-25 02:48:00 No Not es: (Same as:MORPhine Sulfate) [facility] colistimethate 2015-01-25 02:30:00 No Notes: (Same As: Coly-Mycin) [facility] Enoxaparin 2015-01-25 02:00:00 No Notes: (S karyn as: Lovenox) [facility] Pepcid 2015-01-25 02:00:00 No Notes: (Same as: Pepcid) Can be dilute in 5-10cc NS IVP: Slow IV push over at least 2 minutes. [facility] Zocor 2015-01-25 02:00:00 No Notes: (Same a s: Zocor) [facility] Levaquin 2015-01-25 02:00:00 No Notes: (Rangel e as:Levaquin) Brian Bonds Zofran 2015-01-25 01:31:00 No Notes: (Same as: Calixto) MEDICATION WASTE Product Size: 4 mg Product Wasted: ___ mg Brian Bonds 200 ACTUAT Azelastine hydrochloride 0.137 MG/ACTUAT Nasal In haler [Astelin] 2015-01-25 01:30:00 No Notes: (azelastine 137 microgram/inh 34 ml nasal SPR) Non-formulary drug. Same As: Astelin) Brian Bonds NS 1,000 mL 2015-01-25 01:28:00 No 1,000 mL, Rate: 75 ml/hr, Infuse over: 13.3 hr, Route: IV, Dosing Weight 51.364 kg, Total Volume: 1,000, Start date: 01/24/15 20:28:00, Duration: 30 day, Stop date: 02/23/15 20:27:00 Brian Bonds Sodium Chloride 3% (Hypertonic) IV 180 mL 2015-01-25 01:21:00 No Notes: "Administer by central venous catheter or a peripherally inserted central catheter (PICC) line. 3% Sodium Chloride may be infused via peripheral administration into large vein (antecubital) only in the case of emergency for short term use until a central line can be inserted" (Same as: Hypertonic Saline 3%) Brian Bonds Saline Flush 0.9% 2015-01-24 22:12:00 No Notes: Same as: BD Posiflush Sterile Brian Bonds demeclocycline 300 mg oral tablet 2015-01-19 20:11:00 Yes 300 mg = 1 tab, PO, BID, X 14 day, # 28 tab, 0 Refill(s) Brian Bonds Demeclocycline 2015-01-17 22:00:00 No Notes: (Same As: Declomycin) Brian Bonds NS 1,000 mL 2015-01-17 15:16:00 No 1,000 mL, Rate: 40 ml/hr, Infuse over: 25 hr, Route: IV, Dosing Weight 51.932 kg, Total Volume: 1,000, Start date: 01/17/15 10:16:00, Duration: 30 day, Stop date: 02/16/15 10:15:00 Brian Bonds tiotropium 0.018 MG/ACTUAT Inhalant Powder [Spiriva] 01-17 14:00:00 No Notes: (Same As: Spiriva) Brian Bonds multivitamin 2015-01-17 14:00:00 No Notes: (Same as:One Tab Daily, Tab-A-Nadir + Beta Carotene) Give with food. Brian Bonds 120 ACTUAT Fluticasone propionate 0.05 MG/ACTUAT Nasal Inhal er 2015-01-17 14:00:00 No Notes: (Same as: Flonase) Brian Bonds Advair Diskus 500 mcg-50 mcg inhalation powder 2015-01-17 14:00: 00 No 1 puff, Route: INHALATION, Drug Form: AE RO, Dosing Weight 51.932, kg, BID, Start date: 01/17/15 9:00:00, Duration: 30 day, Stop date: 02/15/15 17:00:00 Brian Bonds Citracal + D 315 mg-250 intl units oral tablet 2015-01-17 14:00: 00 No Notes: (Same As: Citracal Caplets Plus D) Brian Bonds Vitamin C 2015-01-17 14:00:00 No Notes: (Sa me as: Vitamin C) rBian Bonds Thyroxine 2015-01-17 11:30:00 No Notes: Take 1 hour before or 2 hours after meal; Enteral feeds may interefere with the absorption of this medication. (Same as:Synthroid, Levothroid) Brian Bonds Xopenex 2015-01-17 05:00:00 No 0.63 mg, 3 mL, Route: NEB, Drug form: SOLN, Q8H, Dosing Weight 51.932, kg, Start date: 01/17/15 0:00:00, Duration: 30 day, Stop date: 02/15/15 16:00:00 Jojo Bonds Zocor 2015-01-17 02:00:00 No Notes: (Same a s: Zocor) Brian Bonds Acetaminophen 325 MG / Hydrocodone Bitartrate 5 MG Oral Tabl et [[place] 5/325] 2015-01-16 23:30:00 No Notes: (Same as: [place] 325/5) Do not exceed 4gm/day of acetaminophen. Brian Zhang nn albuterol 2015-01-16 23:25:00 No Notes: SEE RT DOCUMENTATION (Same as: Jason); pharmacy re entry of e order-- Brian Bonds Protonix 2015-01-16 23:19:00 No Notes: Tablet should not be chewed or crushed. (Same as: Protonix) Brian Fryeann Ventolin HFA 90 mcg/inh inhalation aerosol with adapter 2015-01-16 23:14:00 No Notes: Albutero l 90 microgram/inh 8gm HFA Same as: Ventolin, Proventil Brian Bonds Prilosec 2015-01-16 23:09:00 No 20 mg, Route: PO, Drug form: DRC, Daily, Dosing Weight 51.932, kg, PRN, Start date: 01/16/15 18:09:00, Duration: 30 day, Stop date: 02/15/15 18:08:00, none Brian Bonds Miralax 2015-01-16 14:00:00 No Notes: Dissolve in 8 oz of water or juice. (Same as: Miralax) Brian Zhang zee Docusate Sodium 100 MG Oral Capsule [Colace] 2015-01-16 14:00:00 No Notes: (Same as: Colace) (Do Not Crush) Brian Vamshi Diovan 2015-01-16 14:00:00 No Notes: Same a s Emilie Brian Bonds Astelin 2015-01-16 14:00:00 No Notes: (azelastine 137 microgram/inh 34 ml nasal SPR) Non-formulary drug. Same As: Astelin) Brian Fryeann Advair Diskus 500 mcg-50 mcg inhalation powder 2015-01-16 14:00: 00 No 1 puff, Route: INHALATION, Dosing Weight 51.364, kg, BID, Start date: 01/16/15 9:00:00, Duration: 30 day, Stop date: 02/14/15 17:00:00 Brian Fryeann budesonide-formoterol 160 mcg-4.5 mcg/inh inhalation aerosol with adapter 2015-01-15 22:42:00 No Notes: (Same as: S ymbicort) Brian Fryeann Acetaminophen 2015-01-15 22:38:00 No Notes: Do not exceed 4 gm/day. (Same as: Tylenol) [facility] Ondansetron 2015-01-15 22:38:00 No 4 mg, Route: IVP, Q8H, Dosing Weight 51.364, kg, PRN Nausea & Vomiting, Start date: 01/15/15 17:38:00, Duration: 30 day, Stop date: 02/14/15 17:37:00 [facility] Saline Flush 0.9% 2015-01-15 22:38:00 No Notes: Same as: BD Posiflush Sterile [facility] NS 1,000 mL 2015-01-15 22:10:00 No 1,000 mL, Rate: 75 ml/hr, Infuse over: 13.3 hr, Route: IV, Dosing Weight 51.364 kg, Total Volume: 1,000, Start date: 01/15/15 17:10:00, Duration: 30 day, Stop date: 02/14/15 17:09:00 [facility] Acetaminophen 325 MG / Hydrocodone Bitartrate 10 MG Or al Tablet [[place] 10/325] 2015-01-15 22:08:00 No Note s: Do not exceed 4gm/day of acetaminophen. (Same as: [place] 325/10) [facility] Lactulose 2015-01-15 22:07:00 No Notes: (Sa me as:Chronulac) [facility] Dulcolax Laxative 2015-01-15 22:06:00 No Notes: (Same As: Dulcolax, Correctol) (Do Not Crush) "Do Not Crush" [facility] Tylenol 2015-01-15 22:06:00 No 100.4 F, Start date: 01/15/15 17:06:00, Duration: 30 day, Stop date: 02/14/15 17:05:00 [facility] Zofran 2015-01-15 22:06:00 No Notes: (Same as: Zofran) MEDICATION WASTE Product Size: 4 mg Product Wasted: ___ mg [facility] Hydralazine 2015-01-15 22:06:00 No Notes: (Same as: Apresoline) Push over 5 minutes [facility] Lovenox 2015-01-15 22:05:00 No Notes: (Same as: Lovenox) [facility] Sodium Chloride 0.154 MEQ/ML Injectable Solution 2015-01-15 21:2 3:00 No 500 mL, 500 ml/hr, Infuse Ov er: 1 hr, Route: IV, ONCE, Priority: STAT, Dosing Weight 51.364 kg, Start date: 01/15/15 16:23:00, Duration: 1 doses or times, Stop date: 01/15/15 16:23:00 [facility] Juice johnson Nasal Saline 0.65% solution 2015-01-04 17:00:00 No Notes: (Same as: [place], Deep Sea Nasal [place]). [facility] Iris owens Dayron Dominguez 2015-01-04 15:49:00 No Notes: (Same As: Dayron Dominguez) "Do Not Crush" [facility] Docus[facility] Sodium 100 MG Oral Capsule [Colace] 2015-01-03 17:00:00 No Notes: (Same as: Colace) (Do Not Crush) [facility] Lactulose 2015-01-03 15:16:00 No Notes: (Sa me as:Chronulac) [facility] Calcium Gluconate 2015-01-02 16:11:00 No 2 gm, 20 mL, Route: IVPB, Drug form: INJ, PRN, Dosing Weight 50.54, kg, PRN Abnormal Lab Result, For NON- ICU Patients Only., Start date: 01/02/15 11:11:00, Duration: 30 day, Stop date: 02/01/15 11:10:00 [facility] Magnesium Sulfate 2015-01-02 16:11:00 No 2 gm, 50 mL, Route: IVPB, Drug form: INJ, PRN, Dosing Weight 50.54, kg, PRN Abnormal Lab Result, For NON- ICU Patients Only., Start date: 01/02/15 11:11:00, Duration: 30 day, Stop date: 02/01/15 11:10:00 [facility] Magnesium Oxide 2015-01-02 16:11:00 No Notes: (Same as: Mag-Ox 400) Magnesium oxide [id number] elemental magnesium Dose=____mg magnesium oxide (___mg elemental magnesium) [facility] potassium phosphate + Sodium Chloride 0.9% IV 250 mL 01-02 16:11:00 No Notes: (Same as: K Phosphate.) 1 mMol phoshate has 1.47 mEq potassium Infuse over 4 hours [facility] sodium phosphate + Sodium Chloride 0.9% IV 250 mL 2015-01-02 16:11:00 No 15 mmol, 5 mL, Route : IVPB, Drug form: INJ, PRN, Dosing Weight 50.54, kg, PRN Abnormal Lab Result, For NON-ICU Patients Only., Start date: 01/02/15 11:11:00, Duration: 30 day, Stop date: 02/01/15 11:10:00 [facility] potassium chloride 2015-01-02 16:11:00 No Notes: Infuse at a rate of 10 mEq/hr. (Same as: KCL) [facility] potassium phosphate-sodium phosphate 250 mg-278 mg-164 mg or al powder 2015-01-02 16:11:00 No Notes: (Same as: Neutra-Phos) Each 1.25 gm pkt has 250mg phosphorous. Mix w/2.5oz water and stir. [facility] Saline Flush 0.9% 2015-01-02 02:00:00 No Notes: Same as: BD Posiflush Sterile [facility] Guaifenesin 2015-01-01 15:21:00 No Notes: ( Same as: Robitussin) [facility] Saline Flush 0.9% 2015-01-01 15:18:00 No Notes: Same as: BD Posiflush Sterile [facility] Sodium Chloride 0.9% IV 1,000 mL 2014-12-31 23:21:00 No 1,000 mL, Rate: 125 ml/hr, Infuse over: 8 hr, Route: IV, Dosing Weight 50.54 kg, Total Volume: 1,000, Start date: 12/31/14 18:21:00, Duration: 30 day, Stop date: 01/30/15 18:20:00 [facility] Megace 2014-12-31 22:00:00 No 400 mg, 10 mL, Route: PO, Drug form: SUSP, BID, Dosing Weight 50.54, kg, Start date: 12/31/14 17:00:00, Duration: 30 day, Stop date: 01/30/15 9:00:00 Eliasoria [facility] sodium chloride 2014-12-31 19:55:00 No Notes: preservative free. [facility] Colistin Nebulization 2014-12-31 19:46:00 No Colistin Nebulization, 100 mg, Route: NEB, RQ12H, 12/31/14 14:46:00, Stop date: 01/30/15 4:00:00 [facility] Protonix 2014-12-31 17:45:00 No Notes: Tablet should not be chewed or crushed. (Same as: Protonix) [facility] Sodium Chloride 0.154 MEQ/ML Injectable Solution 2014-12-31 15:1 9:00 No 1,000 mL, Rate: 60 ml/hr, In fuse over: 16.7 hr, Route: IV, Dosing Weight 50.54 kg, Total Volume: 1,000, Start date: 12/31/14 10:19:00, Duration: 30 day, Stop date: 01/30/15 10:18:00 [facility] elizabeth bricenoptan 2014-12-31 14:00:00 No Notes: Rangel mixon as: Chastity [facility] Diovan 2014-12-31 14:00:00 No Notes: Juarez Phan [facility] tiotropium 0.018 MG/ACTUAT Inhalant Powder [Spiriva] 12-31 14:00:00 No Notes: (Same As: Spiriva) [facility] Sodium Chloride 1000 MG Oral Tablet 2014-12-31 14:00:00 No 1 gm, 1 tab, Route: PO, Drug form: TAB, Daily, Dosing Weight 51.364, kg, Start date: 12/31/14 9:00:00, Duration: 30 day, Stop date: 01/29/15 9:00:00 [facility] Vitamin C 2014-12-31 14:00:00 No Notes: (Sa me as: Vitamin C) [facility] Thyroxine 2014-12-31 11:30:00 No Notes: Take 1 hour before or 2 hours after meal; Enteral feeds may interefere with the absorption of this medication. (Same as:Synthroid, Levothroid) [facility] Compazine 2014-12-31 01:06:00 No Notes: (Sa me as: Compazine) [facility] Advair Diskus 500 mcg-50 mcg inhalation powder 2014-12-30 22:00: 00 No 1 puff, Route: INHALATION, Drug Form: AE RO, Dosing Weight 51.364, kg, BID, Start date: 12/30/14 17:00:00, Duration: 30 day, Stop date: 01/29/15 9:00:00 Brian Bonds budesonide-formoterol 160 mcg-4.5 mcg/inh inhalation aerosol with adapter 2014-12-30 17:05:00 No Notes: (Same as: Zina ymbicort) Brian Bonds Ventolin HFA 90 mcg/inh inhalation aerosol with adapter 2014-12-30 17:03:00 No Notes: Albutero l 90 microgram/inh 8gm HFA Same as: Ventolin, Proventil [facility] Vamshi budesonide-formoterol 160 mcg-4.5 mcg/inh inhalation aerosol with adapter 2014-12-30 17:00:00 No Notes: (Same as: Zina mauricebicort) Brian Bonds 120 ACTUAT Fluticasone propionate 0.05 MG/ACTUAT Nasal Inhal er 2014-12-30 16:57:00 No Notes: (Same as: Flonase) Brian Fryeann 200 ACTUAT Azelastine hydrochloride 0.137 MG/ACTUAT Nasal In haler [Astelin] 2014-12-30 16:56:00 No Notes: (azelastine 137 microgram/inh 34 ml nasal SPR) Non-formulary drug. Same As: Astelin) Brian Bonds Prochlorperazine 2014-12-30 16:54:00 No Notes: (Same as: Compazine) Brian Fryeann Phenergan 2014-12-30 16:54:00 No Notes: (Sa me as: Phenergan) Brian Fryeann Reglan 2014-12-30 15:46:00 No Notes: (Same as: Reglan) Brian Fryeann Sodium Chloride 0.154 MEQ/ML Injectable Solution 2014-12-30 15:4 6:00 No 1,000 mL, Rate: 125 ml/hr, I nfuse over: 8 hr, Route: IV, Dosing Weight 51.364 kg, Total Volume: 1,000, Start date: 12/30/14 10:46:00, Duration: 30 day, Stop date: 01/29/15 10:45:00 Brian Iris lopezjorje Saline Flush 0.9% 2014-12-30 15:46:00 No Notes: Same as: BD Posiflush Sterile [facility] [place] Enoxaparin 2014-12-30 15:00:00 No Notes: (S karyn as: Lovenox) Brian Bonds Advair Diskus 250 mcg-50 mcg inhalation powder 2014-12-30 14:51: 00 No 1 inhalation, Route: INHALER, Drug Form: AERO, Dosing Weight 51.364, kg, RBID, Start date: 12/30/14 9:51:00, Duration: 30 day, Stop date: 01/29/15 8:00:00 Brian Fryeann Hydralazine 2014-12-30 14:47:00 No Notes: (Same as: Apresoline) Push over 5 minutes Brian rFyeann Tylenol 2014-12-30 14:47:00 No Notes: Do not exceed 4 gm/day. (Same as: Tylenol) Brian Fryeann Zofran 2014-12-30 14:47:00 No Notes: (Same as: Calixto) MEDICATION WASTE Product Size: 4 mg Product Wasted: ___ mg [facility] Vamshi Sodium Chloride 0.154 MEQ/ML Injectable Solution 2014-12-30 13:3 9:00 No 1,000 mL, Rate: 125 ml/hr, I nfuse over: 8 hr, Route: IV, Dosing Weight 51.364 kg, Total Volume: 1,000, Start date: 12/30/14 8:39:00, Duration: 30 day, Stop date: 01/29/15 8:38:00 Brian schulte Sodium Chloride 0.154 MEQ/ML Injectable Solution 2014-12-30 12:0 6:00 No 1,000 mL, 1000 ml/hr, Infuse Over: 1 hr, Route: IV, 1,000, Drug form: INJ, ONCE, Priority: STAT, Dosing Weight 51.364 kg, Start date: 12/30/14 7:06:00, Duration: 1 doses or times, Stop date: 12/30/14 7:06:00 Brian Bonds Zofran 2014-12-30 12:06:00 No Notes: (Same as: Calixto) MEDICATION WASTE Product Size: 4 mg Product Wasted: 0___ mg Brian Bonds Amoxicillin 875 MG / Clavulanate 125 MG Oral Tablet [Augment in 875-mg] 2014-12-25 16:08:00 Yes 875 mg = 1 tab, PO, Q12H, # 14 tab, 0 Refill(s) [facility] Levofloxacin 750 MG Oral Tablet [Levaquin] 2014-12-25 16:08:00 Yes 750 mg = 1 tab, PO, Q24H, # 7 tab, 0 Refill(s) [facility] Dulcolax Laxative 2014-12-24 15:55:00 No Notes: (Same As: Dulcolax, Correctol) (Do Not Crush) "Do Not Crush" [facility] Miralax 2014-12-24 15:55:00 No Notes: Dissolve in 8 oz of water or juice. (Same as: Miralax) [facility] nn Vancomycin 2014-12-24 15:00:00 No 2001 mg: infuse over 2.5 hours MEDICATION WASTE Product Size: 1000 mg Product Wasted: ___ mg [facility] Levaquin 2014-12-24 03:00:00 No Notes: (Rangel e as:Levaquin) [facility] Vancomycin 2014-12-24 03:00:00 No 1 gm, 200 mL, Route: IVPB, Drug form: INJ, [id number], Dosing Weight 51.364, kg, Start date: 12/23/14 22:00:00, Duration: 1 doses or times, Stop date: 12/23/14 22:00:00 [facility] Hydralazine 2014-12-23 20:00:00 No Notes: (Same as: Apresoline) Push over 5 minutes [facility] Osteo Bi-Flex 2014-12-22 14:00:00 No 1 tab, Route: PO, Dosing Weight 51.364, kg, Daily, Start date: 12/22/14 9:00:00, Duration: 30 day, Stop date: 01/20/15 9:00:00 [facility] lactobacillus rhamnosus GG 2014-12-22 14:00:00 No Notes: Same as Jennifer [facility] Diovan 2014-12-22 14:00:00 No Notes: Same a zina Torres [place] tiotropium 0.018 MG/ACTUAT Inhalant Powder [Spiriva] 12-22 14:00:00 No Notes: (Same As: Spiriva) [facility] lactobacillus acidophilus 2014-12-22 14:00:00 No 1 cap, Route: PO, Drug Form: CAP, Dosing Weight 51.364, kg, Daily, Start date: 12/22/14 9:00:00, Duration: 30 day, Stop date: 01/20/15 9:00:00 Brian Bonds omega-3 polyunsaturated fatty acids 2014-12-22 14:00:00 No Notes: (Same as: MaxEPA, [place] 3 fish oil ) Non-Formulary Drug [facility] [place] multivitamin 2014-12-22 14:00:00 No Notes: (Same as:One Tab Daily, Tab-A-Nadir + Beta Carotene) Give with food. [facility] Vamshi Protonix 2014-12-22 12:30:00 No Notes: Tablet should not be chewed or crushed. (Same as: Protonix) Brian Bonds Thyroxine 2014-12-22 11:30:00 No Notes: Take 1 hour before or 2 hours after meal; Enteral feeds may interefere with the absorption of this medication. (Same as:Synthroid, Levothroid) Brian [place] budesonide-formoterol 160 mcg-4.5 mcg/inh inhalation aerosol with adapter 2014-12-22 02:00:00 No Notes: (Same as: S ymbicort) [facility] Simvastatin 2014-12-22 02:00:00 No Notes: ( Same as: Zocor) [facility] TamiFLU 2014-12-22 01:00:00 No Notes: Take with food. Same as: Tamiflu) Brian [place] Advair Diskus 500 mcg-50 mcg inhalation powder 2014-12-21 22:00: 00 No 1 puff, Route: INHALATION, Drug Form: AE RO, Dosing Weight 51.364, kg, BID, Start date: 12/21/14 17:00:00, Duration: 30 day, Stop date: 01/20/15 9:00:00 Brian [place] Enoxaparin 2014-12-21 22:00:00 No Notes: (S karyn as: Lovenox) Brian [place] Vitamin C 2014-12-21 21:00:00 No Notes: (Sa me as: Vitamin C) Brian Bonds Citracal + D 315 mg-250 intl units oral tablet 2014-12-21 21:00: 00 No Notes: (Same As: Citracal Caplets Plus D) Brian Bonds Ventolin HFA 90 mcg/inh inhalation aerosol with adapter 2014-12-21 20:34:00 No Notes: Albutero l 90 microgram/inh 8gm HFA Same as: Jason Arzate Acetaminophen 325 MG / Hydrocodone Bitartrate 5 MG Oral Tabl et [[place] 5/325] 2014-12-21 20:31:00 No Notes: (Same as: [place] 325/5) Do not exceed 4gm/day of acetaminophen. [facility] Le[place] nn ibandronic acid 150 MG Oral Tablet [Boniva] 2014-12-21 20:07:00 No 150 mg, 1 tab, Route: PO, Drug form: TAB, ONCE, Dosing Weight 51.364, kg, Start date: 12/21/14 15:07:00, Stop date: 12/21/14 15:07:00 [facility] [place] Xopenex 2014-12-21 20:00:00 No Notes: SEE RT DOCUMENTATION (Same as:Xopenex) Non-Formulary [facility] Le[place] nn 120 ACTUAT Fluticasone propionate 0.05 MG/ACTUAT Nasal Inhal er 2014-12-21 20:00:00 No Notes: (Same as: Flonase) [facility] Vamshi 200 ACTUAT Azelastine hydrochloride 0.137 MG/ACTUAT Nasal In haler [Astelin] 2014-12-21 19:57:00 No Notes: (azelastine 137 microgram/inh 34 ml nasal SPR) Non-formulary drug. Same As: Astelin) [facility] [place] Advair Diskus 500 mcg-50 mcg inhalation powder 2014-12-21 13:17: 00 Yes 1 puff, INHALATION, BID, # 28 ea, 0 Refill(s) [facility] Tamiflu 2014-12-21 13:00:00 No 60 ml/hr, Start date: 12/21/14 8:00:00, Duration: 5 day, Stop date: 12/25/14 20:00:00 [facility] Saline Flush 0.9% 2014-12-21 13:00:00 No Notes: Same as: BD Posiflush Sterile [facility] Tamiflu 2014-12-21 12:35:00 No 60 ml/hr, Start date: 12/21/14 7:35:00, Stop date: 12/21/14 7:35:00 Mem orial Vamshi cefepime 2014-12-21 11:08:00 No Notes: (Same As: Maxipime) MEDICATION WASTE Product Size: 1000 mg Product Wasted: ___ mg [facility] Vamshi Sodium Chloride 0.154 MEQ/ML Injectable Solution 2014-12-21 11:0 8:00 No 1,000 mL, Rate: 125 ml/hr, I nfuse over: 8 hr, Route: IV, Dosing Weight 51.364 kg, Total Volume: 1,000, Start date: 12/21/14 6:08:00, Duration: 30 day, Stop date: 01/20/15 6:07:00 [facility] schulte Saline Flush 0.9% 2014-12-21 11:08:00 No Notes: Same as: BD Posiflush Sterile [facility] Morphine 2014-12-21 11:08:00 No Not es: (Same as:MORPhine Sulfate) [facility] Ondansetron 2014-12-21 11:08:00 No Notes: (Same as: Zofran) MEDICATION WASTE Product Size: 4 mg Product Wasted: ___ mg [facility] Acetaminophen 2014-12-21 11:08:00 No Notes: Do not exceed 4 gm/day. (Same as: Tylenol) [facility] cefepime 2014-12-21 08:14:00 No Notes: (Same as: Maxipime) MEDICATION WASTE Product Size: 2000 mg Product Wasted: ___ mg [facility] Sodium Chloride 0.154 MEQ/ML Injectable Solution 2014-12-21 08:1 2:00 No 1,000 mL, 1000 ml/hr, Infuse Over: 1 hr, Route: IV, 1,000, Drug form: INJ, ONCE, Priority: STAT, Dosing Weight 51.364 kg, Start date: 12/21/14 3:12:00, Duration: 1 doses or times, Stop date: 12/21/14 3:12:00 [facility] Tylenol 2014-12-21 07:53:00 No Notes: Do not exceed 4 gm/day. (Same as: Tylenol) [facility] Morphine 2014-12-21 07:53:00 No Not es: (Same as:MORPhine Sulfate) [facility] Zofran 2014-12-21 07:52:00 No Notes: (Same as: Zofran) MEDICATION WASTE Product Size: 4 mg Product Wasted: ___ mg Brian Bonds tiotropium 0.018 MG/ACTUAT Inhalant Powder [Spiriva] 11-27 14:00:00 No Notes: (Same As: Spiriva) Brian Bonds Thyroxine 2014-11-27 14:00:00 No Notes: Take 1 hour before or 2 hours after meal; Enteral feeds may interefere with the absorption of this medication. (Same as:Synthroid, Levothroid) Brian Bonds Zocor 2014-11-27 02:00:00 No Notes: (Same a s: Zocor) Brian Bonds Acetaminophen 325 MG / Hydrocodone Bitartrate 5 MG Oral Tabl et [[place] 5/325] 2014-11-26 23:00:00 No Notes: (Same as: [place] 325/5) Do not exceed 4gm/day of acetaminophen. Brian Zhang nn Advair Diskus 500 mcg-50 mcg inhalation powder 2014-11-26 22:00: 00 No 1 puff, Route: INHALATION, Drug Form: AE RO, Dosing Weight 47.727, kg, BID, Start date: 11/26/14 17:00:00, Duration: 30 day, Stop date: 12/26/14 9:00:00 Brian Bonsd budesonide-formoterol 160 mcg-4.5 mcg/inh inhalation aerosol with adapter 2014-11-26 20:51:00 No Notes: (Same as: S ymbicort) Brian Bonds Clonidine Hydrochloride 0.1 MG Oral Tablet 2014-11-26 20:48:00 No Notes: (Same As: Catapres) Brian recinos Albuterol 0.833 MG/ML / Ipratropium Brom enid 0.167 MG/ML Inhalant Solution [DuoNeb] 2014-11-26 20:46:00 No Notes: (S karyn as: Duoneb) Brian Bonds Ondansetron 4 MG Oral Tablet [Zofran] 2014-11-26 02:57:00 Y es PO, PRN, 0 Refill(s) Brian Bonds Calcium Gluconate 2014-11-26 01:54:00 No 3 gm, 30 mL, Route: IVPB, PRN, Dosing Weight 47.727, kg, PRN Abnormal Lab Result, For NON-ICU Patients Only., Start date: 11/25/14 20:54:00, Duration: 30 day, Stop date: 12/25/14 20:53:00 [facility] Magnesium Oxide 2014-11-26 01:54:00 No Notes: (Same as: Mag-Ox 400) Magnesium oxide [id number] elemental magnesium Dose=____mg magnesium oxide (___mg elemental magnesium) [facility] Magnesium Sulfate 2014-11-26 01:54:00 No 1 gm, 100 mL, Route: IVPB, Drug form: INJ, PRN, Dosing Weight 47.727, kg, PRN Abnormal Lab Result, For NON- ICU Patients Only., Start date: 11/25/14 20:54:00, Duration: 30 day, Stop date: 12/25/14 20:53:00 [facility] sodium phosphate + Sodium Chloride 0.9% IV 250 mL 2014-11-26 01:54:00 No 30 mmol, 10 mL, Rout e: IVPB, PRN, Dosing Weight 47.727, kg, PRN Abnormal Lab Result, For NON-ICU Patients Only., Start date: 11/25/14 20:54:00, Duration: 30 day, Stop date: 12/25/14 20:53:00 [facility] potassium phosphate + Sodium Chloride 0.9% IV 250 mL 11-26 01:54:00 No Notes: (Same as: K Phosphate.) 1 mMol phoshate has 1.47 mEq potassium Infuse over 4 hours [facility] potassium chloride 2014-11-26 01:54:00 No Notes: Infuse at a rate of 10 mEq/hr. (Same as: KCL) [facility] potassium phosphate-sodium phosphate 250 mg-278 mg-164 mg or al powder 2014-11-26 01:54:00 No Notes: (Same as: Neutra-Phos) Each 1.25 gm pkt has 250mg phosphorous. Mix w/2.5oz water and stir. [facility] Protonix 2014-11-25 23:57:00 No Notes: For IV push reconstitute with 10 ml 0.9% sodium chloride and push over 2 minutes. (Same as: Protonix) [facility] Ondansetron 2014-11-25 23:45:00 No Notes: ( Same as: Zofran) [facility] Acetaminophen 2014-11-25 23:45:00 No Notes: Do not exceed 4 gm/day. (Same as: Tylenol) [facility] Sodium Chloride 0.154 MEQ/ML Injectable Solution 2014-11-25 23:4 5:00 No 1,000 mL, Rate: 125 ml/hr, I nfuse over: 8 hr, Route: IV, Dosing Weight 47.727 kg, Total Volume: 1,000, Start date: 11/25/14 18:45:00, Duration: 30 day, Stop date: 12/25/14 18:44:00 [facility] ermann Saline Flush 0.9% 2014-11-25 23:45:00 No Notes: Same as: BD Posiflush Sterile [facility] NS 1000 mL 2014-11-25 23:44:00 No 1,000 mL, Rate: 150 ml/hr, Infuse over: 6.7 hr, Route: IV, Dosing Weight 47.727 kg, Total Volume: 1,000, Start date: 11/25/14 18:44:00, Duration: 30 day, Stop date: 12/25/14 18:43:00 [facility] Saline Flush 0.9% 2014-11-25 20:34:00 No Notes: Same as: BD Posiflush Sterile [facility] Sodium Chloride 0.154 MEQ/ML Injectable Solution 2014-11-25 20:3 4:00 No 1,000 mL, Infuse Over: 1 hr, Route: IV, ONCE, Priority: STAT, Dosing Weight 47.727 kg, Start date: 11/25/14 15:34:00, Duration: 1 doses or times, Stop date: 11/25/14 15:34:00 [facility] Protonix 2014-08-14 22:30:00 No Notes: Tablet should not be chewed or crushed. (Same as: Protonix) [facility] 1,000 mL 2014-08-14 22:02:00 No 1,000 mL, Rate: 50 ml/hr, Infuse over: 20 hr, Route: IV, Dosing Weight 54.2 kg, Total Volume: 1,000, Start date: 08/14/14 16:02:00, Stop date: 09/12/14 18:12:00 [facility] lactobacillus rhamnosus GG 2014-08-14 15:00:00 No Notes: Same as Culturelle [facility] Synthroid 2014-08-14 15:00:00 No Notes: Take 1 hour before or 2 hours after meal; Enteral feeds may interefere with the absorption of this medication. (Same as:Synthroid, Levothroid) [facility] Lactobacillus Sporogenes 2014-08-14 15:00:00 No 1 tab, Route: PO, Drug Form: CAP, Dosing Weight 49.716, kg, Daily, Start date: 08/14/14 9:00:00, Duration: 30 day, Stop date: 09/12/14 9:00:00 [facility] budesonide-formoterol 160 mcg-4.5 mcg/inh inhalation aerosol with adapter 2014-08-14 15:00:00 No Notes: (Same as: S ymbicort) [facility] Fluticasone propionate 0.5 MG/ACTUAT / s almeterol 0.05 MG/ACTUAT Dry Powder Inhaler [Advair 500/50] 2014-08-14 15:00:00 No 1 puff, Route: INHALATION, Drug Form: AERO, Dosing Weight 49.716, kg, BID, Start date: 08/14/14 9:00:00, Duration: 30 day, Stop date: 09/12/14 17:00:00 Biran [facility] tiotropium 0.018 MG/ACTUAT Inhalant Powder [Spiriva] 08-14 15:00:00 No Notes: (Same As: Spiriva) [facility] Zocor 2014-08-14 03:00:00 No Notes: (Same a s: Zocor) [facility] acetaminophen-hydrocodone 325 mg-5 mg oral tablet 2014-08-14 02:52:00 No Notes: (Same as: [place] 325/5) Do not exceed 4g m/day of acetaminophen. [facility] valsartan 40 MG Oral Tablet [Diovan] 2014-08-14 01:47:00 Ye s 40 mg = 1 tab, PO, BID, # 180 tab, 0 Refill(s) [facility] ibandronic acid 150 MG Oral Tablet [Boniva] 2014-08-14 01:46:00 Yes 150 mg = 1 tab, PO, qMonth, # 1 tab, 0 Refill(s) Brian Bonds 120 ACTUAT Fluticasone propionate 0.11 MG/ACTUAT Meter ed Dose Inhaler [Flovent] 2014-08-14 01:44:00 Yes 2 pu ff, INHALATION, BID, # 12 gm, 0 Refill(s) Brian Bonds 120 ACTUAT Fluticasone propionate 0.05 MG/ACTUAT Nasal Inhal er [Flonase] 2014-08-14 01:42:00 Yes 1 spray, PORSCHE AL, Daily, # 16 gm, 0 Refill(s) Brian Fryeann Enoxaparin 2014-08-14 01:00:00 No Notes: (S karyn as: Lovenox) [facility] Mucinex 2014-08-14 00:34:00 No Notes: (Same as: Guaifenesin LA, Humibid LA, Mucinex) "Do Not Crush" Take medication with plenty of water. [facility] Hydralazine 2014-08-14 00:28:00 No Notes: (Same as: Apresoline) Push over 5 minutes [facility] Xopenex 2014-08-14 00:22:00 No Notes: SEE RT DOCUMENTATION (Same as:Xopenex) Non-Formulary Brian Fryea nn NS 1,000 mL 2014-08-14 00:14:00 No 1,000 mL, Rate: 75 ml/hr, Infuse over: 13.3 hr, Route: IV, Dosing Weight 49.716 kg, Total Volume: 1,000, Start date: 08/13/14 18:14:00, Duration: 30 day, Stop date: 09/12/14 18:13:00 [facility] Sodium Chloride 3% (Hypertonic) IV 180 mL 2014-08-14 00:13:00 No Notes: "Administer by central venous catheter or a peripherally inserted central catheter (PICC) line. 3% Sodium Chloride may be infused via peripheral administration into large vein (antecubital) only in the case of emergency for short term use until a central line can be inserted" (Same as: Hypertonic Saline 3%) Brian Bonds Sodium Chloride 0.154 MEQ/ML Injectable Solution 2014-08-13 22:5 6:00 No 1,000 mL, 1000 ml/hr, Infuse Over: 1 hr, Route: IV, 1,000, Drug form: INJ, ONCE, Priority: STAT, Dosing Weight 49.716 kg, Start date: 08/13/14 16:56:00, Duration: 1 doses or times, Stop date: 08/13/14 16:56:00 [facility] Saline Flush 0.9% 2014-08-13 20:55:00 No Notes: Same as: BD Posiflush Sterile [facility] Augmentin 2014-07-20 00:00:00 Yes AGUILAR HARGROVE 1 tab(s) [facility] prednisone 2014-07-20 00:00:00 Yes AGUILAR HARGROVE 2 tabs [facility] prednisone 2014-07-20 00:00:00 Yes TALI MAZARIEGOS 2 tabs [facility] Augmentin 2014-07-20 00:00:00 Yes TALI MAZARIEGOS 1 tab(s) [facility] Levaquin 2014-06-14 00:00:00 Yes TALI MAZARIEGOS 1 tab(s) [facility] Levaquin 2014-06-14 00:00:00 Yes TALI MORFINAR 1 tab(s) [facility] Duexis 2014-05-24 02:13:54 Yes TALI MAZARIEGOS 1 tab(s) [facility] Calcium 600+D 2014-05-24 02:13:54 Yes TALI MAZARIEGOS 1 tab(s) [facility] Xopenex 2014-05-24 02:13:54 Yes TALI MAZARIEGOS 3 ml [facility] omega-3 polyunsaturated fatty acids 2014-05-24 02:13:54 Yes TALI MAZARIEGOS 2 cap(s) [facility] ermann Spiriva 2014-05-24 02:13:54 Yes TLAI MAZARIEGOS inhale one via handihaler one time daily [facility] Leatha nn Diovan 2014-05-24 02:13:54 Yes TALI MAZARIEGOS 1 tab(s) [facility] Zocor 2014-05-24 02:13:54 Yes HARMMARY LOU MAZARIEGOS 1 tab(s) [facility] Linda-C 2014-05-24 02:13:54 Yes TALI MAZARIEGOS 1 tab(s) [facility] Hydrocodone-Acetaminophen 5-325 MG Oral Tablet Hydroco done-Acetaminophen 5-325 MG Oral Tablet 2014-05-17 00:00:00 Yes SHANAE Jeronimo 1 TAKE 1 TABLET EVERY 6 HOURS NEEDED FOR PAIN. [facility] Duexis 800-26.6 MG Oral Tablet Duexis 800-26.6 MG Oral Table t 2014-05-17 00:00:00 Yes SHANAE Zaidi.Alberto 1 Q0.3333D TAKE 1 TA BLET 3 TIMES DAILY [facility] ibandronate 2014-03-13 00:00:00 Yes HARMOHINDER KOCHAR 1 tab(s) [facility] ibandronate 2014-03-13 00:00:00 Yes HARMOHINDER KOCHAR 1 tab(s) [facility] levothyroxine 2014-03-12 00:00:00 Yes HARMOHINDER KOCHAR 1 tab(s) [facility] Astelin 2014-02-08 00:00:00 Yes HARMOHINDER KOCHAR 2 spray(s) [facility] Astelin 2014-02-08 00:00:00 Yes HARMOHINDER KOCHAR 2 spray(s) [facility] ibandronate 2013-10-16 00:00:00 Yes HARMOHINDER KOCHAR 1 tab(s) [facility] Ventolin HFA 2013-10-12 00:00:00 Yes HARMOHINDER KOCHAR 2 puff(s) [facility] Ventolin HFA 2013-10-12 00:00:00 Yes HARMOHINDER KOCHAR 2 puff(s) [facility] levothyroxine 2013-10-02 00:00:00 Yes HARMOHINDER KOCHAR 1 tab(s) [facility] Augmentin 2013-08-17 00:00:00 Yes HARMOHINDER KOCHAR 1 tab(s) [facility] Mucinex 2013-08-03 00:00:00 Yes HARMOHINDER KOCHAR 1 tab(s) [facility] Mucinex 2013-08-03 00:00:00 Yes HARMOHINDER KOCHAR 1 tab(s) [facility] Levaquin 2013-08-03 00:00:00 Yes HARMOHINDER KOCHAR 1 tab(s) Brian Bonds Advair Diskus 250-50 MCG/DOSE Inhalation Aerosol Powder Gaurang th Activated 2013-07-28 17:48:18 Yes (Active) Brian Bonds Zocor 20 MG Oral Tablet 2013-07-28 17:48:18 Yes (Active) [facility] Boniva 150 MG Oral Tablet 2013-07-28 17:48:18 Yes (Active) [facility] Mobic 15 MG Oral Tablet 2013-07-28 17:48:18 Yes (Active) [facility] ibandronate 2013-07-20 00:00:00 Yes HARMOHINDER KOCHAR 1 tab(s) [facility] fluticasone nasal 2013-07-18 00:00:00 Yes HARMOHINDER KO TWAN 1 spray(s) [facility] fluticasone nasal 2013-07-18 00:00:00 Yes HARMOHINDER KO TWAN 1 spray(s) [facility] levothyroxine 2013-06-30 00:00:00 Yes HARMOHINDER KOCHAR 1 tab(s) [facility] levothyroxine 2013-05-26 00:00:00 Yes HARMOHINDER KOCHAR 1 tab(s) [facility] guaifenesin 2013-04-28 00:00:00 Yes HARMOHINDER KOCHAR 1 tab(s) [facility] Avelox 2013-04-28 00:00:00 Yes HARMOHINDER KOCHAR 1 tab(s) [facility] guaifenesin 2013-04-28 00:00:00 Yes HARMOHINDER KOCHAR 1 tab(s) [facility] Avelox 2013-04-28 00:00:00 Yes HARMOHINDER KOCHAR 1 tab(s) [facility] Avelox 2013-04-28 00:00:00 Yes HARMOHINDER KOCHAR 1 tab(s) [facility] guaifenesin 2013-04-28 00:00:00 Yes HARMOHINDER KOCHAR 1 tab(s) [facility] Boniva 2013-04-03 00:00:00 Yes HARMOHINDER KOCHAR 1 tab(s) [facility] simvastatin 2013-04-03 00:00:00 Yes HARMOHINDER KOCHAR 1 tab(s) [facility] simvastatin 2013-04-03 00:00:00 Yes HARMOHINDER KOCHAR 1 tab(s) [facility] Boniva 2013-04-03 00:00:00 Yes HARMOHINDER KOCHAR 1 tab(s) [facility] Boniva 2013-04-03 00:00:00 Yes HARMOHINDER KOCHAR 1 tab(s) [facility] simvastatin 2013-04-03 00:00:00 Yes HARMOHINDER KOCHAR 1 tab(s) [facility] Hydrocodone-Acetaminophen 5-325 MG Oral Tablet 2013-03-31 05:00: 00 Yes ; Start Date: 03/31/2013 (Active) [facility] Hydrocodone-Acetaminophen 5-325 MG Oral Tablet Hydroco done-Acetaminophen 5-325 MG Oral Tablet 2013-03-31 00:00:00 Yes SHANAE Zaidi.Alberto TAKE 1 TABLET EVERY 6 HOURS NEEDED. [facility] meclizine 25 mg oral tablet 2013-02-24 20:42:45 Yes Yovany Licea 25 mg, PO, Q6H, PRN, 30 tab, Dizziness, Substitution Allowed [facility] Tylenol 2013-02-24 20:07:00 No Felice Robles 650 mg, Route: PO, ONCE, Dosing Weight 57.273, kg, Priority: STAT, Start date: 02/24/13 15:07:00, Stop date: 02/24/13 [facility]:07[facility] 2013-02-24 17:17:00 No Sanket Licea 5 ml, Route: IVP, Drug Form: INJ, Dosing Weight 57.273, kg, PRN, PRN Line Flush, Start date: 02/24/13 12:17:00, Duration: 30 day, Stop date: 03/26/13 12:16:00 [facility] omeprazole 2013-01-24 00:00:00 Yes TALI MAZARIEGOS 1 cap(s) [facility] Astelin 2013-01-06 00:00:00 Yes TALI MORFINAR 2 spray(s) [facility] Advair Diskus 2013-01-06 00:00:00 Yes HARMOHINDER KOCHAR use one inhalation twice daily [facility] Advair Diskus 2013-01-06 00:00:00 Yes HARMOHINDER KOCHAR use one inhalation twice daily [facility] Ventolin HFA 2013-01-06 00:00:00 Yes TALI MORFINAR 2 puff(s) [facility] Astelin 2013-01-06 00:00:00 Yes HARMOHINDER SHELBIEAR 2 spray(s) [facility] Astelin 2013-01-06 00:00:00 Yes HARMOHINDER SHELBIEAR 2 spray(s) [facility] Advair Diskus 2013-01-06 00:00:00 Yes TALI MAZARIEGOS use one inhalation twice daily [facility] fluticasone nasal 2012-09-26 00:00:00 Yes MAXIMEMARY LOU LAURY TRENT 1 spray(s) [facility] Duexis 800-26.6 MG Oral Tablet 2012 06:00:00 Yes ; Start Date: 2012 (Active) [facility] Duexis 800-26.6 MG Oral Tablet Duexis 800-26.6 MG Oral Table t 2012 00:00:00 Yes SHANAE Jeronimo 1 Q0.3333D TAKE 1 TA BLET 3 TIMES DAILY [facility] Saline Mist 2012-06-23 00:00:00 Yes TALI MAZARIEGOS 2 spray(s) [facility] Saline Mist 2012-06-23 00:00:00 Yes MAXIMEMARY LOU DELILAH 2 spray(s) [facility] Saline Mist 2012-06-23 00:00:00 Yes MAXIMERICRISSY MAZARIEGOS 2 spray(s) [facility] Prilosec 2012-04-16 14:00:00 No Sorin Pinto Ma rtinez 20 mg, Route: PO, Drug form: DRC, Daily, Start date: 04/16/12 9:00:00, Duration: 30 day, Stop date: 05/15/12 9:00:00 Felix Bonds Synthroid 2012-04-16 12:30:00 No Sorin Pinto M artinez 75 microgram, 1 tab, Route: PO, Drug form: TAB, Before Breakfast, Start date: 04/16/12 7:30:00, Duration: 30 day, Stop date: 05/15/12 7:30:00 [facility] cefazolin (SCIP) + Sodium Chloride 0.9% IV 100 mL 05:00:00 No Sorin Blair Jacobo 1 gm, Route: IVPB, Q8H, Start date: 04/16/12 0:00:00, Duration: 2 doses or times, Stop date: 04/16/12 8:00:00 [facility] Detrol LA 2012-04-16 01:00:00 No Vamsi Crowley 4 mg, 1 cap, Route: PO, Drug form: CAP, Daily, Start date: 04/15/12 20:00:00, Duration: 30 day, Stop date: 05/14/12 20:00:00 [facility] belladonna-opium 16.2 mg-30 mg rectal suppository 23:23:00 No Vamsi Carline 1 supp, Route: P R, Drug Form: SUPP, Q12H, PRN Pain, Start date: 04/15/12 18:23:00, Duration: 30 day, Stop date: 05/15/12 18:22:00 [facility] meperidine 2012-04-15 23:00:00 No Rob Serna Cr ouse 50 mg, 1 mL, Route: IVP, Drug form: INJ, Q4H, PRN Breakthrough Pain, Start date: 04/15/12 18:00:00, Duration: 4 day, Stop date: 04/19/12 17:59:00 [facility] ketorolac 2012-04-15 23:00:00 No Melvin Garcia artinez 15 mg, 0.5 mL, Route: IM, Drug form: INJ, Q6H, Start date: 04/15/12 18:00:00, Duration: 4 day, Stop date: 04/19/12 12:00[facility] 2012-04-15 22:58:00 No Rob Serna Cr ouse 25 mg, 1 mL, Route: IVP, Drug form: INJ, Q4H, PRN Breakthrough Pain, Start date: 04/15/12 17:58:00, Duration: 4 day, Stop date: 04/19/12 17:57:00 [facility] Zofran 2012-04-15 22:56:00 No Rob Serna Elisha 4 mg, 2 mL, Route: IVP, Drug form: INJ, Q4H, PRN Nausea, Start date: 04/15/12 17:56:00, Duration: 30 day, Stop date: 05/15/12 17:55:00 [facility] Advair Diskus 500 mcg-50 mcg inhalation powder 2012-04-15 22:00:00 No Melvin Jacobo 1 inhal ation, Route: INHALATION, Drug Form: AERO, BID, Start date: 04/15/12 17:00:00, Duration: 30 day, Stop date: 05/15/12 9:00:00 [facility] Protonix 2012-04-15 21:30:00 No Josette Delacruz 40 mg, 1 tab, Route: PO, Drug form: ECTAB, Before Dinner, Start date: 04/15/12 16:30:00, Duration: 30 day, Stop date: 05/14/12 16:30:00 [facility] cefazolin + Sodium Chloride 0.9% IV 100 mL 2012-04-15 21:0 0:00 No Melvin Jacobo 1 gm, R oute: IVPB, ONCE, Start date: 04/15/12 16:00:00, Stop date: 04/15/12 16:00:00 M emorikeaton [facility] dexamethasone 2012-04-15 17:00:00 No Josette Delacruz 4 mg, Route: IVP, Q6H, Start date: 04/15/12 12:00:00, Duration: 30 day, Stop date: 05/15/12 6:00:00 [facility] Restoril 2012-04-15 16:22:00 No Rob Myersnkechi Iqra se 15 mg, 1 cap, Route: PO, Drug form: CAP, Bedtime, PRN Sleep, Start date: 04/15/12 11:22:00, Duration: 30 day, Stop date: 05/15/12 11:21:00 [facility] naloxone 2012-04-15 16:12:00 No Josette Delacruz 0.04 mg, 0.1 mL, Route: IVP, Drug form: INJ, Q2MIN, PRN Narcotic Reversal, Start date: 04/15/12 11:12:00, Duration: 8 doses or times, Stop date: 04/15/12 19:00:00 [facility] ondansetron 2012-04-15 16:12:00 No Josette Delacruz 4 mg, 2 mL, Route: IVP, Drug form: INJ, ONCE, PRN Nausea & Vomiting, Start date: 04/15/12 11:12:00 [facility] hydrALAZINE 2012-04-15 16:12:00 No Josette Delacruz 5 mg, 0.25 mL, Route: IVP, Drug form: INJ, Q5Min, PRN Elevated BP, Start date: 04/15/12 11:12:00, Duration: 4 doses or times, Stop date: Limited # of times [facility] flumazenil 2012-04-15 16:12:00 No Josette Delacruz 0.2 mg, 2 mL, Route: IVP, Drug form: INJ, PRN, PRN Benzodiazepine Reversal, Initial dose, Start date: 04/15/12 11:12:00, Stop date: 04/15/12 19:00:00 [facility] Benadryl 2012-04-15 16:08:00 No Josette Delacruz 25 mg, 0.5 mL, Route: IVP, Drug form: INJ, ONCE, PRN Itching, Start date: 04/15/12 11:08:00 [facility] Phenergan 2012-04-15 16:06:00 No Josette Delacruz 12.5 mg, 0.5 mL, Route: IM, Drug form: INJ, Q4H, PRN Nausea & Vomiting, Start date: 04/15/12 11:06:00, Duration: 30 day, Stop date: 05/15/12 11:05:00 [facility] azelastine nasal 0.1% (137 mcg/inh) spray 2012-04-15 16:02 :00 No Melvin Jacobo 1 inhalation, Route: NASAL, Drug Form: SPRY, BID, PRN as needed for allergy symptoms, Start date: 04/15/12 11:02:00, Duration: 30 day, Stop date: 05/15/12 11:01:00 [facility] Ventolin HFA 90 mcg/inh inhalation aerosol with adapter 2012-04-15 16:02:00 No Melvin Jacobo 2 inhalation, Route: INHALATION, Drug Form: AERO/A, QID, PRN as needed for wheezing, Start date: 04/15/12 11:02:00, Duration: 30 day, Stop date: 05/15/12 11:01:00 [facility] promethazine 2012-04-15 16:00:00 No Melvin Jacobo 12.5 mg, 0.5 mL, Route: IM, Drug form: INJ, Q4H, PRN Nausea & Vomiting, Start date: 04/15/12 11:00:00, Duration: 30 day, Stop date: 05/15/12 10:59:00 [facility] docusate 2012-04-15 16:00:00 No Melvin Pinto Ma rtinez 100 mg, 1 cap, Route: PO, Drug form: CAP, BID, PRN Constipation, Start date: 04/15/12 11:00:00, Duration: 30 day, Stop date: 05/15/12 10:59:00 [facility] zolpidem 2012-04-15 16:00:00 No Melvin Pinto Ma rtinez 5 mg, Route: PO, Drug form: TAB, Bedtime, PRN Insomnia, Start date: 04/15/12 11:00:00, Duration: 30 day, Stop date: 05/15/12 10:59:00 [facility] Dextrose 5% in Lactated Ringers IV 1,000 mL 2012-04-15 16: 00:00 No Melvin Jacobo 1,000 m L, Rate: 125 ml/hr, Infuse over: 8 hr, Route: IV, Dosing Weight 56.364 kg, Total Volume: 1,000, Start date: 04/15/12 11:00:00, Duration: 30 day, Stop date: 05/15/12 10:59:00 [facility] acetaminophen-codeine #3 2012-04-15 16:00:00 Toña Jacobo 1 tab, Route: PO , Drug Form: TAB, Q4H, PRN Pain Score 1-3, Start date: 04/15/12 11:00:00, Duration: 30 day, Stop date: 05/15/12 10:59:00 [facility] morphine Sulfate 2012-04-15 16:00:00 No Melvin Stewart doval Donnell 4 mg, 1 mL, Route: IVP, Drug form: INJ, Q3H, PRN Pain Score 4-6, Start date: 04/15/12 11:00:00, Duration: 30 day, Stop date: 05/15/12 10:59:00 [facility] acetaminophen-hydrocodone 325 mg-5 mg oral tablet 16:00:00 Toña Jacobo 2 tab, Route: PO, Drug Form: TAB, Q4H, PRN Pain Score 4-6, Start date: 04/15/12 11:00:00, Duration: 30 day, Stop date: 05/15/12 10:59:00 [facility] morphine Sulfate 2012-04-15 15:58:00 No Roberto Franco 2 mg, 1 mL, Route: IVP, Drug form: INJ, Q5Min, PRN Pain Score 4-6, Start date: 04/15/12 10:58:00, Duration: 8 doses or times, Stop date: Limited # of times [facility] meperidine 2012-04-15 15:58:00 No Roberto Franco 12.5 mg, 0.5 mL, Route: IVP, Drug form: INJ, Q30Min, PRN Other -See Comment, For shivering, Start date: 04/15/12 10:58:00, Duration: 2 doses or times, Stop date: 04/15/12 18:00:00 [facility] flumazenil 2012-04-15 15:58:00 No Roberto Franco 0.2 mg, 2 mL, Route: IVP, Drug form: INJ, PRN, PRN Benzodiazepine Reversal, Initial dose, Start date: 04/15/12 10:58:00, Stop date: 04/15/12 18:00:00 [facility] naloxone 2012-04-15 15:58:00 No Roberto Franco 0.04 mg, 0.1 mL, Route: IVP, Drug form: INJ, Q2MIN, PRN Narcotic Reversal, Start date: 04/15/12 10:58:00, Duration: 8 doses or times, Stop date: 04/15/12 18:00:00 [facility] ondansetron 2012-04-15 15:58:00 No Roberto Franco 4 mg, 2 mL, Route: IVP, Drug form: INJ, ONCE, PRN Nausea & Vomiting, Start date: 04/15/12 10:58:00 [facility] Xopenex 2012-04-15 12:17:00 No Ronn Burnett 1.25 mg, Route: NEB, ONCE, Start date: 04/15/12 7:17:00, Stop date: 04/15/12 7:17:00 [facility] Lactated Ringers Injection IV 1,000 mL 2012-04-15 11:58:00 No Roberto Franco 1,000 mL, Rate: 25 ml/hr, In fuse over: 40 hr, Route: IV, Dosing Weight 56.364 kg, Total Volume: 1,000, Start date: 04/15/12 6:58:00, Duration: 30 day, Stop date: 05/15/12 6:57:00 Brian schulte Acidophilus Probiotic Blend oral capsule 2012-04-12 18:06:25 Yes 1 tab, PO, Daily, Substitution Allowed, Soft Stop Brian Bonds Xopenex 0.63 mg/3 mL inhalation solution 2012-04-12 18:06:10 Yes 0.63 mg, 3 ml, NEB, Q8H, PRN, 24 ea, as needed for wheezing, Substitution Allowed, SOLN Brian Bonds Osteo Bi-Flex 2012-04-12 18:05:27 Yes 1 tab, PO, Daily, Substitution Allowed, Soft Stop Brian Bonds Mobic 15 mg oral tablet 2012-04-12 18:01:11 Yes 15 mg, 1 tab, PO, Daily, 30 tab, Substitution Allowed, TAB [facility] Women's 2012-04-12 17:54:35 Yes 1 tab, PO, Substitution Allowed, Soft Stop [facility] Vitamin D3 1000 intl units oral capsule 2012-04-12 17:53:13 Yes 1,000 IntlUnit, 1 cap, PO, Daily, 75 cap, Substitution Allowed, CAP [facility] Mucinex 600 mg oral tablet, extended release 2012-04-12 17:52:29 Yes 600 mg, 1 tab, PO, Q12H, PRN, congestion, Substitution Allowed [facility] azelastine nasal 137 mcg/inh spray 2012-04-12 17:52:14 Yes Melvin Jacobo 1 spray, NASAL , BID, PRN, as needed for allergy symptoms, Substitution Allowed, Soft Stop [facility] simvastatin 2011-12-29 00:00:00 Yes TALI MAZARIEGOS 1 tab(s) [facility] Advair Diskus 250-50 MCG/DOSE Inhalation Aerosol Powde r Breath Activated Advair Diskus 250-50 MCG/DOSE Inhalation Aerosol Powder Breath Activated Yes [facility] Zocor 20 MG Oral Tablet Zocor 20 MG Oral Tablet Yes [facility] Boniva 150 MG Oral Tablet Boniva 150 MG Oral Tablet Yes [facility] Mobic 15 MG Oral Tablet Mobic 15 MG Oral Tablet Yes [facility] Albuterol Sulfate (Ventolin Hfa) 18 Gm Hfa.aer.ad Albu terol Sulfate (Ventolin Hfa) 18 Gm Hfa.aer.ad Yes [address] [facility] [place] [place] Ascorbate Calcium/Bioflav (Linda-C 1,000 Mg Tablet) 1 Each Tablet Ascorbate Calcium/Bioflav (Linda-C 1,000 Mg Tablet) 1 Each Tablet Yes [facility] [place] [place] Astelin Astelin Yes [address] [facility] [place] [place] Fluticasone Propionate 15 Gm Cr Fluticasone Propionate 15 Gm Cr Yes [address] [facility] [place] [place] Lactobacillus Rhamnosus R0011 (Probiotic Digestive Car e) 1 Each Capsule Lactobacillus Rhamnosus R0011 (Probiotic Digestive Care) 1 Each Capsule Yes [facility] Levalbuterol Hcl (Xopenex) 0.63 Mg/3 Ml Vial.neb Leval buterol Hcl (Xopenex) 0.63 Mg/3 Ml Vial.neb Yes [address] [facility] [place] [place] Levothyroxine Sodium 75 Mcg Tablet Levothyroxine Sodium 75 Mcg Tablet Yes [address] [facility] [place] [place] Multivitamin (Multi-Vitamin Daily) 1 Each Tablet Multi vitamin (Multi-Vitamin Daily) 1 Each Tablet Yes [facility] [place] [place] Omeprazole 20 Mg Capsule. Omeprazole 20 Mg Capsule. Yes [address] [facility] [place] [place] Ondansetron Hcl (Zofran*) 4 Mg Tablet Ondansetron Hcl (Zofran*) 4 M g Tablet Yes [address] [facility] [place] [place] Potassium Chloride 20 Meq Tab.er.prt Potassium Chloride 20 Meq Tab. er.prt Yes [address] [facility] [place] [place] Promethazine Hcl 25 Mg Tablet Promethazine Hcl 25 Mg Tablet Yes 25 Daily [facility] Salmeterol Xinafoate/Fluticasone (Advair 500/50*) 1 Ea Aerp Salmeterol Xinafoate/Fluticasone (Advair 500/50*) 1 Ea Aerp Yes 1 Every 12 Hours [facility] Simvastatin (Zocor) 20 Mg Tablet Simvastatin (Zocor) 20 Mg Tablet Yes 20 Bedtime [facility] Sodium Chloride 1,000 Mg Tablet.carolyn Sodium Chloride 1,000 Mg Tablet.s ol Yes [facility] Tamoxifen Citrate 10 Mg Tablet Tamoxifen Citrate 10 Mg Tablet Yes 20 Daily [facility] Tiotropium [place] (Spiriva) 18 Mcg Cap.w.dev Tiotropi um [place] (Spiriva) 18 Mcg Cap.w.dev Yes 18 Daily [facility] Vital Signs Vital Name Observation Time Observation Value Comments Source Systolic (mm Hg) 2019-07-31 17:04:00 [facility] [place] Diastolic (mm Hg) 2019-07-31 17:04:00 [facility] orial [place] Heart Rate 2019-07-31 17:04:00 [facility] (mm Hg) 2019-07-11 20:42:00 [facility] [place] Diastolic (mm Hg) 2019-07-11 20:42:00 [facility] orial [place] Heart Rate 2019-07-11 20:42:00 [facility] [place] Systolic (mm Hg) 2019-06-26 15:09:00 [facility] [place] Diastolic (mm Hg) 2019-06-26 15:09:00 [facility] orial [place] Heart Rate 2019-06-26 15:09:00 [facility] Height 2019-06-26 15:09:00 154.94 cm [facility] Weight 2019-06-26 15:09:00 [facility] BMI Calculated 2019-06-26 15:09:00 [facility] Respitory Rate 2019-06-10 01:00:00 [facility] [place] Systolic (mm Hg) 2019-06-10 01:00:00 [facility] [place] Diastolic (mm Hg) 2019-06-10 01:00:00 [facility] [place] Respitory Rate 2019-06-10 00:45:00 [facility] [place] Systolic (mm Hg) 2019-06-10 00:45:00 [facility] Diastolic (mm Hg) 2019-06-10 00:45:00 [facility] [place] Respitory Rate 2019-06-10 00:30:00 [facility] Systolic (mm Hg) 2019-06-10 00:30:00 [facility] Diastolic (mm Hg) 2019-06-10 00:30:00 [facility] [place] Height 2019-06-06 17:47:00 157.48 cm [facility] [place] Weight 2019-06-06 17:47:00 [facility] [place] BMI Calculated 2019-06-06 17:47:00 [facility] [place] Heart Rate 2019-06-06 17:00:00 [facility] Systolic (mm Hg) 2019-05-17 15:34:00 [facility] [place] Diastolic (mm Hg) 2019-05-17 15:34:00 [facility] [place] Heart Rate 2019-05-17 15:34:00 [facility] [place] Height 2019-05-17 15:34:00 167.64 cm [facility] [place] Weight 2019-05-17 15:34:00 [facility] [place] BMI Calculated 2019-05-17 15:34:00 [facility] [place] Temperature Oral (F) 2017-09-05 18:34:00 98.4 F [facility] [place] Systolic (mm Hg) 2017-09-05 18:34:00 [facility] Diastolic (mm Hg) 2017-09-05 18:34:00 [facility] Heart Rate 2017-09-05 18:34:00 [facility] [place] Respitory Rate 2017-09-05 18:34:00 [facility] Weight 2017-09-05 16:04:00 [facility] [place] BMI Calculated 2017-09-05 16:04:00 [facility] Height 2017-09-05 16:04:00 157.48 cm [facility] [place] Heart Rate 2017-09-05 16:04:00 [facility] [place] Respitory Rate 2017-09-05 16:04:00 [facility] Systolic (mm Hg) 2017-09-05 16:04:00 [facility] [place] Diastolic (mm Hg) 2017-09-05 16:04:00 [facility] Temperature Oral (F) 2017-09-05 16:04:00 98.1 F [facility] Systolic (mm Hg) 2017-07-23 17:57:00 [facility] Diastolic (mm Hg) 2017-07-23 17:57:00 [facility] [place] Temperature Oral (F) 2017-07-23 17:57:00 98.2 F [facility] Heart Rate 2017-07-23 17:57:00 [facility] [place] Heart Rate 2017-07-23 13:44:00 [facility] [place] Temperature Oral (F) 2017-07-23 13:44:00 97.7 F [facility] Systolic (mm Hg) 2017-07-23 13:44:00 [facility] [place] Diastolic (mm Hg) 2017-07-23 13:44:00 [facility] [place] Heart Rate 2017-07-23 10:00:00 [facility] [place] Temperature Oral (F) 2017-07-23 10:00:00 98.3 F [facility] [place] Respitory Rate 2017-07-23 10:00:00 [facility] Systolic (mm Hg) 2017-07-23 10:00:00 [facility] [place] Diastolic (mm Hg) 2017-07-23 10:00:00 [facility] [place] Respitory Rate 2017-07-23 05:54:00 [facility] Respitory Rate 2017-07-23 02:07:00 [facility] Height 2017-07-20 18:49:00 160.02 cm [facility] [place] BMI Calculated 2017-07-20 18:49:00 [facility] Weight 2017-07-20 18:49:00 [facility] Systolic (mm Hg) 2016-10-16 19:00:00 [facility] [place] Diastolic (mm Hg) 2016-10-16 19:00:00 [facility] Respitory Rate 2016-10-16 19:00:00 [facility] Heart Rate 2016-10-16 19:00:00 [facility] Temperature Oral (F) 2016-10-16 19:00:00 99.1 F [facility] Heart Rate 2016-10-16 13:00:00 [facility] [place] Systolic (mm Hg) 2016-10-16 13:00:00 [facility] [place] Diastolic (mm Hg) 2016-10-16 13:00:00 [facility] [place] Temperature Oral (F) 2016-10-16 13:00:00 98.6 F [facility] [place] Respitory Rate 2016-10-16 13:00:00 [facility] Respitory Rate 2016-10-16 10:10:00 [facility] Temperature Oral (F) 2016-10-16 10:10:00 98.3 F [facility] Systolic (mm Hg) 2016-10-16 10:10:00 [facility] Diastolic (mm Hg) 2016-10-16 10:10:00 [facility] [place] Heart Rate 2016-10-16 10:10:00 [facility] [place] BMI Calculated 2016-10-15 06:10:00 [facility] Height 2016-10-15 06:10:00 167.64 cm [facility] Weight 2016-10-15 06:10:00 [facility] [place] Weight 2016-10-14 21:11:00 [facility] BMI Calculated 2016-10-14 21:11:00 [facility] Height 2016-10-14 21:11:00 167.64 cm [facility] [place] Systolic (mm Hg) 2016-01-11 18:57:00 [facility] [place] Diastolic (mm Hg) 2016-01-11 18:57:00 [facility] Temperature Oral (F) 2016-01-11 18:57:00 98.2 F [facility] Systolic (mm Hg) 2016-01-11 16:00:00 [facility] Diastolic (mm Hg) 2016-01-11 16:00:00 [facility] [place] Respitory Rate 2016-01-11 16:00:00 [facility] [place] Weight 2016-01-11 15:16:00 [facility] Height 2016-01-11 15:16:00 167.64 cm [facility] [place] BMI Calculated 2016-01-11 15:16:00 [facility] Systolic (mm Hg) 2016-01-11 15:16:00 [facility] Diastolic (mm Hg) 2016-01-11 15:16:00 [facility] Heart Rate 2016-01-11 15:16:00 [facility] Respitory Rate 2016-01-11 15:16:00 [facility] Temperature Oral (F) 2016-01-11 15:16:00 98.3 F [facility] [place] Height 2016-01-07 15:55:00 167.64 cm [facility] [place] Weight 2016-01-07 15:55:00 [facility] BMI Calculated 2016-01-07 15:55:00 [facility] Systolic (mm Hg) 2015-01-30 16:40:00 [facility] [place] Diastolic (mm Hg) 2015-01-30 16:40:00 [facility] [place] Respitory Rate 2015-01-30 16:40:00 [facility] Heart Rate 2015-01-30 16:40:00 [facility] [place] Temperature Oral (F) 2015-01-30 16:40:00 98.6 F [facility] Temperature Oral (F) 2015-01-30 12:00:00 98.4 F [facility] [place] Respitory Rate 2015-01-30 12:00:00 [facility] [place] Heart Rate 2015-01-30 12:00:00 [facility] [place] Systolic (mm Hg) 2015-01-30 12:00:00 [facility] Diastolic (mm Hg) 2015-01-30 12:00:00 [facility] [place] Systolic (mm Hg) 2015-01-30 08:42:00 [facility] Diastolic (mm Hg) 2015-01-30 08:42:00 [facility] [place] Heart Rate 2015-01-30 08:42:00 [facility] [place] Respitory Rate 2015-01-30 08:42:00 [facility] [place] Temperature Oral (F) 2015-01-30 08:42:00 98.9 F [facility] Weight 2015-01-26 00:34:00 [facility] BMI Calculated 2015-01-24 22:08:00 [facility] [place] Weight 2015-01-24 22:08:00 [facility] [place] Height 2015-01-24 22:08:00 167.64 cm [facility] Respitory Rate 2015-01-19 16:50:00 [facility] Systolic (mm Hg) 2015-01-19 16:50:00 [facility] [place] Diastolic (mm Hg) 2015-01-19 16:50:00 [facility] Temperature Oral (F) 2015-01-19 16:50:00 99.8 F [facility] Heart Rate 2015-01-19 16:50:00 [facility] [place] Temperature Oral (F) 2015-01-19 11:33:00 98.5 F [facility] [place] Heart Rate 2015-01-19 11:33:00 [facility] [place] Respitory Rate 2015-01-19 11:33:00 [facility] Systolic (mm Hg) 2015-01-19 11:33:00 [facility] [place] Diastolic (mm Hg) 2015-01-19 11:33:00 [facility] Respitory Rate 2015-01-19 04:54:00 [facility] Systolic (mm Hg) 2015-01-19 04:54:00 [facility] [place] Diastolic (mm Hg) 2015-01-19 04:54:00 [facility] Heart Rate 2015-01-19 04:54:00 [facility] [place] Temperature Oral (F) 2015-01-19 04:54:00 98.3 F [facility] [place] Weight 2015-01-16 03:45:00 [facility] BMI Calculated 2015-01-16 03:45:00 [facility] [place] Height 2015-01-16 03:45:00 167.64 cm [facility] BMI Calculated 2015-01-15 19:54:00 [facility] [place] Weight 2015-01-15 19:54:00 [facility] Height 2015-01-15 19:54:00 167.64 cm [facility] Respitory Rate 2015-01-05 14:10:00 [facility] Systolic (mm Hg) 2015-01-05 12:29:00 [facility] [place] Diastolic (mm Hg) 2015-01-05 12:29:00 [facility] [place] Respitory Rate 2015-01-05 12:29:00 [facility] [place] Heart Rate 2015-01-05 12:29:00 [facility] Temperature Oral (F) 2015-01-05 12:29:00 98.8 F [facility] [place] Respitory Rate 2015-01-05 10:55:00 [facility] [place] Systolic (mm Hg) 2015-01-05 10:55:00 [facility] [place] Diastolic (mm Hg) 2015-01-05 10:55:00 [facility] [place] Heart Rate 2015-01-05 10:55:00 [facility] Temperature Oral (F) 2015-01-05 10:55:00 98.7 F [facility] Systolic (mm Hg) 2015-01-05 00:46:00 [facility] [place] Diastolic (mm Hg) 2015-01-05 00:46:00 [facility] [place] Heart Rate 2015-01-05 00:46:00 [facility] Temperature Oral (F) 2015-01-05 00:46:00 98.4 F [facility] [place] Weight 2014-12-30 17:53:00 [facility] [place] BMI Calculated 2014-12-30 17:53:00 [facility] [place] Height 2014-12-30 17:53:00 167.64 cm [facility] [place] Height 2014-12-30 10:55:00 167.64 cm [facility] [place] Weight 2014-12-30 10:55:00 [facility] [place] BMI Calculated 2014-12-30 10:55:00 [facility] Heart Rate 2014-12-25 21:00:00 [facility] Temperature Oral (F) 2014-12-25 21:00:00 97.8 F [facility] [place] Systolic (mm Hg) 2014-12-25 21:00:00 [facility] [place] Diastolic (mm Hg) 2014-12-25 21:00:00 [facility] Respitory Rate 2014-12-25 21:00:00 [facility] [place] Temperature Oral (F) 2014-12-25 16:00:00 98 F [facility] Respitory Rate 2014-12-25 16:00:00 [facility] Systolic (mm Hg) 2014-12-25 16:00:00 [facility] Diastolic (mm Hg) 2014-12-25 16:00:00 [facility] [place] Heart Rate 2014-12-25 16:00:00 [facility] [place] Respitory Rate 2014-12-25 11:30:00 [facility] [place] Systolic (mm Hg) 2014-12-25 11:30:00 [facility] Diastolic (mm Hg) 2014-12-25 11:30:00 [facility] [place] Temperature Oral (F) 2014-12-25 11:30:00 97.6 F [facility] Heart Rate 2014-12-25 11:30:00 [facility] [place] Weight 2014-12-21 07:31:00 [facility] Height 2014-12-21 07:31:00 165.1 cm [facility] [place] BMI Calculated 2014-12-21 07:31:00 [facility] [place] Temperature Oral (F) 2014-11-27 16:30:00 97.7 F [facility] Heart Rate 2014-11-27 16:30:00 [facility] Systolic (mm Hg) 2014-11-27 16:30:00 [facility] [place] Diastolic (mm Hg) 2014-11-27 16:30:00 [facility] [place] Respitory Rate 2014-11-27 16:30:00 [facility] [place] Heart Rate 2014-11-27 16:27:00 [facility] Systolic (mm Hg) 2014-11-27 16:27:00 [facility] [place] Diastolic (mm Hg) 2014-11-27 16:27:00 [facility] [place] Respitory Rate 2014-11-27 16:27:00 [facility] [place] Temperature Oral (F) 2014-11-27 16:27:00 97.5 F [facility] [place] Respitory Rate 2014-11-27 12:59:00 [facility] [place] Systolic (mm Hg) 2014-11-27 12:59:00 [facility] [place] Diastolic (mm Hg) 2014-11-27 12:59:00 [facility] Temperature Oral (F) 2014-11-27 12:59:00 98.1 F [facility] [place] Heart Rate 2014-11-27 12:59:00 [facility] [place] Weight 2014-11-25 19:59:00 [facility] [place] BMI Calculated 2014-11-25 19:59:00 [facility] Height 2014-11-25 19:59:00 167.64 cm [facility] [place] Temperature Oral (F) 2014-08-20 18:00:00 98.3 F [facility] [place] Height 2014-08-20 18:00:00 [facility] [place] Weight 2014-08-20 18:00:00 [facility] Heart Rate 2014-08-20 18:00:00 [facility] [place] Diastolic (mm Hg) 2014-08-20 18:00:00 [facility] [place] Systolic (mm Hg) 2014-08-20 18:00:00 [facility] Respitory Rate 2014-08-15 18:00:00 [facility] [place] Diastolic (mm Hg) 2014-08-15 17:00:00 [facility] Systolic (mm Hg) 2014-08-15 17:00:00 [facility] [place] Respitory Rate 2014-08-15 17:00:00 [facility] [place] Respitory Rate 2014-08-15 16:00:00 [facility] [place] Systolic (mm Hg) 2014-08-15 15:00:00 [facility] [place] Diastolic (mm Hg) 2014-08-15 15:00:00 [facility] Temperature Oral (F) 2014-08-15 13:42:00 98.8 F [facility] [place] Diastolic (mm Hg) 2014-08-15 13:09:00 [facility] [place] Systolic (mm Hg) 2014-08-15 13:09:00 [facility] Temperature Oral (F) 2014-08-15 10:00:00 98 F [facility] [place] Temperature Oral (F) 2014-08-15 01:44:00 97.6 F [facility] Weight 2014-08-14 01:32:00 [facility] [place] Height 2014-08-14 01:32:00 167.64 cm [facility] BMI Calculated 2014-08-14 01:32:00 [facility] [place] Weight 2014-08-13 20:36:00 [facility] Height 2014-08-13 20:36:00 167.64 cm [facility] [place] BMI Calculated 2014-08-13 20:36:00 [facility] Heart Rate 2014-08-13 20:36:00 [facility] [place] Temperature Oral (F) 2014-04-12 18:00:00 98.6 F [facility] [place] Height 2014-04-12 18:00:00 [facility] [place] Weight 2014-04-12 18:00:00 [facility] [place] Heart Rate 2014-04-12 18:00:00 [facility] [place] Diastolic (mm Hg) 2014-04-12 18:00:00 [facility] [place] Systolic (mm Hg) 2014-04-12 18:00:00 [facility] Temperature Oral (F) 2013-11-16 19:15:00 98.4 F [facility] [place] Height 2013-11-16 19:15:00 [facility] [place] Weight 2013-11-16 19:15:00 [facility] Heart Rate 2013-11-16 19:15:00 [facility] [place] Diastolic (mm Hg) 2013-11-16 19:15:00 [facility] Systolic (mm Hg) 2013-11-16 19:15:00 [facility] Temperature Oral (F) 2013-08-03 20:45:00 98.0 F [facility] [place] Height 2013-08-03 20:45:00 [facility] Weight 2013-08-03 20:45:00 [facility] [place] Heart Rate 2013-08-03 20:45:00 [facility] [place] Diastolic (mm Hg) 2013-08-03 20:45:00 [facility] [place] Systolic (mm Hg) 2013-08-03 20:45:00 [facility] Temperature Oral (F) 2013-08-03 19:45:00 98.0 F [facility] Weight 2013-08-03 19:45:00 [facility] Heart Rate 2013-08-03 19:45:00 [facility] Diastolic (mm Hg) 2013-08-03 19:45:00 [facility] [place] Systolic (mm Hg) 2013-08-03 19:45:00 [facility] [place] Temperature Oral (F) 2013-06-12 18:00:00 98.5 F [facility] [place] Weight 2013-06-12 18:00:00 [facility] [place] Heart Rate 2013-06-12 18:00:00 [facility] [place] Diastolic (mm Hg) 2013-06-12 18:00:00 [facility] [place] Systolic (mm Hg) 2013-06-12 18:00:00 [facility] Temperature Oral (F) 2013-04-28 18:30:00 98.3 F [facility] [place] Weight 2013-04-28 18:30:00 [facility] [place] Heart Rate 2013-04-28 18:30:00 [facility] Diastolic (mm Hg) 2013-04-28 18:30:00 [facility] Systolic (mm Hg) 2013-04-28 18:30:00 [facility] Weight 2013-03-01 20:57:00 [facility] [place] Height 2013-03-01 20:57:00 167.64 cm [facility] Temperature Oral (F) 2013-02-28 20:30:00 98.2 F [facility] [place] Weight 2013-02-28 20:30:00 [facility] Heart Rate 2013-02-28 20:30:00 [facility] [place] Diastolic (mm Hg) 2013-02-28 20:30:00 [facility] [place] Systolic (mm Hg) 2013-02-28 20:30:00 [facility] [place] Height 2013-02-24 16:41:00 167.64 cm [facility] [place] Weight 2013-02-24 16:41:00 [facility] [place] Temperature Oral (F) 2013-01-24 19:45:00 98.1 F [facility] [place] Height 2013-01-24 19:45:00 [facility] Weight 2013-01-24 19:45:00 [facility] Heart Rate 2013-01-24 19:45:00 [facility] Diastolic (mm Hg) 2013-01-24 19:45:00 [facility] Systolic (mm Hg) 2013-01-24 19:45:00 [facility] [place] Systolic (mm Hg) 2012-04-16 16:00:00 [facility] [place] Respitory Rate 2012-04-16 16:00:00 [facility] Diastolic (mm Hg) 2012-04-16 16:00:00 [facility] [place] Temperature Oral (F) 2012-04-16 16:00:00 97.5 F [facility] Heart Rate 2012-04-16 16:00:00 [facility] [place] Systolic (mm Hg) 2012-04-16 11:45:00 [facility] Diastolic (mm Hg) 2012-04-16 11:45:00 [facility] [place] Temperature Oral (F) 2012-04-16 11:45:00 99.9 F [facility] [place] Heart Rate 2012-04-16 11:45:00 [facility] [place] Respitory Rate 2012-04-16 11:45:00 [facility] Heart Rate 2012-04-16 09:37:00 [facility] [place] Temperature Oral (F) 2012-04-16 09:37:00 98 F [facility] [place] Diastolic (mm Hg) 2012-04-16 09:37:00 [facility] [place] Systolic (mm Hg) 2012-04-16 09:37:00 [facility] Respitory Rate 2012-04-16 09:37:00 [facility] Height 2012-04-12 17:42:00 166.37 cm [facility] Weight 2012-04-12 17:42:00 [facility] Procedures Procedure Date / Time Performed Performing Clinician [facility] e Insertion of non-indwelling bladder cath eter (eg, straight catheterization for residual urine) 2019-05-17 15:59:00 [facility] [U] XRAY HIP UNILATERAL MIN 2 VWS LEFT [id number] 2018-03-21 00:00:00 [facility] [U] XRAY WRIST 2 VWS RIGHT [id number] 2017-10-01 00:00:00 [facility] History of Hysterectomy [facility] Hernia repair [facility] Hyste[facility] Insertion of Port-a-cath<sup>1</sup> [facility] Hernia repair [facility] Encounters Start Date/Time End Date/Time Encounter Type Admission Type [facility] Care Department Encounter ID Source 2019-11-08 11:14:00 2019-11-08 23:59:00 [facility] [id number] 2019-11-08 11:14:00 2019-11-08 11:14:00 Outpatient MHNW MHNW [id number] 2019-08-14 10:40:00 2019-08-14 23:59:00 Outpatient Zina MeyerMitch [facility] [id number] 2019-08-14 10:40:00 2019-08-14 10:40:00 Outpatient MHNW MHNW [id number] 2019-07-31 10:30:00 2019-07-31 23:59:59 [facility] [id number] 2019-07-14 14:43:23 2019-07-15 14:43:23 Outpatient MG MG [id number] 2019-07-11 15:45:00 2019-07-11 23:59:59 [facility] [id number] 2019-07-10 12:01:07 2019-07-11 23:59:59 Outpatient MG MG [id number] 2019-06-26 10:15:00 2019-06-26 23:59:59 Outpatient Vamsi Crowley MG MG [id number] 2019-06-09 11:00:00 2019-06-09 20:19:00 Outpatient Vams[facility] Crow[facility] [id number] 2019-06-09 11:00:00 2019-06-09 11:00:00 Outpatient MHNW URO [id number] [facility] 2019-05-17 10:30:00 2019-05-17 23:59:59 Outpatient Vamsi Crowley [facility] [id number] 2019-04-25 08:53:00 2019-04-25 23:59:00 Outpatient Juice Swain MHSE MHSE [id number] 2019-01-23 07:51:00 2019-01-23 23:59:00 Outpatient Zina Meyer Abdur-Mitch MHGHR MHGHR [id number] 2019-01-23 07:51:00 2019-01-23 07:51:00 Outpatient MHNW MHNW [id number] [facility] 2018-11-19 09:41:00 2018-11-19 10:14:00 Departed Emergency Room [facility] [id number] [facility] 2018-10-17 10:56:00 2018-10-17 23:59:00 Outpatient Zina Meyer Abdur-Mitch MHHOIP MHHOIP [id number] 2018-10-17 10:56:00 2018-10-17 23:59:00 Outpatient Zina Meyerb Abdur-Mitch M[facility] MHHOIP [id number] 2018-08-01 11:01:00 2018-08-01 23:59:00 Outpatient Zina Meyer Abdur-Mitch MHGHR MHGHR [id number] 2018-07-11 08:11:00 2018-07-11 23:59:00 Outpatient Zina Meyer Abdur-Mitch MHGHR MHGHR [id number] 2018-06-19 06:07:00 2018-06-19 23:59:00 Outpatient Juice Swain MHSE MHSE [id number] 2018-03-21 15:45:00 2018-03-21 15:45:00 Appointment; HALI PURDY M.D. KENDRICK, JAMES, M.D. [facility] [id number] [facility] 2018-01-10 16:12:00 2018-01-10 17:08:00 Departed Emergency Room [facility] [id number] [facility] 2017-12-20 08:16:00 2017-12-20 23:59:00 Outpatient Zina Meyerb Abdur-Mitch MHGHR MHGHR [id number] 2017-12-20 08:16:00 2017-12-20 23:59:00 Outpatient Zina Meyerb Abdur-Mitch MHGHR MHGHR [id number] 2017-10-04 14:15:00 2017-10-04 14:15:00 Appointment; HALI PURDY M.D. KENDRICK, JAMES, M.D. [facility] UTP [id number] [facility] 2017-10-04 09:45:00 2017-10-04 09:45:00 Appointment; CAMILO BROWN M. D. SHANI, RAJ, M.D. [facility] [id number] [facility] 2017-09-16 08:45:00 2017-09-16 08:45:00 Appointment; HALI PURDY M.D. KENDRICK, JAMES, M.D. [facility] UTP [id number] [facility] 2017-09-11 17:40:00 2017-09-11 21:50:00 Departed Emergency Room [facility] [id number] [facility] 2017-09-08 11:15:00 2017-09-08 11:15:00 Appointment; CAMILO BROWN M. D. SHANI, RAJ, M.D. [facility] [id number] [facility] 2017-09-05 10:01:00 2017-09-05 12:40:00 Outpatient Graciela Bermeo MHGHR MHGHR [id number] 2017-07-20 12:44:00 2017-07-23 13:49:00 Outpatient Melvin Story MHGHR MHGHR [id number] 2017-07-19 15:40:00 2017-07-19 23:59:00 Outpatient Tali Mazariegos MHGHR MHGHR [id number] 2017-06-14 07:40:00 2017-06-14 23:59:00 Outpatient Zina Meyer hahab Abdur-Mitch MHGHR MHGHR [id number] 2017-04-05 12:57:00 2017-04-05 23:59:00 Outpatient Zina Meyer Abdur-Mitch MHGHR MHGHR [id number] 2017-02-26 10:45:00 2017-02-26 10:45:00 Appointment; HALI PURDY M.D. KENDRICK, JAMES, M.D. [facility] UTP [id number] [facility] 2017-01-29 09:15:00 2017-01-29 09:15:00 Appointment; HALI PURDY M.D. KENDRICK, JAMES, M.D. [facility] UTP [id number] [facility] 2017-01-01 15:15:00 2017-01-01 15:15:00 Appointment; HALI PURDY M.D. KENDRICK, JAMES, M.D. [facility] UTP [id number] [facility] 2016-12-31 15:45:00 2016-12-31 15:45:00 Appointment; HALI PURDY M.D. KENDRICK, JAMES, M.D. [facility] UTP [id number] [facility] 2016-11-23 11:19:00 2016-11-23 23:59:00 Outpatient MeyerZina knapp Abdur-Mitch MHGHR MHGHR [id number] 2016-10-14 15:09:00 2016-10-16 15:02:00 Outpatient Tali Mazariegos MHGHR MHGHR [id number] 2016-08-28 12:48:00 2016-08-28 23:59:00 Outpatient Evin Blanc MHGHR MHGHR [id number] 2016-08-17 09:44:00 2016-08-17 23:59:00 Outpatient Zina Meyer Abdur-Mitch MHGHR MHGHR [id number] 2016-08-13 10:38:00 2016-08-13 23:59:00 Outpatient Loki Bruce MHGHR MHGHR [id number] 2016-07-30 08:45:00 2016-07-30 08:45:00 Appointment; GURWINDERHALI M.D. KENDRICK, JAMES, M.D. [facility]TP [id number] [facility] 2016-03-19 09:45:00 2016-03-19 09:45:00 Appointment; VESNA SWAIN HENRY [facility] UTP [id number] [facility] 2016-02-28 09:00:00 2016-02-28 09:00:00 Appointment; VESNA SWAIN HENRY UTP UTP [id number] [facility] 2016-02-17 09:25:00 2016-02-17 23:59:00 Outpatient BhCorby elizondood K MHGHR MHGHR [id number] 2016-02-11 15:15:00 2016-02-11 15:15:00 Appointment; VESNA SWAIN HENRY UTP UTP [id number] [facility] 2016-02-06 10:15:00 2016-02-06 10:15:00 Appointment; VESNA SWAIN HENRY UTP UTP [id number] [facility] 2016-02-03 07:19:00 2016-02-03 23:59:00 Outpatient Mitch S hahab Abdur-Mitch MHGHR MHGHR [id number] 2016-01-27 12:12:00 2016-01-27 23:59:00 Outpatient Bhluisanaar, Evin K MHGHR MHGHR [id number] 2016-01-11 10:05:00 2016-01-11 14:00:00 Outpatient Luis Villarreal MHGHR MHGHR [id number] 2016-01-07 09:37:00 2016-01-07 23:59:00 Outpatient Meyer S hahab Abdur-Mitch MHGHR MHGHR [id number] 2015-12-13 09:52:00 2015-12-13 23:59:00 Outpatient Loki Bruce MHGHR MHGHR [id number] 2015-11-07 08:41:00 2015-11-07 23:59:00 Outpatient Bhluisanaar, Evin K MHGHR MHGHR [id number] 2015-09-26 07:06:00 2015-09-26 23:59:00 Outpatient Sahra Sousa MHGHR MHGHR [id number] 2015-09-11 13:30:00 2015-09-11 13:30:00 Appointment; HALI PURDY M.D. KENDRICK, JAMES, M.D. [facility] [id number] [facility] 2015-08-15 15:34:00 2015-08-15 23:59:00 Outpatient GarrettrussellCorbyod Matteo MHGHR MHGHR [id number] 2015-08-05 07:23:00 2015-08-05 23:59:00 Outpatient Evin Blanc MHGHR [facility] [id number] 2015-04-15 07:35:00 2015-04-15 23:59:00 Outpatient Zina Meyer [facility] GHR [id number] 2015-01-24 16:55:00 2015-01-30 14:30:00 Outpatient Iris Mazariegos MHIE MHIE [id number] 2015-01-15 14:47:00 2015-01-19 16:25:00 Outpatient Clive Hargrove MHIE MHIE [id number] 2014-12-30 05:50:00 2015-01-05 10:45:00 Outpatient Clive Hargrove MHIE MHIE [id number] 2014-12-21 02:30:00 2014-12-25 15:37:00 Outpatient Iris Mazariegos MHIE MHIE [id number] 2014-11-25 14:56:00 2014-11-27 16:46:00 Outpatient Iris Mazariegos MHIE MHIE [id number] 2014-11-22 15:00:00 2014-11-22 15:00:00 Outpatient Iris MAAZRIEGOS MD [place] [id number] eClinicalWorks 2014-11-19 13:00:00 2014-11-19 13:00:00 Outpatient Iris MAZARIEGOS [place] [id number] eClinicalWorks 2014-10-22 10:55:00 2014-10-22 23:59:00 Outpatient Arron Blanc MHIE MHIE [id number] 2014-10-09 12:45:00 2014-10-09 23:59:00 Outpatient Daphne holden Rob Denny JANEL JANEL [id number] 2014-10-03 12:54:00 2014-10-03 23:59:00 Outpatient Rob Hinds Loki JANEL JANEL [id number] 2014-08-20 13:00:00 2014-08-20 13:00:00 Outpatient Iris MAZARIEGOS MD PA Iris MAZ[place]IEGOS MD [place] [id number] eClinicalWorks 2014-08-16 10:16:00 2014-08-16 10:16:00 Outpatient [facility]. [id number] eClinicalWorks 2014-08-13 14:18:00 2014-08-15 13:03:00 Outpatient RadhagersonCarrington [id number] 2014-07-20 12:13:00 2014-07-20 12:13:00 Outpatient [facility] H.SRosa Elena [id number] eClinicalWorks 2014-06-14 16:34:00 2014-06-14 16:34:00 Outpatient [facility] [id number] eClinicalWorks 2014-04-12 13:00:00 2014-04-12 13:00:00 Outpatient [facility] [id number] eClinicalWorks 2014-01-12 11:13:00 2014-01-12 23:59:00 Outpatient TatiannaReyna JANEL [id number] 2013-11-17 08:41:00 2013-11-17 23:59:00 Outpatient Iris Mazariegos JANEL [id number] 2013-11-16 14:15:00 2013-11-16 14:15:00 Outpatient [facility] Elena [id number] eClinicalWorks 2013-11-15 12:26:00 2013-11-15 23:59:00 Outpatient Daphne Montalvo Rob holden JANEL JANEL [id number] 2013-08-17 13:08:00 2013-08-17 13:08:00 Outpatient [facility] Elena [id number] eClinicalWorks 2013-08-03 14:45:00 2013-08-03 14:45:00 Outpatient Iris MAZARIEGOS MD [place] [id number] eClinicalWorks 2013-07-28 11:48:19 2013-07-28 11:48:18 Outpatient MHIE MHIE [id number] 2013-06-12 13:00:00 2013-06-12 13:00:00 Outpatient Iris MAZARIEGOS MD [place] [id number] eClinicalWorks 2013-04-28 13:30:00 2013-04-28 13:30:00 Outpatient Iris MAZARIEGOS MD [place] [id number] eClinicalWorks 2013-04-01 03:17:42 2013-04-01 03:17:22 Outpatient MHIE MHIE [id number] 2013-02-28 15:30:00 2013-02-28 15:30:00 Outpatient Iris MAZARIEGOS MD [place] [id number] eClinicalWorks 2013-01-31 09:51:00 2013-01-31 09:51:00 Outpatient Vernon Mazariegos H.SRosa Elena [id number] eClinicalWorks 2013-01-24 14:45:00 2013-01-24 14:45:00 Outpatient Iris MAZARIEGOS [place] [id number] eClinicalWorks 2012 18:34:58 2012 18:34:42 Outpatient MHIE MHIE [id number] Results Test Description Test Time Test Comments Results Result Comments Source CHEM PANEL 2019-06-06 18:01:00 [facility]M PANEL 2019-06-06 18:01:00 14 [facility] [employer] CHEM PANEL 2019-06-06 18:01:00 0.55 [facility] CHEM PANEL 2019-06-06 18:01:00 129 [facility] CHEM PANEL 2019-06-06 18:01:00 4.9 [facility] CHEM PANEL 2019-06-06 18:01:00 98 [facility] CHEM PANEL 2019-06-06 18:01:00 23 [facility] CHEM PANEL 2019-06-06 18:01:00 8.8 [facility] CHEM PANEL 2019-06-06 18:01:00 93 Jojo [facility]s CHEM PANEL 2019-06-06 18:01:00 12.9 Eliasor scar Fryeann HEMATOLOGY 2019-06-06 18:01:00 12.9 Memor scar [facility]s HEMATOLOGY 2019-06-06 18:01:00 39.1 Jojo Bonds [U] XRAY HIP UNILATERAL MIN 2 VWS LEFT [id number] 2018-03-21 15:35:00 Images acquired, not reported on this accession number. [facility] [U] XRAY WRIST MIN 3 VWS LEFT [id number] 2017-10-04 10:16:00 Images acquired, not reported on this accession number. [facility] Magnesium Level 2017-09-11 20:56:00 Test Item Magnesium Level (test code = 69045-5) 1.4 1.3[facility]2.1 [facility]86[facility]25 19:08:00* Test Item Value Reference Range Interpretation Comments Sodium Level (test code = 2951-2) 131 136-[address] [facility] [place], [place]Potassium Uaepq8071-57-28 19:08:00* Test Item Value Reference Range Interpretation Comments Potassium Level (test code = 2823-3) 3.1 3.5-5.[address] [facility] [place], TXChloride Lwgyg7982-67-59 19:08:00* Test Item Value Reference Range Interpretation Comments Chloride Level (test code = 2075-0) 100 98-[address] [facility] [place], TXCarbon Dioxide Nuxrn4406-55-28 19:08:00* Test Item Value Reference Range Interpretation Comments Carbon Dioxide Level (test code = 2028-9) 23 22-[address] [facility] [place], TXAnion Plu6809-96-21 19:08:00* Test Item Value Reference Range Interpretation Comments Anion Gap (test code = 03955-3) 11.1 8-[address] [facility] [place], TXBlood Urea Eunyvxrd0840-20-14 19:08:00* Test Item Value Reference Range Interpretation Comments Blood Urea Nitrogen (test code = 3094-0) 9 7-[address] [facility] [place], TXCreatinine2017-12-30 19:08:00* Test Item Value Reference Range Interpretation Comments Creatinine (test code = 2160-0) 0.58 0.57-1.[address] [facility] [place], TXBUN/Creatinine Odeai9682-87-65 19:08:00* Test Item Value Reference Range Interpretation Comments BUN/Creatinine Ratio (test code = 3097-3) 16 6-[address] [facility] [place], TXEstimat Glomerular Filtration Rate 2017-09-11 19:08:00* Test Item Value Reference Range Interpretation Comments Estimat Glomerular Filtration Rate (test code = 84125-0) 60- >60 Ranges were taken from the National Kidney Disease Education Program and the [facility] Kidney Foundation literature.Reference ranges:60 or greater: Erddbz23-80 ( for 3 consecutive months): Chronic kidney disease 15 or less: Kidney failure[facility] [place], TXGlucose Burve0179-39-86 19:08:00* Test Item Value Reference Range Interpretation Comments Glucose Level (test code = PON3763) 100 74-[address] [facility] [place], TXCalcium Adydy0306-81-43 19:08:00* Test Item Value Reference Range Interpretation Comments Calcium Level (test code = 80525-5) 8.5 8.4-10.[address] [facility] [place], TXTotal Yggqjmvfk4175-53-58 19:08:00* Test Item Value Reference Range Interpretation Comments Total Bilirubin (test code = 1975-2) 0.7 0.2-1.[address] [facility] [place], TXAspartate Amino Transf (AST/SGOT) 2017-09-11 19:08:00* Test Item Value Reference Range Interpretation Comments Aspartate Amino Transf (AST/SGOT) (test code = Aspartate Amino Transf (AST/SGOT)) 16 5-[address] [facility] [place], TXAlanine Aminotransferase (ALT/SGPT) 2017-09-11 19:08:00* Test Item Value Reference Range Interpretation Comments Alanine Aminotransferase (ALT/SGPT) (test code = 1742-6) 11 0-[address] [facility] [place], TXTotal Elpnwbc9348-43-47 19:08:00* Test Item Value Reference Range Interpretation Comments Total Protein (test code = 2885-2) 6.0 6.5-8.[address] [facility] [place], TXAlbumin2017-12-30 19:08:00* Test Item Value Reference Range Interpretation Comments Albumin (test code = 1751-7) 2.8 3.5-5.[address] [facility] [place], TXGlobulin2017-12-30 19:08:00* Test Item Value Reference Range Interpretation Comments Globulin (test code = 70069-1) 3.2 2.3-3.[address] [facility] [place], TXAlbumin/Globulin Thrvt8861-10-01 19:08:00 * Test Item Value Reference Range Interpretation Comments Albumin/Globulin Ratio (test code = 1759-0) 0.9 0.8-2.[address] [facility] [place], TXAlkaline Phcnncaiqwv8767-53-64 19:08:00* Test Item Value Reference Range Interpretation Comments Alkaline Phosphatase (test code = 6768-6) 70 40-[address] [facility] [place], TXWhite Blood Xbugx3659-04-17 18:32:00* Test Item Value Reference Range Interpretation Comments White Blood Count (test code = 6690-2) 9.16 4.8-10.[address] [facility] [place], TXRed Blood Ltloo4692-97-21 18:32:00* Test Item Value Reference Range Interpretation Comments Red Blood Count (test code = 789-8) 3.99 3.6-5.[address] [facility] [place], TXHemoglobin2017-12-30 18:32:00* Test Item Value Reference Range Interpretation Comments Hemoglobin (test code = 59849-8) 11.3 12.0-16.[address] [facility] [place], TXHematocrit2017-12-30 18:32:00* Test Item Value Reference Range Interpretation Comments Hematocrit (test code = 4544-3) 32.9 34.2-44.[address] [facility] [place], TXMean Corpuscular Aeykxt0369-16-68 18:32:00* Test Item Value Reference Range Interpretation Comments Mean Corpuscular Volume (test code = 787-2) 82.5 81-[address] [facility] [place], TXMean Corpuscular Tfzpibgqtl4528-89-56 18:32:00* Test Item Value Reference Range Interpretation Comments Mean Corpuscular Hemoglobin (test code = 785-6) 28.3 28-[address] [facility] [place], TXMean Corpuscular Hemoglobin Concent 2017-09-11 18:32:00* Test Item Value Reference Range Interpretation Comments Mean Corpuscular Hemoglobin Concent (test code = 786-4) 34.3 31-[address] [facility] [place], TXRed Cell Distribution Ttuzl8503-36-88 18:32:00* Test Item Value Reference Range Interpretation Comments Red Cell Distribution Width (test code = 42899-4) 12.8 11.7 -14.[address] [facility] [place], TXPlatelet Quljw7825-21-84 18:32:00* Test Item Value Reference Range Interpretation Comments Platelet Count (test code = 777-3) 322 140-[address] [facility] [place], TXNeutrophils (%) (Auto)2017-09-11 18:32:00 * Test Item Value Reference Range Interpretation Comments Neutrophils (%) (Auto) (test code = 00072-9) 74.9 38.7-80.[address] [facility] [place], TXLymphocytes (%) (Auto)2017-09-11 18:32:00 * Test Item Value Reference Range Interpretation Comments Lymphocytes (%) (Auto) (test code = 736-9) 16.3 18.0-39.[address] [facility] [place], TXMonocytes (%) (Auto)2017-09-11 18:32:00* Test Item Value Reference Range Interpretation Comments Monocytes (%) (Auto) (test code = 5905-5) 6.7 4.4-11.[address] [facility] [place], TXEosinophils (%) (Auto)2017-09-11 18:32:00 * Test Item Value Reference Range Interpretation Comments Eosinophils (%) (Auto) (test code = 713-8) 1.7 0.0-6.[address] [facility] [place], TXBasophils (%) (Auto)2017-09-11 18:32:00* Test Item Value Reference Range Interpretation Comments Basophils (%) (Auto) (test code = 706-2) 0.2 0.0-1.[address] [facility] [place], TXIM GRANULOCYTES %2017-09-11 18:32:00* Test Item Value Reference Range Interpretation Comments IM GRANULOCYTES % (test code = IM GRANULOCYTES %) 0.2 0.0- 1.[address] [facility] [place], TXNeutrophils # (Auto)2017-09-11 18:32:00* Test Item Value Reference Range Interpretation Comments Neutrophils # (Auto) (test code = 751-8) 6.9 2.1-6.[address] [facility] [place], TXLymphocytes # (Auto)2017-09-11 18:32:00* Test Item Value Reference Range Interpretation Comments Lymphocytes # (Auto) (test code = 73516-6) 1.5 1.0-3.[address] [facility] [place], TXMonocytes # (Auto)2017-09-11 18:32:00* Test Item Value Reference Range Interpretation Comments Monocytes # (Auto) (test code = 742-7) 0.6 0.2-0.[address] [facility] [place], TXEosinophils # (Auto)2017-09-11 18:32:00* Test Item Value Reference Range Interpretation Comments Eosinophils # (Auto) (test code = 711-2) 0.2 0.0-0.[address] [facility] [place], TXBasophils # (Auto)2017-09-11 18:32:00* Test Item Value Reference Range Interpretation Comments Basophils # (Auto) (test code = 704-7) 0.0 0.0-0.[address] [facility] [place], TXAbsolute Immature Granulocyte (auto 2017-09-11 18:32:00* Test Item Value Reference Range Interpretation Comments Absolute Immature Granulocyte (auto (laura t code = Absolute Immature Granulocyte (auto) 0.[address] 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 Swab (07/22/17 6:00 AM)[facility]annCHEM PANEL 2017-07-22 10:25:25446Lyibylrw HermannCHEM PQIOZ3532-03-39 10:25:0021[facility]annCHEM XCAXX9008-25-20 10:25:007.9[facility]annCHEM UJECH4155-98-81 10:25:003.8[facility]annCHEM HZJIP8017-40-55 10:25:57718Hiittvzc HermannCHEM RTJVI5623-35-77 10:25:000.40[facility]annCHEM GXRUL5259-37-66 10:25:56914 [facility]annCHEM AQEDI9750-19-74 10:25:0015[facility] HermannCHEM PANEL 2017-07-22 10:25:31246Wljkqvun HermannCHEM ZTREQ4520-87-07 10:25:0012.8[facility] StjmbfrSNKOKOEHPY4762-60-04 10:25:0013.0[facility] CkgcpxzKYTGJIZCKA9708-51-99 10:25:0083.1[facility] DvqwpmsBZPAOKDRJA6679-50-31 10:25:000.2[facility] ILJTUSQFFG0898-63-91 10:25:003.9[facility] DqwjgacQNPOSFCPNB2616-31-59 10:25:005.4 [facility] TmfimudTPYKJHQRKL3431-61-60 10:25:000.8[facility] HermannHEMATOLOGY 2017-07-22 10:25:003.83[facility] HwrnsbxZFMTIAJRRS0511-13-34 10:25:0010.9[facility] MedjlbvMNZFTSWGQR2857-16-65 10:25:37033Aeymgcae EzgmrrxJXLDIBOMHA0318-55-57 10:25:0013.4[facility] EjpojwyRPTADTTNDZ8996-89-26 10:25:0032.0[facility] SHJEQWFLIR5206-13-81 10:25:008.1[facility] XrseqznBWLYOZMTBA3336-65-56 10:25:00 34.1[facility] FcipaqoVOPUNDIIVD3523-59-47 10:25:00* Test Item Value Reference Range Interpretation Comments MCH (test code = MCH) 28.5 pg 27.0-31.0 [facility] OhaszcuYZHWLWIIUP9058-22-23 10:25:0083.5[facility] HermannHEMATOLOGY 2017-07-22 10:25:006.5[facility] SzdndtwVCTYNLIDAW6567-12-19 23:12:008.7[facility] WhfjbikUBPCDOFAGM8344-44-95 23:12:76616Tzkzyfoi CompklhVYVSVRZWMD9374-71-58 23:12:00* Test Item Value Reference Range Interpretation Comments MCH (test code = MCH) 28.7 pg 27.0-31.0 [facility] UtyadtjBKHSSIIGFV7826-67-63 23:12:0083.4[facility] HermannHEMATOLOGY 2017-07-21 23:12:0033.3[facility] BmgqjxqWRPGATVEZA6826-72-37 23:12:0011.5[facility] YpfchicTCSJEUHLBR8718-40-30 23:12:0013.0[facility] WnktdmrPPKCPYPAXE3050-82-46 23:12:0034.4[facility] CeevsyuEHYGPUDQKZ9493-37-88 23:12:003.99[facility] LNAJPGYRIS5402-80-32 23:12:004.1[facility] SbdrnrrPAUHDBDEPK1009-60-54 23:12:000.3 [facility] TjoikszSDEUAWIWHI0018-06-95 23:12:0072.3[facility] HermannHEMATOLOGY 2017-07-21 23:12:0021.1[facility] ZrnueqmPJNWRWAGBX0222-91-00 23:12:006.6[facility] XomjzckQRJUDMNVJR4513-45-93 23:12:003.0[facility] IbmgsyfPVBPFPAIFI1226-57-73 23:12:000.9[facility] HermannCARDIAC MFYEKSJ9205-66-95 10:32:47985Shuplxnf [facility] CHEM DFGML2117-74-99 10:32:002.1[facility] HshwryiUPYIFQMSVIZS6497-69-43 10:32:00 22[facility] UkdtcpnLTDDLCLQYTVL2128-41-72 10:32:0014.1[facility] DPBWAKWEVYDP6578-84-64 10:32:008.3[facility] KmpcoevAZGWYNNVOWLL8454-06-57 10:32:0019[facility] GjajnbpXYBAIMWOEXBJ5913-91-30 10:32:006.5[facility] RDGKAHICITQA9952-34-22 10:32:000.47[facility] PowdmweBHGSCZPQFLWU5250-44-03 10:32:24903Elnxujdc NnoehztLBUZFJOGOPGA0836-69-51 10:32:004.1[facility] FXCLGHPTTSFT5579-56-65 10:32:19621Lngmjsxg QogjgffZKSOPOOKSKWZ4340-19-75 10:32:003.3[facility] MabcufyKJXXGYBLDOHS0292-68-10 10:32:001.0[facility] QHKHLCDVILXW5789-00-17 10:32:0021[facility] ZyxubqiSQNNRCGJKKRZ2656-75-18 10:32:00 62[facility] NhovwanQQSIJFHRWJUP3810-73-61 10:32:0021[facility] HermannELECTROLYTES 2017-07-21 10:32:003.2[facility] CrlphohCTLGIQABSHVQ7621-76-61 10:32:009[facility] EyinedoVQRCCYEXNWAT5377-41-81 10:32:000.5[facility] MewhmlsSLAVOLYTRYUR4714-68-60 10:32:0099[facility] RfvkdhnMWLTCEDCRCEI3602-72-94 10:32:54682Bciuzaer [facility] PGYBAVJZZN6155-11-59 10:32:003.4[facility] FnqcnjaZQMKARZJBI3169-48-91 10:32:000.1 [facility] TuyulygKDIZLWEOVF7009-61-72 10:32:000.4[facility] HermannHEMATOLOGY 2017-07-21 10:32:001.1[facility] PwenzrnQZICIGMEOV2078-23-87 10:32:000.2[facility] ZtvjfizUZZGKKDBQY9881-27-55 10:32:0025.0[facility] LqistdxTNVSAXCCAW5474-59-90 10:32:0071.4[facility] HwjufuuAGGEYUGFMG8971-26-67 10:32:0034.0[facility] EHONTRSYZX7059-31-25 10:32:0013.0[facility] EhlhgcsLXUNQDULVR3057-03-31 10:32:00 235[facility] NlxsafiMVTVWVKKRR9993-51-10 10:32:008.4[facility] HermannHEMATOLOGY 2017-07-21 10:32:004.18[facility] AnyoytoFTUWJXCPGC4495-04-97 10:32:0011.7[facility] KqvivuxOMCXTEBHYN7535-03-63 10:32:0034.5[facility] NisvrbuQZTKRELPHV3929-47-84 10:32:0082.6[facility] EjorhacCYUZHJHXJL0172-32-49 10:32:00* Test Item Value Reference Range Interpretation Comments MCH (test code = MCH) 28.1 pg 27.0-31.0 [facility] KrbzqskGLLXSWQOIL0498-72-52 10:32:001.6[facility] HermannURINE CHEM 2017-07-21 03:45:20500Eyyrxfyw HermannURINE DQLF5034-76-72 03:45:0016[facility] HermannCARDIAC LYWPQUH5785-26-68 02:17:47612Tdkorjxs HermannCARDIAC ENZYMES 2017-07-21 02:17:49228Adgtftfy HermannCARDIAC RNNHOQH0015-15-15 02:17:00<0.02 [facility]annCHEM XPSET9036-79-86 02:17:46411Tjhvmaxz HermannCARDIAC ENZYMES 2017-07-20 22:46:000.9[facility] HermannCARDIAC ANBLKXY0681-25-13 22:46:00<0.02 [facility]annCARDIAC JGXTMWD9947-41-56 22:46:65078Lxigqwna HermannCARDIAC MHJVSCC0741-95-70 22:46:001.2[facility] HermannCHEM NAYYT4621-14-35 22:46:0091 [facility]annCHEM LBQJM4380-66-16 22:46:0015.0[facility] HermannCHEM PANEL 2017-07-20 22:46:0011[facility] HermannCHEM YSYFS3786-95-35 22:46:003.5[facility] HermannCHEM MLQHX7610-18-37 22:46:001.0[facility] HermannCHEM SCJEN1956-17-09 22:46:0035[facility] HermannCHEM GLPZH1900-75-18 22:46:0025[facility] HermannCHEM YRWHO3063-13-76 22:46:0067[facility] HermannCHEM VVDYX2862-17-42 22:46:000.3 [facility]annCHEM LSBXP4473-07-43 22:46:007.0[facility] HermannCHEM PANEL 2017-07-20 22:46:003.5[facility] HermannCHEM NRJID8083-38-24 22:46:0022[facility] HermannCHEM FXKXA2578-77-37 22:46:008.9[facility] HermannCHEM JBETR6495-18-81 22:46:0096[facility]annCHEM FFLCP7564-59-10 22:46:000.61[facility]annCHEM LCNGU0375-47-93 22:46:31699Mxtwlvst HermannCHEM WTMIH5596-29-61 22:46:004.0 [facility]annCHEM LIWEZ7488-76-43 22:46:23966Bxbpjvwt HermannCHEM PANEL 2017-07-20 22:46:007[facility] HermannCHEM YSVDK3884-72-14 20:31:001.5[facility] CywkanbFVAPUUQCXR4374-38-97 20:31:000.0[facility] ClggmzaRGCTRTABUN7061-41-15 20:31:000.2[facility] TqfpzvgINGOOHHGGW2295-42-54 20:31:000.0[facility] AMFNUSHJGB9502-25-24 20:31:000.0[facility] HermannCHEM JITNI9782-42-43 18:59:0087 [facility]annCHEM XMPMV0144-22-47 18:59:000.7[facility] HermannCHEM PANEL 2016-10-16 10:01:0097[facility] HermannCHEM IVAVZ9627-43-72 10:01:007[facility] HermannCHEM WNQJB8424-12-39 10:01:0085[facility] HermannCHEM IKKEY1683-79-56 10:01:000.50[facility] HermannCHEM KLISO5395-68-46 10:01:97796Ywxyfbtq HermannCHEM MZOHH2235-78-51 10:01:0020[facility] HermannCHEM YUCZY0622-57-84 10:01:006.4 [facility]annCHEM JCUDJ4246-32-42 10:01:008.5[facility] HermannCHEM PANEL 2016-10-16 10:01:0020[facility] HermannCHEM OJGVE4546-30-06 10:01:003.6[facility] HermannCHEM NICJX7464-10-49 10:01:0048[facility] HermannCHEM WGYEN4089-27-30 10:01:0023[facility] HermannCHEM HVWUS8781-39-38 10:01:000.8[facility] HermannCHEM DCIXJ0296-32-05 10:01:004.2[facility] HermannCHEM CFSCN8530-35-71 10:01:0098 [facility]annCHEM QJFHV7959-07-88 10:01:001.3[facility] HermannCHEM PANEL 2016-10-16 10:01:002.8[facility] HermannCHEM KALBD9344-67-09 10:01:0014[facility] HermannCHEM TSEPU0226-92-10 10:01:0015.2[facility] CwmgzupFHFPYCLIFO3756-65-05 10:01:000.4[facility] JcqfiosYPNUEHHZME8001-85-79 10:01:000.1[facility] TDBLBTZZKS9384-58-80 10:01:0068.1[facility] FcsctlgCSSWSJXOCD1705-05-74 10:01:00 1.4[facility] PxakphgPIJGSRHFJZ3215-95-45 10:01:000.4[facility] HermannHEMATOLOGY 2016-10-16 10:01:007.1[facility] NcsxkwzBBHTFLGSDW5392-17-16 10:01:0023.5[facility] DyaokacUDXLZAFLLP2090-44-07 10:01:004.0[facility] ClzvykqQAWRAIPJXS8634-27-69 10:01:000.9[facility] JwskiioFSEGNCPCIE7020-24-41 10:01:0013.3[facility] IVZZXSWEQT5596-26-60 10:01:0038.1[facility] GwvjjrdERSFEZGTFP7490-01-91 10:01:00 5.9[facility] OyvptijRNYKZJOSLT8142-20-79 10:01:004.67[facility] HermannHEMATOLOGY 2016-10-16 10:01:008.0[facility] KdmezwsRGPNCRJLAT5933-02-16 10:01:0013.5[facility] SsbrppmWLQMYWARVE2225-92-95 10:01:73267Leqkkjvx DyxzplgGUWEQVTJWX9539-40-79 10:01:00* Test Item Value Reference Range Interpretation Comments MCH (test code = MCH) 28.4 pg 27.0-31.0 [facility] SndkuhpGDHXZSECKT4674-64-92 10:01:0034.9[facility] HermannHEMATOLOGY 2016-10-16 10:01:0081.5[facility] OuyzevyGFCHRMLBLKTN5662-43-33 00:31:83652 [facility]annURINE XSFL0473-16-19 23:29:0022[facility] HermannURINE CHEM 2016-10-15 23:29:75631Mitknqwj HermannCHEM RHCMF6489-91-99 18:35:97944Womnvcai KitwcetYQZXERUULFDW1506-06-32 18:35:37563Elhejdar KxhclkdMUMDIZMZUYOD7151-15-26 10:06:0011.6[facility] AqgecpeMHUGSKHWHPGY5095-42-69 10:06:01550Urajhnua Vamshi SASJJMELOHYI8156-41-65 10:06:007.5[facility] WlfkdsmJVZESVIAHXAM9689-18-17 10:06:0094[facility] GbrrqkbITLLLQCDNDUA0007-07-34 10:06:003.6[facility] Vamshi XGPOBUVDJDZF5728-74-52 10:06:007[facility] VawenpbZVIZQJRMXAMJ8744-02-79 10:06:00 0.41[facility] LooprrlMKJKXEOMLLJT5986-89-67 10:06:14740Svybfcrh [place] YASSRDNUMZOF3146-26-87 10:06:0021[facility] JtlzxtpLGECQKIUPM2237-09-36 10:06:00 35.4[facility] SbshmxkXVOYZHPFXF9931-81-46 10:06:0012.3[facility]annHEMATOLOGY 2016-10-15 10:06:00* Test Item Value Reference Range Interpretation Comments MCH (test code = MCH) 28.3 pg 27.0-31.0 [facility] FxjfomfWLEMDZFXYH2218-88-39 10:06:0081.3[facility]annHEMATOLOGY 2016-10-15 10:06:004.35[facility] LkfcbdqLGJIBNBCZV8286-49-67 10:06:004.9[facility] YuzzdvzAGHAKYLKEH4832-35-43 10:06:61154Yqwofwny RytkncaUTLUAQICFU1591-04-74 10:06:0013.1[facility] LtowatgQOCMPUSALP2062-97-07 10:06:008.3[facility] Vamshi XRDKRCHRHQ8715-11-68 10:06:0034.8[facility] NsylmevOGKUAXGTHR9910-15-95 10:06:00 0.1[facility] QaxaigjOYJAUMWLDU5887-11-53 10:06:002.6[facility]annHEMATOLOGY 2016-10-15 10:06:000.5[facility] BpqebxaIHNYDPINDX9624-55-18 10:06:001.6[facility] BjnxyurHPVVPSNXKE7410-23-89 10:06:000.9[facility] YruilvuRVCNSWLHHL6764-32-06 10:06:001.6[facility] DyzniawDIXIYEWCQO8449-27-52 10:06:0054.2[facility] [place] RFRJXSUNRE1892-69-63 10:06:009.7[facility] YnmegcxGMWNAFJLRA9174-15-17 10:06:00 33.6[facility] HermannCHEM UDAFB5087-96-28 02:35:77739Zexsvwkp HermannCHEM PANEL 2016-10-15 02:35:003.8[facility] HermannCHEM FAZAB1263-87-17 02:35:0078[facility]annCHEM JJCVK8928-18-90 02:35:006[facility]annCHEM SHWKE3939-76-43 02:35:000.37[facility]annCHEM CNQQM6684-34-20 02:35:0091[facility]annCHEM HTOKM1065-16-61 02:35:0021[facility]annCHEM VRKDM2230-61-35 02:35:0012.8 [facility]annCHEM OXGUG8780-46-67 02:35:007.1[facility]annCHEM PANEL 2016-10-14 22:39:0052[facility] HermannCHEM HLKET9856-17-22 22:39:0014[facility]annCHEM XFXZF2927-08-15 22:39:000.6[facility]annCHEM PQWNE8663-14-30 22:39:002.6[facility]annCHEM OUSBB0654-05-24 22:39:001.4[facility]annCHEM DUCNR7614-03-99 22:39:0017[facility]annCHEM AOBEP8334-41-31 22:39:006.2 [facility]annCHEM DPKZX4078-91-62 22:39:003.6[facility]annCHEM PANEL 2016-10-14 22:39:0020[facility]annCHEM NTGZB3536-79-23 22:39:92751Jmliwsoe QikkxntMDAQLFTZOA4384-30-47 22:39:0012.1[facility] ClloqghISIVUCZZLM3830-63-63 22:39:0012.8[facility] YfapdisGDPTFMOEXI3956-26-59 22:39:008.1[facility] [place] WEMQZENAPI3337-53-94 22:39:00* Test Item Value Reference Range Interpretation Comments MCH (test code = MCH) 28.5 pg 27.0-31.0 [facility] XrjnoicGOKQFJPDWC4286-13-51 22:39:0035.8[facility] HermannHEMATOLOGY 2016-10-14 22:39:82303Obpdofhp RaansraUOTGFILAYZ1103-76-73 22:39:004.25[facility] KqthcjeBXRGIFWWXB7735-90-72 22:39:0079.7[facility] KduetqiPMVAJYSAJU0949-46-24 22:39:0033.9[facility] HvranfyNOKYYRRODN1817-99-99 22:39:005.8[facility] Vamshi FSMHHNOVOT8862-15-15 22:39:002.2[facility] MbjqvzpRWOMEAYPNI7396-42-57 22:39:000.5 [facility] UwbkefoSLWTHMKDAI9707-61-63 22:39:000.9[facility]MAT[facility] 2016-[facility]-14 22:39:003.0[facility] NbgoiexKCPIGUAKQF4411-74-46 22:39:000.1[facility] IdkgdosLMQKIZQJVV0334-02-24 22:39:000.1[facility] FpvyftiEKNKYUJJZE9871-57-61 22:39:002.4[facility] GyxdiqgBGAIHMRRQE2190-59-93 22:39:0050.9[facility] [place] VQCIMFKIGP9879-43-90 22:39:008.7[facility] EqewyhqPSUONYCYWL0878-63-23 22:39:00 37.1[facility] XJVZX0916-37-07 22:39:00None Seen (10/14/16 4:39 PM) [facility] GOKIN5242-95-98 22:39:00* Test Item Value Reference Range Interpretation Comments UA Spec Grav (test code = UA Spec Grav) 1.015 1 [facility] PNHGY5327-38-69 22:39:00Clear (10/14/16 4:39 PM)[facility] ZJKDV2060-63-02 22:39:00Yellow *NA*(10/14/16 4:39 PM)[facility] YCQGL0527-11-15 22:39:00* Test Item Value Reference Range Interpretation Comments UA pH (test code = UA pH) 6.5 1 5.0-8.0 [facility] YSPQY7276-86-52 22:39:00Negative (10/14/16 4:39 PM) [facility] BTDMG0110-71-40 22:39:000.2[facility] EZZLP1723-78-53 22:39:00Negative (10/14/16 4:39 PM)[facility] STOOL 2016-10-14 22:39:00Negative (10/14/16 4:39 PM)[facility] STOOL 2016-10-14 22:39:00Negative *NA*(10/14/16 4:39 PM)[facility] CHEM 2016-10-14 22:39:49305Iwndesay HermannCHEM OBGAP1408-81-48 13:12:0098[facility]annCHEM VFVXZ8666-14-77 13:12:000.5[facility]annCHEM NYSEL6518-20-04 16:37:58520Wetrhrln HermannCHEM FLDQI2839-94-98 16:37:0066[facility]annCHE[facility] JWPJT8656-62-55 16:37:0025[facility]annCHE[facility] GWNON0273-45-20 16:37:0064 [facility]annCHE[facility] AZNMA6891-04-48 16:37:000.5[facility]annCHEM PANEL 2016-01-11 16:37:003.6[facility]annCHE[facility] XOWAJ9204-71-23 16:37:0022[facility]annCHE[facility] QKTXQ8050-21-87 16:37:007.0[facility]annCHEM QGJIG1408-58-65 16:37:86919Rcvpxcgl HermannCHEM PNXCA6752-45-11 16:37:004.6[facility]annCHEM XZMOO4627-61-11 16:37:71483Vqwxgiir HermannCHEM QSFVK9103-90-67 16:37:000.88 [facility]annCHE[facility] GCCEO1076-00-64 16:37:0013[facility]annCHEM PANEL 2016-01-11 16:37:0075[facility]annCHE[facility] XFYGT9690-06-40 16:37:008.9[facility]annCHEM RPHGS6000-43-68 16:37:0028[facility]annCHE[facility] EQZUV5309-77-23 16:37:001.1[facility]annCHEM DVBBA0262-06-27 16:37:006.6[facility]annCHEM NNDMJ6855-72-85 16:37:0015[facility]annCHE[facility] ZTGOL8923-50-45 16:37:003.4 [facility] QlczvlnBFXYHBWFOB5558-90-21 16:37:000.6[facility]annHEMATOLOGY 2016-01-11 16:37:001.9[facility] FnpewnsDPXNMOHOVC8987-56-39 16:37:004.0[facility] QgdypjhADDJNPWLFO6496-88-08 16:37:000.6[facility] EltbgszEHRMXYCYRV0359-01-82 16:37:002.7[facility] MbhlrgsDLBVXTPTWJ3553-37-86 16:37:000.2[facility] [place] NRUYHCRKZZ8367-86-76 16:37:0011.1[facility] TcapligNKSESTKYRQ0674-06-99 16:37:00 35.4[facility] KoirwicZRDTRNMGJC6591-39-63 16:37:0048.9[facility]annHEMATOLOGY 2016-01-11 16:37:00* Test Item Value Reference Range Interpretation Comments MCH (test code = MCH) 28.1 pg 27.0-31.0 [facility] QqotubvEXBXTLFOFS7380-34-24 16:37:008.0[facility]annHEMATOLOGY 2016-01-11 16:37:0013.0[facility] EugswrfCEAAEYRDRM8124-57-20 16:37:0085.0[facility] QjlgmykVZGRJRGUMH8710-82-76 16:37:0033.0[facility] AinyyicCFUBKQYJVF9365-35-98 16:37:92430Brvgsdgr GccwsozBLCEESKCWJ4375-53-92 16:37:005.4[facility] XXYLBTNSYF2905-29-47 16:37:0013.2[facility] FxdnsasHFLFBPCAQH9877-92-06 16:37:00 4.71[facility] VmbystdQYXKEAIYTC3479-19-24 16:37:0040.0[facility]annCHEM PANEL 2016-01-07 15:22:000.8[facility]annCHEM MMLPZ6702-72-97 15:22:0074[facility]annCHEM TFVMK1399-35-18 10:46:0093[facility]annCHEM SUSIF0620-58-01 10:46:0084[facility]annCHEM AVBKH8318-18-27 10:46:0012[facility]annCHEM GTSNJ7230-11-89 10:46:31418Uzwpmlnt HermannCHEM VNSGD1508-00-19 10:46:0026 [facility]annCHE[facility] HSSRL4881-24-70 10:46:33530Vrantujl HermannCHEM PANEL 2015-01-30 10:46:003.4[facility]annCHEM RBAXL0468-90-21 10:46:000.6[facility]annCHEM SWRTF5113-50-51 10:46:007.7[facility]annCHEM RPYPV0021-48-19 10:46:0013.4[facility] FrvonafHRFGVYEVCMPI1727-99-41 09:56:06631Tvgkkxpu [place] TYTMALJCPLQV6803-87-71 09:56:0093[facility] XcrfxdoVDDAUZHAWQCH1266-30-97 09:56:00 13[facility] CzjeuhjNDCZIVPOPLZW9643-22-27 09:56:000.6[facility] HermannELECTROLYTES 2015-01-29 09:56:10791Xyihlrzq IetlfspHGEESQAEDSLM7944-35-32 09:56:0014.4 [facility] UiaqayvMWGTUFPFYBLE9983-54-04 09:56:0025[facility] HermannELECTROLYTES 2015-01-29 09:56:008.0[facility] UihrxrdFTZCQXPVVAKR6020-48-19 09:56:0099[facility] IokndvdYYLTFAIDPCJW4644-40-04 09:56:003.4[facility] VyjdtgiYLLSMRROSK7431-64-67 19:46:557693Vrnxicxl CwnqhgvSESPOGVRPE1893-50-87 19:46:005.2[facility] URINE NHEH4679-37-15 10:46:97343Javjrtpc HermannCHEM FBACD1069-06-28 10:01:54167 [facility] QwxoswdKCQJYLQMTYQJ5152-70-91 10:01:0012.7[facility] HermannELECTROLYTES 2015-01-28 10:01:008.4[facility] BkulvukQOLHKOIAKAOC2041-28-02 10:01:51654Ijqhbrgt HlnknhyZGDJGMJMNKXB6623-98-71 10:01:0011[facility] EkghifcUZLWDNKJCPSU2688-55-45 10:01:0024[facility] DyjdkuiMAGNOOZEHJWG6792-63-45 10:01:000.7[facility] ODGYZXPXLOVS8677-29-59 10:01:10785Omtugpdw WtmaenmYHSIMUUUAGTS8819-93-94 10:01:85678Ehuewmoo KswgbavVSNTEDRNUORE1677-75-94 10:01:003.7[facility] [place] UIRZMAAHVGRF2600-63-79 10:01:0088[facility]annCHEM LPFUP4921-55-09 22:09:00 2.6[facility]annCHEM RHQGQ4376-96-33 11:36:002.2[facility]annCHEM PANEL 2015-01-27 11:36:001.9[facility]annCHEM DHVBK0336-53-81 22:09:002.5[facility]URINE PFNZ4718-17-34 11:23:05997Sokxiofp HermannCHEM LWFRY2658-32-70 11:16:0016[facility]annCHEM JCGPT8205-14-61 11:16:001.0[facility]annCHEM YWTWJ3487-90-94 11:16:0066[facility]annCHEM SJYQJ1588-89-69 11:16:0012 [facility]annCHEM PUBAZ9166-32-10 11:16:000.3[facility]annCHEM PANEL 2015-01-26 11:16:006.5[facility]annCHEM RMCUE9875-67-63 11:16:003.3[facility]annCHEM PHCSJ7201-44-38 11:16:0014[facility]annCHEM MZORO1043-41-43 11:16:003.2[facility]annCHEM YESOP0841-33-50 11:16:85619Bqytsgft HermannCHEM QGOEF5172-10-75 11:16:002.0[facility] HermannTHYROID TIPQB5620-22-39 11:16:000.824 [facility]annTHYROID PWTYY4893-09-09 11:16:001.19[facility] HermannTHYROID LUVOT0470-88-05 11:16:001.25[facility] HermannBACTERIAL - PQUWNSFB3122-71-72 02:43:00Negative 10(01/25/15 9:43 PM)[facility] HLNC5593-41-98 02:43:0083[facility]annCHEM XUDDZ3240-92-10 11:57:001.6[facility] MULRQIKMUF3626-86-98 11:57:007.2[facility] BgluiypWMXOBQGRMW3543-96-95 11:57:72030 [facility] KdpmajvLKANFINYZE5284-93-89 11:57:0014.6[facility]annHEMATOLOGY 2015-01-25 11:57:00* Test Item Value Reference Range Interpretation Comments MCH (test code = MCH) 28.8 pg 27.0-31.0 [facility] BxnagzyBICSSJYOWV1129-57-56 11:57:0033.6[facility]annHEMATOLOGY 2015-01-25 11:57:005.6[facility] JnbeoykTLSGUFUETB4032-78-30 11:57:0010.6[facility] CcvbfufYGIUMLBCVK7135-67-17 11:57:003.69[facility] ZggasigOTIMAOHXUI1333-04-90 11:57:0085.8[facility] QzrycdxZUFHERFFZL1492-55-15 11:57:0031.6[facility] [place] AYBALQZLRP6411-03-10 11:57:00* Test Item Value Reference Range Interpretation Comments PTT (test code = PTT) 33.4 s 22.9-35.8 [facility] KtasfpeJJLBGWXKOS8181-71-69 11:57:00* Test Item Value Reference Range Interpretation Comments PT (test code = PT) 13.9 s 12.0-14.7 [facility] TbmtuduTOYJPGVAKU2472-18-97 11:57:001.07[facility]annHEMATOLOGY 2015-01-25 11:57:000.0[facility] AvnqxboPNTZXDGAFW6313-83-98 11:57:000.1[facility] QcrhogeLSLNFHPTZB3041-32-33 11:57:000.5[facility] YsksyhiVBBGFSJKYV8642-40-02 11:57:001.1[facility] LfsatxaPPWYKNLVWH9583-18-82 11:57:0070.8[facility] GWDDESVIPS1401-97-59 11:57:004.0[facility] JhhlkatQQNMLSGWFP9558-07-33 11:57:008.9 [facility] GqedialLPLHSZCCHN1865-50-85 11:57:000.7[facility]annHEMATOLOGY 2015-01-25 11:57:0018.7[facility] DqfsfdgKQQULAVDTH1612-00-56 11:57:000.9[facility] AND YDYIZ3558-16-19 01:22:00* Test Item Value Reference Range Interpretation Comments UA pH (test code = UA pH) 6.0 1 5.0-8.0 [facility] DEIKD6805-60-74 01:22:00Negative (01/24/15 8:22 PM) [facility] FTLLE7747-77-17 01:22:00>=1.030 *ABN*(01/24/15 8:22 PM) [facility] OAGLL4289-70-94 01:22:00Clear (01/24/15 8:22 PM) [facility] RQAAM4144-16-66 01:22:00Negative (01/24/15 8:22 PM) [facility] ELIRN2959-66-56 01:22:00Negative (01/24/15 8:22 PM) [facility] UHHST0171-79-86 01:22:00Yellow *NA*(01/24/15 8:22 PM) [facility] FBVUX6450-51-66 01:22:000.2[facility] VZBCK0995-93-64 01:22:00Negative (01/24/15 8:22 PM)[facility] FPIQV0790-76-13 01:22:00Negative (01/24/15 8:22 PM)[facility] MHQLW3900-62-40 01:22:00Negative *NA*(01/24/15 8:22 PM)[facility]annCARDIAC MQXEPFG8110-17-13 23:38:00<0.02[facility]annCHEM PCGPB6687-49-70 23:38:000.8 [facility] VuvhlnqUJHNPHNGPV2763-27-59 23:38:007.7[facility]annHEMATOLOGY 2015-01-24 23:38:0034.2[facility] RtrddueFASBDDNAMX8858-91-23 23:38:65049Sljdjosa UynwzhwPDYGVTJTZW7734-85-35 23:38:0014.6[facility] GadrodsSEUKJAYFRD2261-80-51 23:38:00* Test Item Value Reference Range Interpretation Comments MCH (test code = MCH) 29.3 pg 27.0-31.0 [facility] ZzxagjaFPTYIPGXOF1738-99-81 23:38:0031.1[facility]annHEMATOLOGY 2015-01-24 23:38:0010.6[facility] JfsrhjwRIEZWIKABJ6929-95-20 23:38:006.0[facility] DqoqkyvBNBJKDMSOO2667-61-62 23:38:003.63[facility] BqbhbghRDRZWZYMYW5661-48-61 23:38:0085.8[facility] AiudzjlBELDKKTCKC7804-44-39 23:38:000.6[facility] EEALQVWBJJ9610-89-12 23:38:003.7[facility] GjphslrYEWTBSEUKN3032-01-37 23:38:00 61.2[facility] AxaptekYIBBQDWHBB0474-51-66 23:38:0028.5[facility]annHEMATOLOGY 2015-01-24 23:38:001.7[facility] KxbymavBOUHUGUMCY9903-05-98 23:38:008.2[facility] FsmqvyeAKYDDMDUEY4672-49-47 23:38:001.5[facility] XzipmopAVCKBJTCSL3445-95-76 23:38:000.5[facility] EsczxlbVUADBTOJCK1773-48-76 23:38:000.0[facility] GNYQEZPNAU0768-00-36 23:38:000.1[facility]annCHEM YMYOO9249-54-03 09:09:0088 [facility]annCHEM ZGUZE1365-19-53 09:09:33841Nvesbjmf HermannCHEM PANEL 2015-01-19 09:09:0089[facility]annCHEM ENJHY8334-65-97 09:09:008[facility]annCHEM OBONI0597-90-55 09:09:000.7[facility]annCHEM UWAHV3183-05-25 09:09:004.4[facility]annCHEM AISUT5502-10-19 09:09:0098[facility]annCHEM JBJHS3511-59-99 09:09:008.6[facility]annCHEM WOJSZ7463-33-63 09:09:0022 [facility]annCHEM NLWXN5091-00-62 09:09:0014.4[facility] HermannELECTROLYTES 2015-01-18 17:59:0012.6[facility] PgagdpaNNENWVLGOYCM3126-25-10 17:59:0013[facility] CuucsedNWGAWUPATEWJ5535-54-47 17:59:003.3[facility] XbwzqcvJIMUEOGKARAJ1989-23-91 17:59:000.9[facility] FhjlczfKZAKTXFCEAUA6616-95-40 17:59:0088[facility] QLYQZHRMAXGG2011-60-33 17:59:000.5[facility] UmbtjxgNQXQGAATZHKM3746-50-60 17:59:0097[facility] DlgagoeRXPHXHCVOMWE7032-92-46 17:59:009[facility] OYRKAHSFDLMS2587-36-27 17:59:000.7[facility] CvrngfnWKAYNSRUYAJL7221-97-08 17:59:003.6[facility] KkjprmiNXGFIVLFLHLI8091-44-12 17:59:006.4[facility] [place] KEERRLLMWWDF9906-19-97 17:59:003.1[facility] KmegvzrFRZAMWSLUJWO0960-42-36 17:59:0014[facility] OodkywfIJKLYIPJFOER3698-61-42 17:59:008[facility] [place] OJYAZUBCDDJC2168-54-71 17:59:0074[facility] MxnaapmCQOCRAKALACC4817-44-24 17:59:00 8.3[facility] AsbwczkDCLMGCNMHBUN9894-75-02 17:59:69855Bmwlogjs [place] GMUBVUFLVOOK4395-65-91 17:59:0098[facility] WrrfzimKADRKNJADEWY4546-13-98 17:59:00 23[facility] CknqsinDTIQZMEDWG5534-93-97 17:59:0015.6[facility]annHEMATOLOGY 2015-01-18 17:59:0032.6[facility] JxkpmvySXFDKBSKCG5855-32-02 17:59:72887Tnrsruhi JzdwcwxZOCRCEONQR4685-12-82 17:59:007.9[facility] SejkesuHFCPDBQEGQ1260-43-18 17:59:0031.8[facility] OnaicokCJUDTZJIPM0554-94-54 17:59:0087.6[facility] [place] ZYFTATHFPI9238-33-51 17:59:00* Test Item Value Reference Range Interpretation Comments MCH (test code = MCH) 28.6 pg 27.0-31.0 [facility] WyswsmxCLDNEFPKRL0133-81-44 17:59:003.64[facility]annHEMATOLOGY 2015-01-18 17:59:006.4[facility] AlugnlfFUPZLLWKXP0331-49-21 17:59:0010.4[facility] OvqoxnbMQNAJSFPOE7630-40-33 17:59:000.3[facility] KboyzbpNPEDGJNIMP7886-71-49 17:59:001.1[facility] NnypeguRJJKQPTHRF3276-42-50 17:59:000.6[facility] DJVZPVRAGX2299-05-36 17:59:000.8[facility] GanfhsdHOXLITDXBU3850-99-91 17:59:004.3 [facility] TkhinwvZJESSWPXQS1879-28-70 17:59:0010.1[facility]annHEMATOLOGY 2015-01-18 17:59:004.9[facility] AqppehcVDURSLCAZW6719-95-07 17:59:0066.9[facility] FocsagvKBODGHUWBX4530-80-83 17:59:0017.3[facility] AkqjimaDAWIJJPDPR9674-03-76 17:59:000.1[facility]annCHEM CGIXQ4895-40-06 09:34:001.1[facility] HermannCHEM MHNBW7957-71-85 09:34:0013[facility]annCHEM NQNIP4624-05-97 09:34:002.7 [facility]annCHEM QRTPO9339-56-12 09:34:0014.9[facility]annCHEM PANEL 2015-01-17 09:34:0093[facility]annCHEM PEEBH2946-23-47 09:34:000.6[facility]annCHEM IFOWD2196-93-33 09:34:53037Cjswrfum HermannCHEM OHHUE4011-42-68 09:34:003.9[facility]annCHEM WVJKR7575-23-13 09:34:14863Oqelewzs HermannCHEM SEXMA5673-93-81 09:34:0013[facility]annCHEM CKEHI5071-02-95 09:34:0014 [facility]annCHEM PPXBC6407-97-39 09:34:005.8[facility]annCHEM PANEL 2015-01-17 09:34:003.1[facility]annCHEM JOUEE2201-26-64 09:34:0068[facility]annCHEM LWBER9832-51-75 09:34:000.4[facility]annCHEM VZRRA6128-39-25 09:34:0021[facility]annCHEM KLNCS4389-22-79 09:34:008.1[facility]annCHEM KPUAI0663-55-96 09:34:008[facility]annCHEM ZYYLT0102-74-36 09:34:0088[facility] RuopuivWRVVQNNAFD5885-03-45 09:34:0033.6[facility] EbwyszvQHUYYWBEAN7584-66-64 09:34:00* Test Item Value Reference Range Interpretation Comments MCH (test code = MCH) 29.2 pg 27.0-31.0 [facility] DmwputpDGAWRAYJNR4666-14-43 09:34:83940Lsicilmy HermannHEMATOLOGY 2015-01-17 09:34:0015.6[facility] ItcoocsOWTNNAJVFT5145-11-44 09:34:007.6[facility] KluibucQNWGGBPNME9450-33-68 09:34:0086.9[facility] AfazwavKSHJPQGOEZ5028-66-96 09:34:0030.9[facility] XxovvuuVSXGFHUKTO1700-11-37 09:34:005.6[facility] [place] CSDQHRFVCJ1016-96-14 09:34:0010.4[facility] BregtjwWJNKLHIXWJ6834-78-84 09:34:00 3.55[facility] DigfylhKCNJRIMVMQ5765-51-82 09:34:000.4[facility]annHEMATOLOGY 2015-01-17 09:34:000.0[facility] LlauukkNXMTBINBOL2978-01-67 09:34:003.2[facility] NsyjeajVJPIIQRKGF4408-07-46 09:34:001.4[facility] DeueqwcJXHKQCEGJR1398-31-21 09:34:000.6[facility] JlizmreRFKMKQVRXV6709-19-47 09:34:0010.1[facility] BAYDAEVUCJ0319-91-93 09:34:006.9[facility] JidmjywUAVISKVIFQ9407-11-26 09:34:000.5 [facility] NhgmeptPVCZUUJBVX9914-86-73 09:34:0025.1[facility]annHEMATOLOGY 2015-01-17 09:34:0057.4[facility] HermannCHEM ZJIYE2111-05-66 10:00:001.0[facility] HermannCHEM CAUSR2570-27-29 10:00:0014[facility] HermannCHEM IORTC4451-00-95 10:00:003.2[facility] HermannCHEM JEQPF9113-68-33 10:00:000.8[facility] HermannCHEM MKRZX7756-48-84 10:00:0014[facility] HermannCHEM JLHWV4885-76-90 10:00:0069 [facility]annCHEM QZHDZ9643-04-81 10:00:0015[facility] HermannCHEM PANEL 2015-01-16 10:00:006.3[facility] HermannCHEM NRJIS8922-09-64 10:00:003.1[facility] IghvnlgZOUNLOHCBM9339-40-13 10:00:000.5[facility] DnmiqqvRHRENCCSSV9796-35-66 10:00:000.4[facility] ZbqtepbDWHGQJNAPY4569-16-92 10:00:000.0[facility] [place] JIAUNUXGNG9562-13-09 10:00:0049.7[facility] ElwpdgkFSALLINPUS2227-09-73 10:00:00 2.6[facility] XmpvkfzMZQPQHOPAR7315-81-63 10:00:001.7[facility] HermannHEMATOLOGY 2015-01-16 10:00:0032.3[facility] GfmfmdrEVKYUELBNE5411-58-37 10:00:008.4[facility] VkwvpjkCAYRJWOYZG8824-35-24 10:00:008.8[facility] CoalwudHWRYZBXGPJ8758-04-08 10:00:000.8[facility] HglbktyLXKFYDKBUH8221-04-33 10:00:007.9[facility] [place] YVWTSCVMDW4650-39-25 10:00:005.3[facility] CjigugoSNLGODXBJF4036-24-29 10:00:15039 [facility] YigxiyzNKTMAAKSCZ0871-24-88 10:00:0015.3[facility]annHEMATOLOGY 2015-01-16 10:00:0086.5[facility] IsbscbsTFQIIUHPOD4671-18-62 10:00:00* Test Item Value Reference Range Interpretation Comments MCH (test code = MCH) 29.6 pg 27.0-31.0 [facility] WwnjnpaEUFKOYOSBK1344-63-32 10:00:0034.2[facility]annHEMATOLOGY 2015-01-16 10:00:0011.0[facility] HkdwjiyIKOBVHXKLC7993-15-12 10:00:003.71[facility] ZymgsnmYFSOWHEVKB8450-02-87 10:00:0032.1[facility]annURINE AND STOOL 2015-01-16 04:35:00None Seen (01/15/15 11:35 PM)[facility] STOOL 2015-01-16 04:35:00None Seen (01/15/15 11:35 PM)[facility] STOOL 2015-01-16 04:35:00None Seen (01/15/15 11:35 PM)[facility] STOOL 2015-01-16 04:35:00Trace *ABN*(01/15/15 11:35 PM)[facility] STOOL 2015-01-16 04:35:00Negative (01/15/15 11:35 PM)[facility] STOOL 2015-01-16 04:35:00Performed (01/15/15 11:35 PM)[facility] STOOL 2015-01-16 04:35:00Negative *NA*(01/15/15 11:35 PM)[facility] STOOL 2015-01-16 04:35:00Negative (01/15/15 11:35 PM)[facility] STOOL 2015-01-16 04:35:000.2[facility]UR[facility] AND KCNTM9948-30-12 04:35:00Negative (01/15/15 11:35 PM)[facility] PTRJD4061-84-45 04:35:00* Test Item Value Reference Range Interpretation Comments UA pH (test code = UA pH) 6.0 1 5.0-8.0 [facility] WHNFB8418-32-96 04:35:00Negative (01/15/15 11:35 PM) [facility] OJNLJ0851-64-44 04:35:00Clear (01/15/15 11:35 PM) [facility] AGXMO1945-48-09 04:35:00<=1.005 *NA*(01/15/15 11:35 PM) [facility]annCARDIAC CWSXHCO6304-61-83 21:45:00<0.02[facility] HermannCARDIAC ZMEREGZ1190-78-62 21:45:00<1.7[facility] HermannCARDIAC FSWKDPS5162-90-26 21:45:00 <0.5[facility] HermannCARDIAC LOYHXWI0531-86-44 21:45:0030[facility] [place] VKHRGUCVJYBE8219-59-11 08:19:008.4[facility] BfpckgkXVZVSRZQGYPI9732-69-01 08:19:0093[facility] LttzrzoGJDLPMWNJXNT8190-59-35 08:19:0027[facility] [place] MFAZPAIYXPZZ3466-52-78 08:19:91278Mqrpcjox RykrpdzWXYCWPREJDEG1313-58-62 08:19:008.7[facility] FbyjsjjNNEPTHIOKKMR0518-20-06 08:19:003.4[facility] PAYQEWWNXBTV9137-00-98 08:19:73611Bxnicqzd JvmjnnxEUPUAFYTXSHJ0205-33-43 08:19:90380Rddajmat MsnxpvnOCRURCXBDRXC3609-04-38 08:19:000.6[facility] VMPGPGQEDTEP9042-17-30 08:19:005[facility] FwamirpYGMASXZKBS0181-85-22 08:19:000.0 [facility] McckjrdAONGYBVZDV4916-81-74 08:19:000.1[facility]annHEMATOLOGY 2015-01-03 08:19:001.5[facility] EvctrevTUOHKVNCXX4954-02-53 08:19:000.5[facility] KsshaauBOVFXUMNAG6620-37-92 08:19:009.7[facility] QaymxwtJVXPKRLGQS3441-64-14 08:19:0028.6[facility] UmbmoauFUOQFQMAAE8250-09-89 08:19:003.1[facility] GHFGWUZODZ8138-98-89 08:19:0060.4[facility] EutaxdpSBTSZAQIEP9872-74-11 08:19:00 1.1[facility] KywomssFJOLBJDYHE3088-54-52 08:19:000.2[facility]annHEMATOLOGY 2015-01-03 08:19:009.6[facility] UkvodqjRDIGCZGZXI6161-46-49 08:19:003.36[facility] TalcnpyZXRACAFFRK2487-42-49 08:19:0028.5[facility] AemnupsWXUSCWPFIZ6833-44-82 08:19:005.1[facility] LijfdgwPXBLVAQSDI0251-90-81 08:19:81656Cwllydjs [place] KZBYNBTPHM7920-91-00 08:19:0014.8[facility] EnpdaxeKNWYPSZUPZ9783-01-52 08:19:00 7.6[facility] EfckacdFIQTMVFRPW6816-27-56 08:19:0033.6[facility]annHEMATOLOGY 2015-01-03 08:19:00* Test Item Value Reference Range Interpretation Comments MCH (test code = MCH) 28.5 pg 27.0-31.0 [facility] GykdcdyLOXIEPRSKY1350-87-30 08:19:0084.9[facility]annCHEM PANEL 2015-01-02 11:05:0098[facility]annCHE[facility] DNGKW9273-17-08 11:05:001[facility]annCHE[facility] DXWIQ9559-02-10 11:05:000.5[facility]annCHEM ZMOGR5226-63-58 11:05:0092[facility]annCHEM PEKWM4461-72-31 11:05:0024[facility]annCHEM WXDVG6026-02-63 11:05:009.1[facility]annCHEM BUMLD1558-53-77 11:05:95316 [facility] DSAEB9070-55-42 11:05:59014Hitmjbdl HermannCHEM PANEL 2015-01-02 11:05:003.1[facility]annCHEM CACRO0294-02-38 11:05:008.5[facility] CdflbozYRLSWKRNUQ2591-75-67 11:05:10528Sxgghvgl GllpqupHZVBPCPKTP4258-66-35 11:05:0014.9[facility] JxvznsiCODRJHHUHY2532-52-32 11:05:0033.6[facility] EADJXZGMOI2971-52-74 11:05:007.6[facility] ZimkdbqTEFRQNBLKP2278-48-99 11:05:00* Test Item Value Reference Range Interpretation Comments MCH (test code = MCH) 28.6 pg 27.0-31.0 [facility] SlboxsgFKJAEWYOXV5079-97-79 11:05:003.52[facility]annHEMATOLOGY 2015-01-02 11:05:005.0[facility] VffvkyzQHNPDROTLR0092-54-27 11:05:0085.2[facility] CakebjuCIEFNCUVQV7771-97-77 11:05:0030.0[facility] LasvhluDFUZEEWQPT9869-60-84 11:05:0010.1[facility] VvhmxnyXBHHIFJWHZ7911-68-84 11:05:0052.1[facility] CBHVUFDDUI9278-95-56 11:05:000.0[facility] NuazuckMTTPEFEHBW3559-16-66 11:05:000.1 [facility] OvpwtlwZGCOMZPVPK5278-10-99 11:05:000.6[facility]annHEMATOLOGY 2015-01-02 11:05:0012.1[facility] VwlnhxdMQEYKFUMIF2537-36-90 11:05:0034.0[facility] DhhrwqfAUHHQAKCAX2676-34-87 11:05:000.7[facility] TevdugrEJGWPJJPKO2787-35-37 11:05:001.7[facility] YpncuenFKLAFPYCPI3008-81-94 11:05:001.1[facility] IEBGVNWEVZ9307-24-55 11:05:002.6[facility] BswxxkmCWHDLRWSBYYW8020-78-20 11:18:00 23[facility] LnzgaxcQZNNPHMMHDSP9342-26-69 11:18:0012.1[facility] IBJFECXCSTBB0378-01-69 11:18:008.3[facility] HlzcmueSGXSNHGAABMA9581-59-57 11:18:0088[facility] SbffbmoCYDJCPBMEXZT6501-30-83 11:18:003.1[facility] AUOTZNKJSCUX3979-45-57 11:18:98103Myonvobj AxzrcxsITVHOMLNFGOO3533-46-36 11:18:84875Jykkfszi KbktyfjJAZQTHTNYGKL8608-59-70 11:18:003[facility] RESEGZPKNCNY4842-34-64 11:18:000.7[facility] PbkfpiwWGHDULNQWACB7314-42-26 11:18:35243Mspobrnl RjfidwuGRUFZQBREU0355-52-69 11:18:0010.6[facility] ASYUZYCPGA8257-36-06 11:18:003.4[facility] EfoqtcsKWEGCZHDXC8844-06-78 11:18:00 3.72[facility] GigvvylXCXTRRZSXU7321-17-29 11:18:13911Zaxehmez HermannHEMATOLOGY 2015-01-01 11:18:007.4[facility] VjhkojjKIDRDLMTHI6953-71-29 11:18:0033.3[facility] TxbbousJZHLYHCADH8067-90-79 11:18:00* Test Item Value Reference Range Interpretation Comments MCH (test code = MCH) 28.6 pg 27.0-31.0 [facility] ZnihyixTKCLZCGJGE2577-71-51 11:18:0014.6[facility]annHEMATOLOGY 2015-01-01 11:18:0085.8[facility] NcfrmifDEAWZUBXBW7397-30-01 11:18:0031.9[facility] DneaagySTNFXVECEC1956-76-15 11:18:0030.3[facility] GudivucSIQDCXKUHZ2830-95-85 11:18:0054.3[facility] HoavbqdBZCZVBVUFI1945-72-13 11:18:0014.2[facility] CRHKXBPIFW4220-92-72 11:18:000.0[facility] HuegukrHKULPVROLV4243-87-24 11:18:000.5 [facility] GrsuefpJFXXNAUCWH3863-89-54 11:18:000.0[facility]annHEMATOLOGY 2015-01-01 11:18:000.5[facility] DnimvqfCIJYARYPVZ5636-23-98 11:18:000.7[facility] DrqxfhrPQRXPRWYVX6660-57-21 11:18:001.0[facility] AipwpeuHBMSQFMDBI4496-38-10 11:18:001.8[facility] HermannMOLECULAR TQZIQZLTTG0233-29-94 18:07:00Negative 8(12/31/14 1:07 PM)[facility] GkltewjBKWFWLPUOU7772-23-04 13:56:001+ *ABN*(12/31/14 8:56 AM)[facility] CxihosjIADJDQZAPW3519-30-08 13:56:00Moderate *ABN*(12/31/14 8:56 AM)[facility] FljveycCMPLIMYJZN4526-87-95 13:55:0013.1[facility] HermannCHEM PANEL 2014-12-30 20:29:003.0[facility]annCHEM MAFSZ9508-89-03 20:29:001.1[facility]annCHEM IMYJJ1192-03-25 20:29:0021[facility]annCHEM YYDAO6307-29-64 20:29:0021[facility]annCHEM GLLXB1488-16-83 20:29:000.6[facility]annCHEM ZHGZJ8833-58-84 20:29:0085[facility]annCHEM NYGZL0660-07-74 20:29:006.2 [facility]annCHE[facility] FDCZF6541-31-86 20:29:003.2[facility]annCHEM PANEL 2014-12-30 20:29:0012[facility] DcgfwzcTTQSMURPRD1946-23-40 20:29:00* Test Item Value Reference Range Interpretation Comments PTT (test code = PTT) 34.3 s 22.9-35.8 [facility] ZSTDS5677-52-55 14:41:00None Seen (12/30/14 9:41 AM) [facility] BHMHN0280-96-59 14:41:00Performed (12/30/14 9:41 AM) [facility] QIQTV4663-04-95 14:41:001.0[facility] IADGF6514-13-09 14:41:00Negative (12/30/14 9:41 AM)[facility] JVLNE8599-23-87 14:41:00Negative *NA*(12/30/14 9:41 AM)[facility] VLKVF2337-68-47 14:41:00Negative (12/30/14 9:41 AM)[facility] YJJLU9597-58-76 14:41:00Negative (12/30/14 9:41 AM)[facility] AQBSU8849-82-18 14:41:00* Test Item Value Reference Range Interpretation Comments UA pH (test code = UA pH) 8.5 1 5.0-8.0 [facility] UYQES8292-02-16 14:41:00Slight Cloudy (12/30/14 9:41 AM)[facility] SZIFP9804-28-26 14:41:00* Test Item Value Reference Range Interpretation Comments UA Spec Grav (test code = UA Spec Grav) 1.015 1 [facility] PACNJ2663-40-85 14:41:00Yellow *NA*(12/30/14 9:41 AM) [facility]annCHEM EPZVL6145-49-00 13:18:000.5[facility]annCHEM PANEL 2014-12-30 11:55:75679Pamxiidl HermannCHEM EWBTG0153-67-04 11:55:0044[facility]annCHEM XYVXM9741-94-18 11:55:30320Crpphbie HermannCHEM DVSBE0656-85-39 11:55:000.5[facility]annCHEM WJTIT8369-14-20 11:55:0026[facility]annCHEM RVLGS2050-59-65 11:55:0023[facility] HermannCHEM NWKRO0568-02-47 11:55:001.0 [facility] LBQTX4628-80-12 11:55:003.5[facility]annCHEM PANEL 2014-12-30 11:55:003.6[facility]ann[facility] NOLIV8088-33-55 11:55:007.1[facility]annCHE[facility] QYCBO1138-24-56 11:55:0013[facility]annCHE[facility] VJDAC0353-60-91 11:47:0093[facility]annCHEM GXNYF4895-31-46 11:47:008.4[facility]annCHEM GICHI6567-12-46 11:47:0025[facility]annCHE[facility] NQZFX1527-99-42 11:47:91700 [facility]annCHE[facility] DITMO3193-00-97 11:47:003.8[facility]annCHEM PANEL 2014-12-25 11:47:000.6[facility]annCHEM KEGQI1788-94-29 11:47:0088[facility]annCHEM XSRTD6340-77-03 11:47:59678Ghqeysgm HermannCHEM XUTGG2509-25-82 11:47:005[facility]annCHEM MMRQB0163-47-96 11:47:0010.8[facility] WNCQSCSBNQ3584-79-26 11:47:000.4[facility] SwbyilrCLKDLDKOIJ7640-78-92 11:47:000.0 [facility] WtapgmpNGVUJDIPUZ2091-32-53 11:47:000.3[facility] HermannHEMATOLOGY 2014-12-25 11:47:001.5[facility] OzvufacMOPYSZYUJF2749-91-03 11:47:002.7[facility] NswbnduHIJMZQAFRJ5508-28-17 11:47:007.6[facility] NtzkomoWUAWEDFLEI2581-73-29 11:47:0030.7[facility] EinrcgoBCQQHMOGOC9562-06-55 11:47:005.2[facility] [place] OKEPNHBHOL7856-01-61 11:47:000.6[facility] CbhycrsDETCHBJBGU6107-36-27 11:47:00 55.9[facility] RixqxzvQRXYWAUHQS6842-85-19 11:47:008.2[facility] HermannHEMATOLOGY 2014-12-25 11:47:49525Yvwgdcyr TvvamcwBLKEPGZBSN5429-18-65 11:47:009.5[facility] UblsffhJIVGMHITWW6989-82-91 11:47:0014.6[facility] WgfqhmyWPJROOAVAQ1199-50-88 11:47:0033.6[facility] OdmviagQBNAVDUYTD0536-81-20 11:47:0028.2[facility] [place] HFOQGKKKSB9063-52-57 11:47:00* Test Item Value Reference Range Interpretation Comments MCH (test code = MCH) 29.1 pg 27.0-31.0 [facility] CwdnjmdAGOSIMBJIK7752-75-75 11:47:0086.6[facility] HermannHEMATOLOGY 2014-12-25 11:47:003.26[facility] CxiacdwYXARCPJSGS5320-18-05 11:47:004.9[facility]annCHEM VMLJJ2362-07-10 10:50:001.0[facility]annCHEM VKFRG8644-22-10 10:50:002.7[facility]annCHEM OAAUI8467-59-90 10:50:0012.5[facility]annCHEM YMEJG5107-31-61 10:50:008[facility]annCHE[facility] NTAFM4664-80-08 10:50:0093 [facility]annCHEM QQQWG1389-07-72 10:50:0016[facility]annCHEM PANEL 2014-12-24 10:50:008.2[facility]annCHEM XFZSP0983-34-72 10:50:005.4[facility]annCHEM URUNK5461-56-43 10:50:0015[facility]annCHE[facility] HBJJK7210-44-03 10:50:002.7[facility]annCHEM HAPEB3576-59-39 10:50:000.6[facility]annCHEM DMLQS6121-13-67 10:50:0088[facility]annCHEM CXFCE7155-77-86 10:50:0090 [facility]CHE[facility] VFDGP3335-06-48 10:50:005[facility]annCHEM PANEL 2014-12-24 10:50:000.6[facility]annCHEM QVSTV0799-99-16 10:50:90298Gpyxwyjn HermannCHEM RHMGQ0570-26-08 10:50:003.5[facility]annCHEM RYCVI0524-49-20 10:50:11493Npfwaibv HermannCHEM GBAOZ3134-82-49 10:50:0024[facility] FVSPRBEYNN7332-98-41 10:50:005.0[facility] FtmydqqFVNILABIMA3779-39-13 10:50:36234 [facility] CrufdarQQXSIQEUYG1058-11-97 10:50:0033.8[facility] HermannHEMATOLOGY 2014-12-24 10:50:0014.4[facility] YgvwjxqPKSEQRNNQM0294-09-48 10:50:0085.7[facility] MyuppyiNBARGYZTOQ2895-75-78 10:50:00* Test Item Value Reference Range Interpretation Comments MCH (test code = MCH) 29.0 pg 27.0-31.0 [facility] LxjuotfVEQGEEPIET6593-69-90 10:50:0027.3[facility] HermannHEMATOLOGY 2014-12-24 10:50:003.19[facility] KftvrtfNAMJOFVVPB0412-30-01 10:50:009.3[facility] AtsmnggVTCQMPAYVQ2779-83-79 10:50:008.5[facility] ZhklubbSOAHPZOIDO8459-79-11 10:50:001.1[facility] NseegxgIOGMQALESI2264-23-98 10:50:000.7[facility] JBFWSEQEWR9525-18-01 10:50:000.4[facility] LmoyoyvXLRRGMXBDQ6393-84-94 10:50:000.1 [facility] SqkovaoNKUHPOSRPZ4818-82-28 10:50:0022.4[facility] HermannHEMATOLOGY 2014-12-24 10:50:002.8[facility] DuylbvnTXOHAMFQRT0909-91-63 10:50:003.3[facility] QurwryhSHZXRLJFMI5193-98-77 10:50:000.0[facility] YvofjjiLKETBWBTDI8497-57-35 10:50:007.7[facility] WwgaikpAYIAAFCXJV4577-17-12 10:50:0066.4[facility] [place] BACTERIAL - UCXUDJKB8567-67-76 05:25:00Negative (12/24/14 12:25 AM)[facility]annCHEM ZAOMZ8222-03-27 09:28:0093[facility]annCHEM AYYYX9147-57-82 09:28:000.6[facility]annCHEM ZZTEK7054-03-28 09:28:0085[facility]annCHEM SAMLC0420-40-31 09:28:48312Oxkxshzt HermannCHEM RQMGO0980-21-01 09:28:003.5 [facility]annCHEM SQWSS6773-30-66 09:28:000.6[facility]annCHEM PANEL 2014-12-23 09:28:005[facility]annCHEM JFVWK2877-27-14 09:28:0013[facility]annCHEM BSGEW1786-52-33 09:28:07386Ypjeuozo HermannCHEM TTCKX9712-82-21 09:28:008.1[facility]annCHEM EZAKW0924-49-48 09:28:0022[facility]annCHEM ZMEYM0109-74-79 09:28:0018[facility]annCHEM CVALJ6570-26-88 09:28:002.7 [facility]CHE[facility] PRXGS5865-57-97 09:28:005.2[facility] HermannCHEM PANEL 2014-12-23 09:28:0086[facility]annCHEM AFWAH9915-26-29 09:28:0013.5[facility]annCHEM ZIHCW8928-67-00 09:28:008[facility]annCHEM RAEIX1797-95-63 09:28:002.5[facility]annCHEM RAYQX9033-04-14 09:28:001.1[facility] ZAHTQEAQUL3489-97-46 09:28:008.6[facility] GaxoivmDNCIVYZFKC6391-47-58 09:28:00 32.8[facility] DkgbglqHDWSEXWMAC6646-50-90 09:28:007.2[facility] HermannHEMATOLOGY 2014-12-23 09:28:0026.9[facility] XlyasxqQRQZVPEEEQ3202-59-76 09:28:003.09[facility] JjkdpksYGPXJZTYNC8951-03-45 09:28:0014.6[facility] OcfwfvcHVSQBLCECK6319-68-36 09:28:11330Apcrukzr AycapksKKTLVMQGGK0497-16-96 09:28:00* Test Item Value Reference Range Interpretation Comments MCH (test code = MCH) 28.6 pg 27.0-31.0 [facility] ZkydwsyEPRVGCMORF2037-62-74 09:28:0087.1[facility] HermannHEMATOLOGY 2014-12-23 09:28:008.8[facility] BrazshcYAPENXKYCX3274-62-35 09:28:000.0[facility] CxdnauqRWWHSJRYKF6506-60-08 09:28:000.3[facility] FifuuxaFECYQPLHIQ1964-45-65 09:28:000.2[facility] IndbodtOLCWWZCCZS5264-54-30 09:28:001.1[facility] IXHQBSXIZJ2622-09-84 09:28:003.7[facility] BwbmynnOQIOLGMKUK2377-68-98 09:28:002.4 [facility] TryrrnzNKWIUZYYUK7664-57-66 09:28:005.7[facility] HermannHEMATOLOGY 2014-12-23 09:28:000.5[facility] YclexzxIJASEKIUMQ4491-29-95 09:28:0078.4[facility] AytwqioFNEOYMIZQX5633-41-94 09:28:0015.0[facility] HermannCHEM FLMZF0715-47-34 11:06:001.2[facility]annCHEM DABGN0098-94-82 11:06:002.3[facility]annCHEM DRXHR5212-46-44 11:06:0020[facility]annCHEM XTJQK4190-42-21 11:06:002.7 [facility]annCHEM BHREV3223-85-86 11:06:005.0[facility] HermannCHEM PANEL 2014-12-22 11:06:000.7[facility] HermannCHEM PFLIV1877-45-85 11:06:0014[facility]annCHEM YKLZU1786-01-12 11:06:0073[facility]annCHEM GRNZU2284-32-89 11:06:0021[facility] HermannMOLECULAR JZQSKSQJXK5433-39-47 22:19:00Negative (12/21/14 5:19 PM)[facility] HermannMOLECULAR ZHQEUTPDKX9449-25-65 22:19:00Negative 8(12/21/14 5:19 PM)[facility] HermannMOLECULAR DDCOXVUCUE4689-37-67 22:19:00 Negative (12/21/14 5:19 PM)[facility] HermannMOLECULAR IAFHLFZURS3516-01-92 22:19:00Flocked 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 Swab (12/21/14 5:19 PM)[facility]annCHEM DBITP6193-97-29 21:58:000.14[facility] BfuexvjSDOCSBEMXY1215-45-37 21:58:00* Test Item Value Reference Range Interpretation Comments PTT (test code = PTT) 33.3 s 22.9-35.8 [facility] SZQFL7632-09-48 10:46:00Negative *NA*(12/21/14 5:46 AM) [facility] QWUUE2687-95-02 10:46:00Negative (12/21/14 5:46 AM) [facility] FWCPO2197-82-02 10:46:00Negative (12/21/14 5:46 AM) [facility] OLYOG6665-18-60 10:46:001.0[facility] AND NQWDX4437-84-92 10:46:00Negative (12/21/14 5:46 AM)[facility] VYFTA2990-94-87 10:46:00Clear (12/21/14 5:46 AM)[facility] STOOL 2014-12-21 10:46:00* Test Item Value Reference Range Interpretation Comments UA pH (test code = UA pH) 6.0 1 5.0-8.0 [facility] SEHYP3065-14-27 10:46:00* Test Item Value Reference Range Interpretation Comments UA Spec Grav (test code = UA Spec Grav) 1.015 1 [facility] PNXIG2711-06-75 10:46:00Yellow *NA*(12/21/14 5:46 AM) [facility] GUZEG8072-88-07 10:46:00None Seen (12/21/14 5:46 AM) [facility] PTTQJ5022-55-45 10:46:00Performed (12/21/14 5:46 AM) [facility] MktuyqdGEOZWWCJWI6257-20-42 09:08:00Normal (12/21/14 4:08 AM)[facility] TurerjgPZOMJFHUOV2101-15-42 09:08:00Normal (12/21/14 4:08 AM)[facility]annCHEM MHQTE4012-17-11 08:43:001.1[facility] HermannCHEM OCYYE6331-22-05 08:43:11733 [facility] HermannVIRAL - FNEXPUTK6543-37-89 08:43:00Negative (12/21/14 3:43 AM) [facility]annVIRAL - TMOQPLSQ0615-84-49 08:43:00Negative 9(12/21/14 3:43 AM) [facility] XuxxxjzDYOJPTFUAPKO3274-36-78 08:15:0010.2[facility] HermannELECTROLYTES 2014-11-27 08:15:008.0[facility] XvtrcftOQDTMNLJGDZQ8898-80-84 08:15:0024[facility] RgjbbgjWLWTOVKVVKXX4995-81-17 08:15:95498Zglibwwb KbdyzadYUJGQPAPYCQH8458-30-81 08:15:0077[facility] ZmyyzchVHNULMUHNOCM8332-42-17 08:15:86610Zfodquha Vamshi DKQBGZDUAHDP7697-55-77 08:15:000.4[facility] IoonaotNWUXHRCVEPJC5704-38-20 08:15:18478Llgytayo IhlcichWMXVMRYTTLAV3294-03-37 08:15:004.2[facility] KGLKATLBNTAA7693-22-89 08:15:006[facility]annCHEM XVRWR3009-88-78 09:12:0098 [facility]annCHEM BKAPN4638-05-05 09:12:007[facility] HermannCHEM PANEL 2014-11-26 09:12:44269Fbewxtdi HermannCHEM TKWYP4422-17-89 09:12:000.5[facility] HermannCHEM PHPZZ3598-94-62 09:12:84664Vkfytouy HermannCHEM CIBTB6564-58-80 09:12:003.9[facility]annCHEM VGMFC8519-62-13 09:12:007.9[facility] HermannCHEM FBJXW9870-73-64 09:12:0019[facility]annCHEM MVISI5499-77-10 09:12:0081 [facility]annCHEM QEIJH3341-76-81 09:12:0010.9[facility] HermannHEMATOLOGY 2014-11-26 09:12:007.7[facility] RvhcttsKTMSEALVDI8511-07-70 09:12:00* Test Item Value Reference Range Interpretation Comments MCH (test code = MCH) 29.0 pg 27.0-31.0 [facility] NomhhhqSMYYNUMJAC9344-55-61 09:12:0033.8[facility] HermannHEMATOLOGY 2014-11-26 09:12:0013.1[facility] ZkckxjhUMGPRYSFDB4936-74-39 09:12:02862Bsuvshdx UudqwxaELZMBNPIQB5982-19-32 09:12:0010.3[facility] NjutlnfZXWFMYEXNL1717-58-51 09:12:0030.4[facility] AcvceblPWDEHRFOVN4588-32-26 09:12:0085.9[facility] BJVIZRPBVS0740-26-01 09:12:004.2[facility] OeluwnmXULPIYRFOA7899-62-46 09:12:00 3.54[facility] PglxrrgCMJMDAUHLM7074-70-20 09:12:001.3[facility] HermannHEMATOLOGY 2014-11-26 09:12:002.0[facility] UzkxgkkEVZUEYGJVR6544-42-85 09:12:000.1[facility] IcjawzjRFMTHLBGEV8321-45-55 09:12:000.7[facility] NtshiczYEROZFLZQN0446-25-35 09:12:002.0[facility] QlhxecgPTNYMFLWYA3535-75-10 09:12:000.1[facility] GZRBKTKXCM1727-74-76 09:12:000.0[facility] ZzwnrpnDCCQHLRJRX2900-86-83 09:12:00 47.2[facility] SxnxrlkSSOXAZKIML9851-91-17 09:12:0047.5[facility] HermannHEMATOLOGY 2014-11-26 09:12:003.3[facility] HermannCHEM MIKJF2523-71-98 20:48:001.7[facility] HermannCHEM UWEZQ1804-35-84 20:48:001.1[facility]annCHEM CIXFM3320-17-33 20:48:003.1[facility] HermannCHEM SMZOF0323-81-53 20:48:0020[facility]annCHEM HCFWD2464-44-68 20:48:006.5[facility] HermannCHEM BWEII8615-23-79 20:48:0093 [facility]annCHEM MXUUQ6958-24-83 20:48:003.5[facility] HermannCHEM PANEL 2014-11-25 20:48:47662Brepmwil HermannCHEM SHXAP2640-30-28 20:48:0012[facility]annCHEM GNKMF6132-55-91 20:48:000.6[facility] HermannCHEM FGGHU6776-42-63 20:48:63525Pybrvdzd HermannCHEM OSIRK7076-73-94 20:48:0093[facility]annCHEM UOSNW5242-08-92 20:48:0086[facility] HermannCHEM XVFFC2947-66-40 20:48:0023 [facility]annCHEM STUYK9996-77-37 20:48:0037[facility]annCHEM PANEL 2014-11-25 20:48:003.5[facility]annCHEM YGZDJ6827-76-27 20:48:006.6[facility]annCHEM FGXCG7727-77-37 20:48:000.4[facility] HermannCHEM UJYMK6840-13-94 20:48:0030[facility]annCHEM WJZAH3087-43-58 20:48:008.9[facility] LOVRWJNAUT0162-48-65 20:48:004.00[facility] XbktymrRZURVLRHXV5724-46-37 20:48:00 34.4[facility] AsgdtstLPMXKHLEOS7063-13-24 20:48:0011.6[facility] HermannHEMATOLOGY 2014-11-25 20:48:0012.9[facility] HbowofgVVYXSFBHUN7947-62-78 20:48:50091Ikelyavh GudytvfLTYOEWRGEE3287-67-28 20:48:0086.1[facility] IvwxzclXKSTQUFDEG0811-76-45 20:48:0033.8[facility] GvqdlnuRNNYXXWMNL6838-15-98 20:48:00* Test Item Value Reference Range Interpretation Comments MCH (test code = MCH) 29.1 pg 27.0-31.0 [facility] CryzxgaESLWJEFRCL6768-39-53 20:48:007.9[facility] HermannHEMATOLOGY 2014-11-25 20:48:004.5[facility] MsnkgqeOAQQHRAJSO8888-80-76 20:48:000.0[facility] LblknomZQMLGLRTPZ4954-84-25 20:48:001.0[facility] HkrerhkODNLFDRBIJ5578-74-30 20:48:003.0[facility] IhziiikUVOTTVQVWX9718-43-33 20:48:0040.9[facility] PQYOIVXPSB0820-04-48 20:48:0054.5[facility] NkobhwgFRUNXSJUWF8897-25-24 20:48:00 1.9[facility] TzoqxxvDNZXHADAVY1105-74-67 20:48:002.5[facility] HermannHEMATOLOGY 2014-11-25 20:48:000.6[facility] PvegmfrBRRWLTRCMO6073-33-99 20:48:000.1[facility] XyxlxwkZKHMVIJKFL2586-51-48 20:48:000.0[facility] HermannCHEM YALAH1980-32-36 13:46:0093[facility]annCHEM MWEFC3480-74-73 13:46:000.6[facility] HermannCHEM ZZFHF5719-52-06 13:46:006[facility]annCHEM XWXIR5589-94-91 13:46:0010.7 [facility]annCHEM GNTLU7538-71-11 13:46:53877Crllluas HermannCHEM PANEL 2014-08-15 13:46:0024[facility]annCHEM SEMDC7936-06-32 13:46:003.7[facility]annCHEM IICOR1879-40-43 13:46:98635Qojztxbj HermannCHEM PIEQA4748-51-39 13:46:0078[facility] HermannCHEM FBMCG1711-80-80 13:46:008.3[facility] HermannCHEM TKCTH4077-54-63 14:52:0098[facility]annCHEM TGCHX9837-67-97 14:52:0082 [facility]annCHEM ERQOC2530-04-27 14:52:000.5[facility]annCHEM PANEL 2014-08-14 14:52:006[facility]annCHEM ETOGP5840-96-91 14:52:36480Mqaxidgz HermannCHEM HKLRS3636-99-15 14:52:003.6[facility]annCHEM SLWLI2367-08-04 14:52:0097[facility] HermannCHEM JYAMH4965-50-49 14:52:0022[facility]annCHEM TIIBK7435-53-17 14:52:008.0[facility]annCHEM IAWVQ4781-03-10 14:52:0012.6 [facility] NppqhksKCDNEDUYMTVP8279-91-41 06:15:003.6[facility] HermannELECTROLYTES 2014-08-14 06:15:0098[facility] CkynbloPIWIOJLHNQEF2021-84-93 06:15:0023[facility] TbfnogbBNHOZIDASHNA2601-84-17 06:15:006[facility] HkbhntgVYUQGUWSIMXX2561-14-34 06:15:000.6[facility] TxpoyhvVVVBSRFMUTZG3367-72-87 06:15:67973Azgicdjr [place] HYDGROYTAHBX4481-87-52 06:15:0080[facility] ZxewvqtXYHLMBATWZFC4305-22-73 06:15:00 93[facility] PqofianKBHJQBRVBXBH1574-06-75 06:15:008.1[facility] HermannELECTROLYTES 2014-08-14 06:15:009.6[facility] HermannBACTERIAL - MJPKBZHN2511-86-09 01:30:00 Negative 7(08/13/14 7:30 PM)[facility] HermannCHEM GGZBZ1689-81-34 00:54:63866 [facility] HermannTHYROID HPDWJ0052-64-71 00:54:002.530[facility]annURINE AND BASWU4647-34-63 22:15:00Negative (08/13/14 4:15 PM)[facility] SCMPH2817-87-36 22:15:000.2[facility]UR[facility] AND DYWZU1448-92-25 22:15:00 Negative (08/13/14 4:15 PM)[facility] LXFTO6518-71-62 22:15:00 Negative (08/13/14 4:15 PM)[facility] EZHOU9411-25-44 22:15:00 Trace *ABN*(08/13/14 4:15 PM)[facility] RTVGW6065-95-12 22:15:00 Negative (08/13/14 4:15 PM)[facility] AND XWBZF1914-63-59 22:15:00* Test Item Value Reference Range Interpretation Comments UA pH (test code = UA pH) 6.5 1 5.0-8.0 [facility] DUHTB0045-73-57 22:15:00Negative *NA*(08/13/14 4:15 PM) [facility] TVREJ1014-73-42 22:15:00Clear (08/13/14 4:15 PM) [facility] GUIYA2281-16-68 22:15:00Yellow *NA*(08/13/14 4:15 PM) [facility] PNSZG0116-85-41 22:15:00* Test Item Value Reference Range Interpretation Comments UA Spec Grav (test code = UA Spec Grav) 1.020 1 [facility]URINE JJEB6946-39-70 22:15:03460Qefviifl HermannCARDIAC ENZYMES 2014-08-13 22:14:0063[facility] HermannCARDIAC PDDQSCH9329-72-04 22:14:00<0.02 [facility]annCARDIAC EOAPBAW3511-06-11 22:14:000.7[facility] HermannCARDIAC YLIDEDX8168-37-48 22:14:001.1[facility] HermannCHEM DJBNL8056-60-67 22:14:000.7 [facility]annCHEM SMWHQ3759-21-14 22:14:0024[facility] HermannCHEM PANEL 2014-08-13 22:14:0028[facility] HermannCHEM YFNMD0858-87-03 22:14:0062[facility] HermannCHEM TLKJP8226-96-42 22:14:001.2[facility] HermannCHEM YACNL2677-09-63 22:14:0020[facility] HermannCHEM ZEBKX5476-57-05 22:14:007.1[facility] HermannCHEM MXYDE1056-68-00 22:14:003.3[facility] HermannCHEM ISRSF5703-73-18 22:14:003.8 [facility] NjsqzqmYOQSJKVOAR3834-35-45 22:14:007.8[facility] HermannHEMATOLOGY 2014-08-13 22:14:007.3[facility] LlqplmpLTUGUACLDH1351-07-06 22:14:004.61[facility] PordtqySKMBOPWRKI7705-85-41 22:14:63522Ttiuatqo SkcihmyJNHNGIXFEQ9829-16-59 22:14:0033.0[facility] WkspmyqHAUBXVKGXE9043-33-44 22:14:0013.0[facility] MGVCWCPADM2222-93-07 22:14:00* Test Item Value Reference Range Interpretation Comments MCH (test code = MCH) 29.0 pg 27.0-31.0 [facility] ZiykzpiCRJFWTGUZK7013-19-36 22:14:0087.8[facility] HermannHEMATOLOGY 2014-08-13 22:14:0040.5[facility] CzfqzczFOAYYICMCA0194-46-46 22:14:0013.4[facility] AeoiztpONEVFSORWD3643-01-28 22:14:004.5[facility] KkjbamdIVKKKAKQGH8486-36-81 22:14:002.5[facility] YrkrlhqTQKGMDHZQK1676-03-62 22:14:000.4[facility] VRPSNFWODJ1647-69-26 22:14:007.4[facility] ClgbpxbNRBPPVISTQ9408-00-90 22:14:00 28.1[facility] IcavwerNXOCYDRJGC6283-96-52 22:14:002.1[facility] HermannHEMATOLOGY 2014-08-13 22:14:000.5[facility] VldqwcaVQMOTPUPVF8084-43-74 22:14:000.0[facility] OdlfethMPSASYGYLX8161-61-65 22:14:000.2[facility] CfegggfDQIAKDGUFK2528-82-71 22:14:0061.6[facility] IjluawrFKZLVHHFTP2371-21-02 18:30:28Many /LPF *ABN*(02/24/2013 13:30:28) [facility] MosmoxjPPXPIEYEXD7718-84-61 18:30:28 Occasional /HPF (02/24/2013 13:30:28) [facility] FhyuoemNSKCXVNCNJ4296-10-34 18:30:280-2 /HPF (02/24/2013 13:30:28) [facility] JfawrcxEQEPUPOCLT7549-09-83 18:30:280-2 /HPF (02/24/2013 13:30:28) [facility] PwelpliFLJCRTVQNR8023-22-80 18:30:28Rare /LPF (02/24/2013 13:30:28) [facility] AqnruouNWVOKPAVNU3900-36-71 18:30:28Performed (02/24/2013 13:30:28) [facility] LvibmdcHNOAUNSMAT5261-74-02 18:30:28Negative (02/24/2013 13:30:28) [facility] OrtdbcfSBRITRECGQ7802-53-66 18:30:28Negative (02/24/2013 13:30:28) [facility] PsyeeisTEORUNBERN5257-74-34 18:30:280.2[facility] VpccqztWSYIHAYZSB6063-33-08 18:30:28Negative *NA*(02/24/2013 13:30:28) [facility] GwuybqbKPMKBYAJFT7248-65-71 18:30:28Negative (02/24/2013 13:30:28) [facility] MfnteqgIDIRTZERYK6810-70-10 18:30:28Negative *NA*(02/24/2013 13:30:28) [facility] DqlrogjYPGPGNGJSH0794-85-44 18:30:28Negative (02/24/2013 13:30:28) [facility] MdvkruqAACPOSJUAS7230-21-13 18:30:28* Test Item Value Reference Range Interpretation Comments UA pH (test code = UA pH) 6.0 1 5.0-8.0 N [facility] EjkvrplFGVAKSONQV6921-59-41 18:30:28Negative (02/24/2013 13:30:28) [facility] PzilxraRJMZGXJPRO7406-96-22 18:30:28>=1.030 *ABN*(02/24/2013 13:30:28) [facility] JxoljqzJBXBZCOIZY0413-02-01 18:30:28Clear (02/24/2013 13:30:28) [facility] XtzbhhcPAVJRBPASR4624-64-46 18:30:28Yellow *NA*(02/24/2013 13:30:28) [facility] FjmwwqhTAZDFPAEN8928-31-83 18:30:001.5[facility]annCHEMISTRY 2013-02-24 18:30:001.2[facility] CcuvrixRPQDJQWZA4705-83-60 18:30:007.2[facility] QntcrraQDBNYWIEN0958-93-69 18:30:0031[facility] AwjvqxwLTVVLBYRK8235-56-95 18:30:003.9[facility] MzhgavyJKVIEPLOP9477-19-49 18:30:0067[facility] BIBMRZUNG8851-33-48 18:30:000.5[facility] CsjlsjtPWACVPWZX8322-60-78 18:30:009.2 [facility] HibpmjrLNCJAVCLF2899-60-96 18:30:0098[facility]annCHEMISTRY 2013-02-24 18:30:0027[facility] DpxyvvyTGBTLPLUU6133-44-59 18:30:003.9[facility] WgytkfaJMGVSAVSN8290-29-73 18:30:0012.9[facility] NlnhmvmMSBRFPVIR9488-09-65 18:30:0021[facility] WfiaxfyNBIPCHNIK3924-15-99 18:30:0031[facility] VXXMSAHKI3717-52-01 18:30:003.3[facility] XrlczckWWSGILVSJ4793-46-89 18:30:41523 [facility] JmzxmrjYWPGTORRS7983-88-86 18:30:0022[facility]annCHEMISTRY 2013-02-24 18:30:000.7[facility] ZocnywsKPMRFSYLQ5363-62-35 18:30:0089[facility] LkueyeaPTUWQQBAC3449-62-02 18:30:0089[facility] KceriyoFQABTRSFW0046-17-28 18:30:0054[facility] OiejhmhMRNTPFWNI8562-26-11 18:30:000.8[facility] JTXEQGSAS7100-63-76 18:30:00<0.02[facility] PfwgmwtQHDFDSMFTV3797-67-04 18:30:00 0.5[facility] OehdvgdQHZXNHHZRW2168-14-66 18:30:000.1[facility]annHEMATOLOGY 2013-02-24 18:30:000.9[facility] JceswcqWMJNARFSNO6454-46-39 18:30:004.5[facility] UvpjvkxEJJXHCMQUQ6667-81-21 18:30:001.5[facility] BricmyiKWKBKJJVUE3954-53-32 18:30:001.7[facility] XxyumjpPWXIPDVJOQ3461-72-09 18:30:0067.0[facility] GGCUDJHFRY6079-77-56 18:30:0022.6[facility] OzptiaiKRAUSWBWNZ4834-65-38 18:30:00 7.8[facility] OllcpfdZUOJDPYKIZ7623-37-02 18:30:000.1[facility]annHEMATOLOGY 2013-02-24 18:30:00* Test Item Value Reference Range Interpretation Comments PT (test code = PT) 11.9 s 12.0-14.7 L [facility] IsaxqgpUNLBETSOJX1230-24-36 18:30:000.86[facility]annHEMATOLOGY 2013-02-24 18:30:00* Test Item Value Reference Range Interpretation Comments PTT (test code = PTT) 28.9 s 22.9-35.8 N [facility] BhnhhvuRWGBNWLVCA1388-63-16 18:30:006.8[facility]annHEMATOLOGY 2013-02-24 18:30:004.35[facility] FifldxiZVCSIMZKIE1668-35-19 18:30:0012.7[facility] TqpgvdaLSTTHELQJG0208-70-29 18:30:0038.4[facility] KsczgvsUVPJPMLFPG6644-79-38 18:30:0088.3[facility] DnnkacwUBMPCTHVSS0466-92-02 18:30:00* Test Item Value Reference Range Interpretation Comments MCH (test code = MCH) 29.2 pg 27.0-31.0 N [facility] XcxtxovZMIGLEQHFC5481-55-51 18:30:0033.1[facility]annHEMATOLOGY 2013-02-24 18:30:0014.3[facility] JgdmlotEVJGGQJVYK1985-57-61 18:30:008.3[facility] FzcygqdDIJSBDWECL5497-47-17 18:30:85921Honvjmtp EysxrgcIFTHGSRDTO3313-28-68 10:30:0011.0[facility] OtcqogrFFTFDBTWYF1466-37-67 10:30:0018.3[facility] OWSTZHMULV5435-14-69 10:30:000.2[facility] SiczenaJALHAHGFHY1322-20-28 10:30:000.3 [facility] MexbkivXTMYVGDCEP1194-09-24 10:30:000.8[facility]annHEMATOLOGY 2012-04-16 10:30:005.3[facility] QjszjhbYXOBSJAHKO6015-24-09 10:30:001.4[facility] DqjcxxaBMNHIYWTZQ0896-74-09 10:30:000.0[facility] RglsrcdANRUNTKUQW4548-43-92 10:30:000.0[facility] SexcflcWNFMYWNTSI4327-76-90 10:30:0070.2[facility] NUHULUAPWK4660-32-65 10:30:67403Hqxohidt LszbxafRQBLZERLEL9518-63-51 10:30:008.8 [facility] DabfzbcXPTHOZPTKG8486-57-87 10:30:00* Test Item Value Reference Range Interpretation Comments MCH (test code = MCH) 29.8 pg 27.0-31.0 N [facility] LglzmvbFKLDTFWJIZ5341-80-57 10:30:0034.6[facility]annHEMATOLOGY 2012-04-16 10:30:0012.6[facility] DsbglmgNNNVFBSJSF0842-71-11 10:30:0030.6[facility] DimbzplNJQOPLXVSG9570-68-52 10:30:007.5[facility] PntqvohPTJLWGTAQN4436-62-11 10:30:0010.6[facility] OurwkycNVOTTQWLZY4104-48-57 10:30:0086.2[facility] XXPLMUSEYH3927-79-64 10:30:003.55[facility] HermannBEDSIDE GLUCOSE TESTING 2012-04-16 02:16:63667Tvzuiidu AojvgiuJPESFTNAM0820-45-75 15:14:007.38[facility] GeaqgmdUDBWOOQQT7785-93-83 15:14:004.1[facility] HgyzxliIOBXMIFWQ5838-67-12 15:14:001.15[facility] PmsfpadIQRQSNXEN4173-67-08 15:14:32645Qrdqdgac [place] UGFBANZKA0682-34-53 15:14:0043[facility] ZtuklgtTJIBDMDWD4424-78-38 15:14:0091 [facility] CoqyuvaMFFISOFMW8139-01-19 15:14:0097.0[facility]annCHEMISTRY 2012-04-15 15:14:000[facility] ThmdvrmYYNVZPPNL2230-91-16 15:14:41774Ebpvcwyv EraiwvbJWBMJHBTL3194-85-19 15:14:0025[facility] LmmxhygFIJHYWWJQ8999-44-51 15:14:0032.0[facility] JocnnrdMJSXSHOFX3750-75-59 15:14:0037.0[facility] BLOOD BANK RUSGGQP4643-44-44 17:13:00Negative (04/12/2012 12:13:00) [facility] MlmvrazMBIXVJBBZ4502-27-32 17:13:0088[facility] LfhajycSHEMARIQG0791-52-74 17:13:009.7[facility] RktoftiRLCFOOYZK4771-91-73 17:13:000.7[facility] EFUOMOHZD7403-27-11 17:13:0014[facility] TlrladmWZYTZABEI1041-16-49 17:13:0029 [facility] MxgzglrEJQLEWXIA3557-02-09 17:13:0095[facility]annCHEMISTRY 2012-04-12 17:13:0012.5[facility] ErgpuldSJSIMNKIU2790-74-89 17:13:004.5[facility] NvsxgayMAUXMAOGQ9364-17-43 17:13:44951Ufbxagqx JpwlzciAGXTBKEIUB2009-56-91 17:13:00* Test Item Value Reference Range Interpretation Comments MCH (test code = MCH) 29.8 pg 27.0-31.0 N [facility] VwbueozAEXYFHBMEX0006-08-22 17:13:0034.2[facility]annHEMATOLOGY 2012-04-12 17:13:0012.5[facility] HovqlsgOGPEJIJEVG9379-19-87 17:13:43741Ibebbwfb EjzkwgjMZMNVUIXWH2782-05-00 17:13:008.9[facility] SzjxwasGQJIRJAKZJ0623-62-90 17:13:006.0[facility] LvwtspaPPLNOEUJRH8184-99-50 17:13:004.66[facility] AQOYTWYRMB0182-79-98 17:13:0013.9[facility] GmblqvfHBHADCWLLK7575-57-23 17:13:00 87.1[facility] RngbdpjHIHEDOUJJQ9759-14-97 17:13:0040.6[facility]annHEMATOLOGY 2012-04-12 17:13:000.0[facility] TyuooooGFPRBTYGPK0125-78-39 17:13:000.3[facility] VhqrsonKJXIIEAHGT2545-36-13 17:13:000.0[facility] ChwitgwYJZLMCPKQG2545-96-59 17:13:005.6[facility] YjiuznfONCJQRGNZY7407-12-85 17:13:000.8[facility] GOSRUMICHU5365-09-78 17:13:000.3[facility] EgngtrbTDOFJLNDER8281-43-09 17:13:003.9 [facility] PenlqfmZDWLGZWDRL3367-12-31 17:13:001.7[facility]annHEMATOLOGY 2012-04-12 17:13:0064.6[facility] IimijzuNPXUSFWDDN6947-98-55 17:13:0028.7[facility] ZdsfwrdONKXLNPQKN0516-90-69 17:13:00Negative (04/12/2012 12:13:00) [facility] WrvkriePJKIMQYAZB8408-43-13 17:13:00Negative *NA*(04/12/2012 12:13:00) [facility] [id number] 17:13:000.2[facility] XzoagtlDPHBJYIZKL6345-09-04 17:13:00Not Indicated (04/12/2012 12:13:00) [facility] 17:13:00Negative (04/12/2012 12:13:00) [facility] 2012-[facility]-12 17:13:00Negative (04/12/2012 12:13:00) [facility] 2012-04-12 17:13:00* Test Item Value Reference Range Interpretation Comments UA pH (test code = UA pH) 6.0 1 5.0-8.0 N [facility]AbpjldlMHSWWVKSCC7686-04-02 17:13:00Clear (04/12/2012 12:13:00) [facility] StationTtjxxcqPKBBRKDTVC2237-07-07 17:13:00>=1.030 *ABN*(04/12/2012 12:13:00) [facility] StationCvirqsgMBPXAQCETY5043-74-76 17:13:00Yellow *NA*(04/12/2012 12:13:00) [facility] StationWnckeooOFALJXPNCK3498-48-78 17:13:00Trace *ABN*(04/12/2012 12:13:00) [facility] YlriqidVKBDEOBKIP4407-37-98 17:13:00Negative (04/12/2012 12:13:00) [facility] StationScnkzyzOUZRIGABQR5325-18-23 17:13:00Negative (04/12/2012 12:13:00) [facility]
--- NOTE | 2020-04-14 12:24 | NUR ---
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
== END 2020-04-14 12:32 | disposition home or self-care (01) ==
LOC: FSED 11:42
DX: N39.0 Urinary tract infection, site not specified (principal); R39.15 Urgency of urination; I10 Essential (primary) hypertension; E78.5 Hyperlipidemia, unspecified; K21.9 Gastro-esophageal reflux disease without esophagitis; E03.9 Hypothyroidism, unspecified; Z85.3 Personal history of malignant neoplasm of breast
CPT/HCPCS: 51700; 81003; 87086; 87186; 99283

== ENCOUNTER 2020-08-30 14:27 | Emergency (ER) | payer MEDICARE ==
[~2020-08-30] VITALS: Ht 167.6 cm; Wt 49.5 kg
[~2020-08-30 14:27] MED LIST changes: +CEPHALEXIN500 MG PO
[2020-08-30] MEDS ORDERED: CIPROFLOXACIN 500 MG TAB PO STA (16:50)
[2020-08-30] MEDS ORDERED: PYRIDIUM200 MG PO (17:07)
[2020-08-30] MEDS ORDERED: CIPRO500 MG PO (17:07)
[2020-08-30 17:31] VITALS: BP 158/92
[2020-08-30] MEDS ORDERED: CIPROFLOXACIN 500 MG TAB ONE (17:36)
== END 2020-08-30 17:31 | disposition home or self-care (01) ==
LOC: FSED 16:34
DX: R30.0 Dysuria (principal); N39.0 Urinary tract infection, site not specified; I10 Essential (primary) hypertension; J44.9 Chronic obstructive pulmonary disease, unspecified; E03.9 Hypothyroidism, unspecified; M54.9 Dorsalgia, unspecified; G89.29 Other chronic pain; Z85.3 Personal history of malignant neoplasm of breast
CPT/HCPCS: 87086; 99282

== ENCOUNTER 2021-04-02 10:18 | Emergency (ER) | payer MEDICARE ==
[~2021-04-02] VITALS: Ht 167.6 cm; Wt 47.6 kg
[~2021-04-02 10:18] MED LIST changes: +CIPRO500 MG PO; +PYRIDIUM200 MG PO
[2021-04-02 11:26] VITALS: BP 167/85
[2021-04-02] MEDS ORDERED: CIPRO500 MG PO (11:27)
== END 2021-04-02 11:31 | disposition home or self-care (01) ==
LOC: FSED 10:35
DX: R10.30 Lower abdominal pain, unspecified (principal); N39.0 Urinary tract infection, site not specified; R53.1 Weakness; I10 Essential (primary) hypertension; J44.9 Chronic obstructive pulmonary disease, unspecified; E03.9 Hypothyroidism, unspecified; M54.9 Dorsalgia, unspecified; G89.29 Other chronic pain; Z85.3 Personal history of malignant neoplasm of breast
CPT/HCPCS: 74176; 80048; 81003; 85025; 99284

== ENCOUNTER 2021-12-24 21:05 | Observation (INO) | payer MEDICARE ==
[~2021-12-24] VITALS: Ht 162.6 cm; Wt 46.3 kg
[~2021-12-24 21:05] MED LIST changes: -OMEPRAZOLE20 MG PEG; +OMEPRAZOLE20 MG PO; -SODIUM CHLORI1000 MG; +SODIUM CHLORI1000 MG PO
[2021-12-24] MEDS ORDERED: SODIUM CHLORIDE 0.9% 1000ML 1,000 ML IV ONE (21:45)
[2021-12-24] MEDS ORDERED: ONDANSETRON HCL INJ 2MG/ML 2ML 2 MG/ML VIAL IV STA (21:53)
[2021-12-24] MEDS ORDERED: ONDANSETRON HCL 4 MG ORAL DISINTEGRATING TAB PO ONE (22:15)
[2021-12-24] MEDS ORDERED: ONDANSETRON HCL 4 MG ORAL DISINTEGRATING TAB ONE (22:27)
[2021-12-24] MEDS ORDERED: SODIUM CHLORIDE 0.9% 1000ML 1,000 ML ONE (22:41)
[2021-12-24] MEDS ORDERED: ONDANSETRON HCL INJ 2MG/ML 2ML 2 MG/ML VIAL IV PRN (23:15)
[2021-12-24] MEDS ORDERED: PROMETHAZINE 12.5MG/ NACL 0.9% 12.5 MG/50 ML BAG IV PRN (23:30)
[2021-12-25 00:45] VITALS: BP 142/68
[2021-12-25 05:46] VITALS: BP 118/52
[2021-12-25] MEDS ORDERED: SODIUM CHLORI1000 MG PO (07:07)
[2021-12-25] MEDS ORDERED: SALINE NOSE SPR45 ML INH (07:07)
[2021-12-25] MEDS ORDERED: astelin INH (07:07)
[2021-12-25] MEDS ORDERED: GABAPENTIN300 MG PO (07:07)
[2021-12-25] MEDS ORDERED: LOSARTAN POTAS100 MG PO (07:07)
[2021-12-25] MEDS ORDERED: HYDROMORPHONE HC2 MG PO (07:07)
[2021-12-25 08:00] VITALS: BP 127/66
[2021-12-25 11:02] VITALS: BP 134/55
[2021-12-25] MEDS ORDERED: LEVALBUTEROL HCL SOLN NEBU 0.63 MG/3 ML NEB INH SCH (17:45)
[2021-12-25] MEDS ORDERED: ALBUTEROL SULFATE HFA 8GM INHALATION AEROSOL INH PRN (17:45)
[2021-12-25] MEDS ORDERED: PROMETHAZINE HCL 25 MG TAB PO PRN (17:45)
[2021-12-25] MEDS ORDERED: SALINE 0.65% NAS SOLN 1 SPRAY BTL PRN (17:45)
[2021-12-25 19:40] VITALS: BP 131/64
[2021-12-25] MEDS: DEXTROSE 5%/0.45% SOD CHL 1,000 ML IV SCH (20:37)
[2021-12-25 21:00] VITALS: BP 131/64
[2021-12-25] MEDS ORDERED: GABAPENTIN 300 MG CAP PO SCH (21:00)
[2021-12-25] MEDS ORDERED: SIMVASTATIN 20 MG TAB PO SCH (21:00)
[2021-12-26] MEDS: HYDROMORPHONE HCL 2 MG TAB PO PRN ×2 (01:00→09:00)
[2021-12-26] MEDS ORDERED: ONDANSETRON HCL INJ 2MG/ML 2ML 2 MG/ML VIAL IV STA (02:01)
[2021-12-26] MEDS ORDERED: ONDANSETRON HCL INJ 2MG/ML 2ML 2 MG/ML VIAL IV PRN (02:15)
[2021-12-26] MEDS ORDERED: METOCLOPRAMIDE HCL 10 MG/2ML VIAL IV ONE (02:15)
[2021-12-26] MEDS: DEXTROSE 5%/0.45% SOD CHL 1,000 ML IV SCH ×3 (05:13→16:38)
[2021-12-26 05:24] VITALS: BP 142/62
[2021-12-26 05:44] LABS: BASOPHILS % 0.7 % (0.0-1.0); EOSINOPHILS % 0.4 % (0.0-6.0); HEMATOCRIT 41.2 % (34.2-44.1); HEMOGLOBIN 12.7 g/dL (12.0-16.0); LYMPHOCYTES # (AUTO) 0.6 (1.0-3.2); LYMPHOCYTES % 19.9 % (18.0-39.1); MEAN CORPUSCULAR HEMOGLOBIN 29.4 pg (28-32); MEAN CORPUSCULAR HGB CONC 30.8 g/dL (31-35); MEAN CORPUSCULAR VOLUME 95.4 fL (81-99); MONOCYTES # (AUTO) 0.4 (0.2-0.8); MONOCYTES % 14.9 % (4.4-11.3); NEUTROPHILS # (AUTO) 1.8 (2.1-6.9); NEUTROPHILS % 63.7 % (38.7-80.0); PLATELET COUNT 152 x10e3/uL (140-360); RED BLOOD COUNT 4.32 x10e6/uL (3.6-5.1); RED CELL DISTRIBUTION WIDTH 12.7 % (11.7-14.4)
[2021-12-26 05:45] LABS: ANION GAP 14.7 mmol/L (8-16); CALCIUM 7.2 mg/dL (8.4-10.2); CREATININE, SERUM 0.72 mg/dL (0.57-1.11); POTASSIUM 3.7 mmol/L (3.5-5.1)
[2021-12-26] MEDS: METOCLOPRAMIDE HCL 10 MG/2ML VIAL IV SCH ×3 (06:00→16:39)
[2021-12-26] MEDS ORDERED: LEVOTHYROXINE SODIUM 75 MCG TAB PO SCH (06:00)
[2021-12-26 07:56] VITALS: BP 125/59
[2021-12-26 08:14] VITALS: BP 125/59
[2021-12-26] MEDS: FLUTICASONE PROPIONATE 0.05% TP SCH ×2 (08:52→16:38)
[2021-12-26] MEDS ORDERED: LOSARTAN POTASSIUM 100 MG TAB PO SCH (09:00)
[2021-12-26] MEDS ORDERED: TAMOXIFEN CITRATE 10 MG TAB PO SCH (09:00)
[2021-12-26] MEDS ORDERED: PANTOPRAZOLE SOD 40 MG TABEC PO SCH ×2 (09:00→21:00)
[2021-12-26] MEDS ORDERED: SODIUM CHLORIDE 1 GM TAB PO SCH ×2 (09:00→18:00)
[2021-12-26 11:47] VITALS: BP 146/83
[2021-12-26 15:31] VITALS: BP 150/72
[2021-12-26] MEDS ORDERED: ONDANSETRON ODT4 MG PO (17:11)
[2021-12-26] MEDS ORDERED: METOCLOPRAMIDE HCL 10 MG TAB PO SCH (18:00)
== END 2021-12-26 17:58 | disposition home or self-care (01) ==
LOC: FSED 21:46 → ERHOLD 23:11 → MED/SURG2 12-25 00:30
PROVIDERS: ADMIT Internal Medicine; ATTEND Internal Medicine
DX: A08.4 Viral intestinal infection, unspecified (principal); I10 Essential (primary) hypertension; J44.9 Chronic obstructive pulmonary disease, unspecified; E03.9 Hypothyroidism, unspecified; Z85.3 Personal history of malignant neoplasm of breast; E86.0 Dehydration; E86.1 Hypovolemia; Z20.822 Contact with and (suspected) exposure to COVID-19
CPT/HCPCS: 36415; 80048; 80053; 85025 ×2; 94799; 97116; 97139; 97161; 99284; C9113; G0378 ×3; J2405 ×2; J2765; J7030; Q0162; U0002

== ENCOUNTER 2022-09-29 10:58 | Emergency (ER) | payer MEDICARE ==
[~2022-09-29] VITALS: Ht 167.6 cm; Wt 45.8 kg
[~2022-09-29 10:58] MED LIST changes: +GABAPENTIN300 MG PO; +HYDROMORPHONE HC2 MG PO; +LOSARTAN POTAS100 MG PO; +ONDANSETRON ODT4 MG PO; +SALINE NOSE SPR45 ML INH
[2022-09-29] MEDS ORDERED: CEFDINIR300 MG PO (11:46)
== END 2022-09-29 11:54 | disposition home or self-care (01) ==
LOC: FSED 11:15
DX: R30.0 Dysuria (principal); N30.00 Acute cystitis without hematuria; I10 Essential (primary) hypertension; J44.9 Chronic obstructive pulmonary disease, unspecified; E03.9 Hypothyroidism, unspecified; M81.0 Age-related osteoporosis without current pathological fracture; J45.909 Unspecified asthma, uncomplicated; M54.9 Dorsalgia, unspecified; G89.29 Other chronic pain; Z85.3 Personal history of malignant neoplasm of breast
CPT/HCPCS: 81003; 87086; 87186; 99282

== ENCOUNTER 2024-01-10 18:13 | Emergency (ER) | payer MEDICARE ==
[~2024-01-10] VITALS: Ht 167.6 cm; Wt 45.8 kg
[~2024-01-10 18:13] MED LIST changes: +CEFDINIR300 MG PO
[2024-01-10] MEDS ORDERED: CEFDINIR300 MG PO (18:33)
[2024-01-10] MEDS ORDERED: CEFTRIAXONE 1 GM VIAL ONE (19:03)
[2024-01-10] MEDS: CEFTRIAXONE 1 GM VIAL IM ONE (19:04)
[2024-01-10 19:34] VITALS: BP 164/73; PULSE 74; RESP 18; TEMP 98.2; O2SAT 98
== END 2024-01-10 19:39 | disposition home or self-care (01) ==
LOC: FSED 18:20
DX: R30.0 Dysuria (principal); N39.0 Urinary tract infection, site not specified; I10 Essential (primary) hypertension; J44.9 Chronic obstructive pulmonary disease, unspecified; E03.9 Hypothyroidism, unspecified; J45.909 Unspecified asthma, uncomplicated; M81.0 Age-related osteoporosis without current pathological fracture; M54.9 Dorsalgia, unspecified; G89.29 Other chronic pain; Z85.3 Personal history of malignant neoplasm of breast
CPT/HCPCS: 85025; 87086; 99283; J0696

== ENCOUNTER 2024-07-03 08:47 | Emergency (ER) | payer MEDICARE ==
[~2024-07-03] VITALS: Ht 157.5 cm; Wt 44.5 kg
[~2024-07-03 08:47] MED LIST changes: +CEFPODOXIME PR100 MG PO; +CEFUROXIME500 MG PO
[2024-07-03] MEDS: ACETAMINOPHEN 325 MG TAB PO ONE (10:49)
[2024-07-03] MEDS ORDERED: ACETAMINOPHEN 325 MG TAB ONE (10:57)
[2024-07-03] MEDS ORDERED: ZITHROMAX250 MG PO (13:11)
[2024-07-03] MEDS ORDERED: LIDOCAINE HCL 2% LOCAL 20 ML VIAL ONE (13:23)
[2024-07-03] MEDS: CEFTRIAXONE 1 GM VIAL IM ONE (13:39)
[2024-07-03] MEDS: AZITHROMYCIN 250 MG TAB PO ONE (13:40)
[2024-07-03 13:57] VITALS: PULSE 80; RESP 18; TEMP 98.5; O2SAT 93
== END 2024-07-03 14:00 | disposition home or self-care (01) ==
LOC: FSED 08:56
DX: R50.9 Fever, unspecified (principal); J18.9 Pneumonia, unspecified organism; R05.9 Cough, unspecified; I10 Essential (primary) hypertension; J44.9 Chronic obstructive pulmonary disease, unspecified; E78.5 Hyperlipidemia, unspecified; J45.909 Unspecified asthma, uncomplicated; E03.9 Hypothyroidism, unspecified; M81.0 Age-related osteoporosis without current pathological fracture; M54.9 Dorsalgia, unspecified; G89.29 Other chronic pain; Z11.52 Encounter for screening for COVID-19; Z85.3 Personal history of malignant neoplasm of breast
CPT/HCPCS: 0223U; 71046; 80053; 81003; 85025; 87400; 99284; J0696; J2003

== ENCOUNTER 2024-10-31 11:27 | Emergency (ER) | payer MEDICARE ==
[~2024-10-31] VITALS: Ht 160 cm; Wt 44.6 kg
[~2024-10-31 11:27] MED LIST changes: +ZITHROMAX250 MG PO
[2024-10-31] MEDS ORDERED: CEFDINIR300 MG PO (11:54)
[2024-10-31 12:06] VITALS: PULSE 58; RESP 16; TEMP 99.4; O2SAT 98
== END 2024-10-31 12:06 | disposition home or self-care (01) ==
LOC: FSED 11:32
DX: R30.0 Dysuria (principal); N39.0 Urinary tract infection, site not specified; I10 Essential (primary) hypertension; J44.9 Chronic obstructive pulmonary disease, unspecified; E03.9 Hypothyroidism, unspecified; M81.0 Age-related osteoporosis without current pathological fracture; M54.9 Dorsalgia, unspecified; G89.29 Other chronic pain; Z85.3 Personal history of malignant neoplasm of breast
CPT/HCPCS: 81003; 87086; 87186; 99283

== ENCOUNTER 2025-03-02 17:14 | Emergency (ER) | payer MEDICARE ==
[~2025-03-02] VITALS: Ht 162.6 cm; Wt 44.5 kg
[2025-03-02 17:28] VITALS: PULSE 104; RESP 18; TEMP 98.7; O2SAT 95
[2025-03-02 18:42] VITALS: BP 122/72; PULSE 63; RESP 16
== END 2025-03-02 18:42 | disposition home or self-care (01) ==
LOC: FSED 17:23
DX: R33.9 Retention of urine, unspecified (principal); I10 Essential (primary) hypertension; J44.9 Chronic obstructive pulmonary disease, unspecified; E03.9 Hypothyroidism, unspecified; J45.909 Unspecified asthma, uncomplicated; M54.9 Dorsalgia, unspecified; G89.29 Other chronic pain; M81.0 Age-related osteoporosis without current pathological fracture; Z85.3 Personal history of malignant neoplasm of breast; Z79.60 Long term (current) use of unspecified immunomodulators and immunosuppressants
CPT/HCPCS: 51700; 80048; 80076; 81003; 85025; 99283